=== PATIENT | female | born 1955 | race Hispanic/Latino ===

== ENCOUNTER 2018-09-09 10:29 | Day surgery (SDC) | payer OTHER ==
[2018-09-09] MEDS ORDERED: NA CHLORIDE 0.9% 250 ML ONE (10:58)
[2018-09-09] MEDS ORDERED: Zoledronic Acid/Mannitol/Water 5 MG/100 ML INFUS.BOT IV NR (11:00)
== END 2018-09-09 12:15 | disposition home health service (06) ==
LOC: DS 10:29
PROVIDERS: ATTEND Clinical Nurse Specialist Women's Health
DX: M81.0 Age-related osteoporosis without current pathological fracture (principal)
CPT/HCPCS: 96365; 96366; J3489

== ENCOUNTER 2018-09-25 12:27 | Emergency (ER) | payer OTHER ==
[2018-09-25 13:34] LABS: Absolute Lymphocytes (CBC) 2.3 K/uL (0.7-4.9); Basophils % 0.3 % (0-1.3); Eosinophils % 0.4 % (0-4.4); Lymphocytes % 25.1 % (15.3-44.8); MPV 10.1 fL (7.6-11.3); Monocytes % 7.7 % (3.3-12.3); RBC Red Blood Cell Count 4.65 M/uL (3.86-4.86)
[2018-09-25 13:48] LABS: Albumin 3.8 g/dL (3.4-5.0); Bilirubin Total 0.3 mg/dL (0.2-1.0); Potassium 3.6 mmol/L (3.5-5.1); Protein, Total 8.4 g/dL (6.4-8.2)
[2018-09-25 14:24] LABS: Urine Blood TRACE (NEG); Urine Glucose NEGATIVE (NEG); Urine Protein TRACE (NEG); Urine Specific Gravity 1.025 (1.005-1.030)
[2018-09-25] MEDS ORDERED: NA CHLORIDE 0.9% 500 ML ONE (15:07)
--- NOTE | 2018-09-25 15:29 | EDPHYS ---
Physician Documentation [facility] Name: Bria Ernandez Age: 63 yrs Sex: Female : 1955 Arrival Date: 09/25/2018 Time: 12:28 Bed 24 Private MD: ED Physician Doe Rajan HPI: 09/25 13:04 This 63 yrs old Female presents to ER via Ambulatory with complaints of jmm Fatigue. 13:04 fatigue. Onset: The symptoms/episode began/occurred gradually, 2 month(s) ago. This is jmm a 63 year old female with a history of htn that presents to the ED with complaints of fatigue, weakness beginning approx 2 months ago. Patient states symptoms began after taking a medication for osteoporosis. Daughter states the patient's symptoms worsened today. Patient denies joint pain. Denies chest pain, denies shortness of breath. . Historical: - Allergies: 12:40 No Known Allergies; la1 - Home Meds: 12:40 amlodipine 10 mg tab 1 tab once daily [Active]; aspirin 325 mg Oral tab 1 tab once la1 daily [Active]; - PMHx: 12:40 Hypertension; la1 - PSHx: 12:40 Cholecystectomy; breast augmentation; oophorectomy rina; la1 - Immunization history:: Adult Immunizations up to date. - Social history:: Smoking status: Patient/guardian denies using tobacco. - Ebola Screening: : No symptoms or risks identified at this time. ROS: 13:04 Cardiovascular: Negative for chest pain, palpitations, and edema, Respiratory: Negative jm for shortness of breath, cough, wheezing, and pleuritic chest pain, Abdomen/GI: Negative for abdominal pain, nausea, vomiting, diarrhea, and constipation, MS/Extremity: Negative for injury and deformity, Neuro: Negative for headache, weakness, numbness, tingling, and seizure. 13:04 Constitutional: Positive for malaise. 13:04 All other systems are negative. Exam: 13:04 Constitutional: This is a well developed, well nourished patient who is awake, alert, jmm and in no acute distress. Head/Face: atraumatic. Eyes: EOMI, no conjunctival erythema appreciated ENT: Moist Mucus Membranes Neck: Trachea midline, Supple Chest/axilla: Normal chest wall appearance and motion. Cardiovascular: Regular rate and rhythm. No edema appreciated Respiratory: Normal respirations, no respiratory distress appreciated Abdomen/GI: Non distended, soft Back: Normal ROM Skin: General appearance color normal MS/ Extremity: Moves all extremities, no obvious deformities appreciated, no edema noted to the lower extremities Neuro: Awake and alert, normal gait Psych: Behavior is normal, Mood is normal, Patient is cooperative and pleasant Vital Signs: 12:41 BP 144 / 67; Pulse 80; Resp 16; Temp 98.7(TE); Pulse Ox 98% on R/A; Weight 56.7 kg; la1 Height 5 ft. 2 in. (157.48 cm); 14:54 BP 130 / 74; Pulse 67; Resp 16; Pulse Ox 98% on R/A; la1 15:33 BP 128 / 72; Pulse 66; Resp 16; Temp 98.4; Pulse Ox 99% on R/A; rv 12:41 Body Mass Index 22.86 (56.70 kg, 157.48 cm) la1 MDM: 13:04 Patient medically screened. stephanie 15:23 Data reviewed: vital signs, nurses notes. Counseling: I had a detailed discussion with stephanie the patient and/or guardian regarding: the historical points, exam findings, and any diagnostic results supporting the discharge/admit diagnosis, lab results, the need for outpatient follow up, to return to the emergency department if symptoms worsen or persist or if there are any questions or concerns that arise at home. ED course: Patient is alert and non toxic in appearance. Patient states feeling much better after IVF. Patient prescribed oral antibiotics. patient advised to follow up with pcp for further evaluation and otherwise given strict return precautions. . 09/25 13:06 Order name: CBC with Diff; Complete Time: 13:40 [facility] 09/25 13:06 Order name: CMP; Complete Time: 13:58 [facility] 09/25 13:06 Order name: Saline Lock; Complete Time: 13:30 [facility] 09/25 13:21 Order name: Urine Dipstick--Ancillary (enter results); Complete Time: 14:25 [facility] 09/25 13:40 Order name: Troponin (emerg Dept Use Only); Complete Time: 14:28 [facility] 09/25 13:06 Order name: EKG - Nurse/Tech; Complete Time: 13:30 [facility] 09/25 13:06 Order name: Urine Dipstick-Ancillary (obtain specimen); Complete Time: 13:20 [facility] Administered Medications: 14:53 Drug: NS 0.9% 500 ml Route: IV; Rate: bolus; Site: right antecubital; la1 15:15 Follow up: IV Status: Completed infusion; IV Intake: 500ml rv Disposition: 15:43 Co-signature as Attending Physician, Doe Rajan MD. rn Disposition: 09/25/18 15:28 Discharged to Home. Impression: Dehydration, Malaise and fatigue, Urinary tract infection, site not specified. - Condition is Stable. - Discharge Instructions: Dehydration, Elderly, Urinary Tract Infection, Adult, Fatigue. - Prescriptions for Cephalexin 500 mg Oral Capsule - take 1 capsule by ORAL route every 12 hours for 10 days; 20 capsule. - Medication Reconciliation Form, Thank You Letter, Antibiotic Education, Prescription Opioid Use form. - Follow up: Private Physician; When: 2 - 3 days; Reason: Recheck today's complaints, Continuance of care, Re-evaluation by your physician. Signatures: Dispatcher [employer] EDMS Malachi Manzano PA PA [facility] Doe Rajan MD MD rn Attema, Lee, RN RN la1 Jaime Anaya RN RN rv Corrections: (The following items were deleted from the chart) 15:34 15:28 09/25/2018 15:28 Discharged to Home. Impression: Dehydration; Malaise and rv fatigue; Urinary tract infection, site not specified. Condition is Stable. Forms are Medication Reconciliation Form, Thank You Letter, Antibiotic Education, Prescription Opioid Use. Follow up: Private Physician; When: 2 - 3 days; Reason: Recheck today's complaints, Continuance of care, Re-evaluation by your physician. [facility]
--- NOTE | 2018-09-25 15:29 | ER ---
Nurse's Notes [facility] Name: Bria Ernandez Age: 63 yrs Sex: Female : 1955 Arrival Date: 09/25/2018 Time: 12:28 Bed 24 Private MD: Diagnosis: Dehydration;Malaise and fatigue;Urinary tract infection, site not specified Presentation: 09/25 12:40 Presenting complaint: Patient states: I have been feeling really tired for 2 months, la1 just really exhausted this morning. Transition of care: patient was not received from another setting of care. Onset of symptoms was September 25, 2018. Risk Assessment: Do you want to hurt yourself or someone else? Patient reports no desire to harm self or others. Initial Sepsis Screen: Does the patient meet any 2 criteria? No. Patient's initial sepsis screen is negative. Does the patient have a suspected source of infection? No. Patient's initial sepsis screen is negative. Care prior to arrival: None. 12:40 Method Of Arrival: Ambulatory la1 12:40 Acuity: NED 3 la1 Historical: - Allergies: 12:40 No Known Allergies; la1 - Home Meds: 12:40 amlodipine 10 mg tab 1 tab once daily [Active]; aspirin 325 mg Oral tab 1 tab once la1 daily [Active]; - PMHx: 12:40 Hypertension; la1 - PSHx: 12:40 Cholecystectomy; breast augmentation; oophorectomy rina; la1 - Immunization history:: Adult Immunizations up to date. - Social history:: Smoking status: Patient/guardian denies using tobacco. - Ebola Screening: : No symptoms or risks identified at this time. Screenin:51 Abuse screen: Denies threats or abuse. Nutritional screening: No deficits noted. la1 Tuberculosis screening: No symptoms or risk factors identified. Fall Risk None identified. Assessment: 12:51 General: Appears in no apparent distress. Behavior is calm, cooperative. Pain: Denies la1 pain. Neuro: Level of Consciousness is awake, alert, obeys commands, Oriented to person, place, time, situation. Cardiovascular: Capillary refill < 3 seconds Patient's skin is warm and dry. Respiratory: Airway is patent Respiratory effort is even, unlabored, Respiratory pattern is regular, symmetrical, Breath sounds are clear bilaterally. GI: Abd is soft and non tender X 4 quads. : No signs and/or symptoms were reported regarding the genitourinary system. 14:47 Reassessment: Patient appears in no apparent distress at this time. No changes from la1 previously documented assessment. Patient and/or family updated on plan of care and expected duration. Pain level reassessed. Patient is alert, oriented x 3, equal unlabored respirations, skin warm/dry/pink. 15:15 Reassessment: Patient appears in no apparent distress at this time. Patient and/or rv family updated on plan of care and expected duration. Pain level reassessed. Patient is alert, oriented x 3, equal unlabored respirations, skin warm/dry/pink. patient is awake. does not complain of any pain,. Patient denies pain at this time. Vital Signs: 12:41 BP 144 / 67; Pulse 80; Resp 16; Temp 98.7(TE); Pulse Ox 98% on R/A; Weight 56.7 kg; la1 Height 5 ft. 2 in. (157.48 cm); 14:54 BP 130 / 74; Pulse 67; Resp 16; Pulse Ox 98% on R/A; la1 15:33 BP 128 / 72; Pulse 66; Resp 16; Temp 98.4; Pulse Ox 99% on R/A; rv 12:41 Body Mass Index 22.86 (56.70 kg, 157.48 cm) la1 ED Course: 12:28 Patient arrived in ED. as 12:40 Arm band placed on left wrist. la1 12:41 Triage completed. la1 12:45 Malachi Manzano PA is PHCP. [facility] 12:45 Doe Rajan MD is Attending Physician. [facility] 12:51 Adeline Moulton, DUC is Primary Nurse. la1 12:51 Placed in gown. Bed in low position. Call light in reach. la1 13:30 No provider procedures requiring assistance completed. Inserted saline lock: 20 gauge la1 in right antecubital area, using aseptic technique. Blood collected. 15:16 Report received from adeline harman. rv 15:34 IV discontinued, intact, bleeding controlled, No redness/swelling at site. Pressure rv dressing applied. Administered Medications: 14:53 Drug: NS 0.9% 500 ml Route: IV; Rate: bolus; Site: right antecubital; la1 15:15 Follow up: IV Status: Completed infusion; IV Intake: 500ml rv Intake: 15:15 IV: 500ml; Total: 500ml. rv Outcome: 15:28 Discharge ordered by . stephanie 15:34 Discharged to home ambulatory. rv 15:34 Condition: good 15:34 Discharge instructions given to patient, family, Instructed on discharge instructions, follow up and referral plans. medication usage, Demonstrated understanding of instructions, follow-up care, medications, Prescriptions given X 1. 15:34 Patient left the ED. rv Signatures: Malachi Manzano PA PA jmm Martinez, Amelia as Attema, Lee, RN RN la1 Jaime Anaya RN RN rv
--- NOTE | 2018-09-25 20:10 | EKG ---
Test Date: 2018-09-25 Test Time: 13:26:32 Nutrition Program Instructor: LA MEASUREMENT RESULTS: Intervals: Rate: 74 MS: 146 QRSD: 80 QT: 414 QTc: 459 [place]: P: 83 MS: 146 QRS: -7 T: 29 INTERPRETIVE STATEMENTS: Normal sinus rhythm Normal ECG Compared to ECG 04/10/2010 11:44:13 No significant changes Electronically Signed On 09-25-18 20:08:26 CDT by Seferino Malik
== END 2018-09-25 15:34 | disposition home or self-care (01) ==
LOC: ER 12:27
DX: N39.0 Urinary tract infection, site not specified (principal); E86.0 Dehydration; I10 Essential (primary) hypertension
CPT/HCPCS: 36415; 80053; 81003; 84484; 85025; 93005; 99284

== ENCOUNTER 2019-01-24 19:54 | Emergency (ER) | payer OTHER ==
[2019-01-24] MEDS ORDERED: NA CHLORIDE 0.9% 1,000 ML ONE (21:20)
[2019-01-24] MEDS ORDERED: FOLIC ACID 5 MG/ML VIAL ONE (21:21)
[2019-01-24] MEDS ORDERED: NA CHLORIDE 0.9% 50 ML IV ONE (21:24)
[2019-01-24 21:33] LABS: Absolute Lymphocytes (CBC) 2.6 K/uL (0.7-4.9); Basophils % 0.3 % (0-1.3); Lymphocytes % 24.4 % (15.3-44.8); MPV 11.2 fL (7.6-11.3); RBC Red Blood Cell Count 4.42 M/uL (3.86-4.86)
[2019-01-24 21:36] LABS: Protime INR 1.09
[2019-01-24] MEDS ORDERED: dexAMETHasone 10 MG/ML VIAL ONE (21:51)
[2019-01-24] MEDS ORDERED: LEVETIRACETAM 500 MG/5 ML VIAL IV ONE (21:51)
[2019-01-24] MEDS ORDERED: NA CHLORIDE 0.9% 100 ML IV ONE (21:52)
--- NOTE | 2019-01-24 21:59 | ER ---
Nurse's Notes [facility] Name: Bria Ernandez Age: 63 yrs Sex: Female : 1955 Arrival Date: 01/24/2019 Time: 19:[address] Private MD: Diagnosis: Ataxic gait;Cerebral edema-right frontal brain mass Presentation: 01/24 20:20 Presenting complaint: Patient states: PATIENT LOST HER BALANCE THIS MORNING AROUND 9AM rv AND FELL WHILE AT WORK. SHE HAS HISTORY OF STROKE, 8 YEARS AGO, AND IS ALREADY WEAK ON THE RIGHT LEG. JULY OF THIS YEAR, SHE STARTED HAVING TROUBLE WITH HER LEFT LEG. SHE WAS SEEN BY HER DOCTORS AND IS BEING TREATED FOR OSTEOPOROSIS. TODAY, WEAKNESS IS GETTING WORSE. Transition of care: patient was not received from another setting of care. Onset of symptoms was January 24, 2019 at 09:00. Risk Assessment: Do you want to hurt yourself or someone else? Patient reports no desire to harm self or others. Initial Sepsis Screen: Does the patient meet any 2 criteria? No. Patient's initial sepsis screen is negative. Does the patient have a suspected source of infection? No. Patient's initial sepsis screen is negative. Care prior to arrival: None. 20:20 Method Of Arrival: Wheelchair rv 20:20 Acuity: NED 3 rv Historical: - Allergies: 20:23 No Known Allergies; rv - Home Meds: 20:23 amlodipine 10 mg oral tab [Active]; aspirin 325 mg Oral tab 1 tab once daily [Active]; rv - PMHx: 20:23 Hypertension; CVA; rv - PSHx: 20:23 Cholecystectomy; rv - Immunization history:: Adult Immunizations up to date, Flu vaccine is up to date. - Social history:: Smoking status: Patient/guardian denies using tobacco. - Ebola Screening: : No symptoms or risks identified at this time. Screenin:20 Abuse screen: Denies threats or abuse. Denies injuries from another. Nutritional cc3 screening: No deficits noted. Tuberculosis screening: No symptoms or risk factors identified. Fall Risk Ambulatory Aid- None/Bed Rest/Nurse Assist (0 pts). Gait- Weak (10 pts.). Mental Status- Oriented to own ability (0 pts). 20:20 VAN Screening: Arm Drift: Patient shows no arm weakness. Patient is VAN negative. cc3 Visual Disturbance: No visual disturbance noted. Aphasia: No aphasia noted. Neglect: No neglect noted. 20:45 Patient has been NPO before screening. The patient is alert, able to follow commands. cc3 The patient does not exhibit slurred or garbled speech The patient is not exhibiting difficulty speaking. The patient does not exhibit difficulty understanding words. The patient is able to swallow own secretions with no drooling or need for suction. Patient tolerated one teaspoon of water. No drooling, immediate coughing, gurgling, or clearing of the throat was noted. The patient tolerated 90mL of water. No drooling, immediate coughing, gurgling, or clearing of the throat was noted. The patient passed the bedside swallow screening. Oral medications may be given as ordered. Contact Physician for further diet orders. Provider notified of bedside swallow screening results: Ruiz Pleitez MD. Assessment: 20:20 General: Appears in no apparent distress. uncomfortable, Behavior is calm, cooperative, cc3 appropriate for age. Pain: Denies pain. Neuro: Level of Consciousness is awake, alert, obeys commands, Oriented to person, place, time, situation, Appropriate for age Sales Person are weak on left Weakness in left leg(s) Gait is unsteady, Speech is normal, Facial symmetry appears normal, Pupils are PERRLA, Intact. Cardiovascular: Denies chest pain, Heart tones S1 S2 present Capillary refill < 3 seconds in bilateral fingers Patient's skin is warm and dry. Respiratory: Airway is patent Respiratory effort is even, unlabored, Respiratory pattern is regular, symmetrical, Breath sounds are clear bilaterally. GI: Abdomen is flat, Bowel sounds present X 4 quads. Abd is soft and non tender X 4 quads. : No signs and/or symptoms were reported regarding the genitourinary system. EENT: No signs and/or symptoms were reported regarding the EENT system. Derm: Skin is intact, is healthy with good turgor, Skin is pink, warm \T\ dry. normal. Musculoskeletal: Circulation, motion, and sensation intact. Range of motion: weakness in left leg. 21:10 Reassessment: Patient appears in no apparent distress at this time. Patient and/or cc3 family updated on plan of care and expected duration. Pain level reassessed. Patient is alert, oriented x 3, equal unlabored respirations, skin warm/dry/pink. 22:50 Reassessment: Patient appears in no apparent distress at this time. Patient and/or cc3 family updated on plan of care and expected duration. Pain level reassessed. Patient is alert, oriented x 3, equal unlabored respirations, skin warm/dry/pink. Patient for transfer to [facility], report called and handed over to RN Deo O. Transfer form completed and signed by the patient's daughter. 23:40 Reassessment: Patient appears in no apparent distress at this time. Patient and/or cc3 family updated on plan of care and expected duration. Pain level reassessed. Patient is alert, oriented x 3, equal unlabored respirations, skin warm/dry/pink. [facility] came for patient transport. Patient left ER vitally stable by EMS stretcher with her daughter. No valuables left in the patient's room. Patient denies pain at this time. Patient states feeling better. Vital Signs: 20:22 BP 144 / 68; Pulse 66; Resp 16; Temp 98.4; Pulse Ox 99% ; Weight 54.43 kg; Height 5 ft. rv 2 in. (157.48 cm); 21:00 BP 146 / 91; Pulse 63; Resp 16 S; Pulse Ox 98% on R/A; cc3 22:45 BP 107 / 69; Pulse 60; Resp 18 S; Pulse Ox 99% on R/A; cc3 23:25 BP 118 / 62; Pulse 72; Resp 16 S; Pulse Ox 99% on R/A; Pain 0/10; cc3 20:22 Body Mass Index 21.95 (54.43 kg, 157.48 cm) rv NIH Stroke Scale Scores: 20:20 NIHSS Score: 0 cc3 ED Course: 19:57 Patient arrived in ED. cf2 20:20 Ruiz Pleitez MD is Attending Physician. suresh 20:20 Patient has correct armband on for positive identification. Placed in gown. Bed in low cc3 position. Call light in reach. Side rails up X2. air sampling and monitoring on. Pulse ox on. NIBP on. 20:20 Arm band placed on right wrist. EKG completed in triage. Results shown to . cc3 20:22 Beatriz Dave is Primary Nurse. cc3 20:22 Triage completed. rv 20:45 Inserted saline lock: 20 gauge in right antecubital area, using aseptic technique. cc3 Blood collected. 21:35 CT Head Brain wo Cont In Process Unspecified. EDMS 22:00 US Carotid Artery Bilateral In Process Unspecified. EDMS 22:01 XRAY Chest (1 view) In Process Unspecified. EDMS 22:17 Urine collected: clean catch specimen, clear, fritz colored. fc 22:18 Urine Culture Sent. fc 22:50 No provider procedures requiring assistance completed. Patient transferred, IV remains cc3 in place. Administered Medications: 22:00 Drug: foLIC Acid 1 mg Route: IVPB; Site: right antecubital; cc3 22:15 Follow up: Response: No adverse reaction; IV Status: Completed infusion; IV Intake: [id number] 22:00 Drug: NS 0.9% 1000 ml Route: IV; Rate: 1 bolus; Site: right antecubital; cc3 23:00 Follow up: Response: No adverse reaction; IV Status: Completed infusion; IV Intake: cc3 1000ml 22:00 Drug: Decadron - Dexamethasone 10 mg Route: IVP; Site: right antecubital; cc3 22:30 Follow up: Response: No adverse reaction cc3 22:23 Drug: Keppra 1000 mg Route: IV; Rate: per protocol; Site: right antecubital; cc3 22:45 Follow up: Response: No adverse reaction; IV Status: Completed infusion; IV Intake: cc3 100ml Intake: 22:15 IV: 50ml; Total: 50ml. cc3 22:45 IV: 100ml; Total: 150ml. cc3 23:00 IV: 1000ml; Total: 1150ml. cc3 Outcome: 21:58 ER care complete, transfer ordered by . suresh 22:50 Transferred by ground EMS to [facility], Transfer form completed. cc3 X-rays sent w/ patient. 22:50 Condition: stable 22:50 Instructed on the need for transfer, Demonstrated understanding of instructions. 23:41 Patient left the ED. cc3 NIH Stroke Scale - NIH Stroke Score Date: 01/24/2019 Time: 20:20 Total Score = 0 1a. Level of Consciousness (LOC) - 0(Alert) 1b. Level of Consciousness (LOC) (Year \T\ Age) - 0(Both) 1c. LOC Commands (Open \T\ Closes Eyes/Brick Maker) - 0(Both) 2. Best Gaze (Lateral Gaze Paresis) - 0(Normal) 3. Visual Field Loss - 0(No visual loss) 4. Facial Palsy - 0(Normal) 5a. Left Arm: Motor (10-second hold) - 0(No drift) 5b. Right Arm: Motor (10-second hold) - 0(No drift) 6a. Left Leg: Motor (5-second hold - always test supine) - 0(No drift) 6b. Right Leg: Motor (5-second hold - always test supine) - 0(No drift) 7. Limb Ataxia (finger/nose \T\ heel/whitehead - test with eyes open) - 0(Absent) 8. Sensory Loss (pinprick arms/legs/face) - 0(Normal) 9. Best Language: Aphasia (description/naming/reading) - 0(No aphasia) 10. Dysarthria (speech clarity - read or repeat words) - 0(Normal) 11. Extinction and Inattention (visual/tactile/auditory/spatial/personal) - 0(No abnormality) Initials: cc3 Signatures: Dispatcher [employer] EDMS Ruiz Pleitez MD MD cha Chretien, Felicia, RN RN Jaime Diaz RN Beatriz Douglas cc3 Nirav Lyons 2
--- NOTE | 2019-01-24 21:59 | EDPHYS ---
Physician Documentation [facility] Name: Bria Ernandez Age: 63 yrs Sex: Female : 1955 Arrival Date: 01/24/2019 Time: 19:[address] Private MD: ED Physician Ruiz Pleitez HPI: 01/24 21:20 This 63 yrs old Female presents to ER via Wheelchair with complaints of suresh General Weakness, Off Balance. 21:20 The patient presents with feeling off balance. Onset: The symptoms/episode suresh began/occurred. Historical: - Allergies: 20:23 No Known Allergies; rv - Home Meds: 20:23 amlodipine 10 mg oral tab [Active]; aspirin 325 mg Oral tab 1 tab once daily [Active]; rv - PMHx: 20:23 Hypertension; CVA; rv - PSHx: 20:23 Cholecystectomy; rv - Immunization history:: Adult Immunizations up to date, Flu vaccine is up to date. - Social history:: Smoking status: Patient/guardian denies using tobacco. - Ebola Screening: : No symptoms or risks identified at this time. ROS: 21:27 Constitutional: Negative for fever, chills, and weight loss, Eyes: Negative for injury, suresh pain, redness, and discharge, ENT: Negative for injury, pain, and discharge, Neck: Negative for injury, pain, and swelling, Cardiovascular: Negative for chest pain, palpitations, and edema, Respiratory: Negative for shortness of breath, cough, wheezing, and pleuritic chest pain, Abdomen/GI: Negative for abdominal pain, nausea, vomiting, diarrhea, and constipation, Back: Negative for injury and pain, : Negative for injury, bleeding, discharge, and swelling, MS/Extremity: Negative for injury and deformity, Skin: Negative for injury, rash, and discoloration, Psych: Negative for depression, anxiety, suicide ideation, homicidal ideation, and hallucinations, Allergy/Immunology: Negative for hives, rash, and allergies, Endocrine: Negative for neck swelling, polydipsia, polyuria, polyphagia, and marked weight changes, Hematologic/Lymphatic: Negative for swollen nodes, abnormal bleeding, and unusual bruising. 21:27 Neuro: Positive for dizziness, gait disturbance, weakness. Exam: 21:27 Constitutional: This is a well developed, well nourished patient who is awake, alert, suresh and in no acute distress. Head/Face: Normocephalic, atraumatic. Eyes: Pupils equal round and reactive to light, extra-ocular motions intact. Lids and lashes normal. Conjunctiva and sclera are non-icteric and not injected. Cornea within normal limits. Periorbital areas with no swelling, redness, or edema. ENT: Nares patent. No nasal discharge, no septal abnormalities noted. Tympanic membranes are normal and external auditory canals are clear. Oropharynx with no redness, swelling, or masses, exudates, or evidence of obstruction, uvula midline. Mucous membranes moist. Neck: Trachea midline, no thyromegaly or masses palpated, and no cervical lymphadenopathy. Supple, full range of motion without nuchal rigidity, or vertebral point tenderness. No Meningismus. Chest/axilla: Normal chest wall appearance and motion. Nontender with no deformity. No lesions are appreciated. Cardiovascular: Regular rate and rhythm with a normal S1 and S2. No gallops, murmurs, or rubs. Normal PMI, no JVD. No pulse deficits. Respiratory: Lungs have equal breath sounds bilaterally, clear to auscultation and percussion. No rales, rhonchi or wheezes noted. No increased work of breathing, no retractions or nasal flaring. Abdomen/GI: Soft, non-tender, with normal bowel sounds. No distension or tympany. No guarding or rebound. No evidence of tenderness throughout. Back: No spinal tenderness. No costovertebral tenderness. Full range of motion. Female : Normal external genitalia. Skin: Warm, dry with normal turgor. Normal color with no rashes, no lesions, and no evidence of cellulitis. MS/ Extremity: Pulses equal, no cyanosis. Neurovascular intact. Full, normal range of motion. Neuro: Awake and alert, GCS 15, oriented to person, place, time, and situation. Cranial nerves II-XII grossly intact. Motor strength 5/5 in all extremities. Sensory grossly intact. Cerebellar exam normal. Normal gait. Psych: Awake, alert, with orientation to person, place and time. Behavior, mood, and affect are within normal limits. Vital Signs: 20:22 BP 144 / 68; Pulse 66; Resp 16; Temp 98.4; Pulse Ox 99% ; Weight 54.43 kg; Height 5 ft. rv 2 in. (157.48 cm); 21:00 BP 146 / 91; Pulse 63; Resp 16 S; Pulse Ox 98% on R/A; cc3 22:45 BP 107 / 69; Pulse 60; Resp 18 S; Pulse Ox 99% on R/A; cc3 23:25 BP 118 / 62; Pulse 72; Resp 16 S; Pulse Ox 99% on R/A; Pain 0/10; cc3 20:22 Body Mass Index 21.95 (54.43 kg, 157.48 cm) rv NIH Stroke Scale Scores: 20:20 NIHSS Score: 0 cc3 MDM: 20:20 Patient medically screened. [facility] 21:28 Data reviewed: vital signs, nurses notes, lab test result(s), EKG, radiologic studies, [facility] CT scan, plain films. 01/24 21:11 Order name: Basic Metabolic Panel; Complete Time: 23:06 [facility] 01/24 21:11 Order name: CBC with Diff; Complete Time: 23:06 [facility] 01/24 21:11 Order name: LFT's; Complete Time: 23:06 [facility] 01/24 21:11 Order name: Magnesium; Complete Time: 23:06 [facility] 01/24 21:11 Order name: NT PRO-BNP; Complete Time: 23:06 [facility] 01/24 21:11 Order name: PT-INR; Complete Time: 21:54 [facility] 01/24 21:11 Order name: Troponin (emerg Dept Use Only); Complete Time: 23:06 [facility] 01/24 21:11 Order name: XRAY Chest (1 view) [facility] 01/24 21:11 Order name: CT Head Brain wo Cont [facility] 01/24 21:11 Order name: Urine Culture [facility] 01/24 21:11 Order name: CRP; Complete Time: 23:06 [facility] 01/24 21:11 Order name: Sed Rate; Complete Time: 23:06 [facility] 01/24 21:28 Order name: US Carotid Artery Bilateral [facility] 01/24 22:18 Order name: Urine Dipstick--Ancillary (enter results); Complete Time: 23:06 cm6 01/24 21:11 Order name: EKG; Complete Time: 21:12 [facility] 01/24 21:11 Order name: Cardiac monitoring; Complete Time: 21:16 [facility] 01/24 21:11 Order name: EKG - Nurse/Tech; Complete Time: 21:16 [facility] 01/24 21:11 Order name: IV Saline Lock; Complete Time: 21:16 [facility] 01/24 21:11 Order name: Labs collected and sent; Complete Time: 22:18 [facility] 01/24 21:11 Order name: O2 Per Protocol; Complete Time: 21:16 [facility] 01/24 21:11 Order name: O2 Sat Monitoring; Complete Time: 21:16 [facility] 01/24 21:11 Order name: Urine Dipstick-Ancillary (obtain specimen); Complete Time: 22:18 [facility] 01/24 21:58 Order name: Seizure Precautions; Complete Time: 22:23 [facility] Administered Medications: 22:00 Drug: foLIC Acid 1 mg Route: IVPB; Site: right antecubital; cc3 22:15 Follow up: Response: No adverse reaction; IV Status: Completed infusion; IV Intake: [id number] 22:00 Drug: NS 0.9% 1000 ml Route: IV; Rate: 1 bolus; Site: right antecubital; cc3 23:00 Follow up: Response: No adverse reaction; IV Status: Completed infusion; IV Intake: cc3 1000ml 22:00 Drug: Decadron - Dexamethasone 10 mg Route: IVP; Site: right antecubital; cc3 22:30 Follow up: Response: No adverse reaction cc3 22:23 Drug: Keppra 1000 mg Route: IV; Rate: per protocol; Site: right antecubital; cc3 22:45 Follow up: Response: No adverse reaction; IV Status: Completed infusion; IV Intake: cc3 100ml Disposition: 01/24/19 21:58 Transfer ordered to [facility]. Diagnosis are Ataxic gait, Cerebral edema - right frontal brain mass. - Reason for transfer: Higher level of care. - Accepting physician is to [facility]. - Condition is Fair. - Problem is new. - Symptoms are unchanged. NIH Stroke Scale - NIH Stroke Score Date: 01/24/2019 Time: 20:20 Total Score = 0 1a. Level of Consciousness (LOC) - 0(Alert) 1b. Level of Consciousness (LOC) (Year \T\ Age) - 0(Both) 1c. LOC Commands (Open \T\ Closes Eyes/Human Anatomy Teacher) - 0(Both) 2. Best Gaze (Lateral Gaze Paresis) - 0(Normal) 3. Visual Field Loss - 0(No visual loss) 4. Facial Palsy - 0(Normal) 5a. Left Arm: Motor (10-second hold) - 0(No drift) 5b. Right Arm: Motor (10-second hold) - 0(No drift) 6a. Left Leg: Motor (5-second hold - always test supine) - 0(No drift) 6b. Right Leg: Motor (5-second hold - always test supine) - 0(No drift) 7. Limb Ataxia (finger/nose \T\ heel/whitehead - test with eyes open) - 0(Absent) 8. Sensory Loss (pinprick arms/legs/face) - 0(Normal) 9. Best Language: Aphasia (description/naming/reading) - 0(No aphasia) 10. Dysarthria (speech clarity - read or repeat words) - 0(Normal) 11. Extinction and Inattention (visual/tactile/auditory/spatial/personal) - 0(No abnormality) Initials: cc3 Signatures: Dispatcher [employer] EDRuiz Cruz MD MD cha Vicente, Ronaldo, RN RN Beatriz Mendoza cc3 Corrections: (The following items were deleted from the chart) 23:41 21:58 01/24/2019 21:58 Transfer ordered to [facility]. cc3 Diagnosis is Ataxic gait; Cerebral edema - right frontal brain mass. Reason for transfer: Higher level of care. Accepting physician is to [facility]u. Condition is Fair. Problem is new. Symptoms are unchanged. suresh
[2019-01-24 22:02] LABS: ALT/SGPT 19 U/L (12-78); AST/SGOT 13 U/L (15-37); Albumin 3.8 g/dL (3.4-5.0); Alkaline Phosphatase 52 U/L (45-117); BUN Blood Urea Nitrogen 22 mg/dL (7-18); Bicarbonate 27 mmol/L (21-32); Bilirubin Direct 0.1 mg/dL (0-0.2); Bilirubin Total 0.3 mg/dL (0.2-1.0); Glucose Level 102 mg/dL (74-106); Magnesium 2.3 mg/dL (1.8-2.4); NT PRO-BNP 147 pg/mL (<125); Potassium 3.6 mmol/L (3.5-5.1); Sodium Level 142 mmol/L (136-145); Troponin (Emerg Dept Use Only) < 0.02 ng/mL (0.0-0.045)
[2019-01-24 22:10] LABS: C-Reactive Protein < 2.90 mg/L (<3.00)
[2019-01-24 22:27] LABS: Urine Blood TRACE (NEG); Urine Glucose NEGATIVE (NEG); Urine Protein NEGATIVE (NEG)
[2019-01-24 23:56] VITALS: BP 144/68; TEMP 98.4; O2SAT 99
--- NOTE | 2019-01-25 07:44 | EKG ---
Test Date: 2019-01-24 Test Time: 20:29:47 Frame Feeder: LONG MEASUREMENT RESULTS: Intervals: Rate: 59 MO: 144 QRSD: 84 QT: 446 QTc: 441 [place]: P: 59 MO: 144 QRS: 7 T: 48 INTERPRETIVE STATEMENTS: Sinus bradycardia Possible Anterior infarct, age undetermined Abnormal ECG Compared to ECG 09/25/2018 13:26:32 Myocardial infarct finding now present Sinus rhythm no longer present Electronically Signed On 01-25-19 07:43:21 [employer]AL [employer] by Seferino Malik
--- NOTE | 2019-01-25 07:59 | RAD REPORT ---
EXAM DESCRIPTION: RAD - Chest Single View - 01/24/2019 10:02 pm CLINICAL HISTORY: Cough, shortness of breath COMPARISON: March 2010 TECHNIQUE: AP portable chest image was obtained 2201 hours . FINDINGS: No focal mass or consolidation. Heart size and vasculature are normal range. Prominent int erstitial opacification present. This is increased from 2010. In the acute setting this could be inte rstitial edema or infiltrate. Progressive fibrosis is possible as well. No measurable pleural effusio n and no pneumothorax. No acute bony abnormality seen. No acute aortic findings suspected. IMPRESSION: No focal mass or consolidation. Prominent interstitial pattern could be interstitial edema, interstitial infiltrate, progressive fibr osis or a combination.
--- NOTE | 2019-01-25 08:20 | RAD REPORT ---
EXAM DESCRIPTION: - CP - 01/24/2019 10:00 pm CLINICAL HISTORY: Dizziness, syncope COMPARISON: None. TECHNIQUE: Real-time sonographic evaluation of both carotid systems was performed. Barnes scale and Do ppler interrogation were performed with waveform tracing bilaterally. FINDINGS: Normal high resistance waveforms are noted in both external carotid arteries. The common c arotid arteries and internal carotid arteries show normal low resistance waveforms. No significant plaque formation is seen. No dissection. Peak systolic and end diastolic velocity valu es and the ICA/CCA ratios are in the non-hemodynamically significant range. Antegrade flow seen in both vertebral arteries. Velocity values and ratios were recorded and are retained in the patient's imaging records. IMPRESSION: No significant atherosclerotic changes noted. No evidence of a hemodynamically significant stenosis.
--- NOTE | 2019-01-25 11:51 | RAD REPORT ---
EXAM DESCRIPTION: CT - Head Brain Wo Cont - 01/25/2019 1:21 am CLINICAL HISTORY: 63 years Female DIZZINESS COMPARISON: None TECHNIQUE: Contiguous axial images of the brain were obtained without the administration of intraven ous contrast.This exam was performed according to our departmental dose-optimization program which in cludes use of Automated Exposure Control, adjustment of the mA and/or kV according to patient size an d/or use of iterative reconstruction technique. FINDINGS: Brain: Hyperdense parafalcine right frontal mass measuring 2.6 x 2.2 cm. There is vasogeni c edema and small right frontal lobe with mass effect/leftward displacement of the anterior falx. 3.6 x 3.5 cm rounded and subcortical hypodensity in the parafalcine right frontal lobe. Right frontal sanchez lcal effacement as well as 3 mm leftward midline shift. No acute intracranial hemorrhage. No extra-ax ial collection. Ventricles: No hydrocephalus. Globes and orbits: No acute abnormality. Bones: No acute osseous finding Paranasal sinuses: Paranasal sinuses are clear. Mastoid air cells: Well pneumatized. Soft tissues: Within normal limits IMPRESSION: Questionable right frontal hypodense mass or right JULIO ischemic changes with regional ed man resulting in mass effect and 3 leftward midline shift. No intracranial hemorrhage. MRI brain with and without contrast is recommended for further characterization. Hyperdense right frontal mass measuring up to 2.6 cm with vasogenic edema. Finding may represent para falcine meningioma with surrounding vasogenic edema. THIS REPORT CONTAINS FINDINGS THAT MAY BE CRITICAL TO PATIENT'S CARE: The findings were verbally discussed via telephone conference with Ruiz Pleitez by Dr. Mcdonald on 01/24/2019 9:48 PM [employer]ESSIONAL [employer]. The results were acknowledged and understood. Electronically signed by: Aryan Mcdonald DO 01/24/2019 9:49 PM [employer]ESSION[employer] Due to temporary technical issues with the PACS/Fluency reporting system, reports are being signed by the in house radiologist as a courtesy to ensure prompt reporting. The interpreting radiologist is f ully responsible for the content of the report.
== END 2019-01-24 23:41 | disposition short-term general hospital (02) ==
LOC: ER 19:54
DX: G93.6 Cerebral edema (principal); G93.9 Disorder of brain, unspecified; I10 Essential (primary) hypertension; Z79.82 Long term (current) use of aspirin; Z86.73 Personal history of transient ischemic attack (TIA), and cerebral infarction without residual deficits
CPT/HCPCS: 96365; 96361; 93005; 87088; 85025; 87086; 80048; 36415; 83735; 85610; 80076; 85652; 81003; 84484; 83880; 86140; 70450; 71045; 93880; 96375; 99285; J1100; J1953; J7030

== ENCOUNTER 2019-02-08 10:03 | Inpatient (IN) | payer OTHER ==
--- NOTE | 2019-02-15 15:46 | R.PREADM ---
SCREENING DATE AND TIME 02/15/2019 14:06 ([facility] WMS CONSULTANT) ANTICIPATED REHAB ADMISSION DATE 02/17/2019 REFERRING FACILITY [facility] REFERRAL DATE AND TIME 02/15/2019 14:06 ([facility]ACLE WMS CONSULTANT) ACUTE ADMIT DATE 01/25/2019 Previous Rehabilitation(s): No. ACUTE BRIDGES SUPERVISOR/DC DIRECTOR MERIT SYSTEM Audra Simpson REFERRING PHYSICIAN Krissy Mendenhall REHAB FACILITY [facility] CLINICAL LIAISON Barb Romero PHYSICIAN REVIEWER Dr. Sawyer Rios M.D. MR# [id number] NAME GLENN WALKER ADDRESS [address] [facility] [id number] DATE OF 1955 AGE 63 SSN# [id number] GENDER female MARITAL STATUS RACE ADMIT FROM 02 - [facility] PRE-HOSPITAL LIVING SETTING 01 - Home (private home/apt. board/care, assisted living, [facility], transitional living) HOME TYPE AND DETAILS Type of home: single family house # of steps to enter the residence: 0 # of steps within the residence: 0 # of levels in the residence: 1 PRE-HOSPITAL LIVING WITH Alone FAMILY SUPPORT Yes PRIMARY FAMILY CONTACT NAME Jossy Vu PRIMARY FAMILY CONTACT PHONE PHONE PRIMARY FAMILY CONTACT ON ADM.? no IS PRIMARY FAMILY CONTACT AUTH. REP.? no 1ST EMERGENCY CONTACT Jossy Vu 1ST CONTACT PHONE PHONE 1ST CONTACT ON ADM. no IS 1ST CONTACT AUTH. REP.? no PHONE 2ND CONTACT ON ADM.? no PATIENT EMPLOYMENT STATUS Employed [employer] PA[employer] INFORMATION: 1ST PAYOR NAME Marilyn 1ST PAYOR PHONE 1ST PAYOR INJURY/ILLNESS DUE TO ACCIDENT? No ANOTHER CONSTITUTION PARTY RESPONSIBLE? No PRIMARY REHAB/ACUTE DIAGNOSIS: right centrum semivola 5x3 mm DWI hypertintense lesion suggestive of acute ischemic infarct ONSET DATE 01/25/2019 REHAB IMPAIRMENT CATEGORY (CHRISTY): 01 Stroke (STR) MEETS 60% rule AFFECTED EXTREMITIES: LLE, and LUE PRIMARY DIAGNOSIS-RELATED SURGERIES: No surgeries related to the primary diagnosis were performed. 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 is a 63 yo Right-handed female. On 01/25/2019 Pt. presented to [facility] with sudden onset of left-side w eakness. On 01/25/2019 she was admitted to [facility] with diagnosis right centrum semivola 5x3 mm DWI hypertintense lesion suggestive of acute ischemic infarct. Her impairment category is Stroke 01 - Left Body (Right Brain) (01.1). Pre-morbidly, Pt. was independent/mod-I in Locomotion, Endurance, Self-Care, Balance, Transfers Contr ol, Safety Awareness, Communication, and Safety Awareness and Self-Care; and she had good Sphincter C ontrol. Currently, she has deficits of Locomotion, Self-Care, Endurance, Balance, Transfers Control, Safety A wareness, Social Cognition, Ambulation, Communication, and Sphincter Control. Pt. is now referred to [facility] for acute in-patient rehabilitation in order to maximize patient's functional independence in activities of daily living, strength, ROM, and mobi lity. Patient has realistic goal of being discharged at assistance level 6-Danielle to reside at Home with Fam adriana/Relatives. 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) CONSTIPATION Cerebral edema (G93.6) Leukocytosis Neoplasm of unspecified behavior of brain (D49.6) Nontraumatic intracranial hemorrhage, unspecified (I62.9) Other abnormal findings on diagnostic imaging of central nervous system (R90.89) Other specified disorders of brain (G93.89) Other symptoms and signs involving the musculoskeletal system (R29.898) biliary ductal dilation possible cerebral amyloid MEDICATION ALLERGIES: No Known Drug Allergies (NKDA) ENVIRONMENTAL ALLERGIES: - Substance Allergies None Known - Other Allergies None Known CODE STATUS: Full code WEIGHT/HEIGHT/BMI: WEIGHT 120 lbs HEIGHT 5' 2" BMI 21.9 DIET: - Diet Type Regular - Diet - Solid Texture Regular - Diet - Liquid Texture Regular - Tube Feed N/A SKIN DIAGRAM: Incision on Head; extent - small; stage - NS(Not Stageable). Treatment - Per Physician's Orders. REVIEW OF SYSTEMS: - Gen Alert and awake Lying in bed No apparent distress Oriented to: person, time, and place - Vital Signs Vital signs stable, afebrile - CVS RRR VITAL SIGNS Temperature: 97.4 F SBP/DBP: 113/54 Pulse: 76 Resp: 18 Vital signs stable, afebrile MEDICATIONS/TREATMENT: Other- See attached MAR (Medication Administration Record). CURRENT SPHINCTER CONTROL: Pre-hospital bladder status: continent # of bladder accidents in the last 7 days prior to screenin Pre-hospital bowel status: continent # of bowel accidents in the last 7 days prior to screenin Last Bowel Movement Date: 02/15/2019 CURRENT LOCOMOTION STATUS: distance traveled in wheelchair 0 feet distance walked 0 feet DETAILED CURRENT FUNCTIONAL STATUS: - Bladder accident frequency: Ind - No accidents in the past 7 days - Bowel accident frequency: Ind - No accidents in the past 7 days - Walking score based on distance walked: 1(<=50ft) - Wheelchair score based on distance traveled: 1(<=50ft) QI SCORES: - Self-Care A. Eating 04-Supervision or touching assistance B. Oral hygiene 04-Supervision or touching assistance C. Toileting hygiene 01-Dependent E. Shower/bathe self 88-Not attempted due to medical condition or safety concerns F. Upper body dressing 02-Substantial/maximal assistance G. Lower body dressing 01-Dependent H. Putting on/taking off footwear 01-Dependent - Mobility A. Roll left and right 01-Dependent B. Sit to lying 02-Substantial/maximal assistance C. Lying to sitting on side of bed 01-Dependent D. Sit to stand 88-Not attempted due to medical condition or safety concerns E. Chair/ksw-oj-oycmw transfer 01-Dependent F. Toilet transfer 01-Dependent G. Car transfer 88-Not attempted due to medical condition or safety concerns I. Walk 10 feet 88-Not attempted due to medical condition or safety concerns J. Walk 50 feet with two turns 88-Not attempted due to medical condition or safety concerns K. Walk 150 feet 88-Not attempted due to medical condition or safety concerns L. Walking 10 feet on uneven surfaces 88-Not attempted due to medical condition or safety concerns M. 1 step (curb) 88-Not attempted due to medical condition or safety concerns N. 4 steps 88-Not attempted due to medical condition or safety concerns O. 12 steps 88-Not attempted due to medical condition or safety concerns P. Picking up object 88-Not attempted due to medical condition or safety concerns R. Wheel 50 feet with two turns 88-Not attempted due to medical condition or safety concerns S. Wheel 150 feet 88-Not attempted due to medical condition or safety concerns - Bladder and Bowel Bladder continence 4-Always incontinent Bowel continence 3-Always incontinent - Endurance Poor - Balance Poor - Safety Awareness Poor CURRENT FUNC. DEFICITS: Self-Care, Mobility, Endurance, Balance, and Safety Awareness CURRENT / PREVIOUS ASSISTIVE DEVICES: 3-in-1 [facility] Bed Raised Toilet Rolling Walker Shower Chair Tub Bench Wheelchair HISTORY OF FALLS. HAS THE PATIENT HAD TWO OR MORE FALLS IN THE PAST YEAR OR ANY FALL WITH INJURY IN T HE PAST YEAR?: No PRIOR SURGERY. DID THE PATIENT HAVE MAJOR SURGERY DURING THE 100 DAYS PRIOR TO ADMISSION?: No THERAPY NOTES FROM ACUTE CARE: Attached. SPECIAL NEEDS: - Safety Concerns Fall precautions needed due to Poor balance Skin breakdown precautions needed due to skin breakdown risk PRECAUTIONS: - Weight Bearing Precaution WBAT left LE - Fall Precaution Bed alarm TABS alarm Wheel chair alarm PATIENT NEEDS ACTIVE AND ONGOING THERAPEUTIC INTERVENTION OF MULTIPLE THERAPY DISCIPLINES, INCLUDING: - Occupational Therapy Cognitive Retraining. Visual Perceptual Training. - Dietary and Nutrition Adequate Nutrition. Nutritional Education. Nutritional Supplements. - Speech Therapy Cognitive Training. Expressive Language Skills. Memory Strategies. Receptive Language Skills. Speech Intelligibility Training. PATIENT NEEDS CLOSE MEDICAL SUPERVISION BY A REHABILITATION PHYSICIAN FOR: Coordination of Treatment Team Medical and Co-Morbidity Management Wound Care PATIENT REQUIRES 24X7 REHAB NURSING FOR MEDICAL AND FUNCTIONAL MGT. OF THE FOLLOWING DEFICITS: Disease Management Medication Management Patient/Family Education Providing Safe Environment Skin Integrity PATIENT REQUIRES INTENSIVE, COORDINATED INTERDISCIPLINARY APPROACH TO REHAB: Arranging Home Equipment/Services Discharge Planning Family Intervention/Training Reference Assistant/Case Management PATIENT REHAB POTENTIAL: Ephraim WALKER is able and expected to receive 3 hours of individualized therapy daily on at least 5 of e very 7 days Ephraim WALKER's prognosis for significant practical improvement within a reasonable period of time appea rs Good Expected level of measurable improvement will be of a practical value to Ephraim WALKER's functional capa city or adaptations to impairments Has a viable Discharge Plan Medically appropriate; condition is sufficiently stable to participate in intensive rehab program DISCHARGE PLAN: - Estimated Length of Stay (days) 17. - Consensus on plan Discharge plan has been discussed with primary caregiver. Patient/Family is in agreement with the gavino n. Primary caregiver is in agreement with the plan. - Patient/Family Goals Return home with assistance. - Planned Living Setting Upon Discharge Home, to live alone. RECOMMENDED CARE LEVEL: IRF RECOMMENDATION DETAILS: Recommended Admission to Comprehensive Rehabilitation Program to Increase Functional [place] SCREENER'S COMPLETENESS CONFIRMATION: - Screening Confirmation The patient data collection on this preadmission screening form is finished PHYSICIANS REVIEW AND ADMISSION DETERMINATION Admit - Based on my review of the Pre-Admission Screening results, in my medical judgment and experie nce, I concur with the findings and recommend admission to [facility], as this patient requires an IRF level of care. SIGNATURE PANEL: Clinical Liaison - [electronically] signed by Karlie Hameed on 02/15/2019 at 15:04 ([facility] WMS CONSULTANT) Clinical Liaison - [electronically] signed by Barb Romero on 02/15/2019 at 15:27 ([facility] WMS CONSULTANT) Physician Reviewer - [electronically] signed by Dr. Sawyer Rios M.D. on 02/15/2019 at 15:45 (ORACLE WMS CONSULTANT )
--- OUTSIDE RECORDS SUMMARY | 2019-02-15 23:36 | XMS REPORT ---
:1955 [facility] Junior Torres [address] [place] [address] Care Team Providers Name Role Phone TALAT SERNA Unavailable Unavailable Problems This patient has no known problems. Allergies, Adverse Reactions, Alerts This patient has no known allergies or adverse reactions. Medications This patient has no known medications. Results Test Description Test Time Test Comments Text Results Atomic Results Result Comments POCT-GLUCOSE METER 2019-02-15 17:01:00 Test Item Value Reference Range Comments POC-GLUCOSE METER (BEAKER) 125 mg/dL 70-110 : TESTED AT [address] (test kvsh=4422) [place], [id number]: Market Risk Specialist/Manager Medicare IO=[id number] for AKINSONU, JETHRO POCT-GLUCOSE [id number] 08:41:00 Test Item Value Reference Range Comments POC-GLUCOSE METER (BEAKER) 98 mg/dL 70-110 : TESTED AT [address] (test bvmr=7254) [facility], [id number]: Market Risk Specialist/Manager Medicare VA=[id number] for AKINSONU, JETHRO [id number] 06:23:00 Test Item Value Reference Range Comments MAGNESIUM (BEAKER) (test yiat=070) 2.1 mg/dL 1.6-2.6 BASIC METABOLIC [id number] 06:23:00 Test Item Value Reference Range Comments SODIUM (BEAKER) (test 138 meq/L 136-145 xbwk=360) POTASSIUM (BEAKER) (test 4.0 meq/L 3.5-5.1 lkva=718) CHLORIDE (BEAKER) (test 106 meq/L 98-107 rxko=401) CO2 (BEAKER) (test 26 meq/L 22-29 xqmv=119) BLOOD UREA NITROGEN 14 mg/dL 7-21 (BEAKER) (test uxet=095) CREATININE (BEAKER) (test 0.47 mg/dL 0.57-1.25 zajv=241) GLUCOSE RANDOM (BEAKER) 116 mg/dL 70-105 (test ahiq=055) CALCIUM (BEAKER) (test 8.3 mg/dL 8.4-10.2 gjob=238) EGFR (BEAKER) (test 133 mL/min/1.73 sq m ESTIMATED GFR IS NOT unue=1048) ACCURATE CREATININE CLEARANCE IN PREDICTING GLOMERULAR FILTRATION RATE. ESTIMATED GFR IS NOT APPLICABLE FOR DIALYSIS PATIENTS. CALCIUM, [id number] 05:55:00 Test Item Value Reference Range Comments CALCIUM IONIZED (BEAKER) (test vzzi=567) 1.07 mmol/L 1.12-1.27 PH, BLOOD (BEAKER) (test yiec=4434) 7.42 CBC (HEMOGRAM ONLY)2019-02-15 05:53:00 Test Item Value Reference Range Comments WHITE BLOOD CELL COUNT (BEAKER) (test ftbr=240) 11.0 K/ L 3.5-10.5 RED BLOOD CELL COUNT (BEAKER) (test dwda=925) 3.14 M/ L 3.93-5.22 HEMOGLOBIN (BEAKER) (test vsjq=777) 9.9 GM/DL 11.2-15.7 HEMATOCRIT (BEAKER) (test bmpv=337) 30.6 % 34.1-44.9 MEAN CORPUSCULAR VOLUME (BEAKER) (test hfas=575) 97.5 fL 79.4-94.8 MEAN CORPUSCULAR HEMOGLOBIN (BEAKER) (test 31.5 pg 25.6-32.2 lhwi=314) MEAN CORPUSCULAR HEMOGLOBIN CONC (BEAKER) (test 32.4 GM/DL 32.2-35.5 xchi=220) RED CELL DISTRIBUTION WIDTH (BEAKER) (test 14.8 % 11.7-14.4 vedb=410) PLATELET COUNT (BEAKER) (test hyic=357) 219 K/CU MM 150-450 MEAN PLATELET VOLUME (BEAKER) (test zugs=524) 10.9 fL 9.4-12.3 NUCLEATED RED BLOOD CELLS (BEAKER) (test 0 /100 WBC 0-0 hgtj=228) POCT-GLUCOSE [id number] 21:12:00 Test Item Value Reference Range Comments POC-GLUCOSE METER (BEAKER) 131 mg/dL 70-110 : TESTED AT [address] (test laxs=2604) [facility], [id number]: Market Risk Specialist/Manager Medicare WR=[id number] for Sue Wade POCT-GLUCOSE [id number] 17:21:00 Test Item Value Reference Range Comments POC-GLUCOSE METER (BEAKER) 130 mg/dL 70-110 : TESTED AT [address] (test wcun=9411) [facility], [id number]: Market Risk Specialist/Manager Medicare MD=[id number] for Hannah Navarrete POCT-GLUCOSE [id number] 11:56:00 Test Item Value Reference Range Comments POC-GLUCOSE METER (BEAKER) 105 mg/dL 70-110 : TESTED AT [address] (test hrme=7297) [facility], [address]: Market Risk Specialist/Manager Medicare OY=[id number] for Hannah Navarrete POCT-GLUCOSE [id number] 08:11:00 Test Item Value Reference Range Comments POC-GLUCOSE METER (BEAKER) 221 mg/dL 70-110 : TESTED AT [address] (test gapb=1826) [facility], [id number]: Market Risk Specialist/Manager Medicare IN=[id number] for Hannah Navarrete [id number] 04:39:00 Test Item Value Reference Range Comments MAGNESIUM (BEAKER) (test dipt=007) 1.9 mg/dL 1.6-2.6 BASIC METABOLIC [id number] 04:39:00 Test Item Value Reference Range Comments SODIUM (BEAKER) (test 138 meq/L 136-145 vxts=416) POTASSIUM (BEAKER) (test 3.8 meq/L 3.5-5.1 fjff=827) CHLORIDE (BEAKER) (test 106 meq/L 98-107 izjq=356) CO2 (BEAKER) (test 26 meq/L 22-29 ttbl=241) BLOOD UREA NITROGEN 20 mg/dL 7-21 (BEAKER) (test cdsu=049) CREATININE (BEAKER) (test 0.46 mg/dL 0.57-1.25 xgtu=331) GLUCOSE RANDOM (BEAKER) 120 mg/dL 70-105 (test lyqm=231) CALCIUM (BEAKER) (test 8.0 mg/dL 8.4-10.2 tgvh=967) EGFR (BEAKER) (test 137 mL/min/1.73 sq m ESTIMATED GFR IS NOT vscv=9258) ACCURATE CREATININE CLEARANCE IN PREDICTING GLOMERULAR FILTRATION RATE. ESTIMATED GFR IS NOT APPLICABLE FOR DIALYSIS PATIENTS. CBC (HEMOGRAM ONLY)2019-02-14 04:13:00 Test Item Value Reference Range Comments WHITE BLOOD CELL COUNT (BEAKER) (test ktpt=441) 12.9 K/ L 3.5-10.5 RED BLOOD CELL COUNT (BEAKER) (test appj=978) 2.91 M/ L 3.93-5.22 HEMOGLOBIN (BEAKER) (test qrps=852) 9.1 GM/DL 11.2-15.7 HEMATOCRIT (BEAKER) (test mscu=982) 28.4 % 34.1-44.9 MEAN CORPUSCULAR VOLUME (BEAKER) (test tklz=866) 97.6 fL 79.4-94.8 MEAN CORPUSCULAR HEMOGLOBIN (BEAKER) (test 31.3 pg 25.6-32.2 cjve=387) MEAN CORPUSCULAR HEMOGLOBIN CONC (BEAKER) (test 32.0 GM/DL 32.2-35.5 habz=691) RED CELL DISTRIBUTION WIDTH (BEAKER) (test 15.0 % 11.7-14.4 vmuu=373) PLATELET COUNT (BEAKER) (test rgdm=903) 214 K/CU MM 150-450 MEAN PLATELET VOLUME (BEAKER) (test tuxc=743) 11.3 fL 9.4-12.3 NUCLEATED RED BLOOD CELLS (BEAKER) (test 0 /100 WBC 0-0 lrzp=012) CALCIUM, [id number] 04:00:00 Test Item Value Reference Range Comments CALCIUM IONIZED (BEAKER) (test bxjz=904) 1.06 mmol/L 1.12-1.27 PH, BLOOD (BEAKER) (test nane=9121) 7.44 POCT-GLUCOSE [id number] 21:25:00 Test Item Value Reference Range Comments POC-GLUCOSE METER (BEAKER) 131 mg/dL 70-110 : TESTED AT [facility] [address] [facility] (test wzti=0716) [facility], [id number]: Market Risk Specialist/Manager Medicare AK=[id number] for Sue Wade POCT-GLUCOSE [id number] 12:20:00 Test Item Value Reference Range Comments POC-GLUCOSE METER (BEAKER) 102 mg/dL 70-110 : TESTED AT [facility] [address] (test wdye=7509) [facility], [id number]: Market Risk Specialist/Manager Medicare AF=[id number] for Hannah Navarrete BASIC METABOLIC [id number] 08:41:00 Test Item Value Reference Range Comments SODIUM (BEAKER) (test 137 meq/L 136-145 oyfo=518) POTASSIUM (BEAKER) (test 3.7 meq/L 3.5-5.1 uwop=777) CHLORIDE (BEAKER) (test 107 meq/L 98-107 cmlk=946) CO2 (BEAKER) (test 25 meq/L 22-29 sfft=444) BLOOD UREA NITROGEN 21 mg/dL 7-21 (BEAKER) (test bqhd=626) CREATININE (BEAKER) (test 0.49 mg/dL 0.57-1.25 okfv=403) GLUCOSE RANDOM (BEAKER) 129 mg/dL 70-105 (test unph=220) CALCIUM (BEAKER) (test 7.9 mg/dL 8.4-10.2 wwcr=473) EGFR (BEAKER) (test 127 mL/min/1.73 sq m ESTIMATED GFR IS NOT koww=3884) ACCURATE CREATININE CLEARANCE IN PREDICTING GLOMERULAR FILTRATION RATE. ESTIMATED GFR IS NOT APPLICABLE FOR DIALYSIS PATIENTS. [id number] 08:18:00 Test Item Value Reference Range Comments MAGNESIUM (BEAKER) (test iqii=739) 1.9 mg/dL 1.6-2.6 CALCIUM, [id number] 06:46:00 Test Item Value Reference Range Comments CALCIUM IONIZED (BEAKER) (test imbx=438) 1.09 mmol/L 1.12-1.27 PH, BLOOD (BEAKER) (test mehq=0716) 7.41 CBC (HEMOGRAM ONLY)2019-02-13 06:27:00 Test Item Value Reference Range Comments WHITE BLOOD CELL COUNT (BEAKER) (test fwhx=698) 17.3 K/ L 3.5-10.5 RED BLOOD CELL COUNT (BEAKER) (test qnlx=797) 3.30 M/ L 3.93-5.22 HEMOGLOBIN (BEAKER) (test uhzz=493) 10.2 GM/DL 11.2-15.7 HEMATOCRIT (BEAKER) (test vzxk=455) 32.0 % 34.1-44.9 MEAN CORPUSCULAR VOLUME (BEAKER) (test clvl=130) 97.0 fL 79.4-94.8 MEAN CORPUSCULAR HEMOGLOBIN (BEAKER) (test 30.9 pg 25.6-32.2 lqvt=756) MEAN CORPUSCULAR HEMOGLOBIN CONC (BEAKER) (test 31.9 GM/DL 32.2-35.5 vyqg=638) RED CELL DISTRIBUTION WIDTH (BEAKER) (test 15.0 % 11.7-14.4 zwmw=382) PLATELET COUNT (BEAKER) (test vkog=765) 266 K/CU MM 150-450 MEAN PLATELET VOLUME (BEAKER) (test jcrr=297) 11.0 fL 9.4-12.3 NUCLEATED RED BLOOD CELLS (BEAKER) (test 0 /100 WBC 0-0 qfne=560) POCT-GLUCOSE [id number] 21:15:00 Test Item Value Reference Range Comments POC-GLUCOSE METER (BEAKER) 189 mg/dL 70-110 : TESTED AT [address] (test yelm=5565) [facility], [id number]: Market Risk Specialist/Manager Medicare PA=[id number] for Yesy Wadekell POCT-GLUCOSE [id number] 17:30:00 Test Item Value Reference Range Comments POC-GLUCOSE METER (BEAKER) 131 mg/dL 70-110 : TESTED AT [address] (test gxck=8295) [facility], [address]: Market Risk Specialist/Manager Medicare PZ=[id number] for RICHTER, YVES POCT-GLUCOSE [id number] 11:33:00 Test Item Value Reference Range Comments POC-GLUCOSE METER (BEAKER) 149 mg/dL 70-110 : TESTED AT [address] (test uvnb=2097) [facility], [id number]: Market Risk Specialist/Manager Medicare YL=[id number] for RICHTER, YVES POCT-GLUCOSE [id number] 09:11:00 Test Item Value Reference Range Comments POC-GLUCOSE METER (BEAKER) 91 mg/dL 70-110 : TESTED AT [address] (test aqtk=8739) [facility], [address]: Market Risk Specialist/Manager Medicare FQ=[id number] for YVES RICHTER BASIC METABOLIC [id number] 06:32:00 Test Item Value Reference Range Comments SODIUM (BEAKER) (test 136 meq/L 136-145 orrp=131) POTASSIUM (BEAKER) (test 3.7 meq/L 3.5-5.1 olng=109) CHLORIDE (BEAKER) (test 106 meq/L 98-107 svfb=424) CO2 (BEAKER) (test 24 meq/L 22-29 snbu=333) BLOOD UREA NITROGEN 19 mg/dL 7-21 (BEAKER) (test ikoo=685) CREATININE (BEAKER) (test 0.44 mg/dL 0.57-1.25 ircx=739) GLUCOSE RANDOM (BEAKER) 125 mg/dL 70-105 (test bcbs=467) CALCIUM (BEAKER) (test 7.5 mg/dL 8.4-10.2 ympg=607) EGFR (BEAKER) (test 144 mL/min/1.73 sq m ESTIMATED GFR IS NOT tbxq=1513) ACCURATE CREATININE CLEARANCE IN PREDICTING GLOMERULAR FILTRATION RATE. ESTIMATED GFR IS NOT APPLICABLE FOR DIALYSIS PATIENTS. [id number] 06:21:00 Test Item Value Reference Range Comments MAGNESIUM (BEAKER) (test wtzf=554) 1.9 mg/dL 1.6-2.6 CBC (HEMOGRAM ONLY)2019-02-12 05:39:00 Test Item Value Reference Range Comments WHITE BLOOD CELL COUNT (BEAKER) (test trsm=499) 19.2 K/ L 3.5-10.5 RED BLOOD CELL COUNT (BEAKER) (test rekn=298) 2.92 M/ L 3.93-5.22 HEMOGLOBIN (BEAKER) (test adnf=384) 9.3 GM/DL 11.2-15.7 HEMATOCRIT (BEAKER) (test bsva=710) 28.1 % 34.1-44.9 MEAN CORPUSCULAR VOLUME (BEAKER) (test ufce=017) 96.2 fL 79.4-94.8 MEAN CORPUSCULAR HEMOGLOBIN (BEAKER) (test 31.8 pg 25.6-32.2 dysf=090) MEAN CORPUSCULAR HEMOGLOBIN CONC (BEAKER) (test 33.1 GM/DL 32.2-35.5 qyml=248) RED CELL DISTRIBUTION WIDTH (BEAKER) (test 14.5 % 11.7-14.4 olvt=996) PLATELET COUNT (BEAKER) (test pkxq=754) 238 K/CU MM 150-450 MEAN PLATELET VOLUME (BEAKER) (test pxro=421) 11.4 fL 9.4-12.3 NUCLEATED RED BLOOD CELLS (BEAKER) (test 0 /100 WBC 0-0 exir=132) CALCIUM, [id number] 04:52:00 Test Item Value Reference Range Comments CALCIUM IONIZED (BEAKER) (test ogvm=795) 1.06 mmol/L 1.12-1.27 PH, BLOOD (BEAKER) (test cyvc=0545) 7.43 POCT-GLUCOSE [id number] 21:21:00 Test Item Value Reference Range Comments POC-GLUCOSE METER (BEAKER) 159 mg/dL 70-110 : TESTED AT [address] (test wkjk=0136) [facility], [id number]: Market Risk Specialist/Manager Medicare MB=[id number] for MELANY MONTANO POCT-GLUCOSE [id number] 17:28:00 Test Item Value Reference Range Comments POC-GLUCOSE METER (BEAKER) 130 mg/dL 70-110 : Notified RN/MD: TESTED AT (test zrnj=5329) [address], [address]: Market Risk Specialist/Manager Medicare ML=[id number] for IZZY RICHTERIA POCT-GLUCOSE [id number] 12:21:00 Test Item Value Reference Range Comments POC-GLUCOSE METER (BEAKER) 111 mg/dL 70-110 : TESTED AT [address] (test mjoa=3387) [facility], [address]: Market Risk Specialist/Manager Medicare SS=[id number] for IZZY RICHTERIA BLOOD [id number] 11:00:00 Test Item Value Reference Range Comments CULTURE (BEAKER) (test ruxf=5650) No growth in 5 days BLOOD [id number] 11:00:00 Test Item Value Reference Range Comments CULTURE (BEAKER) (test aulc=7337) No growth in 5 days POCT-GLUCOSE [id number] 07:53:00 Test Item Value Reference Range Comments POC-GLUCOSE METER (BEAKER) 99 mg/dL 70-110 : TESTED AT [address] (test noyq=7448) [facility], [address]: Market Risk Specialist/Manager Medicare RZ=[id number] for YVES RICHTER [id number] 06:55:00 Test Item Value Reference Range Comments MAGNESIUM (BEAKER) (test qubg=946) 1.8 mg/dL 1.6-2.6 BASIC METABOLIC [id number] 06:55:00 Test Item Value Reference Range Comments SODIUM (BEAKER) (test 135 meq/L 136-145 jibg=911) POTASSIUM (BEAKER) (test 3.7 meq/L 3.5-5.1 jslx=863) CHLORIDE (BEAKER) (test 104 meq/L 98-107 kavw=224) CO2 (BEAKER) (test 25 meq/L 22-29 bfsk=617) BLOOD UREA NITROGEN 22 mg/dL 7-21 (BEAKER) (test gzzz=298) CREATININE (BEAKER) (test 0.47 mg/dL 0.57-1.25 lnnz=703) GLUCOSE RANDOM (BEAKER) 111 mg/dL 70-105 (test drkx=178) CALCIUM (BEAKER) (test 7.5 mg/dL 8.4-10.2 sgzp=242) EGFR (BEAKER) (test 133 mL/min/1.73 sq m ESTIMATED GFR IS NOT ffly=6711) ACCURATE CREATININE CLEARANCE IN PREDICTING GLOMERULAR FILTRATION RATE. ESTIMATED GFR IS NOT APPLICABLE FOR DIALYSIS PATIENTS. CALCIUM, [id number] 06:34:00 Test Item Value Reference Range Comments CALCIUM IONIZED (BEAKER) (test ncou=214) 1.03 mmol/L 1.12-1.27 PH, BLOOD (BEAKER) (test lged=4621) 7.46 CBC (HEMOGRAM ONLY)2019-02-11 06:24:00 Test Item Value Reference Range Comments WHITE BLOOD CELL COUNT (BEAKER) (test znud=708) 23.5 K/ L 3.5-10.5 RED BLOOD CELL COUNT (BEAKER) (test jgcn=704) 3.16 M/ L 3.93-5.22 HEMOGLOBIN (BEAKER) (test rdvb=922) 9.8 GM/DL 11.2-15.7 HEMATOCRIT (BEAKER) (test vead=721) 29.9 % 34.1-44.9 MEAN CORPUSCULAR VOLUME (BEAKER) (test emze=278) 94.6 fL 79.4-94.8 MEAN CORPUSCULAR HEMOGLOBIN (BEAKER) (test 31.0 pg 25.6-32.2 infm=259) MEAN CORPUSCULAR HEMOGLOBIN CONC (BEAKER) (test 32.8 GM/DL 32.2-35.5 fmfl=055) RED CELL DISTRIBUTION WIDTH (BEAKER) (test 14.5 % 11.7-14.4 lllu=268) PLATELET COUNT (BEAKER) (test cwys=133) 243 K/CU MM 150-450 MEAN PLATELET VOLUME (BEAKER) (test spzn=112) 11.1 fL 9.4-12.3 NUCLEATED RED BLOOD CELLS (BEAKER) (test 0 /100 WBC 0-0 okjj=319) POCT-GLUCOSE [id number] 23:13:00 Test Item Value Reference Range Comments POC-GLUCOSE METER (BEAKER) 200 mg/dL 70-110 : TESTED AT [address] (test irxt=8932) [facility], [address]: Market Risk Specialist/Manager Medicare GB=[id number] for JEFERSON ÁLVAREZ MR, SPINE, CERVICAL, [id number] 20:53:00Anesthesia:->NoneDeos the patient have an implanted electronic device?->NoFINAL REPORT MR, SPINE, CERVICAL, WITH \\T\\ WITHOUT CONTRAST INDICATION: Extradural or subdural abscess TECHNIQUE: Multiplanar, multisequence MRI of the cervical spine without intravenous contrast. COMPARISON: None FINDINGS: Alignment: Gentle reversal of cervical lordosis. Vertebral bodies: Vertebral body heights are maintained. No edema. No aggressive marrow signal. Spinal canal: Disc osteophyte complexes indent the ventral thecal sac and mildly flattening the cord at C4-5 and C5-6. No high-grade canal or foraminal stenosis. No evidence of extra-axial collection. Spinal cord: Craniocervical junction is normal. No syrinx. No cord signal abnormality. Soft tissues: Paraspinal soft tissues are unremarkable. IMPRESSION:Minor degenerative changes. Otherwise unremarkable MRI of the cervical spine. Signed: Nusrat Castillo MDReport Verified Date/Time: 02/10/2019 20:53:35 MR, MRA, BRAIN, WITHOUT [id number] 20:50:00Reason for exam:->Ischemic Stroke EvaluationFINAL REPORT MR, BRAIN, WITHOUT CONTRAST, MR, MRA, BRAIN, WITHOUT CONTRAST, MR , MRA, NECK, WITHOUT IV CONTRAST INDICATION: Brain mass or lesion, follow- upIschemic Stroke Evaluation TECHNIQUE: Multiplanar, multisequence MR imaging of the brain without intravenous contrast.MRA of the head utilizing 3-D time-of- flight technique, with 3-D reconstructions.MRA of the neck utilizing 2-D and 3- D qyvq-om-wqhmub technique, with 3-D reconstructions. COMPARISON: MRI brain , MRV head 02/02/2019 FINDINGS: MRI Brain:Intracranial: Again noted are postoperative findings of right frontal craniotomy for resection of multifocal and lateral parafalcine meningiomas. Pneumocephalus has decreased. There are resolving blood products within the resection bed and underlying the craniotomy site. Trace bifrontal convexity extra-axial collections. Evolving right JULIO territory infarct. Overallthe degree of parenchymal edema related to infarct and previously resected tumor is decreasing compared to prior exam. Residual mild leftward midline shift, approximately 7 mm now compared to 10 mm on the prior exam. No new site of hemorrhage or new infarct. No hydrocephalus. Chronic microvascular changes and remote punctate microhemorrhages again noted. Sinuses : No evidence of sinusitis. Small rightmastoid effusion. Orbits: Globes are intact. Calvarium \\T\\ scalp: Postoperative changes. Resolving scalp edema overlying the craniotomy site. MRA Head:There is no evidence of intracranial aneurysm, focal stenosis, or major branch vessel occlusion. The bilateral ACAs are displaced leftward by midline shift resulting from right frontal parenchymal edema. MRA Neck:The carotid arteries in the neck are patent including their bifurcations. There is antegrade flow in the vertebral arteries in the neck.IMPRESSION:1.Evolving postoperative changes of bilateral parafalcine meningioma resection, and evolving right JULIO territory infarct. Decreasing right frontal lobe edema and resulting midline shift.2.Unremarkable MRA of the head and neck. Signed: Nusrat Castilloort Verified Date/Time: 02/10/2019 20:50:20 MR, MRA, NECK, WITHOUT IV [id number] 20:50:00Reason for exam:->Ischemic Stroke EvaluationFINAL REPORT MR, BRAIN, WITHOUT CONTRAST, MR, MRA, BRAIN, WITHOUT CONTRAST, MR, MRA, NECK, WITHOUT IV CONTRAST INDICATION: Brain mass or lesion, follow-upIschemic Stroke Evaluation TECHNIQUE: Multiplanar, multisequence MR imaging of the brain without intravenous contrast.MRA of the head utilizing 3-D apwn-qx-ydxilr technique, with 3-D reconstructions.MRA of the neck utilizing 2-D and 3-D time- of-flight technique, with 3-D reconstructions. COMPARISON: MRI brain 02/01/2019 , MRV head 02/02/2019 FINDINGS: MRI Brain:Intracranial: Again noted are postoperative findings of right frontal craniotomy for resection of multifocal and lateral parafalcine meningiomas. Pneumocephalus has decreased. There are resolving blood products within the resection bed and underlying the craniotomy site. Trace bifrontal convexity extra-axial collections. Evolving right JULIO territory infarct. Overallthe degree of parenchymal edema related to infarct and previously resected tumor is decreasing compared to prior exam. Residual mild leftward midline shift, approximately 7 mm now compared to 10 mm on the prior exam. No new site of hemorrhage or new infarct. No hydrocephalus. Chronic microvascular changes and remote punctate microhemorrhages again noted. Sinuses : No evidence of sinusitis. Small rightmastoid effusion. Orbits: Globes are intact. Calvarium \\T\\ scalp: Postoperative changes. Resolving scalp edema overlying the craniotomy site. MRA Head:There is no evidence of intracranial aneurysm, focal stenosis, or major branch vessel occlusion. The bilateral ACAs are displaced leftward by midline shift resulting from right frontal parenchymal edema. MRA Neck:The carotid arteries in the neck are patent including their bifurcations. There is antegrade flow in the vertebral arteries in the neck.IMPRESSION:1.Evolving postoperative changes of bilateral parafalcine meningioma resection, and evolving right JULIO territory infarct. Decreasing right frontal lobe edema and resulting midline shift.2.Unremarkable MRA of the head and neck. Signed: Nusrat Castillo MDReport Verified Date/Time: 02/10/2019 20:50:20 MR, BRAIN, WITHOUT [id number] 20:50:00Reason for exam :->Ischemic Stroke EvaluationFINAL REPORT MR, BRAIN, WITHOUT CONTRAST, MR, MRA, BRAIN, WITHOUT CONTRAST, MR, MRA, NECK, WITHOUT IV CONTRAST INDICATION: Brain mass or lesion, follow-upIschemic Stroke Evaluation TECHNIQUE: Multiplanar, multisequence MR imaging of the brain without intravenous contrast.MRA of the head utilizing 3-D eqmc-bf-rcjhke technique, with 3-D reconstructions.MRA of the neck utilizing 2-D and 3-D exus-pg-wlijha technique, with 3-D reconstructions. COMPARISON: MRI brain 02/01/2019, MRV head 02/02/2019 FINDINGS: MRI Brain:Intracranial: Again noted are postoperative findings of right frontal craniotomy for resection of multifocal and lateral parafalcine meningiomas. Pneumocephalus has decreased. There are resolving blood products within the resection bed and underlying the craniotomy site. Trace bifrontal convexity extra-axial collections. Evolving right JULIO territory infarct. Overallthe degree of parenchymal edema related to infarct and previously resected tumor is decreasing compared to prior exam. Residual mild leftward midline shift, approximately 7 mm now compared to 10 mm on the prior exam. No new site of hemorrhage or new infarct. No hydrocephalus. Chronic microvascular changes and remote punctate microhemorrhages again noted. Sinuses : No evidence of sinusitis. Small rightmastoid effusion. Orbits: Globes are intact. Calvarium \\T\\ scalp: Postoperative changes. Resolving scalp edema overlying the craniotomy site. MRA Head:There is no evidence of intracranial aneurysm, focal stenosis, or major branch vessel occlusion. The bilateral ACAs are displaced leftward by midline shift resulting from right frontal parenchymal edema. MRA Neck:The carotid arteries in the neck are patent including their bifurcations. There is antegrade flow in the vertebral arteries in the neck.IMPRESSION:1.Evolving postoperative changes of bilateral parafalcine meningioma resection, and evolving right JULIO territory infarct. Decreasing right frontal lobe edema and resulting midline shift.2.Unremarkable MRA of the head and neck. Signed: Nusrat Castillo Verified Date/Time: 02/10/2019 20:50:20 POCT-GLUCOSE [id number] 08:09:00 Test Item Value Reference Range Comments POC-GLUCOSE METER (BEAKER) 123 mg/dL 70-110 : TESTED AT [facility] [address] (test hcun=4910) [facility], [id number]: Market Risk Specialist/Manager Medicare GY=[id number] for MARQUEZ HAYDEN CALCIUM, [id number] 06:38:00 Test Item Value Reference Range Comments CALCIUM IONIZED (BEAKER) (test mcdx=451) 1.01 mmol/L 1.12-1.27 PH, BLOOD (BEAKER) (test qtnu=7237) 7.53 [id number] 06:37:00 Test Item Value Reference Range Comments MAGNESIUM (BEAKER) (test xdqn=680) 1.9 mg/dL 1.6-2.6 BASIC METABOLIC [id number] 06:37:00 Test Item Value Reference Range Comments SODIUM (BEAKER) (test 133 meq/L 136-145 kdlj=980) POTASSIUM (BEAKER) (test 4.1 meq/L 3.5-5.1 hqta=378) CHLORIDE (BEAKER) (test 105 meq/L 98-107 lnnf=679) CO2 (BEAKER) (test 22 meq/L 22-29 lkpz=860) BLOOD UREA NITROGEN 22 mg/dL 7-21 (BEAKER) (test adss=883) CREATININE (BEAKER) (test 0.47 mg/dL 0.57-1.25 nrxj=103) GLUCOSE RANDOM (BEAKER) 144 mg/dL 70-105 (test uchp=192) CALCIUM (BEAKER) (test 7.6 mg/dL 8.4-10.2 ukbr=609) EGFR (BEAKER) (test 133 mL/min/1.73 sq m ESTIMATED GFR IS NOT uaud=1132) ACCURATE CREATININE CLEARANCE IN PREDICTING GLOMERULAR FILTRATION RATE. ESTIMATED GFR IS NOT APPLICABLE FOR DIALYSIS PATIENTS. CBC (HEMOGRAM ONLY)2019-02-10 05:45:00 Test Item Value Reference Range Comments WHITE BLOOD CELL COUNT (BEAKER) (test howi=016) 25.2 K/ L 3.5-10.5 RED BLOOD CELL COUNT (BEAKER) (test mlmd=844) 3.27 M/ L 3.93-5.22 HEMOGLOBIN (BEAKER) (test lsyq=317) 10.2 GM/DL 11.2-15.7 HEMATOCRIT (BEAKER) (test uejj=568) 30.9 % 34.1-44.9 MEAN CORPUSCULAR VOLUME (BEAKER) (test jzwk=519) 94.5 fL 79.4-94.8 MEAN CORPUSCULAR HEMOGLOBIN (BEAKER) (test 31.2 pg 25.6-32.2 cxcf=971) MEAN CORPUSCULAR HEMOGLOBIN CONC (BEAKER) (test 33.0 GM/DL 32.2-35.5 levy=160) RED CELL DISTRIBUTION WIDTH (BEAKER) (test 14.2 % 11.7-14.4 ygfs=296) PLATELET COUNT (BEAKER) (test nsnl=612) 233 K/CU MM 150-450 MEAN PLATELET VOLUME (BEAKER) (test krxv=232) 11.5 fL 9.4-12.3 NUCLEATED RED BLOOD CELLS (BEAKER) (test 0 /100 WBC 0-0 gawt=192) POCT-GLUCOSE [id number] 21:31:00 Test Item Value Reference Range Comments POC-GLUCOSE METER (BEAKER) 183 mg/dL 70-110 : TESTED AT [address] (test yzwk=1928) [facility], [id number]: Market Risk Specialist/Manager Medicare IO=[id number] for Sue Wade POCT-GLUCOSE [id number] 17:36:00 Test Item Value Reference Range Comments POC-GLUCOSE METER (BEAKER) 153 mg/dL 70-110 : TESTED AT [address] (test cmke=0451) [facility], [id number]: Market Risk Specialist/Manager Medicare HW=[id number] for CISCO, WILLAM POCT-GLUCOSE [id number] 13:27:00 Test Item Value Reference Range Comments POC-GLUCOSE METER (BEAKER) 155 mg/dL 70-110 : TESTED AT [address] (test ctcb=0429) [facility], [id number]: Market Risk Specialist/Manager Medicare DL=[id number] for GASKEY, WILLAM POCT-GLUCOSE [id number] 11:27:00 Test Item Value Reference Range Comments POC-GLUCOSE METER (BEAKER) 152 mg/dL 70-110 : TESTED AT [facility] [address] [facility] (test xnlm=3229) [facility], [id number]: Market Risk Specialist/Manager Medicare SC=[id number] for ALEXANDRA ANAND POCT-GLUCOSE [id number] 07:39:00 Test Item Value Reference Range Comments POC-GLUCOSE METER (BEAKER) 140 mg/dL 70-110 : TESTED AT [facility] [address] [facility] (test tdga=3619) [facility], [id number]: Market Risk Specialist/Manager Medicare QY=[id number] for ALEXANDRA ANAND CALCIUM, [id number] 05:27:00 Test Item Value Reference Range Comments CALCIUM IONIZED (BEAKER) (test tjot=897) 1.03 mmol/L 1.12-1.27 PH, BLOOD (BEAKER) (test yfiz=1271) 7.50 BASIC METABOLIC [id number] 04:58:00 Test Item Value Reference Range Comments SODIUM (BEAKER) (test 133 meq/L 136-145 hvps=227) POTASSIUM (BEAKER) (test 4.1 meq/L 3.5-5.1 mbul=310) CHLORIDE (BEAKER) (test 106 meq/L 98-107 tkiv=054) CO2 (BEAKER) (test 23 meq/L 22-29 hlps=058) BLOOD UREA NITROGEN 25 mg/dL 7-21 (BEAKER) (test yiyf=242) CREATININE (BEAKER) (test 0.49 mg/dL 0.57-1.25 skep=361) GLUCOSE RANDOM (BEAKER) 164 mg/dL 70-105 (test hxwl=867) CALCIUM (BEAKER) (test 7.3 mg/dL 8.4-10.2 xjsu=044) EGFR (BEAKER) (test 127 mL/min/1.73 sq m ESTIMATED GFR IS NOT lnld=8459) ACCURATE CREATININE CLEARANCE IN PREDICTING GLOMERULAR FILTRATION RATE. ESTIMATED GFR IS NOT APPLICABLE FOR DIALYSIS PATIENTS. [id number] 04:53:00 Test Item Value Reference Range Comments MAGNESIUM (BEAKER) (test csze=560) 1.9 mg/dL 1.6-2.6 CBC (HEMOGRAM ONLY)2019-02-09 04:14:00 Test Item Value Reference Range Comments WHITE BLOOD CELL COUNT (BEAKER) (test zyrx=030) 25.9 K/ L 3.5-10.5 RED BLOOD CELL COUNT (BEAKER) (test yueq=391) 2.85 M/ L 3.93-5.22 HEMOGLOBIN (BEAKER) (test khrf=292) 8.9 GM/DL 11.2-15.7 HEMATOCRIT (BEAKER) (test jvvf=537) 26.7 % 34.1-44.9 MEAN CORPUSCULAR VOLUME (BEAKER) (test hide=858) 93.7 fL 79.4-94.8 MEAN CORPUSCULAR HEMOGLOBIN (BEAKER) (test 31.2 pg 25.6-32.2 pynk=891) MEAN CORPUSCULAR HEMOGLOBIN CONC (BEAKER) (test 33.3 GM/DL 32.2-35.5 tkms=992) RED CELL DISTRIBUTION WIDTH (BEAKER) (test 13.9 % 11.7-14.4 cguf=656) PLATELET COUNT (BEAKER) (test ogez=083) 214 K/CU MM 150-450 MEAN PLATELET VOLUME (BEAKER) (test fbvt=135) 11.6 fL 9.4-12.3 NUCLEATED RED BLOOD CELLS (BEAKER) (test 0 /100 WBC 0-0 cmsw=320) HEPATIC FUNCTION [id number] 19:08:00 Test Item Value Reference Range Comments TOTAL PROTEIN (BEAKER) (test odfk=155) 5.8 gm/dL 6.0-8.3 ALBUMIN (BEAKER) (test ugnm=6248) 3.2 g/dL 3.5-5.0 BILIRUBIN TOTAL (BEAKER) (test zxmx=384) 0.3 mg/dL 0.2-1.2 BILIRUBIN DIRECT (BEAKER) (test njqy=358) 0.2 mg/dL 0.1-0.5 ALKALINE PHOSPHATASE (BEAKER) (test ytem=144) 50 U/L 40-150 AST (SGOT) (BEAKER) (test gyrw=327) 39 U/L 5-34 ALT (SGPT) (BEAKER) (test cytf=492) 97 U/L 6-55 [id number] 17:55:00 Test Item Value Reference Range Comments SODIUM (BEAKER) (test wcbc=192) 135 meq/L 136-145 POCT-GLUCOSE [id number] 17:35:00 Test Item Value Reference Range Comments POC-GLUCOSE METER (BEAKER) 143 mg/dL 70-110 : TESTED AT [address] (test qmmn=2742) [facility], [id number]: Market Risk Specialist/Manager Medicare QK=[id number] for TRIPP BALLESTEROS POCT-GLUCOSE [id number] 15:02:00 Test Item Value Reference Range Comments POC-GLUCOSE METER (BEAKER) 162 mg/dL 70-110 : TESTED AT [address] (test bkwt=3464) [facility], [address]: Market Risk Specialist/Manager Medicare FL=[id number] for Hannah Navarrete POCT-GLUCOSE [id number] 14:40:00 Test Item Value Reference Range Comments POC-GLUCOSE METER (BEAKER) 188 mg/dL 70-110 : TESTED AT [address] (test yxfx=4953) [facility], [id number]: Market Risk Specialist/Manager Medicare XK=[id number] for TRIPP BALLESTEROS POCT-GLUCOSE [id number] 14:30:00 Test Item Value Reference Range Comments POC-GLUCOSE METER (BEAKER) 138 mg/dL 70-110 : TESTED AT [address] (test xhzl=7068) [facility], [id number]: Market Risk Specialist/Manager Medicare DJ=[id number] for Yesy Wadea POCT-GLUCOSE [id number] 14:26:00 Test Item Value Reference Range Comments POC-GLUCOSE METER (BEAKER) 204 mg/dL 70-110 : TESTED AT [address] (test aqvd=8964) [facility], [id number]: Market Risk Specialist/Manager Medicare TB=[id number] for Yesy Wadea VANCOMYCIN LEVEL, [id number] 11:03:00 Test Item Value Reference Range Comments VANCOMYCIN TROUGH (BEAKER) (test hikb=244) 4.6 ug/mL 10.0-20.0 30 minutes prior to next [id number] 10:58:00 Test Item Value Reference Range Comments SODIUM (BEAKER) (test xjgz=575) 131 meq/L 136-145 BASIC METABOLIC [id number] 06:01:00 Test Item Value Reference Range Comments SODIUM (BEAKER) (test 131 meq/L 136-145 rpht=022) POTASSIUM (BEAKER) (test 4.2 meq/L 3.5-5.1 rzya=004) CHLORIDE (BEAKER) (test 101 meq/L 98-107 phlg=598) CO2 (BEAKER) (test 26 meq/L 22-29 fbeh=041) BLOOD UREA NITROGEN 20 mg/dL 7-21 (BEAKER) (test auai=107) CREATININE (BEAKER) (test 0.45 mg/dL 0.57-1.25 rgob=212) GLUCOSE RANDOM (BEAKER) 154 mg/dL 70-105 (test enfb=184) CALCIUM (BEAKER) (test 7.8 mg/dL 8.4-10.2 daxd=307) EGFR (BEAKER) (test 140 mL/min/1.73 sq m ESTIMATED GFR IS NOT hmrv=1993) ACCURATE CREATININE CLEARANCE IN PREDICTING GLOMERULAR FILTRATION RATE. ESTIMATED GFR IS NOT APPLICABLE FOR DIALYSIS PATIENTS. [id number] 05:37:00 Test Item Value Reference Range Comments MAGNESIUM (BEAKER) (test jepq=208) 1.9 mg/dL 1.6-2.6 CALCIUM, [id number] 05:27:00 Test Item Value Reference Range Comments CALCIUM IONIZED (BEAKER) (test iyed=493) 1.04 mmol/L 1.12-1.27 PH, BLOOD (BEAKER) (test csfh=8321) 7.54 CBC (HEMOGRAM ONLY)2019-02-08 05:12:00 Test Item Value Reference Range Comments WHITE BLOOD CELL COUNT (BEAKER) (test dqxy=982) 30.5 K/ L 3.5-10.5 RED BLOOD CELL COUNT (BEAKER) (test fizi=729) 2.95 M/ L 3.93-5.22 HEMOGLOBIN (BEAKER) (test azcr=747) 9.3 GM/DL 11.2-15.7 HEMATOCRIT (BEAKER) (test dvvq=538) 27.1 % 34.1-44.9 MEAN CORPUSCULAR VOLUME (BEAKER) (test eqzt=006) 91.9 fL 79.4-94.8 MEAN CORPUSCULAR HEMOGLOBIN (BEAKER) (test 31.5 pg 25.6-32.2 notk=588) MEAN CORPUSCULAR HEMOGLOBIN CONC (BEAKER) (test 34.3 GM/DL 32.2-35.5 tssu=339) RED CELL DISTRIBUTION WIDTH (BEAKER) (test 13.5 % 11.7-14.4 xlbn=118) PLATELET COUNT (BEAKER) (test psvs=006) 231 K/CU MM 150-450 MEAN PLATELET VOLUME (BEAKER) (test pedn=433) 11.5 fL 9.4-12.3 NUCLEATED RED BLOOD CELLS (BEAKER) (test 0 /100 WBC 0-0 ofny=162) (MANUAL DIFFERENTIAL)2019-02-07 11:38:00 Test Item Value Reference Range Comments NEUTROPHILS - REL (DIFF) (BEAKER) (test 83 % mhwp=3021) LYMPHOCYTES - REL (DIFF) (BEAKER) (test 8 % sejf=2884) MONOCYTES - REL (DIFF) (BEAKER) (test trzy=6929) 6 % MYELOCYTES-REL (DIFF) (BEAKER) (test glur=6547) 2 % 0-0 BANDS - REL (DIFF) (BEAKER) (test dtpv=3214) 1 % 0-10 NEUTROPHILS - ABS (DIFF) (BEAKER) (test 29.96 K/ L 1.80-8.00 eehv=2975) LYMPHOCYTES - ABS (DIFF) (BEAKER) (test 2.89 K/ L 1.48-4.50 zbha=0719) MONOCYTES - ABS (DIFF) (BEAKER) (test klsr=6592) 2.17 K/ L 0.00-1.30 BANDS-ABS (DIFF) (BEAKER) (test hrwc=6693) 0.4 K/ L 0.0-0.8 MYELOCYTES-ABS (DIFF) (BEAKER) (test bgco=9513) 0.72 K/ L 0.00-0.00 TOTAL COUNTED (BEAKER) (test ygim=8875) 100 BANDS + SEGMENTED NEUTROPHILS (BEAKER) (test 30.32 veag=0757) WBC MORPHOLOGY (BEAKER) (test nlzv=693) Normal PLT MORPHOLOGY (BEAKER) (test kdzw=927) Normal RBC MORPHOLOGY (BEAKER) (test ucxz=933) Normal PERIPHERAL BLOOD SMEAR - HOLD [id number] 11:35:00 Test Item Value Reference Range Comments PERIPHERAL SMEAR SAVE (BEAKER) (test rozx=8583) SAVED POCT-GLUCOSE [id number] 11:31:00 Test Item Value Reference Range Comments POC-GLUCOSE METER (BEAKER) 170 mg/dL 70-110 : TESTED AT [facility] [address] [facility] (test gial=6176) [facility], [address]: Market Risk Specialist/Manager Medicare KH=[id number] for Hannah Navarrete CBC (HEMOGRAM ONLY)2019-02-07 07:10:00 Test Item Value Reference Range Comments WHITE BLOOD CELL COUNT (BEAKER) (test trxv=441) 36.1 K/ L 3.5-10.5 RED BLOOD CELL COUNT (BEAKER) (test efeg=016) 3.07 M/ L 3.93-5.22 HEMOGLOBIN (BEAKER) (test wjrx=429) 9.7 GM/DL 11.2-15.7 HEMATOCRIT (BEAKER) (test gpln=213) 28.2 % 34.1-44.9 MEAN CORPUSCULAR VOLUME (BEAKER) (test gnfq=326) 91.9 fL 79.4-94.8 MEAN CORPUSCULAR HEMOGLOBIN (BEAKER) (test 31.6 pg 25.6-32.2 zgwq=700) MEAN CORPUSCULAR HEMOGLOBIN CONC (BEAKER) (test 34.4 GM/DL 32.2-35.5 eosh=016) RED CELL DISTRIBUTION WIDTH (BEAKER) (test 13.1 % 11.7-14.4 pkxq=656) PLATELET COUNT (BEAKER) (test ziae=898) 230 K/CU MM 150-450 MEAN PLATELET VOLUME (BEAKER) (test dmva=543) 11.6 fL 9.4-12.3 NUCLEATED RED BLOOD CELLS (BEAKER) (test 0 /100 WBC 0-0 ouxu=900) POCT-GLUCOSE [id number] 05:57:00 Test Item Value Reference Range Comments POC-GLUCOSE METER (BEAKER) 149 mg/dL 70-110 : TESTED AT [facility] [address] [facility] (test svgn=3744) [facility], [address]: Market Risk Specialist/Manager Medicare HJ=[id number] for Sue Wade [id number] 05:50:00 Test Item Value Reference Range Comments MAGNESIUM (BEAKER) (test 1.9 mg/dL 1.6-2.6 Specimen slightly hemolyzed prvd=571) BASIC METABOLIC [id number] 05:50:00 Test Item Value Reference Range Comments SODIUM (BEAKER) (test 132 meq/L 136-145 slct=047) POTASSIUM (BEAKER) (test 4.7 meq/L 3.5-5.1 Specimen slightly jcmc=804) hemolyzed CHLORIDE (BEAKER) (test 103 meq/L 98-107 totc=175) CO2 (BEAKER) (test 21 meq/L 22-29 ibkp=540) BLOOD UREA NITROGEN 18 mg/dL 7-21 (BEAKER) (test peoj=255) CREATININE (BEAKER) (test 0.47 mg/dL 0.57-1.25 Specimen slightly jlni=874) hemolyzed GLUCOSE RANDOM (BEAKER) 151 mg/dL 70-105 (test obyx=948) CALCIUM (BEAKER) (test 8.0 mg/dL 8.4-10.2 blax=269) EGFR (BEAKER) (test 133 mL/min/1.73 sq m ESTIMATED GFR IS NOT jild=6862) ACCURATE CREATININE CLEARANCE IN PREDICTING GLOMERULAR FILTRATION RATE. ESTIMATED GFR IS NOT APPLICABLE FOR DIALYSIS PATIENTS. CALCIUM, [id number] 05:19:00 Test Item Value Reference Range Comments CALCIUM IONIZED (BEAKER) (test xcwi=942) 0.91 mmol/L 1.12-1.27 PH, BLOOD (BEAKER) (test obxl=4711) 7.60 POCT-GLUCOSE [id number] 00:58:00 Test Item Value Reference Range Comments POC-GLUCOSE METER (BEAKER) 218 mg/dL 70-110 : TESTED AT [facility] [address] [facility] (test ttef=9107) [facility], [address]: Market Risk Specialist/Manager Medicare SC=[id number] for Sue Wade URINALYSIS W/ REFLEX URINE [id number] 00:15:00 Test Item Value Reference Range Comments COLOR (BEAKER) (test daig=203) Yellow CLARITY (BEAKER) (test vajb=044) Clear SPECIFIC GRAVITY UA (BEAKER) (test mdho=248) 1.018 1.001-1.035 PH UA (BEAKER) (test gpyn=927) 7.0 5.0-8.0 PROTEIN UA (BEAKER) (test qupm=810) Negative Negative GLUCOSE UA (BEAKER) (test haik=956) 200 mg/dL Negative KETONES UA (BEAKER) (test hawt=312) Negative Negative BILIRUBIN UA (BEAKER) (test dxaw=783) Negative Negative BLOOD UA (BEAKER) (test mvpo=178) Negative Negative NITRITE UA (BEAKER) (test rwcm=617) Positive Negative LEUKOCYTE ESTERASE UA (BEAKER) (test azlg=251) Moderate Negative UROBILINOGEN UA (BEAKER) (test wsic=997) 0.2 mg/dL 0.2-1.0 RBC UA (BEAKER) (test tbux=922) < /HPF WBC UA (BEAKER) (test bdfo=226) 21 /HPF BACTERIA (BEAKER) (test sdez=121) Occasional SQUAMOUS EPITHELIAL (BEAKER) (test dkhy=353) 1 /HPF SOURCE(BEAKER) (test jfvi=9476) RAD, MANDIBLE, MIN 4 [id number] 20:02:00Reason for exam:->right sided jaw painFINAL REPORT TECHNIQUE: Frontal, axiolateral, and lateral views of the mandible. INDICATION: 63-year-old woman with right- sided jaw pain. COMPARISON: None. FINDINGS:Prior craniotomy.No acute fractures or dislocations.Missing and fractured teeth. IMPRESSION:No acute osseous abnormalities of the mandible. Signed: Tali Barton MDReport Verified Date/ Time: 02/06/2019 20:02:01 Reading Location: [address] Consult Reading Room POCT- GLUCOSE [id number] 18:17:00 Test Item Value Reference Range Comments POC-GLUCOSE METER (BEAKER) 228 mg/dL 70-110 : TESTED AT [address] (test jujh=3665) [facility], [id number]: Market Risk Specialist/Manager Medicare CU=[id number] for Hannah Navarrete RAD, CHEST, 1 VIEW, NON [id number] 08:11:00Reason for exam:->eval for pneumoniaShould this be performed at the bedside?->YesFINAL REPORT INDICATION: eval for pneumonia COMPARISON: None TECHNIQUE: Single frontal view of the chest. FINDINGS: Lungs and pleura: Clear lungs. No effusion.Heart and mediastinum: Normal heart size. Unremarkable mediastinal contours.Osseous structures: No acute abnormality.Other: None. IMPRESSION: No acute intrathoracic abnormality. Signed: Willam Max MDReport Verified Date/ Time: 02/06/2019 08:11:12 Reading Location: [facility] Reading Room 08: 11 AMPOCT-GLUCOSE [id number] 07:39:00 Test Item Value Reference Range Comments POC-GLUCOSE METER (BEAKER) 148 mg/dL 70-110 : TESTED AT [facility] [address] [facility] (test dzhk=4021) [facility], [id number]: Market Risk Specialist/Manager Medicare XB=[id number] for Hannah Navarrete BASIC METABOLIC [id number] 07:01:00 Test Item Value Reference Range Comments SODIUM (BEAKER) (test 132 meq/L 136-145 xbtr=902) POTASSIUM (BEAKER) (test 4.3 meq/L 3.5-5.1 otan=331) CHLORIDE (BEAKER) (test 101 meq/L 98-107 bvbu=997) CO2 (BEAKER) (test 24 meq/L 22-29 debp=047) BLOOD UREA NITROGEN 20 mg/dL 7-21 (BEAKER) (test qotv=455) CREATININE (BEAKER) (test 0.52 mg/dL 0.57-1.25 bqvr=176) GLUCOSE RANDOM (BEAKER) 189 mg/dL 70-105 (test hdsq=058) CALCIUM (BEAKER) (test 7.9 mg/dL 8.4-10.2 lxiu=032) EGFR (BEAKER) (test 119 mL/min/1.73 sq m ESTIMATED GFR IS NOT ytka=7210) ACCURATE CREATININE CLEARANCE IN PREDICTING GLOMERULAR FILTRATION RATE. ESTIMATED GFR IS NOT APPLICABLE FOR DIALYSIS PATIENTS. [id number] 06:28:00 Test Item Value Reference Range Comments PHOSPHORUS (BEAKER) (test zsuo=716) 2.6 mg/dL 2.3-4.7 [id number] 06:28:00 Test Item Value Reference Range Comments MAGNESIUM (BEAKER) (test dmmf=831) 1.9 mg/dL 1.6-2.6 POCT-GLUCOSE [id number] 06:09:00 Test Item Value Reference Range Comments POC-GLUCOSE METER (BEAKER) 159 mg/dL 70-110 : TESTED AT [address] (test rynu=7925) [facility], [id number]: Market Risk Specialist/Manager Medicare SD=[id number] for Laverne Villalobos CBC (HEMOGRAM ONLY)2019-02-06 05:49:00 Test Item Value Reference Range Comments WHITE BLOOD CELL COUNT 32.6 K/ L 3.5-10.5 (BEAKER) (test mphp=937) RED BLOOD CELL COUNT (BEAKER) 3.10 M/ L 3.93-5.22 (test iszw=055) HEMOGLOBIN (BEAKER) (test 10.0 GM/DL 11.2-15.7 vcnh=731) HEMATOCRIT (BEAKER) (test 30.5 % 34.1-44.9 zznb=324) MEAN CORPUSCULAR VOLUME 98.4 fL 79.4-94.8 Discordant MCV results (BEAKER) (test ocfr=915) compared to previous results; clinical correlation required. MEAN CORPUSCULAR HEMOGLOBIN 32.3 pg 25.6-32.2 (BEAKER) (test tans=044) MEAN CORPUSCULAR HEMOGLOBIN 32.8 GM/DL 32.2-35.5 CONC (BEAKER) (test mbdc=837) RED CELL DISTRIBUTION WIDTH 13.1 % 11.7-14.4 (BEAKER) (test enee=320) PLATELET COUNT (BEAKER) (test 176 K/CU MM 150-450 mvud=773) MEAN PLATELET VOLUME (BEAKER) 12.0 fL 9.4-12.3 (test tzwr=583) NUCLEATED RED BLOOD CELLS 0 /100 WBC 0-0 (BEAKER) (test rtem=906) CALCIUM, [id number] 05:00:00 Test Item Value Reference Range Comments CALCIUM IONIZED (BEAKER) (test uaco=297) 1.04 mmol/L 1.12-1.27 PH, BLOOD (BEAKER) (test esaa=5798) 7.49 POCT-GLUCOSE [id number] 00:29:00 Test Item Value Reference Range Comments POC-GLUCOSE METER (BEAKER) 261 mg/dL 70-110 : TESTED AT [place] [id number] [facility] (test vaug=2678) [facility], [address]: Market Risk Specialist/Manager Medicare VD=[id number] for Laverne Villalobos POCT-GLUCOSE [id number] 17:57:00 Test Item Value Reference Range Comments POC-GLUCOSE METER (BEAKER) 202 mg/dL 70-110 : TESTED AT [facility] [address] [facility] (test twdk=3287) [facility], [address]: Market Risk Specialist/Manager Medicare GM=[id number] for DAQUAN CHEUNG POCT-GLUCOSE [id number] 06:38:00 Test Item Value Reference Range Comments POC-GLUCOSE METER (BEAKER) 163 mg/dL 70-110 : TESTED AT [facility] [address] [facility] (test rtjq=4170) [facility], [address]: Market Risk Specialist/Manager Medicare FH=[id number] for Laverne Villalobos [id number] 06:06:00 Test Item Value Reference Range Comments MAGNESIUM (BEAKER) (test 2.0 mg/dL 1.6-2.6 Specimen slightly hemolyzed ltdv=491) [id number] 06:06:00 Test Item Value Reference Range Comments PHOSPHORUS (BEAKER) (test 3.0 mg/dL 2.3-4.7 Specimen slightly hemolyzed iqlz=548) BASIC METABOLIC [id number] 06:06:00 Test Item Value Reference Range Comments SODIUM (BEAKER) (test 135 meq/L 136-145 yllr=917) POTASSIUM (BEAKER) (test 4.2 meq/L 3.5-5.1 Specimen slightly eafc=877) hemolyzed CHLORIDE (BEAKER) (test 104 meq/L 98-107 qqny=379) CO2 (BEAKER) (test 25 meq/L 22-29 wsbg=262) BLOOD UREA NITROGEN 18 mg/dL 7-21 (BEAKER) (test niji=031) CREATININE (BEAKER) (test 0.47 mg/dL 0.57-1.25 Specimen slightly zzpn=519) hemolyzed GLUCOSE RANDOM (BEAKER) 168 mg/dL 70-105 (test xgka=379) CALCIUM (BEAKER) (test 8.1 mg/dL 8.4-10.2 jsyd=899) EGFR (BEAKER) (test 133 mL/min/1.73 sq m ESTIMATED GFR IS NOT dmod=1660) ACCURATE CREATININE CLEARANCE IN PREDICTING GLOMERULAR FILTRATION RATE. ESTIMATED GFR IS NOT APPLICABLE FOR DIALYSIS PATIENTS. CBC (HEMOGRAM ONLY)2019-02-05 05:31:00 Test Item Value Reference Range Comments WHITE BLOOD CELL COUNT (BEAKER) (test bxwn=202) 20.4 K/ L 3.5-10.5 RED BLOOD CELL COUNT (BEAKER) (test crxw=704) 2.85 M/ L 3.93-5.22 HEMOGLOBIN (BEAKER) (test zzor=496) 8.9 GM/DL 11.2-15.7 HEMATOCRIT (BEAKER) (test gxcb=060) 26.8 % 34.1-44.9 MEAN CORPUSCULAR VOLUME (BEAKER) (test bxef=501) 94.0 fL 79.4-94.8 MEAN CORPUSCULAR HEMOGLOBIN (BEAKER) (test 31.2 pg 25.6-32.2 yptx=820) MEAN CORPUSCULAR HEMOGLOBIN CONC (BEAKER) (test 33.2 GM/DL 32.2-35.5 ldtn=866) RED CELL DISTRIBUTION WIDTH (BEAKER) (test 12.9 % 11.7-14.4 karb=273) PLATELET COUNT (BEAKER) (test zwul=007) 180 K/CU MM 150-450 MEAN PLATELET VOLUME (BEAKER) (test hptr=468) 11.9 fL 9.4-12.3 NUCLEATED RED BLOOD CELLS (BEAKER) (test 0 /100 WBC 0-0 dnbj=890) CALCIUM, [id number] 05:20:00 Test Item Value Reference Range Comments CALCIUM IONIZED (BEAKER) (test qqwj=392) 1.03 mmol/L 1.12-1.27 PH, BLOOD (BEAKER) (test athv=9187) 7.56 POCT-GLUCOSE [id number] 00:10:00 Test Item Value Reference Range Comments POC-GLUCOSE METER (BEAKER) 174 mg/dL 70-110 : TESTED AT [facility] [address] [facility] (test ibmg=1929) [facility], [address]: Market Risk Specialist/Manager Medicare QS=[id number] for Wilfredo Laverne HEMOGLOBIN AND [id number] 21:37:00 Test Item Value Reference Range Comments HEMOGLOBIN (BEAKER) (test dpzw=398) 8.5 GM/DL 11.2-15.7 HEMATOCRIT (BEAKER) (test ubbh=194) 25.4 % 34.1-44.9 POCT-GLUCOSE [id number] 12:08:00 Test Item Value Reference Range Comments POC-GLUCOSE METER (BEAKER) 154 mg/dL 70-110 : TESTED AT [facility] [address] (test bikp=9215) [place], [address]: Market Risk Specialist/Manager Medicare DQ=[id number] for JETHRO MURPHY BASIC METABOLIC [id number] 06:24:00 Test Item Value Reference Range Comments SODIUM (BEAKER) (test 141 meq/L 136-145 bazv=729) POTASSIUM (BEAKER) (test 4.2 meq/L 3.5-5.1 alje=079) CHLORIDE (BEAKER) (test 112 meq/L 98-107 sxoa=680) CO2 (BEAKER) (test 18 meq/L 22-29 kqod=038) BLOOD UREA NITROGEN 28 mg/dL 7-21 (BEAKER) (test atdg=645) CREATININE (BEAKER) (test 0.50 mg/dL 0.57-1.25 tbgv=962) GLUCOSE RANDOM (BEAKER) 163 mg/dL 70-105 (test jwra=822) CALCIUM (BEAKER) (test 7.9 mg/dL 8.4-10.2 tpab=243) EGFR (BEAKER) (test 124 mL/min/1.73 sq m ESTIMATED GFR IS NOT oylo=0356) ACCURATE CREATININE CLEARANCE IN PREDICTING GLOMERULAR FILTRATION RATE. ESTIMATED GFR IS NOT APPLICABLE FOR DIALYSIS PATIENTS. [id number] 06:22:00 Test Item Value Reference Range Comments PHOSPHORUS (BEAKER) (test yrth=316) 2.8 mg/dL 2.3-4.7 [id number] 06:22:00 Test Item Value Reference Range Comments MAGNESIUM (BEAKER) (test tcqj=859) 2.2 mg/dL 1.6-2.6 CBC (HEMOGRAM ONLY)2019-02-04 06:18:00 Test Item Value Reference Range Comments WHITE BLOOD CELL COUNT (BEAKER) (test vrzu=435) 18.2 K/ L 3.5-10.5 RED BLOOD CELL COUNT (BEAKER) (test ktzu=747) 2.48 M/ L 3.93-5.22 HEMOGLOBIN (BEAKER) (test abnx=949) 7.9 GM/DL 11.2-15.7 HEMATOCRIT (BEAKER) (test pchc=900) 23.9 % 34.1-44.9 MEAN CORPUSCULAR VOLUME (BEAKER) (test vxqu=505) 96.4 fL 79.4-94.8 MEAN CORPUSCULAR HEMOGLOBIN (BEAKER) (test 31.9 pg 25.6-32.2 tbxb=572) MEAN CORPUSCULAR HEMOGLOBIN CONC (BEAKER) (test 33.1 GM/DL 32.2-35.5 bauo=433) RED CELL DISTRIBUTION WIDTH (BEAKER) (test 13.6 % 11.7-14.4 asba=682) PLATELET COUNT (BEAKER) (test iyzk=737) 170 K/CU MM 150-450 MEAN PLATELET VOLUME (BEAKER) (test togr=261) 12.1 fL 9.4-12.3 NUCLEATED RED BLOOD CELLS (BEAKER) (test 0 /100 WBC 0-0 jwci=119) CALCIUM, [id number] 05:30:00 Test Item Value Reference Range Comments CALCIUM IONIZED (BEAKER) (test eewk=298) 1.13 mmol/L 1.12-1.27 PH, BLOOD (BEAKER) (test stww=6099) 7.48 HEMOGLOBIN AND [id number] 20:38:00 Test Item Value Reference Range Comments HEMOGLOBIN (BEAKER) (test duaf=714) 8.6 GM/DL 11.2-15.7 HEMATOCRIT (BEAKER) (test jmpd=413) 26.3 % 34.1-44.9 TISSUE [id number] 14:41:00Surgical Pathology Report Case: [id number] Authorizing Provider: Elijah Cheung MD Collected: 01/31/2019 0854 Ordering Location: [place] [address] ICU Received: 01/31/2019 0900 Pathologist: Henri Dumont MD Specimens: A) - Tumor, Large Frontal Tumor B) - Tumor, Large Frontal Tumor C) -Tumor, Parietal Tumor A. 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 BRAIN, FRONTAL, EXCISION: - MICROCYSTIC MENINGIOMA (WHO GRADE I) Signing Pathologist Direct Phone Line: [phone] signed by Henri Dumont MD on 02/03/2019 at 2:41 PMThe meningioma lacks atypical changes with frequent microcyst formation. KRYSTIAN and Ki-67 immunostains were performed with the appropriate controls. KRYSTIAN shows rare, weak, membranous staining including microcystic areas.. Ki-67 shows an average proliferation indexof 8.8% . Although no atypical histologic changes and no increased mitotic activity are noted, the proliferation index may portend more aggressive behavior and risk of recurrence. Close clinical follow-up may be warranted if clinically indicated. 65809 x 2; 63313; 44711; 78351Frwubzzoim A. Large frontal tumor. B. Large frontal tumor. C. Parietal tumorA. Received fresh for intraoperative frozen consultation labeled "frontal" are 4 melendrez-pink to yellow tissues ranging from 0.2 to 0.5 cm in greatest dimension. A portion is submitted for touch preparation and frozen section in cassette FSA1, and the entire remaining tissue is submitted in cassette A2. NWB. Received in formalin labeled "frontal" is a 2.3 x 2.3 x 1 cm aggregate of melendrez to pink tissue. The specimen is sectioned and submitted entirely in cassettes B1-B2.C. Received in formalin labeled "parietal" is a 1.0 x 0.8 x 0.4 cm aggregate of melendrez-pinkto red-brown tissue, which is submitted entirely in cassette C1. MW/ewFSA1. BRAIN, FRONTAL, BIOPSY: - MENINGIOMAReported by Dr. Dumont to Dr. Cheung on Jan 31 2019 at 9:45 AM.A-B. Performed.The interpretation of this case included the use of immunohistochemistry or special stains.Control Slides Examined: In-house known positive controls were evaluated along with the test tissue. These control slides run alongside of the patients sample show appropriate staining. Internal positive and negative controls when available are evaluated Immunohistochemistry technical testing was performed at [facility]ology Laboratory where it was developed and its performance characteristics were determined. It has not been cleared or approved by the U.S. Food and Drug Administration. The FDA has determined that such clearance or approval is not necessary. The test is used for clinical purposes. It should not be regarded as investigational or for research. This laboratory is certified under the Clinical Laboratory Improvement Amendments of 1988 (CLIA-88 ) as qualified to perform high complexity clinical laboratory testing.HEMOGLOBIN AND [id number] 14:25:00 Test Item Value Reference Range Comments HEMOGLOBIN (BEAKER) (test ssol=525) 7.9 GM/DL 11.2-15.7 HEMATOCRIT (BEAKER) (test mrvt=168) 23.7 % 34.1-44.9 [id number] 11:30:00 Test Item Value Reference Range Comments SODIUM (BEAKER) (test ndky=329) 144 meq/L 136-145 CALCIUM, [id number] 06:44:00 Test Item Value Reference Range Comments CALCIUM IONIZED (BEAKER) (test xraf=920) 1.09 mmol/L 1.12-1.27 PH, BLOOD (BEAKER) (test kkxv=0332) 7.45 BASIC METABOLIC [id number] 05:42:00 Test Item Value Reference Range Comments SODIUM (BEAKER) (test 146 meq/L 136-145 pyzl=284) POTASSIUM (BEAKER) (test 3.9 meq/L 3.5-5.1 vosh=984) CHLORIDE (BEAKER) (test 120 meq/L 98-107 owrl=929) CO2 (BEAKER) (test 22 meq/L 22-29 ltrc=038) BLOOD UREA NITROGEN 18 mg/dL 7-21 (BEAKER) (test cuur=223) CREATININE (BEAKER) (test 0.45 mg/dL 0.57-1.25 qijs=785) GLUCOSE RANDOM (BEAKER) 159 mg/dL 70-105 (test ogvg=822) CALCIUM (BEAKER) (test 7.3 mg/dL 8.4-10.2 raxj=139) EGFR (BEAKER) (test 140 mL/min/1.73 sq m ESTIMATED GFR IS NOT tcqb=4813) ACCURATE CREATININE CLEARANCE IN PREDICTING GLOMERULAR FILTRATION RATE. ESTIMATED GFR IS NOT APPLICABLE FOR DIALYSIS PATIENTS. [id number] 05:22:00 Test Item Value Reference Range Comments PHOSPHORUS (BEAKER) (test gekp=931) 1.9 mg/dL 2.3-4.7 [id number] 05:22:00 Test Item Value Reference Range Comments MAGNESIUM (BEAKER) (test dgcb=491) 2.3 mg/dL 1.6-2.6 HEMOGLOBIN AND [id number] 05:05:00 Test Item Value Reference Range Comments HEMOGLOBIN (BEAKER) (test vyoi=728) 7.5 GM/DL 11.2-15.7 HEMATOCRIT (BEAKER) (test xxph=713) 23.2 % 34.1-44.9 [id number] 02:17:00 Test Item Value Reference Range Comments SODIUM (BEAKER) (test noiu=302) 143 meq/L 136-145 CBC (HEMOGRAM ONLY)2019-02-03 01:27:00 Test Item Value Reference Range Comments WHITE BLOOD CELL COUNT (BEAKER) (test wdml=282) 17.7 K/ L 3.5-10.5 RED BLOOD CELL COUNT (BEAKER) (test roza=850) 2.43 M/ L 3.93-5.22 HEMOGLOBIN (BEAKER) (test gvuo=100) 7.8 GM/DL 11.2-15.7 HEMATOCRIT (BEAKER) (test pznb=567) 23.5 % 34.1-44.9 MEAN CORPUSCULAR VOLUME (BEAKER) (test ezyv=092) 96.7 fL 79.4-94.8 MEAN CORPUSCULAR HEMOGLOBIN (BEAKER) (test 32.1 pg 25.6-32.2 obvt=270) MEAN CORPUSCULAR HEMOGLOBIN CONC (BEAKER) (test 33.2 GM/DL 32.2-35.5 qqqm=343) RED CELL DISTRIBUTION WIDTH (BEAKER) (test 13.7 % 11.7-14.4 ekex=568) PLATELET COUNT (BEAKER) (test ymon=695) 145 K/CU MM 150-450 MEAN PLATELET VOLUME (BEAKER) (test tjgw=992) 12.3 fL 9.4-12.3 NUCLEATED RED BLOOD CELLS (BEAKER) (test 0 /100 WBC 0-0 eeqq=218) [id number] 18:21:00 Test Item Value Reference Range Comments SODIUM (BEAKER) (test nrdm=628) 146 meq/L 136-145 HEMOGLOBIN AND [id number] 17:59:00 Test Item Value Reference Range Comments HEMOGLOBIN (BEAKER) (test tokt=867) 8.5 GM/DL 11.2-15.7 HEMATOCRIT (BEAKER) (test vnda=325) 26.0 % 34.1-44.9 BASIC METABOLIC [id number] 12:30:00 Test Item Value Reference Range Comments SODIUM (BEAKER) (test 144 meq/L 136-145 epdb=522) POTASSIUM (BEAKER) (test 3.8 meq/L 3.5-5.1 Specimen slightly hjmq=476) hemolyzed CHLORIDE (BEAKER) (test 115 meq/L 98-107 qrqs=059) CO2 (BEAKER) (test 24 meq/L 22-29 aibb=535) BLOOD UREA NITROGEN 14 mg/dL 7-21 (BEAKER) (test fdva=802) CREATININE (BEAKER) (test 0.52 mg/dL 0.57-1.25 Specimen slightly qvwp=371) hemolyzed GLUCOSE RANDOM (BEAKER) 206 mg/dL 70-105 (test ufkp=893) CALCIUM (BEAKER) (test 7.7 mg/dL 8.4-10.2 olxb=089) EGFR (BEAKER) (test 119 mL/min/1.73 sq m ESTIMATED GFR IS NOT hhrz=0782) ACCURATE CREATININE CLEARANCE IN PREDICTING GLOMERULAR FILTRATION RATE. ESTIMATED GFR IS NOT APPLICABLE FOR DIALYSIS PATIENTS. MR, MRA, BRAIN, WITH [id number] 11:58:00Please perform MRVFINAL REPORT MR, MRA, BRAIN, WITH CONTRAST CLINICAL HISTORY: Cerebral edema COMPARISON: Relation to CT angiography February 02, 2019 and contrast enhanced brain MRI February 01, 2019 TECHNIQUE:Two-dimensional jlcx-vr-kiirqs MR venogram of the brain in the coronal and axial planewas obtained, with three- dimensional reconstructed images, after administration of intravenous contrast. IMPRESSION:The inferior sagittal sinus is atretic and displaced laterally subjacent to the operative cavity. Superior sagittal sinus, torcular, transverse and sigmoid sinuses are patent. There is preserved patency bilaterally in the internal cerebral veins and bilaterally in the veins of Kurt. The straight sinus is preserved. Signed: JR Hill Robert MDReport Verified Date/Time: 02/02/2019 11:58:58 Reading Location: [address] Neuro Reading Room [id number] 11:02:00 Test Item Value Reference Range Comments HAPTOGLOBIN (BEAKER) (test rhrb=990) 255 mg/dL 14-258 IRON, TIBC, % SAT. (WITHOUT FERRITIN)2019-02-02 10:58:00 Test Item Value Reference Range Comments IRON (BEAKER) (test kyms=274) 26.0 ug/dL 40.0-160.0 TOTAL IRON BINDING CAPACITY (BEAKER) (test 220 ug/dL 250-450 osgc=328) IRON % SATURATION (2) (BEAKER) (test auia=2117) 12 % 20-55 [id number] 10:32:00 Test Item Value Reference Range Comments SODIUM (BEAKER) (test flmd=548) 144 meq/L 136-145 CBC W/PLT COUNT & AUTO [id number] 10:22:00 Test Item Value Reference Range Comments WHITE BLOOD CELL COUNT (BEAKER) (test bdtr=741) 18.9 K/ L 3.5-10.5 RED BLOOD CELL COUNT (BEAKER) (test znri=164) 2.41 M/ L 3.93-5.22 HEMOGLOBIN (BEAKER) (test fxgs=123) 7.7 GM/DL 11.2-15.7 HEMATOCRIT (BEAKER) (test dplq=307) 23.6 % 34.1-44.9 MEAN CORPUSCULAR VOLUME (BEAKER) (test mszr=077) 97.9 fL 79.4-94.8 MEAN CORPUSCULAR HEMOGLOBIN (BEAKER) (test 32.0 pg 25.6-32.2 jgza=365) MEAN CORPUSCULAR HEMOGLOBIN CONC (BEAKER) (test 32.6 GM/DL 32.2-35.5 hfkd=943) RED CELL DISTRIBUTION WIDTH (BEAKER) (test 13.7 % 11.7-14.4 algp=634) PLATELET COUNT (BEAKER) (test wwtb=713) 142 K/CU MM 150-450 MEAN PLATELET VOLUME (BEAKER) (test kmsf=369) 13.0 fL 9.4-12.3 NUCLEATED RED BLOOD CELLS (BEAKER) (test 0 /100 WBC 0-0 fmho=991) NEUTROPHILS RELATIVE PERCENT (BEAKER) (test 85 % gpjw=821) LYMPHOCYTES RELATIVE PERCENT (BEAKER) (test 6 % rpsa=283) MONOCYTES RELATIVE PERCENT (BEAKER) (test 5 % dcde=123) EOSINOPHILS RELATIVE PERCENT (BEAKER) (test 0 % kftl=366) BASOPHILS RELATIVE PERCENT (BEAKER) (test 0 % wgnn=054) NEUTROPHILS ABSOLUTE COUNT (BEAKER) (test 16.09 K/ L 1.56-6.13 ohdc=037) LYMPHOCYTES ABSOLUTE COUNT (BEAKER) (test 1.15 K/ L 1.18-3.74 zrhf=853) MONOCYTES ABSOLUTE COUNT (BEAKER) (test 1.02 K/ L 0.24-0.36 zhzl=652) EOSINOPHILS ABSOLUTE COUNT (BEAKER) (test 0.00 K/ L 0.04-0.36 ycra=864) BASOPHILS ABSOLUTE COUNT (BEAKER) (test 0.02 K/ L 0.01-0.08 pozg=590) IMMATURE GRANULOCYTES-RELATIVE PERCENT (BEAKER) 3 % 0-1 (test kquq=4705) LACTATE DEHYDROGENASE (LDH)2019-02-02 10:06:00 Test Item Value Reference Range Comments LACTATE DEHYDROGENASE (BEAKER) (test hqef=095) 176 U/L 125-220 HEMOGLOBIN AND [id number] 10:04:00 Test Item Value Reference Range Comments HEMOGLOBIN (BEAKER) (test tbnz=877) 8.4 GM/DL 11.2-15.7 HEMATOCRIT (BEAKER) (test lhfx=354) 25.0 % 34.1-44.9 HEMOGLOBIN AND [id number] 07:48:00 Test Item Value Reference Range Comments HEMOGLOBIN (BEAKER) (test ohsc=145) 7.6 GM/DL 11.2-15.7 HEMATOCRIT (BEAKER) (test eynz=953) 23.6 % 34.1-44.9 CALCIUM, [id number] 07:01:00 Test Item Value Reference Range Comments CALCIUM IONIZED (BEAKER) (test lhue=095) 1.07 mmol/L 1.12-1.27 PH, BLOOD (BEAKER) (test ypas=4520) 7.41 CT, CTANGIO [id number] 06:58:00CT brain venogram neededAnesthesia:-> NoneFINAL REPORT CT, CTANGIO BRAINBRAIN CT WITHOUT CONTRAST INDICATION: Intracranial hemorrhage, follow upBrain mass or lesion, follow-up COMPARISON: Noncontrast head CT January 31, 2019, postcontrast brain MRI February 01, 2019 TECHNIQUE:Rapid acquisition spiral images were obtained between the skull base and the cranial vertex during intravenous contrast infusion to reconstructaxial images and angiographic 3D maximum intensity projections (MIP). 3-D volumetric reformatted images were created at a dedicated workstation. Precontrast images of the brain were also obtained. DOSE REDUCTION: Dose modulation, iterative reconstruction, and/or weight-based adjustment of the mA/kV was utilized to reduce the radiation dose to as low as reasonably achievable. FINDINGS:CT BRAIN:Evolving right frontal ischemic changes with decreasing foci of hemorrhage following surgical resection. Pneumocephalus and punctate foci of gas are noted in both nondependently over the frontal convexities and over the operative site. Gas foci are noted as deep as the parafalcine region over the corpus callosum body and across the midline near the perirolandic sulcus on the left. Edematous territory in thedeep white matter is unchanged from the preoperative examination. There is focal hypoattenuation in the left superior frontal gyrus, also unchanged from the preoperative examination. The edema creates mass effect resulting in midline shift, decreased from the prior examination and currently approximately 7 mm leftward at the level of the foramen of Monro (compared to approximately 13 mm by retrospective measurement in the January [address] CT exam). Craniotomy flap demonstrates anatomic positioning without offset. No new ischemic or hemorrhagic injury is demonstrated over the interval. IMPRESSION: Evolving postoperative changes following parafalcine meningioma resection. No worsening of white matter changes when compared to the prior CT examination. Marked improvement in midline shift (7 mm leftward compared to 13 mm in the preoperative examination). Decreasing intracranial hemorrhage. Expected operative changes within the cranial vault including scattered pneumocephalus which is not restricted to the prefrontal regions. Signed: JR Hill Robert MDReport Verified Date/Time: 02/02/2019 06:58:52 Reading Location: [address] Neuro Reading Room BASIC METABOLIC [id number] 05:11:00 Test Item Value Reference Range Comments SODIUM (BEAKER) (test 146 meq/L 136-145 hiua=218) POTASSIUM (BEAKER) (test 3.7 meq/L 3.5-5.1 uajm=419) CHLORIDE (BEAKER) (test 118 meq/L 98-107 ehxf=951) CO2 (BEAKER) (test 25 meq/L 22-29 clbd=321) BLOOD UREA NITROGEN 14 mg/dL 7-21 (BEAKER) (test cgui=206) CREATININE (BEAKER) (test 0.48 mg/dL 0.57-1.25 wkzc=854) GLUCOSE RANDOM (BEAKER) 170 mg/dL 70-105 (test uguj=523) CALCIUM (BEAKER) (test 7.5 mg/dL 8.4-10.2 sqon=083) EGFR (BEAKER) (test 130 mL/min/1.73 sq m ESTIMATED GFR IS NOT uiiv=2846) ACCURATE CREATININE CLEARANCE IN PREDICTING GLOMERULAR FILTRATION RATE. ESTIMATED GFR IS NOT APPLICABLE FOR DIALYSIS PATIENTS. CBC (HEMOGRAM ONLY)2019-02-02 04:57:00 Test Item Value Reference Range Comments WHITE BLOOD CELL COUNT (BEAKER) (test ytql=950) 20.2 K/ L 3.5-10.5 RED BLOOD CELL COUNT (BEAKER) (test ugon=176) 2.36 M/ L 3.93-5.22 HEMOGLOBIN (BEAKER) (test kjpa=550) 7.5 GM/DL 11.2-15.7 HEMATOCRIT (BEAKER) (test uime=898) 23.1 % 34.1-44.9 MEAN CORPUSCULAR VOLUME (BEAKER) (test lcpq=429) 97.9 fL 79.4-94.8 MEAN CORPUSCULAR HEMOGLOBIN (BEAKER) (test 31.8 pg 25.6-32.2 tfkh=016) MEAN CORPUSCULAR HEMOGLOBIN CONC (BEAKER) (test 32.5 GM/DL 32.2-35.5 utvh=837) RED CELL DISTRIBUTION WIDTH (BEAKER) (test 13.7 % 11.7-14.4 uhki=824) PLATELET COUNT (BEAKER) (test jpxk=030) 124 K/CU MM 150-450 MEAN PLATELET VOLUME (BEAKER) (test usys=669) 12.1 fL 9.4-12.3 NUCLEATED RED BLOOD CELLS (BEAKER) (test 0 /100 WBC 0-0 foxv=750) [id number] 04:33:00 Test Item Value Reference Range Comments PHOSPHORUS (BEAKER) (test xazw=299) 1.6 mg/dL 2.3-4.7 [id number] 04:33:00 Test Item Value Reference Range Comments MAGNESIUM (BEAKER) (test iiaj=376) 2.1 mg/dL 1.6-2.6 [id number] 22:31:00 Test Item Value Reference Range Comments SODIUM (BEAKER) (test ohja=658) 143 meq/L 136-145 HEMOGLOBIN AND [id number] 22:14:00 Test Item Value Reference Range Comments HEMOGLOBIN (BEAKER) (test ufap=927) 8.5 GM/DL 11.2-15.7 HEMATOCRIT (BEAKER) (test itcl=730) 26.4 % 34.1-44.9 BUN AND [id number] 21:08:00 Test Item Value Reference Range Comments BLOOD UREA NITROGEN 15 mg/dL 7-21 (BEAKER) (test yalg=994) CREATININE (BEAKER) (test 0.57 mg/dL 0.57-1.25 Specimen slightly cndj=321) hemolyzed EGFR (BEAKER) (test 107 mL/min/1.73 sq m ESTIMATED GFR IS NOT nloq=0476) ACCURATE CREATININE CLEARANCE IN PREDICTING GLOMERULAR FILTRATION RATE. ESTIMATED GFR IS NOT APPLICABLE FOR DIALYSIS PATIENTS. [id number] 18:06:00 Test Item Value Reference Range Comments SODIUM (BEAKER) (test xjud=522) 142 meq/L 136-145 HEMOGLOBIN AND [id number] 17:55:00 Test Item Value Reference Range Comments HEMOGLOBIN (BEAKER) (test wfvf=511) 9.1 GM/DL 11.2-15.7 HEMATOCRIT (BEAKER) (test ksfs=017) 27.5 % 34.1-44.9 POCT-GLUCOSE [id number] 17:33:00 Test Item Value Reference Range Comments POC-GLUCOSE METER (BEAKER) 164 mg/dL 70-110 : TESTED AT [facility] [address] [facility] (test deos=7935) [facility], [id number]: Market Risk Specialist/Manager Medicare QQ=[id number] for Smita Olsen MR, BRAIN, [id number] 17:22:00Deos the patient have an implanted electronic device?->NoFINAL REPORT MR, BRAIN, WITH \\T\\ WITHOUT CONTRAST INDICATION: Brain mass or lesion, follow-up TECHNIQUE: Multiplanar, multisequence MR imaging of the brain prior to and followingintravenous administration of contrast. 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 Expected postoperative pneumocephalus and small amount of blood products in the bilateral parafalcine regions and directly underlying thecraniotomy. There is trace residual right anterior parafalcine enhancement adjacent to the ACAs. There is restricted diffusion within the mesial right frontal lobe in a right JULIO distribution, as well as a small rim of cytotoxic edema surrounding the removed posterior/parietal component of the tumor involving bilateral paramedian parietal lobes. Parenchymal FLAIR hyperintensity within the right frontal and parietal lobes is very similar to preoperative exam. Additional foci of T2 prolongation within the periventricular and subcortical white matter are a nonspecific finding commonly attributed to chronic small vessel ischemic disease. Again noted are multiple remote punctate microhemorrhages within the bilateral basal ganglia and thalami as well as the bilateral temporal and occipital lobes and cerebellar hemispheres, predominantly in a central distribution suggestive of hypertension. Unchanged small area of encephalomalacia within the posterolateral left parietal lobe series 501 image 23). No hydrocephalus. Visualized intracranial flow voids are of normal course and caliber. The major dural venous sinuses appear patent and demonstrate normal enhancement. Sinuses: No evidence of sinusitis. Mastoids are clear. Orbits: Globes are intact. Calvarium \\T\\ scalp: Unremarkable. IMPRESSION: Interval resection of the multifocal extra-axial parafalcine lesions in the right frontal and parietal regions.Trace residual right anterior parafalcine enhancement in the region where the tumor was encasing or adherent to the right JULIO, as expected. Infarct in the right JULIO territory may be due to vasospasm. Otherwise expected postoperative findings. No evidence of dural venous thrombosis on the postcontrast images of this exam. MRV is scheduled for tomorrow morning. These findings were discussed with Dr. Jain and Dr. Cheung on 02/01/2019. Signed: Nusrat Castillo Verified Date/Time: 02/01/2019 17:22:43 [id number] 12:57:00 Test Item Value Reference Range Comments SODIUM (BEAKER) (test rmrb=895) 142 meq/L 136-145 POCT-GLUCOSE [id number] 11:31:00 Test Item Value Reference Range Comments POC-GLUCOSE METER (BEAKER) 137 mg/dL 70-110 : TESTED AT [facility] [address] (test sjsl=7331) [facility], [id number]: Market Risk Specialist/Manager Medicare RW=[id number] for REGINALD DAILY BASIC METABOLIC [id number] 06:51:00 Test Item Value Reference Range Comments SODIUM (BEAKER) (test 141 meq/L 136-145 zpqn=107) POTASSIUM (BEAKER) (test 3.8 meq/L 3.5-5.1 msqg=274) CHLORIDE (BEAKER) (test 115 meq/L 98-107 asys=084) CO2 (BEAKER) (test 22 meq/L 22-29 gukd=426) BLOOD UREA NITROGEN 15 mg/dL 7-21 (BEAKER) (test kmwj=499) CREATININE (BEAKER) (test 0.61 mg/dL 0.57-1.25 qpwu=254) GLUCOSE RANDOM (BEAKER) 164 mg/dL 70-105 (test sgsd=360) CALCIUM (BEAKER) (test 7.1 mg/dL 8.4-10.2 opyu=676) EGFR (BEAKER) (test 99 mL/min/1.73 sq m ESTIMATED GFR IS NOT bgov=8192) ACCURATE CREATININE CLEARANCE IN PREDICTING GLOMERULAR FILTRATION RATE. ESTIMATED GFR IS NOT APPLICABLE FOR DIALYSIS PATIENTS. CBC (HEMOGRAM ONLY)2019-02-01 06:34:00 Test Item Value Reference Range Comments WHITE BLOOD CELL COUNT (BEAKER) 21.1 K/ L 3.5-10.5 (test olxx=459) RED BLOOD CELL COUNT (BEAKER) 2.55 M/ L 3.93-5.22 (test mcmv=633) HEMOGLOBIN (BEAKER) (test 7.9 GM/DL 11.2-15.7 Surgery done as per ybpd=896) [id number] HEMATOCRIT (BEAKER) (test 24.2 % 34.1-44.9 fdbr=740) MEAN CORPUSCULAR VOLUME 94.9 fL 79.4-94.8 (BEAKER) (test idir=307) MEAN CORPUSCULAR HEMOGLOBIN 31.0 pg 25.6-32.2 (BEAKER) (test qhvl=498) MEAN CORPUSCULAR HEMOGLOBIN 32.6 GM/DL 32.2-35.5 CONC (BEAKER) (test bdcm=882) RED CELL DISTRIBUTION WIDTH 13.3 % 11.7-14.4 (BEAKER) (test qehc=398) PLATELET COUNT (BEAKER) (test 125 K/CU MM 150-450 hniy=575) MEAN PLATELET VOLUME (BEAKER) 12.2 fL 9.4-12.3 (test vjhg=466) NUCLEATED RED BLOOD CELLS 0 /100 WBC 0-0 (BEAKER) (test otdd=506) [id number] 06:31:00 Test Item Value Reference Range Comments PHOSPHORUS (BEAKER) (test czwf=374) 2.5 mg/dL 2.3-4.7 [id number] 06:31:00 Test Item Value Reference Range Comments MAGNESIUM (BEAKER) (test qpuf=625) 2.1 mg/dL 1.6-2.6 CALCIUM, [id number] 06:21:00 Test Item Value Reference Range Comments CALCIUM IONIZED (BEAKER) (test lxgy=394) 1.05 mmol/L 1.12-1.27 PH, BLOOD (BEAKER) (test armb=9417) 7.48 POCT-GLUCOSE [id number] 06:08:00 Test Item Value Reference Range Comments POC-GLUCOSE METER (BEAKER) 144 mg/dL 70-110 : TESTED AT [address] (test yhnx=8618) [facility], [id number]: Market Risk Specialist/Manager Medicare XQ=[id number] for BRENDEN LEON [id number] 00:23:00 Test Item Value Reference Range Comments SODIUM (BEAKER) (test vcwv=051) 141 meq/L 136-145 POCT-GLUCOSE [id number] 00:01:00 Test Item Value Reference Range Comments POC-GLUCOSE METER (BEAKER) 145 mg/dL 70-110 : TESTED AT [address] (test qhqo=5629) [facility], [id number]: Market Risk Specialist/Manager Medicare KA=[id number] for BRENDEN LEON POCT-GLUCOSE [id number] 18:02:00 Test Item Value Reference Range Comments POC-GLUCOSE METER (BEAKER) 137 mg/dL 70-110 : TESTED AT [address] (test rwze=5934) [facility], [id number]: Market Risk Specialist/Manager Medicare FD=[id number] for Sylvia Beasley CALCIUM, [id number] 11:09:00 Test Item Value Reference Range Comments CALCIUM IONIZED (BEAKER) (test emwm=239) 1.23 mmol/L 1.12-1.27 PH, BLOOD (BEAKER) (test zwhd=3406) 7.39 BLOOD GAS, [id number] 11:02:00 Test Item Value Reference Range Comments PH ARTERIAL (BEAKER) (test fysy=269) 7.40 7.35-7.45 PCO2 ARTERIAL (BEAKER) (test pkem=647) 35 mmHg 35-45 PO2 ARTERIAL (BEAKER) (test vdmn=465) 198 mmHg 80-90 O2 SATURATION ARTERIAL (BEAKER) (test yesd=414) 99.4 % 96.0-97.0 HCO3 ARTERIAL (BEAKER) (test tgkc=061) 22 mmol/L 21-29 BASE EXCESS ARTERIAL (BEAKER) (test vxjh=852) -3.0 mmol/L -2.0-3.0 PATIENT TEMPERATURE (BEAKER) (test heud=0540) 35.9 C FIO2 (BEAKER) (test gedm=2351) 50.0 % GLUCOSE-STAT [id number] 11:02:00 Test Item Value Reference Range Comments GLUCOSE RANDOM (BEAKER) (test ibem=897) 136 mg/dL 70-110 SODIUM NA-STAT [id number] 11:01:00 Test Item Value Reference Range Comments SODIUM (BEAKER) (test ycrf=337) 138 meq/L 135-148 POTASSIUM-STAT [id number] 11:01:00 Test Item Value Reference Range Comments POTASSIUM (BEAKER) (test wyki=229) 3.9 meq/L 3.6-5.5 HGB/HCT (H&H) - STAT [id number] 11:01:00 Test Item Value Reference Range Comments HEMOGLOBIN (BEAKER) (test vhdt=953) 12.3 g/dL 12.0-15.0 HEMATOCRIT (BEAKER) (test mgjf=982) 36.0 % 36.0-45.0 SODIUM NA-STAT [id number] 10:15:00 Test Item Value Reference Range Comments SODIUM (BEAKER) (test sbgb=504) 137 meq/L 135-148 POTASSIUM-STAT [id number] 10:15:00 Test Item Value Reference Range Comments POTASSIUM (BEAKER) (test tsom=838) 4.3 meq/L 3.6-5.5 HGB/HCT (H&H) - STAT [id number] 10:15:00 Test Item Value Reference Range Comments HEMOGLOBIN (BEAKER) (test vyxx=580) 12.7 GM/DL 12.0-15.0 HEMATOCRIT (BEAKER) (test gnkj=325) 37.0 % 36.0-45.0 CALCIUM, [id number] 10:02:00 Test Item Value Reference Range Comments CALCIUM IONIZED (BEAKER) (test vozb=157) 0.93 mmol/L 1.12-1.27 PH, BLOOD (BEAKER) (test cncs=6074) 7.46 BLOOD GAS, [id number] 10:02:00 Test Item Value Reference Range Comments PH ARTERIAL (BEAKER) (test dzaa=142) 7.48 7.35-7.45 PCO2 ARTERIAL (BEAKER) (test rinm=291) 29 mmHg 35-45 PO2 ARTERIAL (BEAKER) (test lmcg=830) 138 mmHg 80-90 O2 SATURATION ARTERIAL (BEAKER) (test yjti=629) 99.0 % 96.0-97.0 HCO3 ARTERIAL (BEAKER) (test tkfd=004) 22 mmol/L 21-29 BASE EXCESS ARTERIAL (BEAKER) (test ucxl=976) -1.1 mmol/L -2.0-3.0 PATIENT TEMPERATURE (BEAKER) (test xhgf=2615) 35.4 C FIO2 (BEAKER) (test ecfu=9489) 50.0 % GLUCOSE-STAT [id number] 10:02:00 Test Item Value Reference Range Comments GLUCOSE RANDOM (BEAKER) (test porg=148) 136 mg/dL 70-110 GLUCOSE-STAT [id number] 09:05:00 Test Item Value Reference Range Comments GLUCOSE RANDOM (BEAKER) (test lkdp=011) 134 mg/dL 70-110 SODIUM NA-STAT [id number] 09:05:00 Test Item Value Reference Range Comments SODIUM (BEAKER) (test seag=909) 134 meq/L 135-148 POTASSIUM-STAT [id number] 09:04:00 Test Item Value Reference Range Comments POTASSIUM (BEAKER) (test aerh=704) 4.1 meq/L 3.6-5.5 HGB/HCT (H&H) - STAT [id number] 09:04:00 Test Item Value Reference Range Comments HEMOGLOBIN (BEAKER) (test xwhy=126) 13.3 g/dL 12.0-15.0 HEMATOCRIT (BEAKER) (test nbln=083) 39.0 % 36.0-45.0 BLOOD GAS, [id number] 09:04:00 Test Item Value Reference Range Comments PH ARTERIAL (BEAKER) (test qikh=840) 7.41 7.35-7.45 PCO2 ARTERIAL (BEAKER) (test rrrs=515) 36 mmHg 35-45 PO2 ARTERIAL (BEAKER) (test vjuv=769) 219 mmHg 80-90 O2 SATURATION ARTERIAL (BEAKER) (test srfp=040) 99.5 % 96.0-97.0 HCO3 ARTERIAL (BEAKER) (test pwdb=227) 22 mmol/L 21-29 BASE EXCESS ARTERIAL (BEAKER) (test scgz=099) -1.4 mmol/L -2.0-3.0 PATIENT TEMPERATURE (BEAKER) (test wggx=8724) 39.5 C FIO2 (BEAKER) (test cqgj=8969) 50.0 % CT, BRAIN, WITHOUT [id number] 06:26:00FINAL REPORT CT, BRAIN, WITHOUT CONTRAST CLINICAL INDICATION: left side weakness COMPARISON: MRI brain January 25, 2019 TECHNIQUE: Noncontrast axial CT imaging of the brain and skull. Coronal and sagittal reformats obtained. DOSE REDUCTION: Dose modulation, iterative reconstruction, and/or weight-based adjustment of the mA/kV was utilized to reduce the radiation dose to as low as reasonably achievable. FINDINGS:Right frontal lobe hypodense 3.8 cm lesion with right to left midline shift of 1.3 cm has developed acute perilesional hemorrhage with extensive surrounding vasogenic edema. There is compression of the right lateral ventricle. Additional hyperdense extra-axial right parafalcine 2.3 cm lesion with punctate calcifications typical of a meningioma is identified. Left temporal horn mild dilatation compatible with entrapment. Calvarium, orbits and paranasal sinuses areunremarkable. Mastoid air cells are clear. IMPRESSION:Anterior parafalcine 3.8 cm hypodense lesion with new perilesional acute hemorrhage, right to left midline shift of 1.3 cm and extensive vasogenic edema. Lesion imaging characteristics are atypical of a meningioma raising the possibility of hypervascular lesion, lymphoma or dural metastasis. CT angiogram head may be of benefit for preprocedure planning. Additional right parafalcine 2.3 cm lesion is typical of a meningioma. Findings discussed withthe patient's care provider, Dr. Mueller neurosurgery, on 2018 6:21 AM. Signed: Bear Campuzano MDReport Verified Date/Time: 01/31/2019 06:26:03 06 :26 [id number] 21:57:00 Test Item Value Reference Range Comments PARTIAL THROMBOPLASTIN TIME (BEAKER) (test 27.3 seconds 22.5-36.0 djiq=354) BASIC METABOLIC [id number] 13:35:00 Test Item Value Reference Range Comments SODIUM (BEAKER) (test 135 meq/L 136-145 naga=960) POTASSIUM (BEAKER) (test 4.5 meq/L 3.5-5.1 Specimen slightly xuoy=020) hemolyzed CHLORIDE (BEAKER) (test 106 meq/L 98-107 bzsu=582) CO2 (BEAKER) (test 23 meq/L 22-29 sxuy=464) BLOOD UREA NITROGEN 23 mg/dL 7-21 (BEAKER) (test nlvk=123) CREATININE (BEAKER) (test 0.54 mg/dL 0.57-1.25 Specimen slightly zdvc=441) hemolyzed GLUCOSE RANDOM (BEAKER) 113 mg/dL 70-105 (test wihs=713) CALCIUM (BEAKER) (test 8.2 mg/dL 8.4-10.2 xvye=312) EGFR (BEAKER) (test 114 mL/min/1.73 sq m ESTIMATED GFR IS NOT zjne=1080) ACCURATE CREATININE CLEARANCE IN PREDICTING GLOMERULAR FILTRATION RATE. ESTIMATED GFR IS NOT APPLICABLE FOR DIALYSIS PATIENTS. PROTHROMBIN [id number] 13:22:00 Test Item Value Reference Range Comments PROTIME (BEAKER) (test klhl=798) 14.0 seconds 11.9-14.2 INR (BEAKER) (test ieim=816) 1.1 <=5.9 Effective 08/10/2018: PT Reference Range ChangeNew: 11.9-14.2 Previous: 11.7- 14.7RECOMMENDED COUMADIN/WARFARIN INR THERAPY RANGESSTANDARD DOSE: 2.0-3.0 Includes: PROPHYLAXIS for venous thrombosis, systemic embolization; TREATMENT for venous thrombosis and/or pulmonary embolus.HIGH RISK: Target INR is2.5-3.5 for patients wiht mechanical heart valves.CBC W/PLT COUNT & AUTO [id number] 13:10:00 Test Item Value Reference Range Comments WHITE BLOOD CELL COUNT (BEAKER) (test sdic=615) 19.7 K/ L 3.5-10.5 RED BLOOD CELL COUNT (BEAKER) (test mlze=205) 4.56 M/ L 3.93-5.22 HEMOGLOBIN (BEAKER) (test mbfy=444) 14.3 GM/DL 11.2-15.7 HEMATOCRIT (BEAKER) (test hsqr=226) 41.6 % 34.1-44.9 MEAN CORPUSCULAR VOLUME (BEAKER) (test hsjq=636) 91.2 fL 79.4-94.8 MEAN CORPUSCULAR HEMOGLOBIN (BEAKER) (test 31.4 pg 25.6-32.2 sjti=250) MEAN CORPUSCULAR HEMOGLOBIN CONC (BEAKER) (test 34.4 GM/DL 32.2-35.5 fvty=827) RED CELL DISTRIBUTION WIDTH (BEAKER) (test 12.8 % 11.7-14.4 drgy=851) PLATELET COUNT (BEAKER) (test pmfp=287) 230 K/CU MM 150-450 MEAN PLATELET VOLUME (BEAKER) (test vvmf=861) 11.8 fL 9.4-12.3 NUCLEATED RED BLOOD CELLS (BEAKER) (test 0 /100 WBC 0-0 nlsk=522) NEUTROPHILS RELATIVE PERCENT (BEAKER) (test 78 % hwzn=421) LYMPHOCYTES RELATIVE PERCENT (BEAKER) (test 11 % sxkn=337) MONOCYTES RELATIVE PERCENT (BEAKER) (test 8 % ibqf=309) EOSINOPHILS RELATIVE PERCENT (BEAKER) (test 0 % rybq=556) BASOPHILS RELATIVE PERCENT (BEAKER) (test 0 % erwo=297) NEUTROPHILS ABSOLUTE COUNT (BEAKER) (test 15.28 K/ L 1.56-6.13 hrni=909) LYMPHOCYTES ABSOLUTE COUNT (BEAKER) (test 2.20 K/ L 1.18-3.74 lxlg=084) MONOCYTES ABSOLUTE COUNT (BEAKER) (test 1.50 K/ L 0.24-0.36 rpqr=069) EOSINOPHILS ABSOLUTE COUNT (BEAKER) (test 0.00 K/ L 0.04-0.36 tgtu=071) BASOPHILS ABSOLUTE COUNT (BEAKER) (test 0.07 K/ L 0.01-0.08 esme=997) IMMATURE GRANULOCYTES-RELATIVE PERCENT (BEAKER) 3 % 0-1 (test cwjq=0344) MR, ABDOMEN, [id number] 17:43:00FINAL REPORT INDICATION:Biliary ductal dilatation on recent CT performed for head and neck cancer. COMPARISON: Abdomen pelvis CT January 25, 2019 TECHNIQUE: MR of the Abdomen with MRCP including 3-D reconstructions. FINDINGS:The patient is status post cholecystectomy. There is extrahepatic biliary ductal dilatation with the proximal common bile duct and mid common bile duct measuring 15 mm in diameter. The distal common bile duct tapers measuring 7 mm in diameter. There is noevidence of choledocholithiasis. The intrahepatic bile ducts are not appreciably dilated. The liver is normal in signal, contour, and size and no liver mass is demonstrated. The pancreas, spleen, adrenal glands, kidneys, and visualized bowel loops are unremarkable. No suspicious marrow replacing lesion demonstrated. IMPRESSION:Prior cholecystectomy with marked extra hepatic biliary ductal dilatation with slight tapering of the distal common bile duct. Findings may be related to increased capacitanceof the biliary system after cholecystectomy. No choledocholithiasis. Signed: Nilton Ulloa MDReport Verified Date/Time: 01/26/2019 17:43:02 Reading Location: [facility] C0Y CT Body Reading Room Electronically signed by: NILTON ULLOA M.D. on 2018 05:43 PMMR, BRAIN, [id number] 22:21:00[facility] protocol for operative planningFINAL REPORT MRI Brain with and without contrast CLINICAL HISTORY: Dizziness,non-specificMass on CT with shift Technique: MRI of the brain utilizing axial T1, T2, FLAIR, GRE, DWI, sagittal T1; and postgadolinium axial, sagittal, and coronal T1-weighted images. Comparisons: Noneavailable Findings:There are two extra-axial enhancing lesions as follows: Right parafalcine extra-axial, avidly enhancing ovoid lesion with restricted water diffusion measures 4.7 x 4.5 x 3.4 cm, with thin dural tail and small peritumoral cysts. There is extensive subjacent vasogenic edema, right to left midline shift of 1 cm with subfalcine herniation and partial compression of the right lateral ventricle. No hydrocephalus. Second right parafalcine well circumscribed lesion demonstrates less avid enhancement and DWI isointensity measuring 2.4 x 2.4 x 2.2 cm, with dural tail. The lesion demonstrates small focus of central T1/T2 hypointensity raising the possibility of calcification but comparison CT is not available. Right centrum semiovale linear DWI hyperintensity measuring 5 x 3 mm without associated enhancement. Additional moderate to severe left periventricular and deep white matter T2 FLAIR hyperintensities, several of which demonstrate T1 hypointensity demonstrating confluent and somewhat ovoid morphology perpendicular to the ventricular margin but nonspecific in appearance. No acute intracranial hemorrhage. Intracranial arterial flow voids at the skull base present. Orbits and globes are within normal limits. Mild paranasal sinus mucosal thickening. Calvarium and mastoid air cells are unremarkable. No destructive osseous lesion identified. IMPRESSION : There are two right parafalcineextra-axial masses measuring 4.7 x 4.5 x 3.4 cm and 2.4 x 2.4 x 2.2 cm consistent with neoplasia. The lesions demonstrate different signal characteristics raising the possibility of different histopathology. Primary considerations include meningioma and dural based metastasis. Avid DWI hyperintensity within the dominant lesion raises the possibility of lymphoma. Tissue sampling is advised. Right cerebral hemisphere extensive vasogenic edema with xqoed-ky-mevw midline shift of 1 cm. Right centrum semiovale 5 x 3 mm DWI hyperintense lesion suggestive of acute ischemic infarct. Additional nonspecific white matter T2 FLAIR hyperintensities are typically attributed to chronic microangiopathy ischemic changes but morphology raises the possibility of demyelinating plaques, only in the appropriate clinical setting. Signed: Bear Campuzano MDReport Verified Date/Time: 2018 22:21:30 Electronically signed by: BEAR CAMPUZANO MD on 2018 10:21 PMCT, CHEST, [id number] 17:33:00FINAL REPORT CT scan of the chest, abdomen and pelvis. MEDICAL HISTORY: Neoplasm of head and neck. COMPARISON STUDY: None available. TECHNIQUE: Contiguous helical slices were acquired through the chest, abdomen and pelvis posted ministration of intravenous and oral contrast. This exam was performed according to our department dose optimization program which includes automated exposure control, adjustment of the mA and/or kV according to the patient's size and/or use of iterative reconstruction technique. FINDINGS: The mediastinum demonstrates trace pericardial fluid measuring5 mm. No suspicious masses or adenopathy are seen. There are no pleural effusions. The tracheobronchial tree is clear with no endobronchial lesions. The pulmonary parenchyma demonstrates bibasilar atelectasis or consolidation. A 1 mm nodule is seen in the right lower lobe on image 35. The liver demonstrates no focal masses. There is severe intra and extra hepatic biliary dilatation with the CBD measuring 1.8 cm. Cholecystectomy clips are seen. The spleen, pancreas, adrenal glands and kidneys are unremarkable. There are no dilated loops of bowel seen to suggest obstruction. A normal appendix is seen. No free fluid or free air is seen. Small retroperitoneal lymph nodes are present. The aorta is normal in caliber. Atherosclerosis is seen. Bone windows demonstrate degenerative changes. Diffuse sclerosis of T12 is seen for which metastatic disease cannot be excluded. IMPRESSION:1. Diffuse cholecystitis of T12 for which metastatic disease cannot be excluded. Other potential etiologies include Paget'sdisease. Correlation with bone scan could be made.2. Severe intra and extra hepatic biliary dilatation. A distal biliary stricture cannot be excluded. Choledocholithiasis would also be possible. In addition with MRCP is recommended. The gallbladder has been resected. 3. 1 mm lung nodule which could bereassessed on future follow -up imaging.4. No other definite sites suspicious for metastatic disease.Signed : Pipe Uribe MDReport Verified Date/Time: 01/25/2019 17:33:44 Reading Location: [facility] C013Y CT Body Reading Room CT, [id number] 17:33:00FINAL REPORT CT scan of the chest, abdomen and pelvis. MEDICAL HISTORY: Neoplasm of head and neck. COMPARISON STUDY: None available. TECHNIQUE : Contiguous helical slices were acquired through the chest, abdomen and pelvis posted ministration of intravenous and oral contrast. This exam was performed according to our department dose optimization program which includes automated exposure control, adjustment of the mA and/or kV according to the patient's size and/or use of iterative reconstruction technique. FINDINGS: The mediastinum demonstrates trace pericardial fluid measuring5 mm. No suspicious masses or adenopathy are seen. There are no pleural effusions. The tracheobronchial tree is clear with no endobronchial lesions. The pulmonary parenchyma demonstrates bibasilar atelectasis or consolidation. A 1 mm nodule is seen in the right lower lobe on image 35. The liver demonstrates no focal masses. There is severe intra and extra hepatic biliary dilatation with the CBD measuring 1.8 cm. Cholecystectomy clips are seen. The spleen, pancreas, adrenal glands and kidneys are unremarkable. There are no dilated loops of bowel seen to suggest obstruction. A normal appendix is seen. No free fluid or free air is seen. Small retroperitoneal lymph nodes are present. The aorta is normal in caliber. Atherosclerosis is seen. Bone windows demonstrate degenerative changes. Diffuse sclerosis of T12 is seen for which metastatic disease cannot be excluded. IMPRESSION:1. Diffuse cholecystitis of T12 for which metastatic disease cannot be excluded. Other potential etiologies include Paget'sdisease. Correlation with bone scan could be made.2. Severe intra and extra hepatic biliary dilatation. A distal biliary stricture cannot be excluded. Choledocholithiasis would also be possible. In addition with MRCP is recommended. The gallbladder has been resected. 3. 1 mm lung nodule which could bereassessed on future follow-up imaging.4. No other definite sites suspicious for metastatic disease.Signed: Pipe Uribe MDReport Verified Date/Time: 17:33:44 Reading Location: [facility] C0Y CT Body Reading Room VITAMIN B12 AND [id number] 08:41:00 Test Item Value Reference Range Comments VITAMIN B12 (BEAKER) (test utdc=553) 1496 pg/mL 213-816 FOLATE (SAFE ID SolutionsAKER) (test ywex=928) 18.6 ng/mL >=7.0 CBC W/PLT COUNT & AUTO [id number] 08:21:00 Test Item Value Reference Range Comments WHITE BLOOD CELL COUNT (BEAKER) (test dixd=393) 8.6 K/ L 3.5-10.5 RED BLOOD CELL COUNT (BEAKER) (test gnek=577) 4.15 M/ L 3.93-5.22 HEMOGLOBIN (BEAKER) (test wtma=687) 12.9 GM/DL 11.2-15.7 HEMATOCRIT (BEAKER) (test nhjv=820) 38.2 % 34.1-44.9 MEAN CORPUSCULAR VOLUME (BEAKER) (test gsyk=439) 92.0 fL 79.4-94.8 MEAN CORPUSCULAR HEMOGLOBIN (BEAKER) (test 31.1 pg 25.6-32.2 adwq=654) MEAN CORPUSCULAR HEMOGLOBIN CONC (BEAKER) (test 33.8 GM/DL 32.2-35.5 mvvr=943) RED CELL DISTRIBUTION WIDTH (BEAKER) (test 12.5 % 11.7-14.4 biur=492) PLATELET COUNT (BEAKER) (test nxjr=050) 208 K/CU MM 150-450 MEAN PLATELET VOLUME (BEAKER) (test mhgn=027) 12.0 fL 9.4-12.3 NUCLEATED RED BLOOD CELLS (BEAKER) (test 0 /100 WBC 0-0 vbaw=046) NEUTROPHILS RELATIVE PERCENT (BEAKER) (test 81 % mdtf=770) LYMPHOCYTES RELATIVE PERCENT (BEAKER) (test 18 % brfi=440) MONOCYTES RELATIVE PERCENT (BEAKER) (test 1 % gget=838) EOSINOPHILS RELATIVE PERCENT (BEAKER) (test 0 % xlnp=054) BASOPHILS RELATIVE PERCENT (BEAKER) (test 0 % utnh=731) NEUTROPHILS ABSOLUTE COUNT (BEAKER) (test 6.92 K/ L 1.56-6.13 gnes=539) LYMPHOCYTES ABSOLUTE COUNT (BEAKER) (test 1.50 K/ L 1.18-3.74 vkez=042) MONOCYTES ABSOLUTE COUNT (BEAKER) (test 0.09 K/ L 0.24-0.36 yuop=037) EOSINOPHILS ABSOLUTE COUNT (BEAKER) (test 0.00 K/ L 0.04-0.36 unvh=990) BASOPHILS ABSOLUTE COUNT (BEAKER) (test 0.01 K/ L 0.01-0.08 qesp=384) IMMATURE GRANULOCYTES-RELATIVE PERCENT (BEAKER) 0 % 0-1 (test vhkn=9068) COMPREHENSIVE METABOLIC [id number] 07:18:00 Test Item Value Reference Range Comments TOTAL PROTEIN (BEAKER) 7.3 gm/dL 6.0-8.3 Specimen slightly (test jvou=592) hemolyzed ALBUMIN (BEAKER) (test 3.8 g/dL 3.5-5.0 Specimen slightly nzqm=0719) hemolyzed ALKALINE PHOSPHATASE 49 U/L 40-150 (BEAKER) (test dhfp=464) BILIRUBIN TOTAL (BEAKER) 0.3 mg/dL 0.2-1.2 Specimen slightly (test utuw=575) hemolyzed SODIUM (BEAKER) (test 138 meq/L 136-145 qswv=159) POTASSIUM (BEAKER) (test 3.7 meq/L 3.5-5.1 Specimen slightly pmur=105) hemolyzed CHLORIDE (BEAKER) (test 111 meq/L 98-107 ywfe=849) CO2 (BEAKER) (test 20 meq/L 22-29 sqkb=374) BLOOD UREA NITROGEN 18 mg/dL 7-21 (BEAKER) (test wxlr=950) CREATININE (BEAKER) (test 0.62 mg/dL 0.57-1.25 Specimen slightly tdod=961) hemolyzed GLUCOSE RANDOM (BEAKER) 162 mg/dL 70-105 (test aytk=509) CALCIUM (BEAKER) (test 8.1 mg/dL 8.4-10.2 jrgw=727) AST (SGOT) (BEAKER) (test 16 U/L 5-34 Specimen slightly ramg=321) hemolyzed ALT (SGPT) (BEAKER) (test 15 U/L 6-55 Specimen slightly wuii=955) hemolyzed EGFR (BEAKER) (test 97 mL/min/1.73 sq m ESTIMATED GFR IS NOT wxiw=8437) ACCURATE CREATININE CLEARANCE IN PREDICTING GLOMERULAR FILTRATION RATE. ESTIMATED GFR IS NOT APPLICABLE FOR DIALYSIS PATIENTS. TSH/FREE T4 IF [id number] 07:11:00 Test Item Value Reference Range Comments THYROID STIMULATING HORMONE (BEAKER) (test 0.39 uIU/mL 0.35-4.94 rvfk=544) PROTHROMBIN TIME/[id number] 06:48:00 Test Item Value Reference Range Comments PROTIME (BEAKER) (test aoon=214) 14.6 seconds 11.9-14.2 INR (BEAKER) (test tlce=546) 1.2 <=5.9 Effective 08/10/2018: PT Reference Range ChangeNew: 11.9-14.2 Previous: 11.7- 14.7RECOMMENDED COUMADIN/WARFARIN INR THERAPY RANGESSTANDARD DOSE: 2.0-3.0 Includes: PROPHYLAXIS for venous thrombosis, systemic embolization; TREATMENT for venous thrombosis and/or pulmonary embolus.HIGH RISK: Target INR is2.5-3.5 for patients wiht mechanical heart valves.
[2019-02-16] MEDS ORDERED: POLYETHYL GLY 3350 17 GM/DOSE PO PRN (00:46)
[2019-02-16] MEDS ORDERED: CEPACOL LOZENGES PO PRN (00:46)
[2019-02-16 06:57] LABS: BUN Blood Urea Nitrogen 31 mg/dL (7-18); Bicarbonate 28 mmol/L (21-32); Glucose Level 109 mg/dL (74-106); Sodium Level 141 mmol/L (136-145)
[2019-02-16] MEDS ORDERED: INFLUENZA VACCINE (for 3y+) 0.5 ML DOSE IMVAC ONE (08:00)
[2019-02-16] MEDS ORDERED: AMLODIPINE 10 MG TAB PO SCH (08:00)
[2019-02-16] MEDS: SODIUM CHLORIDE 1 GM TAB PO SCH ×3 (08:42→16:57)
[2019-02-16] MEDS: AMLODIPINE 10 MG TAB PO SCH (15:00)
--- NOTE | 2019-02-16 15:43 | FAST ---
ENCOUNTER DATE AND TIME: 02/16/2019 08:00 (COMMUNICATIONS DESIGNER) NAME GLENN WALKER DATE OF : 1955 DATE OF ADMISSION: 02/15/2019 23:31 (COMMUNICATIONS DESIGNER) PHONE: AGE: 63 N# [id number] GENDER: Female ENCOUNTER PHYSICIAN: Dr. Sawyer Rios M.D. ADMISSION DIAGNOSIS: - Stroke 01 - Left Body (Right Brain) (01.1) right centrum semivola 5x3 mm DWI hypertintense lesion suggestive of acute ischemic infarct. ROLL LEFT AND RIGHT: ROLL LEFT AND RIGHT - STEP 1: Does the patient complete the activity by him/herself with no assistance (physical, verbal/nonverbal cueing, setup/clean-up)? No. ROLL LEFT AND RIGHT - STEP 2: Does the patient need only setup/clean-up assistance from one helper? No. ROLL LEFT AND RIGHT - STEP 3: Does the patient need only verbal/nonverbal cueing or touching/steadying/contact guard assistance fro m one helper? No. ROLL LEFT AND RIGHT - STEP 4: Does the patient need physical assistance - for example lifting or trunk support from one helper - wi th the helper providing less than half of the effort? No. ROLL LEFT AND RIGHT - STEP 5: Does the patient need physical assistance - for example lifting or trunk support from one helper - wi th the helper providing more than half of the effort? Yes. 1. [id number] ADMISSION PERFORMANCE: Substantial/maximal assistance CODE: 02 SIT TO LYING: SIT TO LYING - STEP 1: Does the patient complete the activity by him/herself with no assistance (physical, verbal/nonverbal cueing, setup/clean-up)? No. SIT TO LYING - STEP 2: Does the patient need only setup/clean-up assistance from one helper? No. SIT TO LYING - STEP 3: Does the patient need only verbal/nonverbal cueing or touching/steadying/contact guard assistance fro m one helper? No. SIT TO LYING - STEP 4: Does the patient need physical assistance - for example lifting or trunk support from one helper - wi th the helper providing less than half of the effort? No. SIT TO LYING - STEP 5: Does the patient need physical assistance - for example lifting or trunk support from one helper - wi th the helper providing more than half of the effort? Yes. 1. [id number] ADMISSION PERFORMANCE: Substantial/maximal assistance CODE: 02 LYING TO SITTING: LYING TO SITTING ON SIDE OF BED - STEP 1: Does the patient complete the activity by him/herself with no assistance (physical, verbal/nonverbal cueing, setup/clean-up)? No. LYING TO SITTING ON SIDE OF BED - STEP 2: Does the patient need only setup/clean-up assistance from one helper? No. LYING TO SITTING ON SIDE OF BED - STEP 3: Does the patient need only verbal/nonverbal cueing or touching/steadying/contact guard assistance fro m one helper? No. LYING TO SITTING ON SIDE OF BED - STEP 4: Does the patient need physical assistance - for example lifting or trunk support from one helper - wi th the helper providing less than half of the effort? No. LYING TO SITTING ON SIDE OF BED - STEP 5: Does the patient need physical assistance - for example lifting or trunk support from one helper - wi th the helper providing more than half of the effort? Yes. 1. [id number] ADMISSION PERFORMANCE: Substantial/maximal assistance CODE: 02 SIT TO STAND: SIT TO STAND - STEP 1: Does the patient complete the activity by him/herself with no assistance (physical, verbal/nonverbal cueing, setup/clean-up)? No. SIT TO STAND - STEP 2: Does the patient need only setup/clean-up assistance from one helper? No. SIT TO STAND - STEP 3: Does the patient need only verbal/nonverbal cueing or touching/steadying/contact guard assistance fro m one helper? No. SIT TO STAND - STEP 4: Does the patient need physical assistance - for example lifting or trunk support from one helper - wi th the helper providing less than half of the effort? No. SIT TO STAND - STEP 5: Does the patient need physical assistance - for example lifting or trunk support from one helper - wi th the helper providing more than half of the effort? Yes. 1. [id number] ADMISSION PERFORMANCE: Substantial/maximal assistance CODE: 02 TRANSFERS: BED, CHAIR: CHAIR/[id number] TRANSFER - STEP 1: Does the patient complete the activity by him/herself with no assistance (physical, verbal/nonverbal cueing, setup/clean-up)? No. CHAIR/[id number] TRANSFER - STEP 2: Does the patient need only setup/clean-up assistance from one helper? No. CHAIR/[id number] TRANSFER - STEP 3: Does the patient need only verbal/nonverbal cueing or touching/steadying/contact guard assistance fro m one helper? No. CHAIR/[id number] TRANSFER - STEP 4: Does the patient need physical assistance - for example lifting or trunk support from one helper - wi th the helper providing less than half of the effort? No. CHAIR/WIG-DG-SONYO TRANSFER - STEP 5: Does the patient need physical assistance - for example lifting or trunk support from one helper - wi th the helper providing more than half of the effort? Yes. 1. [id number] ADMISSION PERFORMANCE: Substantial/maximal assistance CODE: 02 TRANSFER TOILET: TOILET TRANSFER - STEP 1: Does the patient complete the activity by him/herself with no assistance (physical, verbal/nonverbal cueing, setup/clean-up)? No. TOILET TRANSFER - STEP 2: Does the patient need only setup/clean-up assistance from one helper? No. TOILET TRANSFER - STEP 3: Does the patient need only verbal/nonverbal cueing or touching/steadying/contact guard assistance fro m one helper? No. TOILET TRANSFER - STEP 4: Does the patient need physical assistance - for example lifting or trunk support from one helper - wi th the helper providing less than half of the effort? No. TOILET TRANSFER - STEP 5: Does the patient need physical assistance - for example lifting or trunk support from one helper - wi th the helper providing more than half of the effort? Yes. 1. [id number] ADMISSION PERFORMANCE: Substantial/maximal assistance CODE: 02 TRANSFERS: CAR: Not attempted due to environmental limitations (e.g., lack of equipment, weather constraints) CODE: 10 WALK 10 FEET: Not attempted due to medical condition or safety concerns CODE: 88 1 STEP (CURB): Not attempted due to medical condition or safety concerns CODE: 88 PICKING UP OBJECT: Not attempted due to medical condition or safety concerns CODE: 88 DOES THE PATIENT USE A WHEELCHAIR/SCOOTER? Q1. DOES THE PATIENT USE A WHEELCHAIR/SCOOTER?: Yes CODE: 1 WHEEL 50 FEET WITH TWO TURNS: Not attempted due to medical condition or safety concerns CODE: 88 INDICATE THE TYPE OF WHEELCHAIR/SCOOTER USED: CODE: EXPR WHEEL 150 FEET: Not attempted due to medical condition or safety concerns CODE: 88 INDICATE THE TYPE OF WHEELCHAIR/SCOOTER USED: CODE: EXPR BLADDER AND BOWEL: CODE: EXPR CODE: EXPR SIGNATURE PANEL: The following modified sections: 1. [id number] Admission Performance, 1. [id number] Admission Performance, 1. [id number] Admission Performance, 1. [id number] Admission Performance, 1. [id number] Admission Performance, 1. [id number] Admission Performance, Q1. Does the patient use a wheelchair/scooter?, Code were [electro nically] signed by Marck Simon, JEANNIE on WedFeb 16 2019 15:43:25 GMT-0600 (Central Standard Time)
--- NOTE | 2019-02-16 18:34 | R.HP ---
FACILITY: [facility] ENCOUNTER DATE AND TIME: 02/16/2019 18:29 (MD ALLERGY IMMUNOLOGY) MR#: [id number] NAME GLENN WALKER ADDRESS: [address] [place] [address] CITY: [place] [address]IP [id number] PHONE: DATE OF : 1955 AGE: 63 SSN# [id number] GENDER: Female DEXTERITY Right-handed MARITAL STATUS RACE PRE-HOSPITAL LIVING SETTING 01 - Home (private home/apt. board/care, assisted living, half-way, transitional living) PRE-HOSPITAL LIVING WITH Alone ENCOUNTER PHYSICIAN: Dr. Sawyer Rios M.D. REFERRING DOCTOR: Krissy Mendenhall DATE OF ADMISSION: 02/15/2019 23:31 (MD ALLERGY IMMUNOLOGY) REFERRING FACILITY [facility] HOME TYPE AND DETAILS: Type of home: single family house # of steps to enter the residence: 0 # of steps within the residence: 0 # of levels in the residence: 1 ADMISSION DIAGNOSIS: right centrum semivola 5x3 mm DWI hypertintense lesion suggestive of acute ischemic infarct ONSET DATE: 01/25/2019 PRIMARY DIAGNOSIS-RELATED SURGERIES: No surgeries related to the primary diagnosis were performed. 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 is a 63 yo Right-handed female. On 01/25/2019 Pt. presented to [facility] with sudden onset of left-side w eakness. On 01/25/2019 she was admitted to [facility] with diagnosis right centrum semivola 5x3 mm DWI hypertintense lesion suggestive of acute ischemic infarct. Her impairment category is Stroke 01 - Left Body (Right Brain) (01.1). Pre-morbidly, Pt. was independent/mod-I in Locomotion, Endurance, Self-Care, Balance, Transfers Contr ol, Safety Awareness, Communication, and Safety Awareness and Self-Care; and she had good Sphincter C ontrol. Currently, she has deficits of Locomotion, Self-Care, Endurance, Balance, Transfers Control, Safety A wareness, Social Cognition, Ambulation, Communication, and Sphincter Control. Pt. is now referred to [facility] for acute in-patient rehabilitation in order to maximize patient's functional independence in activities of daily living, strength, ROM, and mobi lity. Patient has realistic goal of being discharged at assistance level 6-Danielle to reside at Home with Fam adriana/Relatives. 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 SOCIAL HISTORY: - Home Living Alone REVIEW OF SYSTEMS: - Gen No Chills Fatigue No Fever - Eyes No Double Vision No itchiness - ENMT Difficulty Swallowing - CVS No Chest Discomfort No Chest Pain Fatigue No Weight Gain - Resp No Cough No Shortness of Breath - GI Continent No Abdominal Pain No Constipation No Diarrhea - Continent No Kidney Pain No Painful Urination No Urinary Urgency - MSK No Joint Pain Muscle Cramps Stiffness - Skin No Itching No Rash No Suspicious Lesions - Neuro Coordination Difficulty No Difficulty with Concentration No Memory Loss No Seizures Weakness - Psych No Anxiety No Depression No HIV Exposure No Persistent Infections No Seasonal Allergies - Endo No Cold/Heat Intolerance No Excessive Hunger No Excessive Thirst No Excessive Urination PHYSICAL EXAM - Gen Alert and awake Lying in bed No apparent distress Oriented to: person, time, and place - Skin No breakdown Normacephalic - Eyes No abnormalities - ENMT No abnormalities - Neck No abnormalities - CVS RRR - Chest Clear - Abd Soft - GI Non distended Deferred - No abnormalities - Ext No significant edema - MSK 4/5 weakness in both lower extremities. - Neuro 2/5 strength left upper extremity. 4/5 weakness in both lower extremities. - Psych No abnormalities VITAL SIGNS Temperature: 97.4 F SBP/DBP: 113/54 Pulse: 76 Resp: 18 NURSING: - Shower allowing shower - Bladder care per protocol - Skin care per protocol PRECAUTIONS: - Weight Bearing Precaution WBAT left LE - Fall Precaution Bed alarm TABS alarm Wheel chair alarm ACTIVITIES OOB only with supervision QI SCORES: - Self-Care A. Eating 04-Supervision or touching assistance B. Oral hygiene 04-Supervision or touching assistance C. Toileting hygiene 01-Dependent E. Shower/bathe self 88-Not attempted due to medical condition or safety concerns F. Upper body dressing 02-Substantial/maximal assistance G. Lower body dressing 01-Dependent H. Putting on/taking off footwear 01-Dependent - Mobility A. Roll left and right 01-Dependent B. Sit to lying 02-Substantial/maximal assistance C. Lying to sitting on side of bed 01-Dependent D. Sit to stand 88-Not attempted due to medical condition or safety concerns E. Chair/[id number]-ttsqo transfer 01-Dependent F. Toilet transfer 01-Dependent G. Car transfer 88-Not attempted due to medical condition or safety concerns I. Walk 10 feet 88-Not attempted due to medical condition or safety concerns J. Walk 50 feet with two turns 88-Not attempted due to medical condition or safety concerns K. Walk 150 feet 88-Not attempted due to medical condition or safety concerns L. Walking 10 feet on uneven surfaces 88-Not attempted due to medical condition or safety concerns M. 1 step (curb) 88-Not attempted due to medical condition or safety concerns N. 4 steps 88-Not attempted due to medical condition or safety concerns O. 12 steps 88-Not attempted due to medical condition or safety concerns P. Picking up object 88-Not attempted due to medical condition or safety concerns R. Wheel 50 feet with two turns 88-Not attempted due to medical condition or safety concerns S. Wheel 150 feet 88-Not attempted due to medical condition or safety concerns - Bladder and Bowel Bladder continence 4-Always incontinent Bowel continence 3-Always incontinent - Endurance Poor - Balance Poor - Safety Awareness Poor CURRENT FUNC. DEFICITS: Self-Care, Mobility, Endurance, Balance, and Safety Awareness MEDICATIONS: - Other See attached MAR (Medication Administration Record) ASSESSMENT: Pt. is a 63 yo Right-handed female.On 01/25/2019 Pt. presented to [facility] with sudden onset of left-side weakness.On 01/25/2019 she was admitted to [facility] with diagnosis right centrum semivola 5x3 mm DWI hypertintense lesion suggesti ve of acute ischemic infarct.Her impairment category is Stroke 01 - Left Body (Right Brain) (01.1).P re-morbidly, Pt. was independent/mod-I in Locomotion, Endurance, Self-Care, Balance, Transfers Contro l, Safety Awareness, Communication, and Safety Awareness and Self-Care; and she had good Sphincter Co ntrol.Currently, she has deficits of Locomotion, Self-Care, Endurance, Balance, Transfers Control, Sa fety Awareness, Social Cognition, Ambulation, Communication, and Sphincter Control.Pt. is now referre d to [facility] for acute in-patient rehabilitation in order to maximize patie nt's functional independence in activities of daily living, strength, ROM, and mobility.- Rehab Goal Patient has realistic goal of being discharged at assistance level 6-Danielle to reside at Home with Fam adriana/Relatives. for Dementia, TBI, Stroke, or others - Physical Therapy Gait dysfunction - to improve, our physical therapists will perform initial evaluation of pt's status upon admission and devise an individualized program for Gait Training, and Wheel Chair mobility Inability to transfer - to improve, our physical therapists will perform initial evaluation of pt's s tatus upon admission and devise an individualized program for Bed mobility Need for home safety evaluation - to improve, our physical therapists will perform initial evaluation of pt's status upon admission and devise an individualized program for Home Evaluation Need in caregiver upon discharge - to improve, our physical therapists will perform initial evaluatio n of pt's status upon admission and devise an individualized program for Caregiver Training New precaution - to improve, our physical therapists will perform initial evaluation of pt's status u jakob admission and devise an individualized program for Patient precaution education Edema - to improve, our physical therapists will perform initial evaluation of pt's status upon admi ssion and devise an individualized program for Elevation Training, and Lymphedema Therapy Poor balance - to improve, our physical therapists will perform initial evaluation of pt's status upo n admission and devise an individualized program for Balance Training Poor endurance - to improve, our physical therapists will perform initial evaluation of pt's status u jakob admission and devise an individualized program for Endurance Training Weakness - to improve, our physical therapists will perform initial evaluation of pt's status upon ad mission and devise an individualized program for Aquatic Therapy, Neuromuscular Reeducation, and Stre ngthening Achieving independence - to improve, our physical therapists will perform initial evaluation of pt's status upon admission and devise an individualized program for Community Reintegration Activities - Occupational Therapy ADL deficits - to improve, our occupation therapists will perform initial evaluation of pt's status u jakob admission and devise an individualized program for Bathing, Bed mobility, Community Reintegration , Cooking, Dressing, Eating, Fine Motor Skills, Grooming, Homemaking, Kitchen Mobility, Laundry, Kayli ent Education, Safety Awareness, Splinting - Positioning, Transfers(Toilet, Tub, Shower), and Wheel C hair Management Cognitive deficits - to improve, our occupation therapists will perform initial evaluation of pt's st atus upon admission and devise an individualized program for Cognition - orientation Need for acute care nurse practitioner - to improve, our occupation therapists will perform initial evaluation of pt's s tatus upon admission and devise an individualized program for Caregiver Training Weakness - to improve, our occupation therapists will perform initial evaluation of pt's status upon admission and devise an individualized program for Aquatic Therapy, Balance, Endurance, UE ROM, and U E strengthening MEDICAL PLAN: - Diet Type Start Regular - Diet - Liquid Texture Start Regular - Tube Feed Start N/A - Bladder care per protocol - Weight Bearing Precaution WBAT left LE - Fall Precaution Bed alarm TABS alarm Wheel chair alarm - Skin care per protocol - Other See attached MAR (Medication Administration Record) - Diet - Solid Texture Regular - Shower shower DISCHARGE PLAN: - Estimated Length of Stay (days) 17. - Consensus on plan Discharge plan has been discussed with primary caregiver. Patient/Family is in agreement with the gavino n. Primary caregiver is in agreement with the plan. - Patient/Family Goals Return home with assistance. - Planned Living Setting Upon Discharge Home, to live alone. SIGNATURE PANEL: (MD ALLERGY IMMUNOLOGY)
--- NOTE | 2019-02-16 18:35 | PAPE ---
PATIENT: [facility] MR# [id number] REFERRING DOCTOR Krissy Mendenhall EVALUATION DATE AND TIME 02/16/2019 18:34 (BEACH PATROL LIEUTENANT) NAME GLENN WALKER DATE OF 1955 AGE 63 PHONE N# [id number] GENDER female EVALUATING PHYSICIAN Dr. Sawyer Rios M.D. 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) Nontraumatic intracranial hemorrhage, unspecified (I62.9) Cerebral edema (G93.6) Neoplasm of unspecified behavior of brain (D49.6) Other abnormal findings on diagnostic imaging of central nervous system (R90.89) Other symptoms and signs involving the musculoskeletal system (R29.898) Other specified disorders of brain (G93.89) - N/A Leukocytosis ANEMIA biliary ductal dilation possible cerebral amyloid CONSTIPATION POST-ADMISSION FUNCTIONAL/MEDICAL STATUS: - Bladder Same accident frequency: Ind - No accidents in the past 7 days - Bowel Same accident frequency: Ind - No accidents in the past 7 days - Walking Same score based on distance walked: 1(<=50ft) - Wheelchair Same score based on distance traveled: 1(<=50ft) STATUS CHANGE EVALUATION: No change in Functional or Medical Status is identified compared with Pre-Admission screening. PATIENT NEEDS CLOSE MEDICAL SUPERVISION BY A REHABILITATION PHYSICIAN FOR: Coordination of Treatment Team Medical and Co-Morbidity Management Wound Care PATIENT REQUIRES 24X7 REHAB NURSING FOR MEDICAL AND FUNCTIONAL MGT. OF THE FOLLOWING DEFICITS: Disease Management Medication Management Patient/Family Education Providing Safe Environment Skin Integrity PATIENT REQUIRES INTENSIVE, COORDINATED INTERDISCIPLINARY APPROACH TO REHAB: Arranging Home Equipment/Services Discharge Planning Family Intervention/Training Rescue Boat Operator/Case Management LIST OF IDENTIFIED AND POTENTIAL PROBLEMS: Alteration in leisure activities Bladder, Incontinence Bowel, Constipation Bowel, Incontinence Falls, Actual or Potential Infection, Actual or Potential Mobility Impaired Pain, Alteration in Comfort Self Care Deficit Skin Integrity, Actual or Potential Urinary Tract Infection (UTI), Actual or Potential PATIENT COULD BE AT RISK FOR COMPLICATIONS FROM ADVERSE MEDICAL CONDITIONS DUE TO HIS/HER COMORBIDITI ES AND THE RIGORS OF THE INTENSIVE REHABILLITATION PROGRAM. METHODS OR INTERVENTIONS TO AVOID COMPLIC ATIONS INCLUDE: - Bleeding Assess lab values and manage abnormalities. Nursing to teach precautions for anti-coagulation therapy . Stroke patients assessed for lethargy or change in status. Wound to be assessed every shift. - Infection Clinical staff to assess and manage the signs and symptoms of infection including fever, redness, war mth, etc. - Urinary Tract Infection - Aspiration Clinical staff will assess and manage coughing, drooling, congestion. - Falls Patient will be evaluated for Fall Precautions and will be placed on Fall Precautions as indicated pe r protocol. - Skin Breakdown Nursing will assess skin daily using assessment tool and will place on Skin Breakdown Precautions as indicated per protocol. - Pain Clinical staff may employ non-medication methods such as massage, distraction, decrease stimulus, etc . as needed. Clinical staff will assess patient's pain level every shift per protocol to assess and e nsure pain management effectiveness. Medications will be given and the pain level re-assessed. PRELIMINARY PLAN OF CARE: - Physical Therapy Patient needs Physical Therapy for a daily minimum of 1.5 hours at least 5 out of 7 days, to improve: Mobility, Strengthening, Transfers, Stretching, ROM, Endurance, Ability to manage stairs, Gait, and Balance. - Speech Therapy Patient needs Speech Therapy for a daily minimum of 0.5 hours at least 5 out of 7 days, to improve: S wallowing, Cognition, Language Skills, and Compensatory Strategies. - Rehabilitation Nursing Patient requires 24x7 Rehabilitation Nursing for: Pain Issues, Identifying and preventing risk factor s, Monitoring and reporting current medical conditions, Assisting with ambulation and transfer, Kassie ting with all ADL-s, Teaching patients about disease process and medications, Family teaching, Provid ing safe environment, Bowel and Bladder Issues, Skin Integrity, and Medication Management. Patient needs Rescue Boat Operator and/or Case Management for: Discharge Planning, Arranging Home Equipmen t or Services, and Family Interventions. - Dietary and Nutrition Services Patient needs Dietary and Nutrition Services for: Adequate Nutrition, Nutritional Supplements, and Nu tritional Education. - Occupational Therapy Patient needs Occupational Therapy for a daily minimum of 1.5 hours at least 5 out of 7 days, to impr ove Activities of Daily Living, including: Eating, Grooming, Bathing, Dressing, Toileting, Toilet Tra nsfers, Community Reintegration, Higher functional activities, Adaptive Equipment, Splinting, Househo ld Tasks, and Other activities as determined. QI SCORES: - Self-Care A. Eating 04-Supervision or touching assistance B. Oral hygiene 04-Supervision or touching assistance C. Toileting hygiene 01-Dependent E. Shower/bathe self 88-Not attempted due to medical condition or safety concerns F. Upper body dressing 02-Substantial/maximal assistance G. Lower body dressing 01-Dependent H. Putting on/taking off footwear 01-Dependent - Mobility A. Roll left and right 01-Dependent B. Sit to lying 02-Substantial/maximal assistance C. Lying to sitting on side of bed 01-Dependent D. Sit to stand 88-Not attempted due to medical condition or safety concerns E. Chair/vlf-st-[id number] transfer 01-Dependent F. Toilet transfer 01-Dependent G. Car transfer 88-Not attempted due to medical condition or safety concerns I. Walk 10 feet 88-Not attempted due to medical condition or safety concerns J. Walk 50 feet with two turns 88-Not attempted due to medical condition or safety concerns K. Walk 150 feet 88-Not attempted due to medical condition or safety concerns L. Walking 10 feet on uneven surfaces 88-Not attempted due to medical condition or safety concerns M. 1 step (curb) 88-Not attempted due to medical condition or safety concerns N. 4 steps 88-Not attempted due to medical condition or safety concerns O. 12 steps 88-Not attempted due to medical condition or safety concerns P. Picking up object 88-Not attempted due to medical condition or safety concerns R. Wheel 50 feet with two turns 88-Not attempted due to medical condition or safety concerns S. Wheel 150 feet 88-Not attempted due to medical condition or safety concerns - Bladder and Bowel Bladder continence 4-Always incontinent Bowel continence 3-Always incontinent - Endurance Poor - Balance Poor - Safety Awareness Poor POTENTIAL FUNCTIONAL GOALS FOR PATIENT TO ACHIEVE BY DISCHARGE: - Safety Precaution Patient will remain free from falls or injury at time of discharge. - Bed Mobility Patient will perform bed mobility at 4-Paresh level of assistance. - Transfers Patient will complete transfers from bed to chair at 4-Paresh level of assistance. - Mobility Patient will ambulate 150 ft with 4-Paresh level of assistance with RW. PATIENT REHAB POTENTIAL Ephraim WALKER is able and expected to receive 3 hours of individualized therapy daily on at least 5 of e very 7 days Ephraim MOOREENO's prognosis for significant practical improvement within a reasonable period of time appea rs Good Expected level of measurable improvement will be of a practical value to Ephraim WALKER's functional capa city or adaptations to impairments Has a viable Discharge Plan Medically appropriate; condition is sufficiently stable to participate in intensive rehab program DISCHARGE PLAN: - Estimated Length of Stay (days) 17. - Consensus on plan Discharge plan has been discussed with primary caregiver. Patient/Family is in agreement with the gavino n. Primary caregiver is in agreement with the plan. - Patient/Family Goals Return home with assistance. - Planned Living Setting Upon Discharge Home, to live alone. CONCLUSION ON REHABILITATION NECESSITY: I have evaluated patient's pre-admission functional status and, comparing it to the patient's post-ad mission functional status now, I conclude that the pre-admission assessment was accurate. Patient's c ondition on admission supports the medical necessity of admission to IR[facility]. It is safe to proceed with patient's therapy program. SIGNATURE PANEL: (BEACH PATROL LIEUTENANT)
[2019-02-16] MEDS: NYSTATIN PWDR 100000 UNIT/GM TOP SCH (18:59)
[2019-02-16] MEDS: APIXABAN 2.5 MG TABLET PO SCH (19:00)
[2019-02-17 06:23] LABS: Absolute Lymphocytes (CBC) 1.6 K/uL (0.7-4.9); Basophils % 0.4 % (0-1.3); Hematocrit 27.1 % (36.0-45.0); Lymphocytes % 17.3 % (15.3-44.8); MPV 9.3 fL (7.6-11.3); RBC Red Blood Cell Count 2.87 M/uL (3.86-4.86)
[2019-02-17 06:37] LABS: BUN Blood Urea Nitrogen 29 mg/dL (7-18); Bicarbonate 27 mmol/L (21-32); Glucose Level 118 mg/dL (74-106); Sodium Level 144 mmol/L (136-145)
[2019-02-17 06:42] LABS: Albumin 2.6 g/dL (3.4-5.0); Magnesium 2.3 mg/dL (1.8-2.4); Prealbumin 22.2 mg/dL (20-40)
[2019-02-17] MEDS: AMLODIPINE 10 MG TAB PO SCH (08:00)
[2019-02-17] MEDS: NYSTATIN PWDR 100000 UNIT/GM TOP SCH ×2 (08:00→20:00)
[2019-02-17] MEDS: SODIUM CHLORIDE 1 GM TAB PO SCH ×3 (08:45→16:54)
[2019-02-17] MEDS: APIXABAN 2.5 MG TABLET PO SCH ×2 (08:45→20:32)
[2019-02-17] MEDS: FERROUS SULFATE 325 MG TAB PO SCH (08:51)
[2019-02-17] MEDS: FE SULF/FA/VIT B COMP & C TAB PO SCH (08:51)
--- NOTE | 2019-02-17 10:17 | P.RH.PN ---
Estimated Length of Stay: 14 Expected Discharge Date: 02/21/19 Discharge Disposition Plan: Home Family Support: Yes Vital Signs: Last Vital Signs Temp 97.2 F 02/17/19 07:25 Pulse 73 02/17/19 08:00 Resp 16 02/17/19 07:25 BP 97/57 L 02/17/19 08:00 Pulse Ox 98 02/17/19 07:25 Laboratory: Laboratory Last Values WBC 9.0 K/uL (4.3-10.9) 02/17/19 06:05 RBC 2.87 M/uL (3.86-4.86) L 02/17/19 06:05 Hgb 9.3 g/dL (12.0-15.0) L 02/17/19 06:05 Hct 27.1 % (36.0-45.0) L 02/17/19 06:05 MCV 94.1 fL (80-100) 02/17/19 06:05 MCH 32.4 pg (27.0-35.0) 02/17/19 06:05 MCHC 34.4 g/dL (32.0-36.0) 02/17/19 06:05 RDW 14.7 % (12.1-15.2) 02/17/19 06:05 Plt Count 174 K/uL (152-406) 02/17/19 06:05 MPV 9.3 fL (7.6-11.3) 02/17/19 06:05 Neutrophils % 71.2 % (41.7-73.7) 02/17/19 06:05 Lymphocytes % 17.3 % (15.3-44.8) 02/17/19 06:05 Monocytes % 9.8 % (3.3-12.3) 02/17/19 06:05 Eosinophils % 1.3 % (0-4.4) 02/17/19 06:05 Basophils % 0.4 % (0-1.3) 02/17/19 06:05 Absolute Neutrophils 6.4 K/uL (1.8-8.0) 02/17/19 06:05 Absolute Lymphocytes 1.6 K/uL (0.7-4.9) 02/17/19 06:05 Absolute Monocytes 0.9 K/uL (0.1-1.3) 02/17/19 06:05 Absolute Eosinophils 0.1 K/uL (0-0.5) 02/17/19 06:05 Absolute Basophils 0.0 K/uL (0-0.5) 02/17/19 06:05 Sodium 144 mmol/L (136-145) 02/17/19 06:05 Potassium 4.0 mmol/L (3.5-5.1) 02/17/19 06:05 Chloride 113 mmol/L (98-107) H 02/17/19 06:05 Carbon Dioxide 27 mmol/L (21-32) 02/17/19 06:05 BUN 29 mg/dL (7-18) H 02/17/19 06:05 Creatinine 0.30 mg/dL (0.55-1.3) L 02/17/19 06:05 Estimated GFR > 90 mL/min (=/>90) 02/17/19 06:05 Glucose 118 mg/dL (74-106) H 02/17/19 06:05 Calcium 7.9 mg/dL (8.5-10.1) L 02/17/19 06:05 Magnesium 2.3 mg/dL (1.8-2.4) 02/17/19 06:05 Albumin 2.6 g/dL (3.4-5.0) L 02/17/19 06:05 Prealbumin 22.2 mg/dL (20-40) 02/17/19 06:05 Weight: 121 lb 14.4 oz Wound Present: No Closed Surgical Incision Present: Yes Negative Pressure Wound Therapy Present: No Physician Update: Labs reviewed and are stable. Will cut sodium to 1 gram bid. She was able stand with max assistance in the parallel bars. She has poor trunkal strenth. Medical Issues: Patient is incontinent daily with bladder and always continent with bowel. Functional Improvement: pt presents with severe generalized weakness with L side experiencing greater weakness than the R. pt demonstrates poor trunk strength. pt exhibits poor balance and stability in both sitting and standing. pt requires frequent verbal cues to maintain neutral sitting posture. pt experiences poor tolerance to functional activity due to fatigue and weakness. pt does demonstrate movement in all her joints, which is promising for the potential of strength return and rehabability. pt seems eager to improve at this time and appears to be a good participant in the future. Skilled PT services are necessary to address the above mentioned impairments and functional limitations. Speech Therapy Update: Patient obtained a 14/15 on the BIMS and a 29/30 on the MMSE indicating intact cognitive-linguistic skills. Patient's ability to return home and function at MOD-I to I is not limited by her speech, language, or cognitive-linguistic functions at this time. Summary: Patient's care plan and retirement goals have been reviewed and revised as necessary. Please see the Rehabilitation Signature page for all necessary signatures.
--- NOTE | 2019-02-17 13:28 | FAST ---
ENCOUNTER DATE AND TIME: 02/17/2019 08:00 (PRENATAL TEACHER) NAME GLENN WALKER DATE OF : 1955 DATE OF ADMISSION: 02/15/2019 23:31 (PRENATAL TEACHER) PHONE: AGE: 63 N# [id number] GENDER: Female ENCOUNTER PHYSICIAN: Dr. Sawyer Rios M.D. ADMISSION DIAGNOSIS: - Stroke 01 - Left Body (Right Brain) (01.1) right centrum semivola 5x3 mm DWI hypertintense lesion suggestive of acute ischemic infarct. EATING: Not assessed/no information CODE: - ORAL HYGIENE: Not assessed/no information CODE: - TOILETING HYGIENE: TOILETING HYGIENE - STEP 1: Does the patient complete the activity by him/herself with no assistance (physical, verbal/nonverbal cueing, setup/clean-up)? No. TOILETING HYGIENE - STEP 2: Does the patient need only setup/clean-up assistance from one helper? No. TOILETING HYGIENE - STEP 3: Does the patient need only verbal/nonverbal cueing or touching/steadying/contact guard assistance fro m one helper? No. TOILETING HYGIENE - STEP 4: Does the patient need physical assistance - for example lifting or trunk support from one helper - wi th the helper providing less than half of the effort? No. TOILETING HYGIENE - STEP 5: Does the patient need physical assistance - for example lifting or trunk support from one helper - wi th the helper providing more than half of the effort? No. TOILETING HYGIENE - STEP 6: Does the helper provide all of the effort? OR Is the assistance of two or more helpers required to co mplete the activity? Yes. 1. [id number] ADMISSION PERFORMANCE: Dependent CODE: 01 BATHING: Not assessed/no information CODE: - DRESSING - UPPER BODY: Not assessed/no information CODE: - DRESSING - LOWER BODY: Not assessed/no information CODE: - PUTTING ON/TAKING OFF FOOTWEAR: Not assessed/no information CODE: - DOES THE PATIENT USE A WHEELCHAIR/SCOOTER? CODE: EXPR INDICATE THE TYPE OF WHEELCHAIR/SCOOTER USED: CODE: EXPR INDICATE THE TYPE OF WHEELCHAIR/SCOOTER USED: CODE: EXPR BLADDER AND BOWEL: CODE: EXPR CODE: EXPR SIGNATURE PANEL: The following modified sections: 1. [id number] Admission Performance were [electronically] signed by Thi Ott OT on WedFeb 17 2019 13:27:24 GMT-0600 (Central Standard Time)
[2019-02-17] MEDS: ENOXAPARIN 40 MG/0.4 ML SQ SCH (16:53)
[2019-02-17 21:42] LABS: Urine Appearance CLOUDY; Urine Bilirubin NEGATIVE (NEG); Urine Blood NEGATIVE (NEG); Urine Color YELLOW; Urine Glucose NEGATIVE (NEG); Urine Protein NEGATIVE (NEG); Urine pH 6.5 (5.0-7.0)
[2019-02-17 21:56] LABS: Urine Culture Reflex Order REFLEXED
[2019-02-17 21:58] LABS: Urine Bacteria 20-50 /HPF (<20); Urine RBC <5 /HPF (NONE SEEN)
--- NOTE | 2019-02-18 02:15 | FAST ---
SHIFT START DATE/TIME: 02/17/2019 19:00 (CARD DOFFER) SHIFT END DATE/TIME: 02/18/2019 07:00 (CARD DOFFER) NAME GLENN WALKER DATE OF : 1955 DATE OF ADMISSION: 02/15/2019 23:31 (CARD DOFFER) PHONE: AGE: 63 N# [id number] GENDER: Female ENCOUNTER PHYSICIAN: Dr. Sawyer Rios M.D. ADMISSION DIAGNOSIS: - Stroke 01 - Left Body (Right Brain) (01.1) right centrum semivola 5x3 mm DWI hypertintense lesion suggestive of acute ischemic infarct. EATING: Not assessed/no information CODE: - ORAL HYGIENE: Not assessed/no information CODE: - TOILETING HYGIENE: TOILETING HYGIENE - STEP 1: Does the patient complete the activity by him/herself with no assistance (physical, verbal/nonverbal cueing, setup/clean-up)? No. TOILETING HYGIENE - STEP 2: Does the patient need only setup/clean-up assistance from one helper? No. TOILETING HYGIENE - STEP 3: Does the patient need only verbal/nonverbal cueing or touching/steadying/contact guard assistance fro m one helper? No. TOILETING HYGIENE - STEP 4: Does the patient need physical assistance - for example lifting or trunk support from one helper - wi th the helper providing less than half of the effort? No. TOILETING HYGIENE - STEP 5: Does the patient need physical assistance - for example lifting or trunk support from one helper - wi th the helper providing more than half of the effort? Yes. 1. [id number] ADMISSION PERFORMANCE: Substantial/maximal assistance CODE: 02 BATHING: Not assessed/no information CODE: - DRESSING - UPPER BODY: Not assessed/no information CODE: - DRESSING - LOWER BODY: Not assessed/no information CODE: - PUTTING ON/TAKING OFF FOOTWEAR: Not assessed/no information CODE: - TRANSFERS: CAR: Not assessed/no information CODE: - WALK 10 FEET: Not assessed/no information CODE: - 1 STEP (CURB): Not assessed/no information CODE: - PICKING UP OBJECT: Not assessed/no information CODE: - DOES THE PATIENT USE A WHEELCHAIR/SCOOTER? CODE: EXPR WHEEL 50 FEET WITH TWO TURNS: Not assessed/no information CODE: - INDICATE THE TYPE OF WHEELCHAIR/SCOOTER USED: CODE: EXPR WHEEL 150 FEET: Not assessed/no information CODE: - INDICATE THE TYPE OF WHEELCHAIR/SCOOTER USED: CODE: EXPR BLADDER AND BOWEL: H350. BLADDER CONTINENCE (3-DAY ASSESSMENT PERIOD): Stress incontinence only CODE: 1 H400. BOWEL CONTINENCE (3-DAY ASSESSMENT PERIOD): Occasionally incontinent (one episode of bowel incontinence) CODE: 1
[2019-02-18] MEDS: FE SULF/FA/VIT B COMP & C TAB PO SCH ×2 (07:56→07:57)
[2019-02-18] MEDS: FERROUS SULFATE 325 MG TAB PO SCH (07:57)
[2019-02-18] MEDS: NYSTATIN PWDR 100000 UNIT/GM TOP SCH ×2 (07:57→21:02)
[2019-02-18] MEDS: APIXABAN 2.5 MG TABLET PO SCH ×2 (07:57→21:02)
[2019-02-18] MEDS: AMLODIPINE 10 MG TAB PO SCH (07:57)
[2019-02-18] MEDS: SODIUM CHLORIDE 1 GM TAB PO SCH ×2 (07:57→16:59)
--- NOTE | 2019-02-18 15:35 | FAST ---
ENCOUNTER DATE AND TIME: 02/16/2019 08:00 (SPA COORDINATOR) NAME GLENN WALKER DATE OF : 1955 DATE OF ADMISSION: 02/15/2019 23:31 (SPA COORDINATOR) PHONE: AGE: 63 N# [id number] GENDER: Female ENCOUNTER PHYSICIAN: Dr. Sawyer Rios M.D. ADMISSION DIAGNOSIS: - Stroke 01 - Left Body (Right Brain) (01.1) right centrum semivola 5x3 mm DWI hypertintense lesion suggestive of acute ischemic infarct. EATING: Not assessed/no information CODE: - ORAL HYGIENE: Not assessed/no information CODE: - TOILETING HYGIENE: Not assessed/no information CODE: - BATHING: SHOWER/BATHE SELF - STEP 1: Does the patient complete the activity by him/herself with no assistance (physical, verbal/nonverbal cueing, setup/clean-up)? No. SHOWER/BATHE SELF - STEP 2: Does the patient need only setup/clean-up assistance from one helper? No. SHOWER/BATHE SELF - STEP 3: Does the patient need only verbal/nonverbal cueing or touching/steadying/contact guard assistance fro m one helper? No. SHOWER/BATHE SELF - STEP 4: Does the patient need physical assistance - for example lifting or trunk support from one helper - wi th the helper providing less than half of the effort? No. SHOWER/BATHE SELF - STEP 5: Does the patient need physical assistance - for example lifting or trunk support from one helper - wi th the helper providing more than half of the effort? No. SHOWER/BATHE SELF - STEP 6: Does the helper provide all of the effort? OR Is the assistance of two or more helpers required to co mplete the activity? Yes. 1. [id number] ADMISSION PERFORMANCE: Dependent CODE: 01 DRESSING - UPPER BODY: DRESSING - UPPER BODY - STEP 1: Does the patient complete the activity by him/herself with no assistance (physical, verbal/nonverbal cueing, setup/clean-up)? No. DRESSING - UPPER BODY - STEP 2: Does the patient need only setup/clean-up assistance from one helper? No. DRESSING - UPPER BODY - STEP 3: Does the patient need only verbal/nonverbal cueing or touching/steadying/contact guard assistance fro m one helper? No. DRESSING - UPPER BODY - STEP 4: Does the patient need physical assistance - for example lifting or trunk support from one helper - wi th the helper providing less than half of the effort? No. DRESSING - UPPER BODY - STEP 5: Does the patient need physical assistance - for example lifting or trunk support from one helper - wi th the helper providing more than half of the effort? No. DRESSING - UPPER BODY - STEP 6: Does the helper provide all of the effort? OR Is the assistance of two or more helpers required to co mplete the activity? Yes. 1. [id number] ADMISSION PERFORMANCE: Dependent CODE: DRESSING - LOWER BODY: DRESSING - LOWER BODY - STEP 1: Does the patient complete the activity by him/herself with no assistance (physical, verbal/nonverbal cueing, setup/clean-up)? No. DRESSING - LOWER BODY - STEP 2: Does the patient need only setup/clean-up assistance from one helper? No. DRESSING - LOWER BODY - STEP 3: Does the patient need only verbal/nonverbal cueing or touching/steadying/contact guard assistance fro m one helper? No. DRESSING - LOWER BODY - STEP 4: Does the patient need physical assistance - for example lifting or trunk support from one helper - wi th the helper providing less than half of the effort? No. DRESSING - LOWER BODY - STEP 5: Does the patient need physical assistance - for example lifting or trunk support from one helper - wi th the helper providing more than half of the effort? No. DRESSING - LOWER BODY - STEP 6: Does the helper provide all of the effort? OR Is the assistance of two or more helpers required to co mplete the activity? Yes. 1. [id number] ADMISSION PERFORMANCE: Dependent CODE: PUTTING ON/TAKING OFF FOOTWEAR: FOOTWEAR - STEP 1: Does the patient complete the activity by him/herself with no assistance (physical, verbal/nonverbal cueing, setup/clean-up)? No. FOOTWEAR - STEP 2: Does the patient need only setup/clean-up assistance from one helper? No. FOOTWEAR - STEP 3: Does the patient need only verbal/nonverbal cueing or touching/steadying/contact guard assistance fro m one helper? No. FOOTWEAR - STEP 4: Does the patient need physical assistance - for example lifting or trunk support from one helper - wi th the helper providing less than half of the effort? No. FOOTWEAR - STEP 5: Does the patient need physical assistance - for example lifting or trunk support from one helper - wi th the helper providing more than half of the effort? No. FOOTWEAR - STEP 6: Does the helper provide all of the effort? OR Is the assistance of two or more helpers required to co mplete the activity? Yes. 1. [id number] ADMISSION PERFORMANCE: Dependent CODE: 01 DOES THE PATIENT USE A WHEELCHAIR/SCOOTER? CODE: EXPR INDICATE THE TYPE OF WHEELCHAIR/SCOOTER USED: CODE: EXPR INDICATE THE TYPE OF WHEELCHAIR/SCOOTER USED: CODE: EXPR BLADDER AND BOWEL: CODE: EXPR CODE: EXPR SIGNATURE PANEL: The following modified sections: 1. [id number] Admission Performance, 1. [id number] Admission Performance, 1. [id number] Admission Performance, 1. [id number] Admission Performance were [electronically] signed by Enrico Dallas OT on Sat Feb 18 2019 15:34:08 GMT-0600 (Central Standard Time)
[2019-02-18] MEDS: ENOXAPARIN 40 MG/0.4 ML SQ SCH (16:59)
[2019-02-18] MEDS: CRANBERRY FRUIT EXTRACT 200 MG CAP PO SCH (21:01)
[2019-02-19] MEDS: NYSTATIN PWDR 100000 UNIT/GM TOP SCH ×2 (08:00→20:16)
[2019-02-19] MEDS: SODIUM CHLORIDE 1 GM TAB PO SCH ×2 (08:16→16:41)
[2019-02-19] MEDS: FE SULF/FA/VIT B COMP & C TAB PO SCH (08:16)
[2019-02-19] MEDS: CRANBERRY FRUIT EXTRACT 200 MG CAP PO SCH ×2 (08:16→20:16)
[2019-02-19] MEDS: APIXABAN 2.5 MG TABLET PO SCH ×2 (08:17→20:16)
[2019-02-19] MEDS: FERROUS SULFATE 325 MG TAB PO SCH (08:17)
[2019-02-19] MEDS: AMLODIPINE 10 MG TAB PO SCH (08:17)
--- NOTE | 2019-02-19 10:31 | FAST ---
SHIFT START DATE/TIME: 02/18/2019 07:00 (MINING AND QUARRYING MACHINERY REPAIRER) SHIFT END DATE/TIME: 02/18/2019 19:00 (MINING AND QUARRYING MACHINERY REPAIRER) NAME GLENN WALKER DATE OF : 1955 DATE OF ADMISSION: 02/15/2019 23:31 (MINING AND QUARRYING MACHINERY REPAIRER) PHONE: AGE: 63 N# [id number] GENDER: Female ENCOUNTER PHYSICIAN: Dr. Sawyer Rios M.D. ADMISSION DIAGNOSIS: - Stroke 01 - Left Body (Right Brain) (01.1) right centrum semivola 5x3 mm DWI hypertintense lesion suggestive of acute ischemic infarct. EATING: EATING - STEP 1: Does the patient complete the activity by him/herself with no assistance (physical, verbal/nonverbal cueing, setup/clean-up)? No. EATING - STEP 2: Does the patient need only setup/clean-up assistance from one helper? Yes. 1. [id number] ADMISSION PERFORMANCE: Setup or clean-up assistance CODE: 05 ORAL HYGIENE: ORAL HYGIENE - STEP 1: Does the patient complete the activity by him/herself with no assistance (physical, verbal/nonverbal cueing, setup/clean-up)? No. ORAL HYGIENE - STEP 2: Does the patient need only setup/clean-up assistance from one helper? Yes. 1. [id number] ADMISSION PERFORMANCE: Setup or clean-up assistance CODE: 05 TOILETING HYGIENE: TOILETING HYGIENE - STEP 1: Does the patient complete the activity by him/herself with no assistance (physical, verbal/nonverbal cueing, setup/clean-up)? No. TOILETING HYGIENE - STEP 2: Does the patient need only setup/clean-up assistance from one helper? No. TOILETING HYGIENE - STEP 3: Does the patient need only verbal/nonverbal cueing or touching/steadying/contact guard assistance fro m one helper? No. TOILETING HYGIENE - STEP 4: Does the patient need physical assistance - for example lifting or trunk support from one helper - wi th the helper providing less than half of the effort? No. TOILETING HYGIENE - STEP 5: Does the patient need physical assistance - for example lifting or trunk support from one helper - wi th the helper providing more than half of the effort? Yes. 1. [id number] ADMISSION PERFORMANCE: Substantial/maximal assistance CODE: 02 BATHING: Not assessed/no information CODE: - DRESSING - UPPER BODY: DRESSING - UPPER BODY - STEP 1: Does the patient complete the activity by him/herself with no assistance (physical, verbal/nonverbal cueing, setup/clean-up)? No. DRESSING - UPPER BODY - STEP 2: Does the patient need only setup/clean-up assistance from one helper? No. DRESSING - UPPER BODY - STEP 3: Does the patient need only verbal/nonverbal cueing or touching/steadying/contact guard assistance fro m one helper? No. DRESSING - UPPER BODY - STEP 4: Does the patient need physical assistance - for example lifting or trunk support from one helper - wi th the helper providing less than half of the effort? No. DRESSING - UPPER BODY - STEP 5: Does the patient need physical assistance - for example lifting or trunk support from one helper - wi th the helper providing more than half of the effort? Yes. 1. [id number] ADMISSION PERFORMANCE: Substantial/maximal assistance CODE: 02 DRESSING - LOWER BODY: DRESSING - LOWER BODY - STEP 1: Does the patient complete the activity by him/herself with no assistance (physical, verbal/nonverbal cueing, setup/clean-up)? No. DRESSING - LOWER BODY - STEP 2: Does the patient need only setup/clean-up assistance from one helper? No. DRESSING - LOWER BODY - STEP 3: Does the patient need only verbal/nonverbal cueing or touching/steadying/contact guard assistance fro m one helper? No. DRESSING - LOWER BODY - STEP 4: Does the patient need physical assistance - for example lifting or trunk support from one helper - wi th the helper providing less than half of the effort? No. DRESSING - LOWER BODY - STEP 5: Does the patient need physical assistance - for example lifting or trunk support from one helper - wi th the helper providing more than half of the effort? Yes. 1. [id number] ADMISSION PERFORMANCE: Substantial/maximal assistance CODE: 02 PUTTING ON/TAKING OFF FOOTWEAR: FOOTWEAR - STEP 1: Does the patient complete the activity by him/herself with no assistance (physical, verbal/nonverbal cueing, setup/clean-up)? No. FOOTWEAR - STEP 2: Does the patient need only setup/clean-up assistance from one helper? No. FOOTWEAR - STEP 3: Does the patient need only verbal/nonverbal cueing or touching/steadying/contact guard assistance fro m one helper? No. FOOTWEAR - STEP 4: Does the patient need physical assistance - for example lifting or trunk support from one helper - wi th the helper providing less than half of the effort? No. FOOTWEAR - STEP 5: Does the patient need physical assistance - for example lifting or trunk support from one helper - wi th the helper providing more than half of the effort? No. FOOTWEAR - STEP 6: Does the helper provide all of the effort? OR Is the assistance of two or more helpers required to co mplete the activity? Yes. 1. [id number] ADMISSION PERFORMANCE: Dependent CODE: 01 ROLL LEFT AND RIGHT: ROLL LEFT AND RIGHT - STEP 1: Does the patient complete the activity by him/herself with no assistance (physical, verbal/nonverbal cueing, setup/clean-up)? No. ROLL LEFT AND RIGHT - STEP 2: Does the patient need only setup/clean-up assistance from one helper? No. ROLL LEFT AND RIGHT - STEP 3: Does the patient need only verbal/nonverbal cueing or touching/steadying/contact guard assistance fro m one helper? No. ROLL LEFT AND RIGHT - STEP 4: Does the patient need physical assistance - for example lifting or trunk support from one helper - wi th the helper providing less than half of the effort? No. ROLL LEFT AND RIGHT - STEP 5: Does the patient need physical assistance - for example lifting or trunk support from one helper - wi th the helper providing more than half of the effort? No. ROLL LEFT AND RIGHT - STEP 6: Does the helper provide all of the effort? OR Is the assistance of two or more helpers required to co mplete the activity? Yes. 1. [id number] ADMISSION PERFORMANCE: Dependent CODE: SIT TO LYING: SIT TO LYING - STEP 1: Does the patient complete the activity by him/herself with no assistance (physical, verbal/nonverbal cueing, setup/clean-up)? No. SIT TO LYING - STEP 2: Does the patient need only setup/clean-up assistance from one helper? No. SIT TO LYING - STEP 3: Does the patient need only verbal/nonverbal cueing or touching/steadying/contact guard assistance fro m one helper? No. SIT TO LYING - STEP 4: Does the patient need physical assistance - for example lifting or trunk support from one helper - wi th the helper providing less than half of the effort? No. SIT TO LYING - STEP 5: Does the patient need physical assistance - for example lifting or trunk support from one helper - wi th the helper providing more than half of the effort? No. SIT TO LYING - STEP 6: Does the helper provide all of the effort? OR Is the assistance of two or more helpers required to co mplete the activity? Yes. 1. [id number] ADMISSION PERFORMANCE: Dependent CODE: 01 LYING TO SITTING: LYING TO SITTING ON SIDE OF BED - STEP 1: Does the patient complete the activity by him/herself with no assistance (physical, verbal/nonverbal cueing, setup/clean-up)? No. LYING TO SITTING ON SIDE OF BED - STEP 2: Does the patient need only setup/clean-up assistance from one helper? No. LYING TO SITTING ON SIDE OF BED - STEP 3: Does the patient need only verbal/nonverbal cueing or touching/steadying/contact guard assistance fro m one helper? No. LYING TO SITTING ON SIDE OF BED - STEP 4: Does the patient need physical assistance - for example lifting or trunk support from one helper - wi th the helper providing less than half of the effort? No. LYING TO SITTING ON SIDE OF BED - STEP 5: Does the patient need physical assistance - for example lifting or trunk support from one helper - wi th the helper providing more than half of the effort? No. LYING TO SITTING ON SIDE OF BED - STEP 6: Does the helper provide all of the effort? OR Is the assistance of two or more helpers required to co mplete the activity? Yes. 1. [id number] ADMISSION PERFORMANCE: Dependent CODE: 01 SIT TO STAND: SIT TO STAND - STEP 1: Does the patient complete the activity by him/herself with no assistance (physical, verbal/nonverbal cueing, setup/clean-up)? No. SIT TO STAND - STEP 2: Does the patient need only setup/clean-up assistance from one helper? No. SIT TO STAND - STEP 3: Does the patient need only verbal/nonverbal cueing or touching/steadying/contact guard assistance fro m one helper? No. SIT TO STAND - STEP 4: Does the patient need physical assistance - for example lifting or trunk support from one helper - wi th the helper providing less than half of the effort? No. SIT TO STAND - STEP 5: Does the patient need physical assistance - for example lifting or trunk support from one helper - wi th the helper providing more than half of the effort? No. SIT TO STAND - STEP 6: Does the helper provide all of the effort? OR Is the assistance of two or more helpers required to co mplete the activity? Yes. 1. [id number] ADMISSION PERFORMANCE: Dependent CODE: 01 TRANSFERS: BED, CHAIR: CHAIR/[id number] TRANSFER - STEP 1: Does the patient complete the activity by him/herself with no assistance (physical, verbal/nonverbal cueing, setup/clean-up)? No. CHAIR/[id number] TRANSFER - STEP 2: Does the patient need only setup/clean-up assistance from one helper? No. CHAIR/[id number] TRANSFER - STEP 3: Does the patient need only verbal/nonverbal cueing or touching/steadying/contact guard assistance fro m one helper? No. CHAIR/[id number] TRANSFER - STEP 4: Does the patient need physical assistance - for example lifting or trunk support from one helper - wi th the helper providing less than half of the effort? No. CHAIR/[id number] TRANSFER - STEP 5: Does the patient need physical assistance - for example lifting or trunk support from one helper - wi th the helper providing more than half of the effort? No. CHAIR/[id number] TRANSFER - STEP 6: Does the helper provide all of the effort? OR Is the assistance of two or more helpers required to co mplete the activity? Yes. 1. [id number] ADMISSION PERFORMANCE: Dependent CODE: 01 TRANSFER TOILET: TOILET TRANSFER - STEP 1: Does the patient complete the activity by him/herself with no assistance (physical, verbal/nonverbal cueing, setup/clean-up)? No. TOILET TRANSFER - STEP 2: Does the patient need only setup/clean-up assistance from one helper? No. TOILET TRANSFER - STEP 3: Does the patient need only verbal/nonverbal cueing or touching/steadying/contact guard assistance fro m one helper? No. TOILET TRANSFER - STEP 4: Does the patient need physical assistance - for example lifting or trunk support from one helper - wi th the helper providing less than half of the effort? No. TOILET TRANSFER - STEP 5: Does the patient need physical assistance - for example lifting or trunk support from one helper - wi th the helper providing more than half of the effort? No. TOILET TRANSFER - STEP 6: Does the helper provide all of the effort? OR Is the assistance of two or more helpers required to co mplete the activity? Yes. 1. [id number] ADMISSION PERFORMANCE: Dependent CODE: 01 TRANSFERS: CAR: Not assessed/no information CODE: - WALK 10 FEET: Not assessed/no information CODE: - 1 STEP (CURB): Not assessed/no information CODE: - PICKING UP OBJECT: Not assessed/no information CODE: - DOES THE PATIENT USE A WHEELCHAIR/SCOOTER? Q1. DOES THE PATIENT USE A WHEELCHAIR/SCOOTER?: Yes CODE: 1 WHEEL 50 FEET WITH TWO TURNS: WHEEL 50 FEET WITH TWO TURNS - STEP 1: Does the patient complete the activity by him/herself with no assistance (physical, verbal/nonverbal cueing, setup/clean-up)? No. WHEEL 50 FEET WITH TWO TURNS - STEP 2: Does the patient need only setup/clean-up assistance from one helper? No. WHEEL 50 FEET WITH TWO TURNS - STEP 3: Does the patient need only verbal/nonverbal cueing or touching/steadying/contact guard assistance fro m one helper? No. WHEEL 50 FEET WITH TWO TURNS - STEP 4: Does the patient need physical assistance - for example lifting or trunk support from one helper - wi th the helper providing less than half of the effort? No. WHEEL 50 FEET WITH TWO TURNS - STEP 5: Does the patient need physical assistance - for example lifting or trunk support from one helper - wi th the helper providing more than half of the effort? No. WHEEL 50 FEET WITH TWO TURNS - STEP 6: Does the helper provide all of the effort? OR Is the assistance of two or more helpers required to co mplete the activity? Yes. 1. [id number] ADMISSION PERFORMANCE: Dependent CODE: 01 INDICATE THE TYPE OF WHEELCHAIR/SCOOTER USED: RR1. INDICATE THE TYPE OF WHEELCHAIR/SCOOTER USED.: Manual CODE: 1 WHEEL 150 FEET: Not assessed/no information CODE: - INDICATE THE TYPE OF WHEELCHAIR/SCOOTER USED: SS1. INDICATE THE TYPE OF WHEELCHAIR/SCOOTER USED.: Manual CODE: 1 BLADDER AND BOWEL: H350. BLADDER CONTINENCE (3-DAY ASSESSMENT PERIOD): Incontinent daily (at least once a day) CODE: 3 H400. BOWEL CONTINENCE (3-DAY ASSESSMENT PERIOD): Frequently incontinent (2 or more episodes of bowel incontinence, but at least one continent bowel mo vement) CODE: 2 SIGNATURE PANEL: The following modified sections: 1. [id number] Admission Performance, 1. [id number] Admission Performance, 1. [id number] Admission Performance, 1. [id number] Admission Performance, 1. [id number] Admission Performance, 1. JR6337i Admission Performance, 1. [id number] Admission Performance, 1. [id number] Admission Performance , 1. [id number] Admission Performance, 1. [id number] Admission Performance, 1. IN6605H Admission Performanc e, 1. [id number] Admission Performance, 1. [id number] Admission Performance, 1. [id number] Admission Performan ce, 1. [id number] Admission Performance, Q1. Does the patient use a wheelchair/scooter?, 1. [id number] Admi ssion Performance, RR1. Indicate the type of wheelchair/scooter used., Code, SS1. Indicate the type o f wheelchair/scooter used., H350. Bladder Continence (3-day assessment period), H400. Bowel Continenc e (3-day assessment period) were [electronically] signed by Cathy De La [email or web address] on WedFeb 19 2019 1 0:30:13 T-0600 (Central Standard Time)
[2019-02-20] MEDS: NYSTATIN PWDR 100000 UNIT/GM TOP SCH ×2 (08:00→19:14)
[2019-02-20] MEDS: CRANBERRY FRUIT EXTRACT 200 MG CAP PO SCH ×2 (08:10→19:15)
[2019-02-20] MEDS: AMLODIPINE 10 MG TAB PO SCH (08:10)
[2019-02-20] MEDS: SODIUM CHLORIDE 1 GM TAB PO SCH ×2 (08:10→16:46)
[2019-02-20] MEDS: APIXABAN 2.5 MG TABLET PO SCH ×2 (08:11→19:16)
[2019-02-20] MEDS: FERROUS SULFATE 325 MG TAB PO SCH (08:11)
[2019-02-20] MEDS: FE SULF/FA/VIT B COMP & C TAB PO SCH (08:12)
--- NOTE | 2019-02-20 11:16 | FAST ---
SHIFT START DATE/TIME: 02/20/2019 07:00 (IT ACCOUNT MANAGER) SHIFT END DATE/TIME: 02/20/2019 19:00 (IT ACCOUNT MANAGER) NAME GLENN WALKER DATE OF : 1955 DATE OF ADMISSION: 02/15/2019 23:31 (IT ACCOUNT MANAGER) PHONE: AGE: 63 N# [id number] GENDER: Female ENCOUNTER PHYSICIAN: Dr. Sawyer Rios M.D. ADMISSION DIAGNOSIS: - Stroke 01 - Left Body (Right Brain) (01.1) right centrum semivola 5x3 mm DWI hypertintense lesion suggestive of acute ischemic infarct. EATING: EATING - STEP 1: Does the patient complete the activity by him/herself with no assistance (physical, verbal/nonverbal cueing, setup/clean-up)? No. EATING - STEP 2: Does the patient need only setup/clean-up assistance from one helper? No. EATING - STEP 3: Does the patient need only verbal/nonverbal cueing or touching/steadying/contact guard assistance fro m one helper? No. EATING - STEP 4: Does the patient need physical assistance - for example lifting or trunk support from one helper - wi th the helper providing less than half of the effort? Yes. 1. [id number] ADMISSION PERFORMANCE: Partial/moderate assistance CODE: 03 ORAL HYGIENE: ORAL HYGIENE - STEP 1: Does the patient complete the activity by him/herself with no assistance (physical, verbal/nonverbal cueing, setup/clean-up)? No. ORAL HYGIENE - STEP 2: Does the patient need only setup/clean-up assistance from one helper? No. ORAL HYGIENE - STEP 3: Does the patient need only verbal/nonverbal cueing or touching/steadying/contact guard assistance fro m one helper? No. ORAL HYGIENE - STEP 4: Does the patient need physical assistance - for example lifting or trunk support from one helper - wi th the helper providing less than half of the effort? Yes. 1. [id number] ADMISSION PERFORMANCE: Partial/moderate assistance CODE: 03 TOILETING HYGIENE: TOILETING HYGIENE - STEP 1: Does the patient complete the activity by him/herself with no assistance (physical, verbal/nonverbal cueing, setup/clean-up)? No. TOILETING HYGIENE - STEP 2: Does the patient need only setup/clean-up assistance from one helper? No. TOILETING HYGIENE - STEP 3: Does the patient need only verbal/nonverbal cueing or touching/steadying/contact guard assistance fro m one helper? No. TOILETING HYGIENE - STEP 4: Does the patient need physical assistance - for example lifting or trunk support from one helper - wi th the helper providing less than half of the effort? No. TOILETING HYGIENE - STEP 5: Does the patient need physical assistance - for example lifting or trunk support from one helper - wi th the helper providing more than half of the effort? No. TOILETING HYGIENE - STEP 6: Does the helper provide all of the effort? OR Is the assistance of two or more helpers required to co mplete the activity? Yes. 1. [id number] ADMISSION PERFORMANCE: Dependent CODE: 01 BATHING: Not assessed/no information CODE: - DRESSING - UPPER BODY: Not assessed/no information CODE: - DRESSING - LOWER BODY: Not assessed/no information CODE: - PUTTING ON/TAKING OFF FOOTWEAR: Not assessed/no information CODE: - ROLL LEFT AND RIGHT: ROLL LEFT AND RIGHT - STEP 1: Does the patient complete the activity by him/herself with no assistance (physical, verbal/nonverbal cueing, setup/clean-up)? No. ROLL LEFT AND RIGHT - STEP 2: Does the patient need only setup/clean-up assistance from one helper? No. ROLL LEFT AND RIGHT - STEP 3: Does the patient need only verbal/nonverbal cueing or touching/steadying/contact guard assistance fro m one helper? No. ROLL LEFT AND RIGHT - STEP 4: Does the patient need physical assistance - for example lifting or trunk support from one helper - wi th the helper providing less than half of the effort? Yes. 1. [id number] ADMISSION PERFORMANCE: Partial/moderate assistance CODE: 03 SIT TO LYING: SIT TO LYING - STEP 1: Does the patient complete the activity by him/herself with no assistance (physical, verbal/nonverbal cueing, setup/clean-up)? No. SIT TO LYING - STEP 2: Does the patient need only setup/clean-up assistance from one helper? No. SIT TO LYING - STEP 3: Does the patient need only verbal/nonverbal cueing or touching/steadying/contact guard assistance fro m one helper? No. SIT TO LYING - STEP 4: Does the patient need physical assistance - for example lifting or trunk support from one helper - wi th the helper providing less than half of the effort? No. SIT TO LYING - STEP 5: Does the patient need physical assistance - for example lifting or trunk support from one helper - wi th the helper providing more than half of the effort? No. SIT TO LYING - STEP 6: Does the helper provide all of the effort? OR Is the assistance of two or more helpers required to co mplete the activity? Yes. 1. [id number] ADMISSION PERFORMANCE: Dependent CODE: 01 LYING TO SITTING: LYING TO SITTING ON SIDE OF BED - STEP 1: Does the patient complete the activity by him/herself with no assistance (physical, verbal/nonverbal cueing, setup/clean-up)? No. LYING TO SITTING ON SIDE OF BED - STEP 2: Does the patient need only setup/clean-up assistance from one helper? No. LYING TO SITTING ON SIDE OF BED - STEP 3: Does the patient need only verbal/nonverbal cueing or touching/steadying/contact guard assistance fro m one helper? No. LYING TO SITTING ON SIDE OF BED - STEP 4: Does the patient need physical assistance - for example lifting or trunk support from one helper - wi th the helper providing less than half of the effort? No. LYING TO SITTING ON SIDE OF BED - STEP 5: Does the patient need physical assistance - for example lifting or trunk support from one helper - wi th the helper providing more than half of the effort? Yes. 1. [id number] ADMISSION PERFORMANCE: Substantial/maximal assistance CODE: 02 SIT TO STAND: SIT TO STAND - STEP 1: Does the patient complete the activity by him/herself with no assistance (physical, verbal/nonverbal cueing, setup/clean-up)? No. SIT TO STAND - STEP 2: Does the patient need only setup/clean-up assistance from one helper? No. SIT TO STAND - STEP 3: Does the patient need only verbal/nonverbal cueing or touching/steadying/contact guard assistance fro m one helper? No. SIT TO STAND - STEP 4: Does the patient need physical assistance - for example lifting or trunk support from one helper - wi th the helper providing less than half of the effort? No. SIT TO STAND - STEP 5: Does the patient need physical assistance - for example lifting or trunk support from one helper - wi th the helper providing more than half of the effort? Yes. 1. [id number] ADMISSION PERFORMANCE: Substantial/maximal assistance CODE: 02 TRANSFERS: BED, CHAIR: CHAIR/[id number] TRANSFER - STEP 1: Does the patient complete the activity by him/herself with no assistance (physical, verbal/nonverbal cueing, setup/clean-up)? No. CHAIR/[id number] TRANSFER - STEP 2: Does the patient need only setup/clean-up assistance from one helper? No. CHAIR/[id number] TRANSFER - STEP 3: Does the patient need only verbal/nonverbal cueing or touching/steadying/contact guard assistance fro m one helper? No. CHAIR/[id number] TRANSFER - STEP 4: Does the patient need physical assistance - for example lifting or trunk support from one helper - wi th the helper providing less than half of the effort? No. CHAIR/[id number]-[id number] TRANSFER - STEP 5: Does the patient need physical assistance - for example lifting or trunk support from one helper - wi th the helper providing more than half of the effort? Yes. 1. [id number] ADMISSION PERFORMANCE: Substantial/maximal assistance CODE: 02 TRANSFER TOILET: TOILET TRANSFER - STEP 1: Does the patient complete the activity by him/herself with no assistance (physical, verbal/nonverbal cueing, setup/clean-up)? No. TOILET TRANSFER - STEP 2: Does the patient need only setup/clean-up assistance from one helper? No. TOILET TRANSFER - STEP 3: Does the patient need only verbal/nonverbal cueing or touching/steadying/contact guard assistance fro m one helper? No. TOILET TRANSFER - STEP 4: Does the patient need physical assistance - for example lifting or trunk support from one helper - wi th the helper providing less than half of the effort? No. TOILET TRANSFER - STEP 5: Does the patient need physical assistance - for example lifting or trunk support from one helper - wi th the helper providing more than half of the effort? Yes. 1. [id number] ADMISSION PERFORMANCE: Substantial/maximal assistance CODE: 02 TRANSFERS: CAR: Not assessed/no information CODE: - WALK 10 FEET: Not assessed/no information CODE: - 1 STEP (CURB): Not assessed/no information CODE: - PICKING UP OBJECT: Not assessed/no information CODE: - DOES THE PATIENT USE A WHEELCHAIR/SCOOTER? CODE: EXPR WHEEL 50 FEET WITH TWO TURNS: Not assessed/no information CODE: - INDICATE THE TYPE OF WHEELCHAIR/SCOOTER USED: CODE: EXPR WHEEL 150 FEET: Not assessed/no information CODE: - INDICATE THE TYPE OF WHEELCHAIR/SCOOTER USED: CODE: EXPR BLADDER AND BOWEL: H350. BLADDER CONTINENCE (3-DAY ASSESSMENT PERIOD): Incontinent less than daily (e.g., once or twice during the 3-day assessment period) CODE: 2 H400. BOWEL CONTINENCE (3-DAY ASSESSMENT PERIOD): Occasionally incontinent (one episode of bowel incontinence) CODE: 1 SIGNATURE PANEL: The following modified sections: 1. [id number] Admission Performance, 1. [id number] Admission Performance, 1. [id number] Admission Performance, 1. [id number] Admission Performance, 1. [id number] Admission Performance, 1. [id number] Admission Performance, 1. [id number] Admission Performance, 1. [id number] Admission Performance , 1. [id number] Admission Performance, 1. [id number] Admission Performance, 1. [id number] Admission Performanc e, Code, H350. Bladder Continence (3-day assessment period), H400. Bowel Continence (3-day assessment period) were [electronically] signed by Joel Lim on WedFeb 20 2019 11:15:10 GMT-0600 ([place])
[2019-02-20] MEDS: CIPROFLOXACIN HCL 500 MG TAB PO SCH (19:15)
--- NOTE | 2019-02-21 01:26 | PN ---
Date of Progress Note: 02/19/2019 Subjective: Patient was seen for followup in the morning. Denied any new complaints. Lying in bed, not in distress. No headache, nausea, vomiting. Objective: Vital Signs: Reviewed. HEENT: Unremarkable. Lungs: Clear to auscultation. Cardiac: Heart sounds normal. Abdomen: Soft. Bowel sounds normal. No guarding, rigidity, tenderness, distention. Extremities: No leg edema. 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 Impression: 1.Stroke with left-sided hemiparesis. 2.Meningioma, status post surgery. 3.Hyperlipidemia. Plan: We will continue current DVT prophylaxis. Continue physical therapy under guidance of Dr. Cardenas and I will see her tomorrow for followup. She was encouraged to do some exercise involving lef t upper and left lower extremity as taught today by me when I saw her, and I will see her tomorrow fo r followup. JULIO/MODL Voice ID: [id number] Report ID: [id number]
--- NOTE | 2019-02-21 01:32 | PN ---
Date of Progress Note: 02/20/2019 Subjective: Patient was seen this morning for followup. She was sitting in wheelchair. Her daughte r was with her at bedside. No new complaints or problems reported. Objective: Vital Signs: Reviewed. HEENT: Unremarkable. Lungs: Clear to auscultation. Heart: Heart sounds normal. Abdomen: Soft, bowel sounds normal. No guarding, rigidity, tenderness, or distention. Extremities: No leg edema. 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 Impression: 1.Stroke with left-sided hemiparesis. 2.Meningioma, status post surgery. 3.Hyperlipidemia. 4.Urinary tract infection. Plan: The patient's urine culture results came back after I saw her today and Cipro antibiotic will be started per culture. Continue physical therapy under guidance of Dr. Rios. We will continue current DVT prophylaxis and I will see her for followup. I did talk to patient's daughter about surv eillance. CAT scan to be done at least in the beginning on a yearly basis and after few years once w e make sure that she is not having any new meningioma, then we can reduce the frequency. JULIO/MODL Voice ID: [id number] Report ID: [id number]
[2019-02-21] MEDS: NYSTATIN PWDR 100000 UNIT/GM TOP SCH ×2 (08:00→19:28)
[2019-02-21] MEDS: AMLODIPINE 10 MG TAB PO SCH (08:00)
[2019-02-21] MEDS: APIXABAN 2.5 MG TABLET PO SCH ×2 (08:08→19:23)
[2019-02-21] MEDS: CIPROFLOXACIN HCL 500 MG TAB PO SCH ×2 (08:08→19:23)
[2019-02-21] MEDS: CRANBERRY FRUIT EXTRACT 200 MG CAP PO SCH ×2 (08:08→19:23)
[2019-02-21] MEDS: FE SULF/FA/VIT B COMP & C TAB PO SCH (08:08)
[2019-02-21] MEDS: SODIUM CHLORIDE 1 GM TAB PO SCH ×2 (08:08→17:27)
[2019-02-21] MEDS: FERROUS SULFATE 325 MG TAB PO SCH (08:08)
--- NOTE | 2019-02-21 10:35 | FAST ---
SHIFT START DATE/TIME: 02/21/2019 07:00 (PATIENT REGISTRATION CLERK) SHIFT END DATE/TIME: 02/21/2019 19:00 (PATIENT REGISTRATION CLERK) NAME GLENN WALKER DATE OF : 1955 DATE OF ADMISSION: 02/15/2019 23:31 (PATIENT REGISTRATION CLERK) PHONE: AGE: 63 N# [id number] GENDER: Female ENCOUNTER PHYSICIAN: Dr. Sawyer Rios M.D. ADMISSION DIAGNOSIS: - Stroke 01 - Left Body (Right Brain) (01.1) right centrum semivola 5x3 mm DWI hypertintense lesion suggestive of acute ischemic infarct. EATING: EATING - STEP 1: Does the patient complete the activity by him/herself with no assistance (physical, verbal/nonverbal cueing, setup/clean-up)? No. EATING - STEP 2: Does the patient need only setup/clean-up assistance from one helper? No. EATING - STEP 3: Does the patient need only verbal/nonverbal cueing or touching/steadying/contact guard assistance fro m one helper? No. EATING - STEP 4: Does the patient need physical assistance - for example lifting or trunk support from one helper - wi th the helper providing less than half of the effort? Yes. 1. [id number] ADMISSION PERFORMANCE: Partial/moderate assistance CODE: 03 ORAL HYGIENE: ORAL HYGIENE - STEP 1: Does the patient complete the activity by him/herself with no assistance (physical, verbal/nonverbal cueing, setup/clean-up)? No. ORAL HYGIENE - STEP 2: Does the patient need only setup/clean-up assistance from one helper? No. ORAL HYGIENE - STEP 3: Does the patient need only verbal/nonverbal cueing or touching/steadying/contact guard assistance fro m one helper? Yes. 1. [id number] ADMISSION PERFORMANCE: Supervision or touching assistance CODE: 04 TOILETING HYGIENE: TOILETING HYGIENE - STEP 1: Does the patient complete the activity by him/herself with no assistance (physical, verbal/nonverbal cueing, setup/clean-up)? No. TOILETING HYGIENE - STEP 2: Does the patient need only setup/clean-up assistance from one helper? No. TOILETING HYGIENE - STEP 3: Does the patient need only verbal/nonverbal cueing or touching/steadying/contact guard assistance fro m one helper? No. TOILETING HYGIENE - STEP 4: Does the patient need physical assistance - for example lifting or trunk support from one helper - wi th the helper providing less than half of the effort? No. TOILETING HYGIENE - STEP 5: Does the patient need physical assistance - for example lifting or trunk support from one helper - wi th the helper providing more than half of the effort? Yes. 1. [id number] ADMISSION PERFORMANCE: Substantial/maximal assistance CODE: 02 BATHING: Not assessed/no information CODE: - DRESSING - UPPER BODY: Not assessed/no information CODE: - DRESSING - LOWER BODY: Not assessed/no information CODE: - PUTTING ON/TAKING OFF FOOTWEAR: Not assessed/no information CODE: - ROLL LEFT AND RIGHT: Not assessed/no information CODE: - SIT TO LYING: SIT TO LYING - STEP 1: Does the patient complete the activity by him/herself with no assistance (physical, verbal/nonverbal cueing, setup/clean-up)? No. SIT TO LYING - STEP 2: Does the patient need only setup/clean-up assistance from one helper? No. SIT TO LYING - STEP 3: Does the patient need only verbal/nonverbal cueing or touching/steadying/contact guard assistance fro m one helper? No. SIT TO LYING - STEP 4: Does the patient need physical assistance - for example lifting or trunk support from one helper - wi th the helper providing less than half of the effort? Yes. 1. [id number] ADMISSION PERFORMANCE: Partial/moderate assistance CODE: 03 LYING TO SITTING: LYING TO SITTING ON SIDE OF BED - STEP 1: Does the patient complete the activity by him/herself with no assistance (physical, verbal/nonverbal cueing, setup/clean-up)? No. LYING TO SITTING ON SIDE OF BED - STEP 2: Does the patient need only setup/clean-up assistance from one helper? No. LYING TO SITTING ON SIDE OF BED - STEP 3: Does the patient need only verbal/nonverbal cueing or touching/steadying/contact guard assistance fro m one helper? No. LYING TO SITTING ON SIDE OF BED - STEP 4: Does the patient need physical assistance - for example lifting or trunk support from one helper - wi th the helper providing less than half of the effort? No. LYING TO SITTING ON SIDE OF BED - STEP 5: Does the patient need physical assistance - for example lifting or trunk support from one helper - wi th the helper providing more than half of the effort? Yes. 1. [id number] ADMISSION PERFORMANCE: Substantial/maximal assistance CODE: 02 SIT TO STAND: SIT TO STAND - STEP 1: Does the patient complete the activity by him/herself with no assistance (physical, verbal/nonverbal cueing, setup/clean-up)? No. SIT TO STAND - STEP 2: Does the patient need only setup/clean-up assistance from one helper? No. SIT TO STAND - STEP 3: Does the patient need only verbal/nonverbal cueing or touching/steadying/contact guard assistance fro m one helper? No. SIT TO STAND - STEP 4: Does the patient need physical assistance - for example lifting or trunk support from one helper - wi th the helper providing less than half of the effort? No. SIT TO STAND - STEP 5: Does the patient need physical assistance - for example lifting or trunk support from one helper - wi th the helper providing more than half of the effort? Yes. 1. [id number] ADMISSION PERFORMANCE: Substantial/maximal assistance CODE: 02 TRANSFERS: BED, CHAIR: CHAIR/[id number] TRANSFER - STEP 1: Does the patient complete the activity by him/herself with no assistance (physical, verbal/nonverbal cueing, setup/clean-up)? No. CHAIR/[id number] TRANSFER - STEP 2: Does the patient need only setup/clean-up assistance from one helper? No. CHAIR/NQA-[id number] TRANSFER - STEP 3: Does the patient need only verbal/nonverbal cueing or touching/steadying/contact guard assistance fro m one helper? No. CHAIR/[id number] TRANSFER - STEP 4: Does the patient need physical assistance - for example lifting or trunk support from one helper - wi th the helper providing less than half of the effort? No. CHAIR/[id number] TRANSFER - STEP 5: Does the patient need physical assistance - for example lifting or trunk support from one helper - wi th the helper providing more than half of the effort? Yes. 1. [id number] ADMISSION PERFORMANCE: Substantial/maximal assistance CODE: 02 TRANSFER TOILET: TOILET TRANSFER - STEP 1: Does the patient complete the activity by him/herself with no assistance (physical, verbal/nonverbal cueing, setup/clean-up)? No. TOILET TRANSFER - STEP 2: Does the patient need only setup/clean-up assistance from one helper? No. TOILET TRANSFER - STEP 3: Does the patient need only verbal/nonverbal cueing or touching/steadying/contact guard assistance fro m one helper? No. TOILET TRANSFER - STEP 4: Does the patient need physical assistance - for example lifting or trunk support from one helper - wi th the helper providing less than half of the effort? No. TOILET TRANSFER - STEP 5: Does the patient need physical assistance - for example lifting or trunk support from one helper - wi th the helper providing more than half of the effort? Yes. 1. [id number] ADMISSION PERFORMANCE: Substantial/maximal assistance CODE: 02 TRANSFERS: CAR: Not assessed/no information CODE: - WALK 10 FEET: Not assessed/no information CODE: - 1 STEP (CURB): Not assessed/no information CODE: - PICKING UP OBJECT: Not assessed/no information CODE: - DOES THE PATIENT USE A WHEELCHAIR/SCOOTER? CODE: EXPR WHEEL 50 FEET WITH TWO TURNS: Not assessed/no information CODE: - INDICATE THE TYPE OF WHEELCHAIR/SCOOTER USED: CODE: EXPR WHEEL 150 FEET: Not assessed/no information CODE: - INDICATE THE TYPE OF WHEELCHAIR/SCOOTER USED: CODE: EXPR BLADDER AND BOWEL: H350. BLADDER CONTINENCE (3-DAY ASSESSMENT PERIOD): Always continent (no documented incontinence) CODE: 0 H400. BOWEL CONTINENCE (3-DAY ASSESSMENT PERIOD): Always continent CODE: 0 SIGNATURE PANEL: The following modified sections: 1. [id number] Admission Performance, 1. [id number] Admission Performance, 1. [id number] Admission Performance, 1. [id number] Admission Performance, 1. [id number] Admission Performance, 1. OQ3290P Admission Performance, 1. [id number] Admission Performance, 1. YZ4306S Admission Performance , 1. TM1519O Admission Performance, 1. BE7064Q Admission Performance, 1. [id number] Admission Performanc e, Code, H350. Bladder Continence (3-day assessment period), H400. Bowel Continence (3-day assessment period) were [electronically] signed by Joel Lim on WedFeb 21 2019 10:34:27 GMT-0600 ([place])
--- NOTE | 2019-02-22 00:03 | PN ---
Date of Progress Note: 02/21/2019 Subjective: Patient was seen this morning for followup. No complaints or problems reported by her. Sitting in wheelchair. Denied any complaints. Objective: HEENT: Unremarkable. Lungs: Clear to auscultation. Heart: Heart sounds normal. Abdomen: Soft, bowel sounds normal. No guarding, rigidity, tenderness, or distention. Extremities: No leg edema. 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 Impression: 1.Urinary tract infection. 2.Stroke. 3.Meningioma. Plan: Continue current medication including antibiotic and current DVT prophylaxis. Continue physic al therapy per guidance of Dr. Rios. I will see her tomorrow for followup. We will continue Cip ro for 5 days for urinary tract infection and urine culture is growing Enterococcus faecalis and Pseu domonas. JULIO/MODL Voice ID: [id number] Report ID: [id number]
[2019-02-22] MEDS: NYSTATIN PWDR 100000 UNIT/GM TOP SCH ×2 (08:00→20:00)
[2019-02-22] MEDS: AMLODIPINE 5 MG TAB PO SCH (08:00)
[2019-02-22] MEDS: FE SULF/FA/VIT B COMP & C TAB PO SCH (08:13)
[2019-02-22] MEDS: FERROUS SULFATE 325 MG TAB PO SCH (08:13)
[2019-02-22] MEDS: CRANBERRY FRUIT EXTRACT 200 MG CAP PO SCH ×2 (08:13→20:11)
[2019-02-22] MEDS: SODIUM CHLORIDE 1 GM TAB PO SCH ×2 (08:14→17:56)
[2019-02-22] MEDS: CIPROFLOXACIN HCL 500 MG TAB PO SCH ×2 (08:14→20:11)
[2019-02-22] MEDS: APIXABAN 2.5 MG TABLET PO SCH ×2 (08:14→20:11)
--- NOTE | 2019-02-22 12:53 | FAST ---
ENCOUNTER DATE AND TIME: 02/22/2019 08:00 (TRAVEL DIRECTOR) NAME GLENN WALKER DATE OF : 1955 DATE OF ADMISSION: 02/15/2019 23:31 (TRAVEL DIRECTOR) PHONE: AGE: 63 N# [id number] GENDER: Female ENCOUNTER PHYSICIAN: Dr. Sawyer Rios M.D. ADMISSION DIAGNOSIS: - Stroke 01 - Left Body (Right Brain) (01.1) right centrum semivola 5x3 mm DWI hypertintense lesion suggestive of acute ischemic infarct. EATING: Not assessed/no information CODE: - ORAL HYGIENE: Not assessed/no information CODE: - TOILETING HYGIENE: Not assessed/no information CODE: - BATHING: SHOWER/BATHE SELF - STEP 1: Does the patient complete the activity by him/herself with no assistance (physical, verbal/nonverbal cueing, setup/clean-up)? No. SHOWER/BATHE SELF - STEP 2: Does the patient need only setup/clean-up assistance from one helper? No. SHOWER/BATHE SELF - STEP 3: Does the patient need only verbal/nonverbal cueing or touching/steadying/contact guard assistance fro m one helper? No. SHOWER/BATHE SELF - STEP 4: Does the patient need physical assistance - for example lifting or trunk support from one helper - wi th the helper providing less than half of the effort? Yes. 1. [id number] ADMISSION PERFORMANCE: Partial/moderate assistance CODE: 03 DRESSING - UPPER BODY: DRESSING - UPPER BODY - STEP 1: Does the patient complete the activity by him/herself with no assistance (physical, verbal/nonverbal cueing, setup/clean-up)? No. DRESSING - UPPER BODY - STEP 2: Does the patient need only setup/clean-up assistance from one helper? No. DRESSING - UPPER BODY - STEP 3: Does the patient need only verbal/nonverbal cueing or touching/steadying/contact guard assistance fro m one helper? No. DRESSING - UPPER BODY - STEP 4: Does the patient need physical assistance - for example lifting or trunk support from one helper - wi th the helper providing less than half of the effort? Yes. 1. [id number] ADMISSION PERFORMANCE: Partial/moderate assistance CODE: 03 DRESSING - LOWER BODY: DRESSING - LOWER BODY - STEP 1: Does the patient complete the activity by him/herself with no assistance (physical, verbal/nonverbal cueing, setup/clean-up)? No. DRESSING - LOWER BODY - STEP 2: Does the patient need only setup/clean-up assistance from one helper? No. DRESSING - LOWER BODY - STEP 3: Does the patient need only verbal/nonverbal cueing or touching/steadying/contact guard assistance fro m one helper? No. DRESSING - LOWER BODY - STEP 4: Does the patient need physical assistance - for example lifting or trunk support from one helper - wi th the helper providing less than half of the effort? Yes. 1. [id number] ADMISSION PERFORMANCE: Partial/moderate assistance CODE: 03 PUTTING ON/TAKING OFF FOOTWEAR: Not assessed/no information CODE: - DOES THE PATIENT USE A WHEELCHAIR/SCOOTER? CODE: EXPR INDICATE THE TYPE OF WHEELCHAIR/SCOOTER USED: CODE: EXPR INDICATE THE TYPE OF WHEELCHAIR/SCOOTER USED: CODE: EXPR BLADDER AND BOWEL: CODE: EXPR CODE: EXPR SIGNATURE PANEL: The following modified sections: 1. [id number] Admission Performance, 1. [id number] Admission Performance, 1. [id number] Admission Performance were [electronically] signed by Violet Ott OT on Wed 12:52:09 GMT-0600 (Central Standard Time)
--- NOTE | 2019-02-22 18:00 | R.PN ---
ENCOUNTER DATE AND TIME: 02/22/2019 17:52 (LAST SCOURER) NAME GLENN WALKER DATE OF : 1955 DATE OF ADMISSION: 02/15/2019 23:31 (LAST SCOURER) right centrum semivola 5x3 mm DWI hypertintense lesion suggestive of acute ischemic infarctSUBJECTIVE : Pt denied any Shortness of Breath. Pt denied any depression. Ambulated 50' with moderate assistance using a rolling walker. VITAL SIGNS Temperature: 97.6 F SBP/DBP: 99/62 Pulse: 79 Resp: 18 MEDICATION ALLERGIES: No Known Drug Allergies (NKDA) ENVIRONMENTAL ALLERGIES: - Substance Allergies None Known - Other Allergies None Known NURSING: - Shower allowing shower - Bladder care per protocol - Skin care per protocol PRECAUTIONS: - Weight Bearing Precaution WBAT left LE - Fall Precaution Bed alarm TABS alarm Wheel chair alarm ACTIVITIES OOB only with supervision THERAPIES: - Occupational Therapy Cognitive Retraining. Visual Perceptual Training. - Dietary and Nutrition Adequate Nutrition. Nutritional Education. Nutritional Supplements. - Speech Therapy Cognitive Training. Expressive Language Skills. Memory Strategies. Receptive Language Skills. Speech Intelligibility Training. PHYSICAL EXAM - Gen Alert and awake Lying in bed No apparent distress Oriented to: person, time, and place - Skin No breakdown Normacephalic - Eyes No abnormalities - ENMT No abnormalities - Neck No abnormalities - CVS RRR - Chest Clear - Abd Soft - GI Non distended Deferred - No abnormalities - Ext No significant edema - MSK 4/5 weakness in both lower extremities. - Neuro 2/5 strength left upper extremity. 4/5 weakness in both lower extremities. - Psych No abnormalities ASSESSMENT: Pt. is a 63 yo Right-handed female.On 01/25/2019 Pt. presented to [facility] with sudden onset of left-side weakness.On 01/25/2019 she was admitted to [facility] with diagnosis right centrum semivola 5x3 mm DWI hypertintense lesion suggesti ve of acute ischemic infarct.Her impairment category is Stroke 01 - Left Body (Right Brain) (01.1).P re-morbidly, Pt. was independent/mod-I in Locomotion, Endurance, Self-Care, Balance, Transfers Contro l, Safety Awareness, Communication, and Safety Awareness and Self-Care; and she had good Sphincter Co ntrol.Currently, she has deficits of Locomotion, Self-Care, Endurance, Balance, Transfers Control, Sa fety Awareness, Social Cognition, Ambulation, Communication, and Sphincter Control.Pt. is now referre d to [facility] for acute in-patient rehabilitation in order to maximize patie nt's functional independence in activities of daily living, strength, ROM, and mobility.- Rehab Goal Patient has realistic goal of being discharged at assistance level 6-Danielle to reside at Home with Fam adriana/Relatives. MDM/PLAN: - Physical Therapy Gait dysfunction - to improve, our physical therapists will perform initial evaluation of pt's statu s upon admission and devise an individualized program for Gait Training, and Wheel Chair mobility Inability to transfer - to improve, our physical therapists will perform initial evaluation of pt's status upon admission and devise an individualized program for Bed mobility Need for home safety evaluation - to improve, our physical therapists will perform initial evaluatio n of pt's status upon admission and devise an individualized program for Home Evaluation Need in caregiver upon discharge - to improve, our physical therapists will perform initial evaluati on of pt's status upon admission and devise an individualized program for Caregiver Training New precaution - to improve, our physical therapists will perform initial evaluation of pt's status upon admission and devise an individualized program for Patient precaution education Edema - to improve, our physical therapists will perform initial evaluation of pt's status upon admis willie and devise an individualized program for Elevation Training, and Lymphedema Therapy Poor balance - to improve, our physical therapists will perform initial evaluation of pt's status up on admission and devise an individualized program for Balance Training Poor endurance - to improve, our physical therapists will perform initial evaluation of pt's status upon admission and devise an individualized program for Endurance Training Weakness - to improve, our physical therapists will perform initial evaluation of pt's status upon a dmission and devise an individualized program for Aquatic Therapy, Neuromuscular Reeducation, and Str engthening Achieving independence - to improve, our physical therapists will perform initial evaluation of pt's status upon admission and devise an individualized program for Community Reintegration Activities - Occupational Therapy ADL deficits - to improve, our occupation therapists will perform initial evaluation of pt's status upon admission and devise an individualized program for Bathing, Bed mobility, Community Reintegratio n, Cooking, Dressing, Eating, Fine Motor Skills, Grooming, Homemaking, Kitchen Mobility, Laundry, Pat ient Education, Safety Awareness, Splinting - Positioning, Transfers(Toilet, Tub, Shower), and Wheel Chair Management Cognitive deficits - to improve, our occupation therapists will perform initial evaluation of pt's s tatus upon admission and devise an individualized program for Cognition - orientation Need for regular senior care provider - to improve, our occupation therapists will perform initial evaluation of pt's status upon admission and devise an individualized program for Caregiver Training Weakness - to improve, our occupation therapists will perform initial evaluation of pt's status upon admission and devise an individualized program for Aquatic Therapy, Balance, Endurance, UE ROM, and UE strengthening - Other See attached MAR (Medication Administration Record) - Diet Type Continue Regular - Diet - Liquid Texture Continue Regular - Tube Feed Continue N/A - Bladder care per protocol - Weight Bearing Precaution WBAT left LE - Fall Precaution Bed alarm TABS alarm Wheel chair alarm - Skin care per protocol - Diet - Solid Texture Continue Regular - Shower allowing shower for Dementia, TBI, Stroke, or others FUNCTIONAL STATUS: UPDATED AT WEEKLY TEAM CONFERENCE - Bladder Same accident frequency: 7-Ind - No accidents in the past 7 days - Bowel Same accident frequency: 7-Ind - No accidents in the past 7 days - Walking Same score based on distance walked: 1(<=50ft) - Wheelchair Same score based on distance traveled: 1(<=50ft) FUNCTIONAL STATUS: - Self-Care A. Eating Ind B. Grooming sup C. Bathing sup D. Dressing - Upper Paresh E. Dressing - Lower maxA F. Toileting modA - Sphincter Control G. Bladder control sup H. Bowel control Paresh - Transfers Control I. Bed/Chair/Wheelchair Danielle J. Toilet modA K. Tub/Shower modA - Locomotion L. Walk/Wheelchair (B) sup M. Stairs modA - Communication N. Comprehension (B) sup O. Expression (B) Paresh - Social Cognition P. Social Interaction sup Q. Problem Solving Danielle R. Memory Danielle - Endurance Good - Balance Good - Safety Awareness Good QI SCORES: - Self-Care A. Eating 04-Supervision or touching assistance B. Oral hygiene 04-Supervision or touching assistance C. Toileting hygiene 01-Dependent E. Shower/bathe self 88-Not attempted due to medical condition or safety concerns F. Upper body dressing 02-Substantial/maximal assistance G. Lower body dressing 01-Dependent H. Putting on/taking off footwear 01-Dependent - Mobility A. Roll left and right 01-Dependent B. Sit to lying 02-Substantial/maximal assistance C. Lying to sitting on side of bed 01-Dependent D. Sit to stand 88-Not attempted due to medical condition or safety concerns E. Chair/[id number]-[id number] transfer 01-Dependent F. Toilet transfer 01-Dependent G. Car transfer 88-Not attempted due to medical condition or safety concerns I. Walk 10 feet 88-Not attempted due to medical condition or safety concerns J. Walk 50 feet with two turns 88-Not attempted due to medical condition or safety concerns K. Walk 150 feet 88-Not attempted due to medical condition or safety concerns L. Walking 10 feet on uneven surfaces 88-Not attempted due to medical condition or safety concerns M. 1 step (curb) 88-Not attempted due to medical condition or safety concerns N. 4 steps 88-Not attempted due to medical condition or safety concerns O. 12 steps 88-Not attempted due to medical condition or safety concerns P. Picking up object 88-Not attempted due to medical condition or safety concerns R. Wheel 50 feet with two turns 88-Not attempted due to medical condition or safety concerns S. Wheel 150 feet 88-Not attempted due to medical condition or safety concerns - Bladder and Bowel Bladder continence 4-Always incontinent Bowel continence 3-Always incontinent - Endurance Poor - Balance Poor - Safety Awareness Poor CURRENT FUNC. DEFICITS: Self-Care, Mobility, Endurance, Balance, and Safety Awareness SIGNATURE PANEL: (LAST SCOURER)
[2019-02-22] MEDS: DOCUSATE NA/SENNA CONC 1 TAB PO SCH (20:11)
--- NOTE | 2019-02-23 00:49 | PN ---
Date of Progress Note: 02/22/2019 Subjective: Patient was seen this morning for followup. No new complaints or problems reported by gianna alberto. Lying in bed, not in distress. Objective: Vital Signs: Reviewed. HEENT: Unremarkable. Lungs: Clear to auscultation. Heart: Sounds normal. Abdomen: Soft. Bowel sounds normal. No guarding, rigidity, tenderness, distention. Extremities: No leg edema. PREPRESS TECHNICIAN: No change from yesterday. Impression: 1.Urinary tract infection. 2.Stroke. 3.Meningioma. 4.Hypertension. Plan: Patient's blood pressure remains on lower side anywhere between 95 to 110 systolic, and with t hat in mind, I will reduce the dose of amlodipine. She is currently on 10 mg daily. We will reduce the dose to 5 mg daily with instruction to hold if systolic blood pressure less than 130. Continue c urrent antibiotics, Cipro. Physical therapy to be continued under guidance of Dr. Rios. I will see her tomorrow for followup. JULIO/MODL Voice ID: [id number] Report ID: [id number]
[2019-02-23] MEDS: AMLODIPINE 5 MG TAB PO SCH (08:00)
[2019-02-23] MEDS: NYSTATIN PWDR 100000 UNIT/GM TOP SCH ×3 (08:00→20:28)
[2019-02-23] MEDS: SODIUM CHLORIDE 1 GM TAB PO SCH ×2 (09:03→17:08)
[2019-02-23] MEDS: CRANBERRY FRUIT EXTRACT 200 MG CAP PO SCH ×2 (09:04→20:28)
[2019-02-23] MEDS: FERROUS SULFATE 325 MG TAB PO SCH (09:04)
[2019-02-23] MEDS: FE SULF/FA/VIT B COMP & C TAB PO SCH (09:04)
[2019-02-23] MEDS: CIPROFLOXACIN HCL 500 MG TAB PO SCH ×2 (09:04→20:28)
[2019-02-23] MEDS: APIXABAN 2.5 MG TABLET PO SCH ×2 (09:05→20:28)
--- NOTE | 2019-02-23 15:18 | FAST ---
ENCOUNTER DATE AND TIME: 02/23/2019 08:00 (NURSE TECH) NAME GLENN WALKER DATE OF : 1955 DATE OF ADMISSION: 02/15/2019 23:31 (NURSE TECH) PHONE: AGE: 63 N# [id number] GENDER: Female ENCOUNTER PHYSICIAN: Dr. Sawyer Rios M.D. ADMISSION DIAGNOSIS: - Stroke 01 - Left Body (Right Brain) (01.1) right centrum semivola 5x3 mm DWI hypertintense lesion suggestive of acute ischemic infarct. ROLL LEFT AND RIGHT: ROLL LEFT AND RIGHT - STEP 1: Does the patient complete the activity by him/herself with no assistance (physical, verbal/nonverbal cueing, setup/clean-up)? No. ROLL LEFT AND RIGHT - STEP 2: Does the patient need only setup/clean-up assistance from one helper? No. ROLL LEFT AND RIGHT - STEP 3: Does the patient need only verbal/nonverbal cueing or touching/steadying/contact guard assistance fro m one helper? No. ROLL LEFT AND RIGHT - STEP 4: Does the patient need physical assistance - for example lifting or trunk support from one helper - wi th the helper providing less than half of the effort? Yes. 1. [id number] ADMISSION PERFORMANCE: Partial/moderate assistance CODE: 03 SIT TO LYING: SIT TO LYING - STEP 1: Does the patient complete the activity by him/herself with no assistance (physical, verbal/nonverbal cueing, setup/clean-up)? No. SIT TO LYING - STEP 2: Does the patient need only setup/clean-up assistance from one helper? No. SIT TO LYING - STEP 3: Does the patient need only verbal/nonverbal cueing or touching/steadying/contact guard assistance fro m one helper? No. SIT TO LYING - STEP 4: Does the patient need physical assistance - for example lifting or trunk support from one helper - wi th the helper providing less than half of the effort? Yes. 1. [id number] ADMISSION PERFORMANCE: Partial/moderate assistance CODE: 03 LYING TO SITTING: LYING TO SITTING ON SIDE OF BED - STEP 1: Does the patient complete the activity by him/herself with no assistance (physical, verbal/nonverbal cueing, setup/clean-up)? No. LYING TO SITTING ON SIDE OF BED - STEP 2: Does the patient need only setup/clean-up assistance from one helper? No. LYING TO SITTING ON SIDE OF BED - STEP 3: Does the patient need only verbal/nonverbal cueing or touching/steadying/contact guard assistance fro m one helper? No. LYING TO SITTING ON SIDE OF BED - STEP 4: Does the patient need physical assistance - for example lifting or trunk support from one helper - wi th the helper providing less than half of the effort? Yes. 1. [id number] ADMISSION PERFORMANCE: Partial/moderate assistance CODE: 03 SIT TO STAND: SIT TO STAND - STEP 1: Does the patient complete the activity by him/herself with no assistance (physical, verbal/nonverbal cueing, setup/clean-up)? No. SIT TO STAND - STEP 2: Does the patient need only setup/clean-up assistance from one helper? No. SIT TO STAND - STEP 3: Does the patient need only verbal/nonverbal cueing or touching/steadying/contact guard assistance fro m one helper? No. SIT TO STAND - STEP 4: Does the patient need physical assistance - for example lifting or trunk support from one helper - wi th the helper providing less than half of the effort? No. SIT TO STAND - STEP 5: Does the patient need physical assistance - for example lifting or trunk support from one helper - wi th the helper providing more than half of the effort? Yes. 1. [id number] ADMISSION PERFORMANCE: Substantial/maximal assistance CODE: 02 TRANSFERS: BED, CHAIR: CHAIR/[id number] TRANSFER - STEP 1: Does the patient complete the activity by him/herself with no assistance (physical, verbal/nonverbal cueing, setup/clean-up)? No. CHAIR/[id number] TRANSFER - STEP 2: Does the patient need only setup/clean-up assistance from one helper? No. CHAIR/[id number] TRANSFER - STEP 3: Does the patient need only verbal/nonverbal cueing or touching/steadying/contact guard assistance fro m one helper? No. CHAIR/[id number] TRANSFER - STEP 4: Does the patient need physical assistance - for example lifting or trunk support from one helper - wi th the helper providing less than half of the effort? No. CHAIR/[id number] TRANSFER - STEP 5: Does the patient need physical assistance - for example lifting or trunk support from one helper - wi th the helper providing more than half of the effort? Yes. 1. [id number] ADMISSION PERFORMANCE: Substantial/maximal assistance CODE: 02 TRANSFER TOILET: TOILET TRANSFER - STEP 1: Does the patient complete the activity by him/herself with no assistance (physical, verbal/nonverbal cueing, setup/clean-up)? No. TOILET TRANSFER - STEP 2: Does the patient need only setup/clean-up assistance from one helper? No. TOILET TRANSFER - STEP 3: Does the patient need only verbal/nonverbal cueing or touching/steadying/contact guard assistance fro m one helper? No. TOILET TRANSFER - STEP 4: Does the patient need physical assistance - for example lifting or trunk support from one helper - wi th the helper providing less than half of the effort? No. TOILET TRANSFER - STEP 5: Does the patient need physical assistance - for example lifting or trunk support from one helper - wi th the helper providing more than half of the effort? Yes. 1. [id number] ADMISSION PERFORMANCE: Substantial/maximal assistance CODE: 02 TRANSFERS: CAR: Not attempted due to environmental limitations (e.g., lack of equipment, weather constraints) CODE: 10 WALK 10 FEET: WALK 10 FEET - STEP 1: Does the patient complete the activity by him/herself with no assistance (physical, verbal/nonverbal cueing, setup/clean-up)? No. WALK 10 FEET - STEP 2: Does the patient need only setup/clean-up assistance from one helper? No. WALK 10 FEET - STEP 3: Does the patient need only verbal/nonverbal cueing or touching/steadying/contact guard assistance fro m one helper? No. WALK 10 FEET - STEP 4: Does the patient need physical assistance - for example lifting or trunk support from one helper - wi th the helper providing less than half of the effort? No. WALK 10 FEET - STEP 5: Does the patient need physical assistance - for example lifting or trunk support from one helper - wi th the helper providing more than half of the effort? Yes. 1. [id number] ADMISSION PERFORMANCE: Substantial/maximal assistance CODE: 02 WALK 50 FEET: Not attempted due to medical condition or safety concerns CODE: 88 WALK 150 FEET: Not attempted due to medical condition or safety concerns CODE: 88 WALK 10 FEET UNEVEN: Not attempted due to medical condition or safety concerns CODE: 88 1 STEP (CURB): Not attempted due to medical condition or safety concerns CODE: 88 PICKING UP OBJECT: Not attempted due to medical condition or safety concerns CODE: 88 DOES THE PATIENT USE A WHEELCHAIR/SCOOTER? Q1. DOES THE PATIENT USE A WHEELCHAIR/SCOOTER?: No CODE: 0 INDICATE THE TYPE OF WHEELCHAIR/SCOOTER USED: CODE: EXPR INDICATE THE TYPE OF WHEELCHAIR/SCOOTER USED: CODE: EXPR BLADDER AND BOWEL: CODE: EXPR CODE: EXPR SIGNATURE PANEL: The following modified sections: 1. [id number] Admission Performance, 1. [id number] Admission Performance, 1. [id number] Admission Performance, 1. [id number] Admission Performance, 1. [id number] Admission Performance, 1. [id number] Admission Performance, 1. [id number] Admission Performance, Q1. Does the patient use a wheel chair/scooter? were [electronically] signed by Marck Simon PT on WedFeb 23 2019 15:17:22 GMT-0 600 (Central Standard Time)
--- NOTE | 2019-02-23 16:56 | R.PN ---
ENCOUNTER DATE AND TIME: 02/23/2019 16:51 (FIREWORKS ASSEMBLER) NAME GLENN WALKER DATE OF : 1955 DATE OF ADMISSION: 02/15/2019 23:31 (FIREWORKS ASSEMBLER) right centrum semivola 5x3 mm DWI hypertintense lesion suggestive of acute ischemic infarctCHIEF COMP LAINT: Left sided weakness SUBJECTIVE: Pt denied any Shortness of Breath. Pt denied any depression. Ambulated 70' with moderate assistance using a rolling walker. VITAL SIGNS Temperature: 97.6 F SBP/DBP: 110/56 Pulse: 76 Resp: 16 MEDICATION ALLERGIES: No Known Drug Allergies (NKDA) ENVIRONMENTAL ALLERGIES: - Substance Allergies None Known - Other Allergies None Known NURSING: - Shower allowing shower - Bladder care per protocol - Skin care per protocol PRECAUTIONS: - Weight Bearing Precaution WBAT left LE - Fall Precaution Bed alarm TABS alarm Wheel chair alarm ACTIVITIES OOB only with supervision THERAPIES: - Occupational Therapy Cognitive Retraining. Visual Perceptual Training. - Dietary and Nutrition Adequate Nutrition. Nutritional Education. Nutritional Supplements. - Speech Therapy Cognitive Training. Expressive Language Skills. Memory Strategies. Receptive Language Skills. Speech Intelligibility Training. PHYSICAL EXAM - Gen Alert and awake Lying in bed No apparent distress Oriented to: person, time, and place - Skin No breakdown Normacephalic - Eyes No abnormalities - ENMT No abnormalities - Neck No abnormalities - CVS RRR - Chest Clear - Abd Soft - GI Non distended Deferred - No abnormalities - Ext No significant edema - MSK 4/5 weakness in both lower extremities. - Neuro 2/5 strength left upper extremity. 4/5 weakness in both lower extremities. - Psych No abnormalities ASSESSMENT: Pt. is a 63 yo Right-handed female.On 01/25/2019 Pt. presented to [facility] [place], [place] with sudden onset of left-side weakness.On 01/25/2019 she was admitted to [facility] with diagnosis right centrum semivola 5x3 mm DWI hypertintense lesion suggesti ve of acute ischemic infarct.Her impairment category is Stroke 01 - Left Body (Right Brain) (01.1).P re-morbidly, Pt. was independent/mod-I in Locomotion, Endurance, Self-Care, Balance, Transfers Contro l, Safety Awareness, Communication, and Safety Awareness and Self-Care; and she had good Sphincter Co ntrol.Currently, she has deficits of Locomotion, Self-Care, Endurance, Balance, Transfers Control, Sa fety Awareness, Social Cognition, Ambulation, Communication, and Sphincter Control.Pt. is now referre d to [facility] for acute in-patient rehabilitation in order to maximize patie nt's functional independence in activities of daily living, strength, ROM, and mobility.- Rehab Goal Patient has realistic goal of being discharged at assistance level 6-Danielle to reside at Home with Fam adriana/Relatives. MDM/PLAN: - Physical Therapy Gait dysfunction - to improve, our physical therapists will perform initial evaluation of pt's statu s upon admission and devise an individualized program for Gait Training, and Wheel Chair mobility Inability to transfer - to improve, our physical therapists will perform initial evaluation of pt's status upon admission and devise an individualized program for Bed mobility Need for home safety evaluation - to improve, our physical therapists will perform initial evaluatio n of pt's status upon admission and devise an individualized program for Home Evaluation Need in caregiver upon discharge - to improve, our physical therapists will perform initial evaluati on of pt's status upon admission and devise an individualized program for Caregiver Training New precaution - to improve, our physical therapists will perform initial evaluation of pt's status upon admission and devise an individualized program for Patient precaution education Edema - to improve, our physical therapists will perform initial evaluation of pt's status upon admi ssion and devise an individualized program for Elevation Training, and Lymphedema Therapy Poor balance - to improve, our physical therapists will perform initial evaluation of pt's status up on admission and devise an individualized program for Balance Training Poor endurance - to improve, our physical therapists will perform initial evaluation of pt's status upon admission and devise an individualized program for Endurance Training Weakness - to improve, our physical therapists will perform initial evaluation of pt's status upon a dmission and devise an individualized program for Aquatic Therapy, Neuromuscular Reeducation, and Str engthening Achieving independence - to improve, our physical therapists will perform initial evaluation of pt's status upon admission and devise an individualized program for Community Reintegration Activities - Occupational Therapy ADL deficits - to improve, our occupation therapists will perform initial evaluation of pt's status upon admission and devise an individualized program for Bathing, Bed mobility, Community Reintegratio n, Cooking, Dressing, Eating, Fine Motor Skills, Grooming, Homemaking, Kitchen Mobility, Laundry, Pat ient Education, Safety Awareness, Splinting - Positioning, Transfers(Toilet, Tub, Shower), and Wheel Chair Management Cognitive deficits - to improve, our occupation therapists will perform initial evaluation of pt's s tatus upon admission and devise an individualized program for Cognition - orientation Need for urgent care physician - to improve, our occupation therapists will perform initial evaluation of pt's status upon admission and devise an individualized program for Caregiver Training Weakness - to improve, our occupation therapists will perform initial evaluation of pt's status upon admission and devise an individualized program for Aquatic Therapy, Balance, Endurance, UE ROM, and UE strengthening - Other See attached MAR (Medication Administration Record) - Diet Type Continue Regular - Diet - Liquid Texture Continue Regular - Tube Feed Continue N/A - Bladder care per protocol - Weight Bearing Precaution WBAT left LE - Fall Precaution Bed alarm TABS alarm Wheel chair alarm - Skin care per protocol - Diet - Solid Texture Continue Regular - Shower allowing shower for Dementia, TBI, Stroke, or others FUNCTIONAL STATUS: UPDATED AT WEEKLY TEAM CONFERENCE - Bladder Same accident frequency: 7-Ind - No accidents in the past 7 days - Bowel Same accident frequency: 7-Ind - No accidents in the past 7 days - Walking Same score based on distance walked: 1(<=50ft) - Wheelchair Same score based on distance traveled: 1(<=50ft) FUNCTIONAL STATUS: - Self-Care A. Eating Ind B. Grooming sup C. Bathing sup D. Dressing - Upper Paresh E. Dressing - Lower maxA F. Toileting modA - Sphincter Control G. Bladder control sup H. Bowel control Paresh - Transfers Control I. Bed/Chair/Wheelchair Danielle J. Toilet modA K. Tub/Shower modA - Locomotion L. Walk/Wheelchair (B) sup M. Stairs modA - Communication N. Comprehension (B) sup O. Expression (B) Paresh - Social Cognition P. Social Interaction sup Q. Problem Solving Danielle R. Memory Danielle - Endurance Good - Balance Good - Safety Awareness Good QI SCORES: - Self-Care A. Eating 04-Supervision or touching assistance B. Oral hygiene 04-Supervision or touching assistance C. Toileting hygiene 01-Dependent E. Shower/bathe self 88-Not attempted due to medical condition or safety concerns F. Upper body dressing 02-Substantial/maximal assistance G. Lower body dressing 01-Dependent H. Putting on/taking off footwear 01-Dependent - Mobility A. Roll left and right 01-Dependent B. Sit to lying 02-Substantial/maximal assistance C. Lying to sitting on side of bed 01-Dependent D. Sit to stand 88-Not attempted due to medical condition or safety concerns E. Chair/[id number] transfer 01-Dependent F. Toilet transfer 01-Dependent G. Car transfer 88-Not attempted due to medical condition or safety concerns I. Walk 10 feet 88-Not attempted due to medical condition or safety concerns J. Walk 50 feet with two turns 88-Not attempted due to medical condition or safety concerns K. Walk 150 feet 88-Not attempted due to medical condition or safety concerns L. Walking 10 feet on uneven surfaces 88-Not attempted due to medical condition or safety concerns M. 1 step (curb) 88-Not attempted due to medical condition or safety concerns N. 4 steps 88-Not attempted due to medical condition or safety concerns O. 12 steps 88-Not attempted due to medical condition or safety concerns P. Picking up object 88-Not attempted due to medical condition or safety concerns R. Wheel 50 feet with two turns 88-Not attempted due to medical condition or safety concerns S. Wheel 150 feet 88-Not attempted due to medical condition or safety concerns - Bladder and Bowel Bladder continence 4-Always incontinent Bowel continence 3-Always incontinent - Endurance Poor - Balance Poor - Safety Awareness Poor CURRENT FUNC. DEFICITS: Self-Care, Mobility, Endurance, Balance, and Safety Awareness SIGNATURE PANEL: (FIREWORKS ASSEMBLER)
[2019-02-23] MEDS: DOCUSATE NA/SENNA CONC 1 TAB PO SCH (20:28)
[2019-02-24 06:21] LABS: Absolute Lymphocytes (CBC) 1.7 K/uL (0.7-4.9); Basophils % 0.4 % (0-1.3); Hematocrit 29.4 % (36.0-45.0); Lymphocytes % 28.6 % (15.3-44.8); MPV 8.9 fL (7.6-11.3); RBC Red Blood Cell Count 3.05 M/uL (3.86-4.86)
[2019-02-24 06:27] LABS: Albumin 2.9 g/dL (3.4-5.0); BUN Blood Urea Nitrogen 23 mg/dL (7-18); Bicarbonate 28 mmol/L (21-32); Glucose Level 108 mg/dL (74-106); Magnesium 2.4 mg/dL (1.8-2.4); Potassium 3.7 mmol/L (3.5-5.1); Sodium Level 143 mmol/L (136-145)
[2019-02-24] MEDS: NYSTATIN PWDR 100000 UNIT/GM TOP SCH (08:00)
[2019-02-24] MEDS: AMLODIPINE 5 MG TAB PO SCH (08:00)
[2019-02-24] MEDS: SODIUM CHLORIDE 1 GM TAB PO SCH ×2 (09:00→15:59)
[2019-02-24] MEDS: APIXABAN 2.5 MG TABLET PO SCH ×2 (09:00→21:20)
[2019-02-24] MEDS: FE SULF/FA/VIT B COMP & C TAB PO SCH (09:00)
[2019-02-24] MEDS: CRANBERRY FRUIT EXTRACT 200 MG CAP PO SCH ×2 (09:00→21:19)
[2019-02-24] MEDS: FERROUS SULFATE 325 MG TAB PO SCH (09:00)
[2019-02-24] MEDS: CIPROFLOXACIN HCL 500 MG TAB PO SCH ×2 (09:00→21:19)
--- NOTE | 2019-02-24 10:00 | P.RH.PN ---
Estimated Length of Stay: 25 Expected Discharge Date: 03/11/19 Discharge Disposition Plan: Home Family Support: Yes Custodial Goal: Mobility, Transfers, Self Care Vital Signs: Last Vital Signs Temp 97.6 F 02/23/19 18:44 Pulse 76 02/23/19 18:44 Resp 16 02/23/19 18:44 BP 100/56 L 02/23/19 18:44 Pulse Ox 99 02/23/19 18:44 Laboratory: Laboratory Last Values WBC 6.0 K/uL (4.3-10.9) D 02/24/19 05:36 RBC 3.05 M/uL (3.86-4.86) L 02/24/19 05:36 Hgb 9.9 g/dL (12.0-15.0) L 02/24/19 05:36 Hct 29.4 % (36.0-45.0) L 02/24/19 05:36 MCV 96.5 fL (80-100) 02/24/19 05:36 MCH 32.5 pg (27.0-35.0) 02/24/19 05:36 MCHC 33.7 g/dL (32.0-36.0) 02/24/19 05:36 RDW 15.2 % (12.1-15.2) 02/24/19 05:36 Plt Count 223 K/uL (152-406) D 02/24/19 05:36 MPV 8.9 fL (7.6-11.3) 02/24/19 05:36 Neutrophils % 55.9 % (41.7-73.7) 02/24/19 05:36 Lymphocytes % 28.6 % (15.3-44.8) 02/24/19 05:36 Monocytes % 12.6 % (3.3-12.3) H 02/24/19 05:36 Eosinophils % 2.5 % (0-4.4) 02/24/19 05:36 Basophils % 0.4 % (0-1.3) 02/24/19 05:36 Absolute Neutrophils 3.4 K/uL (1.8-8.0) 02/24/19 05:36 Absolute Lymphocytes 1.7 K/uL (0.7-4.9) 02/24/19 05:36 Absolute Monocytes 0.8 K/uL (0.1-1.3) 02/24/19 05:36 Absolute Eosinophils 0.2 K/uL (0-0.5) 02/24/19 05:36 Absolute Basophils 0.0 K/uL (0-0.5) 02/24/19 05:36 Sodium 143 mmol/L (136-145) 02/24/19 05:47 Potassium 3.7 mmol/L (3.5-5.1) 02/24/19 05:47 Chloride 111 mmol/L (98-107) H 02/24/19 05:47 Carbon Dioxide 28 mmol/L (21-32) 02/24/19 05:47 BUN 23 mg/dL (7-18) H 02/24/19 05:47 Creatinine 0.33 mg/dL (0.55-1.3) L 02/24/19 05:47 Estimated GFR > 90 mL/min (=/>90) 02/24/19 05:47 Glucose 108 mg/dL (74-106) H 02/24/19 05:47 Calcium 8.1 mg/dL (8.5-10.1) L 02/24/19 05:47 Magnesium 2.4 mg/dL (1.8-2.4) 02/24/19 05:47 Albumin 2.9 g/dL (3.4-5.0) L 02/24/19 05:47 Prealbumin 22.0 mg/dL (20-40) 02/24/19 05:47 Urine Color Yellow 02/17/19 21:23 Urine Appearance Cloudy 02/17/19 21:23 Urine pH 6.5 (5.0-7.0) 02/17/19 21:23 Ur Specific [place] 1.020 (1.005-1.030) 02/17/19 21:23 Urine Ketones Negative (NEG) 02/17/19 21:23 Urine Blood Negative (NEG) 02/17/19 21:23 Urine Nitrite Negative (NEG) 02/17/19 21:23 Urine Bilirubin Negative (NEG) 02/17/19 21:23 Urine Urobilinogen 1.0 mg/dL (0.2-1.0) 02/17/19 21:23 Ur Leukocyte Esterase 2+ (NEG) H 02/17/19 21:23 Urine RBC <5 /HPF (NONE SEEN) 02/17/19 21:23 Urine WBC 10-20 /HPF (<5) H 02/17/19 21:23 Ur Squamous Epith Cells 5-10 /HPF (NONE SEEN) H 02/17/19 21:23 Urine Bacteria 20-50 /HPF (<20) H 02/17/19 21:23 Urine Culture Reflexed Reflexed 02/17/19 21:23 Urine Glucose Negative (NEG) 02/17/19 21:23 Urine Total Protein Negative (NEG) 02/17/19 21:23 Weight: 124 lb 9.6 oz Wound Present: No Closed Surgical Incision Present: Yes Negative Pressure Wound Therapy Present: No Physician Update: Labs reviewed and are stable. She is making fair progress due to marked bilateral lower and moderate upper extremity weakness. Ambulated 20', and transfers with maximum assistance. She has difficulty focusing but has 29/ 30 on the MMSE. Medical Issues: Patient has UTI and on Ciprofloxacin 500mg BID PO. Patient is incontinent daily with bladder and always continent with bowel. Functional Improvement: pt has demonstrated progress with her functional abilities and postural strength. pt has demonstrated ability to being ambulation using RW. pt does rapidly fatigue and exhibits trunk weakness; however, these are improving. pt remains motivated and participates to the best of her ability. Skilled PT services remain necessary to enhance functional performance and safety. Speech Therapy Update: Patient obtained a 14/15 on the BIMS and a 29/30 on the MMSE indicating intact cognitive-linguistic skills. Patient's ability to return home and function at MOD-I to I is not limited by her speech, language, or cognitive-linguistic functions at this time. Summary: Patient's care plan and senior living goals have been reviewed and revised as necessary. Please see the Rehabilitation Signature page for all necessary signatures.
--- NOTE | 2019-02-24 16:10 | FAST ---
ENCOUNTER DATE AND TIME: 02/24/2019 08:00 (BOX ANNEALER) NAME GLENN WALKER DATE OF : 1955 DATE OF ADMISSION: 02/15/2019 23:31 (BOX ANNEALER) PHONE: AGE: 63 N# [id number] GENDER: Female ENCOUNTER PHYSICIAN: Dr. Sawyer Rios M.D. ADMISSION DIAGNOSIS: - Stroke 01 - Left Body (Right Brain) (01.1) right centrum semivola 5x3 mm DWI hypertintense lesion suggestive of acute ischemic infarct. EATING: Not assessed/no information CODE: - ORAL HYGIENE: Not assessed/no information CODE: - TOILETING HYGIENE: Not assessed/no information CODE: - BATHING: SHOWER/BATHE SELF - STEP 1: Does the patient complete the activity by him/herself with no assistance (physical, verbal/nonverbal cueing, setup/clean-up)? No. SHOWER/BATHE SELF - STEP 2: Does the patient need only setup/clean-up assistance from one helper? No. SHOWER/BATHE SELF - STEP 3: Does the patient need only verbal/nonverbal cueing or touching/steadying/contact guard assistance fro m one helper? No. SHOWER/BATHE SELF - STEP 4: Does the patient need physical assistance - for example lifting or trunk support from one helper - wi th the helper providing less than half of the effort? Yes. 1. [id number] ADMISSION PERFORMANCE: Partial/moderate assistance CODE: 03 DRESSING - UPPER BODY: DRESSING - UPPER BODY - STEP 1: Does the patient complete the activity by him/herself with no assistance (physical, verbal/nonverbal cueing, setup/clean-up)? No. DRESSING - UPPER BODY - STEP 2: Does the patient need only setup/clean-up assistance from one helper? No. DRESSING - UPPER BODY - STEP 3: Does the patient need only verbal/nonverbal cueing or touching/steadying/contact guard assistance fro m one helper? No. DRESSING - UPPER BODY - STEP 4: Does the patient need physical assistance - for example lifting or trunk support from one helper - wi th the helper providing less than half of the effort? Yes. 1. [id number] ADMISSION PERFORMANCE: Partial/moderate assistance CODE: 03 DRESSING - LOWER BODY: DRESSING - LOWER BODY - STEP 1: Does the patient complete the activity by him/herself with no assistance (physical, verbal/nonverbal cueing, setup/clean-up)? No. DRESSING - LOWER BODY - STEP 2: Does the patient need only setup/clean-up assistance from one helper? No. DRESSING - LOWER BODY - STEP 3: Does the patient need only verbal/nonverbal cueing or touching/steadying/contact guard assistance fro m one helper? No. DRESSING - LOWER BODY - STEP 4: Does the patient need physical assistance - for example lifting or trunk support from one helper - wi th the helper providing less than half of the effort? Yes. 1. [id number] ADMISSION PERFORMANCE: Partial/moderate assistance CODE: 03 PUTTING ON/TAKING OFF FOOTWEAR: FOOTWEAR - STEP 1: Does the patient complete the activity by him/herself with no assistance (physical, verbal/nonverbal cueing, setup/clean-up)? No. FOOTWEAR - STEP 2: Does the patient need only setup/clean-up assistance from one helper? No. FOOTWEAR - STEP 3: Does the patient need only verbal/nonverbal cueing or touching/steadying/contact guard assistance fro m one helper? No. FOOTWEAR - STEP 4: Does the patient need physical assistance - for example lifting or trunk support from one helper - wi th the helper providing less than half of the effort? Yes. 1. [id number] ADMISSION PERFORMANCE: Partial/moderate assistance CODE: 03 DOES THE PATIENT USE A WHEELCHAIR/SCOOTER? CODE: EXPR INDICATE THE TYPE OF WHEELCHAIR/SCOOTER USED: CODE: EXPR INDICATE THE TYPE OF WHEELCHAIR/SCOOTER USED: CODE: EXPR BLADDER AND BOWEL: CODE: EXPR CODE: EXPR SIGNATURE PANEL: The following modified sections: 1. [id number] Admission Performance, 1. [id number] Admission Performance, 1. [id number] Admission Performance, 1. [id number] Admission Performance were [electronically] signed by Dolores Ott OT on WedFeb 24 2019 16:08:56 GMT-0600 (Central Standard Time)
--- NOTE | 2019-02-24 18:35 | PN ---
Date of Progress Note: 02/24/2019 Subjective: Patient was seen this morning for followup. No new complaints or problems reported by gianna alberto. She was sitting in wheelchair. Denied any complaints. Objective: Vital Signs: Reviewed. HEENT: Unremarkable. Lungs: Clear to auscultation. Heart: Sounds normal. Abdomen: Soft. Bowel sounds normal. No guarding, rigidity, tenderness, or distention. Extremities: No leg edema. Laboratory Data: White count 6, hemoglobin 9.9, platelets 223. Sodium 143, potassium 3.7, chloride 111, bicarb 28, BUN 23, creatinine 0.33, glucose 108. Impression: 1.Stroke. 2.Meningioma. 3.Hypertension. Plan: We will go ahead and continue current medications. Blood pressure is running on low side arou nd 99 to 100 systolic. There is parameter to hold her antihypertensive medication if systolic less t gonzalez 130. We will continue current antibiotics. Continue physical therapy under guidance of Dr. Dante wilson. JULIO/MODL Voice ID: [id number] Report ID: [id number]
[2019-02-24] MEDS: DOCUSATE NA/SENNA CONC 1 TAB PO SCH (21:19)
[2019-02-24] MEDS: NYSTATIN PWDR 100000 UNIT/GM TOP PRN (21:23)
--- NOTE | 2019-02-25 02:33 | FAST ---
SHIFT START DATE/TIME: 02/24/2019 19:00 (CABLE WAY OPERATOR) SHIFT END DATE/TIME: 02/25/2019 07:00 (CABLE WAY OPERATOR) NAME GLENN WALKER DATE OF : 1955 DATE OF ADMISSION: 02/15/2019 23:31 (CABLE WAY OPERATOR) PHONE: AGE: 63 N# [id number] GENDER: Female ENCOUNTER PHYSICIAN: Dr. Sawyer Rios M.D. ADMISSION DIAGNOSIS: - Stroke 01 - Left Body (Right Brain) (01.1) right centrum semivola 5x3 mm DWI hypertintense lesion suggestive of acute ischemic infarct. EATING: Not assessed/no information CODE: - ORAL HYGIENE: ORAL HYGIENE - STEP 1: Does the patient complete the activity by him/herself with no assistance (physical, verbal/nonverbal cueing, setup/clean-up)? No. ORAL HYGIENE - STEP 2: Does the patient need only setup/clean-up assistance from one helper? No. ORAL HYGIENE - STEP 3: Does the patient need only verbal/nonverbal cueing or touching/steadying/contact guard assistance fro m one helper? Yes. 1. [id number] ADMISSION PERFORMANCE: Supervision or touching assistance CODE: 04 TOILETING HYGIENE: TOILETING HYGIENE - STEP 1: Does the patient complete the activity by him/herself with no assistance (physical, verbal/nonverbal cueing, setup/clean-up)? No. TOILETING HYGIENE - STEP 2: Does the patient need only setup/clean-up assistance from one helper? No. TOILETING HYGIENE - STEP 3: Does the patient need only verbal/nonverbal cueing or touching/steadying/contact guard assistance fro m one helper? No. TOILETING HYGIENE - STEP 4: Does the patient need physical assistance - for example lifting or trunk support from one helper - wi th the helper providing less than half of the effort? No. TOILETING HYGIENE - STEP 5: Does the patient need physical assistance - for example lifting or trunk support from one helper - wi th the helper providing more than half of the effort? Yes. 1. [id number] ADMISSION PERFORMANCE: Substantial/maximal assistance CODE: 02 BATHING: Not assessed/no information CODE: - DRESSING - UPPER BODY: Not assessed/no information CODE: - DRESSING - LOWER BODY: Not assessed/no information CODE: - PUTTING ON/TAKING OFF FOOTWEAR: Not assessed/no information CODE: - ROLL LEFT AND RIGHT: ROLL LEFT AND RIGHT - STEP 1: Does the patient complete the activity by him/herself with no assistance (physical, verbal/nonverbal cueing, setup/clean-up)? No. ROLL LEFT AND RIGHT - STEP 2: Does the patient need only setup/clean-up assistance from one helper? No. ROLL LEFT AND RIGHT - STEP 3: Does the patient need only verbal/nonverbal cueing or touching/steadying/contact guard assistance fro m one helper? No. ROLL LEFT AND RIGHT - STEP 4: Does the patient need physical assistance - for example lifting or trunk support from one helper - wi th the helper providing less than half of the effort? No. ROLL LEFT AND RIGHT - STEP 5: Does the patient need physical assistance - for example lifting or trunk support from one helper - wi th the helper providing more than half of the effort? Yes. 1. [id number] ADMISSION PERFORMANCE: Substantial/maximal assistance CODE: 02 SIT TO LYING: SIT TO LYING - STEP 1: Does the patient complete the activity by him/herself with no assistance (physical, verbal/nonverbal cueing, setup/clean-up)? No. SIT TO LYING - STEP 2: Does the patient need only setup/clean-up assistance from one helper? No. SIT TO LYING - STEP 3: Does the patient need only verbal/nonverbal cueing or touching/steadying/contact guard assistance fro m one helper? No. SIT TO LYING - STEP 4: Does the patient need physical assistance - for example lifting or trunk support from one helper - wi th the helper providing less than half of the effort? No. SIT TO LYING - STEP 5: Does the patient need physical assistance - for example lifting or trunk support from one helper - wi th the helper providing more than half of the effort? No. SIT TO LYING - STEP 6: Does the helper provide all of the effort? OR Is the assistance of two or more helpers required to co mplete the activity? Yes. 1. [id number] ADMISSION PERFORMANCE: Dependent CODE: 01 LYING TO SITTING: LYING TO SITTING ON SIDE OF BED - STEP 1: Does the patient complete the activity by him/herself with no assistance (physical, verbal/nonverbal cueing, setup/clean-up)? No. LYING TO SITTING ON SIDE OF BED - STEP 2: Does the patient need only setup/clean-up assistance from one helper? No. LYING TO SITTING ON SIDE OF BED - STEP 3: Does the patient need only verbal/nonverbal cueing or touching/steadying/contact guard assistance fro m one helper? No. LYING TO SITTING ON SIDE OF BED - STEP 4: Does the patient need physical assistance - for example lifting or trunk support from one helper - wi th the helper providing less than half of the effort? No. LYING TO SITTING ON SIDE OF BED - STEP 5: Does the patient need physical assistance - for example lifting or trunk support from one helper - wi th the helper providing more than half of the effort? No. LYING TO SITTING ON SIDE OF BED - STEP 6: Does the helper provide all of the effort? OR Is the assistance of two or more helpers required to co mplete the activity? Yes. 1. [id number] ADMISSION PERFORMANCE: Dependent CODE: 01 SIT TO STAND: SIT TO STAND - STEP 1: Does the patient complete the activity by him/herself with no assistance (physical, verbal/nonverbal cueing, setup/clean-up)? No. SIT TO STAND - STEP 2: Does the patient need only setup/clean-up assistance from one helper? No. SIT TO STAND - STEP 3: Does the patient need only verbal/nonverbal cueing or touching/steadying/contact guard assistance fro m one helper? No. SIT TO STAND - STEP 4: Does the patient need physical assistance - for example lifting or trunk support from one helper - wi th the helper providing less than half of the effort? No. SIT TO STAND - STEP 5: Does the patient need physical assistance - for example lifting or trunk support from one helper - wi th the helper providing more than half of the effort? No. SIT TO STAND - STEP 6: Does the helper provide all of the effort? OR Is the assistance of two or more helpers required to co mplete the activity? Yes. 1. [id number] ADMISSION PERFORMANCE: Dependent CODE: 01 TRANSFERS: BED, CHAIR: CHAIR/[id number] TRANSFER - STEP 1: Does the patient complete the activity by him/herself with no assistance (physical, verbal/nonverbal cueing, setup/clean-up)? No. CHAIR/[id number] TRANSFER - STEP 2: Does the patient need only setup/clean-up assistance from one helper? No. CHAIR/[id number] TRANSFER - STEP 3: Does the patient need only verbal/nonverbal cueing or touching/steadying/contact guard assistance fro m one helper? No. CHAIR/[id number] TRANSFER - STEP 4: Does the patient need physical assistance - for example lifting or trunk support from one helper - wi th the helper providing less than half of the effort? No. CHAIR/[id number] TRANSFER - STEP 5: Does the patient need physical assistance - for example lifting or trunk support from one helper - wi th the helper providing more than half of the effort? No. CHAIR/[id number] TRANSFER - STEP 6: Does the helper provide all of the effort? OR Is the assistance of two or more helpers required to co mplete the activity? Yes. 1. [id number] ADMISSION PERFORMANCE: Dependent CODE: TRANSFER TOILET: TOILET TRANSFER - STEP 1: Does the patient complete the activity by him/herself with no assistance (physical, verbal/nonverbal cueing, setup/clean-up)? No. TOILET TRANSFER - STEP 2: Does the patient need only setup/clean-up assistance from one helper? No. TOILET TRANSFER - STEP 3: Does the patient need only verbal/nonverbal cueing or touching/steadying/contact guard assistance fro m one helper? No. TOILET TRANSFER - STEP 4: Does the patient need physical assistance - for example lifting or trunk support from one helper - wi th the helper providing less than half of the effort? No. TOILET TRANSFER - STEP 5: Does the patient need physical assistance - for example lifting or trunk support from one helper - wi th the helper providing more than half of the effort? No. TOILET TRANSFER - STEP 6: Does the helper provide all of the effort? OR Is the assistance of two or more helpers required to co mplete the activity? Yes. 1. [id number] ADMISSION PERFORMANCE: Dependent CODE: 01 TRANSFERS: CAR: Not assessed/no information CODE: - WALK 10 FEET: Not assessed/no information CODE: - 1 STEP (CURB): Not assessed/no information CODE: - PICKING UP OBJECT: Not assessed/no information CODE: - DOES THE PATIENT USE A WHEELCHAIR/SCOOTER? CODE: EXPR WHEEL 50 FEET WITH TWO TURNS: Not assessed/no information CODE: - INDICATE THE TYPE OF WHEELCHAIR/SCOOTER USED: CODE: EXPR WHEEL 150 FEET: Not assessed/no information CODE: - INDICATE THE TYPE OF WHEELCHAIR/SCOOTER USED: CODE: EXPR BLADDER AND BOWEL: H350. BLADDER CONTINENCE (3-DAY ASSESSMENT PERIOD): Incontinent less than daily (e.g., once or twice during the 3-day assessment period) CODE: 2 H400. BOWEL CONTINENCE (3-DAY ASSESSMENT PERIOD): Occasionally incontinent (one episode of bowel incontinence) CODE: 1
[2019-02-25] MEDS: CIPROFLOXACIN HCL 500 MG TAB PO SCH ×2 (07:45→19:29)
[2019-02-25] MEDS: AMLODIPINE 5 MG TAB PO SCH (07:45)
[2019-02-25] MEDS: CRANBERRY FRUIT EXTRACT 200 MG CAP PO SCH ×2 (07:48→19:28)
[2019-02-25] MEDS: SODIUM CHLORIDE 1 GM TAB PO SCH ×2 (07:48→16:53)
[2019-02-25] MEDS: FE SULF/FA/VIT B COMP & C TAB PO SCH (07:48)
[2019-02-25] MEDS: FERROUS SULFATE 325 MG TAB PO SCH (07:49)
[2019-02-25] MEDS: APIXABAN 2.5 MG TABLET PO SCH ×2 (07:49→19:28)
[2019-02-25] MEDS: NYSTATIN PWDR 100000 UNIT/GM TOP PRN ×2 (09:30→12:46)
--- NOTE | 2019-02-25 17:10 | PN ---
Date of Progress Note: 02/25/2019 Subjective: Patient was seen this morning for followup, sitting in wheelchair, feeling much better t blaire than last few days. Objective: Vital Signs: Reviewed. HEENT: Unremarkable. Lungs: Clear to auscultation. Heart: Sounds normal. Abdomen: Soft, bowel sounds normal. No guarding, rigidity, tenderness, distention. Extremities: No leg edema. Neurological: Unchanged, except improvement in her range of motion of the left foot. Plantar flexio n and extension are much better than before. Impression: 1.Stroke. 2.Meningioma. 3.Hypertension. Plan: Patient's systolic blood pressure is around 120. We will continue current antihypertensive me dication with parameters to hold depending on the systolic blood pressure readings. Continue current DVT prophylaxis and physical therapy under guidance of Dr. Rios. JULIO/MODL Voice ID: [id number] Report ID: [id number]
[2019-02-25] MEDS: DOCUSATE NA/SENNA CONC 1 TAB PO SCH ×2 (19:28→21:00)
[2019-02-26] MEDS: AMLODIPINE 5 MG TAB PO SCH (07:39)
[2019-02-26] MEDS: CRANBERRY FRUIT EXTRACT 200 MG CAP PO SCH ×2 (07:39→19:43)
[2019-02-26] MEDS: FERROUS SULFATE 325 MG TAB PO SCH (07:40)
[2019-02-26] MEDS: SODIUM CHLORIDE 1 GM TAB PO SCH ×2 (07:40→16:38)
[2019-02-26] MEDS: APIXABAN 2.5 MG TABLET PO SCH ×2 (07:40→19:43)
[2019-02-26] MEDS: FE SULF/FA/VIT B COMP & C TAB PO SCH (07:40)
[2019-02-26] MEDS: NYSTATIN PWDR 100000 UNIT/GM TOP PRN ×2 (09:17→13:43)
--- NOTE | 2019-02-26 10:56 | PN ---
Date of Progress Note: 02/23/2019 Subjective: Patient was seen for followup in the morning. No new complaints problems reported by he r. Lying in bed, not in distress. Denies any headache, nausea, vomiting. No constipation problem. No abdominal pain. Objective: VITAL SIGNS: Reviewed. HEENT: Unremarkable. LUNGS: Clear to auscultation. HEART: Sounds normal. ABDOMEN: Soft. Bowel sounds normal. No guarding, rigidity, tenderness, or distention. EXTREMITIES: No leg edema. Impression: 1.Stroke. 2.Urinary tract infection. 3.Meningioma. 4.Hypertension. Plan: We will continue current medications. Monitor vital signs and continue blood pressure medicat ion as per order. Continue DVT prophylaxis using Eliquis and physical therapy to be continued under guidance of Dr. Rios. I will see her tomorrow for followup. JULIO/MODFabrice Voice ID: [id number] Report ID: [id number]
--- NOTE | 2019-02-26 11:35 | PN ---
Date of Progress Note: 02/26/2019 Subjective: Patient was seen this morning for followup. No new complaints or problems reported by gianna alberto. She was sitting in wheelchair, eating breakfast this morning, complaining of some numbness i n her foot, as she reported that during nighttime she had her foot in an odd position on the bedside instead of being elevated like she normally does, but after she woke up, it is getting better. She i s able to move her foot and legs just like the way she did before. There is no restraint. No such t ingling, numbness problem in hands. Objective: Vital Signs: Reviewed. HEENT: Unremarkable. Lungs: Clear to auscultation. Heart: Sounds normal. Abdomen: Soft. Bowel sounds normal. No guarding, rigidity, tenderness, or distention. Extremities: No leg edema. Neuro: Unchanged. Impression: 1.Stroke. 2.Meningioma. 3.Hypertension. Plan: We will continue current medications. Continue DVT prophylaxis. Blood pressure is much lorna r than the few days ago. Continue physical therapy under guidance of Dr. Rios. JULIO/MODL Voice ID: [id number] Report ID: [id number]
[2019-02-26] MEDS: DOCUSATE NA/SENNA CONC 1 TAB PO SCH ×2 (19:43→21:00)
[2019-02-27] MEDS: APIXABAN 2.5 MG TABLET PO SCH ×2 (09:24→20:11)
[2019-02-27] MEDS: CRANBERRY FRUIT EXTRACT 200 MG CAP PO SCH ×2 (09:24→20:11)
[2019-02-27] MEDS: AMLODIPINE 5 MG TAB PO SCH (09:24)
[2019-02-27] MEDS: FERROUS SULFATE 325 MG TAB PO SCH (09:24)
[2019-02-27] MEDS: SODIUM CHLORIDE 1 GM TAB PO SCH ×2 (09:24→16:35)
[2019-02-27] MEDS: FE SULF/FA/VIT B COMP & C TAB PO SCH (09:24)
--- NOTE | 2019-02-27 17:53 | R.PN ---
ENCOUNTER DATE AND TIME: 02/27/2019 17:47 (CHAPLAIN) NAME GLENN WALKER DATE OF : 1955 DATE OF ADMISSION: 02/15/2019 23:31 (CHAPLAIN) right centrum semivola 5x3 mm DWI hypertintense lesion suggestive of acute ischemic infarctCHIEF COMP LAINT: Left sided weakness SUBJECTIVE: Pt denied any Shortness of Breath. Pt denied any depression. Mobilized wheelchair 50' with moderate assistance. Ambulated 70' with moderate assistance using a r olling walker. VITAL SIGNS Temperature: 97.2 F SBP/DBP: 135/65 Pulse: 79 Resp: 16 MEDICATION ALLERGIES: No Known Drug Allergies (NKDA) ENVIRONMENTAL ALLERGIES: - Substance Allergies None Known - Other Allergies None Known NURSING: - Shower allowing shower - Bladder care per protocol - Skin care per protocol PRECAUTIONS: - Weight Bearing Precaution WBAT left LE - Fall Precaution Bed alarm TABS alarm Wheel chair alarm ACTIVITIES OOB only with supervision THERAPIES: - Occupational Therapy Cognitive Retraining. Visual Perceptual Training. - Dietary and Nutrition Adequate Nutrition. Nutritional Education. Nutritional Supplements. - Speech Therapy Cognitive Training. Expressive Language Skills. Memory Strategies. Receptive Language Skills. Speech Intelligibility Training. PHYSICAL EXAM - Gen Alert and awake Lying in bed No apparent distress Oriented to: person, time, and place - Skin No breakdown Normacephalic - Eyes No abnormalities - ENMT No abnormalities - Neck No abnormalities - CVS RRR - Chest Clear - Abd Soft - GI Non distended Deferred - No abnormalities - Ext No significant edema - MSK 4/5 weakness in both lower extremities. - Neuro 2/5 strength left upper extremity. 4/5 weakness in both lower extremities. - Psych No abnormalities ASSESSMENT: Pt. is a 63 yo Right-handed female.On 01/25/2019 Pt. presented to [facility] with sudden onset of left-side weakness.On 01/25/2019 she was admitted to [facility] with diagnosis right centrum semivola 5x3 mm DWI hypertintense lesion suggesti ve of acute ischemic infarct.Her impairment category is Stroke 01 - Left Body (Right Brain) (01.1).P re-morbidly, Pt. was independent/mod-I in Locomotion, Endurance, Self-Care, Balance, Transfers Contro l, Safety Awareness, Communication, and Safety Awareness and Self-Care; and she had good Sphincter Co ntrol.Currently, she has deficits of Locomotion, Self-Care, Endurance, Balance, Transfers Control, Sa fety Awareness, Social Cognition, Ambulation, Communication, and Sphincter Control.Pt. is now referre d to [facility] for acute in-patient rehabilitation in order to maximize patie nt's functional independence in activities of daily living, strength, ROM, and mobility.- Rehab Goal Patient has realistic goal of being discharged at assistance level 6-Danielle to reside at Home with Fam adriana/Relatives. MDM/PLAN: - Physical Therapy Gait dysfunction - to improve, our physical therapists will perform initial evaluation of pt's statu s upon admission and devise an individualized program for Gait Training, and Wheel Chair mobility Inability to transfer - to improve, our physical therapists will perform initial evaluation of pt's status upon admission and devise an individualized program for Bed mobility Need for home safety evaluation - to improve, our physical therapists will perform initial evaluatio n of pt's status upon admission and devise an individualized program for Home Evaluation Need in caregiver upon discharge - to improve, our physical therapists will perform initial evaluati on of pt's status upon admission and devise an individualized program for Caregiver Training New precaution - to improve, our physical therapists will perform initial evaluation of pt's status upon admission and devise an individualized program for Patient precaution education Edema - to improve, our physical therapists will perform initial evaluation of pt's status upon admi ssion and devise an individualized program for Elevation Training, and Lymphedema Therapy Poor balance - to improve, our physical therapists will perform initial evaluation of pt's status up on admission and devise an individualized program for Balance Training Poor endurance - to improve, our physical therapists will perform initial evaluation of pt's status upon admission and devise an individualized program for Endurance Training Weakness - to improve, our physical therapists will perform initial evaluation of pt's status upon a dmission and devise an individualized program for Aquatic Therapy, Neuromuscular Reeducation, and Str engthening Achieving independence - to improve, our physical therapists will perform initial evaluation of pt's status upon admission and devise an individualized program for Community Reintegration Activities - Occupational Therapy ADL deficits - to improve, our occupation therapists will perform initial evaluation of pt's status upon admission and devise an individualized program for Bathing, Bed mobility, Community Reintegratio n, Cooking, Dressing, Eating, Fine Motor Skills, Grooming, Homemaking, Kitchen Mobility, Laundry, Pat ient Education, Safety Awareness, Splinting - Positioning, Transfers(Toilet, Tub, Shower), and Wheel Chair Management Cognitive deficits - to improve, our occupation therapists will perform initial evaluation of pt's s tatus upon admission and devise an individualized program for Cognition - orientation Need for critical care clinical nurse specialist - to improve, our occupation therapists will perform initial evaluation of pt's status upon admission and devise an individualized program for Caregiver Training Weakness - to improve, our occupation therapists will perform initial evaluation of pt's status upon admission and devise an individualized program for Aquatic Therapy, Balance, Endurance, UE ROM, and UE strengthening - Other See attached MAR (Medication Administration Record) - Diet Type Continue Regular - Diet - Liquid Texture Continue Regular - Tube Feed Continue N/A - Bladder care per protocol - Weight Bearing Precaution WBAT left LE - Fall Precaution Bed alarm TABS alarm Wheel chair alarm - Skin care per protocol - Diet - Solid Texture Continue Regular - Shower allowing shower for Dementia, TBI, Stroke, or others FUNCTIONAL STATUS: UPDATED AT WEEKLY TEAM CONFERENCE - Bladder Same accident frequency: 7-Ind - No accidents in the past 7 days - Bowel Same accident frequency: 7-Ind - No accidents in the past 7 days - Walking Same score based on distance walked: 1(<=50ft) - Wheelchair Same score based on distance traveled: 1(<=50ft) FUNCTIONAL STATUS: - Self-Care A. Eating Ind B. Grooming sup C. Bathing sup D. Dressing - Upper Paresh E. Dressing - Lower maxA F. Toileting modA - Sphincter Control G. Bladder control sup H. Bowel control Paresh - Transfers Control I. Bed/Chair/Wheelchair Danielle J. Toilet modA K. Tub/Shower modA - Locomotion L. Walk/Wheelchair (B) sup M. Stairs modA - Communication N. Comprehension (B) sup O. Expression (B) Paresh - Social Cognition P. Social Interaction sup Q. Problem Solving Danielle R. Memory Danielle - Endurance Good - Balance Good - Safety Awareness Good QI SCORES: - Self-Care A. Eating 04-Supervision or touching assistance B. Oral hygiene 04-Supervision or touching assistance C. Toileting hygiene 01-Dependent E. Shower/bathe self 88-Not attempted due to medical condition or safety concerns F. Upper body dressing 02-Substantial/maximal assistance G. Lower body dressing 01-Dependent H. Putting on/taking off footwear 01-Dependent - Mobility A. Roll left and right 01-Dependent B. Sit to lying 02-Substantial/maximal assistance C. Lying to sitting on side of bed 01-Dependent D. Sit to stand 88-Not attempted due to medical condition or safety concerns E. Chair/ufq-[id number] transfer 01-Dependent F. Toilet transfer 01-Dependent G. Car transfer 88-Not attempted due to medical condition or safety concerns I. Walk 10 feet 88-Not attempted due to medical condition or safety concerns J. Walk 50 feet with two turns 88-Not attempted due to medical condition or safety concerns K. Walk 150 feet 88-Not attempted due to medical condition or safety concerns L. Walking 10 feet on uneven surfaces 88-Not attempted due to medical condition or safety concerns M. 1 step (curb) 88-Not attempted due to medical condition or safety concerns N. 4 steps 88-Not attempted due to medical condition or safety concerns O. 12 steps 88-Not attempted due to medical condition or safety concerns P. Picking up object 88-Not attempted due to medical condition or safety concerns R. Wheel 50 feet with two turns 88-Not attempted due to medical condition or safety concerns S. Wheel 150 feet 88-Not attempted due to medical condition or safety concerns - Bladder and Bowel Bladder continence 4-Always incontinent Bowel continence 3-Always incontinent - Endurance Poor - Balance Poor - Safety Awareness Poor CURRENT FUNC. DEFICITS: Self-Care, Mobility, Endurance, Balance, and Safety Awareness SIGNATURE PANEL: (CHAPLAIN)
[2019-02-27] MEDS: DOCUSATE NA/SENNA CONC 1 TAB PO SCH (20:11)
--- NOTE | 2019-02-28 00:24 | PN ---
Date of Progress Note: 02/27/2019 Subjective: Patient was seen for followup in the morning. She was lying in bed, not in distress. Objective: Vital Signs: Reviewed. HEENT: Unremarkable. Lungs: Clear to auscultation. Heart: Sounds normal. Abdomen: Soft. Bowel sounds normal. No guarding, rigidity, tenderness, or distention. Extremities: No leg edema. Impression: 1.Stroke. 2.Hypertension. Plan: We will continue current medications. We will continue physical therapy under guidance of Dr. Rios. I will see her tomorrow for followup. JULIO/MODL Voice ID: [id number] Report ID: [id number]
[2019-02-28] MEDS: AMLODIPINE 5 MG TAB PO SCH (08:00)
[2019-02-28] MEDS: APIXABAN 2.5 MG TABLET PO SCH ×2 (08:33→19:56)
[2019-02-28] MEDS: SODIUM CHLORIDE 1 GM TAB PO SCH ×2 (08:33→16:58)
[2019-02-28] MEDS: FERROUS SULFATE 325 MG TAB PO SCH (08:33)
[2019-02-28] MEDS: CRANBERRY FRUIT EXTRACT 200 MG CAP PO SCH ×2 (08:33→19:56)
[2019-02-28] MEDS: FE SULF/FA/VIT B COMP & C TAB PO SCH (08:33)
[2019-02-28] MEDS: DOCUSATE NA/SENNA CONC 1 TAB PO SCH (19:56)
[2019-02-28] MEDS: NYSTATIN PWDR 100000 UNIT/GM TOP PRN (19:57)
--- NOTE | 2019-03-01 00:04 | PN ---
Date of Progress Note: 02/28/2019 Subjective: Patient was seen this morning for followup. No new complaints or problems reported by gianna alberto. Objective: General: Lying in bed, not in any distress. Vital Signs: Reviewed. HEENT: Unremarkable. Lungs: Clear to auscultation. Heart: Heart sounds normal. Abdomen: Soft, bowel sounds normal. No guarding, rigidity, tenderness, or distention. Extremities: No leg edema. Laboratory Data: Last lab results reviewed. Impression: 1.Stroke. 2.Meningioma. 3.Hypertension. Plan: Continue current medication. Patient reported that her tingling, numbness feeling both that s he had in her feet has resolved now. Denies any other new complaints. Will continue physical therap y under guidance of Dr. Rios. I will see her tomorrow for followup. JULIO/MODL Voice ID: [id number] Report ID: [id number]
[2019-03-01] MEDS: AMLODIPINE 5 MG TAB PO SCH ×2 (08:00→08:12)
[2019-03-01] MEDS: FERROUS SULFATE 325 MG TAB PO SCH (08:10)
[2019-03-01] MEDS: FE SULF/FA/VIT B COMP & C TAB PO SCH (08:10)
[2019-03-01] MEDS: CRANBERRY FRUIT EXTRACT 200 MG CAP PO SCH ×2 (08:12→20:09)
[2019-03-01] MEDS: APIXABAN 2.5 MG TABLET PO SCH ×2 (08:12→20:10)
[2019-03-01] MEDS: SODIUM CHLORIDE 1 GM TAB PO SCH ×2 (08:12→16:17)
[2019-03-01] MEDS ORDERED: POLYETHYL GLY 3350 17 GM/DOSE PO PRN (08:26)
[2019-03-01] MEDS ORDERED: MAGNES/ALUMIN/SIMET 30ML UCUP PO PRN (09:24)
[2019-03-01] MEDS: ONDANSETRON 4 MG (ODT) TAB PO PRN ×3 (12:45→20:11)
--- NOTE | 2019-03-01 14:08 | RAD REPORT ---
EXAM DESCRIPTION: CT - Head Brain Wo Cont - 03/01/2019 1:56 pm CLINICAL HISTORY: c/o nausea Headache, drowsiness COMPARISON: Head Brain Wo Cont dated 01/24/2019; HEAD BRAIN W O CONTRAST dated 04/10/2010 TECHNIQUE: All CT scans are performed using dose optimization technique as appropriate and may inclu de automated exposure control or mA/KV adjustment according to patient size. FINDINGS: Evidence of moderate edema and gliosis is present in the superior aspect of the right fron ivis lobe. Previously noted falcine mass in this region appears to have been surgically removed.Right craniotomy changes are present.No evidence of acute hemorrhage. No midline shift or hydrocephalus. The paranasal sinuses and mastoids are clear. IMPRESSION: Right frontal craniotomy changes are present with right frontal lobe gliosis and edema s uspected. No acute hemorrhage or midline shift is evident.
[2019-03-01] MEDS: dexAMETHasone 4 MG TAB PO SCH ×2 (14:29→20:10)
--- NOTE | 2019-03-01 16:58 | R.PN ---
ENCOUNTER DATE AND TIME: 02/28/2019 16:50 (HI RANGER OPERATOR) NAME GLENN ERNANDEZ DATE OF : 1955 DATE OF ADMISSION: 02/15/2019 23:31 (HI RANGER OPERATOR) right centrum semivola 5x3 mm DWI hypertintense lesion suggestive of acute ischemic infarctCHIEF COMP LAINT: Left sided weakness SUBJECTIVE: Pt denied any Shortness of Breath. Pt denied any depression. Mobilized wheelchair 50' with moderate assistance. Ambulated 70' with moderate assistance using a r olling walker. Ms. Ernandez had nausea and vomiting today. Head CT scan showed edema in the right frontal lobe in the area of gliosis following partial resection of her [employer] tumor. She was placed on decadron 4 mg twice daily. Ambulated 100, 45 and 25 feet with rolling walker and contact guard assistance. Self-propelled 260 fe et x 2 with modified independence. VITAL SIGNS Temperature: 97.2 F SBP/DBP: 119/59 Pulse: 70 Resp: 14 MEDICATION ALLERGIES: No Known Drug Allergies (NKDA) ENVIRONMENTAL ALLERGIES: - Substance Allergies None Known - Other Allergies None Known NURSING: - Shower allowing shower - Bladder care per protocol - Skin care per protocol PRECAUTIONS: - Weight Bearing Precaution WBAT left LE - Fall Precaution Bed alarm TABS alarm Wheel chair alarm ACTIVITIES OOB only with supervision THERAPIES: - Occupational Therapy Cognitive Retraining. Visual Perceptual Training. - Dietary and Nutrition Adequate Nutrition. Nutritional Education. Nutritional Supplements. - Speech Therapy Cognitive Training. Expressive Language Skills. Memory Strategies. Receptive Language Skills. Speech Intelligibility Training. PHYSICAL EXAM - Gen Alert and awake Lying in bed No apparent distress Oriented to: person, time, and place - Skin No breakdown Normacephalic - Eyes No abnormalities - ENMT No abnormalities - Neck No abnormalities - CVS RRR - Chest Clear - Abd Soft - GI Non distended Deferred - No abnormalities - Ext No significant edema - MSK 4/5 weakness in both lower extremities. - Neuro 2/5 strength left upper extremity. 4/5 weakness in both lower extremities. - Psych No abnormalities ASSESSMENT: Pt. is a 63 yo Right-handed female.On 01/25/2019 Pt. presented to [facility] with sudden onset of left-side weakness.On 01/25/2019 she was admitted to [facility] with diagnosis right centrum semivola 5x3 mm DWI hypertintense lesion suggesti ve of acute ischemic infarct.Her impairment category is Stroke 01 - Left Body (Right Brain) (01.1).P re-morbidly, Pt. was independent/mod-I in Locomotion, Endurance, Self-Care, Balance, Transfers Contro l, Safety Awareness, Communication, and Safety Awareness and Self-Care; and she had good Sphincter Co ntrol.Currently, she has deficits of Locomotion, Self-Care, Endurance, Balance, Transfers Control, Sa fety Awareness, Social Cognition, Ambulation, Communication, and Sphincter Control.Pt. is now referre d to [facility] for acute in-patient rehabilitation in order to maximize patie nt's functional independence in activities of daily living, strength, ROM, and mobility.- Rehab Goal Patient has realistic goal of being discharged at assistance level 6-Danielle to reside at Home with Fam adriana/Relatives. MDM/PLAN: - Physical Therapy Gait dysfunction - to improve, our physical therapists will perform initial evaluation of pt's statu s upon admission and devise an individualized program for Gait Training, and Wheel Chair mobility Inability to transfer - to improve, our physical therapists will perform initial evaluation of pt's status upon admission and devise an individualized program for Bed mobility Need for home safety evaluation - to improve, our physical therapists will perform initial evaluatio n of pt's status upon admission and devise an individualized program for Home Evaluation Need in caregiver upon discharge - to improve, our physical therapists will perform initial evaluati on of pt's status upon admission and devise an individualized program for Caregiver Training New precaution - to improve, our physical therapists will perform initial evaluation of pt's status upon admission and devise an individualized program for Patient precaution education Edema - to improve, our physical therapists will perform initial evaluation of pt's status upon admi ssion and devise an individualized program for Elevation Training, and Lymphedema Therapy Poor balance - to improve, our physical therapists will perform initial evaluation of pt's status up on admission and devise an individualized program for Balance Training Poor endurance - to improve, our physical therapists will perform initial evaluation of pt's status upon admission and devise an individualized program for Endurance Training Weakness - to improve, our physical therapists will perform initial evaluation of pt's status upon a dmission and devise an individualized program for Aquatic Therapy, Neuromuscular Reeducation, and Str engthening Achieving independence - to improve, our physical therapists will perform initial evaluation of pt's status upon admission and devise an individualized program for Community Reintegration Activities - Occupational Therapy ADL deficits - to improve, our occupation therapists will perform initial evaluation of pt's status upon admission and devise an individualized program for Bathing, Bed mobility, Community Reintegratio n, Cooking, Dressing, Eating, Fine Motor Skills, Grooming, Homemaking, Kitchen Mobility, Laundry, Pat ient Education, Safety Awareness, Splinting - Positioning, Transfers(Toilet, Tub, Shower), and Wheel Chair Management Cognitive deficits - to improve, our occupation therapists will perform initial evaluation of pt's s tatus upon admission and devise an individualized program for Cognition - orientation Need for campground caretaker - to improve, our occupation therapists will perform initial evaluation of pt's status upon admission and devise an individualized program for Caregiver Training Weakness - to improve, our occupation therapists will perform initial evaluation of pt's status upon admission and devise an individualized program for Aquatic Therapy, Balance, Endurance, UE ROM, and UE strengthening - Other See attached MAR (Medication Administration Record) - Diet Type Continue Regular - Diet - Liquid Texture Continue Regular - Tube Feed Continue N/A - Bladder care per protocol - Weight Bearing Precaution WBAT left LE - Fall Precaution Bed alarm TABS alarm Wheel chair alarm - Skin care per protocol - Diet - Solid Texture Continue Regular - Shower allowing shower for Dementia, TBI, Stroke, or others FUNCTIONAL STATUS: UPDATED AT WEEKLY TEAM CONFERENCE - Bladder Same accident frequency: 7-Ind - No accidents in the past 7 days - Bowel Same accident frequency: 7-Ind - No accidents in the past 7 days - Walking Same score based on distance walked: 1(<=50ft) - Wheelchair Same score based on distance traveled: 1(<=50ft) FUNCTIONAL STATUS: - Self-Care A. Eating Ind B. Grooming sup C. Bathing sup D. Dressing - Upper Paresh E. Dressing - Lower maxA F. Toileting modA - Sphincter Control G. Bladder control sup H. Bowel control Paresh - Transfers Control I. Bed/Chair/Wheelchair Danielle J. Toilet modA K. Tub/Shower modA - Locomotion L. Walk/Wheelchair (B) sup M. Stairs modA - Communication N. Comprehension (B) sup O. Expression (B) Paresh - Social Cognition P. Social Interaction sup Q. Problem Solving Danielle R. Memory Danielle - Endurance Good - Balance Good - Safety Awareness Good QI SCORES: - Self-Care A. Eating 04-Supervision or touching assistance B. Oral hygiene 04-Supervision or touching assistance C. Toileting hygiene 01-Dependent E. Shower/bathe self 88-Not attempted due to medical condition or safety concerns F. Upper body dressing 02-Substantial/maximal assistance G. Lower body dressing 01-Dependent H. Putting on/taking off footwear 01-Dependent - Mobility A. Roll left and right 01-Dependent B. Sit to lying 02-Substantial/maximal assistance C. Lying to sitting on side of bed 01-Dependent D. Sit to stand 88-Not attempted due to medical condition or safety concerns E. Chair/[id number] transfer 01-Dependent F. Toilet transfer 01-Dependent G. Car transfer 88-Not attempted due to medical condition or safety concerns I. Walk 10 feet 88-Not attempted due to medical condition or safety concerns J. Walk 50 feet with two turns 88-Not attempted due to medical condition or safety concerns K. Walk 150 feet 88-Not attempted due to medical condition or safety concerns L. Walking 10 feet on uneven surfaces 88-Not attempted due to medical condition or safety concerns M. 1 step (curb) 88-Not attempted due to medical condition or safety concerns N. 4 steps 88-Not attempted due to medical condition or safety concerns O. 12 steps 88-Not attempted due to medical condition or safety concerns P. Picking up object 88-Not attempted due to medical condition or safety concerns R. Wheel 50 feet with two turns 88-Not attempted due to medical condition or safety concerns S. Wheel 150 feet 88-Not attempted due to medical condition or safety concerns - Bladder and Bowel Bladder continence 4-Always incontinent Bowel continence 3-Always incontinent - Endurance Poor - Balance Poor - Safety Awareness Poor CURRENT FUNC. DEFICITS: Self-Care, Mobility, Endurance, Balance, and Safety Awareness SIGNATURE PANEL: (HI RANGER OPERATOR)
[2019-03-01] MEDS: DOCUSATE NA/SENNA CONC 1 TAB PO SCH (20:10)
[2019-03-01] MEDS: MELATONIN 3 MG TABLET PO PRN (20:12)
--- NOTE | 2019-03-01 22:04 | R.PN ---
ENCOUNTER DATE AND TIME: 03/01/2019 22:00 (KISS MACHINE OPERATOR) NAME GLENN ERNANDEZ DATE OF : 1955 DATE OF ADMISSION: 02/15/2019 23:31 (KISS MACHINE OPERATOR) right centrum semivola 5x3 mm DWI hypertintense lesion suggestive of acute ischemic infarctCHIEF COMP LAINT: Left sided weakness SUBJECTIVE: Pt denied any Shortness of Breath. Pt denied any depression. Mobilized wheelchair 50' with moderate assistance. Ambulated 70' with moderate assistance using a r olling walker. Ms. Ernandez had nausea and vomiting today. Head CT scan showed edema in the right frontal lobe in the area of gliosis following partial resection of her [employer] tumor. She was placed on decadron 4 mg twice daily. She is making fair overall progress with physical therapy. VITAL SIGNS Temperature: 97.2 F SBP/DBP: 119/59 Pulse: 70 Resp: 14 MEDICATION ALLERGIES: No Known Drug Allergies (NKDA) ENVIRONMENTAL ALLERGIES: - Substance Allergies None Known - Other Allergies None Known NURSING: - Shower allowing shower - Bladder care per protocol - Skin care per protocol PRECAUTIONS: - Weight Bearing Precaution WBAT left LE - Fall Precaution Bed alarm TABS alarm Wheel chair alarm ACTIVITIES OOB only with supervision THERAPIES: - Occupational Therapy Cognitive Retraining. Visual Perceptual Training. - Dietary and Nutrition Adequate Nutrition. Nutritional Education. Nutritional Supplements. - Speech Therapy Cognitive Training. Expressive Language Skills. Memory Strategies. Receptive Language Skills. Speech Intelligibility Training. PHYSICAL EXAM - Gen Alert and awake Lying in bed No apparent distress Oriented to: person, time, and place - Skin No breakdown Normacephalic - Eyes No abnormalities - ENMT No abnormalities - Neck No abnormalities - CVS RRR - Chest Clear - Abd Soft - GI Non distended Deferred - No abnormalities - Ext No significant edema - MSK 4/5 weakness in both lower extremities. - Neuro 2/5 strength left upper extremity. 4/5 weakness in both lower extremities. - Psych No abnormalities ASSESSMENT: Pt. is a 63 yo Right-handed female.On 01/25/2019 Pt. presented to [facility] with sudden onset of left-side weakness.On 01/25/2019 she was admitted to [facility] with diagnosis right centrum semivola 5x3 mm DWI hypertintense lesion suggesti ve of acute ischemic infarct.Her impairment category is Stroke 01 - Left Body (Right Brain) (01.1).P re-morbidly, Pt. was independent/mod-I in Locomotion, Endurance, Self-Care, Balance, Transfers Contro l, Safety Awareness, Communication, and Safety Awareness and Self-Care; and she had good Sphincter Co ntrol.Currently, she has deficits of Locomotion, Self-Care, Endurance, Balance, Transfers Control, Sa fety Awareness, Social Cognition, Ambulation, Communication, and Sphincter Control.Pt. is now referre d to [facility] for acute in-patient rehabilitation in order to maximize patie nt's functional independence in activities of daily living, strength, ROM, and mobility.- Rehab Goal Patient has realistic goal of being discharged at assistance level 6-Danielle to reside at Home with Fam adriana/Relatives. MDM/PLAN: - Physical Therapy Gait dysfunction - to improve, our physical therapists will perform initial evaluation of pt's statu s upon admission and devise an individualized program for Gait Training, and Wheel Chair mobility Inability to transfer - to improve, our physical therapists will perform initial evaluation of pt's status upon admission and devise an individualized program for Bed mobility Need for home safety evaluation - to improve, our physical therapists will perform initial evaluatio n of pt's status upon admission and devise an individualized program for Home Evaluation Need in caregiver upon discharge - to improve, our physical therapists will perform initial evaluati on of pt's status upon admission and devise an individualized program for Caregiver Training New precaution - to improve, our physical therapists will perform initial evaluation of pt's status upon admission and devise an individualized program for Patient precaution education Edema - to improve, our physical therapists will perform initial evaluation of pt's status upon admi ssion and devise an individualized program for Elevation Training, and Lymphedema Therapy Poor balance - to improve, our physical therapists will perform initial evaluation of pt's status up on admission and devise an individualized program for Balance Training Poor endurance - to improve, our physical therapists will perform initial evaluation of pt's status upon admission and devise an individualized program for Endurance Training Weakness - to improve, our physical therapists will perform initial evaluation of pt's status upon a dmission and devise an individualized program for Aquatic Therapy, Neuromuscular Reeducation, and Str engthening Achieving independence - to improve, our physical therapists will perform initial evaluation of pt's status upon admission and devise an individualized program for Community Reintegration Activities - Occupational Therapy ADL deficits - to improve, our occupation therapists will perform initial evaluation of pt's status upon admission and devise an individualized program for Bathing, Bed mobility, Community Reintegratio n, Cooking, Dressing, Eating, Fine Motor Skills, Grooming, Homemaking, Kitchen Mobility, Laundry, Pat ient Education, Safety Awareness, Splinting - Positioning, Transfers(Toilet, Tub, Shower), and Wheel Chair Management Cognitive deficits - to improve, our occupation therapists will perform initial evaluation of pt's s tatus upon admission and devise an individualized program for Cognition - orientation Need for emergency care attendant - to improve, our occupation therapists will perform initial evaluation of pt's status upon admission and devise an individualized program for Caregiver Training Weakness - to improve, our occupation therapists will perform initial evaluation of pt's status upon admission and devise an individualized program for Aquatic Therapy, Balance, Endurance, UE ROM, and UE strengthening - Other See attached MAR (Medication Administration Record) - Diet Type Continue Regular - Diet - Liquid Texture Continue Regular - Tube Feed Continue N/A - Bladder care per protocol - Weight Bearing Precaution WBAT left LE - Fall Precaution Bed alarm TABS alarm Wheel chair alarm - Skin care per protocol - Diet - Solid Texture Continue Regular - Shower allowing shower for Dementia, TBI, Stroke, or others FUNCTIONAL STATUS: UPDATED AT WEEKLY TEAM CONFERENCE - Bladder Same accident frequency: 7-Ind - No accidents in the past 7 days - Bowel Same accident frequency: 7-Ind - No accidents in the past 7 days - Walking Same score based on distance walked: 1(<=50ft) - Wheelchair Same score based on distance traveled: 1(<=50ft) FUNCTIONAL STATUS: - Self-Care A. Eating Ind B. Grooming sup C. Bathing sup D. Dressing - Upper Paresh E. Dressing - Lower maxA F. Toileting modA - Sphincter Control G. Bladder control sup H. Bowel control Paresh - Transfers Control I. Bed/Chair/Wheelchair Danielle J. Toilet modA K. Tub/Shower modA - Locomotion L. Walk/Wheelchair (B) sup M. Stairs modA - Communication N. Comprehension (B) sup O. Expression (B) Paresh - Social Cognition P. Social Interaction sup Q. Problem Solving Danielle R. Memory Danielle - Endurance Good - Balance Good - Safety Awareness Good QI SCORES: - Self-Care A. Eating 04-Supervision or touching assistance B. Oral hygiene 04-Supervision or touching assistance C. Toileting hygiene 01-Dependent E. Shower/bathe self 88-Not attempted due to medical condition or safety concerns F. Upper body dressing 02-Substantial/maximal assistance G. Lower body dressing 01-Dependent H. Putting on/taking off footwear 01-Dependent - Mobility A. Roll left and right 01-Dependent B. Sit to lying 02-Substantial/maximal assistance C. Lying to sitting on side of bed 01-Dependent D. Sit to stand 88-Not attempted due to medical condition or safety concerns E. Chair/[id number] transfer 01-Dependent F. Toilet transfer 01-Dependent G. Car transfer 88-Not attempted due to medical condition or safety concerns I. Walk 10 feet 88-Not attempted due to medical condition or safety concerns J. Walk 50 feet with two turns 88-Not attempted due to medical condition or safety concerns K. Walk 150 feet 88-Not attempted due to medical condition or safety concerns L. Walking 10 feet on uneven surfaces 88-Not attempted due to medical condition or safety concerns M. 1 step (curb) 88-Not attempted due to medical condition or safety concerns N. 4 steps 88-Not attempted due to medical condition or safety concerns O. 12 steps 88-Not attempted due to medical condition or safety concerns P. Picking up object 88-Not attempted due to medical condition or safety concerns R. Wheel 50 feet with two turns 88-Not attempted due to medical condition or safety concerns S. Wheel 150 feet 88-Not attempted due to medical condition or safety concerns - Bladder and Bowel Bladder continence 4-Always incontinent Bowel continence 3-Always incontinent - Endurance Poor - Balance Poor - Safety Awareness Poor CURRENT FUNC. DEFICITS: Self-Care, Mobility, Endurance, Balance, and Safety Awareness SIGNATURE PANEL: (KISS MACHINE OPERATOR)
--- NOTE | 2019-03-01 23:50 | PN ---
Date of Progress Note: 03/01/2019 Subjective: The patient was seen this morning for followup. When I saw her this morning she was luis enriquei ng in bed, not in any distress. Denied any complaints at all. Objective: Vital Signs: Reviewed. HEENT: Unremarkable. Lungs: Clear to auscultation. Heart: Heart sounds normal. Abdomen: Soft, bowel sounds normal. No guarding, rigidity, tenderness, or distention. Extremities: No leg edema. Impression: 1.Stroke. 2.Meningioma. 3.Hypertension. Plan: After I saw the patient during the course of day today, nurse from rehab floor contacted me, i nformed me that patient was having some nausea and upset stomach type of feeling, wanted something fo r heartburn, indigestion type of problem, emotional and crying. So I ordered some Maalox for her and when nurse called me second time with nausea complaints, I ordered Zofran and at that time also orde red a stat CT head without contrast. The patient did not have any headache. No other change in her condition was reported, except complaints of nausea, stomach upset and crying. Stat CAT scan of the head was done, which revealed no acute changes except postoperative changes with some evidence of cer ebral edema, but no evidence of midline shift. Dr. Rios was contacted with this report and he di d talk to me and he is going to start the patient on Decadron and this is expected. I will start my discussion with him after her recent surgery. I will see her tomorrow for followup. JULIO/MODL Voice ID: [id number] Report ID: [id number]
[2019-03-02] MEDS: ONDANSETRON 4 MG (ODT) TAB PO PRN ×4 (04:49→20:19)
[2019-03-02 06:29] LABS: Absolute Lymphocytes (CBC) 1.3 K/uL (0.7-4.9); Basophils % 0.1 % (0-1.3); Hematocrit 32.9 % (36.0-45.0); Lymphocytes % 14.5 % (15.3-44.8); RBC Red Blood Cell Count 3.52 M/uL (3.86-4.86)
[2019-03-02] MEDS: CRANBERRY FRUIT EXTRACT 200 MG CAP PO SCH ×2 (07:53→20:19)
[2019-03-02] MEDS: APIXABAN 2.5 MG TABLET PO SCH ×2 (07:53→20:19)
[2019-03-02] MEDS: dexAMETHasone 4 MG TAB PO SCH ×2 (07:53→20:19)
[2019-03-02] MEDS: AMLODIPINE 5 MG TAB PO SCH (07:54)
[2019-03-02] MEDS: POLYETHYL GLY 3350 17 GM/DOSE PO SCH (07:54)
[2019-03-02] MEDS: FERROUS SULFATE 325 MG TAB PO SCH (07:54)
[2019-03-02] MEDS: SODIUM CHLORIDE 1 GM TAB PO SCH ×2 (07:54→16:08)
[2019-03-02] MEDS: FE SULF/FA/VIT B COMP & C TAB PO SCH (07:54)
[2019-03-02 07:55] LABS: ALT/SGPT 23 U/L (12-78); Alkaline Phosphatase 92 U/L (45-117); BUN Blood Urea Nitrogen 18 mg/dL (7-18); Bicarbonate 25 mmol/L (21-32); Bilirubin Direct 0.1 mg/dL (0-0.2); Bilirubin Total 0.3 mg/dL (0.2-1.0); Glucose Level 195 mg/dL (74-106); Magnesium 2.4 mg/dL (1.8-2.4); Potassium 3.9 mmol/L (3.5-5.1); Protein, Total 8.1 g/dL (6.4-8.2); Sodium Level 141 mmol/L (136-145)
[2019-03-02 08:58] LABS: AST/SGOT 13 U/L (15-37)
[2019-03-02 09:01] LABS: Blood Morphology Comment NOT SEEN (NOT SEEN); Platelet Estimate ADEQ
[2019-03-02] MEDS: DOCUSATE NA/SENNA CONC 1 TAB PO SCH (20:19)
[2019-03-02] MEDS: MELATONIN 3 MG TABLET PO PRN (20:20)
--- NOTE | 2019-03-02 21:01 | R.PN ---
ENCOUNTER DATE AND TIME: 03/02/2019 20:58 (IMMIGRATION CONSULTANT) NAME GLENN ERNANDEZ DATE OF : 1955 DATE OF ADMISSION: 02/15/2019 23:31 (IMMIGRATION CONSULTANT) right centrum semivola 5x3 mm DWI hypertintense lesion suggestive of acute ischemic infarctCHIEF COMP LAINT: Left sided weakness SUBJECTIVE: Pt denied any Shortness of Breath. Pt denied any depression. Mobilized wheelchair 50' with moderate assistance. Ambulated 70' with moderate assistance using a r olling walker. Ms. Ernandez had nausea and vomiting today. Head CT scan showed edema in the right frontal lobe in the area of gliosis following partial resection of her [employer] tumor. She was placed on decadron 4 mg twice daily. She is making fair overall progress with physical therapy. VITAL SIGNS Temperature: 97.2 F SBP/DBP: 121/63 Pulse: 70 Resp: 14 MEDICATION ALLERGIES: No Known Drug Allergies (NKDA) ENVIRONMENTAL ALLERGIES: - Substance Allergies None Known - Other Allergies None Known NURSING: - Shower allowing shower - Bladder care per protocol - Skin care per protocol PRECAUTIONS: - Weight Bearing Precaution WBAT left LE - Fall Precaution Bed alarm TABS alarm Wheel chair alarm ACTIVITIES OOB only with supervision THERAPIES: - Occupational Therapy Cognitive Retraining. Visual Perceptual Training. - Dietary and Nutrition Adequate Nutrition. Nutritional Education. Nutritional Supplements. - Speech Therapy Cognitive Training. Expressive Language Skills. Memory Strategies. Receptive Language Skills. Speech Intelligibility Training. PHYSICAL EXAM - Gen Alert and awake Lying in bed No apparent distress Oriented to: person, time, and place - Skin No breakdown Normacephalic - Eyes No abnormalities - ENMT No abnormalities - Neck No abnormalities - CVS RRR - Chest Clear - Abd Soft - GI Non distended Deferred - No abnormalities - Ext No significant edema - MSK 4/5 weakness in both lower extremities. - Neuro 2/5 strength left upper extremity. 4/5 weakness in both lower extremities. - Psych No abnormalities ASSESSMENT: Pt. is a 63 yo Right-handed female.On 01/25/2019 Pt. presented to [facility] with sudden onset of left-side weakness.On 01/25/2019 she was admitted to [facility] with diagnosis right centrum semivola 5x3 mm DWI hypertintense lesion suggesti ve of acute ischemic infarct.Her impairment category is Stroke 01 - Left Body (Right Brain) (01.1).P re-morbidly, Pt. was independent/mod-I in Locomotion, Endurance, Self-Care, Balance, Transfers Contro l, Safety Awareness, Communication, and Safety Awareness and Self-Care; and she had good Sphincter Co ntrol.Currently, she has deficits of Locomotion, Self-Care, Endurance, Balance, Transfers Control, Sa fety Awareness, Social Cognition, Ambulation, Communication, and Sphincter Control.Pt. is now referre d to [facility] for acute in-patient rehabilitation in order to maximize patie nt's functional independence in activities of daily living, strength, ROM, and mobility.- Rehab Goal Patient has realistic goal of being discharged at assistance level 6-Danielle to reside at Home with Fam adriana/Relatives. MDM/PLAN: - Physical Therapy Gait dysfunction - to improve, our physical therapists will perform initial evaluation of pt's statu s upon admission and devise an individualized program for Gait Training, and Wheel Chair mobility Inability to transfer - to improve, our physical therapists will perform initial evaluation of pt's status upon admission and devise an individualized program for Bed mobility Need for home safety evaluation - to improve, our physical therapists will perform initial evaluatio n of pt's status upon admission and devise an individualized program for Home Evaluation Need in caregiver upon discharge - to improve, our physical therapists will perform initial evaluati on of pt's status upon admission and devise an individualized program for Caregiver Training New precaution - to improve, our physical therapists will perform initial evaluation of pt's status upon admission and devise an individualized program for Patient precaution education Edema - to improve, our physical therapists will perform initial evaluation of pt's status upon admi ssion and devise an individualized program for Elevation Training, and Lymphedema Therapy Poor balance - to improve, our physical therapists will perform initial evaluation of pt's status up on admission and devise an individualized program for Balance Training Poor endurance - to improve, our physical therapists will perform initial evaluation of pt's status upon admission and devise an individualized program for Endurance Training Weakness - to improve, our physical therapists will perform initial evaluation of pt's status upon a dmission and devise an individualized program for Aquatic Therapy, Neuromuscular Reeducation, and Str engthening Achieving independence - to improve, our physical therapists will perform initial evaluation of pt's status upon admission and devise an individualized program for Community Reintegration Activities - Occupational Therapy ADL deficits - to improve, our occupation therapists will perform initial evaluation of pt's status upon admission and devise an individualized program for Bathing, Bed mobility, Community Reintegratio n, Cooking, Dressing, Eating, Fine Motor Skills, Grooming, Homemaking, Kitchen Mobility, Laundry, Pat ient Education, Safety Awareness, Splinting - Positioning, Transfers(Toilet, Tub, Shower), and Wheel Chair Management Cognitive deficits - to improve, our occupation therapists will perform initial evaluation of pt's s tatus upon admission and devise an individualized program for Cognition - orientation Need for managed care analyst - to improve, our occupation therapists will perform initial evaluation of pt's status upon admission and devise an individualized program for Caregiver Training Weakness - to improve, our occupation therapists will perform initial evaluation of pt's status upon admission and devise an individualized program for Aquatic Therapy, Balance, Endurance, UE ROM, and UE strengthening - Other See attached MAR (Medication Administration Record) - Diet Type Continue Regular - Diet - Liquid Texture Continue Regular - Tube Feed Continue N/A - Bladder care per protocol - Weight Bearing Precaution WBAT left LE - Fall Precaution Bed alarm TABS alarm Wheel chair alarm - Skin care per protocol - Diet - Solid Texture Continue Regular - Shower allowing shower for Dementia, TBI, Stroke, or others FUNCTIONAL STATUS: UPDATED AT WEEKLY TEAM CONFERENCE - Bladder Same accident frequency: 7-Ind - No accidents in the past 7 days - Bowel Same accident frequency: 7-Ind - No accidents in the past 7 days - Walking Same score based on distance walked: 1(<=50ft) - Wheelchair Same score based on distance traveled: 1(<=50ft) FUNCTIONAL STATUS: - Self-Care A. Eating Ind B. Grooming sup C. Bathing sup D. Dressing - Upper Paresh E. Dressing - Lower maxA F. Toileting modA - Sphincter Control G. Bladder control sup H. Bowel control Paresh - Transfers Control I. Bed/Chair/Wheelchair Danielle J. Toilet modA K. Tub/Shower modA - Locomotion L. Walk/Wheelchair (B) sup M. Stairs modA - Communication N. Comprehension (B) sup O. Expression (B) Paresh - Social Cognition P. Social Interaction sup Q. Problem Solving Danielle R. Memory Danielle - Endurance Good - Balance Good - Safety Awareness Good QI SCORES: - Self-Care A. Eating 04-Supervision or touching assistance B. Oral hygiene 04-Supervision or touching assistance C. Toileting hygiene 01-Dependent E. Shower/bathe self 88-Not attempted due to medical condition or safety concerns F. Upper body dressing 02-Substantial/maximal assistance G. Lower body dressing 01-Dependent H. Putting on/taking off footwear 01-Dependent - Mobility A. Roll left and right 01-Dependent B. Sit to lying 02-Substantial/maximal assistance C. Lying to sitting on side of bed 01-Dependent D. Sit to stand 88-Not attempted due to medical condition or safety concerns E. Chair/emn-pu-luiww transfer 01-Dependent F. Toilet transfer 01-Dependent G. Car transfer 88-Not attempted due to medical condition or safety concerns I. Walk 10 feet 88-Not attempted due to medical condition or safety concerns J. Walk 50 feet with two turns 88-Not attempted due to medical condition or safety concerns K. Walk 150 feet 88-Not attempted due to medical condition or safety concerns L. Walking 10 feet on uneven surfaces 88-Not attempted due to medical condition or safety concerns M. 1 step (curb) 88-Not attempted due to medical condition or safety concerns N. 4 steps 88-Not attempted due to medical condition or safety concerns O. 12 steps 88-Not attempted due to medical condition or safety concerns P. Picking up object 88-Not attempted due to medical condition or safety concerns R. Wheel 50 feet with two turns 88-Not attempted due to medical condition or safety concerns S. Wheel 150 feet 88-Not attempted due to medical condition or safety concerns - Bladder and Bowel Bladder continence 4-Always incontinent Bowel continence 3-Always incontinent - Endurance Poor - Balance Poor - Safety Awareness Poor CURRENT FUNC. DEFICITS: Self-Care, Mobility, Endurance, Balance, and Safety Awareness SIGNATURE PANEL: (IMMIGRATION CONSULTANT)
--- NOTE | 2019-03-03 01:24 | PN ---
Date of Progress Note: 03/02/2019 Subjective: Patient was seen this morning for followup. She was sitting in wheelchair in dining leonel m with her family member, feeling much better today than yesterday. No nausea. No stomach upset. N o crying spells. No headaches. Objective: Vital Signs: Reviewed. HEENT: Unremarkable. Lungs: Clear to auscultation. Heart: Heart sounds normal. Abdomen: Soft, bowel sounds normal. No guarding, rigidity, tenderness, or distention. Extremities: No leg edema. Neuro: Unchanged. Laboratory Data: White count 9.1, hemoglobin 11.3, platelets of 323. Sodium 143, potassium 3.7, chl oride 111, bicarb 28, BUN 23, creatinine 0.33, glucose 108. Impression: 1.Stroke. 2.Meningioma. 3.Hypertension. Plan: We will continue current medication. Continue Decadron as started yesterday. Continue curren t antihypertensive medication and the patient will receive physical therapy per guidance of Dr. Nasreen schmidt. I will see her tomorrow for followup. JULIO/MODL Voice ID: [id number] Report ID: [id number]
[2019-03-03] MEDS: POLYETHYL GLY 3350 17 GM/DOSE PO SCH ×2 (08:00→08:08)
[2019-03-03] MEDS: APIXABAN 2.5 MG TABLET PO SCH ×2 (08:08→20:30)
[2019-03-03] MEDS: CRANBERRY FRUIT EXTRACT 200 MG CAP PO SCH ×2 (08:08→20:29)
[2019-03-03] MEDS: dexAMETHasone 4 MG TAB PO SCH ×2 (08:08→20:30)
[2019-03-03] MEDS: SODIUM CHLORIDE 1 GM TAB PO SCH ×2 (08:08→17:31)
[2019-03-03] MEDS: FERROUS SULFATE 325 MG TAB PO SCH (08:08)
[2019-03-03] MEDS: FE SULF/FA/VIT B COMP & C TAB PO SCH (08:08)
[2019-03-03] MEDS: AMLODIPINE 5 MG TAB PO SCH (08:09)
--- NOTE | 2019-03-03 09:52 | P.RH.PN ---
Estimated Length of Stay: 25 Expected Discharge Date: 03/11/19 Discharge Disposition Plan: Home Family Support: Yes Longterm Goal: Mobility, Transfers, Self Care Vital Signs: Last Vital Signs Temp 97.4 F 03/02/19 20:00 Pulse 71 03/03/19 08:09 Resp 17 03/02/19 20:00 BP 134/52 L 03/03/19 08:09 Pulse Ox 99 03/02/19 20:00 Laboratory: Laboratory Last Values WBC 9.1 K/uL (4.3-10.9) D 03/02/19 05:46 RBC 3.52 M/uL (3.86-4.86) L 03/02/19 05:46 Hgb 11.3 g/dL (12.0-15.0) L 03/02/19 05:46 Hct 32.9 % (36.0-45.0) L 03/02/19 05:46 MCV 93.4 fL (80-100) D 03/02/19 05:46 MCH 32.1 pg (27.0-35.0) 03/02/19 05:46 MCHC 34.4 g/dL (32.0-36.0) 03/02/19 05:46 RDW 14.6 % (12.1-15.2) 03/02/19 05:46 Plt Count 323 K/uL (152-406) D 03/02/19 05:46 MPV 9.0 fL (7.6-11.3) 03/02/19 05:46 Plt Distribution Width Cancelled 03/02/19 06:00 Absolute Nucleated RBC Cancelled 03/02/19 06:00 Total Counted Cancelled 03/02/19 05:46 Neutrophils % 82.2 % (41.7-73.7) H 03/02/19 05:46 Lymphocytes % 14.5 % (15.3-44.8) L 03/02/19 05:46 Monocytes % 3.2 % (3.3-12.3) L 03/02/19 05:46 Eosinophils % 0.0 % (0-4.4) 03/02/19 05:46 Basophils % 0.1 % (0-1.3) 03/02/19 05:46 Megakaryocytes % Cancelled 03/02/19 05:46 Nucleated RBC % Cancelled 03/02/19 06:00 Absolute Neutrophils 7.5 K/uL (1.8-8.0) 03/02/19 05:46 Segmented Neutrophils 84 % (40-80) H 03/02/19 05:46 Band Neutrophils Cancelled 03/02/19 05:46 Absolute Lymphocytes 1.3 K/uL (0.7-4.9) 03/02/19 05:46 Lymphocytes 11 % (15-42) L 03/02/19 05:46 Monocytes 5 % (0-10) 03/02/19 05:46 Absolute Monocytes 0.3 K/uL (0.1-1.3) 03/02/19 05:46 Eosinophils Cancelled 03/02/19 05:46 Absolute Eosinophils 0.0 K/uL (0-0.5) 03/02/19 05:46 Basophils Cancelled 03/02/19 05:46 Absolute Basophils 0.0 K/uL (0-0.5) 03/02/19 05:46 Metamyelocytes Cancelled 03/02/19 05:46 Myelocytes Cancelled 03/02/19 05:46 Promyelocytes Cancelled 03/02/19 05:46 Nucleated RBCs Cancelled 03/02/19 05:46 Diff Path Review Cancelled 03/02/19 06:00 Hypersegmented Neuts Cancelled 03/02/19 05:46 Hypogranular Neuts Cancelled 03/02/19 05:46 Atypical Lymphocytes Cancelled 03/02/19 05:46 Reactive Lymphocytes Cancelled 03/02/19 05:46 Lymphoblasts Cancelled 03/02/19 05:46 Blast Cells Cancelled 03/02/19 05:46 Immature Blood Cells Cancelled 03/02/19 05:46 Plasma Cells Cancelled 03/02/19 05:46 Smudge Cells Cancelled 03/02/19 05:46 Toxic Granulation Cancelled 03/02/19 05:46 Dohle Bodies Cancelled 03/02/19 05:46 Pelger-Huet Cells Cancelled 03/02/19 05:46 Steven Rods Cancelled 03/02/19 05:46 Platelet Estimate Cancelled 03/02/19 05:46 Clumped Platelets Cancelled 03/02/19 05:46 Giant Platelets Cancelled 03/02/19 05:46 Polychromasia Cancelled 03/02/19 05:46 Hypochromasia Cancelled 03/02/19 05:46 Poikilocytosis Cancelled 03/02/19 05:46 Basophilic Stippling Cancelled 03/02/19 05:46 Anisocytosis Cancelled 03/02/19 05:46 Microcytosis Cancelled 03/02/19 05:46 Macrocytosis Cancelled 03/02/19 05:46 Spherocytes Cancelled 03/02/19 05:46 Sickle Cells Cancelled 03/02/19 05:46 Target Cells Cancelled 03/02/19 05:46 Tear Drop Cells Cancelled 03/02/19 05:46 Ovalocytes Cancelled 03/02/19 05:46 Stomatocytes Cancelled 03/02/19 05:46 [place] Bodies Cancelled 03/02/19 05:46 Yolande Cells Cancelled 03/02/19 05:46 Elliptocytes Cancelled 03/02/19 05:46 Rouleaux Cancelled 03/02/19 05:46 Cold Agglutinates Cancelled 03/02/19 05:46 Unidentified Cells Cancelled 03/02/19 05:46 Schistocytes Cancelled 03/02/19 05:46 Morphology Comment Not seen (NOT SEEN) 03/02/19 05:46 Sodium 141 mmol/L (136-145) 03/02/19 05:46 Potassium 3.9 mmol/L (3.5-5.1) 03/02/19 05:46 Chloride 110 mmol/L (98-107) H 03/02/19 05:46 Carbon Dioxide 25 mmol/L (21-32) 03/02/19 05:46 BUN 18 mg/dL (7-18) 03/02/19 05:46 Creatinine 0.49 mg/dL (0.55-1.3) L 03/02/19 05:46 Estimated GFR > 90 mL/min (=/>90) 03/02/19 05:46 Glucose 195 mg/dL (74-106) H 03/02/19 05:46 Calcium 8.7 mg/dL (8.5-10.1) 03/02/19 05:46 Magnesium 2.4 mg/dL (1.8-2.4) 03/02/19 05:46 Total Bilirubin Cancelled 03/02/19 06:00 Direct Bilirubin Cancelled 03/02/19 06:00 AST Cancelled 03/02/19 06:00 ALT Cancelled 03/02/19 06:00 Alkaline Phosphatase Cancelled 03/02/19 06:00 Serum Total Protein Cancelled 03/02/19 06:00 Albumin 3.0 g/dL (3.4-5.0) L 03/02/19 05:46 Globulin Cancelled 03/02/19 06:00 Albumin/Globulin Ratio Cancelled 03/02/19 06:00 Prealbumin 28.0 mg/dL (20-40) 03/02/19 05:46 Urine Color Yellow 02/17/19 21:23 Urine Appearance Cloudy 02/17/19 21:23 Urine pH 6.5 (5.0-7.0) 02/17/19 21:23 Ur Specific [place] 1.020 (1.005-1.030) 02/17/19 21:23 Urine Ketones Negative (NEG) 02/17/19 21:23 Urine Blood Negative (NEG) 02/17/19 21:23 Urine Nitrite Negative (NEG) 02/17/19 21:23 Urine Bilirubin Negative (NEG) 02/17/19 21:23 Urine Urobilinogen 1.0 mg/dL (0.2-1.0) 02/17/19 21:23 Ur Leukocyte Esterase 2+ (NEG) H 02/17/19 21:23 Urine RBC <5 /HPF (NONE SEEN) 02/17/19 21:23 Urine WBC 10-20 /HPF (<5) H 02/17/19 21:23 Ur Squamous Epith Cells 5-10 /HPF (NONE SEEN) H 02/17/19 21:23 Urine Bacteria 20-50 /HPF (<20) H 02/17/19 21:23 Urine Culture Reflexed Reflexed 02/17/19 21:23 Urine Glucose Negative (NEG) 02/17/19 21:23 Urine Total Protein Negative (NEG) 02/17/19 21:23 Weight: 127 lb Wound Present: No Closed Surgical Incision Present: Yes Negative Pressure Wound Therapy Present: No Physician Update: She is doing better with balance, but she still needs max assistance for transfers. She walks with the rolling walker with maximum assistance due to loss of balance. Medical Issues: Patient has UTI and completed Ciprofloxacin 500mg BID PO. Patient is incontinent daily with bladder and always continent with bowel. Functional Improvement: pt has demonstrated progress with her functional abilities and postural strength. pt has demonstrated ability to being ambulation using RW. pt does rapidly fatigue and exhibits trunk weakness; however, these are improving. pt remains motivated and participates to the best of her ability. Skilled PT services remain necessary to enhance functional performance and safety. Speech Therapy Update: Patient presents with mild cognitive-linguistic impairments characterized by mild forgetfulness, confusion/disorientation, problem solving evident more in complex tasks, impulsivity and left side neglect. Patient is motivated and cooperative and has strong family support. Patient would benefit from continued speech therapy to address the above- referenced deficits. Summary: Patient's care plan and manager terminal goals have been reviewed and revised as necessary. Please see the Rehabilitation Signature page for all necessary signatures.
[2019-03-03] MEDS ORDERED: BISACODYL E.C. 5 MG TAB PO ONE (15:00)
[2019-03-03] MEDS: CLOTRIMAZ/BETAMETH CREAM 15GM TOP SCH (20:30)
[2019-03-03] MEDS: DOCUSATE NA/SENNA CONC 1 TAB PO SCH (20:31)
[2019-03-03] MEDS: MELATONIN 3 MG TABLET PO PRN (21:27)
--- NOTE | 2019-03-03 21:37 | PN ---
Date of Progress Note: 03/03/2019 Subjective: Patient was seen this morning for followup. She was sitting in the dining room with her family, feeling much better, smiling, talking and denied any complaints at all this morning when I s aw her. Objective: Vital Signs: Reviewed. HEENT: Unremarkable. Lungs: Clear to auscultation. Heart: Heart sounds normal. Abdomen: Soft, bowel sounds normal. No guarding, rigidity, tenderness, or distention. Extremities: No leg edema. Impression: 1.Stroke. 2.Meningioma, status post surgery. 3.Cerebral edema. 4.Hypertension. Plan: Patient is on Decadron and she takes it 2 times a day, but since she started Decadron she is h aving trouble sleeping at nighttime and I explained to her that this is unfortunately expected side e ffects with steroid medication. She is also having some constipation problem and instead of liquid m edicines, She would like to try some tablets. She is already on Senokot-S 2 tablets at bedtime. We will continue that. I have ordered 1 dose of Dulcolax tablet today. She also has some rash in her g roin and perineal region and Lotrisone was ordered for that. JULIO/MODL Voice ID: [id number] Report ID: [id number]
--- NOTE | 2019-03-04 03:34 | FAST ---
SHIFT START DATE/TIME: 03/03/2019 19:00 (BOARD WRITER) SHIFT END DATE/TIME: 03/04/2019 07:00 (BOARD WRITER) NAME GLENN WALKER DATE OF : 1955 DATE OF ADMISSION: 02/15/2019 23:31 (BOARD WRITER) PHONE: AGE: 63 N# [id number] GENDER: Female ENCOUNTER PHYSICIAN: Dr. Sawyer Rios M.D. ADMISSION DIAGNOSIS: - Stroke 01 - Left Body (Right Brain) (01.1) right centrum semivola 5x3 mm DWI hypertintense lesion suggestive of acute ischemic infarct. EATING: Not assessed/no information CODE: - ORAL HYGIENE: ORAL HYGIENE - STEP 1: Does the patient complete the activity by him/herself with no assistance (physical, verbal/nonverbal cueing, setup/clean-up)? No. ORAL HYGIENE - STEP 2: Does the patient need only setup/clean-up assistance from one helper? No. ORAL HYGIENE - STEP 3: Does the patient need only verbal/nonverbal cueing or touching/steadying/contact guard assistance fro m one helper? No. ORAL HYGIENE - STEP 4: Does the patient need physical assistance - for example lifting or trunk support from one helper - wi th the helper providing less than half of the effort? Yes. 1. [id number] ADMISSION PERFORMANCE: Partial/moderate assistance CODE: 03 TOILETING HYGIENE: TOILETING HYGIENE - STEP 1: Does the patient complete the activity by him/herself with no assistance (physical, verbal/nonverbal cueing, setup/clean-up)? No. TOILETING HYGIENE - STEP 2: Does the patient need only setup/clean-up assistance from one helper? No. TOILETING HYGIENE - STEP 3: Does the patient need only verbal/nonverbal cueing or touching/steadying/contact guard assistance fro m one helper? No. TOILETING HYGIENE - STEP 4: Does the patient need physical assistance - for example lifting or trunk support from one helper - wi th the helper providing less than half of the effort? No. TOILETING HYGIENE - STEP 5: Does the patient need physical assistance - for example lifting or trunk support from one helper - wi th the helper providing more than half of the effort? No. TOILETING HYGIENE - STEP 6: Does the helper provide all of the effort? OR Is the assistance of two or more helpers required to co mplete the activity? Yes. 1. [id number] ADMISSION PERFORMANCE: Dependent CODE: 01 BATHING: Not assessed/no information CODE: - DRESSING - UPPER BODY: Not assessed/no information CODE: - DRESSING - LOWER BODY: Not assessed/no information CODE: - PUTTING ON/TAKING OFF FOOTWEAR: Not assessed/no information CODE: - ROLL LEFT AND RIGHT: ROLL LEFT AND RIGHT - STEP 1: Does the patient complete the activity by him/herself with no assistance (physical, verbal/nonverbal cueing, setup/clean-up)? No. ROLL LEFT AND RIGHT - STEP 2: Does the patient need only setup/clean-up assistance from one helper? No. ROLL LEFT AND RIGHT - STEP 3: Does the patient need only verbal/nonverbal cueing or touching/steadying/contact guard assistance fro m one helper? No. ROLL LEFT AND RIGHT - STEP 4: Does the patient need physical assistance - for example lifting or trunk support from one helper - wi th the helper providing less than half of the effort? No. ROLL LEFT AND RIGHT - STEP 5: Does the patient need physical assistance - for example lifting or trunk support from one helper - wi th the helper providing more than half of the effort? Yes. 1. [id number] ADMISSION PERFORMANCE: Substantial/maximal assistance CODE: 02 SIT TO LYING: SIT TO LYING - STEP 1: Does the patient complete the activity by him/herself with no assistance (physical, verbal/nonverbal cueing, setup/clean-up)? No. SIT TO LYING - STEP 2: Does the patient need only setup/clean-up assistance from one helper? No. SIT TO LYING - STEP 3: Does the patient need only verbal/nonverbal cueing or touching/steadying/contact guard assistance fro m one helper? No. SIT TO LYING - STEP 4: Does the patient need physical assistance - for example lifting or trunk support from one helper - wi th the helper providing less than half of the effort? No. SIT TO LYING - STEP 5: Does the patient need physical assistance - for example lifting or trunk support from one helper - wi th the helper providing more than half of the effort? No. SIT TO LYING - STEP 6: Does the helper provide all of the effort? OR Is the assistance of two or more helpers required to co mplete the activity? Yes. 1. [id number] ADMISSION PERFORMANCE: Dependent CODE: 01 LYING TO SITTING: LYING TO SITTING ON SIDE OF BED - STEP 1: Does the patient complete the activity by him/herself with no assistance (physical, verbal/nonverbal cueing, setup/clean-up)? No. LYING TO SITTING ON SIDE OF BED - STEP 2: Does the patient need only setup/clean-up assistance from one helper? No. LYING TO SITTING ON SIDE OF BED - STEP 3: Does the patient need only verbal/nonverbal cueing or touching/steadying/contact guard assistance fro m one helper? No. LYING TO SITTING ON SIDE OF BED - STEP 4: Does the patient need physical assistance - for example lifting or trunk support from one helper - wi th the helper providing less than half of the effort? No. LYING TO SITTING ON SIDE OF BED - STEP 5: Does the patient need physical assistance - for example lifting or trunk support from one helper - wi th the helper providing more than half of the effort? No. LYING TO SITTING ON SIDE OF BED - STEP 6: Does the helper provide all of the effort? OR Is the assistance of two or more helpers required to co mplete the activity? Yes. 1. [id number] ADMISSION PERFORMANCE: Dependent CODE: 01 SIT TO STAND: SIT TO STAND - STEP 1: Does the patient complete the activity by him/herself with no assistance (physical, verbal/nonverbal cueing, setup/clean-up)? No. SIT TO STAND - STEP 2: Does the patient need only setup/clean-up assistance from one helper? No. SIT TO STAND - STEP 3: Does the patient need only verbal/nonverbal cueing or touching/steadying/contact guard assistance fro m one helper? No. SIT TO STAND - STEP 4: Does the patient need physical assistance - for example lifting or trunk support from one helper - wi th the helper providing less than half of the effort? No. SIT TO STAND - STEP 5: Does the patient need physical assistance - for example lifting or trunk support from one helper - wi th the helper providing more than half of the effort? No. SIT TO STAND - STEP 6: Does the helper provide all of the effort? OR Is the assistance of two or more helpers required to co mplete the activity? Yes. 1. [id number] ADMISSION PERFORMANCE: Dependent CODE: 01 TRANSFERS: BED, CHAIR: CHAIR/MIA-HH-CEEXO TRANSFER - STEP 1: Does the patient complete the activity by him/herself with no assistance (physical, verbal/nonverbal cueing, setup/clean-up)? No. CHAIR/[id number] TRANSFER - STEP 2: Does the patient need only setup/clean-up assistance from one helper? No. CHAIR/SQT-FK-[id number] TRANSFER - STEP 3: Does the patient need only verbal/nonverbal cueing or touching/steadying/contact guard assistance fro m one helper? No. CHAIR/[id number]-[id number] TRANSFER - STEP 4: Does the patient need physical assistance - for example lifting or trunk support from one helper - wi th the helper providing less than half of the effort? No. CHAIR/FNO-QH-[id number] TRANSFER - STEP 5: Does the patient need physical assistance - for example lifting or trunk support from one helper - wi th the helper providing more than half of the effort? No. CHAIR/KIU-SY-TMMUL TRANSFER - STEP 6: Does the helper provide all of the effort? OR Is the assistance of two or more helpers required to co mplete the activity? Yes. 1. [id number] ADMISSION PERFORMANCE: Dependent CODE: 01 TRANSFER TOILET: TOILET TRANSFER - STEP 1: Does the patient complete the activity by him/herself with no assistance (physical, verbal/nonverbal cueing, setup/clean-up)? No. TOILET TRANSFER - STEP 2: Does the patient need only setup/clean-up assistance from one helper? No. TOILET TRANSFER - STEP 3: Does the patient need only verbal/nonverbal cueing or touching/steadying/contact guard assistance fro m one helper? No. TOILET TRANSFER - STEP 4: Does the patient need physical assistance - for example lifting or trunk support from one helper - wi th the helper providing less than half of the effort? No. TOILET TRANSFER - STEP 5: Does the patient need physical assistance - for example lifting or trunk support from one helper - wi th the helper providing more than half of the effort? No. TOILET TRANSFER - STEP 6: Does the helper provide all of the effort? OR Is the assistance of two or more helpers required to co mplete the activity? Yes. 1. [id number] ADMISSION PERFORMANCE: Dependent CODE: 01 TRANSFERS: CAR: Not assessed/no information CODE: - WALK 10 FEET: Not assessed/no information CODE: - 1 STEP (CURB): Not assessed/no information CODE: - PICKING UP OBJECT: Not assessed/no information CODE: - DOES THE PATIENT USE A WHEELCHAIR/SCOOTER? CODE: EXPR WHEEL 50 FEET WITH TWO TURNS: Not assessed/no information CODE: - INDICATE THE TYPE OF WHEELCHAIR/SCOOTER USED: CODE: EXPR WHEEL 150 FEET: Not assessed/no information CODE: - INDICATE THE TYPE OF WHEELCHAIR/SCOOTER USED: CODE: EXPR BLADDER AND BOWEL: H350. BLADDER CONTINENCE (3-DAY ASSESSMENT PERIOD): Always continent (no documented incontinence) CODE: 0 H400. BOWEL CONTINENCE (3-DAY ASSESSMENT PERIOD): Always continent CODE: 0
[2019-03-04 05:36] VITALS: BMI 22.8
[2019-03-04] MEDS: dexAMETHasone 4 MG TAB PO SCH ×2 (07:51→20:11)
[2019-03-04] MEDS: AMLODIPINE 5 MG TAB PO SCH (07:51)
[2019-03-04] MEDS: CRANBERRY FRUIT EXTRACT 200 MG CAP PO SCH ×2 (07:51→20:11)
[2019-03-04] MEDS: FE SULF/FA/VIT B COMP & C TAB PO SCH (07:51)
[2019-03-04] MEDS: SODIUM CHLORIDE 1 GM TAB PO SCH ×2 (07:51→17:01)
[2019-03-04] MEDS: FERROUS SULFATE 325 MG TAB PO SCH (07:52)
[2019-03-04] MEDS: APIXABAN 2.5 MG TABLET PO SCH ×2 (07:52→20:11)
[2019-03-04] MEDS: POLYETHYL GLY 3350 17 GM/DOSE PO SCH (07:52)
[2019-03-04] MEDS: CLOTRIMAZ/BETAMETH CREAM 15GM TOP SCH ×2 (09:28→20:12)
[2019-03-04] MEDS ORDERED: LACTULOSE 20 GM/30 ML UCUP PO PRN (13:32)
--- NOTE | 2019-03-04 16:20 | FAST ---
SHIFT START DATE/TIME: 03/04/2019 07:00 (COLD PRESS OPERATOR) SHIFT END DATE/TIME: 03/04/2019 19:00 (COLD PRESS OPERATOR) NAME GLENN WALKER DATE OF : 1955 DATE OF ADMISSION: 02/15/2019 23:31 (COLD PRESS OPERATOR) PHONE: AGE: 63 N# [id number] GENDER: Female ENCOUNTER PHYSICIAN: Dr. Sawyer Rios M.D. ADMISSION DIAGNOSIS: - Stroke 01 - Left Body (Right Brain) (01.1) right centrum semivola 5x3 mm DWI hypertintense lesion suggestive of acute ischemic infarct. EATING: EATING - STEP 1: Does the patient complete the activity by him/herself with no assistance (physical, verbal/nonverbal cueing, setup/clean-up)? No. EATING - STEP 2: Does the patient need only setup/clean-up assistance from one helper? Yes. 1. [id number] ADMISSION PERFORMANCE: Setup or clean-up assistance CODE: 05 ORAL HYGIENE: ORAL HYGIENE - STEP 1: Does the patient complete the activity by him/herself with no assistance (physical, verbal/nonverbal cueing, setup/clean-up)? No. ORAL HYGIENE - STEP 2: Does the patient need only setup/clean-up assistance from one helper? Yes. 1. [id number] ADMISSION PERFORMANCE: Setup or clean-up assistance CODE: 05 TOILETING HYGIENE: TOILETING HYGIENE - STEP 1: Does the patient complete the activity by him/herself with no assistance (physical, verbal/nonverbal cueing, setup/clean-up)? No. TOILETING HYGIENE - STEP 2: Does the patient need only setup/clean-up assistance from one helper? No. TOILETING HYGIENE - STEP 3: Does the patient need only verbal/nonverbal cueing or touching/steadying/contact guard assistance fro m one helper? No. TOILETING HYGIENE - STEP 4: Does the patient need physical assistance - for example lifting or trunk support from one helper - wi th the helper providing less than half of the effort? Yes. 1. [id number] ADMISSION PERFORMANCE: Partial/moderate assistance CODE: 03 BATHING: Not assessed/no information CODE: - DRESSING - UPPER BODY: DRESSING - UPPER BODY - STEP 1: Does the patient complete the activity by him/herself with no assistance (physical, verbal/nonverbal cueing, setup/clean-up)? No. DRESSING - UPPER BODY - STEP 2: Does the patient need only setup/clean-up assistance from one helper? No. DRESSING - UPPER BODY - STEP 3: Does the patient need only verbal/nonverbal cueing or touching/steadying/contact guard assistance fro m one helper? No. DRESSING - UPPER BODY - STEP 4: Does the patient need physical assistance - for example lifting or trunk support from one helper - wi th the helper providing less than half of the effort? No. DRESSING - UPPER BODY - STEP 5: Does the patient need physical assistance - for example lifting or trunk support from one helper - wi th the helper providing more than half of the effort? Yes. 1. [id number] ADMISSION PERFORMANCE: Substantial/maximal assistance CODE: 02 DRESSING - LOWER BODY: DRESSING - LOWER BODY - STEP 1: Does the patient complete the activity by him/herself with no assistance (physical, verbal/nonverbal cueing, setup/clean-up)? No. DRESSING - LOWER BODY - STEP 2: Does the patient need only setup/clean-up assistance from one helper? No. DRESSING - LOWER BODY - STEP 3: Does the patient need only verbal/nonverbal cueing or touching/steadying/contact guard assistance fro m one helper? No. DRESSING - LOWER BODY - STEP 4: Does the patient need physical assistance - for example lifting or trunk support from one helper - wi th the helper providing less than half of the effort? No. DRESSING - LOWER BODY - STEP 5: Does the patient need physical assistance - for example lifting or trunk support from one helper - wi th the helper providing more than half of the effort? Yes. 1. [id number] ADMISSION PERFORMANCE: Substantial/maximal assistance CODE: 02 PUTTING ON/TAKING OFF FOOTWEAR: FOOTWEAR - STEP 1: Does the patient complete the activity by him/herself with no assistance (physical, verbal/nonverbal cueing, setup/clean-up)? No. FOOTWEAR - STEP 2: Does the patient need only setup/clean-up assistance from one helper? No. FOOTWEAR - STEP 3: Does the patient need only verbal/nonverbal cueing or touching/steadying/contact guard assistance fro m one helper? No. FOOTWEAR - STEP 4: Does the patient need physical assistance - for example lifting or trunk support from one helper - wi th the helper providing less than half of the effort? No. FOOTWEAR - STEP 5: Does the patient need physical assistance - for example lifting or trunk support from one helper - wi th the helper providing more than half of the effort? Yes. 1. [id number] ADMISSION PERFORMANCE: Substantial/maximal assistance CODE: 02 ROLL LEFT AND RIGHT: ROLL LEFT AND RIGHT - STEP 1: Does the patient complete the activity by him/herself with no assistance (physical, verbal/nonverbal cueing, setup/clean-up)? No. ROLL LEFT AND RIGHT - STEP 2: Does the patient need only setup/clean-up assistance from one helper? No. ROLL LEFT AND RIGHT - STEP 3: Does the patient need only verbal/nonverbal cueing or touching/steadying/contact guard assistance fro m one helper? No. ROLL LEFT AND RIGHT - STEP 4: Does the patient need physical assistance - for example lifting or trunk support from one helper - wi th the helper providing less than half of the effort? No. ROLL LEFT AND RIGHT - STEP 5: Does the patient need physical assistance - for example lifting or trunk support from one helper - wi th the helper providing more than half of the effort? No. ROLL LEFT AND RIGHT - STEP 6: Does the helper provide all of the effort? OR Is the assistance of two or more helpers required to co mplete the activity? Yes. 1. [id number] ADMISSION PERFORMANCE: Dependent CODE: 01 SIT TO LYING: SIT TO LYING - STEP 1: Does the patient complete the activity by him/herself with no assistance (physical, verbal/nonverbal cueing, setup/clean-up)? No. SIT TO LYING - STEP 2: Does the patient need only setup/clean-up assistance from one helper? No. SIT TO LYING - STEP 3: Does the patient need only verbal/nonverbal cueing or touching/steadying/contact guard assistance fro m one helper? No. SIT TO LYING - STEP 4: Does the patient need physical assistance - for example lifting or trunk support from one helper - wi th the helper providing less than half of the effort? No. SIT TO LYING - STEP 5: Does the patient need physical assistance - for example lifting or trunk support from one helper - wi th the helper providing more than half of the effort? No. SIT TO LYING - STEP 6: Does the helper provide all of the effort? OR Is the assistance of two or more helpers required to co mplete the activity? Yes. 1. [id number] ADMISSION PERFORMANCE: Dependent CODE: 01 LYING TO SITTING: LYING TO SITTING ON SIDE OF BED - STEP 1: Does the patient complete the activity by him/herself with no assistance (physical, verbal/nonverbal cueing, setup/clean-up)? No. LYING TO SITTING ON SIDE OF BED - STEP 2: Does the patient need only setup/clean-up assistance from one helper? No. LYING TO SITTING ON SIDE OF BED - STEP 3: Does the patient need only verbal/nonverbal cueing or touching/steadying/contact guard assistance fro m one helper? No. LYING TO SITTING ON SIDE OF BED - STEP 4: Does the patient need physical assistance - for example lifting or trunk support from one helper - wi th the helper providing less than half of the effort? No. LYING TO SITTING ON SIDE OF BED - STEP 5: Does the patient need physical assistance - for example lifting or trunk support from one helper - wi th the helper providing more than half of the effort? No. LYING TO SITTING ON SIDE OF BED - STEP 6: Does the helper provide all of the effort? OR Is the assistance of two or more helpers required to co mplete the activity? Yes. 1. [id number] ADMISSION PERFORMANCE: Dependent CODE: 01 SIT TO STAND: SIT TO STAND - STEP 1: Does the patient complete the activity by him/herself with no assistance (physical, verbal/nonverbal cueing, setup/clean-up)? No. SIT TO STAND - STEP 2: Does the patient need only setup/clean-up assistance from one helper? No. SIT TO STAND - STEP 3: Does the patient need only verbal/nonverbal cueing or touching/steadying/contact guard assistance fro m one helper? No. SIT TO STAND - STEP 4: Does the patient need physical assistance - for example lifting or trunk support from one helper - wi th the helper providing less than half of the effort? No. SIT TO STAND - STEP 5: Does the patient need physical assistance - for example lifting or trunk support from one helper - wi th the helper providing more than half of the effort? No. SIT TO STAND - STEP 6: Does the helper provide all of the effort? OR Is the assistance of two or more helpers required to co mplete the activity? Yes. 1. [id number] ADMISSION PERFORMANCE: Dependent CODE: 01 TRANSFERS: BED, CHAIR: CHAIR/[id number]-[id number] TRANSFER - STEP 1: Does the patient complete the activity by him/herself with no assistance (physical, verbal/nonverbal cueing, setup/clean-up)? No. CHAIR/CFR-FQ-[id number] TRANSFER - STEP 2: Does the patient need only setup/clean-up assistance from one helper? No. CHAIR/[id number]-MG-[id number] TRANSFER - STEP 3: Does the patient need only verbal/nonverbal cueing or touching/steadying/contact guard assistance fro m one helper? No. CHAIR/DNR-[id number] TRANSFER - STEP 4: Does the patient need physical assistance - for example lifting or trunk support from one helper - wi th the helper providing less than half of the effort? No. CHAIR/[id number] TRANSFER - STEP 5: Does the patient need physical assistance - for example lifting or trunk support from one helper - wi th the helper providing more than half of the effort? No. CHAIR/[id number] TRANSFER - STEP 6: Does the helper provide all of the effort? OR Is the assistance of two or more helpers required to co mplete the activity? Yes. 1. [id number] ADMISSION PERFORMANCE: Dependent CODE: 01 TRANSFER TOILET: TOILET TRANSFER - STEP 1: Does the patient complete the activity by him/herself with no assistance (physical, verbal/nonverbal cueing, setup/clean-up)? No. TOILET TRANSFER - STEP 2: Does the patient need only setup/clean-up assistance from one helper? No. TOILET TRANSFER - STEP 3: Does the patient need only verbal/nonverbal cueing or touching/steadying/contact guard assistance fro m one helper? No. TOILET TRANSFER - STEP 4: Does the patient need physical assistance - for example lifting or trunk support from one helper - wi th the helper providing less than half of the effort? No. TOILET TRANSFER - STEP 5: Does the patient need physical assistance - for example lifting or trunk support from one helper - wi th the helper providing more than half of the effort? Yes. 1. [id number] ADMISSION PERFORMANCE: Substantial/maximal assistance CODE: 02 TRANSFERS: CAR: Not assessed/no information CODE: - WALK 10 FEET: Not assessed/no information CODE: - 1 STEP (CURB): Not assessed/no information CODE: - PICKING UP OBJECT: Not assessed/no information CODE: - DOES THE PATIENT USE A WHEELCHAIR/SCOOTER? Q1. DOES THE PATIENT USE A WHEELCHAIR/SCOOTER?: Yes CODE: 1 WHEEL 50 FEET WITH TWO TURNS: Not assessed/no information CODE: - INDICATE THE TYPE OF WHEELCHAIR/SCOOTER USED: RR1. INDICATE THE TYPE OF WHEELCHAIR/SCOOTER USED.: Manual CODE: 1 WHEEL 150 FEET: Not assessed/no information CODE: - INDICATE THE TYPE OF WHEELCHAIR/SCOOTER USED: SS1. INDICATE THE TYPE OF WHEELCHAIR/SCOOTER USED.: Manual CODE: 1 BLADDER AND BOWEL: H350. BLADDER CONTINENCE (3-DAY ASSESSMENT PERIOD): Always continent (no documented incontinence) CODE: 0 H400. BOWEL CONTINENCE (3-DAY ASSESSMENT PERIOD): Always continent CODE: 0 SIGNATURE PANEL: The following modified sections: 1. [id number] Admission Performance, 1. [id number] Admission Performance, 1. [id number] Admission Performance, 1. [id number] Admission Performance, 1. [id number] Admission Performance, 1. [id number] Admission Performance, Q1. Does the patient use a wheelchair/scooter?, RR1. Indicate the type of wheelchair/scooter used., Code, Code, Code, SS1. Indicate the type of wheelchair/scooter used ., H350. Bladder Continence (3-day assessment period), H400. Bowel Continence (3-day assessment perio d), 1. [id number] Admission Performance, 1. [id number] Admission Performance, 1. [id number] Admission Performa nce, 1. [id number] Admission Performance, 1. [id number] Admission Performance, 1. [id number] Admission Perform ance, 1. [id number] Admission Performance, 1. [id number] Admission Performance were [electronically] signed by Hilda Ayers C.N.A. on Sat Mar 04 2019 16:19:37 GMT-0600 (Central Standard Time)
[2019-03-04] MEDS: DOCUSATE NA/SENNA CONC 1 TAB PO SCH (20:11)
[2019-03-05] MEDS: CLOTRIMAZ/BETAMETH CREAM 15GM TOP SCH ×2 (08:00→19:53)
[2019-03-05] MEDS: POLYETHYL GLY 3350 17 GM/DOSE PO SCH (08:00)
[2019-03-05] MEDS: APIXABAN 2.5 MG TABLET PO SCH (08:12)
[2019-03-05] MEDS: CRANBERRY FRUIT EXTRACT 200 MG CAP PO SCH ×2 (08:12→19:52)
[2019-03-05] MEDS: dexAMETHasone 4 MG TAB PO SCH (08:12)
[2019-03-05] MEDS: SODIUM CHLORIDE 1 GM TAB PO SCH ×2 (08:13→17:17)
[2019-03-05] MEDS: FERROUS SULFATE 325 MG TAB PO SCH (08:13)
[2019-03-05] MEDS: FE SULF/FA/VIT B COMP & C TAB PO SCH (08:13)
[2019-03-05] MEDS: AMLODIPINE 5 MG TAB PO SCH (08:13)
--- NOTE | 2019-03-05 11:27 | RAD REPORT ---
EXAM DESCRIPTION: CT - Head Brain Wo Cont - 03/05/2019 11:16 am CLINICAL HISTORY: Pressure on the right eye Headache, drowsiness COMPARISON: Head Brain Wo Cont dated 03/01/2019; Head Brain Wo Cont dated 01/24/2019 TECHNIQUE: All CT scans are performed using dose optimization technique as appropriate and may inclu de automated exposure control or mA/KV adjustment according to patient size. FINDINGS: Diminished density in the right frontal lobe is again seen with right frontal craniotomy c hanges present slightly increased since comparative study.No acute bleed is present.Since the compara tive study, slightly increased in the right to left midline shift in the region of the right frontal lobe is noted. 3 mm right to left shift is present. No hydrocephalus seen. The paranasal sinuses and mastoids are clear. IMPRESSION: Slight increase in right frontal lobe edematous changes are seen 3 mm right to left midl ine shift of the right frontal lobe noted on today's study. No acute bleed or hydrocephalus. 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
[2019-03-05] MEDS ORDERED: dexAMETHasone 10 MG/ML VIAL IV ONE (12:00)
--- NOTE | 2019-03-05 12:59 | FAST ---
ENCOUNTER DATE AND TIME: 03/05/2019 08:00 (STAFF DEVELOPMENT EDUCATOR) NAME GLENN WALKER DATE OF : 1955 DATE OF ADMISSION: 02/15/2019 23:31 (STAFF DEVELOPMENT EDUCATOR) PHONE: AGE: 63 N# [id number] GENDER: Female ENCOUNTER PHYSICIAN: Dr. Sawyer Rios M.D. ADMISSION DIAGNOSIS: - Stroke 01 - Left Body (Right Brain) (01.1) right centrum semivola 5x3 mm DWI hypertintense lesion suggestive of acute ischemic infarct. EATING: Not assessed/no information CODE: - ORAL HYGIENE: ORAL HYGIENE - STEP 1: Does the patient complete the activity by him/herself with no assistance (physical, verbal/nonverbal cueing, setup/clean-up)? No. ORAL HYGIENE - STEP 2: Does the patient need only setup/clean-up assistance from one helper? No. ORAL HYGIENE - STEP 3: Does the patient need only verbal/nonverbal cueing or touching/steadying/contact guard assistance fro m one helper? Yes. 1. [id number] ADMISSION PERFORMANCE: Supervision or touching assistance CODE: 04 TOILETING HYGIENE: TOILETING HYGIENE - STEP 1: Does the patient complete the activity by him/herself with no assistance (physical, verbal/nonverbal cueing, setup/clean-up)? No. TOILETING HYGIENE - STEP 2: Does the patient need only setup/clean-up assistance from one helper? No. TOILETING HYGIENE - STEP 3: Does the patient need only verbal/nonverbal cueing or touching/steadying/contact guard assistance fro m one helper? No. TOILETING HYGIENE - STEP 4: Does the patient need physical assistance - for example lifting or trunk support from one helper - wi th the helper providing less than half of the effort? No. TOILETING HYGIENE - STEP 5: Does the patient need physical assistance - for example lifting or trunk support from one helper - wi th the helper providing more than half of the effort? Yes. 1. [id number] ADMISSION PERFORMANCE: Substantial/maximal assistance CODE: 02 BATHING: Not assessed/no information CODE: - DRESSING - UPPER BODY: DRESSING - UPPER BODY - STEP 1: Does the patient complete the activity by him/herself with no assistance (physical, verbal/nonverbal cueing, setup/clean-up)? No. DRESSING - UPPER BODY - STEP 2: Does the patient need only setup/clean-up assistance from one helper? No. DRESSING - UPPER BODY - STEP 3: Does the patient need only verbal/nonverbal cueing or touching/steadying/contact guard assistance fro m one helper? No. DRESSING - UPPER BODY - STEP 4: Does the patient need physical assistance - for example lifting or trunk support from one helper - wi th the helper providing less than half of the effort? Yes. 1. [id number] ADMISSION PERFORMANCE: Partial/moderate assistance CODE: 03 DRESSING - LOWER BODY: DRESSING - LOWER BODY - STEP 1: Does the patient complete the activity by him/herself with no assistance (physical, verbal/nonverbal cueing, setup/clean-up)? No. DRESSING - LOWER BODY - STEP 2: Does the patient need only setup/clean-up assistance from one helper? No. DRESSING - LOWER BODY - STEP 3: Does the patient need only verbal/nonverbal cueing or touching/steadying/contact guard assistance fro m one helper? No. DRESSING - LOWER BODY - STEP 4: Does the patient need physical assistance - for example lifting or trunk support from one helper - wi th the helper providing less than half of the effort? No. DRESSING - LOWER BODY - STEP 5: Does the patient need physical assistance - for example lifting or trunk support from one helper - wi th the helper providing more than half of the effort? Yes. 1. [id number] ADMISSION PERFORMANCE: Substantial/maximal assistance CODE: 02 PUTTING ON/TAKING OFF FOOTWEAR: FOOTWEAR - STEP 1: Does the patient complete the activity by him/herself with no assistance (physical, verbal/nonverbal cueing, setup/clean-up)? No. FOOTWEAR - STEP 2: Does the patient need only setup/clean-up assistance from one helper? No. FOOTWEAR - STEP 3: Does the patient need only verbal/nonverbal cueing or touching/steadying/contact guard assistance fro m one helper? No. FOOTWEAR - STEP 4: Does the patient need physical assistance - for example lifting or trunk support from one helper - wi th the helper providing less than half of the effort? No. FOOTWEAR - STEP 5: Does the patient need physical assistance - for example lifting or trunk support from one helper - wi th the helper providing more than half of the effort? Yes. 1. [id number] ADMISSION PERFORMANCE: Substantial/maximal assistance CODE: 02 DOES THE PATIENT USE A WHEELCHAIR/SCOOTER? CODE: EXPR INDICATE THE TYPE OF WHEELCHAIR/SCOOTER USED: CODE: EXPR INDICATE THE TYPE OF WHEELCHAIR/SCOOTER USED: CODE: EXPR BLADDER AND BOWEL: CODE: EXPR CODE: EXPR SIGNATURE PANEL: The following modified sections: 1. [id number] Admission Performance, 1. [id number] Admission Performance, 1. [id number] Admission Performance, 1. [id number] Admission Performance, 1. [id number] Admission Performance, 1. [id number] Admission Performance were [electronically] signed by Lisa Piña OT on WedMar 05 12:58:20 GMT-0600 (Central Standard Time)
[2019-03-05] MEDS ORDERED: dexAMETHasone 4 MG/ML VIAL IV SCH ×2 (16:00→18:00)
[2019-03-05 20:19] VITALS: TEMP 97.3
[2019-03-05 21:56] VITALS: BP 140/67
--- NOTE | 2019-03-08 11:36 | DS ---
Date of Discharge: 03/05/2019 Disposition: Transferred to [facility] for higher level of care. Laboratory Data: Labs done during this hospitalization: Last blood work on March 02, 2019, white count 9.1, hemoglobin 11.3, platelets 320. Sodium 141, potassium 3.9, chloride 110, bicarb 25, BUN 18, creatinine 0.49, glucose 195. Liver function tests unremarkable. Urine culture grew pseudomonas and enterococcus from February 17, 2019. Final Diagnoses: 1.Stroke. 2.Meningioma. 3.Urinary tract infection. 4.Anemia. 5.Hyperlipidemia. Hospital Course: This is a 63-year-old pleasant female patient who had surgery for removal of mening ioma in [place] at [facility] and also had a stroke. After she was brought to rehab floor, she received physical therapy under guidance of Dr. Rios. She was getting Eliquis 2.5 mg twice a day for DVT prophylaxis. Other medications were continued. She responded well to physical therapy. Urine culture grew 2 different bacteria and was treated with oral antibiotics, Cipro. She was impr oving, was feeling fine until 4 days ago. So on March 01, 2019, she had episode where she was fee ling nauseated, crying and just did not feel good at all. She denied any headache. So, we ordered C AT scan of the head without contrast and that did reveal some cerebral edema around the operative sit e in the right frontal lobe region, but there was no evidence of midline shift. Result was discussed with neurologist, Dr. Rios and he started her on Decadron 4 mg twice a day. Patient responded w ell to this. She felt much better back to her normal self, happy, smiling and had no complaints for 3 days and today on the day of discharge, all of a sudden she started complaining of pressure and dis comfort behind her right eye. No other complaints besides this, so we did another CAT scan of the br ain without contrast and this CAT scan has shown slight progression of the cerebral edema with 3 mm m idline shift. There was no evidence of any hemorrhage. This finding was discussed with Dr. Rios and we both agreed that the patient should be transferred to [place] at [facility] for high er level of care and her last dose of Eliquis was this morning and I have discontinued that in antici pation of if she needs any surgical intervention and she should not be on such anticoagulation medica tion, so I have discontinued that medication. All these details were discussed with physician who wa s accepting the patient at [facility], Dr. Tracy and I have also discussed details with the dolores eduardo's daughter on the phone and once arrangements completed, the patient was transferred via ground ambulance for higher level of care. After this CAT scan report today, we have discontinued oral Dec adron and started her on IV Decadron 6 mg 1 dose was given IV and then 4 mg every 6 hours was ordered . JULIO/MODL Voice ID: [id number] Report ID: [id number]
--- NOTE | 2019-03-09 10:31 | FAST ---
ENCOUNTER DATE AND TIME: 03/02/2019 08:00 (OPERATING SYSTEMS PROGRAMMER) NAME GLENN WALKER DATE OF : 1955 DATE OF ADMISSION: 02/15/2019 23:31 (OPERATING SYSTEMS PROGRAMMER) PHONE: AGE: 63 N# [id number] GENDER: Female ENCOUNTER PHYSICIAN: Dr. Sawyer Rios M.D. ADMISSION DIAGNOSIS: - Stroke 01 - Left Body (Right Brain) (01.1) right centrum semivola 5x3 mm DWI hypertintense lesion suggestive of acute ischemic infarct. ROLL LEFT AND RIGHT: ROLL LEFT AND RIGHT - STEP 1: Does the patient complete the activity by him/herself with no assistance (physical, verbal/nonverbal cueing, setup/clean-up)? No. ROLL LEFT AND RIGHT - STEP 2: Does the patient need only setup/clean-up assistance from one helper? No. ROLL LEFT AND RIGHT - STEP 3: Does the patient need only verbal/nonverbal cueing or touching/steadying/contact guard assistance fro m one helper? No. ROLL LEFT AND RIGHT - STEP 4: Does the patient need physical assistance - for example lifting or trunk support from one helper - wi th the helper providing less than half of the effort? Yes. 1. [id number] ADMISSION PERFORMANCE: Partial/moderate assistance CODE: 03 SIT TO LYING: SIT TO LYING - STEP 1: Does the patient complete the activity by him/herself with no assistance (physical, verbal/nonverbal cueing, setup/clean-up)? No. SIT TO LYING - STEP 2: Does the patient need only setup/clean-up assistance from one helper? No. SIT TO LYING - STEP 3: Does the patient need only verbal/nonverbal cueing or touching/steadying/contact guard assistance fro m one helper? No. SIT TO LYING - STEP 4: Does the patient need physical assistance - for example lifting or trunk support from one helper - wi th the helper providing less than half of the effort? Yes. 1. [id number] ADMISSION PERFORMANCE: Partial/moderate assistance CODE: 03 LYING TO SITTING: LYING TO SITTING ON SIDE OF BED - STEP 1: Does the patient complete the activity by him/herself with no assistance (physical, verbal/nonverbal cueing, setup/clean-up)? No. LYING TO SITTING ON SIDE OF BED - STEP 2: Does the patient need only setup/clean-up assistance from one helper? No. LYING TO SITTING ON SIDE OF BED - STEP 3: Does the patient need only verbal/nonverbal cueing or touching/steadying/contact guard assistance fro m one helper? No. LYING TO SITTING ON SIDE OF BED - STEP 4: Does the patient need physical assistance - for example lifting or trunk support from one helper - wi th the helper providing less than half of the effort? No. LYING TO SITTING ON SIDE OF BED - STEP 5: Does the patient need physical assistance - for example lifting or trunk support from one helper - wi th the helper providing more than half of the effort? Yes. 1. [id number] ADMISSION PERFORMANCE: Substantial/maximal assistance CODE: 02 SIT TO STAND: SIT TO STAND - STEP 1: Does the patient complete the activity by him/herself with no assistance (physical, verbal/nonverbal cueing, setup/clean-up)? No. SIT TO STAND - STEP 2: Does the patient need only setup/clean-up assistance from one helper? No. SIT TO STAND - STEP 3: Does the patient need only verbal/nonverbal cueing or touching/steadying/contact guard assistance fro m one helper? No. SIT TO STAND - STEP 4: Does the patient need physical assistance - for example lifting or trunk support from one helper - wi th the helper providing less than half of the effort? Yes. 1. [id number] ADMISSION PERFORMANCE: Partial/moderate assistance CODE: 03 TRANSFERS: BED, CHAIR: CHAIR/[id number] TRANSFER - STEP 1: Does the patient complete the activity by him/herself with no assistance (physical, verbal/nonverbal cueing, setup/clean-up)? No. CHAIR/[id number] TRANSFER - STEP 2: Does the patient need only setup/clean-up assistance from one helper? No. CHAIR/[id number]-[id number] TRANSFER - STEP 3: Does the patient need only verbal/nonverbal cueing or touching/steadying/contact guard assistance fro m one helper? No. CHAIR/PSB-RV-[id number] TRANSFER - STEP 4: Does the patient need physical assistance - for example lifting or trunk support from one helper - wi th the helper providing less than half of the effort? Yes. 1. [id number] ADMISSION PERFORMANCE: Partial/moderate assistance CODE: 03 TRANSFER TOILET: TOILET TRANSFER - STEP 1: Does the patient complete the activity by him/herself with no assistance (physical, verbal/nonverbal cueing, setup/clean-up)? No. TOILET TRANSFER - STEP 2: Does the patient need only setup/clean-up assistance from one helper? No. TOILET TRANSFER - STEP 3: Does the patient need only verbal/nonverbal cueing or touching/steadying/contact guard assistance fro m one helper? No. TOILET TRANSFER - STEP 4: Does the patient need physical assistance - for example lifting or trunk support from one helper - wi th the helper providing less than half of the effort? Yes. 1. [id number] ADMISSION PERFORMANCE: Partial/moderate assistance CODE: 03 TRANSFERS: CAR: Not assessed/no information CODE: - WALK 10 FEET: WALK 10 FEET - STEP 1: Does the patient complete the activity by him/herself with no assistance (physical, verbal/nonverbal cueing, setup/clean-up)? No. WALK 10 FEET - STEP 2: Does the patient need only setup/clean-up assistance from one helper? No. WALK 10 FEET - STEP 3: Does the patient need only verbal/nonverbal cueing or touching/steadying/contact guard assistance fro m one helper? No. WALK 10 FEET - STEP 4: Does the patient need physical assistance - for example lifting or trunk support from one helper - wi th the helper providing less than half of the effort? No. WALK 10 FEET - STEP 5: Does the patient need physical assistance - for example lifting or trunk support from one helper - wi th the helper providing more than half of the effort? Yes. 1. [id number] ADMISSION PERFORMANCE: Substantial/maximal assistance CODE: 02 WALK 50 FEET: Not assessed/no information CODE: - WALK 150 FEET: Not assessed/no information CODE: - WALK 10 FEET UNEVEN: Not assessed/no information CODE: - 1 STEP (CURB): Not assessed/no information CODE: - PICKING UP OBJECT: Not assessed/no information CODE: - DOES THE PATIENT USE A WHEELCHAIR/SCOOTER? Q1. DOES THE PATIENT USE A WHEELCHAIR/SCOOTER?: Yes CODE: 1 WHEEL 50 FEET WITH TWO TURNS: WHEEL 50 FEET WITH TWO TURNS - STEP 1: Does the patient complete the activity by him/herself with no assistance (physical, verbal/nonverbal cueing, setup/clean-up)? No. WHEEL 50 FEET WITH TWO TURNS - STEP 2: Does the patient need only setup/clean-up assistance from one helper? No. WHEEL 50 FEET WITH TWO TURNS - STEP 3: Does the patient need only verbal/nonverbal cueing or touching/steadying/contact guard assistance fro m one helper? No. WHEEL 50 FEET WITH TWO TURNS - STEP 4: Does the patient need physical assistance - for example lifting or trunk support from one helper - wi th the helper providing less than half of the effort? No. WHEEL 50 FEET WITH TWO TURNS - STEP 5: Does the patient need physical assistance - for example lifting or trunk support from one helper - wi th the helper providing more than half of the effort? Yes. 1. [id number] ADMISSION PERFORMANCE: Substantial/maximal assistance CODE: 02 INDICATE THE TYPE OF WHEELCHAIR/SCOOTER USED: RR1. INDICATE THE TYPE OF WHEELCHAIR/SCOOTER USED.: Manual CODE: 1 WHEEL 150 FEET: Not assessed/no information CODE: - INDICATE THE TYPE OF WHEELCHAIR/SCOOTER USED: CODE: EXPR BLADDER AND BOWEL: CODE: EXPR CODE: EXPR SIGNATURE PANEL: The following modified sections: 1. [id number] Admission Performance, 1. [id number] Admission Performance, 1. [id number] Admission Performance, 1. [id number] Admission Performance, 1. [id number] Admission Performance, 1. [id number] Admission Performance, 1. [id number] Admission Performance, 1. [id number] Admission Performance , Q1. Does the patient use a wheelchair/scooter?, 1. [id number] Admission Performance, RR1. Indicate the type of wheelchair/scooter used., Code were [electronically] signed by Violet Mendes PTA on WedMar 09 2019 10:31:04 GMT-0600 (Central Standard Time)
== END 2019-03-05 21:00 | disposition short-term general hospital (02) | DRG 64 ==
LOC: 5TH 02-15 23:31
PROVIDERS: ADMIT Internal Medicine; ATTEND Internal Medicine
DX: I63.9 Cerebral infarction, unspecified (principal); G93.6 Cerebral edema; G81.94 Hemiplegia, unspecified affecting left nondominant side; N39.0 Urinary tract infection, site not specified; R90.89 Other abnormal findings on diagnostic imaging of central nervous system; R29.898 Other symptoms and signs involving the musculoskeletal system; D32.0 Benign neoplasm of cerebral meninges
CPT/HCPCS: 36415; 70450; 80048; 80076; 81001; 82040; 83735; 84134; 85025; 87077; 87086; 87088; 87186; 92523; 97110; 97112; 97116; 97127; 97161; 97530; J1100; J1650; J8540

== ENCOUNTER 2019-03-10 09:26 | Inpatient (IN) | payer OTHER ==
--- NOTE | 2019-03-10 14:32 | R.PREADM ---
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 Sawyer Rios M.D. [facility] [id number] [id number] NAME GLENN ERNANDEZ AD[address]ESS [address] [facility] [place] [address] DATE OF 1955 AGE 63 SSN# [id number] GENDER female MARITAL STATUS RACE ADMIT FROM 02 - [facility] PRE-HOSPITAL LIVING SETTING 01 - Home (private home/apt. board/care, assisted living, care home, transitional living) HOME TYPE AND DETAILS Type of home: single family house # of levels in the residence: 1 # of steps to enter the residence: 0 # of steps within the residence: 0 PRE-HOSPITAL LIVING WITH Alone FAMILY SUPPORT Yes PRIMARY FAMILY CONTACT NAME Jossy Vu PRIMARY FAMILY CONTACT PHONE PHONE PRIMARY FAMILY CONTACT ON ADM.? no IS PRIMARY FAMILY CONTACT AUTH. REP.? no 1ST EMERGENCY CONTACT Jossy Vu 1ST CONTACT PHONE PHONE 1ST CONTACT ON ADM. no IS 1ST CONTACT AUTH. REP.? no PHONE 2ND CONTACT ON ADM.? 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 No ANOTHER [employer] RESPONSIBLE? No PRIMARY REHAB/ACUTE DIAGNOSIS: Brain Mass Intracranial Hemorrhage Right [place] Territory Infarct ONSET DATE 01/25/2019 REHAB IMPAIRMENT CATEGORY (CHRISTY): 03 Nontraumatic brain injury (NTBI) MEETS 60% rule PRIMARY DIAGNOSIS-RELATED SURGERIES: Craniotomy/Craniectomy, Excision Tumor - performed by Graciela Sal on 01/31/2019 COMORBID REHAB/ACUTE DIAGNOSES: - N/A Anemia HX of Stroke meningioma Cerebral Edema Intracranial Hemorrhage Hemiparesis ESSENTIAL HYPERTENSION Brain Mass SUMMARY OF ACUTE HOSPITALIZATION: Pt. is a 63 yo Right-handed female. On 01/25/2019 she was admitted to [facility] with diagnosis Brain Mass. Her impairment category is Brain Dysfunction 02 - Non-traumatic Brain Dysfunction (02.1). Pre-morbidly, Pt. was independent/mod-I in Locomotion, Safety Awareness, Balance, Social Cognition, T ransfers Control, Sphincter Control, Self-Care, Communication, and Endurance; and she had good Locomo tion, Safety Awareness, Balance, Social Cognition, Transfers Control, Sphincter Control, Self-Care, C ommunication, and Endurance. Currently, she has deficits of Locomotion, Balance, Safety Awareness, Transfers Control, Self-Care, E ndurance, and Communication. Pt. is now referred to [facility] for acute in-patient rehabilitation in order to maximize patient's functional independence in activities of daily living, strength, ROM, and mobi lity. Patient has realistic goal of being discharged at assistance level 6-Danielle to reside at Home with Fam adriana/Relatives. Glenn Ernandez is a 63 year old female that lives alone in a single nuzhat home. She was independent with all ADLs and self care. 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 Postoperative she had infarct on the right JULIO territory and possible amyloid angiopathy and was discharge to Inpatient rehab. On 03/05/2019, she complained of headache and feeling bad and Ct Scan revealed that she had slightly increased in the right to left midline shift in the region of the right frontal lobe and was admitted to [facility] and treated. She is now medically stable but in need of 24-hour nursing, doctor supervision and oversite while receiving participate in 3hours of therapy a day/15 hours per week and receive care with an intensive interdisciplinary approach. PAST MEDICAL HISTORY Anemia Brain Mass Cerebral Edema ESSENTIAL HYPERTENSION HX of Stroke Hemiparesis Intracranial Hemorrhage meningioma PAST SURGICAL HISTORY: CHOLECYSTECTOMY Oophorectomy MEDICATION ALLERGIES: No Known Drug Allergies (NKDA) ENVIRONMENTAL ALLERGIES: None Known - Substance Allergies None Known - Other Allergies None Known CODE STATUS: Full code WEIGHT/HEIGHT/BMI: WEIGHT 114 lbs HEIGHT 5' 2" BMI 20.8 DIET: - Diet Type Regular - Diet - Solid Texture Regular - Diet - Liquid Texture Regular - Tube Feed N/A SKIN DIAGRAM: Incision on Head; extent - small; stage - NS(Not Stageable). Treatment - Per Physician's Orders. REVIEW OF SYSTEMS: - Gen Alert and awake Lying in bed No apparent distress Oriented to: person, time, and place - Vital Signs Temperature: 98.2 F SBP/DBP: 142/75 Pulse: 64 Resp: 15 Vital signs stable, afebrile - CVS RRR VITAL SIGNS Temperature: 98.2 F SBP/DBP: 142/75 Pulse: 64 Resp: 15 Vital signs stable, afebrile MEDICATIONS/TREATMENT: Other- See attached MAR (Medication Administration Record) Glenn Ernandez.pdf. CURRENT SPHINCTER CONTROL: Pre-hospital bladder status: continent # of bladder accidents in the last 7 days prior to screenin Pre-hospital bowel status: continent # of bowel accidents in the last 7 days prior to screenin Last Bowel Movement Date: CURRENT LOCOMOTION STATUS: distance traveled in wheelchair 400 feet distance walked 0 feet DETAILED CURRENT FUNCTIONAL STATUS: - Bladder accident frequency: Ind - No accidents in the past 7 days - Bowel accident frequency: Ind - No accidents in the past 7 days - Walking score based on distance walked: 0(N/A) - Wheelchair score based on distance traveled: 0(N/A) score based on distance traveled: 3(>=150ft) QI SCORES: - Self-Care A. Eating 05-Setup or clean-up assistance B. Oral hygiene 05-Setup or clean-up assistance C. Toileting hygiene 03-Partial/moderate assistance E. Shower/bathe self 02-Substantial/maximal assistance F. Upper body dressing 03-Partial/moderate assistance G. Lower body dressing 02-Substantial/maximal assistance H. Putting on/taking off footwear 01-Dependent - Mobility A. Roll left and right 03-Partial/moderate assistance B. Sit to lying 02-Substantial/maximal assistance C. Lying to sitting on side of bed 02-Substantial/maximal assistance D. Sit to stand 02-Substantial/maximal assistance E. Chair/[id number] transfer 02-Substantial/maximal assistance F. Toilet transfer 02-Substantial/maximal assistance G. Car transfer 88-Not attempted due to medical condition or safety concerns I. Walk 10 feet 88-Not attempted due to medical condition or safety concerns J. Walk 50 feet with two turns 88-Not attempted due to medical condition or safety concerns K. Walk 150 feet 88-Not attempted due to medical condition or safety concerns L. Walking 10 feet on uneven surfaces 88-Not attempted due to medical condition or safety concerns M. 1 step (curb) 88-Not attempted due to medical condition or safety concerns N. 4 steps 88-Not attempted due to medical condition or safety concerns O. 12 steps 88-Not attempted due to medical condition or safety concerns P. Picking up object 88-Not attempted due to medical condition or safety concerns R. Wheel 50 feet with two turns 02-Substantial/maximal assistance S. Wheel 150 feet 02-Substantial/maximal assistance - Bladder and Bowel Bladder continence 0-Always continent Bowel continence 0-Always continent - Endurance Poor - Balance Poor - Safety Awareness Fair CURRENT FUNC. DEFICITS: Self-Care, Mobility, Endurance, Balance, and Safety Awareness CURRENT / PREVIOUS ASSISTIVE DEVICES: 3-in-1 Commode BSC Dentures Glasses Hospital Bed Rolling Walker Shower Chair Tub Bench Wheelchair CURRENT USE ASSISTIVE DEVICES: SCDs HISTORY OF FALLS. HAS THE PATIENT HAD TWO OR MORE FALLS IN THE PAST YEAR OR ANY FALL WITH INJURY IN T HE PAST YEAR?: No PRIOR SURGERY. DID THE PATIENT HAVE MAJOR SURGERY DURING THE 100 DAYS PRIOR TO ADMISSION?: Yes THERAPY NOTES FROM ACUTE CARE: Attached. SPECIAL NEEDS: - Safety Concerns Fall precautions needed due to Poor balance Skin breakdown precautions needed due to skin breakdown risk PRECAUTIONS: - Fall Precaution Bed alarm TABS alarm Wheel chair alarm PATIENT NEEDS ACTIVE AND ONGOING THERAPEUTIC INTERVENTION OF MULTIPLE THERAPY DISCIPLINES, INCLUDING: - Occupational Therapy Cognitive Retraining. Visual Perceptual Training. - Dietary and Nutrition Adequate Nutrition. Nutritional Education. Nutritional Supplements. - Speech Therapy Cognitive Training. Expressive Language Skills. Memory Strategies. Receptive Language Skills. Speech Intelligibility Training. PATIENT NEEDS CLOSE MEDICAL SUPERVISION BY A REHABILITATION PHYSICIAN FOR: Coordination of Treatment Team Medical and Co-Morbidity Management Wound Care PATIENT REQUIRES 24X7 REHAB NURSING FOR MEDICAL AND FUNCTIONAL MGT. OF THE FOLLOWING DEFICITS: Disease Management Medication Management Patient/Family Education Providing Safe Environment Skin Integrity PATIENT REQUIRES INTENSIVE, COORDINATED INTERDISCIPLINARY APPROACH TO REHAB: Arranging Home Equipment/Services Discharge Planning Family Intervention/Training Open [employer] Quarry Supervisor/Case Management PATIENT REHAB POTENTIAL: Ephraim ERNANDEZ is able and expected to receive 3 hours of individualized therapy daily on at least 5 of e very 7 days Ephraim ERNANDEZ's prognosis for significant practical improvement within a reasonable period of time appea rs Good Expected level of measurable improvement will be of a practical value to Ephraim ERNANDEZ's functional capa city or adaptations to impairments Has a viable Discharge Plan Medically appropriate; condition is sufficiently stable to participate in intensive rehab program DISCHARGE PLAN: - Estimated Length of Stay (days) 13. - Consensus on plan Discharge plan has been discussed with primary caregiver. Patient/Family is in agreement with the gavino n. Primary caregiver is in agreement with the plan. - Patient/Family Goals Return home with assistance. - Planned Living Setting Upon Discharge Home, to live with Family/Relatives. Transitional Living. RECOMMENDED CARE LEVEL: IRF RECOMMENDATION DETAILS: Recommended Admission to Comprehensive Rehabilitation Program to Increase Functional [place] SCREENER'S COMPLETENESS CONFIRMATION: - Screening Confirmation The patient data collection on this preadmission screening form is finished PHYSICIANS REVIEW AND ADMISSION DETERMINATION Admit - Based on my review of the Pre-Admission Screening results, in my medical judgment and experie nce, I concur with the findings and recommend admission to [facility], as this patient requires an IRF level of care. SIGNATURE PANEL: Clinical Liaison - [electronically] signed by Barb Romero on 03/09/2019 at 15:55 (BEVELING MACHINE OPERATOR) Physician Reviewer - [electronically] signed by Dr. Sawyer Rios M.D. on 03/10/2019 at 14:32 (BEVELING MACHINE OPERATOR )
--- OUTSIDE RECORDS SUMMARY | 2019-03-10 19:08 | XMS REPORT ---
:1955 [facility] [address] [place] [address] Care Team Providers Name Role Phone NAELMER BARRONBETTINAEULOGIO WILCOX Unavailable Unavailable TALAT SERNAOMA Unavailable Unavailable Problems This patient has no known problems. Allergies, Adverse Reactions, Alerts This patient has no known allergies or adverse reactions. Medications This patient has no known medications. Results Test Description Test Time Test Comments Text Results Atomic Results Result Comments CT, BRAIN, WITHOUT 2019-03-10 13:06:00 Needed for FINAL REPORT PATIENT ID: CONTRAST discharge. [id number] CT, BRAIN, WITHOUT CONTRAST CLINICAL INDICATION: follow up cerebral edema, s/p meningioma resection COMPARISON: March 06, 2019 TECHNIQUE: Noncontrast axial CT imaging of the brain and skull. DOSE REDUCTION: Dose modulation, iterative reconstruction, and/or weight-based adjustment of the mA/kV was utilized to reduce the radiation dose to as low as reasonably achievable. FINDINGS: Redemonstrated right frontal craniotomy with subjacent encephalomalacia and progressive volume loss within the right frontal lobe. Decreased mass effect compared to prior exam with interval resolution of midline shift. No intracranial hemorrhage, midline shift or mass effect. Midline structures are normally developed. Mild chronic microvascular ischemic changes of the periventricular and subcortical white matter are present. No hydrocephalus. Orbits are within normal limits. No obstructive paranasal sinus disease. IMPRESSION: Redemonstrated right frontal craniotomy with subjacent encephalomalacia and progressive volume loss within the right frontal lobe. Decreased mass effect compared to prior exam with interval resolution of midline shift If there is persistent clinical concern for intracranial pathology, MR examination is recommended for further characterization. Signed: Willam Max MDRshaun Verified Date/Time: 03/10/2019 13:06:29 Reading Location: [facility] Radiology Reading Room C METABOLIC PANEL 2019-03-10 04:39:00 Test Item Value Reference Range Comments SODIUM (BEAKER) (test 140 meq/L 136-145 mdvj=511) POTASSIUM (BEAKER) (test 4.1 meq/L 3.5-5.1 udhy=656) CHLORIDE (BEAKER) (test 109 meq/L 98-107 lnuh=612) CO2 (BEAKER) (test 23 meq/L 22-29 uuzc=336) BLOOD UREA NITROGEN 28 mg/dL 7-21 (BEAKER) (test hnsj=040) CREATININE (BEAKER) (test 0.54 mg/dL 0.57-1.25 pwbk=547) GLUCOSE RANDOM (BEAKER) 125 mg/dL 70-105 (test rhqq=867) CALCIUM (BEAKER) (test 8.8 mg/dL 8.4-10.2 lckr=493) EGFR (BEAKER) (test 114 mL/min/1.73 sq m ESTIMATED GFR IS NOT qhew=2610) ACCURATE CREATININE CLEARANCE IN PREDICTING GLOMERULAR FILTRATION RATE. ESTIMATED GFR IS NOT APPLICABLE FOR DIALYSIS PATIENTS. POCT-GLUCOSE [id number] 06:34:00 Test Item Value Reference Range Comments POC-GLUCOSE METER (BEAKER) 123 mg/dL 70-110 : TESTED AT [address] (test niig=7877) [facility], [address]: Shield Installer/Hydraulic Lift Operator [id number] for MIESHA SHAFER POCT-GLUCOSE [id number] 00:15:00 Test Item Value Reference Range Comments POC-GLUCOSE METER (BEAKER) 109 mg/dL 70-110 : Notified RN/MD: TESTED AT (test asok=6263) [address], [address]: Shield Installer/Hydraulic Lift Operator [id number] for GAGELUBNALINDA DAVIS POCT-GLUCOSE [id number] 12:02:00 Test Item Value Reference Range Comments POC-GLUCOSE METER (BEAKER) 119 mg/dL 70-110 : TESTED AT [address] (test zlvt=4728) [facility], [address]: Shield Installer/Hydraulic Lift Operator [id number] for CHRISTIANO MYERS RAD, CHEST, 1 VIEW, NON [id number] 09:07:00Reason for exam:->leukocytosis , episode of feeling faintShould this be performed at the bedside?->YesFINAL REPORT INDICATION: leukocytosis, episode of feeling faint COMPARISON: February 06, 2019 TECHNIQUE: Single frontal view of the chest. FINDINGS: Lungs and pleura: Clear lungs. No effusion.Heart and mediastinum: Normal heart size. Unremarkable mediastinal contours.Osseous structures: No acute abnormality.Other: None. IMPRESSION: No acute intrathoracic abnormality. Signed: Willam Max Verified Date/Time: 03/06/2019 09:07:21 Reading Location: [facility] Radiology Reading Room CT , BRAIN, WITHOUT [id number] 07:01:00Verify current renal function studies, consider renal protection order set as neededFINAL REPORT CT, BRAIN, WITHOUT CONTRAST CLINICAL INDICATION: Cerebral edemaCOMPARISON: February 02, 2019, correlation to brain MRI February 10, 2019 TECHNIQUE: Noncontrast axial CT imaging of the brain and skull. DOSE REDUCTION : Dose modulation, iterative reconstruction, and/or weight-based adjustment of the mA/kV was utilized to reduce the radiation dose to as low as reasonably achievable. FINDINGS:The calvarial flap remains appropriately positioned without offset. Therehas been complete resolution of operative changes following parenchymal hematoma evacuation and meningioma resection. Right frontal encephalomalacia continues to evolve. No discernible recent infarct or hemorrhage is detected. Midline shift is nearly completely resolved. There is no abnormal extra-axial fluid. IMPRESSION: Evolving operative changes without discernible recent infarct or hemorrhage. No secondary evidence of acute edema. Signed: JR Hill Robert MDReport Verified Date/Time: 03/06/2019 07:01: 23 Reading Location: [facility] C013V Neuro Reading Room URINALYSIS W/ REFLEX URINE [id number] 02:51:00 Test Item Value Reference Range Comments COLOR (BEAKER) (test uott=332) Yellow CLARITY (BEAKER) (test ezzu=305) Clear SPECIFIC GRAVITY UA (BEAKER) (test vxwq=048) 1.024 1.001-1.035 PH UA (BEAKER) (test xnni=217) 5.5 5.0-8.0 PROTEIN UA (BEAKER) (test abqr=477) Negative Negative GLUCOSE UA (BEAKER) (test sxhv=448) Negative Negative KETONES UA (BEAKER) (test jpmk=834) Negative Negative BILIRUBIN UA (BEAKER) (test tzyg=748) Negative Negative BLOOD UA (BEAKER) (test viqe=233) Negative Negative NITRITE UA (BEAKER) (test wmjc=479) Negative Negative LEUKOCYTE ESTERASE UA (BEAKER) (test ofxa=014) Negative Negative UROBILINOGEN UA (BEAKER) (test eyeu=187) 0.2 mg/dL 0.2-1.0 RBC UA (BEAKER) (test vtbt=289) 2 /HPF WBC UA (BEAKER) (test dnjq=053) 1 /HPF MUCUS (BEAKER) (test ntzx=4525) Occasional SQUAMOUS EPITHELIAL (BEAKER) (test diii=848) 1 /HPF AMORPHOUS CRYSTALS (BEAKER) (test nwta=9898) Rare SOURCE(BEAKER) (test jvjr=7645) CBC W/PLT COUNT & AUTO [id number] 02:22:00 Test Item Value Reference Range Comments WHITE BLOOD CELL COUNT (BEAKER) (test ikch=898) 16.3 K/ L 3.5-10.5 RED BLOOD CELL COUNT (BEAKER) (test lmzp=676) 4.04 M/ L 3.93-5.22 HEMOGLOBIN (BEAKER) (test plll=758) 12.6 GM/DL 11.2-15.7 HEMATOCRIT (BEAKER) (test xtuq=817) 37.8 % 34.1-44.9 MEAN CORPUSCULAR VOLUME (BEAKER) (test smen=507) 93.6 fL 79.4-94.8 MEAN CORPUSCULAR HEMOGLOBIN (BEAKER) (test 31.2 pg 25.6-32.2 bzab=402) MEAN CORPUSCULAR HEMOGLOBIN CONC (BEAKER) (test 33.3 GM/DL 32.2-35.5 amme=364) RED CELL DISTRIBUTION WIDTH (BEAKER) (test 13.5 % 11.7-14.4 sdlm=359) PLATELET COUNT (BEAKER) (test bado=773) 356 K/CU MM 150-450 MEAN PLATELET VOLUME (BEAKER) (test fbst=916) 10.6 fL 9.4-12.3 NUCLEATED RED BLOOD CELLS (BEAKER) (test 0 /100 WBC 0-0 zebx=386) (CELLAVISION MANUAL DIFF)2019-03-06 02:22:00 Test Item Value Reference Range Comments NEUTROPHILS - REL (CELLAVISION)(BEAKER) (test 79 % gxsq=7423) LYMPHOCYTES - REL (CELLAVISION)(BEAKER) (test 12 % rpdh=9543) MONOCYTES - REL (CELLAVISION)(BEAKER) (test 5 % nfdm=6036) METAMYELOCYTES - REL (CELLAVISION)(BEAKER) (test 1 % 0-0 xlrb=3373) MYELOCYTES - REL (CELLAVISION)(BEAKER) (test 1 % 0-0 tlzl=6501) BANDS - REL (CELLAVISION)(BEAKER) (test 2 % 0-10 fymc=9178) NEUTROPHILS - ABS (CELLAVISION)(BEAKER) (test 12.88 K/ul 1.56-6.13 mxsq=2581) LYMPHOCYTES - ABS (CELLAVISION)(BEAKER) (test 1.96 K/ul 1.18-3.74 csvw=2941) MONOCYTES - ABS (CELLAVISION)(BEAKER) (test 0.82 K/uL 0.24-0.36 ccct=7166) METAMYELOCYTES - ABS (CELLAVISION)(BEAKER) (test 0.16 K/uL 0.00-0.00 quvr=2790) MYELOCYTES-ABS (CELLAVISION)(BEAKER) (test 0.16 K/uL 0.00-0.00 puzz=2740) BANDS - ABS (CELLAVISION)(BEAKER) (test 0.33 K/uL 0.00-0.80 ulag=2017) TOTAL COUNTED (BEAKER) (test njci=2474) 100 PLT MORPHOLOGY (BEAKER) (test oytz=131) Normal SMUDGE CELLS (BEAKER) (test dyco=4185) Present POLYCHROMATOPHILLIC RBCS(BEAKER) (test hqot=664) 1+ few ARTIFACT (CELLAVISION)(BEAKER) (test tmdf=7772) Present PLATELET CONCENTRATION (CELLAVISION)(BEAKER) Adequate (test yzvb=3258) Received comment: User comments: Slide comments:[id number] 00:20:00 Test Item Value Reference Range Comments PHOSPHORUS (BEAKER) (test lfav=562) 3.4 mg/dL 2.3-4.7 [id number] 00:20:00 Test Item Value Reference Range Comments MAGNESIUM (BEAKER) (test lcae=580) 2.1 mg/dL 1.6-2.6 COMPREHENSIVE METABOLIC [id number] 00:20:00 Test Item Value Reference Range Comments TOTAL PROTEIN (BEAKER) 7.2 gm/dL 6.0-8.3 (test iujs=876) ALBUMIN (BEAKER) (test 3.9 g/dL 3.5-5.0 uids=5722) ALKALINE PHOSPHATASE 86 U/L 40-150 (BEAKER) (test faaz=979) BILIRUBIN TOTAL (BEAKER) 0.2 mg/dL 0.2-1.2 (test poit=831) SODIUM (BEAKER) (test 137 meq/L 136-145 adbh=921) POTASSIUM (BEAKER) (test 4.1 meq/L 3.5-5.1 yjru=720) CHLORIDE (BEAKER) (test 105 meq/L 98-107 kcxe=707) CO2 (BEAKER) (test 22 meq/L 22-29 xups=502) BLOOD UREA NITROGEN 18 mg/dL 7-21 (BEAKER) (test bzkz=092) CREATININE (BEAKER) (test 0.59 mg/dL 0.57-1.25 izln=985) GLUCOSE RANDOM (BEAKER) 156 mg/dL 70-105 (test dkcz=110) CALCIUM (BEAKER) (test 9.1 mg/dL 8.4-10.2 hxpf=396) AST (SGOT) (BEAKER) (test 13 U/L 5-34 oqwn=922) ALT (SGPT) (BEAKER) (test 16 U/L 6-55 tmpf=252) EGFR (BEAKER) (test 103 mL/min/1.73 sq ESTIMATED GFR IS NOT xnwq=2976) m ACCURATE CREATININE CLEARANCE IN PREDICTING GLOMERULAR FILTRATION RATE. ESTIMATED GFR IS NOT APPLICABLE FOR DIALYSIS PATIENTS. [id number] 00:08:00 Test Item Value Reference Range Comments PARTIAL THROMBOPLASTIN TIME (BEAKER) (test 35.7 seconds 22.5-36.0 fmdn=185) PROTHROMBIN TIME/[id number] 00:07:00 Test Item Value Reference Range Comments PROTIME (BEAKER) (test bqhb=668) 14.7 seconds 11.9-14.2 INR (BEAKER) (test qcym=169) 1.2 <=5.9 Effective 08/10/2018: PT Reference Range ChangeNew: 11.9-14.2 Previous: 11.7- 14.7RECOMMENDED COUMADIN/WARFARIN INR THERAPY RANGESSTANDARD DOSE: 2.0-3.0 Includes: PROPHYLAXIS for venous thrombosis, systemic embolization; TREATMENT for venous thrombosis and/or pulmonary embolus.HIGH RISK: Target INR is2.5-3.5 for patients wiht mechanical heart valves.POCT-GLUCOSE [id number] 17:01:00 Test Item Value Reference Range Comments POC-GLUCOSE METER (BEAKER) 125 mg/dL 70-110 : TESTED AT [address] (test tdoc=2387) [facility], [address]: Shield Installer/Hydraulic Lift Operator [id number] for AKINSONU, JETHRO POCT-GLUCOSE [id number] 08:41:00 Test Item Value Reference Range Comments POC-GLUCOSE METER (BEAKER) 98 mg/dL 70-110 : TESTED AT [address] (test kqsz=6228) [facility], [address]: Shield Installer/Hydraulic Lift Operator [id number] for AKINSONU, JETHRO [id number] 06:23:00 Test Item Value Reference Range Comments MAGNESIUM (BEAKER) (test ubwx=145) 2.1 mg/dL 1.6-2.6 BASIC METABOLIC [id number] 06:23:00 Test Item Value Reference Range Comments SODIUM (BEAKER) (test 138 meq/L 136-145 enda=635) POTASSIUM (BEAKER) (test 4.0 meq/L 3.5-5.1 gfdn=474) CHLORIDE (BEAKER) (test 106 meq/L 98-107 rxrb=792) CO2 (BEAKER) (test 26 meq/L 22-29 srgg=672) BLOOD UREA NITROGEN 14 mg/dL 7-21 (BEAKER) (test zgjk=409) CREATININE (BEAKER) (test 0.47 mg/dL 0.57-1.25 vnxm=553) GLUCOSE RANDOM (BEAKER) 116 mg/dL 70-105 (test fasz=053) CALCIUM (BEAKER) (test 8.3 mg/dL 8.4-10.2 atuq=075) EGFR (BEAKER) (test 133 mL/min/1.73 sq m ESTIMATED GFR IS NOT hebf=5345) ACCURATE CREATININE CLEARANCE IN PREDICTING GLOMERULAR FILTRATION RATE. ESTIMATED GFR IS NOT APPLICABLE FOR DIALYSIS PATIENTS. CALCIUM, [id number] 05:55:00 Test Item Value Reference Range Comments CALCIUM IONIZED (BEAKER) (test dhdr=530) 1.07 mmol/L 1.12-1.27 PH, BLOOD (BEAKER) (test tyhk=4420) 7.42 CBC (HEMOGRAM ONLY)2019-02-15 05:53:00 Test Item Value Reference Range Comments WHITE BLOOD CELL COUNT (BEAKER) (test iolk=555) 11.0 K/ L 3.5-10.5 RED BLOOD CELL COUNT (BEAKER) (test lmce=158) 3.14 M/ L 3.93-5.22 HEMOGLOBIN (BEAKER) (test qmta=406) 9.9 GM/DL 11.2-15.7 HEMATOCRIT (BEAKER) (test hlvc=249) 30.6 % 34.1-44.9 MEAN CORPUSCULAR VOLUME (BEAKER) (test bsbi=513) 97.5 fL 79.4-94.8 MEAN CORPUSCULAR HEMOGLOBIN (BEAKER) (test 31.5 pg 25.6-32.2 wkns=881) MEAN CORPUSCULAR HEMOGLOBIN CONC (BEAKER) (test 32.4 GM/DL 32.2-35.5 fbow=896) RED CELL DISTRIBUTION WIDTH (BEAKER) (test 14.8 % 11.7-14.4 bips=002) PLATELET COUNT (BEAKER) (test kjmu=172) 219 K/CU MM 150-450 MEAN PLATELET VOLUME (BEAKER) (test pfju=181) 10.9 fL 9.4-12.3 NUCLEATED RED BLOOD CELLS (BEAKER) (test 0 /100 WBC 0-0 svan=764) POCT-GLUCOSE [id number] 21:12:00 Test Item Value Reference Range Comments POC-GLUCOSE METER (BEAKER) 131 mg/dL 70-110 : TESTED AT [address] (test zjfu=7938) [facility], [address]: Shield Installer/Hydraulic Lift Operator [id number] for Sue Wade POCT-GLUCOSE [id number] 17:21:00 Test Item Value Reference Range Comments POC-GLUCOSE METER (BEAKER) 130 mg/dL 70-110 : TESTED AT [address] (test pkrh=2901) [facility], [address]: Shield Installer/Hydraulic Lift Operator [id number] for Hannah Navarrete POCT-GLUCOSE [id number] 11:56:00 Test Item Value Reference Range Comments POC-GLUCOSE METER (BEAKER) 105 mg/dL 70-110 : TESTED AT [address] (test uimb=9586) [facility], [address]: Shield Installer/Hydraulic Lift Operator [id number] for Hannah Navarrete POCT-GLUCOSE [id number] 08:11:00 Test Item Value Reference Range Comments POC-GLUCOSE METER (BEAKER) 221 mg/dL 70-110 : TESTED AT [address] (test zwce=8729) [facility], [address]: Shield Installer/Hydraulic Lift Operator [id number] for Hannah Navarrete [id number] 04:39:00 Test Item Value Reference Range Comments MAGNESIUM (BEAKER) (test bumr=530) 1.9 mg/dL 1.6-2.6 BASIC METABOLIC [id number] 04:39:00 Test Item Value Reference Range Comments SODIUM (BEAKER) (test 138 meq/L 136-145 cvfy=126) POTASSIUM (BEAKER) (test 3.8 meq/L 3.5-5.1 utis=608) CHLORIDE (BEAKER) (test 106 meq/L 98-107 fire=984) CO2 (BEAKER) (test 26 meq/L 22-29 jico=164) BLOOD UREA NITROGEN 20 mg/dL 7-21 (BEAKER) (test aaul=021) CREATININE (BEAKER) (test 0.46 mg/dL 0.57-1.25 sdlx=555) GLUCOSE RANDOM (BEAKER) 120 mg/dL 70-105 (test cxxl=288) CALCIUM (BEAKER) (test 8.0 mg/dL 8.4-10.2 atda=223) EGFR (BEAKER) (test 137 mL/min/1.73 sq m ESTIMATED GFR IS NOT ueji=4771) ACCURATE CREATININE CLEARANCE IN PREDICTING GLOMERULAR FILTRATION RATE. ESTIMATED GFR IS NOT APPLICABLE FOR DIALYSIS PATIENTS. CBC (HEMOGRAM ONLY)2019-02-14 04:13:00 Test Item Value Reference Range Comments WHITE BLOOD CELL COUNT (BEAKER) (test aink=096) 12.9 K/ L 3.5-10.5 RED BLOOD CELL COUNT (BEAKER) (test ugrs=770) 2.91 M/ L 3.93-5.22 HEMOGLOBIN (BEAKER) (test aiqj=711) 9.1 GM/DL 11.2-15.7 HEMATOCRIT (BEAKER) (test qvwd=595) 28.4 % 34.1-44.9 MEAN CORPUSCULAR VOLUME (BEAKER) (test mgbc=246) 97.6 fL 79.4-94.8 MEAN CORPUSCULAR HEMOGLOBIN (BEAKER) (test 31.3 pg 25.6-32.2 fxss=245) MEAN CORPUSCULAR HEMOGLOBIN CONC (BEAKER) (test 32.0 GM/DL 32.2-35.5 wtsl=786) RED CELL DISTRIBUTION WIDTH (BEAKER) (test 15.0 % 11.7-14.4 eami=646) PLATELET COUNT (BEAKER) (test ovog=545) 214 K/CU MM 150-450 MEAN PLATELET VOLUME (BEAKER) (test blzg=435) 11.3 fL 9.4-12.3 NUCLEATED RED BLOOD CELLS (BEAKER) (test 0 /100 WBC 0-0 ffci=232) CALCIUM, [id number] 04:00:00 Test Item Value Reference Range Comments CALCIUM IONIZED (BEAKER) (test ouxt=634) 1.06 mmol/L 1.12-1.27 PH, BLOOD (BEAKER) (test oukb=0189) 7.44 POCT-GLUCOSE [id number] 21:25:00 Test Item Value Reference Range Comments POC-GLUCOSE METER (BEAKER) 131 mg/dL 70-110 : TESTED AT [facility] [address] (test ikqb=5714) [facility], [address]: Shield Installer/Hydraulic Lift Operator [id number] for Sue Wade POCT-GLUCOSE [id number] 12:20:00 Test Item Value Reference Range Comments POC-GLUCOSE METER (BEAKER) 102 mg/dL 70-110 : TESTED AT [facility] [address] (test teiz=4542) [facility], [address]: Shield Installer/Hydraulic Lift Operator [id number] for Hannah Navarrete BASIC METABOLIC [id number] 08:41:00 Test Item Value Reference Range Comments SODIUM (BEAKER) (test 137 meq/L 136-145 ynpc=146) POTASSIUM (BEAKER) (test 3.7 meq/L 3.5-5.1 ojea=479) CHLORIDE (BEAKER) (test 107 meq/L 98-107 otdt=646) CO2 (BEAKER) (test 25 meq/L 22-29 pjnn=297) BLOOD UREA NITROGEN 21 mg/dL 7-21 (BEAKER) (test hvts=336) CREATININE (BEAKER) (test 0.49 mg/dL 0.57-1.25 edrs=940) GLUCOSE RANDOM (BEAKER) 129 mg/dL 70-105 (test xhoh=754) CALCIUM (BEAKER) (test 7.9 mg/dL 8.4-10.2 utqu=246) EGFR (BEAKER) (test 127 mL/min/1.73 sq m ESTIMATED GFR IS NOT swgf=0825) ACCURATE CREATININE CLEARANCE IN PREDICTING GLOMERULAR FILTRATION RATE. ESTIMATED GFR IS NOT APPLICABLE FOR DIALYSIS PATIENTS. [id number] 08:18:00 Test Item Value Reference Range Comments MAGNESIUM (BEAKER) (test lbbg=838) 1.9 mg/dL 1.6-2.6 CALCIUM, [id number] 06:46:00 Test Item Value Reference Range Comments CALCIUM IONIZED (BEAKER) (test jgjc=232) 1.09 mmol/L 1.12-1.27 PH, BLOOD (BEAKER) (test obxy=0930) 7.41 CBC (HEMOGRAM ONLY)2019-02-13 06:27:00 Test Item Value Reference Range Comments WHITE BLOOD CELL COUNT (BEAKER) (test wcxh=979) 17.3 K/ L 3.5-10.5 RED BLOOD CELL COUNT (BEAKER) (test tarh=256) 3.30 M/ L 3.93-5.22 HEMOGLOBIN (BEAKER) (test iwph=687) 10.2 GM/DL 11.2-15.7 HEMATOCRIT (BEAKER) (test ylcc=246) 32.0 % 34.1-44.9 MEAN CORPUSCULAR VOLUME (BEAKER) (test hudb=633) 97.0 fL 79.4-94.8 MEAN CORPUSCULAR HEMOGLOBIN (BEAKER) (test 30.9 pg 25.6-32.2 bwyk=390) MEAN CORPUSCULAR HEMOGLOBIN CONC (BEAKER) (test 31.9 GM/DL 32.2-35.5 gkbv=852) RED CELL DISTRIBUTION WIDTH (BEAKER) (test 15.0 % 11.7-14.4 bxyw=696) PLATELET COUNT (BEAKER) (test wnqi=034) 266 K/CU MM 150-450 MEAN PLATELET VOLUME (BEAKER) (test qxcf=740) 11.0 fL 9.4-12.3 NUCLEATED RED BLOOD CELLS (BEAKER) (test 0 /100 WBC 0-0 yzsw=689) POCT-GLUCOSE [id number] 21:15:00 Test Item Value Reference Range Comments POC-GLUCOSE METER (BEAKER) 189 mg/dL 70-110 : TESTED AT [address] (test hwyf=9461) [facility], [address]: Shield Installer/Hydraulic Lift Operator [id number] for Mauro Sue POCT-GLUCOSE [id number] 17:30:00 Test Item Value Reference Range Comments POC-GLUCOSE METER (BEAKER) 131 mg/dL 70-110 : TESTED AT [address] (test jmzx=8582) [facility], [address]: Shield Installer/Hydraulic Lift Operator [id number] for RICHTER, YVES POCT-GLUCOSE [id number] 11:33:00 Test Item Value Reference Range Comments POC-GLUCOSE METER (BEAKER) 149 mg/dL 70-110 : TESTED AT [address] (test pdzj=1378) [facility], [address]: Shield Installer/Hydraulic Lift Operator [id number] for RICHTER, YVES POCT-GLUCOSE [id number] 09:11:00 Test Item Value Reference Range Comments POC-GLUCOSE METER (BEAKER) 91 mg/dL 70-110 : TESTED AT [address] (test phgt=5463) [facility], [address]: Shield Installer/Hydraulic Lift Operator [id number] for YVES RICHTER BASIC METABOLIC [id number] 06:32:00 Test Item Value Reference Range Comments SODIUM (BEAKER) (test 136 meq/L 136-145 wnlz=797) POTASSIUM (BEAKER) (test 3.7 meq/L 3.5-5.1 nvrf=785) CHLORIDE (BEAKER) (test 106 meq/L 98-107 squl=504) CO2 (BEAKER) (test 24 meq/L 22-29 semb=887) BLOOD UREA NITROGEN 19 mg/dL 7-21 (BEAKER) (test dawi=443) CREATININE (BEAKER) (test 0.44 mg/dL 0.57-1.25 ecia=464) GLUCOSE RANDOM (BEAKER) 125 mg/dL 70-105 (test xpgg=391) CALCIUM (BEAKER) (test 7.5 mg/dL 8.4-10.2 bedj=011) EGFR (BEAKER) (test 144 mL/min/1.73 sq m ESTIMATED GFR IS NOT jppb=0296) ACCURATE CREATININE CLEARANCE IN PREDICTING GLOMERULAR FILTRATION RATE. ESTIMATED GFR IS NOT APPLICABLE FOR DIALYSIS PATIENTS. [id number] 06:21:00 Test Item Value Reference Range Comments MAGNESIUM (BEAKER) (test vmbb=676) 1.9 mg/dL 1.6-2.6 CBC (HEMOGRAM ONLY)2019-02-12 05:39:00 Test Item Value Reference Range Comments WHITE BLOOD CELL COUNT (BEAKER) (test sawv=422) 19.2 K/ L 3.5-10.5 RED BLOOD CELL COUNT (BEAKER) (test mlcd=936) 2.92 M/ L 3.93-5.22 HEMOGLOBIN (BEAKER) (test redj=034) 9.3 GM/DL 11.2-15.7 HEMATOCRIT (BEAKER) (test rlyg=050) 28.1 % 34.1-44.9 MEAN CORPUSCULAR VOLUME (BEAKER) (test njzn=351) 96.2 fL 79.4-94.8 MEAN CORPUSCULAR HEMOGLOBIN (BEAKER) (test 31.8 pg 25.6-32.2 jhlz=353) MEAN CORPUSCULAR HEMOGLOBIN CONC (BEAKER) (test 33.1 GM/DL 32.2-35.5 oamx=319) RED CELL DISTRIBUTION WIDTH (BEAKER) (test 14.5 % 11.7-14.4 ljye=375) PLATELET COUNT (BEAKER) (test cped=102) 238 K/CU MM 150-450 MEAN PLATELET VOLUME (BEAKER) (test eimn=751) 11.4 fL 9.4-12.3 NUCLEATED RED BLOOD CELLS (BEAKER) (test 0 /100 WBC 0-0 cwzp=602) CALCIUM, [id number] 04:52:00 Test Item Value Reference Range Comments CALCIUM IONIZED (BEAKER) (test qkbf=328) 1.06 mmol/L 1.12-1.27 PH, BLOOD (BEAKER) (test scfv=1750) 7.43 POCT-GLUCOSE [id number] 21:21:00 Test Item Value Reference Range Comments POC-GLUCOSE METER (BEAKER) 159 mg/dL 70-110 : TESTED AT [address] (test wsff=3685) [facility], [address]: Shield Installer/Hydraulic Lift Operator [id number] for MELANY MONTANO POCT-GLUCOSE [id number] 17:28:00 Test Item Value Reference Range Comments POC-GLUCOSE METER (BEAKER) 130 mg/dL 70-110 : Notified RN/MD: TESTED AT (test ockc=4891) [address], [address]: Shield Installer/Hydraulic Lift Operator [id number] for ROBER, YVES POCT-GLUCOSE [id number] 12:21:00 Test Item Value Reference Range Comments POC-GLUCOSE METER (BEAKER) 111 mg/dL 70-110 : TESTED AT [address] (test uzdm=7398) [facility], [address]: Shield Installer/Hydraulic Lift Operator [id number] for RICHTER, YVES BLOOD [id number] 11:00:00 Test Item Value Reference Range Comments CULTURE (BEAKER) (test jixu=4686) No growth in 5 days BLOOD [id number] 11:00:00 Test Item Value Reference Range Comments CULTURE (BEAKER) (test ulyt=0743) No growth in 5 days POCT-GLUCOSE [id number] 07:53:00 Test Item Value Reference Range Comments POC-GLUCOSE METER (BEAKER) 99 mg/dL 70-110 : TESTED AT [facility] [address] (test hpmb=8905) [place], [address]: Shield Installer/Hydraulic Lift Operator [id number] for YVES RICHTER [id number] 06:55:00 Test Item Value Reference Range Comments MAGNESIUM (BEAKER) (test wlci=593) 1.8 mg/dL 1.6-2.6 BASIC METABOLIC [id number] 06:55:00 Test Item Value Reference Range Comments SODIUM (BEAKER) (test 135 meq/L 136-145 smzt=530) POTASSIUM (BEAKER) (test 3.7 meq/L 3.5-5.1 dzfk=717) CHLORIDE (BEAKER) (test 104 meq/L 98-107 ufok=418) CO2 (BEAKER) (test 25 meq/L 22-29 eltz=660) BLOOD UREA NITROGEN 22 mg/dL 7-21 (BEAKER) (test fpfz=006) CREATININE (BEAKER) (test 0.47 mg/dL 0.57-1.25 djzv=795) GLUCOSE RANDOM (BEAKER) 111 mg/dL 70-105 (test urny=646) CALCIUM (BEAKER) (test 7.5 mg/dL 8.4-10.2 hgnw=672) EGFR (BEAKER) (test 133 mL/min/1.73 sq m ESTIMATED GFR IS NOT wyhv=2629) ACCURATE CREATININE CLEARANCE IN PREDICTING GLOMERULAR FILTRATION RATE. ESTIMATED GFR IS NOT APPLICABLE FOR DIALYSIS PATIENTS. CALCIUM, [id number] 06:34:00 Test Item Value Reference Range Comments CALCIUM IONIZED (BEAKER) (test gthw=564) 1.03 mmol/L 1.12-1.27 PH, BLOOD (BEAKER) (test yrrt=4009) 7.46 CBC (HEMOGRAM ONLY)2019-02-11 06:24:00 Test Item Value Reference Range Comments WHITE BLOOD CELL COUNT (BEAKER) (test xfkn=890) 23.5 K/ L 3.5-10.5 RED BLOOD CELL COUNT (BEAKER) (test smyi=428) 3.16 M/ L 3.93-5.22 HEMOGLOBIN (BEAKER) (test gshh=605) 9.8 GM/DL 11.2-15.7 HEMATOCRIT (BEAKER) (test iyhh=971) 29.9 % 34.1-44.9 MEAN CORPUSCULAR VOLUME (BEAKER) (test ijbq=381) 94.6 fL 79.4-94.8 MEAN CORPUSCULAR HEMOGLOBIN (BEAKER) (test 31.0 pg 25.6-32.2 rlre=826) MEAN CORPUSCULAR HEMOGLOBIN CONC (BEAKER) (test 32.8 GM/DL 32.2-35.5 rveu=673) RED CELL DISTRIBUTION WIDTH (BEAKER) (test 14.5 % 11.7-14.4 fylw=890) PLATELET COUNT (BEAKER) (test gomp=314) 243 K/CU MM 150-450 MEAN PLATELET VOLUME (BEAKER) (test miit=788) 11.1 fL 9.4-12.3 NUCLEATED RED BLOOD CELLS (BEAKER) (test 0 /100 WBC 0-0 uvng=902) POCT-GLUCOSE [id number] 23:13:00 Test Item Value Reference Range Comments POC-GLUCOSE METER (BEAKER) 200 mg/dL 70-110 : TESTED AT [address] (test yxan=5556) [facility], [address]: Shield Installer/Hydraulic Lift Operator [id number] for JEFERSON ÁLVAREZ MR, SPINE, CERVICAL, [id number] 20:53:00Anesthesia:->NoneDeos the patient have an implanted electronic [...] of the cervical spine. Signed: Nusrat Castillo Verified Date/Time: 02/10/2019 20:53:35 MR, MRA, BRAIN, WITHOUT [id number] 20:50:00Reason for exam:->Ischemic Stroke EvaluationFINAL REPORT MR, BRAIN, WITHOUT CONTRAST, MR, MRA, BRAIN, WITHOUT CONTRAST, MR , MRA, NECK, WITHOUT IV CONTRAST INDICATION: Brain mass or lesion, follow- upIschemic Stroke Evaluation TECHNIQUE: Multiplanar, multisequence MR imaging of the brain without intravenous contrast.MRA of the head utilizing 3-D time-of- flight technique, with 3-D reconstructions.MRA of the neck utilizing 2-D and 3- D vmnb-bs-eqpkva technique, with 3-D reconstructions. COMPARISON: MRI brain [...] of the head and neck. Signed: Nusrat Castilloeport Verified Date/Time: 02/10/2019 20:50:20 MR, MRA, NECK, WITHOUT IV [id number] 20:50:00Reason for exam:->Ischemic Stroke EvaluationFINAL REPORT MR, BRAIN, WITHOUT CONTRAST, MR, MRA, BRAIN, WITHOUT CONTRAST, MR, MRA, NECK, WITHOUT IV CONTRAST INDICATION: Brain mass or lesion, follow-upIschemic Stroke Evaluation TECHNIQUE: Multiplanar, multisequence MR imaging of the brain without intravenous contrast.MRA of the head utilizing 3-D zihm-eu-xeqgpg technique, with 3-D reconstructions.MRA of the neck [...] of the head and neck. Signed: Nusrat Castilloeport Verified Date/Time: 02/10/2019 20:50:20 MR, BRAIN, WITHOUT [id number] 20:50:00Reason for exam :->Ischemic Stroke EvaluationFINAL REPORT MR, BRAIN, WITHOUT CONTRAST, MR, MRA, BRAIN, WITHOUT CONTRAST, MR, MRA, NECK, WITHOUT IV CONTRAST INDICATION: Brain mass or lesion, follow-upIschemic Stroke Evaluation TECHNIQUE: Multiplanar, multisequence MR imaging of the brain without intravenous contrast.MRA of the head utilizing 3-D efqx-rj-qkinhr technique, with 3-D reconstructions.MRA of the neck utilizing 2-D and 3-D wjoh-uk-sjtfzt technique, with 3-D reconstructions. COMPARISON: MRI brain [...] MRA of the head and neck. Signed: Meservy, Nusrat MDReport Verified Date/Time: 02/10/2019 20:50:20 POCT-GLUCOSE [id number] 08:09:00 Test Item Value Reference Range Comments POC-GLUCOSE METER (BEAKER) 123 mg/dL 70-110 : [facility] [address] [facility] (test rhkt=9972) [facility], [address]: Shield Installer/Hydraulic Lift Operator [id number] for MARQUEZ HAYDEN CALCIUM, [id number] 06:38:00 Test Item Value Reference Range Comments CALCIUM IONIZED (BEAKER) (test wsgk=218) 1.01 mmol/L 1.12-1.27 PH, BLOOD (BEAKER) (test rnwd=8674) 7.53 [id number] 06:37:00 Test Item Value Reference Range Comments MAGNESIUM (BEAKER) (test eizq=553) 1.9 mg/dL 1.6-2.6 BASIC METABOLIC [id number] 06:37:00 Test Item Value Reference Range Comments SODIUM (BEAKER) (test 133 meq/L 136-145 hzui=703) POTASSIUM (BEAKER) (test 4.1 meq/L 3.5-5.1 xury=325) CHLORIDE (BEAKER) (test 105 meq/L 98-107 ygtw=238) CO2 (BEAKER) (test 22 meq/L 22-29 glgz=613) BLOOD UREA NITROGEN 22 mg/dL 7-21 (BEAKER) (test jgwr=984) CREATININE (BEAKER) (test 0.47 mg/dL 0.57-1.25 tbal=240) GLUCOSE RANDOM (BEAKER) 144 mg/dL 70-105 (test fdqc=818) CALCIUM (BEAKER) (test 7.6 mg/dL 8.4-10.2 qwza=905) EGFR (BEAKER) (test 133 mL/min/1.73 sq m ESTIMATED GFR IS NOT dnae=1166) ACCURATE CREATININE CLEARANCE IN PREDICTING GLOMERULAR FILTRATION RATE. ESTIMATED GFR IS NOT APPLICABLE FOR DIALYSIS PATIENTS. CBC (HEMOGRAM ONLY)2019-02-10 05:45:00 Test Item Value Reference Range Comments WHITE BLOOD CELL COUNT (BEAKER) (test vxdm=329) 25.2 K/ L 3.5-10.5 RED BLOOD CELL COUNT (BEAKER) (test yhuz=838) 3.27 M/ L 3.93-5.22 HEMOGLOBIN (BEAKER) (test dwsv=020) 10.2 GM/DL 11.2-15.7 HEMATOCRIT (BEAKER) (test psjl=456) 30.9 % 34.1-44.9 MEAN CORPUSCULAR VOLUME (BEAKER) (test hoyj=915) 94.5 fL 79.4-94.8 MEAN CORPUSCULAR HEMOGLOBIN (BEAKER) (test 31.2 pg 25.6-32.2 vdph=720) MEAN CORPUSCULAR HEMOGLOBIN CONC (BEAKER) (test 33.0 GM/DL 32.2-35.5 djct=003) RED CELL DISTRIBUTION WIDTH (BEAKER) (test 14.2 % 11.7-14.4 zdzl=628) PLATELET COUNT (BEAKER) (test ztvd=077) 233 K/CU MM 150-450 MEAN PLATELET VOLUME (BEAKER) (test pntn=907) 11.5 fL 9.4-12.3 NUCLEATED RED BLOOD CELLS (BEAKER) (test 0 /100 WBC 0-0 htex=907) POCT-GLUCOSE [id number] 21:31:00 Test Item Value Reference Range Comments POC-GLUCOSE METER (BEAKER) 183 mg/dL 70-110 : TESTED AT [address] (test cvrf=0248) [facility], [address]: Shield Installer/Hydraulic Lift Operator FV=[id number] for Sue Wade POCT-GLUCOSE [id number] 17:36:00 Test Item Value Reference Range Comments POC-GLUCOSE METER (BEAKER) 153 mg/dL 70-110 : TESTED AT [address] (test zpyd=7019) [facility], [address]: Shield Installer/Hydraulic Lift Operator [id number] for GASKEY, WILLAM POCT-GLUCOSE [id number] 13:27:00 Test Item Value Reference Range Comments POC-GLUCOSE METER (BEAKER) 155 mg/dL 70-110 : TESTED AT [address] (test tyxl=8729) [facility], [address]: Shield Installer/Hydraulic Lift Operator [id number] for GASKEY, WILLAM POCT-GLUCOSE [id number] 11:27:00 Test Item Value Reference Range Comments POC-GLUCOSE METER (BEAKER) 152 mg/dL 70-110 : TESTED AT [facility] [address] (test tpwy=0862) [facility], [address]: Shield Installer/Hydraulic Lift Operator [id number] for ALEXANDRA ANAND POCT-GLUCOSE [id number] 07:39:00 Test Item Value Reference Range Comments POC-GLUCOSE METER (BEAKER) 140 mg/dL 70-110 : TESTED AT [facility] [address] (test uxea=2471) [facility], [address]: Shield Installer/Hydraulic Lift Operator GW=[id number] for ALEXANDRA ANAND CALCIUM, [id number] 05:27:00 Test Item Value Reference Range Comments CALCIUM IONIZED (BEAKER) (test egyn=817) 1.03 mmol/L 1.12-1.27 PH, BLOOD (BEAKER) (test bmqf=9276) 7.50 BASIC METABOLIC [id number] 04:58:00 Test Item Value Reference Range Comments SODIUM (BEAKER) (test 133 meq/L 136-145 vucu=480) POTASSIUM (BEAKER) (test 4.1 meq/L 3.5-5.1 mbba=112) CHLORIDE (BEAKER) (test 106 meq/L 98-107 xlel=365) CO2 (BEAKER) (test 23 meq/L 22-29 gseg=396) BLOOD UREA NITROGEN 25 mg/dL 7-21 (BEAKER) (test pppb=489) CREATININE (BEAKER) (test 0.49 mg/dL 0.57-1.25 zbxm=398) GLUCOSE RANDOM (BEAKER) 164 mg/dL 70-105 (test kcgz=108) CALCIUM (BEAKER) (test 7.3 mg/dL 8.4-10.2 xlgv=899) EGFR (BEAKER) (test 127 mL/min/1.73 sq m ESTIMATED GFR IS NOT vwfy=5759) ACCURATE CREATININE CLEARANCE IN PREDICTING GLOMERULAR FILTRATION RATE. ESTIMATED GFR IS NOT APPLICABLE FOR DIALYSIS PATIENTS. [id number] 04:53:00 Test Item Value Reference Range Comments MAGNESIUM (BEAKER) (test bhmf=182) 1.9 mg/dL 1.6-2.6 CBC (HEMOGRAM ONLY)2019-02-09 04:14:00 Test Item Value Reference Range Comments WHITE BLOOD CELL COUNT (BEAKER) (test fenm=139) 25.9 K/ L 3.5-10.5 RED BLOOD CELL COUNT (BEAKER) (test bejf=558) 2.85 M/ L 3.93-5.22 HEMOGLOBIN (BEAKER) (test paim=526) 8.9 GM/DL 11.2-15.7 HEMATOCRIT (BEAKER) (test lfup=560) 26.7 % 34.1-44.9 MEAN CORPUSCULAR VOLUME (BEAKER) (test fupy=961) 93.7 fL 79.4-94.8 MEAN CORPUSCULAR HEMOGLOBIN (BEAKER) (test 31.2 pg 25.6-32.2 xojf=468) MEAN CORPUSCULAR HEMOGLOBIN CONC (BEAKER) (test 33.3 GM/DL 32.2-35.5 cosy=654) RED CELL DISTRIBUTION WIDTH (BEAKER) (test 13.9 % 11.7-14.4 ufoa=934) PLATELET COUNT (BEAKER) (test mjqx=699) 214 K/CU MM 150-450 MEAN PLATELET VOLUME (BEAKER) (test cyzn=701) 11.6 fL 9.4-12.3 NUCLEATED RED BLOOD CELLS (BEAKER) (test 0 /100 WBC 0-0 xgya=299) HEPATIC FUNCTION [id number] 19:08:00 Test Item Value Reference Range Comments TOTAL PROTEIN (BEAKER) (test netb=672) 5.8 gm/dL 6.0-8.3 ALBUMIN (BEAKER) (test jqsj=2732) 3.2 g/dL 3.5-5.0 BILIRUBIN TOTAL (BEAKER) (test kywt=356) 0.3 mg/dL 0.2-1.2 BILIRUBIN DIRECT (BEAKER) (test oyok=892) 0.2 mg/dL 0.1-0.5 ALKALINE PHOSPHATASE (BEAKER) (test zmte=494) 50 U/L 40-150 AST (SGOT) (BEAKER) (test pnot=936) 39 U/L 5-34 ALT (SGPT) (BEAKER) (test nozm=035) 97 U/L 6-55 [id number] 17:55:00 Test Item Value Reference Range Comments SODIUM (BEAKER) (test xbyi=418) 135 meq/L 136-145 POCT-GLUCOSE [id number] 17:35:00 Test Item Value Reference Range Comments POC-GLUCOSE METER (BEAKER) 143 mg/dL 70-110 : TESTED AT [address] (test tzgh=6779) [facility], [address]: Shield Installer/Hydraulic Lift Operator [id number]=[id number] for TRIPP BALLESTEROS POCT-GLUCOSE [id number] 15:02:00 Test Item Value Reference Range Comments POC-GLUCOSE METER (BEAKER) 162 mg/dL 70-110 : TESTED AT [address] (test lkud=6933) [facility], [address]: Shield Installer/Hydraulic Lift Operator [id number]=[id number] for Hannah Navarrete POCT-GLUCOSE [id number] 14:40:00 Test Item Value Reference Range Comments POC-GLUCOSE METER (BEAKER) 188 mg/dL 70-110 : TESTED AT [address] (test fdrn=1343) [facility], [address]: Shield Installer/Hydraulic Lift Operator [id number] for TRIPP BALLESTEROS POCT-GLUCOSE [id number] 14:30:00 Test Item Value Reference Range Comments POC-GLUCOSE METER (BEAKER) 138 mg/dL 70-110 : TESTED AT [address] (test lxqf=9905) [facility], [address]: Shield Installer/Hydraulic Lift Operator OD=[id number] for Yesy Wadea POCT-GLUCOSE [id number] 14:26:00 Test Item Value Reference Range Comments POC-GLUCOSE METER (BEAKER) 204 mg/dL 70-110 : TESTED AT [address] (test hzuo=4125) [facility], [address]: Shield Installer/Hydraulic Lift Operator FX=[id number] for Yesy Wadea VANCOMYCIN LEVEL, [id number] 11:03:00 Test Item Value Reference Range Comments VANCOMYCIN TROUGH (BEAKER) (test rton=502) 4.6 ug/mL 10.0-20.0 30 minutes prior to next [id number] 10:58:00 Test Item Value Reference Range Comments SODIUM (BEAKER) (test zsdl=812) 131 meq/L 136-145 BASIC METABOLIC [id number] 06:01:00 Test Item Value Reference Range Comments SODIUM (BEAKER) (test 131 meq/L 136-145 ppbe=340) POTASSIUM (BEAKER) (test 4.2 meq/L 3.5-5.1 nibo=462) CHLORIDE (BEAKER) (test 101 meq/L 98-107 rbuc=451) CO2 (BEAKER) (test 26 meq/L 22-29 xlsz=962) BLOOD UREA NITROGEN 20 mg/dL 7-21 (BEAKER) (test lrpz=136) CREATININE (BEAKER) (test 0.45 mg/dL 0.57-1.25 vnod=065) GLUCOSE RANDOM (BEAKER) 154 mg/dL 70-105 (test rmvk=692) CALCIUM (BEAKER) (test 7.8 mg/dL 8.4-10.2 fxos=872) EGFR (BEAKER) (test 140 mL/min/1.73 sq m ESTIMATED GFR IS NOT ocno=3522) ACCURATE CREATININE CLEARANCE IN PREDICTING GLOMERULAR FILTRATION RATE. ESTIMATED GFR IS NOT APPLICABLE FOR DIALYSIS PATIENTS. [id number] 05:37:00 Test Item Value Reference Range Comments MAGNESIUM (BEAKER) (test ccwn=107) 1.9 mg/dL 1.6-2.6 CALCIUM, [id number] 05:27:00 Test Item Value Reference Range Comments CALCIUM IONIZED (BEAKER) (test qytp=391) 1.04 mmol/L 1.12-1.27 PH, BLOOD (BEAKER) (test vibl=7611) 7.54 CBC (HEMOGRAM ONLY)2019-02-08 05:12:00 Test Item Value Reference Range Comments WHITE BLOOD CELL COUNT (BEAKER) (test ibhy=662) 30.5 K/ L 3.5-10.5 RED BLOOD CELL COUNT (BEAKER) (test itiy=538) 2.95 M/ L 3.93-5.22 HEMOGLOBIN (BEAKER) (test tgeu=869) 9.3 GM/DL 11.2-15.7 HEMATOCRIT (BEAKER) (test wmrm=875) 27.1 % 34.1-44.9 MEAN CORPUSCULAR VOLUME (BEAKER) (test eoyj=581) 91.9 fL 79.4-94.8 MEAN CORPUSCULAR HEMOGLOBIN (BEAKER) (test 31.5 pg 25.6-32.2 lzxu=176) MEAN CORPUSCULAR HEMOGLOBIN CONC (BEAKER) (test 34.3 GM/DL 32.2-35.5 muhg=995) RED CELL DISTRIBUTION WIDTH (BEAKER) (test 13.5 % 11.7-14.4 nrpd=750) PLATELET COUNT (BEAKER) (test olok=304) 231 K/CU MM 150-450 MEAN PLATELET VOLUME (BEAKER) (test cjkj=327) 11.5 fL 9.4-12.3 NUCLEATED RED BLOOD CELLS (BEAKER) (test 0 /100 WBC 0-0 sudv=629) (MANUAL DIFFERENTIAL)2019-02-07 11:38:00 Test Item Value Reference Range Comments NEUTROPHILS - REL (DIFF) (BEAKER) (test 83 % zqbf=6708) LYMPHOCYTES - REL (DIFF) (BEAKER) (test 8 % xzqn=4920) MONOCYTES - REL (DIFF) (BEAKER) (test grbg=6797) 6 % MYELOCYTES-REL (DIFF) (BEAKER) (test bvmo=1229) 2 % 0-0 BANDS - REL (DIFF) (BEAKER) (test jnhn=1488) 1 % 0-10 NEUTROPHILS - ABS (DIFF) (BEAKER) (test 29.96 K/ L 1.80-8.00 mnsz=4459) LYMPHOCYTES - ABS (DIFF) (BEAKER) (test 2.89 K/ L 1.48-4.50 bvym=1029) MONOCYTES - ABS (DIFF) (BEAKER) (test qhop=7041) 2.17 K/ L 0.00-1.30 BANDS-ABS (DIFF) (BEAKER) (test eagp=5123) 0.4 K/ L 0.0-0.8 MYELOCYTES-ABS (DIFF) (BEAKER) (test kpqj=5474) 0.72 K/ L 0.00-0.00 TOTAL COUNTED (BEAKER) (test cqol=3526) 100 BANDS + SEGMENTED NEUTROPHILS (BEAKER) (test 30.32 hiaa=2622) WBC MORPHOLOGY (BEAKER) (test iajr=806) Normal PLT MORPHOLOGY (BEAKER) (test tahd=946) Normal RBC MORPHOLOGY (BEAKER) (test ltlo=213) Normal PERIPHERAL BLOOD SMEAR - HOLD [id number] 11:35:00 Test Item Value Reference Range Comments PERIPHERAL SMEAR SAVE (BEAKER) (test xfuh=3297) SAVED POCT-GLUCOSE [id number] 11:31:00 Test Item Value Reference Range Comments POC-GLUCOSE METER (BEAKER) 170 mg/dL 70-110 : TESTED AT [facility] [address] (test mkkx=4939) [facility], [address]: Shield Installer/Hydraulic Lift Operator [id number]=[id number] for Hannah Navarrete CBC (HEMOGRAM ONLY)2019-02-07 07:10:00 Test Item Value Reference Range Comments WHITE BLOOD CELL COUNT (BEAKER) (test jdef=614) 36.1 K/ L 3.5-10.5 RED BLOOD CELL COUNT (BEAKER) (test koej=918) 3.07 M/ L 3.93-5.22 HEMOGLOBIN (BEAKER) (test khcf=782) 9.7 GM/DL 11.2-15.7 HEMATOCRIT (BEAKER) (test dxgs=963) 28.2 % 34.1-44.9 MEAN CORPUSCULAR VOLUME (BEAKER) (test hbiq=036) 91.9 fL 79.4-94.8 MEAN CORPUSCULAR HEMOGLOBIN (BEAKER) (test 31.6 pg 25.6-32.2 pnmg=090) MEAN CORPUSCULAR HEMOGLOBIN CONC (BEAKER) (test 34.4 GM/DL 32.2-35.5 gkja=987) RED CELL DISTRIBUTION WIDTH (BEAKER) (test 13.1 % 11.7-14.4 nkja=310) PLATELET COUNT (BEAKER) (test wiie=909) 230 K/CU MM 150-450 MEAN PLATELET VOLUME (BEAKER) (test xveu=609) 11.6 fL 9.4-12.3 NUCLEATED RED BLOOD CELLS (BEAKER) (test 0 /100 WBC 0-0 iscs=772) POCT-GLUCOSE [id number] 05:57:00 Test Item Value Reference Range Comments POC-GLUCOSE METER (BEAKER) 149 mg/dL 70-110 : TESTED AT [facility] [address] (test yvzi=7531) [facility], [address]: Shield Installer/Hydraulic Lift Operator UZ=[id number] for Sue Wade [id number] 05:50:00 Test Item Value Reference Range Comments MAGNESIUM (BEAKER) (test 1.9 mg/dL 1.6-2.6 Specimen slightly hemolyzed sgzq=885) BASIC METABOLIC [id number] 05:50:00 Test Item Value Reference Range Comments SODIUM (BEAKER) (test 132 meq/L 136-145 nwqp=206) POTASSIUM (BEAKER) (test 4.7 meq/L 3.5-5.1 Specimen slightly taaw=204) hemolyzed CHLORIDE (BEAKER) (test 103 meq/L 98-107 atid=050) CO2 (BEAKER) (test 21 meq/L 22-29 mvkg=377) BLOOD UREA NITROGEN 18 mg/dL 7-21 (BEAKER) (test cgxw=062) CREATININE (BEAKER) (test 0.47 mg/dL 0.57-1.25 Specimen slightly vuso=303) hemolyzed GLUCOSE RANDOM (BEAKER) 151 mg/dL 70-105 (test qkxh=189) CALCIUM (BEAKER) (test 8.0 mg/dL 8.4-10.2 oxrj=278) EGFR (BEAKER) (test 133 mL/min/1.73 sq m ESTIMATED GFR IS NOT ynzd=2346) ACCURATE CREATININE CLEARANCE IN PREDICTING GLOMERULAR FILTRATION RATE. ESTIMATED GFR IS NOT APPLICABLE FOR DIALYSIS PATIENTS. CALCIUM, [id number] 05:19:00 Test Item Value Reference Range Comments CALCIUM IONIZED (BEAKER) (test mbie=690) 0.91 mmol/L 1.12-1.27 PH, BLOOD (BEAKER) (test unaj=6663) 7.60 POCT-GLUCOSE [id number] 00:58:00 Test Item Value Reference Range Comments POC-GLUCOSE METER (BEAKER) 218 mg/dL 70-110 : TESTED AT [facility] [address] (test dasg=1492) [facility], [address]: Shield Installer/Hydraulic Lift Operator NB=[id number] for Sue Wade URINALYSIS W/ REFLEX URINE [id number] 00:15:00 Test Item Value Reference Range Comments COLOR (BEAKER) (test qdca=138) Yellow CLARITY (BEAKER) (test ehwj=025) Clear SPECIFIC GRAVITY UA (BEAKER) (test jkye=414) 1.018 1.001-1.035 PH UA (BEAKER) (test miut=814) 7.0 5.0-8.0 PROTEIN UA (BEAKER) (test pomj=490) Negative Negative GLUCOSE UA (BEAKER) (test lszd=286) 200 mg/dL Negative KETONES UA (BEAKER) (test pkce=526) Negative Negative BILIRUBIN UA (BEAKER) (test hpqu=052) Negative Negative BLOOD UA (BEAKER) (test fyvl=445) Negative Negative NITRITE UA (BEAKER) (test ftas=203) Positive Negative LEUKOCYTE ESTERASE UA (BEAKER) (test arrr=021) Moderate Negative UROBILINOGEN UA (BEAKER) (test tqwr=113) 0.2 mg/dL 0.2-1.0 RBC UA (BEAKER) (test voxa=678) < /HPF WBC UA (BEAKER) (test wven=020) 21 /HPF BACTERIA (BEAKER) (test qbgy=595) Occasional SQUAMOUS EPITHELIAL (BEAKER) (test hukh=554) 1 /HPF SOURCE(BEAKER) (test wumi=2290) RAD, MANDIBLE, MIN 4 [id number] 20:02:00Reason for exam:->right sided jaw painFINAL REPORT TECHNIQUE: Frontal, axiolateral, and lateral views of the mandible. INDICATION: 63-year-old woman with right- sided jaw pain. COMPARISON: None. FINDINGS:Prior craniotomy.No acute fractures or dislocations.Missing and fractured teeth. IMPRESSION:No acute osseous abnormalities of the mandible. Signed: Tali Barton MDReport Verified Date/ Time: 02/06/2019 20:02:01 Reading Location: [address] Consult Reading Room POCT- GLUCOSE [id number] 18:17:00 Test Item Value Reference Range Comments POC-GLUCOSE METER (BEAKER) 228 mg/dL 70-110 : TESTED AT [address] (test sqai=1540) [facility], [address]: Shield Installer/Hydraulic Lift Operator [id number] for Hannah Navarrete RAD, CHEST, 1 VIEW, NON [id number] 08:11:00Reason for exam:->eval for pneumoniaShould this be performed at the bedside?->YesFINAL REPORT INDICATION: eval for pneumonia COMPARISON: None TECHNIQUE: Single frontal view of the chest. FINDINGS: Lungs and pleura: Clear lungs. No effusion.Heart and mediastinum: Normal heart size. Unremarkable mediastinal contours.Osseous structures: No acute abnormality.Other: None. IMPRESSION: No acute intrathoracic abnormality. Signed: Willam Max MDReport Verified Date/ Time: 02/06/2019 08:11:12 Reading Location: [facility] Radiology Reading Room 08: 11 AMPOCT-GLUCOSE [id number] 07:39:00 Test Item Value Reference Range Comments POC-GLUCOSE METER (BEAKER) 148 mg/dL 70-110 : TESTED AT [facility] [address] (test rmub=0633) [facility], [address]: Shield Installer/Hydraulic Lift Operator [id number] for Hannah Navarrete BASIC METABOLIC [id number] 07:01:00 Test Item Value Reference Range Comments SODIUM (BEAKER) (test 132 meq/L 136-145 fdme=097) POTASSIUM (BEAKER) (test 4.3 meq/L 3.5-5.1 ycum=464) CHLORIDE (BEAKER) (test 101 meq/L 98-107 bcbs=786) CO2 (BEAKER) (test 24 meq/L 22-29 gefm=081) BLOOD UREA NITROGEN 20 mg/dL 7-21 (BEAKER) (test clwn=459) CREATININE (BEAKER) (test 0.52 mg/dL 0.57-1.25 lnpf=034) GLUCOSE RANDOM (BEAKER) 189 mg/dL 70-105 (test hofu=996) CALCIUM (BEAKER) (test 7.9 mg/dL 8.4-10.2 comg=692) EGFR (BEAKER) (test 119 mL/min/1.73 sq m ESTIMATED GFR IS NOT ufwc=3719) ACCURATE CREATININE CLEARANCE IN PREDICTING GLOMERULAR FILTRATION RATE. ESTIMATED GFR IS NOT APPLICABLE FOR DIALYSIS PATIENTS. [id number] 06:28:00 Test Item Value Reference Range Comments PHOSPHORUS (BEAKER) (test dfhw=457) 2.6 mg/dL 2.3-4.7 [id number] 06:28:00 Test Item Value Reference Range Comments MAGNESIUM (BEAKER) (test mttx=153) 1.9 mg/dL 1.6-2.6 POCT-GLUCOSE [id number] 06:09:00 Test Item Value Reference Range Comments POC-GLUCOSE METER (BEAKER) 159 mg/dL 70-110 : TESTED AT [facility] [address] (test scba=7978) [facility], [address]: Shield Installer/Hydraulic Lift Operator [id number] for Laverne Villalobos CBC (HEMOGRAM ONLY)2019-02-06 05:49:00 Test Item Value Reference Range Comments WHITE BLOOD CELL COUNT 32.6 K/ L 3.5-10.5 (BEAKER) (test qcvc=408) RED BLOOD CELL COUNT (BEAKER) 3.10 M/ L 3.93-5.22 (test vcrx=695) HEMOGLOBIN (BEAKER) (test 10.0 GM/DL 11.2-15.7 xsno=614) HEMATOCRIT (BEAKER) (test 30.5 % 34.1-44.9 cndu=578) MEAN CORPUSCULAR VOLUME 98.4 fL 79.4-94.8 Discordant MCV results (BEAKER) (test gfqu=207) compared to previous results; clinical correlation required. MEAN CORPUSCULAR HEMOGLOBIN 32.3 pg 25.6-32.2 (BEAKER) (test qpdf=382) MEAN CORPUSCULAR HEMOGLOBIN 32.8 GM/DL 32.2-35.5 CONC (BEAKER) (test bcsg=314) RED CELL DISTRIBUTION WIDTH 13.1 % 11.7-14.4 (BEAKER) (test wdbo=468) PLATELET COUNT (BEAKER) (test 176 K/CU MM 150-450 kwgz=762) MEAN PLATELET VOLUME (BEAKER) 12.0 fL 9.4-12.3 (test sbwh=061) NUCLEATED RED BLOOD CELLS 0 /100 WBC 0-0 (BEAKER) (test ojek=502) CALCIUM, [id number] 05:00:00 Test Item Value Reference Range Comments CALCIUM IONIZED (BEAKER) (test gqav=256) 1.04 mmol/L 1.12-1.27 PH, BLOOD (BEAKER) (test hwem=1037) 7.49 POCT-GLUCOSE [id number] 00:29:00 Test Item Value Reference Range Comments POC-GLUCOSE METER (BEAKER) 261 mg/dL 70-110 : TESTED AT [facility] [address] (test ubra=6318) [facility], [address]: Shield Installer/Hydraulic Lift Operator [id number] for Laverne Villalobos POCT-GLUCOSE [id number] 17:57:00 Test Item Value Reference Range Comments POC-GLUCOSE METER (BEAKER) 202 mg/dL 70-110 : TESTED AT [facility] [address] (test cevu=4856) [facility], [address]: Shield Installer/Hydraulic Lift Operator [id number] for DAQUAN CHEUNG POCT-GLUCOSE [id number] 06:38:00 Test Item Value Reference Range Comments POC-GLUCOSE METER (BEAKER) 163 mg/dL 70-110 : TESTED AT [facility] [address] [place] [address] (test vypa=0675) [facility], [address]: Shield Installer/Hydraulic Lift Operator [id number] for Laverne Villalobos [id number] 06:06:00 Test Item Value Reference Range Comments MAGNESIUM (BEAKER) (test 2.0 mg/dL 1.6-2.6 Specimen slightly hemolyzed cyfk=251) [id number] 06:06:00 Test Item Value Reference Range Comments PHOSPHORUS (BEAKER) (test 3.0 mg/dL 2.3-4.7 Specimen slightly hemolyzed jdoe=319) BASIC METABOLIC [id number] 06:06:00 Test Item Value Reference Range Comments SODIUM (BEAKER) (test 135 meq/L 136-145 jbxf=815) POTASSIUM (BEAKER) (test 4.2 meq/L 3.5-5.1 Specimen slightly gmtr=414) hemolyzed CHLORIDE (BEAKER) (test 104 meq/L 98-107 bvnn=455) CO2 (BEAKER) (test 25 meq/L 22-29 hqyw=044) BLOOD UREA NITROGEN 18 mg/dL 7-21 (BEAKER) (test nbgx=459) CREATININE (BEAKER) (test 0.47 mg/dL 0.57-1.25 Specimen slightly asok=825) hemolyzed GLUCOSE RANDOM (BEAKER) 168 mg/dL 70-105 (test jmmn=723) CALCIUM (BEAKER) (test 8.1 mg/dL 8.4-10.2 rnmy=899) EGFR (BEAKER) (test 133 mL/min/1.73 sq m ESTIMATED GFR IS NOT yndb=2535) ACCURATE CREATININE CLEARANCE IN PREDICTING GLOMERULAR FILTRATION RATE. ESTIMATED GFR IS NOT APPLICABLE FOR DIALYSIS PATIENTS. CBC (HEMOGRAM ONLY)2019-02-05 05:31:00 Test Item Value Reference Range Comments WHITE BLOOD CELL COUNT (BEAKER) (test ommf=483) 20.4 K/ L 3.5-10.5 RED BLOOD CELL COUNT (BEAKER) (test mykg=691) 2.85 M/ L 3.93-5.22 HEMOGLOBIN (BEAKER) (test kmhs=726) 8.9 GM/DL 11.2-15.7 HEMATOCRIT (BEAKER) (test kobn=309) 26.8 % 34.1-44.9 MEAN CORPUSCULAR VOLUME (BEAKER) (test vrtd=470) 94.0 fL 79.4-94.8 MEAN CORPUSCULAR HEMOGLOBIN (BEAKER) (test 31.2 pg 25.6-32.2 khfk=814) MEAN CORPUSCULAR HEMOGLOBIN CONC (BEAKER) (test 33.2 GM/DL 32.2-35.5 xwkc=975) RED CELL DISTRIBUTION WIDTH (BEAKER) (test 12.9 % 11.7-14.4 mddb=847) PLATELET COUNT (BEAKER) (test qoja=911) 180 K/CU MM 150-450 MEAN PLATELET VOLUME (BEAKER) (test sxww=927) 11.9 fL 9.4-12.3 NUCLEATED RED BLOOD CELLS (BEAKER) (test 0 /100 WBC 0-0 eyht=734) CALCIUM, [id number] 05:20:00 Test Item Value Reference Range Comments CALCIUM IONIZED (BEAKER) (test jsjm=539) 1.03 mmol/L 1.12-1.27 PH, BLOOD (BEAKER) (test cszf=4611) 7.56 POCT-GLUCOSE [id number] 00:10:00 Test Item Value Reference Range Comments POC-GLUCOSE METER (BEAKER) 174 mg/dL 70-110 : TESTED AT [facility] [address] (test yhtx=3502) [facility], [address]: Shield Installer/Hydraulic Lift Operator [id number] for Wilfredo Laverne HEMOGLOBIN AND [id number] 21:37:00 Test Item Value Reference Range Comments HEMOGLOBIN (BEAKER) (test ooiw=405) 8.5 GM/DL 11.2-15.7 HEMATOCRIT (BEAKER) (test igve=505) 25.4 % 34.1-44.9 POCT-GLUCOSE [id number] 12:08:00 Test Item Value Reference Range Comments POC-GLUCOSE METER (BEAKER) 154 mg/dL 70-110 : TESTED AT [facility] [address] (test miyt=5255) [facility], [address]: Shield Installer/Hydraulic Lift Operator [id number] for JETHRO MURPHY BASIC METABOLIC [id number] 06:24:00 Test Item Value Reference Range Comments SODIUM (BEAKER) (test 141 meq/L 136-145 lzqp=557) POTASSIUM (BEAKER) (test 4.2 meq/L 3.5-5.1 adru=992) CHLORIDE (BEAKER) (test 112 meq/L 98-107 koel=169) CO2 (BEAKER) (test 18 meq/L 22-29 ixbm=199) BLOOD UREA NITROGEN 28 mg/dL 7-21 (BEAKER) (test xgti=339) CREATININE (BEAKER) (test 0.50 mg/dL 0.57-1.25 gdfu=218) GLUCOSE RANDOM (BEAKER) 163 mg/dL 70-105 (test ccqf=051) CALCIUM (BEAKER) (test 7.9 mg/dL 8.4-10.2 xdyl=896) EGFR (BEAKER) (test 124 mL/min/1.73 sq m ESTIMATED GFR IS NOT ioqj=2499) ACCURATE CREATININE CLEARANCE IN PREDICTING GLOMERULAR FILTRATION RATE. ESTIMATED GFR IS NOT APPLICABLE FOR DIALYSIS PATIENTS. [id number] 06:22:00 Test Item Value Reference Range Comments PHOSPHORUS (BEAKER) (test hfee=135) 2.8 mg/dL 2.3-4.7 [id number] 06:22:00 Test Item Value Reference Range Comments MAGNESIUM (BEAKER) (test vwfz=842) 2.2 mg/dL 1.6-2.6 CBC (HEMOGRAM ONLY)2019-02-04 06:18:00 Test Item Value Reference Range Comments WHITE BLOOD CELL COUNT (BEAKER) (test iekh=938) 18.2 K/ L 3.5-10.5 RED BLOOD CELL COUNT (BEAKER) (test dzxi=755) 2.48 M/ L 3.93-5.22 HEMOGLOBIN (BEAKER) (test ofim=623) 7.9 GM/DL 11.2-15.7 HEMATOCRIT (BEAKER) (test uthx=228) 23.9 % 34.1-44.9 MEAN CORPUSCULAR VOLUME (BEAKER) (test fvnh=847) 96.4 fL 79.4-94.8 MEAN CORPUSCULAR HEMOGLOBIN (BEAKER) (test 31.9 pg 25.6-32.2 rdbi=635) MEAN CORPUSCULAR HEMOGLOBIN CONC (BEAKER) (test 33.1 GM/DL 32.2-35.5 onwx=565) RED CELL DISTRIBUTION WIDTH (BEAKER) (test 13.6 % 11.7-14.4 vdfz=614) PLATELET COUNT (BEAKER) (test orwy=716) 170 K/CU MM 150-450 MEAN PLATELET VOLUME (BEAKER) (test efsy=950) 12.1 fL 9.4-12.3 NUCLEATED RED BLOOD CELLS (BEAKER) (test 0 /100 WBC 0-0 kjom=786) CALCIUM, [id number] 05:30:00 Test Item Value Reference Range Comments CALCIUM IONIZED (BEAKER) (test ywxp=973) 1.13 mmol/L 1.12-1.27 PH, BLOOD (BEAKER) (test wsdy=0932) 7.48 HEMOGLOBIN AND [id number] 20:38:00 Test Item Value Reference Range Comments HEMOGLOBIN (BEAKER) (test axvn=756) 8.6 GM/DL 11.2-15.7 HEMATOCRIT (BEAKER) (test vwsy=323) 26.3 % 34.1-44.9 TISSUE [id number] 14:41:00Surgical Pathology Report Case: [id number] Authorizing Provider: Elijah Cheung MD Collected: 01/31/2019 0854 Ordering Location: [place] [address] ICU Received: 01/31/2019 0900 Pathologist: Henri Dumont MD Specimens: A) - Tumor, Large Frontal Tumor B) - Tumor, Large Frontal Tumor C) -Tumor, Parietal Tumor A. 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 55192 x 2; 60064; 66451; [id number] A. Large frontal tumor. B. Large frontal [...] evaluated Immunohistochemistry technical testing was performed at [facility], Pathology Laboratory where it was developed and [...] perform high complexity clinical laboratory testing.HEMOGLOBIN AND [id number] 14:25:00 Test Item Value Reference Range Comments HEMOGLOBIN (BEAKER) (test ztii=954) 7.9 GM/DL 11.2-15.7 HEMATOCRIT (BEAKER) (test kown=408) 23.7 % 34.1-44.9 [id number] 11:30:00 Test Item Value Reference Range Comments SODIUM (BEAKER) (test monh=271) 144 meq/L 136-145 CALCIUM, [id number] 06:44:00 Test Item Value Reference Range Comments CALCIUM IONIZED (BEAKER) (test xabl=363) 1.09 mmol/L 1.12-1.27 PH, BLOOD (BEAKER) (test iseh=7572) 7.45 BASIC METABOLIC [id number] 05:42:00 Test Item Value Reference Range Comments SODIUM (BEAKER) (test 146 meq/L 136-145 pdqj=865) POTASSIUM (BEAKER) (test 3.9 meq/L 3.5-5.1 cwua=698) CHLORIDE (BEAKER) (test 120 meq/L 98-107 fvlb=277) CO2 (BEAKER) (test 22 meq/L 22-29 aqzw=065) BLOOD UREA NITROGEN 18 mg/dL 7-21 (BEAKER) (test uwqz=675) CREATININE (BEAKER) (test 0.45 mg/dL 0.57-1.25 jvzj=171) GLUCOSE RANDOM (BEAKER) 159 mg/dL 70-105 (test egdl=525) CALCIUM (BEAKER) (test 7.3 mg/dL 8.4-10.2 vsmq=302) EGFR (BEAKER) (test 140 mL/min/1.73 sq m ESTIMATED GFR IS NOT ufts=8597) ACCURATE CREATININE CLEARANCE IN PREDICTING GLOMERULAR FILTRATION RATE. ESTIMATED GFR IS NOT APPLICABLE FOR DIALYSIS PATIENTS. [id number] 05:22:00 Test Item Value Reference Range Comments PHOSPHORUS (BEAKER) (test fvxe=807) 1.9 mg/dL 2.3-4.7 [id number] 05:22:00 Test Item Value Reference Range Comments MAGNESIUM (BEAKER) (test xddt=360) 2.3 mg/dL 1.6-2.6 HEMOGLOBIN AND [id number] 05:05:00 Test Item Value Reference Range Comments HEMOGLOBIN (BEAKER) (test fzjj=691) 7.5 GM/DL 11.2-15.7 HEMATOCRIT (BEAKER) (test uwzj=832) 23.2 % 34.1-44.9 [id number] 02:17:00 Test Item Value Reference Range Comments SODIUM (BEAKER) (test kgza=723) 143 meq/L 136-145 CBC (HEMOGRAM ONLY)2019-02-03 01:27:00 Test Item Value Reference Range Comments WHITE BLOOD CELL COUNT (BEAKER) (test irtk=718) 17.7 K/ L 3.5-10.5 RED BLOOD CELL COUNT (BEAKER) (test wrvc=942) 2.43 M/ L 3.93-5.22 HEMOGLOBIN (BEAKER) (test mgcv=932) 7.8 GM/DL 11.2-15.7 HEMATOCRIT (BEAKER) (test epkq=954) 23.5 % 34.1-44.9 MEAN CORPUSCULAR VOLUME (BEAKER) (test lhoj=924) 96.7 fL 79.4-94.8 MEAN CORPUSCULAR HEMOGLOBIN (BEAKER) (test 32.1 pg 25.6-32.2 amdr=326) MEAN CORPUSCULAR HEMOGLOBIN CONC (BEAKER) (test 33.2 GM/DL 32.2-35.5 fygk=882) RED CELL DISTRIBUTION WIDTH (BEAKER) (test 13.7 % 11.7-14.4 ppse=671) PLATELET COUNT (BEAKER) (test clbf=129) 145 K/CU MM 150-450 MEAN PLATELET VOLUME (BEAKER) (test loux=378) 12.3 fL 9.4-12.3 NUCLEATED RED BLOOD CELLS (BEAKER) (test 0 /100 WBC 0-0 uaol=352) [id number] 18:21:00 Test Item Value Reference Range Comments SODIUM (BEAKER) (test fxsh=429) 146 meq/L 136-145 HEMOGLOBIN AND [id number] 17:59:00 Test Item Value Reference Range Comments HEMOGLOBIN (BEAKER) (test lgoq=772) 8.5 GM/DL 11.2-15.7 HEMATOCRIT (BEAKER) (test ymqx=907) 26.0 % 34.1-44.9 BASIC METABOLIC [id number] 12:30:00 Test Item Value Reference Range Comments SODIUM (BEAKER) (test 144 meq/L 136-145 nisb=520) POTASSIUM (BEAKER) (test 3.8 meq/L 3.5-5.1 Specimen slightly ehnq=494) hemolyzed CHLORIDE (BEAKER) (test 115 meq/L 98-107 vnns=825) CO2 (BEAKER) (test 24 meq/L 22-29 klfe=104) BLOOD UREA NITROGEN 14 mg/dL 7-21 (BEAKER) (test ngne=718) CREATININE (BEAKER) (test 0.52 mg/dL 0.57-1.25 Specimen slightly ptpl=292) hemolyzed GLUCOSE RANDOM (BEAKER) 206 mg/dL 70-105 (test favv=192) CALCIUM (BEAKER) (test 7.7 mg/dL 8.4-10.2 kbni=594) EGFR (BEAKER) (test 119 mL/min/1.73 sq m ESTIMATED GFR IS NOT pupe=1656) ACCURATE CREATININE CLEARANCE IN PREDICTING GLOMERULAR FILTRATION RATE. ESTIMATED GFR IS NOT APPLICABLE FOR DIALYSIS PATIENTS. MR, MRA, BRAIN, WITH [id number] 11:58:00Please perform MRVFINAL REPORT MR, MRA, BRAIN, WITH CONTRAST CLINICAL HISTORY: Cerebral edema COMPARISON: Relation to CT angiography February 02, 2019 and contrast enhanced brain MRI February 01, 2019 TECHNIQUE:Two-dimensional sexc-af-fqdlqa MR venogram of the brain in the [...] The straight sinus is preserved. Signed: JR Liz, Blane Bernal Verified Date/Time: 02/02/2019 11:58:58 Reading Location: [address] Neuro Reading Room [id number] 11:02:00 Test Item Value Reference Range Comments HAPTOGLOBIN (BEAKER) (test dtcm=984) 255 mg/dL 14-258 IRON, TIBC, % SAT. (WITHOUT FERRITIN)2019-02-02 10:58:00 Test Item Value Reference Range Comments IRON (BEAKER) (test mmfm=751) 26.0 ug/dL 40.0-160.0 TOTAL IRON BINDING CAPACITY (BEAKER) (test 220 ug/dL 250-450 ijgl=701) IRON % SATURATION (2) (BEAKER) (test scul=6026) 12 % 20-55 [id number] 10:32:00 Test Item Value Reference Range Comments SODIUM (BEAKER) (test igcy=787) 144 meq/L 136-145 CBC W/PLT COUNT & AUTO [id number] 10:22:00 Test Item Value Reference Range Comments WHITE BLOOD CELL COUNT (BEAKER) (test tavt=886) 18.9 K/ L 3.5-10.5 RED BLOOD CELL COUNT (BEAKER) (test yimp=511) 2.41 M/ L 3.93-5.22 HEMOGLOBIN (BEAKER) (test ehob=043) 7.7 GM/DL 11.2-15.7 HEMATOCRIT (BEAKER) (test jkwq=094) 23.6 % 34.1-44.9 MEAN CORPUSCULAR VOLUME (BEAKER) (test amtx=569) 97.9 fL 79.4-94.8 MEAN CORPUSCULAR HEMOGLOBIN (BEAKER) (test 32.0 pg 25.6-32.2 ypkz=681) MEAN CORPUSCULAR HEMOGLOBIN CONC (BEAKER) (test 32.6 GM/DL 32.2-35.5 ovfe=982) RED CELL DISTRIBUTION WIDTH (BEAKER) (test 13.7 % 11.7-14.4 pecd=946) PLATELET COUNT (BEAKER) (test ucjw=425) 142 K/CU MM 150-450 MEAN PLATELET VOLUME (BEAKER) (test lkmi=131) 13.0 fL 9.4-12.3 NUCLEATED RED BLOOD CELLS (BEAKER) (test 0 /100 WBC 0-0 fzcf=490) NEUTROPHILS RELATIVE PERCENT (BEAKER) (test 85 % bqfr=544) LYMPHOCYTES RELATIVE PERCENT (BEAKER) (test 6 % hvsy=161) MONOCYTES RELATIVE PERCENT (BEAKER) (test 5 % jivv=850) EOSINOPHILS RELATIVE PERCENT (BEAKER) (test 0 % ajgi=844) BASOPHILS RELATIVE PERCENT (BEAKER) (test 0 % dbvw=785) NEUTROPHILS ABSOLUTE COUNT (BEAKER) (test 16.09 K/ L 1.56-6.13 rume=813) LYMPHOCYTES ABSOLUTE COUNT (BEAKER) (test 1.15 K/ L 1.18-3.74 ydmr=094) MONOCYTES ABSOLUTE COUNT (BEAKER) (test 1.02 K/ L 0.24-0.36 wedo=495) EOSINOPHILS ABSOLUTE COUNT (BEAKER) (test 0.00 K/ L 0.04-0.36 rjqi=234) BASOPHILS ABSOLUTE COUNT (BEAKER) (test 0.02 K/ L 0.01-0.08 ezfr=696) IMMATURE GRANULOCYTES-RELATIVE PERCENT (BEAKER) 3 % 0-1 (test volx=3583) LACTATE DEHYDROGENASE (LDH)2019-02-02 10:06:00 Test Item Value Reference Range Comments LACTATE DEHYDROGENASE (BEAKER) (test oyjc=537) 176 U/L 125-220 HEMOGLOBIN AND [id number] 10:04:00 Test Item Value Reference Range Comments HEMOGLOBIN (BEAKER) (test bohn=028) 8.4 GM/DL 11.2-15.7 HEMATOCRIT (BEAKER) (test xspn=658) 25.0 % 34.1-44.9 HEMOGLOBIN AND [id number] 07:48:00 Test Item Value Reference Range Comments HEMOGLOBIN (BEAKER) (test wycb=166) 7.6 GM/DL 11.2-15.7 HEMATOCRIT (BEAKER) (test ozds=207) 23.6 % 34.1-44.9 CALCIUM, [id number] 07:01:00 Test Item Value Reference Range Comments CALCIUM IONIZED (BEAKER) (test gfph=994) 1.07 mmol/L 1.12-1.27 PH, BLOOD (BEAKER) (test ccmv=5301) 7.41 CT, CTANGIO [id number] 06:58:00CT brain venogram neededAnesthesia:-> NoneFINAL REPORT CT, [...] MDReport Verified Date/Time: 02/02/2019 06:58:52 Reading Location: [facility] C013V Neuro Reading Room BASIC METABOLIC [id number] 05:11:00 Test Item Value Reference Range Comments SODIUM (BEAKER) (test 146 meq/L 136-145 zdrd=941) POTASSIUM (BEAKER) (test 3.7 meq/L 3.5-5.1 bsps=375) CHLORIDE (BEAKER) (test 118 meq/L 98-107 cqeh=845) CO2 (BEAKER) (test 25 meq/L 22-29 nwij=180) BLOOD UREA NITROGEN 14 mg/dL 7-21 (BEAKER) (test uhna=448) CREATININE (BEAKER) (test 0.48 mg/dL 0.57-1.25 kpnf=360) GLUCOSE RANDOM (BEAKER) 170 mg/dL 70-105 (test axrn=501) CALCIUM (BEAKER) (test 7.5 mg/dL 8.4-10.2 ydla=888) EGFR (BEAKER) (test 130 mL/min/1.73 sq m ESTIMATED GFR IS NOT slis=6418) ACCURATE CREATININE CLEARANCE IN PREDICTING GLOMERULAR FILTRATION RATE. ESTIMATED GFR IS NOT APPLICABLE FOR DIALYSIS PATIENTS. CBC (HEMOGRAM ONLY)2019-02-02 04:57:00 Test Item Value Reference Range Comments WHITE BLOOD CELL COUNT (BEAKER) (test umtc=198) 20.2 K/ L 3.5-10.5 RED BLOOD CELL COUNT (BEAKER) (test dfql=865) 2.36 M/ L 3.93-5.22 HEMOGLOBIN (BEAKER) (test cvul=449) 7.5 GM/DL 11.2-15.7 HEMATOCRIT (BEAKER) (test ctce=628) 23.1 % 34.1-44.9 MEAN CORPUSCULAR VOLUME (BEAKER) (test nxpo=589) 97.9 fL 79.4-94.8 MEAN CORPUSCULAR HEMOGLOBIN (BEAKER) (test 31.8 pg 25.6-32.2 zorl=257) MEAN CORPUSCULAR HEMOGLOBIN CONC (BEAKER) (test 32.5 GM/DL 32.2-35.5 prhw=414) RED CELL DISTRIBUTION WIDTH (BEAKER) (test 13.7 % 11.7-14.4 swtr=617) PLATELET COUNT (BEAKER) (test tlkw=627) 124 K/CU MM 150-450 MEAN PLATELET VOLUME (BEAKER) (test rixv=098) 12.1 fL 9.4-12.3 NUCLEATED RED BLOOD CELLS (BEAKER) (test 0 /100 WBC 0-0 eowr=020) [id number] 04:33:00 Test Item Value Reference Range Comments PHOSPHORUS (BEAKER) (test ltmu=277) 1.6 mg/dL 2.3-4.7 [id number] 04:33:00 Test Item Value Reference Range Comments MAGNESIUM (BEAKER) (test sedp=804) 2.1 mg/dL 1.6-2.6 [id number] 22:31:00 Test Item Value Reference Range Comments SODIUM (BEAKER) (test ceyd=975) 143 meq/L 136-145 HEMOGLOBIN AND [id number] 22:14:00 Test Item Value Reference Range Comments HEMOGLOBIN (BEAKER) (test skvw=570) 8.5 GM/DL 11.2-15.7 HEMATOCRIT (BEAKER) (test hqeb=342) 26.4 % 34.1-44.9 BUN AND [id number] 21:08:00 Test Item Value Reference Range Comments BLOOD UREA NITROGEN 15 mg/dL 7-21 (BEAKER) (test drxw=325) CREATININE (BEAKER) (test 0.57 mg/dL 0.57-1.25 Specimen slightly gglw=383) hemolyzed EGFR (BEAKER) (test 107 mL/min/1.73 sq m ESTIMATED GFR IS NOT rnvd=1242) ACCURATE CREATININE CLEARANCE IN PREDICTING GLOMERULAR FILTRATION RATE. ESTIMATED GFR IS NOT APPLICABLE FOR DIALYSIS PATIENTS. [id number] 18:06:00 Test Item Value Reference Range Comments SODIUM (BEAKER) (test gmku=482) 142 meq/L 136-145 HEMOGLOBIN AND [id number] 17:55:00 Test Item Value Reference Range Comments HEMOGLOBIN (BEAKER) (test naji=823) 9.1 GM/DL 11.2-15.7 HEMATOCRIT (BEAKER) (test ahcl=755) 27.5 % 34.1-44.9 POCT-GLUCOSE [id number] 17:33:00 Test Item Value Reference Range Comments POC-GLUCOSE METER (BEAKER) 164 mg/dL 70-110 : TESTED AT [facility] [address] (test bsew=4636) [facility], [address]: Shield Installer/Hydraulic Lift Operator YI=[id number] for Smita Olsen MR, BRAIN, [id number] 17:22:00Deos the patient have an implanted electronic [...] Signed: Nusrat Castillo Verified Date/Time: 02/01/2019 17:22:43 [id number] 12:57:00 Test Item Value Reference Range Comments SODIUM (BEAKER) (test uqte=206) 142 meq/L 136-145 POCT-GLUCOSE [id number] 11:31:00 Test Item Value Reference Range Comments POC-GLUCOSE METER (BEAKER) 137 mg/dL 70-110 : TESTED AT [facility] [address] (test spyq=2160) [facility], [address]: Shield Installer/Hydraulic Lift Operator UG=[id number] for REGINALD DAILY BASIC METABOLIC [id number] 06:51:00 Test Item Value Reference Range Comments SODIUM (BEAKER) (test 141 meq/L 136-145 rftr=946) POTASSIUM (BEAKER) (test 3.8 meq/L 3.5-5.1 jlen=650) CHLORIDE (BEAKER) (test 115 meq/L 98-107 djwy=952) CO2 (BEAKER) (test 22 meq/L 22-29 kris=079) BLOOD UREA NITROGEN 15 mg/dL 7-21 (BEAKER) (test bbqh=498) CREATININE (BEAKER) (test 0.61 mg/dL 0.57-1.25 umcc=663) GLUCOSE RANDOM (BEAKER) 164 mg/dL 70-105 (test gfft=940) CALCIUM (BEAKER) (test 7.1 mg/dL 8.4-10.2 vtmt=055) EGFR (BEAKER) (test 99 mL/min/1.73 sq m ESTIMATED GFR IS NOT qfqv=2403) ACCURATE CREATININE CLEARANCE IN PREDICTING GLOMERULAR FILTRATION RATE. ESTIMATED GFR IS NOT APPLICABLE FOR DIALYSIS PATIENTS. CBC (HEMOGRAM ONLY)2019-02-01 06:34:00 Test Item Value Reference Range Comments WHITE BLOOD CELL COUNT (BEAKER) 21.1 K/ L 3.5-10.5 (test fppm=052) RED BLOOD CELL COUNT (BEAKER) 2.55 M/ L 3.93-5.22 (test iqaj=254) HEMOGLOBIN (BEAKER) (test 7.9 GM/DL 11.2-15.7 Surgery done as per aplr=154) [id number] HEMATOCRIT (BEAKER) (test 24.2 % 34.1-44.9 ahni=719) MEAN CORPUSCULAR VOLUME 94.9 fL 79.4-94.8 (BEAKER) (test tkoi=560) MEAN CORPUSCULAR HEMOGLOBIN 31.0 pg 25.6-32.2 (BEAKER) (test rkil=510) MEAN CORPUSCULAR HEMOGLOBIN 32.6 GM/DL 32.2-35.5 CONC (BEAKER) (test fqaq=526) RED CELL DISTRIBUTION WIDTH 13.3 % 11.7-14.4 (BEAKER) (test hkyp=049) PLATELET COUNT (BEAKER) (test 125 K/CU MM 150-450 nxnj=231) MEAN PLATELET VOLUME (BEAKER) 12.2 fL 9.4-12.3 (test mqkx=852) NUCLEATED RED BLOOD CELLS 0 /100 WBC 0-0 (BEAKER) (test mynh=622) [id number] 06:31:00 Test Item Value Reference Range Comments PHOSPHORUS (BEAKER) (test ybck=578) 2.5 mg/dL 2.3-4.7 [id number] 06:31:00 Test Item Value Reference Range Comments MAGNESIUM (BEAKER) (test vmeo=632) 2.1 mg/dL 1.6-2.6 CALCIUM, [id number] 06:21:00 Test Item Value Reference Range Comments CALCIUM IONIZED (BEAKER) (test ykmi=932) 1.05 mmol/L 1.12-1.27 PH, BLOOD (BEAKER) (test ghfx=2599) 7.48 POCT-GLUCOSE [id number] 06:08:00 Test Item Value Reference Range Comments POC-GLUCOSE METER (BEAKER) 144 mg/dL 70-110 : TESTED AT [address] (test tgdx=1812) [facility], [address]: Shield Installer/Hydraulic Lift Operator [id number] for BRENDEN LEON [id number] 00:23:00 Test Item Value Reference Range Comments SODIUM (BEAKER) (test qjxm=346) 141 meq/L 136-145 POCT-GLUCOSE [id number] 00:01:00 Test Item Value Reference Range Comments POC-GLUCOSE METER (BEAKER) 145 mg/dL 70-110 : TESTED AT [address] (test doyk=4779) [facility], [address]: Shield Installer/Hydraulic Lift Operator [id number] for BRENDEN LEON POCT-GLUCOSE [id number] 18:02:00 Test Item Value Reference Range Comments POC-GLUCOSE METER (BEAKER) 137 mg/dL 70-110 : TESTED AT [address] (test vlru=6472) [facility], [address]: Shield Installer/Hydraulic Lift Operator [id number] for Sylvia Beasley CALCIUM, [id number] 11:09:00 Test Item Value Reference Range Comments CALCIUM IONIZED (BEAKER) (test dxxd=715) 1.23 mmol/L 1.12-1.27 PH, BLOOD (BEAKER) (test cxph=6314) 7.39 BLOOD GAS, [id number] 11:02:00 Test Item Value Reference Range Comments PH ARTERIAL (BEAKER) (test ibla=354) 7.40 7.35-7.45 PCO2 ARTERIAL (BEAKER) (test rhya=904) 35 mmHg 35-45 PO2 ARTERIAL (BEAKER) (test rlam=187) 198 mmHg 80-90 O2 SATURATION ARTERIAL (BEAKER) (test zzwi=113) 99.4 % 96.0-97.0 HCO3 ARTERIAL (BEAKER) (test bklt=687) 22 mmol/L 21-29 BASE EXCESS ARTERIAL (BEAKER) (test eswh=745) -3.0 mmol/L -2.0-3.0 PATIENT TEMPERATURE (BEAKER) (test wqar=0167) 35.9 C FIO2 (BEAKER) (test oeaz=3917) 50.0 % GLUCOSE-STAT [id number] 11:02:00 Test Item Value Reference Range Comments GLUCOSE RANDOM (BEAKER) (test wolr=365) 136 mg/dL 70-110 SODIUM NA-STAT [id number] 11:01:00 Test Item Value Reference Range Comments SODIUM (BEAKER) (test omhx=052) 138 meq/L 135-148 POTASSIUM-STAT [id number] 11:01:00 Test Item Value Reference Range Comments POTASSIUM (BEAKER) (test tlfh=147) 3.9 meq/L 3.6-5.5 HGB/HCT (H&H) - STAT [id number] 11:01:00 Test Item Value Reference Range Comments HEMOGLOBIN (BEAKER) (test ujxx=058) 12.3 g/dL 12.0-15.0 HEMATOCRIT (BEAKER) (test qkqu=951) 36.0 % 36.0-45.0 SODIUM NA-STAT [id number] 10:15:00 Test Item Value Reference Range Comments SODIUM (BEAKER) (test wgjb=148) 137 meq/L 135-148 POTASSIUM-STAT [id number] 10:15:00 Test Item Value Reference Range Comments POTASSIUM (BEAKER) (test xcdt=525) 4.3 meq/L 3.6-5.5 HGB/HCT (H&H) - STAT [id number] 10:15:00 Test Item Value Reference Range Comments HEMOGLOBIN (BEAKER) (test qxef=888) 12.7 GM/DL 12.0-15.0 HEMATOCRIT (BEAKER) (test zkfk=312) 37.0 % 36.0-45.0 CALCIUM, [id number] 10:02:00 Test Item Value Reference Range Comments CALCIUM IONIZED (BEAKER) (test lcmu=037) 0.93 mmol/L 1.12-1.27 PH, BLOOD (BEAKER) (test kold=1473) 7.46 BLOOD GAS, [id number] 10:02:00 Test Item Value Reference Range Comments PH ARTERIAL (BEAKER) (test gbab=696) 7.48 7.35-7.45 PCO2 ARTERIAL (BEAKER) (test trju=858) 29 mmHg 35-45 PO2 ARTERIAL (BEAKER) (test ejug=509) 138 mmHg 80-90 O2 SATURATION ARTERIAL (BEAKER) (test ohzy=180) 99.0 % 96.0-97.0 HCO3 ARTERIAL (BEAKER) (test jvbj=664) 22 mmol/L 21-29 BASE EXCESS ARTERIAL (BEAKER) (test kelf=019) -1.1 mmol/L -2.0-3.0 PATIENT TEMPERATURE (BEAKER) (test elgb=2931) 35.4 C FIO2 (BEAKER) (test hdzl=4357) 50.0 % GLUCOSE-STAT [id number] 10:02:00 Test Item Value Reference Range Comments GLUCOSE RANDOM (BEAKER) (test uphz=089) 136 mg/dL 70-110 GLUCOSE-STAT [id number] 09:05:00 Test Item Value Reference Range Comments GLUCOSE RANDOM (BEAKER) (test gwxh=780) 134 mg/dL 70-110 SODIUM NA-STAT [id number] 09:05:00 Test Item Value Reference Range Comments SODIUM (BEAKER) (test xrnd=823) 134 meq/L 135-148 POTASSIUM-STAT [id number] 09:04:00 Test Item Value Reference Range Comments POTASSIUM (BEAKER) (test wabn=276) 4.1 meq/L 3.6-5.5 HGB/HCT (H&H) - STAT [id number] 09:04:00 Test Item Value Reference Range Comments HEMOGLOBIN (BEAKER) (test ahvg=671) 13.3 g/dL 12.0-15.0 HEMATOCRIT (BEAKER) (test voxd=318) 39.0 % 36.0-45.0 BLOOD GAS, [id number] 09:04:00 Test Item Value Reference Range Comments PH ARTERIAL (BEAKER) (test qkxz=875) 7.41 7.35-7.45 PCO2 ARTERIAL (BEAKER) (test uyym=377) 36 mmHg 35-45 PO2 ARTERIAL (BEAKER) (test hunf=606) 219 mmHg 80-90 O2 SATURATION ARTERIAL (BEAKER) (test yyfd=276) 99.5 % 96.0-97.0 HCO3 ARTERIAL (BEAKER) (test ggrw=204) 22 mmol/L 21-29 BASE EXCESS ARTERIAL (BEAKER) (test ctwg=633) -1.4 mmol/L -2.0-3.0 PATIENT TEMPERATURE (BEAKER) (test pfwi=8940) 39.5 C FIO2 (BEAKER) (test buxg=1102) 50.0 % CT, BRAIN, WITHOUT [id number] 06:26:00FINAL REPORT CT, BRAIN, WITHOUT CONTRAST CLINICAL [...] MDReport Verified Date/Time: 01/31/2019 06:26:03 06 :26 [id number] 21:57:00 Test Item Value Reference Range Comments PARTIAL THROMBOPLASTIN TIME (BEAKER) (test 27.3 seconds 22.5-36.0 clef=213) BASIC METABOLIC [id number] 13:35:00 Test Item Value Reference Range Comments SODIUM (BEAKER) (test 135 meq/L 136-145 udhx=539) POTASSIUM (BEAKER) (test 4.5 meq/L 3.5-5.1 Specimen slightly tduw=279) hemolyzed CHLORIDE (BEAKER) (test 106 meq/L 98-107 qdni=213) CO2 (BEAKER) (test 23 meq/L 22-29 coug=906) BLOOD UREA NITROGEN 23 mg/dL 7-21 (BEAKER) (test ipxm=143) CREATININE (BEAKER) (test 0.54 mg/dL 0.57-1.25 Specimen slightly zwuk=078) hemolyzed GLUCOSE RANDOM (BEAKER) 113 mg/dL 70-105 (test gqhy=682) CALCIUM (BEAKER) (test 8.2 mg/dL 8.4-10.2 ohfi=798) EGFR (BEAKER) (test 114 mL/min/1.73 sq m ESTIMATED GFR IS NOT bpgb=5867) ACCURATE CREATININE CLEARANCE IN PREDICTING GLOMERULAR FILTRATION RATE. ESTIMATED GFR IS NOT APPLICABLE FOR DIALYSIS PATIENTS. PROTHROMBIN TIME/[id number] 13:22:00 Test Item Value Reference Range Comments PROTIME (BEAKER) (test pmxy=742) 14.0 seconds 11.9-14.2 INR (BEAKER) (test xcpg=752) 1.1 <=5.9 Effective 08/10/2018: PT Reference Range ChangeNew: 11.9-14.2 Previous: 11.7- 14.7RECOMMENDED COUMADIN/WARFARIN INR THERAPY RANGESSTANDARD DOSE: 2.0-3.0 Includes: PROPHYLAXIS for venous thrombosis, systemic embolization; TREATMENT for venous thrombosis and/or pulmonary embolus.HIGH RISK: Target INR is2.5-3.5 for patients wiht mechanical heart valves.CBC W/PLT COUNT & AUTO [id number] 13:10:00 Test Item Value Reference Range Comments WHITE BLOOD CELL COUNT (BEAKER) (test afpn=499) 19.7 K/ L 3.5-10.5 RED BLOOD CELL COUNT (BEAKER) (test dupe=026) 4.56 M/ L 3.93-5.22 HEMOGLOBIN (BEAKER) (test mnmp=008) 14.3 GM/DL 11.2-15.7 HEMATOCRIT (BEAKER) (test gnbb=753) 41.6 % 34.1-44.9 MEAN CORPUSCULAR VOLUME (BEAKER) (test kqit=291) 91.2 fL 79.4-94.8 MEAN CORPUSCULAR HEMOGLOBIN (BEAKER) (test 31.4 pg 25.6-32.2 femp=754) MEAN CORPUSCULAR HEMOGLOBIN CONC (BEAKER) (test 34.4 GM/DL 32.2-35.5 inpz=480) RED CELL DISTRIBUTION WIDTH (BEAKER) (test 12.8 % 11.7-14.4 nlqd=530) PLATELET COUNT (BEAKER) (test kegg=755) 230 K/CU MM 150-450 MEAN PLATELET VOLUME (BEAKER) (test rcfp=731) 11.8 fL 9.4-12.3 NUCLEATED RED BLOOD CELLS (BEAKER) (test 0 /100 WBC 0-0 guyp=703) NEUTROPHILS RELATIVE PERCENT (BEAKER) (test 78 % eyfh=507) LYMPHOCYTES RELATIVE PERCENT (BEAKER) (test 11 % smzx=481) MONOCYTES RELATIVE PERCENT (BEAKER) (test 8 % jwkm=129) EOSINOPHILS RELATIVE PERCENT (BEAKER) (test 0 % ieiu=115) BASOPHILS RELATIVE PERCENT (BEAKER) (test 0 % sztl=142) NEUTROPHILS ABSOLUTE COUNT (BEAKER) (test 15.28 K/ L 1.56-6.13 ffwi=370) LYMPHOCYTES ABSOLUTE COUNT (BEAKER) (test 2.20 K/ L 1.18-3.74 ytyb=582) MONOCYTES ABSOLUTE COUNT (BEAKER) (test 1.50 K/ L 0.24-0.36 sbxg=173) EOSINOPHILS ABSOLUTE COUNT (BEAKER) (test 0.00 K/ L 0.04-0.36 zrpm=498) BASOPHILS ABSOLUTE COUNT (BEAKER) (test 0.07 K/ L 0.01-0.08 qzkh=430) IMMATURE GRANULOCYTES-RELATIVE PERCENT (BEAKER) 3 % 0-1 (test drbm=4076) MR, ABDOMEN, [id number] 17:43:00FINAL REPORT INDICATION:Biliary ductal dilatation on recent [...] MDReport Verified Date/Time: 01/26/2019 17:43:02 Reading Location: [address] Body Reading Room Electronically signed by: NILTON ULLOA M.D. on 2018 05:43 PMMR, BRAIN, [id number] 22:21:00[facility] protocol for operative planningFINAL REPORT MRI Brain [...] Right cerebral hemisphere extensive vasogenic edema with vbyqe-[id number] midline shift of 1 cm. Right centrum [...] CAMPUZANO MD on 2018 10:21 PMCT, CHEST, [id number] 17:33:00FINAL REPORT CT scan of the chest, [...] MDReport Verified Date/Time: 01/25/2019 17:33:44 Reading Location: [address] Body Reading Room CT, [id number] 17:33:00FINAL REPORT CT scan of the chest, [...] Uribe MDReport Verified Date/Time: 17:33:44 Reading Location: [facility] C013Y CT Body Reading Room VITAMIN B12 AND [id number] 08:41:00 Test Item Value Reference Range Comments VITAMIN B12 (BEAKER) (test ipve=867) 1496 pg/mL 213-816 FOLATE (BEAKER) (test umxk=388) 18.6 ng/mL >=7.0 CBC W/PLT COUNT & AUTO [id number] 08:21:00 Test Item Value Reference Range Comments WHITE BLOOD CELL COUNT (BEAKER) (test zffi=960) 8.6 K/ L 3.5-10.5 RED BLOOD CELL COUNT (BEAKER) (test bmnu=262) 4.15 M/ L 3.93-5.22 HEMOGLOBIN (BEAKER) (test ykkr=853) 12.9 GM/DL 11.2-15.7 HEMATOCRIT (BEAKER) (test ixsm=569) 38.2 % 34.1-44.9 MEAN CORPUSCULAR VOLUME (BEAKER) (test wafw=082) 92.0 fL 79.4-94.8 MEAN CORPUSCULAR HEMOGLOBIN (BEAKER) (test 31.1 pg 25.6-32.2 sleu=544) MEAN CORPUSCULAR HEMOGLOBIN CONC (BEAKER) (test 33.8 GM/DL 32.2-35.5 vrwy=366) RED CELL DISTRIBUTION WIDTH (BEAKER) (test 12.5 % 11.7-14.4 okqm=552) PLATELET COUNT (BEAKER) (test ypih=053) 208 K/CU MM 150-450 MEAN PLATELET VOLUME (BEAKER) (test ffvo=522) 12.0 fL 9.4-12.3 NUCLEATED RED BLOOD CELLS (BEAKER) (test 0 /100 WBC 0-0 oloo=489) NEUTROPHILS RELATIVE PERCENT (BEAKER) (test 81 % vmyl=416) LYMPHOCYTES RELATIVE PERCENT (BEAKER) (test 18 % vzup=813) MONOCYTES RELATIVE PERCENT (BEAKER) (test 1 % ozei=484) EOSINOPHILS RELATIVE PERCENT (BEAKER) (test 0 % pbey=322) BASOPHILS RELATIVE PERCENT (BEAKER) (test 0 % ezud=500) NEUTROPHILS ABSOLUTE COUNT (BEAKER) (test 6.92 K/ L 1.56-6.13 eefu=895) LYMPHOCYTES ABSOLUTE COUNT (BEAKER) (test 1.50 K/ L 1.18-3.74 rtma=138) MONOCYTES ABSOLUTE COUNT (BEAKER) (test 0.09 K/ L 0.24-0.36 wila=951) EOSINOPHILS ABSOLUTE COUNT (BEAKER) (test 0.00 K/ L 0.04-0.36 amvf=156) BASOPHILS ABSOLUTE COUNT (BEAKER) (test 0.01 K/ L 0.01-0.08 konm=447) IMMATURE GRANULOCYTES-RELATIVE PERCENT (BEAKER) 0 % 0-1 (test zgmj=8402) COMPREHENSIVE METABOLIC [id number] 07:18:00 Test Item Value Reference Range Comments TOTAL PROTEIN (BEAKER) 7.3 gm/dL 6.0-8.3 Specimen slightly (test pkbx=383) hemolyzed ALBUMIN (BEAKER) (test 3.8 g/dL 3.5-5.0 Specimen slightly fhrj=4924) hemolyzed ALKALINE PHOSPHATASE 49 U/L 40-150 (BEAKER) (test gpam=872) BILIRUBIN TOTAL (BEAKER) 0.3 mg/dL 0.2-1.2 Specimen slightly (test euia=258) hemolyzed SODIUM (BEAKER) (test 138 meq/L 136-145 chrx=357) POTASSIUM (BEAKER) (test 3.7 meq/L 3.5-5.1 Specimen slightly vcyi=731) hemolyzed CHLORIDE (BEAKER) (test 111 meq/L 98-107 caht=710) CO2 (BEAKER) (test 20 meq/L 22-29 iumj=423) BLOOD UREA NITROGEN 18 mg/dL 7-21 (BEAKER) (test gosz=595) CREATININE (BEAKER) (test 0.62 mg/dL 0.57-1.25 Specimen slightly tmdr=799) hemolyzed GLUCOSE RANDOM (BEAKER) 162 mg/dL 70-105 (test pvsi=061) CALCIUM (BEAKER) (test 8.1 mg/dL 8.4-10.2 wppd=707) AST (SGOT) (BEAKER) (test 16 U/L 5-34 Specimen slightly dhwh=686) hemolyzed ALT (SGPT) (BEAKER) (test 15 U/L 6-55 Specimen slightly gjny=266) hemolyzed EGFR (BEAKER) (test 97 mL/min/1.73 sq m ESTIMATED GFR IS NOT khda=4998) ACCURATE CREATININE CLEARANCE IN PREDICTING GLOMERULAR FILTRATION RATE. ESTIMATED GFR IS NOT APPLICABLE FOR DIALYSIS PATIENTS. TSH/FREE T4 IF [id number] 07:11:00 Test Item Value Reference Range Comments THYROID STIMULATING HORMONE (BEAKER) (test 0.39 uIU/mL 0.35-4.94 kxza=656) PROTHROMBIN [id number] 06:48:00 Test Item Value Reference Range Comments PROTIME (BEAKER) (test xjzi=067) 14.6 seconds 11.9-14.2 INR (BEAKER) (test isqy=164) 1.2 <=5.9 Effective 08/10/2018: PT Reference Range ChangeNew: 11.9-14.2 Previous: 11.7- 14.7RECOMMENDED COUMADIN/WARFARIN INR THERAPY RANGESSTANDARD DOSE: 2.0-3.0 Includes: PROPHYLAXIS for venous thrombosis, systemic embolization; TREATMENT for venous thrombosis and/or pulmonary embolus.HIGH RISK: Target INR is2.5-3.5 for patients wiht mechanical heart valves.
[2019-03-10] MEDS: DOCUSATE NA/SENNA CONC 1 TAB PO PRN (20:38)
[2019-03-10] MEDS: MELATONIN 3 MG TABLET PO SCH (20:38)
[2019-03-11 01:13] LABS: Urine Appearance CLEAR; Urine Bilirubin NEGATIVE (NEG); Urine Blood NEGATIVE (NEG); Urine Color YELLOW; Urine Glucose NEGATIVE (NEG); Urine Protein NEGATIVE (NEG); Urine Urobilinogen 0.2 mg/dL (0.2-1.0)
[2019-03-11 03:31] LABS: Urine Bacteria 20-50 /HPF (<20); Urine RBC <5 /HPF (NONE SEEN)
[2019-03-11 03:32] LABS: Calcium Oxalate Crystals- Ur FEW (NONE SEEN); Urine Culture Reflex Order NOT NEEDED; Urine Mucus 3+ /HPF (NONE SEEN)
[2019-03-11 06:35] LABS: Absolute Lymphocytes (CBC) 2.2 K/uL (0.7-4.9); Basophils % 0.1 % (0-1.3); Hematocrit 34.9 % (36.0-45.0); Lymphocytes % 15.4 % (15.3-44.8); MPV 9.4 fL (7.6-11.3); RBC Red Blood Cell Count 3.74 M/uL (3.86-4.86)
[2019-03-11 06:46] LABS: Albumin 2.6 g/dL (3.4-5.0); BUN Blood Urea Nitrogen 22 mg/dL (7-18); Bicarbonate 28 mmol/L (21-32); Glucose Level 100 mg/dL (74-106); Magnesium 2.2 mg/dL (1.8-2.4); Potassium 3.8 mmol/L (3.5-5.1); Prealbumin 26.7 mg/dL (20-40); Sodium Level 143 mmol/L (136-145)
[2019-03-11] MEDS: AMLODIPINE 10 MG TAB PO SCH (08:23)
[2019-03-11 09:05] LABS: Blood Morphology Comment NOT SEEN (NOT SEEN); Platelet Estimate ADEQ
[2019-03-11] MEDS: CLOTRIMAZOLE 1% CREAM 15 GM TOP SCH ×2 (09:27→18:57)
[2019-03-11] MEDS: CIPROFLOXACIN HCL 500 MG TAB PO SCH ×2 (10:47→18:57)
[2019-03-11] MEDS ORDERED: DIPHENHYDRAMINE 25 MG TAB/CAP PO PRN (14:10)
--- NOTE | 2019-03-11 14:37 | R.HP ---
FACILITY: [facility] ENCOUNTER DATE AND TIME: 03/11/2019 14:31 ([employer]) MR#: [id number] NAME GLENN ERNANDEZ ADDRESS: [address] [place] [address] CITY: [place] [address]IP [id number] PHONE: DATE OF : 1955 AGE: 63 SSN# [id number] GENDER: Female DEXTERITY Right-handed MARITAL STATUS RACE PRE-HOSPITAL LIVING SETTING 01 - Home (private home/apt. board/care, assisted living, jail, transitional living) PRE-HOSPITAL LIVING WITH Alone ENCOUNTER PHYSICIAN: Dr. Sawyer Rios M.D. REFERRING DOCTOR: Graciela Sal DATE OF ADMISSION: 03/11/2019 14:31 (Central Standard Time) REFERRING FACILITY [facility] HOME TYPE AND DETAILS: Type of home: single family house # of levels in the residence: 1 # of steps to enter the residence: 0 # of steps within the residence: 0 ADMISSION DIAGNOSIS: Brain Mass Intracranial Hemorrhage Right [place] Infarct ONSET DATE: 01/25/2019 PRIMARY DIAGNOSIS-RELATED SURGERIES: Craniotomy/Craniectomy, Excision Tumor - performed by Graciela Sal on 01/31/2019 SECONDARY/COMORBID DIAGNOSES (TIERED): - N/A Anemia HX of Stroke meningioma Cerebral Edema Intracranial Hemorrhage Hemiparesis ESSENTIAL HYPERTENSION Brain Mass HISTORY OF PRESENT ILLNESS (HPI): Pt. is a 63 yo Right-handed female. On 01/25/2019 she was admitted to [facility] with diagnosis Brain Mass. Her impairment category is Brain Dysfunction 02 - Non-traumatic Brain Dysfunction (02.1). Pre-morbidly, Pt. was independent/mod-I in Locomotion, Safety Awareness, Balance, Social Cognition, T ransfers Control, Sphincter Control, Self-Care, Communication, and Endurance; and she had good Locomo tion, Safety Awareness, Balance, Social Cognition, Transfers Control, Sphincter Control, Self-Care, C ommunication, and Endurance. Currently, she has deficits of Locomotion, Balance, Safety Awareness, Transfers Control, Self-Care, E ndurance, and Communication. Pt. is now referred to [facility] for acute in-patient rehabilitation in order to maximize patient's functional independence in activities of daily living, strength, ROM, and mobi lity. Patient has realistic goal of being discharged at assistance level 6-Danielle to reside at Home with Fam adriana/Relatives. Glenn Ernandez is a 63 year old female that lives alone in a single nuzhat home. She was independent with all ADLs and self care. 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 Postoperative she had infarct on the right JULIO territory and possible amyloid angiopathy and was discharge to Inpatient rehab. On 03/05/2019, she complained of headache and feeling bad and Ct Scan revealed that she had slightly increased in the right to left midline shift in the region of the right frontal lobe and was admitted to [facility] and treated. She is now medically stable but in need of 24-hour nursing, doctor supervision and oversite while receiving participate in 3hours of therapy a day/15 hours per week and receive care with an intensive interdisciplinary approach. MEDICATION ALLERGIES: No Known Drug Allergies (NKDA) ENVIRONMENTAL ALLERGIES: None Known - Substance Allergies None Known - Other Allergies None Known PAST MEDICAL HISTORY: Anemia Brain Mass Cerebral Edema ESSENTIAL HYPERTENSION HX of Stroke Hemiparesis Intracranial Hemorrhage meningioma PAST SURGICAL HISTORY: CHOLECYSTECTOMY Oophorectomy FAMILY HISTORY: Family history is not contributory. SOCIAL HISTORY: - Home Living Alone REVIEW OF SYSTEMS: - Gen No Chills Fatigue No Fever - Eyes No Double Vision No itchiness - ENMT No Difficulty Swallowing - CVS No Chest Discomfort No Chest Pain Fatigue No Weight Gain - Resp No Cough No Shortness of Breath - GI Continent No Abdominal Pain No Constipation No Diarrhea - Continent No Kidney Pain No Painful Urination No Urinary Urgency - MSK No Joint Pain Muscle Cramps Stiffness - Skin No Itching No Rash No Suspicious Lesions - Neuro Coordination Difficulty Difficulty with Concentration No Memory Loss No Seizures Weakness - Psych Anxiety Depression No HIV Exposure No Persistent Infections No Seasonal Allergies - Endo No Cold/Heat Intolerance No Excessive Hunger No Excessive Thirst No Excessive Urination PHYSICAL EXAM - Gen Alert and awake Lying in bed No apparent distress Oriented to: person, time, and place - Skin No breakdown Normacephalic Scalp surgical site intact - Eyes No abnormalities - ENMT No abnormalities - Neck No abnormalities - CVS RRR - Chest No abnormalities - Resp Clear to auscultation - Abd + bowel sounds - GI Soft Deferred - No abnormalities - Ext no edema - MSK 3-4+/5 weakness in both lower extremities. - Neuro Diffuse weakness, incoordination and unsteady gait - Psych Moderate depression. VITAL SIGNS Temperature: 98.2 F SBP/DBP: 130/65 Pulse: 81 Resp: 16 NURSING: - Shower allowing shower - Bladder care per protocol - Skin care per protocol PRECAUTIONS: - Fall Precaution Bed alarm TABS alarm Wheel chair alarm ACTIVITIES OOB only with supervision QI SCORES: - Self-Care A. Eating 05-Setup or clean-up assistance B. Oral hygiene 05-Setup or clean-up assistance C. Toileting hygiene 03-Partial/moderate assistance E. Shower/bathe self 02-Substantial/maximal assistance F. Upper body dressing 03-Partial/moderate assistance G. Lower body dressing 02-Substantial/maximal assistance H. Putting on/taking off footwear 01-Dependent - Mobility A. Roll left and right 03-Partial/moderate assistance B. Sit to lying 02-Substantial/maximal assistance C. Lying to sitting on side of bed 02-Substantial/maximal assistance D. Sit to stand 02-Substantial/maximal assistance E. Chair/aja-zq-njmlh transfer 02-Substantial/maximal assistance F. Toilet transfer 02-Substantial/maximal assistance G. Car transfer 88-Not attempted due to medical condition or safety concerns I. Walk 10 feet 88-Not attempted due to medical condition or safety concerns J. Walk 50 feet with two turns 88-Not attempted due to medical condition or safety concerns K. Walk 150 feet 88-Not attempted due to medical condition or safety concerns L. Walking 10 feet on uneven surfaces 88-Not attempted due to medical condition or safety concerns M. 1 step (curb) 88-Not attempted due to medical condition or safety concerns N. 4 steps 88-Not attempted due to medical condition or safety concerns O. 12 steps 88-Not attempted due to medical condition or safety concerns P. Picking up object 88-Not attempted due to medical condition or safety concerns R. Wheel 50 feet with two turns 02-Substantial/maximal assistance S. Wheel 150 feet 02-Substantial/maximal assistance - Bladder and Bowel Bladder continence 0-Always continent Bowel continence 0-Always continent - Endurance Poor - Balance Poor - Safety Awareness Fair CURRENT FUNC. DEFICITS: Self-Care, Mobility, Endurance, Balance, and Safety Awareness MEDICATIONS: - Other See attached MAR (Medication Administration Record) Glenn Ernanedz.pdf ASSESSMENT: Pt. is a 63 yo Right-handed female.On 01/25/2019 she was admitted to [facility] with diagnosis Brain Mass.Her impairment category is Brain Dysfunction 02 - Non-trau matic Brain Dysfunction (02.1).Pre-morbidly, Pt. was independent/mod-I in Locomotion, Safety Awarenes s, Balance, Social Cognition, Transfers Control, Sphincter Control, Self-Care, Communication, and End urance; and she had good Locomotion, Safety Awareness, Balance, Social Cognition, Transfers Control, Sphincter Control, Self-Care, Communication, and Endurance.Currently, she has deficits of Locomotion, Balance, Safety Awareness, Transfers Control, Self-Care, Endurance, and Communication.Pt. is now ref erred to [facility] for acute in-patient rehabilitation in order to maximize p atient's functional independence in activities of daily living, strength, ROM, and mobility.- Rehab G oal Patient has realistic goal of being discharged at assistance level 6-Danielle to reside at Home with Fam adriana/Relatives. Glenn Ernandez is a 63 year old female that lives alone in a single nuzhat home. She was independent with all ADLs and self care. 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 Postoperative she had infarct on the right JULIO territory and possible amyloid angiopathy and was discharge to Inpatient rehab. On 03/05/2019, she complained of headache and feeling bad and Ct Scan revealed that she had slightly increased in the right to left midline shift in the region of the right frontal lobe and was admitted to [facility] and treated. She is now medically stable but in need of 24-hour nursing, doctor supervision and oversite while receiving participate in 3hours of therapy a day/15 hours per week and receive care with an intensive interdisciplinary approach.REHAB PLAN: for Dementia, TBI, Stroke, or others - Physical Therapy Gait dysfunction - to improve, our physical therapists will perform initial evaluation of pt's status upon admission and devise an individualized program for Gait Training, and Wheel Chair mobility Inability to transfer - to improve, our physical therapists will perform initial evaluation of pt's s tatus upon admission and devise an individualized program for Bed mobility Need for home safety evaluation - to improve, our physical therapists will perform initial evaluation of pt's status upon admission and devise an individualized program for Home Evaluation Need in caregiver upon discharge - to improve, our physical therapists will perform initial evaluatio n of pt's status upon admission and devise an individualized program for Caregiver Training New precaution - to improve, our physical therapists will perform initial evaluation of pt's status u jakob admission and devise an individualized program for Patient precaution education Poor balance - to improve, our physical therapists will perform initial evaluation of pt's status upo n admission and devise an individualized program for Balance Training Poor endurance - to improve, our physical therapists will perform initial evaluation of pt's status u jakob admission and devise an individualized program for Endurance Training Weakness - to improve, our physical therapists will perform initial evaluation of pt's status upon ad mission and devise an individualized program for Aquatic Therapy, Neuromuscular Reeducation, and Stre ngthening Achieving independence - to improve, our physical therapists will perform initial evaluation of pt's status upon admission and devise an individualized program for Community Reintegration Activities - Occupational Therapy ADL deficits - to improve, our occupation therapists will perform initial evaluation of pt's status u jakob admission and devise an individualized program for Bathing, Bed mobility, Community Reintegration , Cooking, Dressing, Eating, Fine Motor Skills, Grooming, Homemaking, Kitchen Mobility, Laundry, Kayli ent Education, Safety Awareness, Splinting - Positioning, Transfers(Toilet, Tub, Shower), and Wheel C hair Management Need for career portals teacher - to improve, our occupation therapists will perform initial evaluation of pt's s tatus upon admission and devise an individualized program for Caregiver Training Weakness - to improve, our occupation therapists will perform initial evaluation of pt's status upon admission and devise an individualized program for Aquatic Therapy, Balance, Endurance, UE ROM, and U E strengthening MEDICAL PLAN: - Diet Type Start Regular - Diet - Liquid Texture Start Regular - Tube Feed Start N/A - Bladder care per protocol - Fall Precaution Bed alarm TABS alarm Wheel chair alarm - Skin care per protocol - Other See attached MAR (Medication Administration Record) See attached MAR (Medication Administration Record) Glenn Ernandez.pdf - Diet - Solid Texture Regular - Shower shower DISCHARGE PLAN: - Estimated Length of Stay (days) 13. - Consensus on plan Discharge plan has been discussed with primary caregiver. Patient/Family is in agreement with the gavino n. Primary caregiver is in agreement with the plan. - Patient/Family Goals Return home with assistance. - Planned Living Setting Upon Discharge Home, to live with Family/Relatives. Transitional Living. 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
--- NOTE | 2019-03-11 14:39 | PAPE ---
PATIENT: [facility] MR# [id number] REFERRING DOCTOR Graciela Sal EVALUATION DATE AND TIME 03/11/2019 14:36 (SQL SERVER CONSULTANT) NAME GLENN WALKER DATE OF 1955 AGE 63 PHONE N# [id number] GENDER female EVALUATING PHYSICIAN Dr. Sawyer Rios M.D. ADMISSION DIAGNOSIS: Brain Mass Intracranial Hemorrhage Right [place] [facility] O[place]ET DATE 01/25/2019 SECONDARY/COMORBID DIAGNOSES TIERED: - N/A Anemia HX of Stroke meningioma Cerebral Edema Intracranial Hemorrhage Hemiparesis ESSENTIAL HYPERTENSION Brain Mass POST-ADMISSION FUNCTIONAL/MEDICAL STATUS: - Bladder Same accident frequency: Ind - No accidents in the past 7 days - Bowel Same accident frequency: Ind - No accidents in the past 7 days - Walking Same score based on distance walked: 0(N/A) - Wheelchair Same score based on distance traveled: 0(N/A) Same score based on distance traveled: 3(>=150ft) STATUS CHANGE EVALUATION: No change in Functional or Medical Status is identified compared with Pre-Admission screening. PATIENT NEEDS CLOSE MEDICAL SUPERVISION BY A REHABILITATION PHYSICIAN FOR: Coordination of Treatment Team Medical and Co-Morbidity Management Wound Care PATIENT REQUIRES 24X7 REHAB NURSING FOR MEDICAL AND FUNCTIONAL MGT. OF THE FOLLOWING DEFICITS: Disease Management Medication Management Patient/Family Education Providing Safe Environment Skin Integrity PATIENT REQUIRES INTENSIVE, COORDINATED INTERDISCIPLINARY APPROACH TO REHAB: Arranging Home Equipment/Services Discharge Planning Family Intervention/Training Basketballs And Footballs Reverser/Case Management LIST OF IDENTIFIED AND POTENTIAL PROBLEMS: Alteration in leisure activities Bladder, Incontinence Blood Pressure, Hypertension/hypotension Issues Bowel, Incontinence Falls, Actual or Potential Infection, Actual or Potential Mobility Impaired Pain, Alteration in Comfort Self Care Deficit Skin Integrity, Actual or Potential Urinary Tract Infection (UTI), Actual or Potential PATIENT COULD BE AT RISK FOR COMPLICATIONS FROM ADVERSE MEDICAL CONDITIONS DUE TO HIS/HER COMORBIDITI ES AND THE RIGORS OF THE INTENSIVE REHABILLITATION PROGRAM. METHODS OR INTERVENTIONS TO AVOID COMPLIC ATIONS INCLUDE: - Bleeding Assess lab values and manage abnormalities. Nursing to teach precautions for anti-coagulation therapy . Stroke patients assessed for lethargy or change in status. Wound to be assessed every shift. - Infection Clinical staff to assess and manage the signs and symptoms of infection including fever, redness, war mth, etc. - Urinary Tract Infection - Aspiration Clinical staff will assess and manage coughing, drooling, congestion. - Falls Patient will be evaluated for Fall Precautions and will be placed on Fall Precautions as indicated pe r protocol. - Skin Breakdown Nursing will assess skin daily using assessment tool and will place on Skin Breakdown Precautions as indicated per protocol. - Pain Clinical staff may employ non-medication methods such as massage, distraction, decrease stimulus, etc . as needed. Clinical staff will assess patient's pain level every shift per protocol to assess and e nsure pain management effectiveness. Medications will be given and the pain level re-assessed. PRELIMINARY PLAN OF CARE: - Physical Therapy Patient needs Physical Therapy for a daily minimum of 1.5 hours at least 5 out of 7 days, to improve: Mobility, Strengthening, Transfers, Stretching, ROM, Endurance, Ability to manage stairs, Gait, and Balance. - Speech Therapy Patient needs Speech Therapy for a daily minimum of 0.5 hours at least 5 out of 7 days, to improve: S wallowing, Cognition, Language Skills, and Compensatory Strategies. - Rehabilitation Nursing Patient requires 24x7 Rehabilitation Nursing for: Pain Issues, Identifying and preventing risk factor s, Monitoring and reporting current medical conditions, Assisting with ambulation and transfer, Kassie ting with all ADL-s, Teaching patients about disease process and medications, Family teaching, Provid ing safe environment, Bowel and Bladder Issues, Skin Integrity, and Medication Management. Patient needs Basketballs And Footballs Reverser and/or Case Management for: Discharge Planning, Arranging Home Equipmen t or Services, and Family Interventions. - Dietary and Nutrition Services Patient needs Dietary and Nutrition Services for: Adequate Nutrition, Nutritional Supplements, and Nu tritional Education. - Occupational Therapy Patient needs Occupational Therapy for a daily minimum of 1.5 hours at least 5 out of 7 days, to impr ove Activities of Daily Living, including: Eating, Grooming, Bathing, Dressing, Toileting, Toilet Tra nsfers, Community Reintegration, Higher functional activities, Adaptive Equipment, Splinting, Househo ld Tasks, and Other activities as determined. QI SCORES: - Self-Care A. Eating 05-Setup or clean-up assistance B. Oral hygiene 05-Setup or clean-up assistance C. Toileting hygiene 03-Partial/moderate assistance E. Shower/bathe self 02-Substantial/maximal assistance F. Upper body dressing 03-Partial/moderate assistance G. Lower body dressing 02-Substantial/maximal assistance H. Putting on/taking off footwear 01-Dependent - Mobility A. Roll left and right 03-Partial/moderate assistance B. Sit to lying 02-Substantial/maximal assistance C. Lying to sitting on side of bed 02-Substantial/maximal assistance D. Sit to stand 02-Substantial/maximal assistance E. Chair/ypn-vc-yfabe transfer 02-Substantial/maximal assistance F. Toilet transfer 02-Substantial/maximal assistance G. Car transfer 88-Not attempted due to medical condition or safety concerns I. Walk 10 feet 88-Not attempted due to medical condition or safety concerns J. Walk 50 feet with two turns 88-Not attempted due to medical condition or safety concerns K. Walk 150 feet 88-Not attempted due to medical condition or safety concerns L. Walking 10 feet on uneven surfaces 88-Not attempted due to medical condition or safety concerns M. 1 step (curb) 88-Not attempted due to medical condition or safety concerns N. 4 steps 88-Not attempted due to medical condition or safety concerns O. 12 steps 88-Not attempted due to medical condition or safety concerns P. Picking up object 88-Not attempted due to medical condition or safety concerns R. Wheel 50 feet with two turns 02-Substantial/maximal assistance S. Wheel 150 feet 02-Substantial/maximal assistance - Bladder and Bowel Bladder continence 0-Always continent Bowel continence 0-Always continent - Endurance Poor - Balance Poor - Safety Awareness Fair POTENTIAL FUNCTIONAL GOALS FOR PATIENT TO ACHIEVE BY DISCHARGE: - Safety Precaution Patient will remain free from falls or injury at time of discharge. - Bed Mobility Patient will perform bed mobility at 4-Paresh level of assistance. - Transfers Patient will complete transfers from bed to chair at 4-Paresh level of assistance. - Mobility Patient will ambulate 150 ft with 4-Paresh level of assistance with RW. PATIENT REHAB POTENTIAL Ephraim WALKER is able and expected to receive 3 hours of individualized therapy daily on at least 5 of e very 7 days Ephraim WALKER's prognosis for significant practical improvement within a reasonable period of time appea rs Good Expected level of measurable improvement will be of a practical value to Ephraim WALKER's functional capa city or adaptations to impairments Has a viable Discharge Plan Medically appropriate; condition is sufficiently stable to participate in intensive rehab program DISCHARGE PLAN: - Estimated Length of Stay (days) 13. - Consensus on plan Discharge plan has been discussed with primary caregiver. Patient/Family is in agreement with the gavino n. Primary caregiver is in agreement with the plan. - Patient/Family Goals Return home with assistance. - Planned Living Setting Upon Discharge Home, to live with Family/Relatives. Transitional Living. CONCLUSION ON REHABILITATION NECESSITY: I have evaluated patient's pre-admission functional status and, comparing it to the patient's post-ad mission functional status now, I conclude that the pre-admission assessment was accurate. Patient's c ondition on admission supports the medical necessity of admission to IRF. It is safe to proceed with patient's therapy program. 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
[2019-03-11] MEDS: ENOXAPARIN 40 MG/0.4 ML SQ SCH (17:09)
[2019-03-11] MEDS: MELATONIN 3 MG TABLET PO SCH (18:57)
--- NOTE | 2019-03-11 20:57 | HP ---
Date of Admission: 03/11/2019 Chief Complaint: Weakness. History Of Present Illness: Ms. Ernandez is a pleasant 63-year-old female patient who had a stroke type of symptoms on January 25, 2019, was brought in to our hospital and had abnormal CAT scan of the head, was sent to [facility] in [place], where after further evaluation, she was treated and had surgery for removal of meningioma from the right side of her brain. She had 2 such lesions, they were removed. Patient had a stroke also during that hospitalization affected her causing left-sided weakness. She was brought in to our rehab floor and she was recovering well, but then last week she had 2 CAT scans done, one on March 01, which showed some cerebral edema without any midline shift and we started her on oral dexamethasone and then on March 05, we did another CAT scan as she was complaining of pain and pressure behind her right eye and this repeat CAT scan showed slight progression of cerebral edema with 3 mm midline shift. There was no hemorrhage. With this finding, decision was made to transfer her to [place] to [facility] and after I talked to the physician, she was transferred via ground ambulance. She was sent back to our rehab floor and she came in a private car yesterday evening and I saw her this morning. She did not require any surgical intervention during this hospitalization. She will be started on IV dexamethasone prior to we discharge her on March 05 and her dexamethasone was discontinued in [place]. She denies any headache. Her pressure type of feeling behind her right eye is significantly better and it is negligible as she described this morning. No nausea, vomiting. No visual complaints. Medications: List reviewed. 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 All other systems reviewed and negative. Allergies: NO KNOWN ALLERGIES. Medications: Prior to her hospitalization on outpatient basis, she was on amlodipine 10 mg daily, aspirin 325 mg daily, atorvastatin 20 mg daily with evening meal and Lexapro 5 mg daily with breakfast. Past Medical History: Significant for stroke, hypertension, hyperlipidemia, osteoporosis. Past Surgical History: Breast biopsy, cholecystectomy, removal of ovarian cyst , and surgery for removal of meningioma from brain done in January 2019. Family History: Father , had myocardial infarction and diabetes. Mother , had hypertension, osteoporosis, and stroke. Brother , had pancreas cancer, cirrhosis of liver, and heart disease. Sister and had a breast cancer. Social History: Negative for smoking and alcohol use. Physical Examination: Vital Signs: Reviewed. Height 5 feet 2 inches, weight 114 pounds, temperature 96.8, pulse 85, blood pressure 135/72, respiratory rate 16. General: Awake, alert, oriented, not in distress. HEENT: Head atraumatic, normocephalic. Conjunctivae nonerythematous. Sclerae white. Mouth, no thrush or edema noted. Ears/Nose, no mass, lesion, discharge noted. Neck: Supple. No JVD, lymph nodes, bruit, thyromegaly noted. Lungs: Bilateral good equal air entry. Clear to auscultation. No rhonchi. No rales. Heart: Normal heart sounds, no murmur or gallop. Abdomen: Soft, bowel sounds normal. No guarding, rigidity, tenderness, mass, hepatosplenomegaly, distention, or bruit noted. Extremities: No leg edema. No calf tenderness. Skin: No rash, ulcer, cellulitis. Lymphatics: No lymph node enlargement in neck, supraclavicular, infraclavicular region. Neuro: No focal neurological deficit. Chest: Unremarkable. External Genitalia: Deferred. Rectal: Deferred. WATER AND FIRE TECHNICIAN: Patient has left-sided hemiparesis with power in left upper extremity and left lower extremity 3 to 4/5. Laboratory Data: Reviewed. Urinalysis is abnormal consistent with urinary tract infection. WBC 14.6, hemoglobin 11.6, platelets 270, sodium 143, potassium 3.8, chloride 111, bicarb 28, BUN 22, creatinine 0.40, glucose 100. Impression: 1. Stroke with left-sided hemiparesis. 2. Cerebral edema, resolved. 3. Meningioma, status post surgery. 4. Hypertension. 5. Hyperlipidemia. 6. Osteoporosis. Plan: We will go ahead and admit her to rehab floor. We will continue her blood pressure medications. Monitor vital signs, make adjustment on antihypertensive medication if necessary. DVT prophylaxis will be given using Lovenox 40 mg subcutaneous injection daily. This is what she was getting at outside facility. Her steroid medication was discontinued at outside facility, so there is no need to continue that. Dr. Rios will provide physical therapy while on the rehab floor and her urinalysis is abnormal consistent with urinary tract infection while waiting on the urine culture. We will start oral antibiotics, Cipro 500 mg 2 times a day. I have requested nursing staff to obtain discharge summary from this recent hospital admission stay in [place]. JULIO/LENCHO Voice ID: [id number] MTDD
[2019-03-12] MEDS: CIPROFLOXACIN HCL 500 MG TAB PO SCH ×2 (07:52→19:25)
[2019-03-12] MEDS: AMLODIPINE 10 MG TAB PO SCH (07:52)
[2019-03-12] MEDS: DULOXETINE 20 MG CAP PO SCH (07:52)
[2019-03-12] MEDS: CLOTRIMAZOLE 1% CREAM 15 GM TOP SCH ×2 (07:53→19:30)
--- NOTE | 2019-03-12 13:49 | PN ---
Date of Progress Note: 03/12/2019 Subjective: Patient was seen this morning for followup. No new complaints or problems reported by gianna tonifranco except she reported this morning that she has trouble sleeping last night. She was feeling lo faina and could not sleep, so she ended up calling her daughter at 3 o'clock in the morning and asked her daughter to come here. No other complaints reported. Objective: Vital Signs: Reviewed. HEENT: Unremarkable. Lungs: Clear to auscultation. Heart: Sounds normal. Abdomen: Soft. Bowel sounds normal. No guarding, rigidity, tenderness, or distention. Extremities: No leg edema. Impression: 1.Insomnia. 2.Stroke. 3.Meningioma. 4.Hypertension. Plan: Continue DVT prophylaxis and antihypertensive medication and we will start her on alprazolam 0 .25 mg p.o. at bedtime starting tonight and see how she responds to that. She also has little bit an xiety problem as reported by patient's daughter and we will see how the Xanax will help her with inso mnia and anxiety problem. JULIO/MODL Voice ID: [id number] Report ID: [id number]
[2019-03-12] MEDS: ENOXAPARIN 40 MG/0.4 ML SQ SCH (16:50)
[2019-03-12] MEDS: ALPRAZOLAM 0.25 MG TABLET PO SCH (19:25)
[2019-03-12] MEDS: MELATONIN 3 MG TABLET PO SCH (19:25)
[2019-03-12] MEDS: MAGNESIUM OXIDE 400 MG TAB PO SCH (20:35)
[2019-03-13] MEDS: CLOTRIMAZOLE 1% CREAM 15 GM TOP SCH ×2 (08:00→20:24)
[2019-03-13] MEDS: AMLODIPINE 10 MG TAB PO SCH (08:59)
[2019-03-13] MEDS: DULOXETINE 20 MG CAP PO SCH (08:59)
[2019-03-13] MEDS: CIPROFLOXACIN HCL 500 MG TAB PO SCH ×2 (08:59→20:23)
[2019-03-13] MEDS: ENOXAPARIN 40 MG/0.4 ML SQ SCH (16:29)
--- NOTE | 2019-03-13 20:08 | R.PN ---
ENCOUNTER DATE AND TIME: 03/13/2019 19:48 (ENTERPRISE SECURITY ARCHITECT) NAME GLENN ERNANDEZ DATE OF : 1955 DATE OF ADMISSION: 03/11/2019 14:31 (ENTERPRISE SECURITY ARCHITECT) Brain MassIntracranial HemorrhageRight [place] InfarctCHIEF COMPLAINT: Left sided weakness and debility SUBJECTIVE: Pt denied any depression. Pt denied any Shortness of Breath. She denies headache or nausea. She is making fair progress with physical and occupational therapy. He r ADLs were performed with minimum assistance. VITAL SIGNS Temperature: 98.2 F SBP/DBP: 128/66 Pulse: 75 Resp: 16 MEDICATION ALLERGIES: No Known Drug Allergies (NKDA) ENVIRONMENTAL ALLERGIES: None Known - Substance Allergies None Known - Other Allergies None Known NURSING: - Shower allowing shower - Bladder care per protocol - Skin care per protocol PRECAUTIONS: - Fall Precaution Bed alarm TABS alarm Wheel chair alarm ACTIVITIES OOB only with supervision THERAPIES: - Occupational Therapy Cognitive Retraining. Visual Perceptual Training. - Dietary and Nutrition Adequate Nutrition. Nutritional Education. Nutritional Supplements. - Speech Therapy Cognitive Training. Expressive Language Skills. Memory Strategies. Receptive Language Skills. Speech Intelligibility Training. PHYSICAL EXAM - Gen Alert and awake Lying in bed No apparent distress Oriented to: person, time, and place - Skin No breakdown Normacephalic Scalp surgical site intact - Eyes No abnormalities - ENMT No abnormalities - Neck No abnormalities - CVS RRR - Chest No abnormalities - Resp Clear to auscultation - Abd + bowel sounds - GI Soft Deferred - No abnormalities - Ext no edema - MSK 3-4+/5 weakness in both lower extremities. - Neuro Diffuse weakness, incoordination and unsteady gait - Psych Moderate depression. ASSESSMENT: Pt. is a 63 yo Right-handed female.On 01/25/2019 she was admitted to [facility] with diagnosis Brain Mass.Her impairment category is Brain Dysfunction 02 - Non-trau matic Brain Dysfunction (02.1).Pre-morbidly, Pt. was independent/mod-I in Locomotion, Safety Awarenes s, Balance, Social Cognition, Transfers Control, Sphincter Control, Self-Care, Communication, and End urance; and she had good Locomotion, Safety Awareness, Balance, Social Cognition, Transfers Control, Sphincter Control, Self-Care, Communication, and Endurance.Currently, she has deficits of Locomotion, Balance, Safety Awareness, Transfers Control, Self-Care, Endurance, and Communication.Pt. is now ref erred to [facility] for acute in-patient rehabilitation in order to maximize p atient's functional independence in activities of daily living, strength, ROM, and mobility.- Rehab G oal Patient has realistic goal of being discharged at assistance level 6-Danielle to reside at Home with Fam adriana/Relatives. MDM/PLAN: - Physical Therapy Gait dysfunction - to improve, our physical therapists will perform initial evaluation of pt's statu s upon admission and devise an individualized program for Gait Training, and Wheel Chair mobility Inability to transfer - to improve, our physical therapists will perform initial evaluation of pt's status upon admission and devise an individualized program for Bed mobility Need for home safety evaluation - to improve, our physical therapists will perform initial evaluatio n of pt's status upon admission and devise an individualized program for Home Evaluation Need in caregiver upon discharge - to improve, our physical therapists will perform initial evaluati on of pt's status upon admission and devise an individualized program for Caregiver Training New precaution - to improve, our physical therapists will perform initial evaluation of pt's status upon admission and devise an individualized program for Patient precaution education Poor balance - to improve, our physical therapists will perform initial evaluation of pt's status up on admission and devise an individualized program for Balance Training Poor endurance - to improve, our physical therapists will perform initial evaluation of pt's status upon admission and devise an individualized program for Endurance Training Weakness - to improve, our physical therapists will perform initial evaluation of pt's status upon a dmission and devise an individualized program for Aquatic Therapy, Neuromuscular Reeducation, and Str engthening Achieving independence - to improve, our physical therapists will perform initial evaluation of pt's status upon admission and devise an individualized program for Community Reintegration Activities - Occupational Therapy ADL deficits - to improve, our occupation therapists will perform initial evaluation of pt's status upon admission and devise an individualized program for Bathing, Bed mobility, Community Reintegratio n, Cooking, Dressing, Eating, Fine Motor Skills, Grooming, Homemaking, Kitchen Mobility, Laundry, Pat ient Education, Safety Awareness, Splinting - Positioning, Transfers(Toilet, Tub, Shower), and Wheel Chair Management Need for critical care technician - to improve, our occupation therapists will perform initial evaluation of pt's status upon admission and devise an individualized program for Caregiver Training Weakness - to improve, our occupation therapists will perform initial evaluation of pt's status upon admission and devise an individualized program for Aquatic Therapy, Balance, Endurance, UE ROM, and UE strengthening - Other See attached MAR (Medication Administration Record) Glenn Ernandez.pdf See attached MAR (Medication Administration Record) Glenn Ernandez.pdf See attached MAR (Medication Administration Record) - Diet Type Continue Regular - Diet - Liquid Texture Continue Regular - Tube Feed Continue N/A - Bladder care per protocol - Fall Precaution Bed alarm TABS alarm Wheel chair alarm - Skin care per protocol - Diet - Solid Texture Continue Regular - Shower allowing shower for Dementia, TBI, Stroke, or others FUNCTIONAL STATUS: UPDATED AT WEEKLY TEAM CONFERENCE - Bladder Same accident frequency: 7-Ind - No accidents in the past 7 days - Bowel Same accident frequency: 7-Ind - No accidents in the past 7 days - Walking Same score based on distance walked: 0(N/A) - Wheelchair Same score based on distance traveled: 0(N/A) Same score based on distance traveled: 3(>=150ft) FUNCTIONAL STATUS: - Self-Care A. Eating Danielle B. Grooming Paresh C. Bathing modA D. Dressing - Upper modA E. Dressing - Lower Paresh F. Toileting modA - Sphincter Control G. Bladder control modA H. Bowel control Paresh - Transfers Control I. Bed/Chair/Wheelchair maxA J. Toilet maxA K. Tub/Shower maxA - Locomotion L. Walk/Wheelchair (B) maxA M. Stairs ADNO - Communication N. Comprehension (B) Paresh O. Expression (B) Paresh - Social Cognition P. Social Interaction sup Q. Problem Solving sup R. Memory sup - Endurance Good - Balance Good - Safety Awareness Good QI SCORES: - Self-Care A. Eating 05-Setup or clean-up assistance B. Oral hygiene 05-Setup or clean-up assistance C. Toileting hygiene 03-Partial/moderate assistance E. Shower/bathe self 02-Substantial/maximal assistance F. Upper body dressing 03-Partial/moderate assistance G. Lower body dressing 02-Substantial/maximal assistance H. Putting on/taking off footwear 01-Dependent - Mobility A. Roll left and right 03-Partial/moderate assistance B. Sit to lying 02-Substantial/maximal assistance C. Lying to sitting on side of bed 02-Substantial/maximal assistance D. Sit to stand 02-Substantial/maximal assistance E. Chair/iru-oq-bphju transfer 02-Substantial/maximal assistance F. Toilet transfer 02-Substantial/maximal assistance G. Car transfer 88-Not attempted due to medical condition or safety concerns I. Walk 10 feet 88-Not attempted due to medical condition or safety concerns J. Walk 50 feet with two turns 88-Not attempted due to medical condition or safety concerns K. Walk 150 feet 88-Not attempted due to medical condition or safety concerns L. Walking 10 feet on uneven surfaces 88-Not attempted due to medical condition or safety concerns M. 1 step (curb) 88-Not attempted due to medical condition or safety concerns N. 4 steps 88-Not attempted due to medical condition or safety concerns O. 12 steps 88-Not attempted due to medical condition or safety concerns P. Picking up object 88-Not attempted due to medical condition or safety concerns R. Wheel 50 feet with two turns 02-Substantial/maximal assistance S. Wheel 150 feet 02-Substantial/maximal assistance - Bladder and Bowel Bladder continence 0-Always continent Bowel continence 0-Always continent - Endurance Poor - Balance Poor - Safety Awareness Fair CURRENT FUNC. DEFICITS: Self-Care, Mobility, Endurance, Balance, and Safety Awareness SIGNATURE PANEL: (ENTERPRISE SECURITY ARCHITECT)
[2019-03-13] MEDS: MAGNESIUM OXIDE 400 MG TAB PO SCH (20:24)
[2019-03-13] MEDS: ALPRAZOLAM 0.25 MG TABLET PO SCH (20:24)
[2019-03-13] MEDS: DOCUSATE NA/SENNA CONC 1 TAB PO PRN (20:25)
[2019-03-13] MEDS: MELATONIN 3 MG TABLET PO SCH (21:00)
--- NOTE | 2019-03-14 02:23 | PN ---
Date of Progress Note: 03/13/2019 Subjective: Patient was seen this morning for followup. She did use her alprazolam last night as pr escribed and slept better than the previous night. No trouble this morning reported by her. Objective: Vital Signs: Reviewed. HEENT: Unremarkable. Lungs: Clear to auscultation. Heart: Sounds normal. Abdomen: Soft. Bowel sounds normal. No guarding, rigidity, tenderness, or distention. Extremities: No leg edema. Laboratory Data: Urine culture growing E coli, sensitive to all antibiotics including Cipro. Impression: 1.Urinary tract infection. 2.Insomnia. 3.Stroke with left-sided hemiparesis. 4.Meningioma, brain. Plan: Continue current medications. Continue current antihypertensive medication and oral antibioti Byron cortez and I will see her tomorrow for followup. Physical therapy to be provided under guidance o hardy Rios. We will continue alprazolam per order. JULIO/MODL Voice ID: [id number] Report ID: [id number]
[2019-03-14] MEDS: CLOTRIMAZOLE 1% CREAM 15 GM TOP SCH ×2 (08:00→19:55)
[2019-03-14] MEDS: DULOXETINE 20 MG CAP PO SCH (08:16)
[2019-03-14] MEDS: AMLODIPINE 10 MG TAB PO SCH (08:16)
[2019-03-14] MEDS: CIPROFLOXACIN HCL 500 MG TAB PO SCH ×2 (08:17→19:54)
--- NOTE | 2019-03-14 10:28 | FAST ---
SHIFT START DATE/TIME: 03/14/2019 07:00 (PHOTOENGRAVER) SHIFT END DATE/TIME: 03/14/2019 19:00 (PHOTOENGRAVER) NAME GLENN WALKER DATE OF : 1955 DATE OF ADMISSION: 03/11/2019 14:31 (PHOTOENGRAVER) PHONE: AGE: 63 N# [id number] GENDER: Female ENCOUNTER PHYSICIAN: Dr. Sawyer Rios M.D. 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 - Stroke 01 - Other Stroke (01.9) Intracranial Hemorrhage. Right [place] Infarct. EATING: EATING - STEP 1: Does the patient complete the activity by him/herself with no assistance (physical, verbal/nonverbal cueing, setup/clean-up)? No. EATING - STEP 2: Does the patient need only setup/clean-up assistance from one helper? No. EATING - STEP 3: Does the patient need only verbal/nonverbal cueing or touching/steadying/contact guard assistance fro m one helper? Yes. 1. [id number] ADMISSION PERFORMANCE: Supervision or touching assistance CODE: 04 ORAL HYGIENE: ORAL HYGIENE - STEP 1: Does the patient complete the activity by him/herself with no assistance (physical, verbal/nonverbal cueing, setup/clean-up)? No. ORAL HYGIENE - STEP 2: Does the patient need only setup/clean-up assistance from one helper? No. ORAL HYGIENE - STEP 3: Does the patient need only verbal/nonverbal cueing or touching/steadying/contact guard assistance fro m one helper? Yes. 1. [id number] ADMISSION PERFORMANCE: Supervision or touching assistance CODE: 04 TOILETING HYGIENE: TOILETING HYGIENE - STEP 1: Does the patient complete the activity by him/herself with no assistance (physical, verbal/nonverbal cueing, setup/clean-up)? No. TOILETING HYGIENE - STEP 2: Does the patient need only setup/clean-up assistance from one helper? No. TOILETING HYGIENE - STEP 3: Does the patient need only verbal/nonverbal cueing or touching/steadying/contact guard assistance fro m one helper? No. TOILETING HYGIENE - STEP 4: Does the patient need physical assistance - for example lifting or trunk support from one helper - wi th the helper providing less than half of the effort? Yes. 1. [id number] ADMISSION PERFORMANCE: Partial/moderate assistance CODE: 03 BATHING: Not assessed/no information CODE: - DRESSING - UPPER BODY: Not assessed/no information CODE: - DRESSING - LOWER BODY: Not assessed/no information CODE: - PUTTING ON/TAKING OFF FOOTWEAR: Not assessed/no information CODE: - ROLL LEFT AND RIGHT: ROLL LEFT AND RIGHT - STEP 1: Does the patient complete the activity by him/herself with no assistance (physical, verbal/nonverbal cueing, setup/clean-up)? No. ROLL LEFT AND RIGHT - STEP 2: Does the patient need only setup/clean-up assistance from one helper? No. ROLL LEFT AND RIGHT - STEP 3: Does the patient need only verbal/nonverbal cueing or touching/steadying/contact guard assistance fro m one helper? No. ROLL LEFT AND RIGHT - STEP 4: Does the patient need physical assistance - for example lifting or trunk support from one helper - wi th the helper providing less than half of the effort? Yes. 1. [id number] ADMISSION PERFORMANCE: Partial/moderate assistance CODE: 03 SIT TO LYING: SIT TO LYING - STEP 1: Does the patient complete the activity by him/herself with no assistance (physical, verbal/nonverbal cueing, setup/clean-up)? No. SIT TO LYING - STEP 2: Does the patient need only setup/clean-up assistance from one helper? No. SIT TO LYING - STEP 3: Does the patient need only verbal/nonverbal cueing or touching/steadying/contact guard assistance fro m one helper? Yes. 1. [id number] ADMISSION PERFORMANCE: Supervision or touching assistance CODE: 04 LYING TO SITTING: LYING TO SITTING ON SIDE OF BED - STEP 1: Does the patient complete the activity by him/herself with no assistance (physical, verbal/nonverbal cueing, setup/clean-up)? No. LYING TO SITTING ON SIDE OF BED - STEP 2: Does the patient need only setup/clean-up assistance from one helper? No. LYING TO SITTING ON SIDE OF BED - STEP 3: Does the patient need only verbal/nonverbal cueing or touching/steadying/contact guard assistance fro m one helper? No. LYING TO SITTING ON SIDE OF BED - STEP 4: Does the patient need physical assistance - for example lifting or trunk support from one helper - wi th the helper providing less than half of the effort? Yes. 1. [id number] ADMISSION PERFORMANCE: Partial/moderate assistance CODE: 03 SIT TO STAND: SIT TO STAND - STEP 1: Does the patient complete the activity by him/herself with no assistance (physical, verbal/nonverbal cueing, setup/clean-up)? No. SIT TO STAND - STEP 2: Does the patient need only setup/clean-up assistance from one helper? No. SIT TO STAND - STEP 3: Does the patient need only verbal/nonverbal cueing or touching/steadying/contact guard assistance fro m one helper? No. SIT TO STAND - STEP 4: Does the patient need physical assistance - for example lifting or trunk support from one helper - wi th the helper providing less than half of the effort? Yes. 1. [id number] ADMISSION PERFORMANCE: Partial/moderate assistance CODE: 03 TRANSFERS: BED, CHAIR: CHAIR/QXF-PC-[id number] TRANSFER - STEP 1: Does the patient complete the activity by him/herself with no assistance (physical, verbal/nonverbal cueing, setup/clean-up)? No. CHAIR/[id number] TRANSFER - STEP 2: Does the patient need only setup/clean-up assistance from one helper? No. CHAIR/OIT-QA-[id number] TRANSFER - STEP 3: Does the patient need only verbal/nonverbal cueing or touching/steadying/contact guard assistance fro m one helper? No. CHAIR/[id number] TRANSFER - STEP 4: Does the patient need physical assistance - for example lifting or trunk support from one helper - wi th the helper providing less than half of the effort? Yes. 1. [id number] ADMISSION PERFORMANCE: Partial/moderate assistance CODE: 03 TRANSFER TOILET: TOILET TRANSFER - STEP 1: Does the patient complete the activity by him/herself with no assistance (physical, verbal/nonverbal cueing, setup/clean-up)? No. TOILET TRANSFER - STEP 2: Does the patient need only setup/clean-up assistance from one helper? No. TOILET TRANSFER - STEP 3: Does the patient need only verbal/nonverbal cueing or touching/steadying/contact guard assistance fro m one helper? No. TOILET TRANSFER - STEP 4: Does the patient need physical assistance - for example lifting or trunk support from one helper - wi th the helper providing less than half of the effort? Yes. 1. [id number] ADMISSION PERFORMANCE: Partial/moderate assistance CODE: 03 TRANSFERS: CAR: Not assessed/no information CODE: - WALK 10 FEET: Not assessed/no information CODE: - 1 STEP (CURB): Not assessed/no information CODE: - PICKING UP OBJECT: Not assessed/no information CODE: - DOES THE PATIENT USE A WHEELCHAIR/SCOOTER? CODE: EXPR WHEEL 50 FEET WITH TWO TURNS: Not assessed/no information CODE: - INDICATE THE TYPE OF WHEELCHAIR/SCOOTER USED: CODE: EXPR WHEEL 150 FEET: Not assessed/no information CODE: - INDICATE THE TYPE OF WHEELCHAIR/SCOOTER USED: CODE: EXPR BLADDER AND BOWEL: H350. BLADDER CONTINENCE (3-DAY ASSESSMENT PERIOD): Always continent (no documented incontinence) CODE: 0 H400. BOWEL CONTINENCE (3-DAY ASSESSMENT PERIOD): Always continent CODE: 0 SIGNATURE PANEL: The following modified sections: 1. [id number] Admission Performance, 1. [id number] Admission Performance, 1. [id number] Admission Performance, 1. [id number] Admission Performance, 1. [id number] Admission Performance, 1. [id number] Admission Performance, 1. [id number] Admission Performance, 1. [id number] Admission Performance , 1. [id number] Admission Performance, 1. [id number] Admission Performance, Code, H350. Bladder Continence (3-day assessment period), H400. Bowel Continence (3-day assessment period) were [electronically] sig jacquie by Joel Lim on WedMar 14 2019 10:27:27 GMT-0600 (Central Standard Time)
--- NOTE | 2019-03-14 11:02 | FAST ---
SHIFT START DATE/TIME: 03/13/2019 07:00 (ROTARY SURFACE GRINDER) SHIFT END DATE/TIME: 03/13/2019 19:00 (ROTARY SURFACE GRINDER) NAME GLENN WALKER DATE OF : 1955 DATE OF ADMISSION: 03/11/2019 14:31 (ROTARY SURFACE GRINDER) PHONE: AGE: 63 N# [id number] GENDER: Female ENCOUNTER PHYSICIAN: Dr. Sawyer Rios M.D. 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 - Stroke 01 - Other Stroke (01.9) Intracranial Hemorrhage. Right [place] Infarct. EATING: EATING - STEP 1: Does the patient complete the activity by him/herself with no assistance (physical, verbal/nonverbal cueing, setup/clean-up)? No. EATING - STEP 2: Does the patient need only setup/clean-up assistance from one helper? No. EATING - STEP 3: Does the patient need only verbal/nonverbal cueing or touching/steadying/contact guard assistance fro m one helper? Yes. 1. [id number] ADMISSION PERFORMANCE: Supervision or touching assistance CODE: 04 ORAL HYGIENE: ORAL HYGIENE - STEP 1: Does the patient complete the activity by him/herself with no assistance (physical, verbal/nonverbal cueing, setup/clean-up)? No. ORAL HYGIENE - STEP 2: Does the patient need only setup/clean-up assistance from one helper? No. ORAL HYGIENE - STEP 3: Does the patient need only verbal/nonverbal cueing or touching/steadying/contact guard assistance fro m one helper? Yes. 1. [id number] ADMISSION PERFORMANCE: Supervision or touching assistance CODE: 04 TOILETING HYGIENE: TOILETING HYGIENE - STEP 1: Does the patient complete the activity by him/herself with no assistance (physical, verbal/nonverbal cueing, setup/clean-up)? No. TOILETING HYGIENE - STEP 2: Does the patient need only setup/clean-up assistance from one helper? No. TOILETING HYGIENE - STEP 3: Does the patient need only verbal/nonverbal cueing or touching/steadying/contact guard assistance fro m one helper? No. TOILETING HYGIENE - STEP 4: Does the patient need physical assistance - for example lifting or trunk support from one helper - wi th the helper providing less than half of the effort? Yes. 1. [id number] ADMISSION PERFORMANCE: Partial/moderate assistance CODE: 03 BATHING: Not assessed/no information CODE: - DRESSING - UPPER BODY: Not assessed/no information CODE: - DRESSING - LOWER BODY: Not assessed/no information CODE: - PUTTING ON/TAKING OFF FOOTWEAR: Not assessed/no information CODE: - ROLL LEFT AND RIGHT: ROLL LEFT AND RIGHT - STEP 1: Does the patient complete the activity by him/herself with no assistance (physical, verbal/nonverbal cueing, setup/clean-up)? No. ROLL LEFT AND RIGHT - STEP 2: Does the patient need only setup/clean-up assistance from one helper? No. ROLL LEFT AND RIGHT - STEP 3: Does the patient need only verbal/nonverbal cueing or touching/steadying/contact guard assistance fro m one helper? No. ROLL LEFT AND RIGHT - STEP 4: Does the patient need physical assistance - for example lifting or trunk support from one helper - wi th the helper providing less than half of the effort? Yes. 1. [id number] ADMISSION PERFORMANCE: Partial/moderate assistance CODE: 03 SIT TO LYING: SIT TO LYING - STEP 1: Does the patient complete the activity by him/herself with no assistance (physical, verbal/nonverbal cueing, setup/clean-up)? No. SIT TO LYING - STEP 2: Does the patient need only setup/clean-up assistance from one helper? No. SIT TO LYING - STEP 3: Does the patient need only verbal/nonverbal cueing or touching/steadying/contact guard assistance fro m one helper? No. SIT TO LYING - STEP 4: Does the patient need physical assistance - for example lifting or trunk support from one helper - wi th the helper providing less than half of the effort? Yes. 1. [id number] ADMISSION PERFORMANCE: Partial/moderate assistance CODE: 03 LYING TO SITTING: LYING TO SITTING ON SIDE OF BED - STEP 1: Does the patient complete the activity by him/herself with no assistance (physical, verbal/nonverbal cueing, setup/clean-up)? No. LYING TO SITTING ON SIDE OF BED - STEP 2: Does the patient need only setup/clean-up assistance from one helper? No. LYING TO SITTING ON SIDE OF BED - STEP 3: Does the patient need only verbal/nonverbal cueing or touching/steadying/contact guard assistance fro m one helper? No. LYING TO SITTING ON SIDE OF BED - STEP 4: Does the patient need physical assistance - for example lifting or trunk support from one helper - wi th the helper providing less than half of the effort? Yes. 1. [id number] ADMISSION PERFORMANCE: Partial/moderate assistance CODE: 03 SIT TO STAND: SIT TO STAND - STEP 1: Does the patient complete the activity by him/herself with no assistance (physical, verbal/nonverbal cueing, setup/clean-up)? No. SIT TO STAND - STEP 2: Does the patient need only setup/clean-up assistance from one helper? No. SIT TO STAND - STEP 3: Does the patient need only verbal/nonverbal cueing or touching/steadying/contact guard assistance fro m one helper? No. SIT TO STAND - STEP 4: Does the patient need physical assistance - for example lifting or trunk support from one helper - wi the helper providing less than half of the effort? Yes. 1. [id number] ADMISSION PERFORMANCE: Partial/moderate assistance CODE: 03 TRANSFERS: BED, CHAIR: CHAIR/[id number] TRANSFER - STEP 1: Does the patient complete the activity by him/herself with no assistance (physical, verbal/nonverbal cueing, setup/clean-up)? No. CHAIR/[id number] TRANSFER - STEP 2: Does the patient need only setup/clean-up assistance from one helper? No. CHAIR/[id number] TRANSFER - STEP 3: Does the patient need only verbal/nonverbal cueing or touching/steadying/contact guard assistance fro m one helper? Yes. 1. [id number] ADMISSION PERFORMANCE: Supervision or touching assistance CODE: 04 TRANSFER TOILET: TOILET TRANSFER - STEP 1: Does the patient complete the activity by him/herself with no assistance (physical, verbal/nonverbal cueing, setup/clean-up)? No. TOILET TRANSFER - STEP 2: Does the patient need only setup/clean-up assistance from one helper? No. TOILET TRANSFER - STEP 3: Does the patient need only verbal/nonverbal cueing or touching/steadying/contact guard assistance fro m one helper? No. TOILET TRANSFER - STEP 4: Does the patient need physical assistance - for example lifting or trunk support from one helper - wi th the helper providing less than half of the effort? Yes. 1. [id number] ADMISSION PERFORMANCE: Partial/moderate assistance CODE: 03 TRANSFERS: CAR: Not assessed/no information CODE: - WALK 10 FEET: Not assessed/no information CODE: - 1 STEP (CURB): Not assessed/no information CODE: - PICKING UP OBJECT: Not assessed/no information CODE: - DOES THE PATIENT USE A WHEELCHAIR/SCOOTER? CODE: EXPR WHEEL 50 FEET WITH TWO TURNS: Not assessed/no information CODE: - INDICATE THE TYPE OF WHEELCHAIR/SCOOTER USED: CODE: EXPR WHEEL 150 FEET: Not assessed/no information CODE: - INDICATE THE TYPE OF WHEELCHAIR/SCOOTER USED: CODE: EXPR BLADDER AND BOWEL: H350. BLADDER CONTINENCE (3-DAY ASSESSMENT PERIOD): Always continent (no documented incontinence) CODE: 0 H400. BOWEL CONTINENCE (3-DAY ASSESSMENT PERIOD): Always continent CODE: 0 SIGNATURE PANEL: The following modified sections: 1. [id number] Admission Performance, 1. [id number] Admission Performance, 1. [id number] Admission Performance, 1. [id number] Admission Performance, 1. [id number] Admission Performance, 1. [id number] Admission Performance, 1. CE8635F Admission Performance, 1. [id number] Admission Performance , 1. [id number] Admission Performance, 1. NB6966M Admission Performance, Code, H350. Bladder Continence (3-day assessment period), H400. Bowel Continence (3-day assessment period) were [electronically] sig jacquie by Joel Lim on WedMar 14 2019 11:01:38 GMT-0600 (Central Standard Time)
[2019-03-14] MEDS: ENOXAPARIN 40 MG/0.4 ML SQ SCH (17:28)
--- NOTE | 2019-03-14 19:06 | PN ---
Date of Progress Note: 03/14/2019 Subjective: Patient was seen this morning for followup. No new complaints or problems reported by gianna alberto except she reported that last night she did not sleep and alprazolam, she did take it, but it did not help her last night, and she ended up calling her daughter again during middle of the night a s she was not sleeping. Objective: Vital Signs: Reviewed. HEENT: Unremarkable. Lungs: Clear to auscultation. Heart: Sounds normal. Abdomen: Soft. Bowel sounds normal. No guarding, rigidity, tenderness, or distention. Extremities: No leg edema. Impression: 1.Urinary tract infection. 2.Stroke. 3.Meningioma. 4.Hypertension. 5.Insomnia. Plan: We will continue current DVT prophylaxis using Lovenox. Continue current antibiotics, antihyp ertensive medication, and we will increase the dose of alprazolam from 0.25 mg to 0.5 mg at bedtime. JULIO/MODL Voice ID: [id number] Report ID: [id number]
[2019-03-14] MEDS: DOCUSATE NA/SENNA CONC 1 TAB PO PRN (19:53)
[2019-03-14] MEDS: MELATONIN 3 MG TABLET PO SCH (19:54)
[2019-03-14] MEDS: MAGNESIUM OXIDE 400 MG TAB PO SCH (19:54)
--- NOTE | 2019-03-14 21:37 | R.PN ---
ENCOUNTER DATE AND TIME: 03/14/2019 21:30 (COM WRITER) NAME GLENN ERNANDEZ DATE OF : 1955 DATE OF ADMISSION: 03/11/2019 14:31 (COM WRITER) Brain MassIntracranial HemorrhageRight [place] InfarctCHIEF COMPLAINT: Left sided weakness and debility SUBJECTIVE: Pt denied any depression. Pt denied any Shortness of Breath. She denies headache or nausea. She is making fair progress with physical and occupational therapy. He r ADLs were performed with minimum assistance. Ambulated 215' with moderate assistance using a rolling walker. On Cipro for UTI. VITAL SIGNS Temperature: 97.4 F SBP/DBP: 117/61 Pulse: 77 Resp: 16 MEDICATION ALLERGIES: No Known Drug Allergies (NKDA) ENVIRONMENTAL ALLERGIES: None Known - Substance Allergies None Known - Other Allergies None Known NURSING: - Shower allowing shower - Bladder care per protocol - Skin care per protocol PRECAUTIONS: - Fall Precaution Bed alarm TABS alarm Wheel chair alarm ACTIVITIES OOB only with supervision THERAPIES: - Occupational Therapy Cognitive Retraining. Visual Perceptual Training. - Dietary and Nutrition Adequate Nutrition. Nutritional Education. Nutritional Supplements. - Speech Therapy Cognitive Training. Expressive Language Skills. Memory Strategies. Receptive Language Skills. Speech Intelligibility Training. PHYSICAL EXAM - Gen Alert and awake Lying in bed No apparent distress Oriented to: person, time, and place - Skin No breakdown Normacephalic Scalp surgical site intact - Eyes No abnormalities - ENMT No abnormalities - Neck No abnormalities - CVS RRR - Chest No abnormalities - Resp Clear to auscultation - Abd + bowel sounds - GI Soft Deferred - No abnormalities - Ext no edema - MSK 3-4+/5 weakness in both lower extremities. - Neuro Diffuse weakness, incoordination and unsteady gait - Psych Moderate depression. ASSESSMENT: Pt. is a 63 yo Right-handed female.On 01/25/2019 she was admitted to [facility] with diagnosis Brain Mass.Her impairment category is Brain Dysfunction 02 - Non-trau matic Brain Dysfunction (02.1).Pre-morbidly, Pt. was independent/mod-I in Locomotion, Safety Awarenes s, Balance, Social Cognition, Transfers Control, Sphincter Control, Self-Care, Communication, and End urance; and she had good Locomotion, Safety Awareness, Balance, Social Cognition, Transfers Control, Sphincter Control, Self-Care, Communication, and Endurance.Currently, she has deficits of Locomotion, Balance, Safety Awareness, Transfers Control, Self-Care, Endurance, and Communication.Pt. is now ref erred to [facility] for acute in-patient rehabilitation in order to maximize p atient's functional independence in activities of daily living, strength, ROM, and mobility.- Rehab G oal Patient has realistic goal of being discharged at assistance level 6-Danielle to reside at Home with Fam adriana/Relatives. MDM/PLAN: - Physical Therapy Gait dysfunction - to improve, our physical therapists will perform initial evaluation of pt's statu s upon admission and devise an individualized program for Gait Training, and Wheel Chair mobility Inability to transfer - to improve, our physical therapists will perform initial evaluation of pt's status upon admission and devise an individualized program for Bed mobility Need for home safety evaluation - to improve, our physical therapists will perform initial evaluatio n of pt's status upon admission and devise an individualized program for Home Evaluation Need in caregiver upon discharge - to improve, our physical therapists will perform initial evaluati on of pt's status upon admission and devise an individualized program for Caregiver Training New precaution - to improve, our physical therapists will perform initial evaluation of pt's status upon admission and devise an individualized program for Patient precaution education Poor balance - to improve, our physical therapists will perform initial evaluation of pt's status up on admission and devise an individualized program for Balance Training Poor endurance - to improve, our physical therapists will perform initial evaluation of pt's status upon admission and devise an individualized program for Endurance Training Weakness - to improve, our physical therapists will perform initial evaluation of pt's status upon a dmission and devise an individualized program for Aquatic Therapy, Neuromuscular Reeducation, and Str engthening Achieving independence - to improve, our physical therapists will perform initial evaluation of pt's status upon admission and devise an individualized program for Community Reintegration Activities - Occupational Therapy ADL deficits - to improve, our occupation therapists will perform initial evaluation of pt's status upon admission and devise an individualized program for Bathing, Bed mobility, Community Reintegratio n, Cooking, Dressing, Eating, Fine Motor Skills, Grooming, Homemaking, Kitchen Mobility, Laundry, Pat ient Education, Safety Awareness, Splinting - Positioning, Transfers(Toilet, Tub, Shower), and Wheel Chair Management Need for manager of care - to improve, our occupation therapists will perform initial evaluation of pt's status upon admission and devise an individualized program for Caregiver Training Weakness - to improve, our occupation therapists will perform initial evaluation of pt's status upon admission and devise an individualized program for Aquatic Therapy, Balance, Endurance, UE ROM, and UE strengthening - Other See attached MAR (Medication Administration Record) Glenn Ernandez.pdf See attached MAR (Medication Administration Record) - Diet Type Continue Regular - Diet - Liquid Texture Continue Regular - Tube Feed Continue N/A - Bladder care per protocol - Fall Precaution Bed alarm TABS alarm Wheel chair alarm - Skin care per protocol - Diet - Solid Texture Continue Regular - Shower allowing shower for Dementia, TBI, Stroke, or others FUNCTIONAL STATUS: UPDATED AT WEEKLY TEAM CONFERENCE - Bladder Same accident frequency: 7-Ind - No accidents in the past 7 days - Bowel Same accident frequency: 7-Ind - No accidents in the past 7 days - Walking Same score based on distance walked: 0(N/A) - Wheelchair Same score based on distance traveled: 0(N/A) Same score based on distance traveled: 3(>=150ft) FUNCTIONAL STATUS: - Self-Care A. Eating Danielle B. Grooming Paresh C. Bathing modA D. Dressing - Upper modA E. Dressing - Lower Paresh F. Toileting modA - Sphincter Control G. Bladder control modA H. Bowel control Paresh - Transfers Control I. Bed/Chair/Wheelchair maxA J. Toilet maxA K. Tub/Shower maxA - Locomotion L. Walk/Wheelchair (B) maxA M. Stairs ADNO - Communication N. Comprehension (B) Paresh O. Expression (B) Paresh - Social Cognition P. Social Interaction sup Q. Problem Solving sup R. Memory sup - Endurance Good - Balance Good - Safety Awareness Good QI SCORES: - Self-Care A. Eating 05-Setup or clean-up assistance B. Oral hygiene 05-Setup or clean-up assistance C. Toileting hygiene 03-Partial/moderate assistance E. Shower/bathe self 02-Substantial/maximal assistance F. Upper body dressing 03-Partial/moderate assistance G. Lower body dressing 02-Substantial/maximal assistance H. Putting on/taking off footwear 01-Dependent - Mobility A. Roll left and right 03-Partial/moderate assistance B. Sit to lying 02-Substantial/maximal assistance C. Lying to sitting on side of bed 02-Substantial/maximal assistance D. Sit to stand 02-Substantial/maximal assistance E. Chair/xps-va-roind transfer 02-Substantial/maximal assistance F. Toilet transfer 02-Substantial/maximal assistance G. Car transfer 88-Not attempted due to medical condition or safety concerns I. Walk 10 feet 88-Not attempted due to medical condition or safety concerns J. Walk 50 feet with two turns 88-Not attempted due to medical condition or safety concerns K. Walk 150 feet 88-Not attempted due to medical condition or safety concerns L. Walking 10 feet on uneven surfaces 88-Not attempted due to medical condition or safety concerns M. 1 step (curb) 88-Not attempted due to medical condition or safety concerns N. 4 steps 88-Not attempted due to medical condition or safety concerns O. 12 steps 88-Not attempted due to medical condition or safety concerns P. Picking up object 88-Not attempted due to medical condition or safety concerns R. Wheel 50 feet with two turns 02-Substantial/maximal assistance S. Wheel 150 feet 02-Substantial/maximal assistance - Bladder and Bowel Bladder continence 0-Always continent Bowel continence 0-Always continent - Endurance Poor - Balance Poor - Safety Awareness Fair CURRENT FUNC. DEFICITS: Self-Care, Mobility, Endurance, Balance, and Safety Awareness SIGNATURE PANEL: (COM WRITER)
[2019-03-14] MEDS: ALPRAZOLAM 0.5 MG TABLET PO SCH (22:53)
[2019-03-15] MEDS: CLOTRIMAZOLE 1% CREAM 15 GM TOP SCH ×2 (08:00→20:54)
[2019-03-15] MEDS: DULOXETINE 20 MG CAP PO SCH (08:31)
[2019-03-15] MEDS: AMLODIPINE 10 MG TAB PO SCH (08:31)
[2019-03-15] MEDS: CIPROFLOXACIN HCL 500 MG TAB PO SCH ×2 (08:32→20:52)
--- NOTE | 2019-03-15 12:30 | FAST ---
ENCOUNTER DATE AND TIME: 03/15/2019 08:00 (TIMBER ROBBER) NAME GLENN WALKER DATE OF : 1955 DATE OF ADMISSION: 03/11/2019 14:31 (TIMBER ROBBER) PHONE: AGE: 63 N# [id number] GENDER: Female ENCOUNTER PHYSICIAN: Dr. Sawyer Rios M.D. 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 - Stroke 01 - Other Stroke (01.9) Intracranial Hemorrhage. Right [place] Infarct. EATING: Not assessed/no information CODE: - ORAL HYGIENE: ORAL HYGIENE - STEP 1: Does the patient complete the activity by him/herself with no assistance (physical, verbal/nonverbal cueing, setup/clean-up)? No. ORAL HYGIENE - STEP 2: Does the patient need only setup/clean-up assistance from one helper? No. ORAL HYGIENE - STEP 3: Does the patient need only verbal/nonverbal cueing or touching/steadying/contact guard assistance fro m one helper? Yes. 1. [id number] ADMISSION PERFORMANCE: Supervision or touching assistance CODE: 04 TOILETING HYGIENE: Not assessed/no information CODE: - BATHING: SHOWER/BATHE SELF - STEP 1: Does the patient complete the activity by him/herself with no assistance (physical, verbal/nonverbal cueing, setup/clean-up)? No. SHOWER/BATHE SELF - STEP 2: Does the patient need only setup/clean-up assistance from one helper? No. SHOWER/BATHE SELF - STEP 3: Does the patient need only verbal/nonverbal cueing or touching/steadying/contact guard assistance fro m one helper? Yes. 1. [id number] ADMISSION PERFORMANCE: Supervision or touching assistance CODE: 04 DRESSING - UPPER BODY: DRESSING - UPPER BODY - STEP 1: Does the patient complete the activity by him/herself with no assistance (physical, verbal/nonverbal cueing, setup/clean-up)? No. DRESSING - UPPER BODY - STEP 2: Does the patient need only setup/clean-up assistance from one helper? No. DRESSING - UPPER BODY - STEP 3: Does the patient need only verbal/nonverbal cueing or touching/steadying/contact guard assistance fro m one helper? Yes. 1. [id number] ADMISSION PERFORMANCE: Supervision or touching assistance CODE: 04 DRESSING - LOWER BODY: DRESSING - LOWER BODY - STEP 1: Does the patient complete the activity by him/herself with no assistance (physical, verbal/nonverbal cueing, setup/clean-up)? No. DRESSING - LOWER BODY - STEP 2: Does the patient need only setup/clean-up assistance from one helper? No. DRESSING - LOWER BODY - STEP 3: Does the patient need only verbal/nonverbal cueing or touching/steadying/contact guard assistance fro m one helper? Yes. 1. [id number] ADMISSION PERFORMANCE: Supervision or touching assistance CODE: 04 PUTTING ON/TAKING OFF FOOTWEAR: FOOTWEAR - STEP 1: Does the patient complete the activity by him/herself with no assistance (physical, verbal/nonverbal cueing, setup/clean-up)? No. FOOTWEAR - STEP 2: Does the patient need only setup/clean-up assistance from one helper? No. FOOTWEAR - STEP 3: Does the patient need only verbal/nonverbal cueing or touching/steadying/contact guard assistance fro m one helper? No. FOOTWEAR - STEP 4: Does the patient need physical assistance - for example lifting or trunk support from one helper - wi th the helper providing less than half of the effort? No. FOOTWEAR - STEP 5: Does the patient need physical assistance - for example lifting or trunk support from one helper - wi th the helper providing more than half of the effort? Yes. 1. [id number] ADMISSION PERFORMANCE: Substantial/maximal assistance CODE: 02 DOES THE PATIENT USE A WHEELCHAIR/SCOOTER? CODE: EXPR INDICATE THE TYPE OF WHEELCHAIR/SCOOTER USED: CODE: EXPR INDICATE THE TYPE OF WHEELCHAIR/SCOOTER USED: CODE: EXPR BLADDER AND BOWEL: CODE: EXPR CODE: EXPR SIGNATURE PANEL: The following modified sections: 1. [id number] Admission Performance, 1. [id number] Admission Performance, 1. [id number] Admission Performance, 1. [id number] Admission Performance, 1. [id number] Admission Performance, 1. [id number] Admission Performance were [electronically] signed by TIMI Mohan on WedMar 15 2019 12:30:37 GMT-0600 (Central Standard Time)
[2019-03-15] MEDS: ENOXAPARIN 40 MG/0.4 ML SQ SCH (15:23)
--- NOTE | 2019-03-15 18:04 | PN ---
Date of Progress Note: 03/15/2019 Subjective: Patient was seen this afternoon for followup. She was sitting in wheelchair with her family and as per report from nursing staff and the patient , she slept very well last night with alprazolam 0.5 mg dose. She slept from 11 p.m. to 6 a.m. today and feels much better, refreshed this morning. Objective: Vital Signs: Reviewed. HEENT: Unremarkable. Lungs: Clear to auscultation. Heart: Sounds normal. Abdomen: Soft. Bowel sounds normal. No guarding, rigidity, tenderness, or distention. Extremities: No leg edema. Impression: 1. Stroke. 2. Meningioma. 3. Urinary tract infection. 4. Insomnia. Plan: Continue current medications. Continue alprazolam. Continue current antibiotics. We will get blood work done tomorrow for her, and I will see her tomorrow for followup. JULIO/MODL Voice ID: [id number] Report ID: [id number] RAINA
[2019-03-15] MEDS: DOCUSATE NA/SENNA CONC 1 TAB PO PRN (20:52)
[2019-03-15] MEDS: MAGNESIUM OXIDE 400 MG TAB PO SCH (20:52)
[2019-03-15] MEDS: MELATONIN 3 MG TABLET PO SCH (20:53)
[2019-03-15] MEDS: ALPRAZOLAM 0.5 MG TABLET PO SCH (22:20)
[2019-03-16 06:14] LABS: Basophils % 0.6 % (0-1.3); Hematocrit 36.2 % (36.0-45.0); Lymphocytes % 21.7 % (15.3-44.8); MPV 9.2 fL (7.6-11.3); RBC Red Blood Cell Count 3.85 M/uL (3.86-4.86)
[2019-03-16 06:34] LABS: Albumin 2.8 g/dL (3.4-5.0); BUN Blood Urea Nitrogen 29 mg/dL (7-18); Bicarbonate 27 mmol/L (21-32); Glucose Level 105 mg/dL (74-106); Magnesium 2.5 mg/dL (1.8-2.4); Potassium 3.9 mmol/L (3.5-5.1); Prealbumin 20.4 mg/dL (20-40); Sodium Level 146 mmol/L (136-145)
[2019-03-16] MEDS: CLOTRIMAZOLE 1% CREAM 15 GM TOP SCH ×2 (08:00→20:25)
[2019-03-16] MEDS: CIPROFLOXACIN HCL 500 MG TAB PO SCH ×2 (08:14→20:25)
[2019-03-16] MEDS: DULOXETINE 20 MG CAP PO SCH (08:14)
[2019-03-16] MEDS: AMLODIPINE 10 MG TAB PO SCH (08:15)
[2019-03-16] MEDS: ENOXAPARIN 40 MG/0.4 ML SQ SCH (16:33)
--- NOTE | 2019-03-16 17:29 | FAST ---
ENCOUNTER DATE AND TIME: 03/16/2019 08:00 (CRAFT ARTIST) NAME GLENN WALKER DATE OF : 1955 DATE OF ADMISSION: 03/11/2019 14:31 (CRAFT ARTIST) PHONE: AGE: 63 N# [id number] GENDER: Female ENCOUNTER PHYSICIAN: Dr. Sawyer Rios M.D. 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 - Stroke 01 - Other Stroke (01.9) Intracranial Hemorrhage. Right [place] Infarct. ROLL LEFT AND RIGHT: ROLL LEFT AND RIGHT - STEP 1: Does the patient complete the activity by him/herself with no assistance (physical, verbal/nonverbal cueing, setup/clean-up)? Yes. 1. [id number] ADMISSION PERFORMANCE: Independent CODE: 06 SIT TO LYING: SIT TO LYING - STEP 1: Does the patient complete the activity by him/herself with no assistance (physical, verbal/nonverbal cueing, setup/clean-up)? No. SIT TO LYING - STEP 2: Does the patient need only setup/clean-up assistance from one helper? No. SIT TO LYING - STEP 3: Does the patient need only verbal/nonverbal cueing or touching/steadying/contact guard assistance fro m one helper? Yes. 1. [id number] ADMISSION PERFORMANCE: Supervision or touching assistance CODE: 04 LYING TO SITTING: LYING TO SITTING ON SIDE OF BED - STEP 1: Does the patient complete the activity by him/herself with no assistance (physical, verbal/nonverbal cueing, setup/clean-up)? No. LYING TO SITTING ON SIDE OF BED - STEP 2: Does the patient need only setup/clean-up assistance from one helper? No. LYING TO SITTING ON SIDE OF BED - STEP 3: Does the patient need only verbal/nonverbal cueing or touching/steadying/contact guard assistance fro m one helper? Yes. 1. [id number] ADMISSION PERFORMANCE: Supervision or touching assistance CODE: 04 SIT TO STAND: SIT TO STAND - STEP 1: Does the patient complete the activity by him/herself with no assistance (physical, verbal/nonverbal cueing, setup/clean-up)? No. SIT TO STAND - STEP 2: Does the patient need only setup/clean-up assistance from one helper? No. SIT TO STAND - STEP 3: Does the patient need only verbal/nonverbal cueing or touching/steadying/contact guard assistance fro m one helper? No. SIT TO STAND - STEP 4: Does the patient need physical assistance - for example lifting or trunk support from one helper - wi th the helper providing less than half of the effort? Yes. 1. [id number] ADMISSION PERFORMANCE: Partial/moderate assistance CODE: 03 TRANSFERS: BED, CHAIR: CHAIR/[id number] TRANSFER - STEP 1: Does the patient complete the activity by him/herself with no assistance (physical, verbal/nonverbal cueing, setup/clean-up)? No. CHAIR/ITH-[id number] TRANSFER - STEP 2: Does the patient need only setup/clean-up assistance from one helper? No. CHAIR/[id number] TRANSFER - STEP 3: Does the patient need only verbal/nonverbal cueing or touching/steadying/contact guard assistance fro m one helper? No. CHAIR/[id number] TRANSFER - STEP 4: Does the patient need physical assistance - for example lifting or trunk support from one helper - wi th the helper providing less than half of the effort? Yes. 1. [id number] ADMISSION PERFORMANCE: Partial/moderate assistance CODE: 03 TRANSFER TOILET: TOILET TRANSFER - STEP 1: Does the patient complete the activity by him/herself with no assistance (physical, verbal/nonverbal cueing, setup/clean-up)? No. TOILET TRANSFER - STEP 2: Does the patient need only setup/clean-up assistance from one helper? No. TOILET TRANSFER - STEP 3: Does the patient need only verbal/nonverbal cueing or touching/steadying/contact guard assistance fro m one helper? No. TOILET TRANSFER - STEP 4: Does the patient need physical assistance - for example lifting or trunk support from one helper - wi th the helper providing less than half of the effort? Yes. 1. [id number] ADMISSION PERFORMANCE: Partial/moderate assistance CODE: 03 TRANSFERS: CAR: CAR TRANSFER - STEP 1: Does the patient complete the activity by him/herself with no assistance (physical, verbal/nonverbal cueing, setup/clean-up)? No. CAR TRANSFER - STEP 2: Does the patient need only setup/clean-up assistance from one helper? No. CAR TRANSFER - STEP 3: Does the patient need only verbal/nonverbal cueing or touching/steadying/contact guard assistance fro m one helper? No. CAR TRANSFER - STEP 4: Does the patient need physical assistance - for example lifting or trunk support from one helper - wi th the helper providing less than half of the effort? Yes. 1. [id number] ADMISSION PERFORMANCE: Partial/moderate assistance CODE: WALK 10 FEET: WALK 10 FEET - STEP 1: Does the patient complete the activity by him/herself with no assistance (physical, verbal/nonverbal cueing, setup/clean-up)? No. WALK 10 FEET - STEP 2: Does the patient need only setup/clean-up assistance from one helper? No. WALK 10 FEET - STEP 3: Does the patient need only verbal/nonverbal cueing or touching/steadying/contact guard assistance fro m one helper? Yes. 1. [id number] ADMISSION PERFORMANCE: Supervision or touching assistance CODE: WALK 50 FEET: WALK 50 FEET - STEP 1: Does the patient complete the activity by him/herself with no assistance (physical, verbal/nonverbal cueing, setup/clean-up)? No. WALK 50 FEET - STEP 2: Does the patient need only setup/clean-up assistance from one helper? No. WALK 50 FEET - STEP 3: Does the patient need only verbal/nonverbal cueing or touching/steadying/contact guard assistance fro m one helper? Yes. 1. [id number] ADMISSION PERFORMANCE: Supervision or touching assistance CODE: WALK 150 FEET: WALK 150 FEET - STEP 1: Does the patient complete the activity by him/herself with no assistance (physical, verbal/nonverbal cueing, setup/clean-up)? No. WALK 150 FEET - STEP 2: Does the patient need only setup/clean-up assistance from one helper? No. WALK 150 FEET - STEP 3: Does the patient need only verbal/nonverbal cueing or touching/steadying/contact guard assistance fro m one helper? No. WALK 150 FEET - STEP 4: Does the patient need physical assistance - for example lifting or trunk support from one helper - wi th the helper providing less than half of the effort? Yes. 1. [id number] ADMISSION PERFORMANCE: Partial/moderate assistance CODE: WALK 10 FEET UNEVEN: Not attempted due to medical condition or safety concerns CODE: 88 1 STEP (CURB): Not attempted due to medical condition or safety concerns CODE: 88 PICKING UP OBJECT: Not attempted due to medical condition or safety concerns CODE: 88 DOES THE PATIENT USE A WHEELCHAIR/SCOOTER? Q1. DOES THE PATIENT USE A WHEELCHAIR/SCOOTER?: Yes CODE: 1 WHEEL 50 FEET WITH TWO TURNS: WHEEL 50 FEET WITH TWO TURNS - STEP 1: Does the patient complete the activity by him/herself with no assistance (physical, verbal/nonverbal cueing, setup/clean-up)? No. WHEEL 50 FEET WITH TWO TURNS - STEP 2: Does the patient need only setup/clean-up assistance from one helper? No. WHEEL 50 FEET WITH TWO TURNS - STEP 3: Does the patient need only verbal/nonverbal cueing or touching/steadying/contact guard assistance fro m one helper? Yes. 1. [id number] ADMISSION PERFORMANCE: Supervision or touching assistance CODE: 04 INDICATE THE TYPE OF WHEELCHAIR/SCOOTER USED: RR1. INDICATE THE TYPE OF WHEELCHAIR/SCOOTER USED.: Manual CODE: 1 WHEEL 150 FEET: WHEEL 150 FEET - STEP 1: Does the patient complete the activity by him/herself with no assistance (physical, verbal/nonverbal cueing, setup/clean-up)? No. WHEEL 150 FEET - STEP 2: Does the patient need only setup/clean-up assistance from one helper? No. WHEEL 150 FEET - STEP 3: Does the patient need only verbal/nonverbal cueing or touching/steadying/contact guard assistance fro m one helper? Yes. 1. [id number] ADMISSION PERFORMANCE: Supervision or touching assistance CODE: 04 INDICATE THE TYPE OF WHEELCHAIR/SCOOTER USED: SS1. INDICATE THE TYPE OF WHEELCHAIR/SCOOTER USED.: Manual CODE: 1 BLADDER AND BOWEL: CODE: EXPR CODE: EXPR SIGNATURE PANEL: The following modified sections: 1. [id number] Admission Performance, 1. [id number] Admission Performance, 1. [id number] Admission Performance, 1. [id number] Admission Performance, 1. [id number] Admission Performance, 1. [id number] Admission Performance, 1. [id number] Admission Performance, 1. [id number] Admission Performance , 1. [id number] Admission Performance, 1. [id number] Admission Performance, 1. [id number] Admission Performanc e, Q1. Does the patient use a wheelchair/scooter?, 1. [id number] Admission Performance, RR1. Indicate th e type of wheelchair/scooter used., 1. [id number] Admission Performance, Code, SS1. Indicate the type of wheelchair/scooter used. were [electronically] signed by Marck Simon PT on WedMar 16 2019 17: 28:03 GMT-0600 (Central Standard Time)
--- NOTE | 2019-03-16 19:04 | R.PN ---
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 Pt denied any Shortness of Breath. She denies headache or nausea. She is making better progress with physical and occupational therapy. Her ADLs were performed with minimum assistance. Ambulated 180' with contact guard assistance using a rolling walker. On Cipro for UTI. Hgb 11.8, WBC 9.3, prealbumin 20.4. VITAL SIGNS Temperature: 97.9 F SBP/DBP: 127/69 Pulse: 81 Resp: 16 MEDICATION ALLERGIES: No Known Drug Allergies (NKDA) ENVIRONMENTAL ALLERGIES: None Known - Substance Allergies None Known - Other Allergies None Known NURSING: - Shower allowing shower - Bladder care per protocol - Skin care per protocol PRECAUTIONS: - Fall Precaution Bed alarm TABS alarm Wheel chair alarm ACTIVITIES OOB only with supervision THERAPIES: - Occupational Therapy Cognitive Retraining. Visual Perceptual Training. - Dietary and Nutrition Adequate Nutrition. Nutritional Education. Nutritional Supplements. - Speech Therapy Cognitive Training. Expressive Language Skills. Memory Strategies. Receptive Language Skills. Speech Intelligibility Training. PHYSICAL EXAM - Gen Alert and awake Lying in bed No apparent distress Oriented to: person, time, and place - Skin No breakdown Normacephalic Scalp surgical site intact - Eyes No abnormalities - ENMT No abnormalities - Neck No abnormalities - CVS RRR - Chest No abnormalities - Resp Clear to auscultation - Abd + bowel sounds - GI Soft Deferred - No abnormalities - Ext no edema - MSK 3-4+/5 weakness in both lower extremities. - Neuro Diffuse weakness, incoordination and unsteady gait - Psych Moderate depression. ASSESSMENT: Pt. is a 63 yo Right-handed female.On 01/25/2019 she was admitted to [facility] with diagnosis Brain Mass.Her impairment category is Brain Dysfunction 02 - Non-trau matic Brain Dysfunction (02.1).Pre-morbidly, Pt. was independent/mod-I in Locomotion, Safety Awarenes s, Balance, Social Cognition, Transfers Control, Sphincter Control, Self-Care, Communication, and End urance; and she had good Locomotion, Safety Awareness, Balance, Social Cognition, Transfers Control, Sphincter Control, Self-Care, Communication, and Endurance.Currently, she has deficits of Locomotion, Balance, Safety Awareness, Transfers Control, Self-Care, Endurance, and Communication.Pt. is now ref erred to [facility] for acute in-patient rehabilitation in order to maximize p atient's functional independence in activities of daily living, strength, ROM, and mobility.- Rehab G oal Patient has realistic goal of being discharged at assistance level 6-Danielle to reside at Home with Fam adriana/Relatives. MDM/PLAN: - Physical Therapy Gait dysfunction - to improve, our physical therapists will perform initial evaluation of pt's statu s upon admission and devise an individualized program for Gait Training, and Wheel Chair mobility Inability to transfer - to improve, our physical therapists will perform initial evaluation of pt's status upon admission and devise an individualized program for Bed mobility Need for home safety evaluation - to improve, our physical therapists will perform initial evaluatio n of pt's status upon admission and devise an individualized program for Home Evaluation Need in caregiver upon discharge - to improve, our physical therapists will perform initial evaluati on of pt's status upon admission and devise an individualized program for Caregiver Training New precaution - to improve, our physical therapists will perform initial evaluation of pt's status upon admission and devise an individualized program for Patient precaution education Poor balance - to improve, our physical therapists will perform initial evaluation of pt's status up on admission and devise an individualized program for Balance Training Poor endurance - to improve, our physical therapists will perform initial evaluation of pt's status upon admission and devise an individualized program for Endurance Training Weakness - to improve, our physical therapists will perform initial evaluation of pt's status upon a dmission and devise an individualized program for Aquatic Therapy, Neuromuscular Reeducation, and Str engthening Achieving independence - to improve, our physical therapists will perform initial evaluation of pt's status upon admission and devise an individualized program for Community Reintegration Activities - Occupational Therapy ADL deficits - to improve, our occupation therapists will perform initial evaluation of pt's status upon admission and devise an individualized program for Bathing, Bed mobility, Community Reintegratio n, Cooking, Dressing, Eating, Fine Motor Skills, Grooming, Homemaking, Kitchen Mobility, Laundry, Pat ient Education, Safety Awareness, Splinting - Positioning, Transfers(Toilet, Tub, Shower), and Wheel Chair Management Need for prompt care rn - to improve, our occupation therapists will perform initial evaluation of pt's status upon admission and devise an individualized program for Caregiver Training Weakness - to improve, our occupation therapists will perform initial evaluation of pt's status upon admission and devise an individualized program for Aquatic Therapy, Balance, Endurance, UE ROM, and UE strengthening - Other See attached MAR (Medication Administration Record) Glenn Ernandez.pdf See attached MAR (Medication Administration Record) - Diet Type Continue Regular - Diet - Liquid Texture Continue Regular - Tube Feed Continue N/A - Bladder care per protocol - Fall Precaution Bed alarm TABS alarm Wheel chair alarm - Skin care per protocol - Diet - Solid Texture Continue Regular - Shower allowing shower for Dementia, TBI, Stroke, or others FUNCTIONAL STATUS: UPDATED AT WEEKLY TEAM CONFERENCE - Bladder Same accident frequency: 7-Ind - No accidents in the past 7 days - Bowel Same accident frequency: 7-Ind - No accidents in the past 7 days - Walking Same score based on distance walked: 0(N/A) - Wheelchair Same score based on distance traveled: 0(N/A) Same score based on distance traveled: 3(>=150ft) FUNCTIONAL STATUS: - Self-Care A. Eating Danielle B. Grooming Paresh C. Bathing modA D. Dressing - Upper modA E. Dressing - Lower Paresh F. Toileting modA - Sphincter Control G. Bladder control modA H. Bowel control Paresh - Transfers Control I. Bed/Chair/Wheelchair maxA J. Toilet maxA K. Tub/Shower maxA - Locomotion L. Walk/Wheelchair (B) maxA M. Stairs ADNO - Communication N. Comprehension (B) Paresh O. Expression (B) Paresh - Social Cognition P. Social Interaction sup Q. Problem Solving sup R. Memory sup - Endurance Good - Balance Good - Safety Awareness Good QI SCORES: - Self-Care A. Eating 05-Setup or clean-up assistance B. Oral hygiene 05-Setup or clean-up assistance C. Toileting hygiene 03-Partial/moderate assistance E. Shower/bathe self 02-Substantial/maximal assistance F. Upper body dressing 03-Partial/moderate assistance G. Lower body dressing 02-Substantial/maximal assistance H. Putting on/taking off footwear 01-Dependent - Mobility A. Roll left and right 03-Partial/moderate assistance B. Sit to lying 02-Substantial/maximal assistance C. Lying to sitting on side of bed 02-Substantial/maximal assistance D. Sit to stand 02-Substantial/maximal assistance E. Chair/[id number]-[id number] transfer 02-Substantial/maximal assistance F. Toilet transfer 02-Substantial/maximal assistance G. Car transfer 88-Not attempted due to medical condition or safety concerns I. Walk 10 feet 88-Not attempted due to medical condition or safety concerns J. Walk 50 feet with two turns 88-Not attempted due to medical condition or safety concerns K. Walk 150 feet 88-Not attempted due to medical condition or safety concerns L. Walking 10 feet on uneven surfaces 88-Not attempted due to medical condition or safety concerns M. 1 step (curb) 88-Not attempted due to medical condition or safety concerns N. 4 steps 88-Not attempted due to medical condition or safety concerns O. 12 steps 88-Not attempted due to medical condition or safety concerns P. Picking up object 88-Not attempted due to medical condition or safety concerns R. Wheel 50 feet with two turns 02-Substantial/maximal assistance S. Wheel 150 feet 02-Substantial/maximal assistance - Bladder and Bowel Bladder continence 0-Always continent Bowel continence 0-Always continent - Endurance Poor - Balance Poor - Safety Awareness Fair CURRENT FUNC. 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
[2019-03-16] MEDS: ALPRAZOLAM 0.5 MG TABLET PO SCH (20:25)
[2019-03-16] MEDS: MELATONIN 3 MG TABLET PO SCH (20:25)
[2019-03-16] MEDS: MAGNESIUM OXIDE 400 MG TAB PO SCH (20:25)
--- NOTE | 2019-03-16 22:11 | PN ---
Date of Progress Note: 03/16/2019 Subjective: Patient was seen this morning for followup. She was lying in bed. She slept very well last night as well and current dose of alprazolam and melatonin together is working very well for her to sleep for 6-7 hours at night time. Objective: HEENT: Unremarkable. Lungs: Clear to auscultation. Heart: Heart sounds normal. Abdomen: Soft, bowel sounds normal. No guarding, rigidity, tenderness, or distention. Extremities: No leg edema. Laboratory Data: White count 9.3, hemoglobin 11.8, platelets 213. Sodium 146, potassium 3.9, chlori de 115, bicarb 27, BUN 29, creatinine 0.37, glucose 105. Impression: 1.Urinary tract infection. 2.Stroke. 3.Meningioma. 4.Hypertension. 5.Anemia. Plan: Continue current medications including antibiotic, antihypertensive medications, continue DVT prophylaxis. Physical therapy will be provided under guidance of Dr. Rios. We will continue cur rent alprazolam and melatonin for insomnia and the patient does not report any side effects with this medication. JULIO/MODL Voice ID: [id number] Report ID: [id number]
[2019-03-17] MEDS: CLOTRIMAZOLE 1% CREAM 15 GM TOP SCH ×2 (08:00→21:11)
[2019-03-17] MEDS: DULOXETINE 20 MG CAP PO SCH (09:02)
[2019-03-17] MEDS: CIPROFLOXACIN HCL 500 MG TAB PO SCH ×2 (09:02→21:09)
[2019-03-17] MEDS: AMLODIPINE 10 MG TAB PO SCH (09:02)
--- NOTE | 2019-03-17 10:02 | P.RH.PN ---
Estimated Length of Stay: 15 Expected Discharge Date: 03/24/19 Family Support: Yes Javascript Programmer Goal: Mobility, Transfers, Self Care Vital Signs: Last Vital Signs Temp 97.5 F 03/16/19 20:00 Pulse 88 03/17/19 09:02 Resp 16 03/16/19 20:00 BP 124/69 03/17/19 09:02 Pulse Ox 96 03/16/19 20:00 Laboratory: Laboratory Last Values WBC 9.3 K/uL (4.3-10.9) D 03/16/19 05:45 RBC 3.85 M/uL (3.86-4.86) L 03/16/19 05:45 Hgb 11.8 g/dL (12.0-15.0) L 03/16/19 05:45 Hct 36.2 % (36.0-45.0) 03/16/19 05:45 MCV 93.9 fL (80-100) 03/16/19 05:45 MCH 30.7 pg (27.0-35.0) 03/16/19 05:45 MCHC 32.7 g/dL (32.0-36.0) 03/16/19 05:45 RDW 14.8 % (12.1-15.2) 03/16/19 05:45 Plt Count 213 K/uL (152-406) D 03/16/19 05:45 MPV 9.2 fL (7.6-11.3) 03/16/19 05:45 Neutrophils % 64.8 % (41.7-73.7) 03/16/19 05:45 Lymphocytes % 21.7 % (15.3-44.8) 03/16/19 05:45 Monocytes % 11.5 % (3.3-12.3) 03/16/19 05:45 Eosinophils % 1.4 % (0-4.4) 03/16/19 05:45 Basophils % 0.6 % (0-1.3) 03/16/19 05:45 Absolute Neutrophils 6.0 K/uL (1.8-8.0) 03/16/19 05:45 Segmented Neutrophils 73 % (40-80) 03/11/19 05:52 Absolute Lymphocytes 2.0 K/uL (0.7-4.9) 03/16/19 05:45 Lymphocytes 15 % (15-42) 03/11/19 05:52 Monocytes 11 % (0-10) H 03/11/19 05:52 Absolute Monocytes 1.1 K/uL (0.1-1.3) 03/16/19 05:45 Eosinophils 1 % (0-3) 03/11/19 05:52 Absolute Eosinophils 0.1 K/uL (0-0.5) 03/16/19 05:45 Absolute Basophils 0.1 K/uL (0-0.5) 03/16/19 05:45 Morphology Comment Not seen (NOT SEEN) 03/11/19 05:52 Sodium 146 mmol/L (136-145) H 03/16/19 05:45 Potassium 3.9 mmol/L (3.5-5.1) 03/16/19 05:45 Chloride 115 mmol/L (98-107) H 03/16/19 05:45 Carbon Dioxide 27 mmol/L (21-32) 03/16/19 05:45 BUN 29 mg/dL (7-18) H 03/16/19 05:45 Creatinine 0.37 mg/dL (0.55-1.3) L 03/16/19 05:45 Estimated GFR > 90 mL/min (=/>90) 03/16/19 05:45 Glucose 105 mg/dL (74-106) 03/16/19 05:45 Calcium 8.2 mg/dL (8.5-10.1) L 03/16/19 05:45 Magnesium 2.5 mg/dL (1.8-2.4) H 03/16/19 05:45 Albumin 2.8 g/dL (3.4-5.0) L 03/16/19 05:45 Prealbumin 20.4 mg/dL (20-40) 03/16/19 05:45 Urine Color Yellow 03/11/19 00:40 Urine Appearance Clear 03/11/19 00:40 Urine pH 5.0 (5.0-7.0) 03/11/19 00:40 Ur Specific [place] 1.020 (1.005-1.030) 03/11/19 00:40 Urine Ketones Negative (NEG) 03/11/19 00:40 Urine Blood Negative (NEG) 03/11/19 00:40 Urine Nitrite Negative (NEG) 03/11/19 00:40 Urine Bilirubin Negative (NEG) 03/11/19 00:40 Urine Urobilinogen 0.2 mg/dL (0.2-1.0) 03/11/19 00:40 Ur Leukocyte Esterase 1+ (NEG) H 03/11/19 00:40 Urine RBC <5 /HPF (NONE SEEN) 03/11/19 00:40 Urine WBC 10-20 /HPF (<5) H 03/11/19 00:40 Ur Squamous Epith Cells 5-10 /HPF (NONE SEEN) H 03/11/19 00:40 Calcium Oxalate Crystal Few (NONE SEEN) 03/11/19 00:40 Urine Bacteria 20-50 /HPF (<20) H 03/11/19 00:40 Urine Mucus 3+ /HPF (NONE SEEN) H 03/11/19 00:40 Urine Culture Reflexed Not needed 03/11/19 00:40 Urine Glucose Negative (NEG) 03/11/19 00:40 Urine Total Protein Negative (NEG) 03/11/19 00:40 Weight: 114 lb Wound Present: No Closed Surgical Incision Present: No Negative Pressure Wound Therapy Present: No Physician Update: Labs reviewed with improved WBC to 9.3. She is mildly dehydrated with elevated electrolytes. She is doing better with physical and occupational therapy. She walked 70' with moderate assistance. She requires simplified instruction but scored 27/30 on the MOCA. Medical Issues: Patient is incontinent daily with bladder and always continent with bowel. Functional Improvement: pt has continued to demonstrate progress. pt is able to ambulate with CG and perform transfers with MIN assist. Further family training is necessary for functional mobility and guarding during transfers and ambulation. pt Will continue to benefit and progress with further therapy services to enhance transfers, ambulation, and other functional mobility. Speech Therapy Update: Patient obtained a 26/30 on the MOCA indicating functional cognitive-linguistic skills. However, functionally, patient cont to present with attention and problem solving deficits. Patient required environmental modifications, simplified and repeated instruction, and verbal cues to problem solve through complex situations. Patient will cont. to require ST in order to reach PLOF. Summary: Patient's care plan and jail guard goals have been reviewed and revised as necessary. Please see the Rehabilitation Signature page for all necessary signatures.
[2019-03-17] MEDS: ENOXAPARIN 40 MG/0.4 ML SQ SCH (15:53)
--- NOTE | 2019-03-17 16:18 | PN ---
Date of Progress Note: 03/17/2019 Subjective: Patient was seen this morning for followup, denied any complaints. She slept very well last night. No constipation. Objective: Vital Signs: Reviewed. HEENT: Unremarkable. Lungs: Clear to auscultation. Heart: Sounds normal. Extremities: No leg edema. Impression: 1.Insomnia. 2.Hypertension. 3.Urinary tract infection. 4.Stroke. Plan: After today's dose of antibiotic, we will discontinue as of tomorrow. As patient has received adequate number of days of antibiotic for urinary tract infection, continue current alprazolam as it is helping her insomnia very well. I have asked her to continue alprazolam and melatonin, that is t he way she should continue to take it when she goes home. JULIO/MODL Voice ID: [id number] Report ID: [id number]
[2019-03-17] MEDS: MELATONIN 3 MG TABLET PO SCH (21:00)
[2019-03-17] MEDS: MAGNESIUM OXIDE 400 MG TAB PO SCH (21:09)
[2019-03-17] MEDS: ALPRAZOLAM 0.5 MG TABLET PO SCH (22:10)
--- NOTE | 2019-03-18 02:44 | FAST ---
SHIFT START DATE/TIME: 03/17/2019 19:00 (MULTIMEDIA TEACHER) SHIFT END DATE/TIME: 03/18/2019 07:00 (MULTIMEDIA TEACHER) NAME GLENN WALKER DATE OF : 1955 DATE OF ADMISSION: 03/11/2019 14:31 (MULTIMEDIA TEACHER) PHONE: AGE: 63 N# [id number] GENDER: Female ENCOUNTER PHYSICIAN: Dr. Sawyer Rios M.D. 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 - Stroke 01 - Other Stroke (01.9) Intracranial Hemorrhage. Right [place] Infarct. EATING: Not assessed/no information CODE: - ORAL HYGIENE: ORAL HYGIENE - STEP 1: Does the patient complete the activity by him/herself with no assistance (physical, verbal/nonverbal cueing, setup/clean-up)? No. ORAL HYGIENE - STEP 2: Does the patient need only setup/clean-up assistance from one helper? No. ORAL HYGIENE - STEP 3: Does the patient need only verbal/nonverbal cueing or touching/steadying/contact guard assistance fro m one helper? Yes. 1. [id number] ADMISSION PERFORMANCE: Supervision or touching assistance CODE: 04 TOILETING HYGIENE: TOILETING HYGIENE - STEP 1: Does the patient complete the activity by him/herself with no assistance (physical, verbal/nonverbal cueing, setup/clean-up)? No. TOILETING HYGIENE - STEP 2: Does the patient need only setup/clean-up assistance from one helper? No. TOILETING HYGIENE - STEP 3: Does the patient need only verbal/nonverbal cueing or touching/steadying/contact guard assistance fro m one helper? Yes. 1. [id number] ADMISSION PERFORMANCE: Supervision or touching assistance CODE: 04 BATHING: Not assessed/no information CODE: - DRESSING - UPPER BODY: Not assessed/no information CODE: - DRESSING - LOWER BODY: Not assessed/no information CODE: - PUTTING ON/TAKING OFF FOOTWEAR: Not assessed/no information CODE: - ROLL LEFT AND RIGHT: ROLL LEFT AND RIGHT - STEP 1: Does the patient complete the activity by him/herself with no assistance (physical, verbal/nonverbal cueing, setup/clean-up)? No. ROLL LEFT AND RIGHT - STEP 2: Does the patient need only setup/clean-up assistance from one helper? No. ROLL LEFT AND RIGHT - STEP 3: Does the patient need only verbal/nonverbal cueing or touching/steadying/contact guard assistance fro m one helper? Yes. 1. [id number] ADMISSION PERFORMANCE: Supervision or touching assistance CODE: 04 SIT TO LYING: SIT TO LYING - STEP 1: Does the patient complete the activity by him/herself with no assistance (physical, verbal/nonverbal cueing, setup/clean-up)? No. SIT TO LYING - STEP 2: Does the patient need only setup/clean-up assistance from one helper? No. SIT TO LYING - STEP 3: Does the patient need only verbal/nonverbal cueing or touching/steadying/contact guard assistance fro m one helper? Yes. 1. [id number] ADMISSION PERFORMANCE: Supervision or touching assistance CODE: 04 LYING TO SITTING: LYING TO SITTING ON SIDE OF BED - STEP 1: Does the patient complete the activity by him/herself with no assistance (physical, verbal/nonverbal cueing, setup/clean-up)? No. LYING TO SITTING ON SIDE OF BED - STEP 2: Does the patient need only setup/clean-up assistance from one helper? No. LYING TO SITTING ON SIDE OF BED - STEP 3: Does the patient need only verbal/nonverbal cueing or touching/steadying/contact guard assistance fro m one helper? Yes. 1. [id number] ADMISSION PERFORMANCE: Supervision or touching assistance CODE: 04 SIT TO STAND: SIT TO STAND - STEP 1: Does the patient complete the activity by him/herself with no assistance (physical, verbal/nonverbal cueing, setup/clean-up)? No. SIT TO STAND - STEP 2: Does the patient need only setup/clean-up assistance from one helper? No. SIT TO STAND - STEP 3: Does the patient need only verbal/nonverbal cueing or touching/steadying/contact guard assistance fro m one helper? No. SIT TO STAND - STEP 4: Does the patient need physical assistance - for example lifting or trunk support from one helper - wi th the helper providing less than half of the effort? Yes. 1. [id number] ADMISSION PERFORMANCE: Partial/moderate assistance CODE: 03 TRANSFERS: BED, CHAIR: CHAIR/[id number] TRANSFER - STEP 1: Does the patient complete the activity by him/herself with no assistance (physical, verbal/nonverbal cueing, setup/clean-up)? No. CHAIR/[id number] TRANSFER - STEP 2: Does the patient need only setup/clean-up assistance from one helper? No. [id number] TRANSFER - STEP 3: Does the patient need only verbal/nonverbal cueing or touching/steadying/contact guard assistance fro m one helper? No. CHAIR/[id number] TRANSFER - STEP 4: Does the patient need physical assistance - for example lifting or trunk support from one helper - wi th the helper providing less than half of the effort? Yes. 1. [id number] ADMISSION PERFORMANCE: Partial/moderate assistance CODE: 03 TRANSFER TOILET: TOILET TRANSFER - STEP 1: Does the patient complete the activity by him/herself with no assistance (physical, verbal/nonverbal cueing, setup/clean-up)? No. TOILET TRANSFER - STEP 2: Does the patient need only setup/clean-up assistance from one helper? No. TOILET TRANSFER - STEP 3: Does the patient need only verbal/nonverbal cueing or touching/steadying/contact guard assistance fro m one helper? No. TOILET TRANSFER - STEP 4: Does the patient need physical assistance - for example lifting or trunk support from one helper - wi th the helper providing less than half of the effort? Yes. 1. [id number] ADMISSION PERFORMANCE: Partial/moderate assistance CODE: 03 TRANSFERS: CAR: Not assessed/no information CODE: - WALK 10 FEET: Not assessed/no information CODE: - 1 STEP (CURB): Not assessed/no information CODE: - PICKING UP OBJECT: Not assessed/no information CODE: - DOES THE PATIENT USE A WHEELCHAIR/SCOOTER? CODE: EXPR WHEEL 50 FEET WITH TWO TURNS: Not assessed/no information CODE: - INDICATE THE TYPE OF WHEELCHAIR/SCOOTER USED: CODE: EXPR WHEEL 150 FEET: Not assessed/no information CODE: - INDICATE THE TYPE OF WHEELCHAIR/SCOOTER USED: CODE: EXPR BLADDER AND BOWEL: H350. BLADDER CONTINENCE (3-DAY ASSESSMENT PERIOD): Always continent (no documented incontinence) CODE: 0 H400. BOWEL CONTINENCE (3-DAY ASSESSMENT PERIOD): Always continent CODE: 0
[2019-03-18] MEDS: CLOTRIMAZOLE 1% CREAM 15 GM TOP SCH ×2 (09:42→20:00)
[2019-03-18] MEDS: DULOXETINE 20 MG CAP PO SCH (09:43)
[2019-03-18] MEDS: CIPROFLOXACIN HCL 500 MG TAB PO SCH (09:43)
[2019-03-18] MEDS: AMLODIPINE 10 MG TAB PO SCH (09:43)
--- NOTE | 2019-03-18 15:13 | PN ---
Date of Progress Note: 03/18/2019 Subjective: Patient was seen this morning for followup. No new complaints or problems reported by gianna alberto. She was sitting in wheelchair during her therapy. Denied any complaints. Sleeps very well at night time with current medications and does not have any specific complaint, and feeling much bet ter. No headache. No visual complaints. Objective: Vital signs: Reviewed. HEENT: Unremarkable. Lungs: Clear to auscultation. Heart: Sounds normal. Abdomen: Soft. Bowel sounds normal. No guarding, rigidity, tenderness, or distention. Extremities: No leg edema. Impression: 1.Stroke. 2.Meningioma. 3.Urinary tract infection. 4.Hypertension. Plan: Patient has received adequate number of days of antibiotic therapy. We will discontinue her C ipro starting today. Continue current antihypertensive medication, DVT prophylaxis and I will see he r tomorrow for followup. We will continue current treatment for insomnia. JULIO/MODL Voice ID: [id number] Report ID: [id number]
[2019-03-18] MEDS: ENOXAPARIN 40 MG/0.4 ML SQ SCH (16:13)
[2019-03-18] MEDS: MELATONIN 3 MG TABLET PO SCH (20:33)
[2019-03-18] MEDS: MAGNESIUM OXIDE 400 MG TAB PO SCH (20:33)
[2019-03-18] MEDS: DOCUSATE NA/SENNA CONC 1 TAB PO PRN (20:33)
[2019-03-18] MEDS: ALPRAZOLAM 0.5 MG TABLET PO SCH (21:56)
[2019-03-19] MEDS: AMLODIPINE 10 MG TAB PO SCH (08:15)
[2019-03-19] MEDS: DULOXETINE 20 MG CAP PO SCH (08:16)
[2019-03-19] MEDS: CLOTRIMAZOLE 1% CREAM 15 GM TOP SCH ×2 (08:16→20:00)
--- NOTE | 2019-03-19 16:40 | PN ---
Date of Progress Note: 03/19/2019 Subjective: Patient was seen this morning for followup. She was sitting in the wheelchair. Her yunior ghter was with her. Denied any complaints. She sleeps well at night time with current medication. No nausea, vomiting. No headache. No visual complaints. Objective: Vital Signs: Reviewed. HEENT: Unremarkable. Lungs: Clear to auscultation. Heart: Sounds normal. Abdomen: Soft. Bowel sounds normal. No guarding, rigidity, tenderness, or distention. Extremities: No leg edema. Neuro: Left-sided hemiparesis with power in left upper and left lower extremity 4 to 4+/5. Impression: 1.Stroke with left-sided hemiparesis. 2.Meningioma, status post surgery. 3.Hypertension. 4.Insomnia. Plan: Continue current medications. Continue physical therapy under guidance of Dr. Rios. I wi ll see her tomorrow for followup. Continue current antihypertensive medication and alprazolam at bed time. JULIO/MODL Voice ID: [id number] Report ID: [id number]
[2019-03-19] MEDS: ENOXAPARIN 40 MG/0.4 ML SQ SCH (16:43)
[2019-03-19] MEDS: MELATONIN 3 MG TABLET PO SCH (20:18)
[2019-03-19] MEDS: DOCUSATE NA/SENNA CONC 1 TAB PO PRN (20:18)
[2019-03-19] MEDS: MAGNESIUM OXIDE 400 MG TAB PO SCH (20:18)
[2019-03-19] MEDS: ALPRAZOLAM 0.5 MG TABLET PO SCH (21:59)
[2019-03-20] MEDS: AMLODIPINE 10 MG TAB PO SCH (08:00)
[2019-03-20] MEDS: DULOXETINE 20 MG CAP PO SCH (08:00)
[2019-03-20] MEDS: CLOTRIMAZOLE 1% CREAM 15 GM TOP SCH ×2 (08:41→20:14)
--- NOTE | 2019-03-20 11:03 | FAST ---
ENCOUNTER DATE AND TIME: 03/20/2019 08:00 (INSECT CONTROL AIDE) NAME GLENN WALKER DATE OF : 1955 DATE OF ADMISSION: 03/11/2019 14:31 (INSECT CONTROL AIDE) PHONE: AGE: 63 N# [id number] GENDER: Female ENCOUNTER PHYSICIAN: Dr. Sawyer Rios M.D. 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 - Stroke 01 - Other Stroke (01.9) Intracranial Hemorrhage. Right [place] Infarct. EATING: EATING - STEP 1: Does the patient complete the activity by him/herself with no assistance (physical, verbal/nonverbal cueing, setup/clean-up)? Yes. 1. [id number] ADMISSION PERFORMANCE: Independent CODE: 06 ORAL HYGIENE: ORAL HYGIENE - STEP 1: Does the patient complete the activity by him/herself with no assistance (physical, verbal/nonverbal cueing, setup/clean-up)? Yes. 1. [id number] ADMISSION PERFORMANCE: Independent CODE: 06 TOILETING HYGIENE: TOILETING HYGIENE - STEP 1: Does the patient complete the activity by him/herself with no assistance (physical, verbal/nonverbal cueing, setup/clean-up)? No. TOILETING HYGIENE - STEP 2: Does the patient need only setup/clean-up assistance from one helper? No. TOILETING HYGIENE - STEP 3: Does the patient need only verbal/nonverbal cueing or touching/steadying/contact guard assistance fro m one helper? Yes. 1. [id number] ADMISSION PERFORMANCE: Supervision or touching assistance CODE: 04 BATHING: SHOWER/BATHE SELF - STEP 1: Does the patient complete the activity by him/herself with no assistance (physical, verbal/nonverbal cueing, setup/clean-up)? No. SHOWER/BATHE SELF - STEP 2: Does the patient need only setup/clean-up assistance from one helper? No. SHOWER/BATHE SELF - STEP 3: Does the patient need only verbal/nonverbal cueing or touching/steadying/contact guard assistance fro m one helper? Yes. 1. [id number] ADMISSION PERFORMANCE: Supervision or touching assistance CODE: 04 DRESSING - UPPER BODY: DRESSING - UPPER BODY - STEP 1: Does the patient complete the activity by him/herself with no assistance (physical, verbal/nonverbal cueing, setup/clean-up)? No. DRESSING - UPPER BODY - STEP 2: Does the patient need only setup/clean-up assistance from one helper? No. DRESSING - UPPER BODY - STEP 3: Does the patient need only verbal/nonverbal cueing or touching/steadying/contact guard assistance fro m one helper? Yes. 1. [id number] ADMISSION PERFORMANCE: Supervision or touching assistance CODE: 04 DRESSING - LOWER BODY: DRESSING - LOWER BODY - STEP 1: Does the patient complete the activity by him/herself with no assistance (physical, verbal/nonverbal cueing, setup/clean-up)? No. DRESSING - LOWER BODY - STEP 2: Does the patient need only setup/clean-up assistance from one helper? No. DRESSING - LOWER BODY - STEP 3: Does the patient need only verbal/nonverbal cueing or touching/steadying/contact guard assistance fro m one helper? Yes. 1. [id number] ADMISSION PERFORMANCE: Supervision or touching assistance CODE: 04 PUTTING ON/TAKING OFF FOOTWEAR: FOOTWEAR - STEP 1: Does the patient complete the activity by him/herself with no assistance (physical, verbal/nonverbal cueing, setup/clean-up)? No. FOOTWEAR - STEP 2: Does the patient need only setup/clean-up assistance from one helper? No. FOOTWEAR - STEP 3: Does the patient need only verbal/nonverbal cueing or touching/steadying/contact guard assistance fro m one helper? Yes. 1. [id number] ADMISSION PERFORMANCE: Supervision or touching assistance CODE: 04 DOES THE PATIENT USE A WHEELCHAIR/SCOOTER? CODE: EXPR INDICATE THE TYPE OF WHEELCHAIR/SCOOTER USED: CODE: EXPR INDICATE THE TYPE OF WHEELCHAIR/SCOOTER USED: CODE: EXPR BLADDER AND BOWEL: CODE: EXPR CODE: EXPR SIGNATURE PANEL: The following modified sections: 1. [id number] Admission Performance, 1. [id number] Admission Performance, 1. [id number] Admission Performance, 1. [id number] Admission Performance, 1. [id number] Admission Performance, 1. [id number] Admission Performance, 1. [id number] Admission Performance were [electronically] signed by Nori Dallas OT on WedMar 20 2019 11:02:22 GMT-0600 (Central Standard Time)
[2019-03-20] MEDS: ENOXAPARIN 40 MG/0.4 ML SQ SCH (16:53)
--- NOTE | 2019-03-20 18:53 | R.PN ---
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 Pt denied any Shortness of Breath. She denies headache or nausea. She is making better progress with physical and occupational therapy. Her ADLs were performed with minimum assistance. Ambulated 180' with contact guard assistance using a rolling walker. On Cipro for UTI. Hgb 11.8, WBC 9.3, prealbumin 20.4. She has a mildly pruritic flat non-daisha petechial rash on the right medial leg measuring about 5" b y 3". The rash has the appearance of contact dermatitis. VITAL SIGNS Temperature: 97.9 F SBP/DBP: 125/62 Pulse: 80 Resp: 16 MEDICATION ALLERGIES: No Known Drug Allergies (NKDA) ENVIRONMENTAL ALLERGIES: None Known - Substance Allergies None Known - Other Allergies None Known NURSING: - Shower allowing shower - Bladder care per protocol - Skin care per protocol PRECAUTIONS: - Fall Precaution Bed alarm TABS alarm Wheel chair alarm ACTIVITIES OOB only with supervision THERAPIES: - Occupational Therapy Cognitive Retraining. Visual Perceptual Training. - Dietary and Nutrition Adequate Nutrition. Nutritional Education. Nutritional Supplements. - Speech Therapy Cognitive Training. Expressive Language Skills. Memory Strategies. Receptive Language Skills. Speech Intelligibility Training. PHYSICAL EXAM - Gen Alert and awake Lying in bed No apparent distress Oriented to: person, time, and place - Skin No breakdown Normacephalic Scalp surgical site intact - Eyes No abnormalities - ENMT No abnormalities - Neck No abnormalities - CVS RRR - Chest No abnormalities - Resp Clear to auscultation - Abd + bowel sounds - GI Soft Deferred - No abnormalities - Ext no edema - MSK 3-4+/5 weakness in both lower extremities. - Neuro Diffuse weakness, incoordination and unsteady gait - Psych Moderate depression. ASSESSMENT: Pt. is a 63 yo Right-handed female.On 01/25/2019 she was admitted to [facility] with diagnosis Brain Mass.Her impairment category is Brain Dysfunction 02 - Non-trau matic Brain Dysfunction (02.1).Pre-morbidly, Pt. was independent/mod-I in Locomotion, Safety Awarenes s, Balance, Social Cognition, Transfers Control, Sphincter Control, Self-Care, Communication, and End urance; and she had good Locomotion, Safety Awareness, Balance, Social Cognition, Transfers Control, Sphincter Control, Self-Care, Communication, and Endurance.Currently, she has deficits of Locomotion, Balance, Safety Awareness, Transfers Control, Self-Care, Endurance, and Communication.Pt. is now ref erred to [facility] for acute in-patient rehabilitation in order to maximize p atient's functional independence in activities of daily living, strength, ROM, and mobility.- Rehab G oal Patient has realistic goal of being discharged at assistance level 6-Danielle to reside at Home with Fam adriana/Relatives. MDM/PLAN: - Physical Therapy Gait dysfunction - to improve, our physical therapists will perform initial evaluation of pt's statu s upon admission and devise an individualized program for Gait Training, and Wheel Chair mobility Inability to transfer - to improve, our physical therapists will perform initial evaluation of pt's status upon admission and devise an individualized program for Bed mobility Need for home safety evaluation - to improve, our physical therapists will perform initial evaluatio n of pt's status upon admission and devise an individualized program for Home Evaluation Need in caregiver upon discharge - to improve, our physical therapists will perform initial evaluati on of pt's status upon admission and devise an individualized program for Caregiver Training New precaution - to improve, our physical therapists will perform initial evaluation of pt's status upon admission and devise an individualized program for Patient precaution education Poor balance - to improve, our physical therapists will perform initial evaluation of pt's status up on admission and devise an individualized program for Balance Training Poor endurance - to improve, our physical therapists will perform initial evaluation of pt's status upon admission and devise an individualized program for Endurance Training Weakness - to improve, our physical therapists will perform initial evaluation of pt's status upon a dmission and devise an individualized program for Aquatic Therapy, Neuromuscular Reeducation, and Str engthening Achieving independence - to improve, our physical therapists will perform initial evaluation of pt's status upon admission and devise an individualized program for Community Reintegration Activities - Occupational Therapy ADL deficits - to improve, our occupation therapists will perform initial evaluation of pt's status upon admission and devise an individualized program for Bathing, Bed mobility, Community Reintegratio n, Cooking, Dressing, Eating, Fine Motor Skills, Grooming, Homemaking, Kitchen Mobility, Laundry, Pat ient Education, Safety Awareness, Splinting - Positioning, Transfers(Toilet, Tub, Shower), and Wheel Chair Management Need for client care consultant - to improve, our occupation therapists will perform initial evaluation of pt's status upon admission and devise an individualized program for Caregiver Training Weakness - to improve, our occupation therapists will perform initial evaluation of pt's status upon admission and devise an individualized program for Aquatic Therapy, Balance, Endurance, UE ROM, and UE strengthening - Other See attached MAR (Medication Administration Record) Glenn Ernandez.pdf See attached MAR (Medication Administration Record) - Diet Type Continue Regular - Diet - Liquid Texture Continue Regular - Tube Feed Continue N/A - Bladder care per protocol - Fall Precaution Bed alarm TABS alarm Wheel chair alarm - Skin care per protocol - Diet - Solid Texture Continue Regular - Shower allowing shower for Dementia, TBI, Stroke, or others FUNCTIONAL STATUS: UPDATED AT WEEKLY TEAM CONFERENCE - Bladder Same accident frequency: 7-Ind - No accidents in the past 7 days - Bowel Same accident frequency: 7-Ind - No accidents in the past 7 days - Walking Same score based on distance walked: 0(N/A) - Wheelchair Same score based on distance traveled: 0(N/A) Same score based on distance traveled: 3(>=150ft) FUNCTIONAL STATUS: - Self-Care A. Eating Danielle B. Grooming Paresh C. Bathing modA D. Dressing - Upper modA E. Dressing - Lower Paresh F. Toileting modA - Sphincter Control G. Bladder control modA H. Bowel control Paresh - Transfers Control I. Bed/Chair/Wheelchair maxA J. Toilet maxA K. Tub/Shower maxA - Locomotion L. Walk/Wheelchair (B) maxA M. Stairs ADNO - Communication N. Comprehension (B) Paresh O. Expression (B) Paresh - Social Cognition P. Social Interaction sup Q. Problem Solving sup R. Memory sup - Endurance Good - Balance Good - Safety Awareness Good QI SCORES: - Self-Care A. Eating 05-Setup or clean-up assistance B. Oral hygiene 05-Setup or clean-up assistance C. Toileting hygiene 03-Partial/moderate assistance E. Shower/bathe self 02-Substantial/maximal assistance F. Upper body dressing 03-Partial/moderate assistance G. Lower body dressing 02-Substantial/maximal assistance H. Putting on/taking off footwear 01-Dependent - Mobility A. Roll left and right 03-Partial/moderate assistance B. Sit to lying 02-Substantial/maximal assistance C. Lying to sitting on side of bed 02-Substantial/maximal assistance D. Sit to stand 02-Substantial/maximal assistance E. Chair/[id number]-[id number] transfer 02-Substantial/maximal assistance F. Toilet transfer 02-Substantial/maximal assistance G. Car transfer 88-Not attempted due to medical condition or safety concerns I. Walk 10 feet 88-Not attempted due to medical condition or safety concerns J. Walk 50 feet with two turns 88-Not attempted due to medical condition or safety concerns K. Walk 150 feet 88-Not attempted due to medical condition or safety concerns L. Walking 10 feet on uneven surfaces 88-Not attempted due to medical condition or safety concerns M. 1 step (curb) 88-Not attempted due to medical condition or safety concerns N. 4 steps 88-Not attempted due to medical condition or safety concerns O. 12 steps 88-Not attempted due to medical condition or safety concerns P. Picking up object 88-Not attempted due to medical condition or safety concerns R. Wheel 50 feet with two turns 02-Substantial/maximal assistance S. Wheel 150 feet 02-Substantial/maximal assistance - Bladder and Bowel Bladder continence 0-Always continent Bowel continence 0-Always continent - Endurance Poor - Balance Poor - Safety Awareness Fair CURRENT FUNC. DEFICITS: Self-Care, Mobility, Endurance, Balance, and Safety Awareness SIGNATURE PANEL: (DIMPLING MACHINE OPERATOR)
[2019-03-20] MEDS ORDERED: TRIAMCINOLONE 0.1% OINT 15 GM TOP SCH (20:00)
[2019-03-20] MEDS: MAGNESIUM OXIDE 400 MG TAB PO SCH (20:13)
[2019-03-20] MEDS: ALPRAZOLAM 0.5 MG TABLET PO SCH (20:13)
[2019-03-20] MEDS: MELATONIN 3 MG TABLET PO SCH (20:13)
[2019-03-20] MEDS: TRIAMCINOLONE 0.1% CREAM 15GM TOP SCH (20:13)
--- NOTE | 2019-03-20 23:45 | PN ---
Date of Progress Note: 03/20/2019 Subjective: Patient was seen this morning for followup. No new complaints or problems reported by gianna alberto. Objective: General: Lying in bed, not in distress. Vital Signs: Reviewed. HEENT: Unremarkable. Lungs: Clear to auscultation. Heart: Sounds normal. Abdomen: Soft. Bowel sounds normal. No guarding, rigidity, tenderness, or distention. Extremities: No leg edema. Impression: 1.Stroke with left-sided hemiparesis. 2.Insomnia. 3.Hypertension. Plan: Continue current medications. Patient is sleeping very well at nighttime with current alprazo mccall and melatonin. Continue amlodipine. Continue current DVT prophylaxis and I will see her tomorro w for followup. JULIO/MODL Voice ID: [id number] Report ID: [id number]
[2019-03-21] MEDS: TRIAMCINOLONE 0.1% CREAM 15GM TOP SCH ×2 (08:00→18:50)
[2019-03-21] MEDS: CLOTRIMAZOLE 1% CREAM 15 GM TOP SCH ×2 (08:00→18:50)
[2019-03-21] MEDS: DULOXETINE 20 MG CAP PO SCH (08:13)
--- NOTE | 2019-03-21 09:39 | FAST ---
SHIFT START DATE/TIME: 03/20/2019 07:00 (SUPERVISOR CABINETMAKER) SHIFT END DATE/TIME: 03/20/2019 19:00 (SUPERVISOR CABINETMAKER) NAME GLENN WALKER DATE OF : 1955 DATE OF ADMISSION: 03/11/2019 14:31 (SUPERVISOR CABINETMAKER) PHONE: AGE: 63 N# [id number] GENDER: Female ENCOUNTER PHYSICIAN: Dr. Sawyer Rios M.D. 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 - Stroke 01 - Other Stroke (01.9) Intracranial Hemorrhage. Right [place] Infarct. EATING: EATING - STEP 1: Does the patient complete the activity by him/herself with no assistance (physical, verbal/nonverbal cueing, setup/clean-up)? No. EATING - STEP 2: Does the patient need only setup/clean-up assistance from one helper? No. EATING - STEP 3: Does the patient need only verbal/nonverbal cueing or touching/steadying/contact guard assistance fro m one helper? No. EATING - STEP 4: Does the patient need physical assistance - for example lifting or trunk support from one helper - wi th the helper providing less than half of the effort? Yes. 1. [id number] ADMISSION PERFORMANCE: Partial/moderate assistance CODE: 03 ORAL HYGIENE: ORAL HYGIENE - STEP 1: Does the patient complete the activity by him/herself with no assistance (physical, verbal/nonverbal cueing, setup/clean-up)? No. ORAL HYGIENE - STEP 2: Does the patient need only setup/clean-up assistance from one helper? No. ORAL HYGIENE - STEP 3: Does the patient need only verbal/nonverbal cueing or touching/steadying/contact guard assistance fro m one helper? Yes. 1. [id number] ADMISSION PERFORMANCE: Supervision or touching assistance CODE: 04 TOILETING HYGIENE: TOILETING HYGIENE - STEP 1: Does the patient complete the activity by him/herself with no assistance (physical, verbal/nonverbal cueing, setup/clean-up)? No. TOILETING HYGIENE - STEP 2: Does the patient need only setup/clean-up assistance from one helper? No. TOILETING HYGIENE - STEP 3: Does the patient need only verbal/nonverbal cueing or touching/steadying/contact guard assistance fro m one helper? No. TOILETING HYGIENE - STEP 4: Does the patient need physical assistance - for example lifting or trunk support from one helper - wi th the helper providing less than half of the effort? Yes. 1. [id number] ADMISSION PERFORMANCE: Partial/moderate assistance CODE: 03 BATHING: Not assessed/no information CODE: - DRESSING - UPPER BODY: Not assessed/no information CODE: - DRESSING - LOWER BODY: Not assessed/no information CODE: - PUTTING ON/TAKING OFF FOOTWEAR: Not assessed/no information CODE: - ROLL LEFT AND RIGHT: Not assessed/no information CODE: - SIT TO LYING: Not assessed/no information CODE: - LYING TO SITTING: LYING TO SITTING ON SIDE OF BED - STEP 1: Does the patient complete the activity by him/herself with no assistance (physical, verbal/nonverbal cueing, setup/clean-up)? No. LYING TO SITTING ON SIDE OF BED - STEP 2: Does the patient need only setup/clean-up assistance from one helper? No. LYING TO SITTING ON SIDE OF BED - STEP 3: Does the patient need only verbal/nonverbal cueing or touching/steadying/contact guard assistance fro m one helper? Yes. 1. [id number] ADMISSION PERFORMANCE: Supervision or touching assistance CODE: 04 SIT TO STAND: SIT TO STAND - STEP 1: Does the patient complete the activity by him/herself with no assistance (physical, verbal/nonverbal cueing, setup/clean-up)? No. SIT TO STAND - STEP 2: Does the patient need only setup/clean-up assistance from one helper? No. SIT TO STAND - STEP 3: Does the patient need only verbal/nonverbal cueing or touching/steadying/contact guard assistance fro m one helper? No. SIT TO STAND - STEP 4: Does the patient need physical assistance - for example lifting or trunk support from one helper - wi th the helper providing less than half of the effort? Yes. 1. [id number] ADMISSION PERFORMANCE: Partial/moderate assistance CODE: 03 TRANSFERS: BED, CHAIR: CHAIR/[id number] TRANSFER - STEP 1: Does the patient complete the activity by him/herself with no assistance (physical, verbal/nonverbal cueing, setup/clean-up)? No. CHAIR/[id number] TRANSFER - STEP 2: Does the patient need only setup/clean-up assistance from one helper? No. CHAIR/[id number] TRANSFER - STEP 3: Does the patient need only verbal/nonverbal cueing or touching/steadying/contact guard assistance fro m one helper? No. CHAIR/[id number] TRANSFER - STEP 4: Does the patient need physical assistance - for example lifting or trunk support from one helper - wi th the helper providing less than half of the effort? Yes. 1. [id number] ADMISSION PERFORMANCE: Partial/moderate assistance CODE: 03 TRANSFER TOILET: TOILET TRANSFER - STEP 1: Does the patient complete the activity by him/herself with no assistance (physical, verbal/nonverbal cueing, setup/clean-up)? No. TOILET TRANSFER - STEP 2: Does the patient need only setup/clean-up assistance from one helper? No. TOILET TRANSFER - STEP 3: Does the patient need only verbal/nonverbal cueing or touching/steadying/contact guard assistance fro m one helper? No. TOILET TRANSFER - STEP 4: Does the patient need physical assistance - for example lifting or trunk support from one helper - wi th the helper providing less than half of the effort? Yes. 1. [id number] ADMISSION PERFORMANCE: Partial/moderate assistance CODE: 03 TRANSFERS: CAR: Not assessed/no information CODE: - WALK 10 FEET: Not assessed/no information CODE: - 1 STEP (CURB): Not assessed/no information CODE: - PICKING UP OBJECT: Not assessed/no information CODE: - DOES THE PATIENT USE A WHEELCHAIR/SCOOTER? CODE: EXPR WHEEL 50 FEET WITH TWO TURNS: Not assessed/no information CODE: - INDICATE THE TYPE OF WHEELCHAIR/SCOOTER USED: CODE: EXPR WHEEL 150 FEET: Not assessed/no information CODE: - INDICATE THE TYPE OF WHEELCHAIR/SCOOTER USED: CODE: EXPR BLADDER AND BOWEL: H350. BLADDER CONTINENCE (3-DAY ASSESSMENT PERIOD): Always continent (no documented incontinence) CODE: 0 H400. BOWEL CONTINENCE (3-DAY ASSESSMENT PERIOD): Always continent CODE: 0 SIGNATURE PANEL: The following modified sections: 1. [id number] Admission Performance, 1. [id number] Admission Performance, 1. [id number] Admission Performance, 1. [id number] Admission Performance, 1. [id number] Admission Performance, 1. [id number] Admission Performance, 1. IC5060E Admission Performance, Code, H350. Bladder Continence ( 3-day assessment period), H400. Bowel Continence (3-day assessment period) were [electronically] sign ed by Joel Lim on WedMar 21 2019 09:38:16 GMT-0600 (Central Standard Time)
--- NOTE | 2019-03-21 10:40 | FAST ---
SHIFT START DATE/TIME: 03/21/2019 07:00 (MANAGER STYLIST) SHIFT END DATE/TIME: 03/21/2019 19:00 (MANAGER STYLIST) NAME GLENN WALKER DATE OF : 1955 DATE OF ADMISSION: 03/11/2019 14:31 (MANAGER STYLIST) PHONE: AGE: 63 N# [id number] GENDER: Female ENCOUNTER PHYSICIAN: Dr. Sawyer Rios M.D. 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 - Stroke 01 - Other Stroke (01.9) Intracranial Hemorrhage. Right [place] Infarct. EATING: EATING - STEP 1: Does the patient complete the activity by him/herself with no assistance (physical, verbal/nonverbal cueing, setup/clean-up)? No. EATING - STEP 2: Does the patient need only setup/clean-up assistance from one helper? Yes. 1. [id number] ADMISSION PERFORMANCE: Setup or clean-up assistance CODE: 05 ORAL HYGIENE: ORAL HYGIENE - STEP 1: Does the patient complete the activity by him/herself with no assistance (physical, verbal/nonverbal cueing, setup/clean-up)? No. ORAL HYGIENE - STEP 2: Does the patient need only setup/clean-up assistance from one helper? Yes. 1. [id number] ADMISSION PERFORMANCE: Setup or clean-up assistance CODE: 05 TOILETING HYGIENE: TOILETING HYGIENE - STEP 1: Does the patient complete the activity by him/herself with no assistance (physical, verbal/nonverbal cueing, setup/clean-up)? No. TOILETING HYGIENE - STEP 2: Does the patient need only setup/clean-up assistance from one helper? No. TOILETING HYGIENE - STEP 3: Does the patient need only verbal/nonverbal cueing or touching/steadying/contact guard assistance fro m one helper? Yes. 1. [id number] ADMISSION PERFORMANCE: Supervision or touching assistance CODE: 04 BATHING: Not assessed/no information CODE: - DRESSING - UPPER BODY: Not assessed/no information CODE: - DRESSING - LOWER BODY: Not assessed/no information CODE: - PUTTING ON/TAKING OFF FOOTWEAR: Not assessed/no information CODE: - ROLL LEFT AND RIGHT: Not assessed/no information CODE: - SIT TO LYING: Not assessed/no information CODE: - LYING TO SITTING: LYING TO SITTING ON SIDE OF BED - STEP 1: Does the patient complete the activity by him/herself with no assistance (physical, verbal/nonverbal cueing, setup/clean-up)? No. LYING TO SITTING ON SIDE OF BED - STEP 2: Does the patient need only setup/clean-up assistance from one helper? No. LYING TO SITTING ON SIDE OF BED - STEP 3: Does the patient need only verbal/nonverbal cueing or touching/steadying/contact guard assistance fro m one helper? Yes. 1. [id number] ADMISSION PERFORMANCE: Supervision or touching assistance CODE: 04 SIT TO STAND: SIT TO STAND - STEP 1: Does the patient complete the activity by him/herself with no assistance (physical, verbal/nonverbal cueing, setup/clean-up)? No. SIT TO STAND - STEP 2: Does the patient need only setup/clean-up assistance from one helper? No. SIT TO STAND - STEP 3: Does the patient need only verbal/nonverbal cueing or touching/steadying/contact guard assistance fro m one helper? No. SIT TO STAND - STEP 4: Does the patient need physical assistance - for example lifting or trunk support from one helper - wi th the helper providing less than half of the effort? Yes. 1. [id number] ADMISSION PERFORMANCE: Partial/moderate assistance CODE: 03 TRANSFERS: BED, CHAIR: CHAIR/[id number] TRANSFER - STEP 1: Does the patient complete the activity by him/herself with no assistance (physical, verbal/nonverbal cueing, setup/clean-up)? No. CHAIR/[id number]-[id number] TRANSFER - STEP 2: Does the patient need only setup/clean-up assistance from one helper? No. CHAIR/[id number] TRANSFER - STEP 3: Does the patient need only verbal/nonverbal cueing or touching/steadying/contact guard assistance fro m one helper? No. CHAIR/[id number] TRANSFER - STEP 4: Does the patient need physical assistance - for example lifting or trunk support from one helper - wi th the helper providing less than half of the effort? Yes. 1. [id number] ADMISSION PERFORMANCE: Partial/moderate assistance CODE: 03 TRANSFER TOILET: TOILET TRANSFER - STEP 1: Does the patient complete the activity by him/herself with no assistance (physical, verbal/nonverbal cueing, setup/clean-up)? No. TOILET TRANSFER - STEP 2: Does the patient need only setup/clean-up assistance from one helper? No. TOILET TRANSFER - STEP 3: Does the patient need only verbal/nonverbal cueing or touching/steadying/contact guard assistance fro m one helper? Yes. 1. [id number] ADMISSION PERFORMANCE: Supervision or touching assistance CODE: 04 TRANSFERS: CAR: Not assessed/no information CODE: - WALK 10 FEET: Not assessed/no information CODE: - 1 STEP (CURB): Not assessed/no information CODE: - PICKING UP OBJECT: Not assessed/no information CODE: - DOES THE PATIENT USE A WHEELCHAIR/SCOOTER? CODE: EXPR WHEEL 50 FEET WITH TWO TURNS: Not assessed/no information CODE: - INDICATE THE TYPE OF WHEELCHAIR/SCOOTER USED: CODE: EXPR WHEEL 150 FEET: Not assessed/no information CODE: - INDICATE THE TYPE OF WHEELCHAIR/SCOOTER USED: CODE: EXPR BLADDER AND BOWEL: H350. BLADDER CONTINENCE (3-DAY ASSESSMENT PERIOD): Always continent (no documented incontinence) CODE: 0 H400. BOWEL CONTINENCE (3-DAY ASSESSMENT PERIOD): Always continent CODE: 0 SIGNATURE PANEL: The following modified sections: 1. [id number] Admission Performance, 1. [id number] Admission Performance, 1. [id number] Admission Performance, 1. [id number] Admission Performance, 1. [id number] Admission Performance, 1. [id number] Admission Performance, 1. [id number] Admission Performance, 1. [id number] Admission Performance , 1. [id number] Admission Performance, Code, H350. Bladder Continence (3-day assessment period), H400. B owel Continence (3-day assessment period) were [electronically] signed by Joel Lim on WedMar 21 10:39:08 GMT-0600 (Central Standard Time)
[2019-03-21] MEDS: AMLODIPINE 10 MG TAB PO SCH (10:54)
[2019-03-21] MEDS: ENOXAPARIN 40 MG/0.4 ML SQ SCH (16:12)
--- NOTE | 2019-03-21 17:27 | R.PN ---
ENCOUNTER DATE AND TIME: 03/21/2019 17:24 (MANAGER HRIS) NAME GLENN WALKER DATE OF : 1955 DATE OF ADMISSION: 03/11/2019 14:31 (MANAGER HRIS) Brain MassIntracranial HemorrhageRight [place] InfarctCHIEF COMPLAINT: Left sided weakness and debility SUBJECTIVE: Pt denied any depression. Pt denied any Shortness of Breath. She denies headache or nausea. She is making better progress with physical and occupational therapy. Her ADLs were performed with minimum assistance. Ambulated 250' with contact guard to minimum assistance using a rolling walker. On Cipro for UTI. Hgb 11.8, WBC 9.3, prealbumin 20.4. She has a mildly pruritic flat non-daisha petechial rash on the right medial leg measuring about 5" b y 3". The rash has the appearance of contact dermatitis. Treated with topical steroids. VITAL SIGNS Temperature: 97.9 F SBP/DBP: 132/78 Pulse: 69 Resp: 16 MEDICATION ALLERGIES: No Known Drug Allergies (NKDA) ENVIRONMENTAL ALLERGIES: None Known - Substance Allergies None Known - Other Allergies None Known NURSING: - Shower allowing shower - Bladder care per protocol - Skin care per protocol PRECAUTIONS: - Fall Precaution Bed alarm TABS alarm Wheel chair alarm ACTIVITIES OOB only with supervision THERAPIES: - Occupational Therapy Cognitive Retraining. Visual Perceptual Training. - Dietary and Nutrition Adequate Nutrition. Nutritional Education. Nutritional Supplements. - Speech Therapy Cognitive Training. Expressive Language Skills. Memory Strategies. Receptive Language Skills. Speech Intelligibility Training. PHYSICAL EXAM - Gen Alert and awake Lying in bed No apparent distress Oriented to: person, time, and place - Skin No breakdown Normacephalic Scalp surgical site intact - Eyes No abnormalities - ENMT No abnormalities - Neck No abnormalities - CVS RRR - Chest No abnormalities - Resp Clear to auscultation - Abd + bowel sounds - GI Soft Deferred - No abnormalities - Ext no edema - MSK 3-4+/5 weakness in both lower extremities. - Neuro Diffuse weakness, incoordination and unsteady gait - Psych Moderate depression. ASSESSMENT: Pt. is a 63 yo Right-handed female.On 01/25/2019 she was admitted to [facility] with diagnosis Brain Mass.Her impairment category is Brain Dysfunction 02 - Non-trau matic Brain Dysfunction (02.1).Pre-morbidly, Pt. was independent/mod-I in Locomotion, Safety Awarenes s, Balance, Social Cognition, Transfers Control, Sphincter Control, Self-Care, Communication, and End urance; and she had good Locomotion, Safety Awareness, Balance, Social Cognition, Transfers Control, Sphincter Control, Self-Care, Communication, and Endurance.Currently, she has deficits of Locomotion, Balance, Safety Awareness, Transfers Control, Self-Care, Endurance, and Communication.Pt. is now ref erred to [facility] for acute in-patient rehabilitation in order to maximize p atient's functional independence in activities of daily living, strength, ROM, and mobility.- Rehab G oal Patient has realistic goal of being discharged at assistance level 6-Danielle to reside at Home with Fam adriana/Relatives. MDM/PLAN: - Physical Therapy Gait dysfunction - to improve, our physical therapists will perform initial evaluation of pt's statu s upon admission and devise an individualized program for Gait Training, and Wheel Chair mobility Inability to transfer - to improve, our physical therapists will perform initial evaluation of pt's status upon admission and devise an individualized program for Bed mobility Need for home safety evaluation - to improve, our physical therapists will perform initial evaluatio n of pt's status upon admission and devise an individualized program for Home Evaluation Need in caregiver upon discharge - to improve, our physical therapists will perform initial evaluati on of pt's status upon admission and devise an individualized program for Caregiver Training New precaution - to improve, our physical therapists will perform initial evaluation of pt's status upon admission and devise an individualized program for Patient precaution education Poor balance - to improve, our physical therapists will perform initial evaluation of pt's status up on admission and devise an individualized program for Balance Training Poor endurance - to improve, our physical therapists will perform initial evaluation of pt's status upon admission and devise an individualized program for Endurance Training Weakness - to improve, our physical therapists will perform initial evaluation of pt's status upon a dmission and devise an individualized program for Aquatic Therapy, Neuromuscular Reeducation, and Str engthening Achieving independence - to improve, our physical therapists will perform initial evaluation of pt's status upon admission and devise an individualized program for Community Reintegration Activities - Occupational Therapy ADL deficits - to improve, our occupation therapists will perform initial evaluation of pt's status upon admission and devise an individualized program for Bathing, Bed mobility, Community Reintegratio n, Cooking, Dressing, Eating, Fine Motor Skills, Grooming, Homemaking, Kitchen Mobility, Laundry, Pat ient Education, Safety Awareness, Splinting - Positioning, Transfers(Toilet, Tub, Shower), and Wheel Chair Management Need for senior caregiver - to improve, our occupation therapists will perform initial evaluation of pt's status upon admission and devise an individualized program for Caregiver Training Weakness - to improve, our occupation therapists will perform initial evaluation of pt's status upon admission and devise an individualized program for Aquatic Therapy, Balance, Endurance, UE ROM, and UE strengthening - Other See attached MAR (Medication Administration Record) Oma Glenn.pdf See attached MAR (Medication Administration Record) - Diet Type Continue Regular - Diet - Liquid Texture Continue Regular - Tube Feed Continue N/A - Bladder care per protocol - Fall Precaution Bed alarm TABS alarm Wheel chair alarm - Skin care per protocol - Diet - Solid Texture Continue Regular - Shower allowing shower for Dementia, TBI, Stroke, or others FUNCTIONAL STATUS: UPDATED AT WEEKLY TEAM CONFERENCE - Bladder Same accident frequency: 7-Ind - No accidents in the past 7 days - Bowel Same accident frequency: 7-Ind - No accidents in the past 7 days - Walking Same score based on distance walked: 0(N/A) - Wheelchair Same score based on distance traveled: 0(N/A) Same score based on distance traveled: 3(>=150ft) FUNCTIONAL STATUS: - Self-Care A. Eating Danielle B. Grooming Paresh C. Bathing modA D. Dressing - Upper modA E. Dressing - Lower Paresh F. Toileting modA - Sphincter Control G. Bladder control modA H. Bowel control Paresh - Transfers Control I. Bed/Chair/Wheelchair maxA J. Toilet maxA K. Tub/Shower maxA - Locomotion L. Walk/Wheelchair (B) maxA M. Stairs ADNO - Communication N. Comprehension (B) Paresh O. Expression (B) Paresh - Social Cognition P. Social Interaction sup Q. Problem Solving sup R. Memory sup - Endurance Good - Balance Good - Safety Awareness Good QI SCORES: - Self-Care A. Eating 05-Setup or clean-up assistance B. Oral hygiene 05-Setup or clean-up assistance C. Toileting hygiene 03-Partial/moderate assistance E. Shower/bathe self 02-Substantial/maximal assistance F. Upper body dressing 03-Partial/moderate assistance G. Lower body dressing 02-Substantial/maximal assistance H. Putting on/taking off footwear 01-Dependent - Mobility A. Roll left and right 03-Partial/moderate assistance B. Sit to lying 02-Substantial/maximal assistance C. Lying to sitting on side of bed 02-Substantial/maximal assistance D. Sit to stand 02-Substantial/maximal assistance E. Chair/ncz-fh-[id number] transfer 02-Substantial/maximal assistance F. Toilet transfer 02-Substantial/maximal assistance G. Car transfer 88-Not attempted due to medical condition or safety concerns I. Walk 10 feet 88-Not attempted due to medical condition or safety concerns J. Walk 50 feet with two turns 88-Not attempted due to medical condition or safety concerns K. Walk 150 feet 88-Not attempted due to medical condition or safety concerns L. Walking 10 feet on uneven surfaces 88-Not attempted due to medical condition or safety concerns M. 1 step (curb) 88-Not attempted due to medical condition or safety concerns N. 4 steps 88-Not attempted due to medical condition or safety concerns O. 12 steps 88-Not attempted due to medical condition or safety concerns P. Picking up object 88-Not attempted due to medical condition or safety concerns R. Wheel 50 feet with two turns 02-Substantial/maximal assistance S. Wheel 150 feet 02-Substantial/maximal assistance - Bladder and Bowel Bladder continence 0-Always continent Bowel continence 0-Always continent - Endurance Poor - Balance Poor - Safety Awareness Fair CURRENT FUNC. DEFICITS: Self-Care, Mobility, Endurance, Balance, and Safety Awareness SIGNATURE PANEL: (MANAGER HRIS)
[2019-03-21] MEDS: MELATONIN 3 MG TABLET PO SCH (18:51)
[2019-03-21] MEDS: DOCUSATE NA/SENNA CONC 1 TAB PO PRN (18:51)
[2019-03-21] MEDS: MAGNESIUM OXIDE 400 MG TAB PO SCH (18:51)
[2019-03-21] MEDS: ALPRAZOLAM 0.5 MG TABLET PO SCH (21:30)
--- NOTE | 2019-03-22 00:07 | PN ---
Date of Progress Note: 03/21/2019 Subjective: Patient was seen this morning for followup. She did not sleep as well last night as she reported no new complaints or problems reported. Objective: Vital Signs: Reviewed. HEENT: Unremarkable. Lungs: Clear to auscultation. Heart: Sounds normal. Abdomen: Soft. Bowel sounds normal. No guarding, rigidity, tenderness, or distention. Extremities: No leg edema. Neurological: Left-sided hemiparesis unchanged. Impression: 1.Stroke with left-sided hemiparesis. 2.Hypertension. 3.Insomnia. Plan: Continue current medication. Continue current physical therapy. Continue current alprazolam and melatonin. I will see her tomorrow for followup. JULIO/MODL Voice ID: [id number] Report ID: [id number]
[2019-03-22] MEDS: TRIAMCINOLONE 0.1% CREAM 15GM TOP SCH ×2 (08:00→20:16)
[2019-03-22] MEDS: CLOTRIMAZOLE 1% CREAM 15 GM TOP SCH ×2 (08:00→20:00)
[2019-03-22] MEDS: DULOXETINE 20 MG CAP PO SCH (09:43)
[2019-03-22] MEDS: AMLODIPINE 10 MG TAB PO SCH (09:43)
--- NOTE | 2019-03-22 14:49 | PN ---
Date of Progress Note: 03/22/2019 Subjective: Patient was seen this morning for followup. No new complaints or problems reported by patient, lying in bed, she slept very well last night without any new complaints. She has some rash and itching on her lower leg and with application of topical cream she feels better. Itching has gone away. Rash is still present. Objective: Vital Signs: Reviewed. HEENT: Examination unremarkable. Lungs: Clear to auscultation. Heart: Sounds normal. Abdomen: Soft. Bowel sounds normal. No guarding, rigidity, tenderness, or distention. Extremities Exam: No leg edema. Skin Examination: Shows pink macular rash in the lower part of the right medial leg and very small area on the left lower leg. Impression: 1. Dermatitis. 2. Hypertension. 3. Insomnia. Plan: We will continue current medications. Continue current antihypertension medication. DVT prophylaxis and alprazolam to help with insomnia and I will see her tomorrow for followup. Continue current physical therapy under guidance of Dr. Rios. JULIO/LENCHO Voice ID: [id number] Report ID: [id number] MTDD
--- NOTE | 2019-03-22 15:37 | PN ---
Date of Progress Note: 03/22/2019 Subjective: Patient was seen this morning for followup. No new complaints or problems reported by gianna alberto, lying in bed, she slept very well last night without any new complaints. She has some rash a nd itching on her lower leg and with application of topical cream she feels better. Itching has gone away. Rash is still present. Objective: Vital Signs: Reviewed. HEENT: Examination unremarkable. Lungs: Clear to auscultation. Heart: Sounds normal. Abdomen: Soft. Bowel sounds normal. No guarding, rigidity, tenderness, or distention. Extremities Exam: No leg edema. Skin Examination: Shows pink macular rash in the lower part of the right medial leg and very small a trudi on the left lower leg. Impression: 1.Dermatitis. 2.Hypertension. 3.Insomnia. Plan: We will continue current medications. Continue current antihypertension medication. DVT prop hylaxis and alprazolam to help with insomnia and I will see her tomorrow for followup. Continue curr ent physical therapy under guidance of Dr. Rios. JULIO/MODL Voice ID: [id number] Report ID: [id number]
[2019-03-22] MEDS: ENOXAPARIN 40 MG/0.4 ML SQ SCH (16:08)
--- NOTE | 2019-03-22 17:20 | R.PN ---
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 Pt denied any Shortness of Breath. She denies headache or nausea. She is making better progress with physical and occupational therapy. Her ADLs were performed with minimum assistance. Ambulated 300' with contact guard to minimum assistance using a rolling walker. On Cipro for UTI. Hgb 11.8, WBC 9.3, prealbumin 20.4. She has a mildly pruritic flat non-daisha petechial rash on the right medial leg measuring about 5" b y 3". The rash has the appearance of contact dermatitis. Treated with topical steroids. VITAL SIGNS Temperature: 97.9 F SBP/DBP: 134/63 Pulse: 82 Resp: 16 MEDICATION ALLERGIES: No Known Drug Allergies (NKDA) ENVIRONMENTAL ALLERGIES: None Known - Substance Allergies None Known - Other Allergies None Known NURSING: - Shower allowing shower - Bladder care per protocol - Skin care per protocol PRECAUTIONS: - Fall Precaution Bed alarm TABS alarm Wheel chair alarm ACTIVITIES OOB only with supervision THERAPIES: - Occupational Therapy Cognitive Retraining. Visual Perceptual Training. - Dietary and Nutrition Adequate Nutrition. Nutritional Education. Nutritional Supplements. - Speech Therapy Cognitive Training. Expressive Language Skills. Memory Strategies. Receptive Language Skills. Speech Intelligibility Training. PHYSICAL EXAM - Gen Alert and awake Lying in bed No apparent distress Oriented to: person, time, and place - Skin No breakdown Normacephalic Scalp surgical site intact - Eyes No abnormalities - ENMT No abnormalities - Neck No abnormalities - CVS RRR - Chest No abnormalities - Resp Clear to auscultation - Abd + bowel sounds - GI Soft Deferred - No abnormalities - Ext no edema - MSK 3-4+/5 weakness in both lower extremities. - Neuro Diffuse weakness, incoordination and unsteady gait - Psych Moderate depression. ASSESSMENT: Pt. 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 was independent/mod-I in Locomotion, Safety Awarenes s, Balance, Social Cognition, Transfers Control, Sphincter Control, Self-Care, Communication, and End urance; and she had good Locomotion, Safety Awareness, Balance, Social Cognition, Transfers Control, Sphincter Control, Self-Care, Communication, and Endurance.Currently, she has deficits of Locomotion, Balance, Safety Awareness, Transfers Control, Self-Care, Endurance, and Communication.Pt. is now ref erred to [facility] for acute in-patient rehabilitation in order to maximize p atient's functional independence in activities of daily living, strength, ROM, and mobility.- Rehab G oal Patient has realistic goal of being discharged at assistance level 6-Danielle to reside at Home with Fam adriana/Relatives. MDM/PLAN: - Physical Therapy Gait dysfunction - to improve, our physical therapists will perform initial evaluation of pt's statu s upon admission and devise an individualized program for Gait Training, and Wheel Chair mobility Inability to transfer - to improve, our physical therapists will perform initial evaluation of pt's status upon admission and devise an individualized program for Bed mobility Need for home safety evaluation - to improve, our physical therapists will perform initial evaluatio n of pt's status upon admission and devise an individualized program for Home Evaluation Need in caregiver upon discharge - to improve, our physical therapists will perform initial evaluati on of pt's status upon admission and devise an individualized program for Caregiver Training New precaution - to improve, our physical therapists will perform initial evaluation of pt's status upon admission and devise an individualized program for Patient precaution education Poor balance - to improve, our physical therapists will perform initial evaluation of pt's status up on admission and devise an individualized program for Balance Training Poor endurance - to improve, our physical therapists will perform initial evaluation of pt's status upon admission and devise an individualized program for Endurance Training Weakness - to improve, our physical therapists will perform initial evaluation of pt's status upon a dmission and devise an individualized program for Aquatic Therapy, Neuromuscular Reeducation, and Str engthening Achieving independence - to improve, our physical therapists will perform initial evaluation of pt's status upon admission and devise an individualized program for Community Reintegration Activities - Occupational Therapy ADL deficits - to improve, our occupation therapists will perform initial evaluation of pt's status upon admission and devise an individualized program for Bathing, Bed mobility, Community Reintegratio n, Cooking, Dressing, Eating, Fine Motor Skills, Grooming, Homemaking, Kitchen Mobility, Laundry, Pat ient Education, Safety Awareness, Splinting - Positioning, Transfers(Toilet, Tub, Shower), and Wheel Chair Management Need for dog daycare provider - to improve, our occupation therapists will perform initial evaluation of pt's status upon admission and devise an individualized program for Caregiver Training Weakness - to improve, our occupation therapists will perform initial evaluation of pt's status upon admission and devise an individualized program for Aquatic Therapy, Balance, Endurance, UE ROM, and UE strengthening - Other See attached MAR (Medication Administration Record) Oma Glenn.pdf See attached MAR (Medication Administration Record) - Diet Type Continue Regular - Diet - Liquid Texture Continue Regular - Tube Feed Continue N/A - Bladder care per protocol - Fall Precaution Bed alarm TABS alarm Wheel chair alarm - Skin care per protocol - Diet - Solid Texture Continue Regular - Shower allowing shower for Dementia, TBI, Stroke, or others FUNCTIONAL STATUS: UPDATED AT WEEKLY TEAM CONFERENCE - Bladder Same accident frequency: 7-Ind - No accidents in the past 7 days - Bowel Same accident frequency: 7-Ind - No accidents in the past 7 days - Walking Same score based on distance walked: 0(N/A) - Wheelchair Same score based on distance traveled: 0(N/A) Same score based on distance traveled: 3(>=150ft) FUNCTIONAL STATUS: - Self-Care A. Eating Danielle B. Grooming Paresh C. Bathing modA D. Dressing - Upper modA E. Dressing - Lower Paresh F. Toileting modA - Sphincter Control G. Bladder control modA H. Bowel control Paresh - Transfers Control I. Bed/Chair/Wheelchair maxA J. Toilet maxA K. Tub/Shower maxA - Locomotion L. Walk/Wheelchair (B) maxA M. Stairs ADNO - Communication N. Comprehension (B) Paresh O. Expression (B) Paresh - Social Cognition P. Social Interaction sup Q. Problem Solving sup R. Memory sup - Endurance Good - Balance Good - Safety Awareness Good QI SCORES: - Self-Care A. Eating 05-Setup or clean-up assistance B. Oral hygiene 05-Setup or clean-up assistance C. Toileting hygiene 03-Partial/moderate assistance E. Shower/bathe self 02-Substantial/maximal assistance F. Upper body dressing 03-Partial/moderate assistance G. Lower body dressing 02-Substantial/maximal assistance H. Putting on/taking off footwear 01-Dependent - Mobility A. Roll left and right 03-Partial/moderate assistance B. Sit to lying 02-Substantial/maximal assistance C. Lying to sitting on side of bed 02-Substantial/maximal assistance D. Sit to stand 02-Substantial/maximal assistance E. Chair/ull-ky-sudhs transfer 02-Substantial/maximal assistance F. Toilet transfer 02-Substantial/maximal assistance G. Car transfer 88-Not attempted due to medical condition or safety concerns I. Walk 10 feet 88-Not attempted due to medical condition or safety concerns J. Walk 50 feet with two turns 88-Not attempted due to medical condition or safety concerns K. Walk 150 feet 88-Not attempted due to medical condition or safety concerns L. Walking 10 feet on uneven surfaces 88-Not attempted due to medical condition or safety concerns M. 1 step (curb) 88-Not attempted due to medical condition or safety concerns N. 4 steps 88-Not attempted due to medical condition or safety concerns O. 12 steps 88-Not attempted due to medical condition or safety concerns P. Picking up object 88-Not attempted due to medical condition or safety concerns R. Wheel 50 feet with two turns 02-Substantial/maximal assistance S. Wheel 150 feet 02-Substantial/maximal assistance - Bladder and Bowel Bladder continence 0-Always continent Bowel continence 0-Always continent - Endurance Poor - Balance Poor - Safety Awareness Fair CURRENT FUNC. 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
--- NOTE | 2019-03-22 17:29 | FAST ---
ENCOUNTER DATE AND TIME: 03/22/2019 08:00 (FOUNDER) NAME GLENN WALKER DATE OF : 1955 DATE OF ADMISSION: 03/11/2019 14:31 (FOUNDER) PHONE: AGE: 63 N# [id number] GENDER: Female ENCOUNTER PHYSICIAN: Dr. Sawyer Rios M.D. 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 - Stroke 01 - Other Stroke (01.9) Intracranial Hemorrhage. Right [place] Infarct. EATING: Not assessed/no information CODE: - ORAL HYGIENE: Not assessed/no information CODE: - TOILETING HYGIENE: Not assessed/no information CODE: - BATHING: SHOWER/BATHE SELF - STEP 1: Does the patient complete the activity by him/herself with no assistance (physical, verbal/nonverbal cueing, setup/clean-up)? No. SHOWER/BATHE SELF - STEP 2: Does the patient need only setup/clean-up assistance from one helper? No. SHOWER/BATHE SELF - STEP 3: Does the patient need only verbal/nonverbal cueing or touching/steadying/contact guard assistance fro m one helper? No. SHOWER/BATHE SELF - STEP 4: Does the patient need physical assistance - for example lifting or trunk support from one helper - wi th the helper providing less than half of the effort? Yes. 1. [id number] ADMISSION PERFORMANCE: Partial/moderate assistance CODE: 03 DRESSING - UPPER BODY: DRESSING - UPPER BODY - STEP 1: Does the patient complete the activity by him/herself with no assistance (physical, verbal/nonverbal cueing, setup/clean-up)? No. DRESSING - UPPER BODY - STEP 2: Does the patient need only setup/clean-up assistance from one helper? No. DRESSING - UPPER BODY - STEP 3: Does the patient need only verbal/nonverbal cueing or touching/steadying/contact guard assistance fro m one helper? Yes. 1. [id number] ADMISSION PERFORMANCE: Supervision or touching assistance CODE: 04 DRESSING - LOWER BODY: DRESSING - LOWER BODY - STEP 1: Does the patient complete the activity by him/herself with no assistance (physical, verbal/nonverbal cueing, setup/clean-up)? No. DRESSING - LOWER BODY - STEP 2: Does the patient need only setup/clean-up assistance from one helper? No. DRESSING - LOWER BODY - STEP 3: Does the patient need only verbal/nonverbal cueing or touching/steadying/contact guard assistance fro m one helper? No. DRESSING - LOWER BODY - STEP 4: Does the patient need physical assistance - for example lifting or trunk support from one helper - wi th the helper providing less than half of the effort? Yes. 1. [id number] ADMISSION PERFORMANCE: Partial/moderate assistance CODE: 03 PUTTING ON/TAKING OFF FOOTWEAR: FOOTWEAR - STEP 1: Does the patient complete the activity by him/herself with no assistance (physical, verbal/nonverbal cueing, setup/clean-up)? No. FOOTWEAR - STEP 2: Does the patient need only setup/clean-up assistance from one helper? No. FOOTWEAR - STEP 3: Does the patient need only verbal/nonverbal cueing or touching/steadying/contact guard assistance fro m one helper? Yes. 1. [id number] ADMISSION PERFORMANCE: Supervision or touching assistance CODE: 04 DOES THE PATIENT USE A WHEELCHAIR/SCOOTER? CODE: EXPR INDICATE THE TYPE OF WHEELCHAIR/SCOOTER USED: CODE: EXPR INDICATE THE TYPE OF WHEELCHAIR/SCOOTER USED: CODE: EXPR BLADDER AND BOWEL: CODE: EXPR CODE: EXPR SIGNATURE PANEL: The following modified sections: 1. [id number] Admission Performance, 1. [id number] Admission Performance, 1. [id number] Admission Performance, 1. [id number] Admission Performance were [electronically] signed by Dolores Ott OT on WedMar 22 2019 17:28:11 GMT-0600 (Central Standard Time)
[2019-03-22] MEDS: MELATONIN 3 MG TABLET PO SCH (20:17)
[2019-03-22] MEDS: DOCUSATE NA/SENNA CONC 1 TAB PO PRN (20:17)
[2019-03-22] MEDS: MAGNESIUM OXIDE 400 MG TAB PO SCH (20:17)
[2019-03-22] MEDS: ALPRAZOLAM 0.5 MG TABLET PO SCH (21:56)
[2019-03-23 06:05] LABS: Absolute Lymphocytes (CBC) 2.2 K/uL (0.7-4.9); Basophils % 0.3 % (0-1.3); Hematocrit 36.5 % (36.0-45.0); Lymphocytes % 32.3 % (15.3-44.8); MPV 9.3 fL (7.6-11.3); RBC Red Blood Cell Count 3.91 M/uL (3.86-4.86)
[2019-03-23 06:30] LABS: Albumin 2.9 g/dL (3.4-5.0); BUN Blood Urea Nitrogen 20 mg/dL (7-18); Bicarbonate 27 mmol/L (21-32); Glucose Level 99 mg/dL (74-106); Magnesium 2.5 mg/dL (1.8-2.4); Potassium 4.1 mmol/L (3.5-5.1); Prealbumin 19.5 mg/dL (20-40); Sodium Level 146 mmol/L (136-145)
[2019-03-23] MEDS: TRIAMCINOLONE 0.1% CREAM 15GM TOP SCH ×2 (08:00→20:34)
[2019-03-23] MEDS: CLOTRIMAZOLE 1% CREAM 15 GM TOP SCH ×2 (08:00→20:00)
[2019-03-23] MEDS: DULOXETINE 20 MG CAP PO SCH (08:28)
[2019-03-23] MEDS: AMLODIPINE 10 MG TAB PO SCH (08:28)
[2019-03-23] MEDS: ENOXAPARIN 40 MG/0.4 ML SQ SCH (16:10)
--- NOTE | 2019-03-23 18:08 | R.PN ---
ENCOUNTER DATE AND TIME: 03/23/2019 18:03 (MANAGER SUPPORT SERVICES) NAME GLENN WALKER DATE OF : 1955 DATE OF ADMISSION: 03/11/2019 14:31 (MANAGER SUPPORT SERVICES) Brain MassIntracranial HemorrhageRight [place] InfarctCHIEF COMPLAINT: Left sided weakness and debility SUBJECTIVE: Pt denied any depression. Pt denied any Shortness of Breath. She denies headache or nausea. She is making better progress with physical and occupational therapy. Her ADLs were performed with minimum assistance. Ambulated 300' with contact guard to minimum assistance using a rolling walker. On Cipro for UTI. Hgb 12.3, WBC 6.9, prealbumin 19.5. She has a mildly pruritic flat non-daisha petechial rash on the right medial leg measuring about 5" b y 3". The rash has the appearance of contact dermatitis. Treated with topical steroids. VITAL SIGNS Temperature: 97.2 F SBP/DBP: 126/72 Pulse: 80 Resp: 16 MEDICATION ALLERGIES: No Known Drug Allergies (NKDA) ENVIRONMENTAL ALLERGIES: None Known - Substance Allergies None Known - Other Allergies None Known NURSING: - Shower allowing shower - Bladder care per protocol - Skin care per protocol PRECAUTIONS: - Fall Precaution Bed alarm TABS alarm Wheel chair alarm ACTIVITIES OOB only with supervision THERAPIES: - Occupational Therapy Cognitive Retraining. Visual Perceptual Training. - Dietary and Nutrition Adequate Nutrition. Nutritional Education. Nutritional Supplements. - Speech Therapy Cognitive Training. Expressive Language Skills. Memory Strategies. Receptive Language Skills. Speech Intelligibility Training. PHYSICAL EXAM - Gen Alert and awake Lying in bed No apparent distress Oriented to: person, time, and place - Skin No breakdown Normacephalic Scalp surgical site intact - Eyes No abnormalities - ENMT No abnormalities - Neck No abnormalities - CVS RRR - Chest No abnormalities - Resp Clear to auscultation - Abd + bowel sounds - GI Soft Deferred - No abnormalities - Ext no edema - MSK 3-4+/5 weakness in both lower extremities. - Neuro Diffuse weakness, incoordination and unsteady gait - Psych Moderate depression. ASSESSMENT: Pt. 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 was independent/mod-I in Locomotion, Safety Awarenes s, Balance, Social Cognition, Transfers Control, Sphincter Control, Self-Care, Communication, and End urance; and she had good Locomotion, Safety Awareness, Balance, Social Cognition, Transfers Control, Sphincter Control, Self-Care, Communication, and Endurance.Currently, she has deficits of Locomotion, Balance, Safety Awareness, Transfers Control, Self-Care, Endurance, and Communication.Pt. is now ref erred to [facility] for acute in-patient rehabilitation in order to maximize p atient's functional independence in activities of daily living, strength, ROM, and mobility.- Rehab G oal Patient has realistic goal of being discharged at assistance level 6-Danielle to reside at Home with Fam adriana/Relatives. MDM/PLAN: - Physical Therapy Gait dysfunction - to improve, our physical therapists will perform initial evaluation of pt's statu s upon admission and devise an individualized program for Gait Training, and Wheel Chair mobility Inability to transfer - to improve, our physical therapists will perform initial evaluation of pt's status upon admission and devise an individualized program for Bed mobility Need for home safety evaluation - to improve, our physical therapists will perform initial evaluatio n of pt's status upon admission and devise an individualized program for Home Evaluation Need in caregiver upon discharge - to improve, our physical therapists will perform initial evaluati on of pt's status upon admission and devise an individualized program for Caregiver Training New precaution - to improve, our physical therapists will perform initial evaluation of pt's status upon admission and devise an individualized program for Patient precaution education Poor balance - to improve, our physical therapists will perform initial evaluation of pt's status up on admission and devise an individualized program for Balance Training Poor endurance - to improve, our physical therapists will perform initial evaluation of pt's status upon admission and devise an individualized program for Endurance Training Weakness - to improve, our physical therapists will perform initial evaluation of pt's status upon a dmission and devise an individualized program for Aquatic Therapy, Neuromuscular Reeducation, and Str engthening Achieving independence - to improve, our physical therapists will perform initial evaluation of pt's status upon admission and devise an individualized program for Community Reintegration Activities - Occupational Therapy ADL deficits - to improve, our occupation therapists will perform initial evaluation of pt's status upon admission and devise an individualized program for Bathing, Bed mobility, Community Reintegratio n, Cooking, Dressing, Eating, Fine Motor Skills, Grooming, Homemaking, Kitchen Mobility, Laundry, Pat ient Education, Safety Awareness, Splinting - Positioning, Transfers(Toilet, Tub, Shower), and Wheel Chair Management Need for care program resident - to improve, our occupation therapists will perform initial evaluation of pt's status upon admission and devise an individualized program for Caregiver Training Weakness - to improve, our occupation therapists will perform initial evaluation of pt's status upon admission and devise an individualized program for Aquatic Therapy, Balance, Endurance, UE ROM, and UE strengthening - Other See attached MAR (Medication Administration Record) Oma Glenn.pdf See attached MAR (Medication Administration Record) - Diet Type Continue Regular - Diet - Liquid Texture Continue Regular - Tube Feed Continue N/A - Bladder care per protocol - Fall Precaution Bed alarm TABS alarm Wheel chair alarm - Skin care per protocol - Diet - Solid Texture Continue Regular - Shower allowing shower for Dementia, TBI, Stroke, or others FUNCTIONAL STATUS: UPDATED AT WEEKLY TEAM CONFERENCE - Bladder Same accident frequency: 7-Ind - No accidents in the past 7 days - Bowel Same accident frequency: 7-Ind - No accidents in the past 7 days - Walking Same score based on distance walked: 0(N/A) - Wheelchair Same score based on distance traveled: 0(N/A) Same score based on distance traveled: 3(>=150ft) FUNCTIONAL STATUS: - Self-Care A. Eating Danielle B. Grooming Paresh C. Bathing modA D. Dressing - Upper modA E. Dressing - Lower Paresh F. Toileting modA - Sphincter Control G. Bladder control modA H. Bowel control Paresh - Transfers Control I. Bed/Chair/Wheelchair maxA J. Toilet maxA K. Tub/Shower maxA - Locomotion L. Walk/Wheelchair (B) maxA M. Stairs ADNO - Communication N. Comprehension (B) Paresh O. Expression (B) Paresh - Social Cognition P. Social Interaction sup Q. Problem Solving sup R. Memory sup - Endurance Good - Balance Good - Safety Awareness Good QI SCORES: - Self-Care A. Eating 05-Setup or clean-up assistance B. Oral hygiene 05-Setup or clean-up assistance C. Toileting hygiene 03-Partial/moderate assistance E. Shower/bathe self 02-Substantial/maximal assistance F. Upper body dressing 03-Partial/moderate assistance G. Lower body dressing 02-Substantial/maximal assistance H. Putting on/taking off footwear 01-Dependent - Mobility A. Roll left and right 03-Partial/moderate assistance B. Sit to lying 02-Substantial/maximal assistance C. Lying to sitting on side of bed 02-Substantial/maximal assistance D. Sit to stand 02-Substantial/maximal assistance E. Chair/[id number] transfer 02-Substantial/maximal assistance F. Toilet transfer 02-Substantial/maximal assistance G. Car transfer 88-Not attempted due to medical condition or safety concerns I. Walk 10 feet 88-Not attempted due to medical condition or safety concerns J. Walk 50 feet with two turns 88-Not attempted due to medical condition or safety concerns K. Walk 150 feet 88-Not attempted due to medical condition or safety concerns L. Walking 10 feet on uneven surfaces 88-Not attempted due to medical condition or safety concerns M. 1 step (curb) 88-Not attempted due to medical condition or safety concerns N. 4 steps 88-Not attempted due to medical condition or safety concerns O. 12 steps 88-Not attempted due to medical condition or safety concerns P. Picking up object 88-Not attempted due to medical condition or safety concerns R. Wheel 50 feet with two turns 02-Substantial/maximal assistance S. Wheel 150 feet 02-Substantial/maximal assistance - Bladder and Bowel Bladder continence 0-Always continent Bowel continence 0-Always continent - Endurance Poor - Balance Poor - Safety Awareness Fair CURRENT FUNC. DEFICITS: Self-Care, Mobility, Endurance, Balance, and Safety Awareness SIGNATURE PANEL: (MANAGER SUPPORT SERVICES)
[2019-03-23] MEDS: MELATONIN 3 MG TABLET PO SCH (20:34)
[2019-03-23] MEDS: MAGNESIUM OXIDE 400 MG TAB PO SCH (20:34)
[2019-03-23] MEDS: DOCUSATE NA/SENNA CONC 1 TAB PO PRN (20:34)
[2019-03-23] MEDS: ALPRAZOLAM 0.5 MG TABLET PO SCH (21:58)
--- NOTE | 2019-03-24 00:48 | PN ---
Date of Progress Note: 03/23/2019 Subjective: Patient was seen this morning for followup. She slept very well last night. Denied any complaints this morning. Objective: Vital Signs: Reviewed. HEENT: Unremarkable. Lungs: Clear to auscultation. Heart: Heart sounds normal. Abdomen: Soft. Bowel sounds normal. No guarding, rigidity, tenderness, or distention. Extremities: No leg edema. Impression: 1.Insomnia. 2.Hypertension. 3.Stroke with left-sided hemiparesis. Plan: Continue current medication. Today's blood work results reviewed. Patient will continue to r eceive her insomnia medication, antihypertensive medication, and DVT prophylaxis. Continue physical therapy under guidance of Dr. Rios. I will see her tomorrow for followup. JULIO/MODL Voice ID: [id number] Report ID: [id number]
[2019-03-24] MEDS: AMLODIPINE 10 MG TAB PO SCH (08:19)
[2019-03-24] MEDS: DULOXETINE 20 MG CAP PO SCH (08:19)
[2019-03-24] MEDS: TRIAMCINOLONE 0.1% CREAM 15GM TOP SCH ×2 (09:14→20:14)
[2019-03-24] MEDS: CLOTRIMAZOLE 1% CREAM 15 GM TOP SCH ×2 (09:14→20:00)
--- NOTE | 2019-03-24 10:10 | P.RH.PN ---
Estimated Length of Stay: 21 Expected Discharge Date: 03/30/19 Discharge Disposition Plan: Home Family Support: Yes Penitentiary Goal: Mobility, Transfers, Self Care Vital Signs: Last Vital Signs Temp 97.8 F 03/24/19 08:00 Pulse 111 H 03/24/19 09:00 Resp 16 03/24/19 08:00 BP 166/76 H 03/24/19 09:00 Pulse Ox 99 03/24/19 08:00 Laboratory: Laboratory Last Values WBC 6.9 K/uL (4.3-10.9) D 03/23/19 05:49 RBC 3.91 M/uL (3.86-4.86) 03/23/19 05:49 Hgb 12.3 g/dL (12.0-15.0) 03/23/19 05:49 Hct 36.5 % (36.0-45.0) 03/23/19 05:49 MCV 93.3 fL (80-100) 03/23/19 05:49 MCH 31.4 pg (27.0-35.0) 03/23/19 05:49 MCHC 33.6 g/dL (32.0-36.0) 03/23/19 05:49 RDW 14.2 % (12.1-15.2) 03/23/19 05:49 Plt Count 193 K/uL (152-406) 03/23/19 05:49 MPV 9.3 fL (7.6-11.3) 03/23/19 05:49 Neutrophils % 56.5 % (41.7-73.7) 03/23/19 05:49 Lymphocytes % 32.3 % (15.3-44.8) 03/23/19 05:49 Monocytes % 9.0 % (3.3-12.3) 03/23/19 05:49 Eosinophils % 1.9 % (0-4.4) 03/23/19 05:49 Basophils % 0.3 % (0-1.3) 03/23/19 05:49 Absolute Neutrophils 3.9 K/uL (1.8-8.0) 03/23/19 05:49 Segmented Neutrophils 73 % (40-80) 03/11/19 05:52 Absolute Lymphocytes 2.2 K/uL (0.7-4.9) 03/23/19 05:49 Lymphocytes 15 % (15-42) 03/11/19 05:52 Monocytes 11 % (0-10) H 03/11/19 05:52 Absolute Monocytes 0.6 K/uL (0.1-1.3) 03/23/19 05:49 Eosinophils 1 % (0-3) 03/11/19 05:52 Absolute Eosinophils 0.1 K/uL (0-0.5) 03/23/19 05:49 Absolute Basophils 0.0 K/uL (0-0.5) 03/23/19 05:49 Morphology Comment Not seen (NOT SEEN) 03/11/19 05:52 Sodium 146 mmol/L (136-145) H 03/23/19 05:49 Potassium 4.1 mmol/L (3.5-5.1) 03/23/19 05:49 Chloride 114 mmol/L (98-107) H 03/23/19 05:49 Carbon Dioxide 27 mmol/L (21-32) 03/23/19 05:49 BUN 20 mg/dL (7-18) H 03/23/19 05:49 Creatinine 0.42 mg/dL (0.55-1.3) L 03/23/19 05:49 Estimated GFR > 90 mL/min (=/>90) 03/23/19 05:49 Glucose 99 mg/dL (74-106) 03/23/19 05:49 Calcium 8.4 mg/dL (8.5-10.1) L 03/23/19 05:49 Magnesium 2.5 mg/dL (1.8-2.4) H 03/23/19 05:49 Albumin 2.9 g/dL (3.4-5.0) L 03/23/19 05:49 Prealbumin 19.5 mg/dL (20-40) L 03/23/19 05:49 Urine Color Yellow 03/11/19 00:40 Urine Appearance Clear 03/11/19 00:40 Urine pH 5.0 (5.0-7.0) 03/11/19 00:40 Ur Specific [place] 1.020 (1.005-1.030) 03/11/19 00:40 Urine Ketones Negative (NEG) 03/11/19 00:40 Urine Blood Negative (NEG) 03/11/19 00:40 Urine Nitrite Negative (NEG) 03/11/19 00:40 Urine Bilirubin Negative (NEG) 03/11/19 00:40 Urine Urobilinogen 0.2 mg/dL (0.2-1.0) 03/11/19 00:40 Ur Leukocyte Esterase 1+ (NEG) H 03/11/19 00:40 Urine RBC <5 /HPF (NONE SEEN) 03/11/19 00:40 Urine WBC 10-20 /HPF (<5) H 03/11/19 00:40 Ur Squamous Epith Cells 5-10 /HPF (NONE SEEN) H 03/11/19 00:40 Calcium Oxalate Crystal Few (NONE SEEN) 03/11/19 00:40 Urine Bacteria 20-50 /HPF (<20) H 03/11/19 00:40 Urine Mucus 3+ /HPF (NONE SEEN) H 03/11/19 00:40 Urine Culture Reflexed Not needed 03/11/19 00:40 Urine Glucose Negative (NEG) 03/11/19 00:40 Urine Total Protein Negative (NEG) 03/11/19 00:40 Weight: 119 lb 9.6 oz Wound Present: No Closed Surgical Incision Present: No Negative Pressure Wound Therapy Present: No Physician Update: Labs reviewed and are stable. She reports more dizziness today , similar to eariler when her head CT showed increased cerebral edema. Will give decadron 4 mg q 8 hours for 3 days. She is walking 150' contact guard, transfering with contact guard to minimum assistance. Medical Issues: Patient is incontinent daily with bladder and always continent with bowel. Functional Improvement: pt has continued to demonstrate progress. pt is able to ambulate with CG and perform transfers with MIN assist. Further family training is necessary for functional mobility and guarding during transfers and ambulation. pt Will continue to benefit and progress with further therapy services to enhance transfers, ambulation, and other functional mobility. Speech Therapy Update: Patient presents with min (trace) cognitive-linguistic impairments characterized by decreased auditory comprehension fo complex information, decreased mental flexibility, and decreased ability to solve complex problems. Patient has demonstrated significant progress on her speech and language goals. She would benefit from continued speech therapy to help her reach her PLOF. Summary: Patient's care plan and roasterman goals have been reviewed and revised as necessary. Please see the Rehabilitation Signature page for all necessary signatures.
--- NOTE | 2019-03-24 10:58 | RAD REPORT ---
EXAM DESCRIPTION: CT - Head Brain Wo Cont - 03/24/2019 10:45 am CLINICAL HISTORY: Weakness, dizziness, hypertension, CVA history COMPARISON: March 05, 2019 TECHNIQUE: Axial 5 mm thick images of the head were obtained without IV contrast. All CT scans are performed using dose optimization technique as appropriate and may include automated exposure control or mA/KV adjustment according to patient size. FINDINGS: No intracranial hemorrhage is present. Right frontal lobe gliosis changes are present. Cosme ma has reduced since the March 05 imaging. Midline shift is no longer present. No new cortical cosme ma or sulcal effacement. Underlying atrophy changes are mild and stable over the short interval. Vent ricles remain in proportion to volume loss. Chronic ischemic pattern in the cerebral white matter and basal ganglia stable. Bilateral external capsule and bilateral thalamus old infarction changes noted . No new extra-axial fluid collection. Mastoid air cells and visualized portions of the paranasal sinuses are clear. No acute bony findings. Postsurgical changes are noted to the right frontal bone stable from comparis on. Carotid arterial calcifications are present. IMPRESSION: Right frontal lobe gliosis is again noted with edema reduced since March 05. The mini mal midline shift on the prior examination has resolved. Mild atrophy changes are stable. The patient has chronic ischemic pattern and old lacunar type infarc tion changes are not clearly different.
--- NOTE | 2019-03-24 15:35 | FAST ---
ENCOUNTER DATE AND TIME: 03/24/2019 08:00 (LIFE CONSULTANT) NAME GLENN WALKER DATE OF : 1955 DATE OF ADMISSION: 03/11/2019 14:31 (LIFE CONSULTANT) PHONE: AGE: 63 N# [id number] GENDER: Female ENCOUNTER PHYSICIAN: Dr. Sawyer Rios M.D. 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 - Stroke 01 - Other Stroke (01.9) Intracranial Hemorrhage. Right [place] Infarct. EATING: Not assessed/no information CODE: - ORAL HYGIENE: Not assessed/no information CODE: - TOILETING HYGIENE: Not assessed/no information CODE: - BATHING: SHOWER/BATHE SELF - STEP 1: Does the patient complete the activity by him/herself with no assistance (physical, verbal/nonverbal cueing, setup/clean-up)? No. SHOWER/BATHE SELF - STEP 2: Does the patient need only setup/clean-up assistance from one helper? No. SHOWER/BATHE SELF - STEP 3: Does the patient need only verbal/nonverbal cueing or touching/steadying/contact guard assistance fro m one helper? No. SHOWER/BATHE SELF - STEP 4: Does the patient need physical assistance - for example lifting or trunk support from one helper - wi th the helper providing less than half of the effort? Yes. 1. [id number] ADMISSION PERFORMANCE: Partial/moderate assistance CODE: 03 DRESSING - UPPER BODY: DRESSING - UPPER BODY - STEP 1: Does the patient complete the activity by him/herself with no assistance (physical, verbal/nonverbal cueing, setup/clean-up)? No. DRESSING - UPPER BODY - STEP 2: Does the patient need only setup/clean-up assistance from one helper? No. DRESSING - UPPER BODY - STEP 3: Does the patient need only verbal/nonverbal cueing or touching/steadying/contact guard assistance fro m one helper? Yes. 1. [id number] ADMISSION PERFORMANCE: Supervision or touching assistance CODE: 04 DRESSING - LOWER BODY: DRESSING - LOWER BODY - STEP 1: Does the patient complete the activity by him/herself with no assistance (physical, verbal/nonverbal cueing, setup/clean-up)? No. DRESSING - LOWER BODY - STEP 2: Does the patient need only setup/clean-up assistance from one helper? No. DRESSING - LOWER BODY - STEP 3: Does the patient need only verbal/nonverbal cueing or touching/steadying/contact guard assistance fro m one helper? No. DRESSING - LOWER BODY - STEP 4: Does the patient need physical assistance - for example lifting or trunk support from one helper - wi th the helper providing less than half of the effort? Yes. 1. [id number] ADMISSION PERFORMANCE: Partial/moderate assistance CODE: 03 PUTTING ON/TAKING OFF FOOTWEAR: FOOTWEAR - STEP 1: Does the patient complete the activity by him/herself with no assistance (physical, verbal/nonverbal cueing, setup/clean-up)? No. FOOTWEAR - STEP 2: Does the patient need only setup/clean-up assistance from one helper? No. FOOTWEAR - STEP 3: Does the patient need only verbal/nonverbal cueing or touching/steadying/contact guard assistance fro m one helper? Yes. 1. [id number] ADMISSION PERFORMANCE: Supervision or touching assistance CODE: 04 DOES THE PATIENT USE A WHEELCHAIR/SCOOTER? CODE: EXPR INDICATE THE TYPE OF WHEELCHAIR/SCOOTER USED: CODE: EXPR INDICATE THE TYPE OF WHEELCHAIR/SCOOTER USED: CODE: EXPR BLADDER AND BOWEL: CODE: EXPR CODE: EXPR SIGNATURE PANEL: The following modified sections: 1. [id number] Admission Performance, 1. [id number] Admission Performance, 1. [id number] Admission Performance, 1. [id number] Admission Performance were [electronically] signed by Dolores Ott OT on WedMar 24 2019 15:34:36 GMT-0600 (Central Standard Time)
[2019-03-24] MEDS: ENOXAPARIN 40 MG/0.4 ML SQ SCH (17:05)
[2019-03-24] MEDS: MAGNESIUM OXIDE 400 MG TAB PO SCH (20:13)
[2019-03-24] MEDS: MELATONIN 3 MG TABLET PO SCH (20:13)
--- NOTE | 2019-03-24 21:52 | PN ---
Date of Progress Note: 03/24/2019 Subjective: Patient was seen this morning for followup. No new complaints or problems. She sleeps well at night time with medication. Denies any complaints this morning. No constipation, nausea, vomiting. Objective: Vital Signs: Reviewed. HEENT: Unremarkable. Lungs: Clear to auscultation. Heart: Heart sounds normal. Abdomen: Soft. Bowel sounds normal. No guarding, rigidity, tenderness, distention. Extremities: No leg edema. Impression: 1. Primary insomnia. 2. Hypertension. 3. Stroke with left-sided hemiparesis. Plan: We will continue current medications. Continue current amlodipine, Lovenox for DVT prophylaxis and alprazolam for insomnia. Continue physical therapy under guidance of Dr. Rios. JULIO/LENCHO Voice ID: [id number] Report ID: [id number] MTDD
[2019-03-24] MEDS: DOCUSATE NA/SENNA CONC 1 TAB PO PRN (22:15)
[2019-03-24] MEDS: ALPRAZOLAM 0.5 MG TABLET PO SCH (22:15)
--- NOTE | 2019-03-25 02:37 | FAST ---
SHIFT START DATE/TIME: 03/24/2019 19:00 (TENANT RELATIONS COORDINATOR) SHIFT END DATE/TIME: 03/25/2019 07:00 (TENANT RELATIONS COORDINATOR) NAME GLENN WALKER DATE OF : 1955 DATE OF ADMISSION: 03/11/2019 14:31 (TENANT RELATIONS COORDINATOR) PHONE: AGE: 63 N# [id number] GENDER: Female ENCOUNTER PHYSICIAN: Dr. Sawyer Rios M.D. 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 - Stroke 01 - Other Stroke (01.9) Intracranial Hemorrhage. Right [place] Infarct. EATING: Not assessed/no information CODE: - ORAL HYGIENE: Not assessed/no information CODE: - TOILETING HYGIENE: TOILETING HYGIENE - STEP 1: Does the patient complete the activity by him/herself with no assistance (physical, verbal/nonverbal cueing, setup/clean-up)? No. TOILETING HYGIENE - STEP 2: Does the patient need only setup/clean-up assistance from one helper? No. TOILETING HYGIENE - STEP 3: Does the patient need only verbal/nonverbal cueing or touching/steadying/contact guard assistance fro m one helper? No. TOILETING HYGIENE - STEP 4: Does the patient need physical assistance - for example lifting or trunk support from one helper - wi th the helper providing less than half of the effort? Yes. 1. [id number] ADMISSION PERFORMANCE: Partial/moderate assistance CODE: 03 BATHING: Not assessed/no information CODE: - DRESSING - UPPER BODY: Not assessed/no information CODE: - DRESSING - LOWER BODY: Not assessed/no information CODE: - PUTTING ON/TAKING OFF FOOTWEAR: Not assessed/no information CODE: - ROLL LEFT AND RIGHT: ROLL LEFT AND RIGHT - STEP 1: Does the patient complete the activity by him/herself with no assistance (physical, verbal/nonverbal cueing, setup/clean-up)? No. ROLL LEFT AND RIGHT - STEP 2: Does the patient need only setup/clean-up assistance from one helper? No. ROLL LEFT AND RIGHT - STEP 3: Does the patient need only verbal/nonverbal cueing or touching/steadying/contact guard assistance fro m one helper? No. ROLL LEFT AND RIGHT - STEP 4: Does the patient need physical assistance - for example lifting or trunk support from one helper - wi th the helper providing less than half of the effort? Yes. 1. [id number] ADMISSION PERFORMANCE: Partial/moderate assistance CODE: 03 SIT TO LYING: SIT TO LYING - STEP 1: Does the patient complete the activity by him/herself with no assistance (physical, verbal/nonverbal cueing, setup/clean-up)? No. SIT TO LYING - STEP 2: Does the patient need only setup/clean-up assistance from one helper? No. SIT TO LYING - STEP 3: Does the patient need only verbal/nonverbal cueing or touching/steadying/contact guard assistance fro m one helper? No. SIT TO LYING - STEP 4: Does the patient need physical assistance - for example lifting or trunk support from one helper - wi th the helper providing less than half of the effort? No. SIT TO LYING - STEP 5: Does the patient need physical assistance - for example lifting or trunk support from one helper - wi th the helper providing more than half of the effort? Yes. 1. [id number] ADMISSION PERFORMANCE: Substantial/maximal assistance CODE: 02 LYING TO SITTING: LYING TO SITTING ON SIDE OF BED - STEP 1: Does the patient complete the activity by him/herself with no assistance (physical, verbal/nonverbal cueing, setup/clean-up)? No. LYING TO SITTING ON SIDE OF BED - STEP 2: Does the patient need only setup/clean-up assistance from one helper? No. LYING TO SITTING ON SIDE OF BED - STEP 3: Does the patient need only verbal/nonverbal cueing or touching/steadying/contact guard assistance fro m one helper? No. LYING TO SITTING ON SIDE OF BED - STEP 4: Does the patient need physical assistance - for example lifting or trunk support from one helper - wi th the helper providing less than half of the effort? No. LYING TO SITTING ON SIDE OF BED - STEP 5: Does the patient need physical assistance - for example lifting or trunk support from one helper - wi th the helper providing more than half of the effort? Yes. 1. [id number] ADMISSION PERFORMANCE: Substantial/maximal assistance CODE: 02 SIT TO STAND: SIT TO STAND - STEP 1: Does the patient complete the activity by him/herself with no assistance (physical, verbal/nonverbal cueing, setup/clean-up)? No. SIT TO STAND - STEP 2: Does the patient need only setup/clean-up assistance from one helper? No. SIT TO STAND - STEP 3: Does the patient need only verbal/nonverbal cueing or touching/steadying/contact guard assistance fro m one helper? No. SIT TO STAND - STEP 4: Does the patient need physical assistance - for example lifting or trunk support from one helper - wi th the helper providing less than half of the effort? Yes. 1. [id number] ADMISSION PERFORMANCE: Partial/moderate assistance CODE: 03 TRANSFERS: BED, CHAIR: CHAIR/[id number] TRANSFER - STEP 1: Does the patient complete the activity by him/herself with no assistance (physical, verbal/nonverbal cueing, setup/clean-up)? No. CHAIR/[id number] TRANSFER - STEP 2: Does the patient need only setup/clean-up assistance from one helper? No. CHAIR/[id number] TRANSFER - STEP 3: Does the patient need only verbal/nonverbal cueing or touching/steadying/contact guard assistance fro m one helper? No. CHAIR/[id number] TRANSFER - STEP 4: Does the patient need physical assistance - for example lifting or trunk support from one helper - wi th the helper providing less than half of the effort? Yes. 1. [id number] ADMISSION PERFORMANCE: Partial/moderate assistance CODE: 03 TRANSFER TOILET: TOILET TRANSFER - STEP 1: Does the patient complete the activity by him/herself with no assistance (physical, verbal/nonverbal cueing, setup/clean-up)? No. TOILET TRANSFER - STEP 2: Does the patient need only setup/clean-up assistance from one helper? No. TOILET TRANSFER - STEP 3: Does the patient need only verbal/nonverbal cueing or touching/steadying/contact guard assistance fro m one helper? No. TOILET TRANSFER - STEP 4: Does the patient need physical assistance - for example lifting or trunk support from one helper - wi th the helper providing less than half of the effort? Yes. 1. [id number] ADMISSION PERFORMANCE: Partial/moderate assistance CODE: 03 TRANSFERS: CAR: Not assessed/no information CODE: - WALK 10 FEET: Not assessed/no information CODE: - 1 STEP (CURB): Not assessed/no information CODE: - PICKING UP OBJECT: Not assessed/no information CODE: - DOES THE PATIENT USE A WHEELCHAIR/SCOOTER? CODE: EXPR WHEEL 50 FEET WITH TWO TURNS: Not assessed/no information CODE: - INDICATE THE TYPE OF WHEELCHAIR/SCOOTER USED: CODE: EXPR WHEEL 150 FEET: Not assessed/no information CODE: - INDICATE THE TYPE OF WHEELCHAIR/SCOOTER USED: CODE: EXPR BLADDER AND BOWEL: H350. BLADDER CONTINENCE (3-DAY ASSESSMENT PERIOD): Always continent (no documented incontinence) CODE: 0 H400. BOWEL CONTINENCE (3-DAY ASSESSMENT PERIOD): Always continent CODE: 0
[2019-03-25] MEDS: CLOTRIMAZOLE 1% CREAM 15 GM TOP SCH ×2 (08:00→19:08)
[2019-03-25] MEDS: TRIAMCINOLONE 0.1% CREAM 15GM TOP SCH ×2 (08:00→19:08)
[2019-03-25] MEDS: DULOXETINE 20 MG CAP PO SCH (08:40)
[2019-03-25] MEDS: AMLODIPINE 10 MG TAB PO SCH (08:40)
--- NOTE | 2019-03-25 14:08 | RAD REPORT ---
EXAM DESCRIPTION: US - Extrem Venous W Compress [place] - 03/25/2019 1:48 pm CLINICAL HISTORY: Bilateral leg pain and swelling COMPARISON: None. TECHNIQUE: Real-time sonographic evaluation of the bilateral lower extremity common femoral, superfi cial femoral, popliteal and posterior tibial veins was performed. FINDINGS: Normal compressibility, flow augmentation, phasic flow and spontaneous flow are identified in the left and right lower extremity common femoral, superficial femoral, popliteal and posterior t ibial veins. No intraluminal filling defects seen. IMPRESSION: No DVT in either lower extremity.
[2019-03-25] MEDS: ENOXAPARIN 40 MG/0.4 ML SQ SCH (16:52)
--- NOTE | 2019-03-25 17:44 | PN ---
Date of Progress Note: 03/25/2019 Subjective: Patient was seen this morning for followup. She was lying in bed not in any distress. Slept very well last night. Denied any new complaints except some leg swelling. Objective: Vital Signs: Reviewed. HEENT: Unremarkable. Lungs: Clear to auscultation. No rhonchi. No rales. Heart: Heart sounds normal. Abdomen: Soft. Bowel sounds normal. No guarding, rigidity, tenderness, or distention. Extremities: Trace to grade 1 edema in both lower extremity noted. Patient also has a brownish colo red rash more on right leg than left leg, unchanged from yesterday. Impression: 1.Bilateral leg edema. 2.Hypertension. 3.Stroke with left-sided hemiparesis. 4.Insomnia. Plan: Patient is on amlodipine, which could be underlying reason of her leg swelling, but we need to rule out DVT. Venous Doppler was ordered to be done today. Patient is on Lovenox for DVT prophylax is, which we will continue. Continue current treatment for insomnia and I will see her tomorrow for followup. JULIO/MODL Voice ID: [id number] Report ID: [id number]
[2019-03-25] MEDS: ALPRAZOLAM 0.5 MG TABLET PO SCH (19:07)
[2019-03-25] MEDS: MELATONIN 3 MG TABLET PO SCH (19:07)
[2019-03-25] MEDS: MAGNESIUM OXIDE 400 MG TAB PO SCH (19:07)
[2019-03-26] MEDS: TRIAMCINOLONE 0.1% CREAM 15GM TOP SCH ×2 (08:00→19:24)
[2019-03-26] MEDS: CLOTRIMAZOLE 1% CREAM 15 GM TOP SCH ×2 (08:00→19:22)
[2019-03-26] MEDS: AMLODIPINE 10 MG TAB PO SCH (08:11)
[2019-03-26] MEDS: DULOXETINE 20 MG CAP PO SCH (08:11)
--- NOTE | 2019-03-26 15:26 | PN ---
Date of Progress Note: 03/26/2019 Subjective: Patient was seen this morning for followup. No new complaints or problems reported by gianna alberto. She was sitting in wheelchair. Her leg swelling is better today than yesterday. Objective: Vital Signs: Reviewed. HEENT: Unremarkable. Lungs: Clear to auscultation. Heart: Sounds normal. Abdomen: Soft. Bowel sounds normal. No guarding, rigidity, tenderness, distention. Extremities: Rash from lower legs unchanged. Leg swelling is better today than yesterday. Imaging Studies: Venous doppler of both lower extremity was negative for DVT. Impression: 1.Leg edema. 2.Hypertension. 3.Stroke with left-sided hemiparesis. 4.Meningioma. 5.Primary insomnia. Plan: We will go ahead and discontinue amlodipine that she currently takes [address] of that start lisinopril 5 mg daily. Leg swelling and the rash could be due to side effect from amlo dipine, so we will see how she responds to this change in medication. Continue alprazolam and DVT pr ophylaxis with Lovenox. I will see her tomorrow for followup. JULIO/MODL Voice ID: [id number] Report ID: [id number]
[2019-03-26] MEDS: ENOXAPARIN 40 MG/0.4 ML SQ SCH (16:24)
[2019-03-26] MEDS: MELATONIN 3 MG TABLET PO SCH (19:22)
[2019-03-26] MEDS: MAGNESIUM OXIDE 400 MG TAB PO SCH (19:22)
[2019-03-26] MEDS: ALPRAZOLAM 0.5 MG TABLET PO SCH (19:23)
[2019-03-26] MEDS: DOCUSATE NA/SENNA CONC 1 TAB PO PRN (19:31)
[2019-03-27] MEDS: TRIAMCINOLONE 0.1% CREAM 15GM TOP SCH ×2 (08:00→19:26)
[2019-03-27] MEDS ORDERED: lisinopriL 5 MG TAB PO SCH (08:00)
[2019-03-27] MEDS: CLOTRIMAZOLE 1% CREAM 15 GM TOP SCH ×2 (08:15→19:26)
[2019-03-27] MEDS: DULOXETINE 20 MG CAP PO SCH (08:15)
[2019-03-27] MEDS: LOSARTAN POTASSIUM 50 MG TABLET PO SCH (08:18)
--- NOTE | 2019-03-27 14:52 | FAST ---
ENCOUNTER DATE AND TIME: 03/23/2019 08:00 (BUSINESS SUPPORT ADMINISTRATOR) NAME GLENN WALKER DATE OF : 1955 DATE OF ADMISSION: 03/11/2019 14:31 (BUSINESS SUPPORT ADMINISTRATOR) PHONE: AGE: 63 N# [id number] GENDER: Female ENCOUNTER PHYSICIAN: Dr. Sawyer Rios M.D. 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 - Stroke 01 - Other Stroke (01.9) Intracranial Hemorrhage. Right [place] Infarct. ROLL LEFT AND RIGHT: ROLL LEFT AND RIGHT - STEP 1: Does the patient complete the activity by him/herself with no assistance (physical, verbal/nonverbal cueing, setup/clean-up)? No. ROLL LEFT AND RIGHT - STEP 2: Does the patient need only setup/clean-up assistance from one helper? No. ROLL LEFT AND RIGHT - STEP 3: Does the patient need only verbal/nonverbal cueing or touching/steadying/contact guard assistance fro m one helper? Yes. 1. [id number] ADMISSION PERFORMANCE: Supervision or touching assistance CODE: 04 SIT TO LYING: SIT TO LYING - STEP 1: Does the patient complete the activity by him/herself with no assistance (physical, verbal/nonverbal cueing, setup/clean-up)? No. SIT TO LYING - STEP 2: Does the patient need only setup/clean-up assistance from one helper? No. SIT TO LYING - STEP 3: Does the patient need only verbal/nonverbal cueing or touching/steadying/contact guard assistance fro m one helper? Yes. 1. [id number] ADMISSION PERFORMANCE: Supervision or touching assistance CODE: 04 LYING TO SITTING: LYING TO SITTING ON SIDE OF BED - STEP 1: Does the patient complete the activity by him/herself with no assistance (physical, verbal/nonverbal cueing, setup/clean-up)? No. LYING TO SITTING ON SIDE OF BED - STEP 2: Does the patient need only setup/clean-up assistance from one helper? No. LYING TO SITTING ON SIDE OF BED - STEP 3: Does the patient need only verbal/nonverbal cueing or touching/steadying/contact guard assistance fro m one helper? Yes. 1. [id number] ADMISSION PERFORMANCE: Supervision or touching assistance CODE: 04 SIT TO STAND: SIT TO STAND - STEP 1: Does the patient complete the activity by him/herself with no assistance (physical, verbal/nonverbal cueing, setup/clean-up)? No. SIT TO STAND - STEP 2: Does the patient need only setup/clean-up assistance from one helper? No. SIT TO STAND - STEP 3: Does the patient need only verbal/nonverbal cueing or touching/steadying/contact guard assistance fro m one helper? Yes. 1. [id number] ADMISSION PERFORMANCE: Supervision or touching assistance CODE: 04 TRANSFERS: BED, CHAIR: CHAIR/[id number] TRANSFER - STEP 1: Does the patient complete the activity by him/herself with no assistance (physical, verbal/nonverbal cueing, setup/clean-up)? No. CHAIR/[id number] TRANSFER - STEP 2: Does the patient need only setup/clean-up assistance from one helper? No. CHAIR/[id number] TRANSFER - STEP 3: Does the patient need only verbal/nonverbal cueing or touching/steadying/contact guard assistance fro m one helper? Yes. 1. [id number] ADMISSION PERFORMANCE: Supervision or touching assistance CODE: 04 TRANSFER TOILET: TOILET TRANSFER - STEP 1: Does the patient complete the activity by him/herself with no assistance (physical, verbal/nonverbal cueing, setup/clean-up)? No. TOILET TRANSFER - STEP 2: Does the patient need only setup/clean-up assistance from one helper? No. TOILET TRANSFER - STEP 3: Does the patient need only verbal/nonverbal cueing or touching/steadying/contact guard assistance fro m one helper? Yes. 1. [id number] ADMISSION PERFORMANCE: Supervision or touching assistance CODE: 04 TRANSFERS: CAR: CAR TRANSFER - STEP 1: Does the patient complete the activity by him/herself with no assistance (physical, verbal/nonverbal cueing, setup/clean-up)? No. CAR TRANSFER - STEP 2: Does the patient need only setup/clean-up assistance from one helper? No. CAR TRANSFER - STEP 3: Does the patient need only verbal/nonverbal cueing or touching/steadying/contact guard assistance fro m one helper? Yes. 1. [id number] ADMISSION PERFORMANCE: Supervision or touching assistance CODE: 04 WALK 10 FEET: WALK 10 FEET - STEP 1: Does the patient complete the activity by him/herself with no assistance (physical, verbal/nonverbal cueing, setup/clean-up)? No. WALK 10 FEET - STEP 2: Does the patient need only setup/clean-up assistance from one helper? No. WALK 10 FEET - STEP 3: Does the patient need only verbal/nonverbal cueing or touching/steadying/contact guard assistance fro m one helper? Yes. 1. [id number] ADMISSION PERFORMANCE: Supervision or touching assistance CODE: WALK 50 FEET: WALK 50 FEET - STEP 1: Does the patient complete the activity by him/herself with no assistance (physical, verbal/nonverbal cueing, setup/clean-up)? No. WALK 50 FEET - STEP 2: Does the patient need only setup/clean-up assistance from one helper? No. WALK 50 FEET - STEP 3: Does the patient need only verbal/nonverbal cueing or touching/steadying/contact guard assistance fro m one helper? Yes. 1. [id number] ADMISSION PERFORMANCE: Supervision or touching assistance CODE: WALK 150 FEET: WALK 150 FEET - STEP 1: Does the patient complete the activity by him/herself with no assistance (physical, verbal/nonverbal cueing, setup/clean-up)? No. WALK 150 FEET - STEP 2: Does the patient need only setup/clean-up assistance from one helper? No. WALK 150 FEET - STEP 3: Does the patient need only verbal/nonverbal cueing or touching/steadying/contact guard assistance fro m one helper? Yes. 1. [id number] ADMISSION PERFORMANCE: Supervision or touching assistance CODE: WALK 10 FEET UNEVEN: Not attempted due to medical condition or safety concerns CODE: 88 1 STEP (CURB): Not attempted due to medical condition or safety concerns CODE: 88 PICKING UP OBJECT: Not attempted due to medical condition or safety concerns CODE: 88 DOES THE PATIENT USE A WHEELCHAIR/SCOOTER? Q1. DOES THE PATIENT USE A WHEELCHAIR/SCOOTER?: Yes CODE: 1 WHEEL 50 FEET WITH TWO TURNS: WHEEL 50 FEET WITH TWO TURNS - STEP 1: Does the patient complete the activity by him/herself with no assistance (physical, verbal/nonverbal cueing, setup/clean-up)? No. WHEEL 50 FEET WITH TWO TURNS - STEP 2: Does the patient need only setup/clean-up assistance from one helper? No. WHEEL 50 FEET WITH TWO TURNS - STEP 3: Does the patient need only verbal/nonverbal cueing or touching/steadying/contact guard assistance fro m one helper? Yes. 1. [id number] ADMISSION PERFORMANCE: Supervision or touching assistance CODE: 04 INDICATE THE TYPE OF WHEELCHAIR/SCOOTER USED: RR1. INDICATE THE TYPE OF WHEELCHAIR/SCOOTER USED.: Manual CODE: 1 WHEEL 150 FEET: WHEEL 150 FEET - STEP 1: Does the patient complete the activity by him/herself with no assistance (physical, verbal/nonverbal cueing, setup/clean-up)? No. WHEEL 150 FEET - STEP 2: Does the patient need only setup/clean-up assistance from one helper? No. WHEEL 150 FEET - STEP 3: Does the patient need only verbal/nonverbal cueing or touching/steadying/contact guard assistance fro m one helper? Yes. 1. [id number] ADMISSION PERFORMANCE: Supervision or touching assistance CODE: 04 INDICATE THE TYPE OF WHEELCHAIR/SCOOTER USED: SS1. INDICATE THE TYPE OF WHEELCHAIR/SCOOTER USED.: Manual CODE: 1 BLADDER AND BOWEL: CODE: EXPR CODE: EXPR SIGNATURE PANEL: The following modified sections: 1. [id number] Admission Performance, 1. [id number] Admission Performance, 1. [id number] Admission Performance, 1. [id number] Admission Performance, 1. [id number] Admission Performance, 1. [id number] Admission Performance, 1. [id number] Admission Performance, 1. [id number] Admission Performance , 1. [id number] Admission Performance, 1. [id number] Admission Performance, Q1. Does the patient use a whee lchair/scooter?, 1. [id number] Admission Performance, RR1. Indicate the type of wheelchair/scooter used. , 1. [id number] Admission Performance, Code, SS1. Indicate the type of wheelchair/scooter used. were [el ectronically] signed by Flo Johnston PTA on WedMar 27 2019 14:51:29 GMT-0600 (Central Standard Time)
--- NOTE | 2019-03-27 15:44 | FAST ---
SHIFT START DATE/TIME: 03/27/2019 07:00 (GATE MANAGER) SHIFT END DATE/TIME: 03/27/2019 19:00 (GATE MANAGER) NAME GLENN WALKER DATE OF : 1955 DATE OF ADMISSION: 03/11/2019 14:31 (GATE MANAGER) PHONE: AGE: 63 N# [id number] GENDER: Female ENCOUNTER PHYSICIAN: Dr. Sawyer Rios M.D. 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 - Stroke 01 - Other Stroke (01.9) Intracranial Hemorrhage. Right [place] Infarct. EATING: EATING - STEP 1: Does the patient complete the activity by him/herself with no assistance (physical, verbal/nonverbal cueing, setup/clean-up)? No. EATING - STEP 2: Does the patient need only setup/clean-up assistance from one helper? Yes. 1. [id number] ADMISSION PERFORMANCE: Setup or clean-up assistance CODE: 05 ORAL HYGIENE: ORAL HYGIENE - STEP 1: Does the patient complete the activity by him/herself with no assistance (physical, verbal/nonverbal cueing, setup/clean-up)? No. ORAL HYGIENE - STEP 2: Does the patient need only setup/clean-up assistance from one helper? Yes. 1. [id number] ADMISSION PERFORMANCE: Setup or clean-up assistance CODE: 05 TOILETING HYGIENE: TOILETING HYGIENE - STEP 1: Does the patient complete the activity by him/herself with no assistance (physical, verbal/nonverbal cueing, setup/clean-up)? No. TOILETING HYGIENE - STEP 2: Does the patient need only setup/clean-up assistance from one helper? No. TOILETING HYGIENE - STEP 3: Does the patient need only verbal/nonverbal cueing or touching/steadying/contact guard assistance fro m one helper? No. TOILETING HYGIENE - STEP 4: Does the patient need physical assistance - for example lifting or trunk support from one helper - wi th the helper providing less than half of the effort? No. TOILETING HYGIENE - STEP 5: Does the patient need physical assistance - for example lifting or trunk support from one helper - wi th the helper providing more than half of the effort? Yes. 1. [id number] ADMISSION PERFORMANCE: Substantial/maximal assistance CODE: 02 BATHING: Not assessed/no information CODE: - DRESSING - UPPER BODY: DRESSING - UPPER BODY - STEP 1: Does the patient complete the activity by him/herself with no assistance (physical, verbal/nonverbal cueing, setup/clean-up)? No. DRESSING - UPPER BODY - STEP 2: Does the patient need only setup/clean-up assistance from one helper? No. DRESSING - UPPER BODY - STEP 3: Does the patient need only verbal/nonverbal cueing or touching/steadying/contact guard assistance fro m one helper? No. DRESSING - UPPER BODY - STEP 4: Does the patient need physical assistance - for example lifting or trunk support from one helper - wi th the helper providing less than half of the effort? No. DRESSING - UPPER BODY - STEP 5: Does the patient need physical assistance - for example lifting or trunk support from one helper - wi th the helper providing more than half of the effort? Yes. 1. [id number] ADMISSION PERFORMANCE: Substantial/maximal assistance CODE: 02 DRESSING - LOWER BODY: DRESSING - LOWER BODY - STEP 1: Does the patient complete the activity by him/herself with no assistance (physical, verbal/nonverbal cueing, setup/clean-up)? No. DRESSING - LOWER BODY - STEP 2: Does the patient need only setup/clean-up assistance from one helper? No. DRESSING - LOWER BODY - STEP 3: Does the patient need only verbal/nonverbal cueing or touching/steadying/contact guard assistance fro m one helper? No. DRESSING - LOWER BODY - STEP 4: Does the patient need physical assistance - for example lifting or trunk support from one helper - wi th the helper providing less than half of the effort? No. DRESSING - LOWER BODY - STEP 5: Does the patient need physical assistance - for example lifting or trunk support from one helper - wi th the helper providing more than half of the effort? Yes. 1. [id number] ADMISSION PERFORMANCE: Substantial/maximal assistance CODE: 02 PUTTING ON/TAKING OFF FOOTWEAR: FOOTWEAR - STEP 1: Does the patient complete the activity by him/herself with no assistance (physical, verbal/nonverbal cueing, setup/clean-up)? No. FOOTWEAR - STEP 2: Does the patient need only setup/clean-up assistance from one helper? No. FOOTWEAR - STEP 3: Does the patient need only verbal/nonverbal cueing or touching/steadying/contact guard assistance fro m one helper? No. FOOTWEAR - STEP 4: Does the patient need physical assistance - for example lifting or trunk support from one helper - wi th the helper providing less than half of the effort? No. FOOTWEAR - STEP 5: Does the patient need physical assistance - for example lifting or trunk support from one helper - wi th the helper providing more than half of the effort? Yes. 1. [id number] ADMISSION PERFORMANCE: Substantial/maximal assistance CODE: 02 ROLL LEFT AND RIGHT: ROLL LEFT AND RIGHT - STEP 5: Does the patient need physical assistance - for example lifting or trunk support from one helper - wi th the helper providing more than half of the effort? Yes. 1. [id number] ADMISSION PERFORMANCE: Substantial/maximal assistance CODE: 02 SIT TO LYING: SIT TO LYING - STEP 5: Does the patient need physical assistance - for example lifting or trunk support from one helper - wi th the helper providing more than half of the effort? Yes. 1. [id number] ADMISSION PERFORMANCE: Substantial/maximal assistance CODE: 02 LYING TO SITTING: LYING TO SITTING ON SIDE OF BED - STEP 5: Does the patient need physical assistance - for example lifting or trunk support from one helper - wi th the helper providing more than half of the effort? Yes. 1. [id number] ADMISSION PERFORMANCE: Substantial/maximal assistance CODE: 02 SIT TO STAND: SIT TO STAND - STEP 5: Does the patient need physical assistance - for example lifting or trunk support from one helper - wi th the helper providing more than half of the effort? Yes. 1. [id number] ADMISSION PERFORMANCE: Substantial/maximal assistance CODE: 02 TRANSFERS: BED, CHAIR: CHAIR/[id number] TRANSFER - STEP 5: Does the patient need physical assistance - for example lifting or trunk support from one helper - wi th the helper providing more than half of the effort? Yes. 1. [id number] ADMISSION PERFORMANCE: Substantial/maximal assistance CODE: 02 TRANSFER TOILET: TOILET TRANSFER - STEP 5: Does the patient need physical assistance - for example lifting or trunk support from one helper - wi th the helper providing more than half of the effort? Yes. 1. [id number] ADMISSION PERFORMANCE: Substantial/maximal assistance CODE: 02 TRANSFERS: CAR: Not assessed/no information CODE: - WALK 10 FEET: Not assessed/no information CODE: - 1 STEP (CURB): Not assessed/no information CODE: - PICKING UP OBJECT: Not assessed/no information CODE: - DOES THE PATIENT USE A WHEELCHAIR/SCOOTER? Q1. DOES THE PATIENT USE A WHEELCHAIR/SCOOTER?: Yes CODE: 1 WHEEL 50 FEET WITH TWO TURNS: WHEEL 50 FEET WITH TWO TURNS - STEP 1: Does the patient complete the activity by him/herself with no assistance (physical, verbal/nonverbal cueing, setup/clean-up)? No. WHEEL 50 FEET WITH TWO TURNS - STEP 2: Does the patient need only setup/clean-up assistance from one helper? No. WHEEL 50 FEET WITH TWO TURNS - STEP 3: Does the patient need only verbal/nonverbal cueing or touching/steadying/contact guard assistance fro m one helper? Yes. 1. [id number] ADMISSION PERFORMANCE: Supervision or touching assistance CODE: 04 INDICATE THE TYPE OF WHEELCHAIR/SCOOTER USED: RR1. INDICATE THE TYPE OF WHEELCHAIR/SCOOTER USED.: Manual CODE: 1 WHEEL 150 FEET: Not assessed/no information CODE: - INDICATE THE TYPE OF WHEELCHAIR/SCOOTER USED: SS1. INDICATE THE TYPE OF WHEELCHAIR/SCOOTER USED.: Manual CODE: 1 BLADDER AND BOWEL: H350. BLADDER CONTINENCE (3-DAY ASSESSMENT PERIOD): Always continent (no documented incontinence) CODE: 0 H400. BOWEL CONTINENCE (3-DAY ASSESSMENT PERIOD): Always continent CODE: 0 SIGNATURE PANEL: The following modified sections: 1. [id number] Admission Performance, 1. [id number] Admission Performance, 1. [id number] Admission Performance, 1. VB6811u Admission Performance, 1. [id number] Admission Performance, 1. [id number] Admission Performance, 1. [id number] Admission Performance, 1. [id number] Admission Performance , 1. [id number] Admission Performance, 1. [id number] Admission Performance, 1. [id number] Admission Performanc e, 1. [id number] Admission Performance, Q1. Does the patient use a wheelchair/scooter?, 1. AZ2030W Admis willie Performance, RR1. Indicate the type of wheelchair/scooter used., Code, SS1. Indicate the type of wheelchair/scooter used., H350. Bladder Continence (3-day assessment period), H400. Bowel Continence (3-day assessment period) were [electronically] signed by Hilda Ayers C.N.A. on WedMar 27 2019 15 :43:17 GMT-0600 (Central Standard Time)
[2019-03-27] MEDS: ENOXAPARIN 40 MG/0.4 ML SQ SCH (16:41)
[2019-03-27] MEDS: DOCUSATE NA/SENNA CONC 1 TAB PO PRN (19:25)
[2019-03-27] MEDS: MAGNESIUM OXIDE 400 MG TAB PO SCH (19:26)
[2019-03-27] MEDS: ALPRAZOLAM 0.5 MG TABLET PO SCH (19:26)
[2019-03-27] MEDS: MELATONIN 3 MG TABLET PO SCH (19:26)
--- NOTE | 2019-03-27 20:28 | R.PN ---
ENCOUNTER DATE AND TIME: 03/27/2019 20:24 (UNIT AIDE TECH) NAME GLENN WALKER DATE OF : 1955 DATE OF ADMISSION: 03/11/2019 14:31 (UNIT AIDE TECH) Brain MassIntracranial HemorrhageRight [place] Infarct[place]IEF COMPLAINT: Left sided weakness and debility SUBJECTIVE: Pt denied any depression. Pt denied any Shortness of Breath. She denies headache or nausea. She is making better progress with physical and occupational therapy. Her ADLs were performed with minimum assistance. Ambulated 300' with contact guard assistance using a rolling walker. On Cipro for UTI. Hgb 12.3, WBC 6.9, prealbumin 19.5. She has a mildly pruritic flat non-daisha petechial rash on the right medial leg measuring about 5" b y 3". The rash has the appearance of contact dermatitis. Treated with topical steroids and it is impr oving. VITAL SIGNS Temperature: 97.3 F SBP/DBP: 138/74 Pulse: 75 Resp: 16 MEDICATION ALLERGIES: No Known Drug Allergies (NKDA) ENVIRONMENTAL ALLERGIES: None Known - Substance Allergies None Known - Other Allergies None Known NURSING: - Shower allowing shower - Bladder care per protocol - Skin care per protocol PRECAUTIONS: - Fall Precaution Bed alarm TABS alarm Wheel chair alarm ACTIVITIES OOB only with supervision THERAPIES: - Occupational Therapy Cognitive Retraining. Visual Perceptual Training. - Dietary and Nutrition Adequate Nutrition. Nutritional Education. Nutritional Supplements. - Speech Therapy Cognitive Training. Expressive Language Skills. Memory Strategies. Receptive Language Skills. Speech Intelligibility Training. PHYSICAL EXAM - Gen Alert and awake Lying in bed No apparent distress Oriented to: person, time, and place - Skin No breakdown Normacephalic Scalp surgical site intact - Eyes No abnormalities - ENMT No abnormalities - Neck No abnormalities - CVS RRR - Chest No abnormalities - Resp Clear to auscultation - Abd + bowel sounds - GI Soft Deferred - No abnormalities - Ext no edema - MSK 3-4+/5 weakness in both lower extremities. - Neuro Diffuse weakness, incoordination and unsteady gait - Psych Moderate depression. ASSESSMENT: Pt. 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 was independent/mod-I in Locomotion, Safety Awarenes s, Balance, Social Cognition, Transfers Control, Sphincter Control, Self-Care, Communication, and End urance; and she had good Locomotion, Safety Awareness, Balance, Social Cognition, Transfers Control, Sphincter Control, Self-Care, Communication, and Endurance.Currently, she has deficits of Locomotion, Balance, Safety Awareness, Transfers Control, Self-Care, Endurance, and Communication.Pt. is now ref erred to [facility] for acute in-patient rehabilitation in order to maximize p atient's functional independence in activities of daily living, strength, ROM, and mobility.- Rehab G oal Patient has realistic goal of being discharged at assistance level 6-Danielle to reside at Home with Fam adriana/Relatives. MDM/PLAN: - Physical Therapy Gait dysfunction - to improve, our physical therapists will perform initial evaluation of pt's statu s upon admission and devise an individualized program for Gait Training, and Wheel Chair mobility Inability to transfer - to improve, our physical therapists will perform initial evaluation of pt's status upon admission and devise an individualized program for Bed mobility Need for home safety evaluation - to improve, our physical therapists will perform initial evaluatio n of pt's status upon admission and devise an individualized program for Home Evaluation Need in caregiver upon discharge - to improve, our physical therapists will perform initial evaluati on of pt's status upon admission and devise an individualized program for Caregiver Training New precaution - to improve, our physical therapists will perform initial evaluation of pt's status upon admission and devise an individualized program for Patient precaution education Poor balance - to improve, our physical therapists will perform initial evaluation of pt's status up on admission and devise an individualized program for Balance Training Poor endurance - to improve, our physical therapists will perform initial evaluation of pt's status upon admission and devise an individualized program for Endurance Training Weakness - to improve, our physical therapists will perform initial evaluation of pt's status upon a dmission and devise an individualized program for Aquatic Therapy, Neuromuscular Reeducation, and Str engthening Achieving independence - to improve, our physical therapists will perform initial evaluation of pt's status upon admission and devise an individualized program for Community Reintegration Activities - Occupational Therapy ADL deficits - to improve, our occupation therapists will perform initial evaluation of pt's status upon admission and devise an individualized program for Bathing, Bed mobility, Community Reintegratio n, Cooking, Dressing, Eating, Fine Motor Skills, Grooming, Homemaking, Kitchen Mobility, Laundry, Pat ient Education, Safety Awareness, Splinting - Positioning, Transfers(Toilet, Tub, Shower), and Wheel Chair Management Need for critical care unit nurse - to improve, our occupation therapists will perform initial evaluation of pt's status upon admission and devise an individualized program for Caregiver Training Weakness - to improve, our occupation therapists will perform initial evaluation of pt's status upon admission and devise an individualized program for Aquatic Therapy, Balance, Endurance, UE ROM, and UE strengthening - Other See attached MAR (Medication Administration Record) Oma Glenn.pdf See attached MAR (Medication Administration Record) - Diet Type Continue Regular - Diet - Liquid Texture Continue Regular - Tube Feed Continue N/A - Bladder care per protocol - Fall Precaution Bed alarm TABS alarm Wheel chair alarm - Skin care per protocol - Diet - Solid Texture Continue Regular - Shower allowing shower for Dementia, TBI, Stroke, or others FUNCTIONAL STATUS: UPDATED AT WEEKLY TEAM CONFERENCE - Bladder Same accident frequency: 7-Ind - No accidents in the past 7 days - Bowel Same accident frequency: 7-Ind - No accidents in the past 7 days - Walking Same score based on distance walked: 0(N/A) - Wheelchair Same score based on distance traveled: 0(N/A) Same score based on distance traveled: 3(>=150ft) FUNCTIONAL STATUS: - Self-Care A. Eating Danielle B. Grooming Paresh C. Bathing modA D. Dressing - Upper modA E. Dressing - Lower Paresh F. Toileting modA - Sphincter Control G. Bladder control modA H. Bowel control Paresh - Transfers Control I. Bed/Chair/Wheelchair maxA J. Toilet maxA K. Tub/Shower maxA - Locomotion L. Walk/Wheelchair (B) maxA M. Stairs ADNO - Communication N. Comprehension (B) Paresh O. Expression (B) Paresh - Social Cognition P. Social Interaction sup Q. Problem Solving sup R. Memory sup - Endurance Good - Balance Good - Safety Awareness Good QI SCORES: - Self-Care A. Eating 05-Setup or clean-up assistance B. Oral hygiene 05-Setup or clean-up assistance C. Toileting hygiene 03-Partial/moderate assistance E. Shower/bathe self 02-Substantial/maximal assistance F. Upper body dressing 03-Partial/moderate assistance G. Lower body dressing 02-Substantial/maximal assistance H. Putting on/taking off footwear 01-Dependent - Mobility A. Roll left and right 03-Partial/moderate assistance B. Sit to lying 02-Substantial/maximal assistance C. Lying to sitting on side of bed 02-Substantial/maximal assistance D. Sit to stand 02-Substantial/maximal assistance E. Chair/[id number] transfer 02-Substantial/maximal assistance F. Toilet transfer 02-Substantial/maximal assistance G. Car transfer 88-Not attempted due to medical condition or safety concerns I. Walk 10 feet 88-Not attempted due to medical condition or safety concerns J. Walk 50 feet with two turns 88-Not attempted due to medical condition or safety concerns K. Walk 150 feet 88-Not attempted due to medical condition or safety concerns L. Walking 10 feet on uneven surfaces 88-Not attempted due to medical condition or safety concerns M. 1 step (curb) 88-Not attempted due to medical condition or safety concerns N. 4 steps 88-Not attempted due to medical condition or safety concerns O. 12 steps 88-Not attempted due to medical condition or safety concerns P. Picking up object 88-Not attempted due to medical condition or safety concerns R. Wheel 50 feet with two turns 02-Substantial/maximal assistance S. Wheel 150 feet 02-Substantial/maximal assistance - Bladder and Bowel Bladder continence 0-Always continent Bowel continence 0-Always continent - Endurance Poor - Balance Poor - Safety Awareness Fair CURRENT FUNC. DEFICITS: Self-Care, Mobility, Endurance, Balance, and Safety Awareness SIGNATURE PANEL: (UNIT AIDE TECH)
--- NOTE | 2019-03-27 23:10 | PN ---
Date of Progress Note: 03/27/2019 Subjective: Patient was seen this morning for followup. No new complaints or problems reported by gianna alberto. She was sitting in chair. Denied any complaints. Slept very well last night. Leg swelling is better. Objective: Vital Signs: Reviewed. HEENT: Unremarkable. Lungs: Clear to auscultation. Heart: Heart sounds normal. Abdomen: Soft, bowel sounds normal. No guarding, rigidity, tenderness, or distention. Extremities: Leg edema is better today than yesterday. Impression: 1.Leg edema. 2.Hypertension. 3.Stroke with left-sided hemiparesis. Plan: Patient reported this morning that in the past she had problem with one of the blood pressure medications that caused a lot of trouble with dry cough, so with that information in mind, she was or dered to start lisinopril starting this morning, but I have discontinued that and we will start her o n losartan 25 mg daily. Other medications will be continued. I will see her tomorrow for followup. JULIO/MODL Voice ID: [id number] Report ID: [id number]
[2019-03-28] MEDS: TRIAMCINOLONE 0.1% CREAM 15GM TOP SCH ×2 (08:00→20:00)
[2019-03-28] MEDS: CLOTRIMAZOLE 1% CREAM 15 GM TOP SCH ×2 (08:00→20:00)
[2019-03-28] MEDS: LOSARTAN POTASSIUM 50 MG TABLET PO SCH (08:15)
[2019-03-28] MEDS: DULOXETINE 20 MG CAP PO SCH (08:16)
[2019-03-28] MEDS: ENOXAPARIN 40 MG/0.4 ML SQ SCH (16:04)
--- NOTE | 2019-03-28 16:52 | R.PN ---
ENCOUNTER DATE AND TIME: 03/28/2019 16:48 (DIRECTOR DATA PROCESSING) NAME GLENN WALKER DATE OF : 1955 DATE OF ADMISSION: 03/11/2019 14:31 (DIRECTOR DATA PROCESSING) Brain MassIntracranial HemorrhageRight [place] InfarctCHIEF COMPLAINT: Left sided weakness and debility SUBJECTIVE: Pt denied any depression. Pt denied any Shortness of Breath. She denies headache or nausea. She is making better progress with physical and occupational therapy. Her ADLs were performed with minimum assistance. Ambulated 300' with contact guard assistance using a rolling walker. On Cipro for UTI. Hgb 12.3, WBC 6.9, prealbumin 19.5. She has a mildly pruritic flat non-daisha petechial rash on the right medial leg measuring about 5" b y 3". The rash has the appearance of contact dermatitis. Treated with topical steroids and it is impr oving. VITAL SIGNS Temperature: 97.6 F SBP/DBP: 146/70 Pulse: 79 Resp: 16 MEDICATION ALLERGIES: No Known Drug Allergies (NKDA) ENVIRONMENTAL ALLERGIES: None Known - Substance Allergies None Known - Other Allergies None Known NURSING: - Shower allowing shower - Bladder care per protocol - Skin care per protocol PRECAUTIONS: - Fall Precaution Bed alarm TABS alarm Wheel chair alarm ACTIVITIES OOB only with supervision THERAPIES: - Occupational Therapy Cognitive Retraining. Visual Perceptual Training. - Dietary and Nutrition Adequate Nutrition. Nutritional Education. Nutritional Supplements. - Speech Therapy Cognitive Training. Expressive Language Skills. Memory Strategies. Receptive Language Skills. Speech Intelligibility Training. PHYSICAL EXAM - Gen Alert and awake Lying in bed No apparent distress Oriented to: person, time, and place - Skin No breakdown Normacephalic Scalp surgical site intact - Eyes No abnormalities - ENMT No abnormalities - Neck No abnormalities - CVS RRR - Chest No abnormalities - Resp Clear to auscultation - Abd + bowel sounds - GI Soft Deferred - No abnormalities - Ext no edema - MSK 3-4+/5 weakness in both lower extremities. - Neuro Diffuse weakness, incoordination and unsteady gait - Psych Moderate depression. ASSESSMENT: Pt. 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 was independent/mod-I in Locomotion, Safety Awarenes s, Balance, Social Cognition, Transfers Control, Sphincter Control, Self-Care, Communication, and End urance; and she had good Locomotion, Safety Awareness, Balance, Social Cognition, Transfers Control, Sphincter Control, Self-Care, Communication, and Endurance.Currently, she has deficits of Locomotion, Balance, Safety Awareness, Transfers Control, Self-Care, Endurance, and Communication.Pt. is now ref erred to [facility] for acute in-patient rehabilitation in order to maximize p atient's functional independence in activities of daily living, strength, ROM, and mobility.- Rehab G oal Patient has realistic goal of being discharged at assistance level 6-Danielle to reside at Home with Fam adriana/Relatives. MDM/PLAN: - Physical Therapy Gait dysfunction - to improve, our physical therapists will perform initial evaluation of pt's statu s upon admission and devise an individualized program for Gait Training, and Wheel Chair mobility Inability to transfer - to improve, our physical therapists will perform initial evaluation of pt's status upon admission and devise an individualized program for Bed mobility Need for home safety evaluation - to improve, our physical therapists will perform initial evaluatio n of pt's status upon admission and devise an individualized program for Home Evaluation Need in caregiver upon discharge - to improve, our physical therapists will perform initial evaluati on of pt's status upon admission and devise an individualized program for Caregiver Training New precaution - to improve, our physical therapists will perform initial evaluation of pt's status upon admission and devise an individualized program for Patient precaution education Poor balance - to improve, our physical therapists will perform initial evaluation of pt's status up on admission and devise an individualized program for Balance Training Poor endurance - to improve, our physical therapists will perform initial evaluation of pt's status upon admission and devise an individualized program for Endurance Training Weakness - to improve, our physical therapists will perform initial evaluation of pt's status upon a dmission and devise an individualized program for Aquatic Therapy, Neuromuscular Reeducation, and Str engthening Achieving independence - to improve, our physical therapists will perform initial evaluation of pt's status upon admission and devise an individualized program for Community Reintegration Activities - Occupational Therapy ADL deficits - to improve, our occupation therapists will perform initial evaluation of pt's status upon admission and devise an individualized program for Bathing, Bed mobility, Community Reintegratio n, Cooking, Dressing, Eating, Fine Motor Skills, Grooming, Homemaking, Kitchen Mobility, Laundry, Pat ient Education, Safety Awareness, Splinting - Positioning, Transfers(Toilet, Tub, Shower), and Wheel Chair Management Need for healthcare science specialist - to improve, our occupation therapists will perform initial evaluation of pt's status upon admission and devise an individualized program for Caregiver Training Weakness - to improve, our occupation therapists will perform initial evaluation of pt's status upon admission and devise an individualized program for Aquatic Therapy, Balance, Endurance, UE ROM, and UE strengthening - Other See attached MAR (Medication Administration Record) Oma Glenn.pdf See attached MAR (Medication Administration Record) - Diet Type Continue Regular - Diet - Liquid Texture Continue Regular - Tube Feed Continue N/A - Bladder care per protocol - Fall Precaution Bed alarm TABS alarm Wheel chair alarm - Skin care per protocol - Diet - Solid Texture Continue Regular - Shower allowing shower for Dementia, TBI, Stroke, or others FUNCTIONAL STATUS: UPDATED AT WEEKLY TEAM CONFERENCE - Bladder Same accident frequency: 7-Ind - No accidents in the past 7 days - Bowel Same accident frequency: 7-Ind - No accidents in the past 7 days - Walking Same score based on distance walked: 0(N/A) - Wheelchair Same score based on distance traveled: 0(N/A) Same score based on distance traveled: 3(>=150ft) FUNCTIONAL STATUS: - Self-Care A. Eating Danielle B. Grooming Paresh C. Bathing modA D. Dressing - Upper modA E. Dressing - Lower Paresh F. Toileting modA - Sphincter Control G. Bladder control modA H. Bowel control Paresh - Transfers Control I. Bed/Chair/Wheelchair maxA J. Toilet maxA K. Tub/Shower maxA - Locomotion L. Walk/Wheelchair (B) maxA M. Stairs ADNO - Communication N. Comprehension (B) Paresh O. Expression (B) Paresh - Social Cognition P. Social Interaction sup Q. Problem Solving sup R. Memory sup - Endurance Good - Balance Good - Safety Awareness Good QI SCORES: - Self-Care A. Eating 05-Setup or clean-up assistance B. Oral hygiene 05-Setup or clean-up assistance C. Toileting hygiene 03-Partial/moderate assistance E. Shower/bathe self 02-Substantial/maximal assistance F. Upper body dressing 03-Partial/moderate assistance G. Lower body dressing 02-Substantial/maximal assistance H. Putting on/taking off footwear 01-Dependent - Mobility A. Roll left and right 03-Partial/moderate assistance B. Sit to lying 02-Substantial/maximal assistance C. Lying to sitting on side of bed 02-Substantial/maximal assistance D. Sit to stand 02-Substantial/maximal assistance E. Chair/[id number] transfer 02-Substantial/maximal assistance F. Toilet transfer 02-Substantial/maximal assistance G. Car transfer 88-Not attempted due to medical condition or safety concerns I. Walk 10 feet 88-Not attempted due to medical condition or safety concerns J. Walk 50 feet with two turns 88-Not attempted due to medical condition or safety concerns K. Walk 150 feet 88-Not attempted due to medical condition or safety concerns L. Walking 10 feet on uneven surfaces 88-Not attempted due to medical condition or safety concerns M. 1 step (curb) 88-Not attempted due to medical condition or safety concerns N. 4 steps 88-Not attempted due to medical condition or safety concerns O. 12 steps 88-Not attempted due to medical condition or safety concerns P. Picking up object 88-Not attempted due to medical condition or safety concerns R. Wheel 50 feet with two turns 02-Substantial/maximal assistance S. Wheel 150 feet 02-Substantial/maximal assistance - Bladder and Bowel Bladder continence 0-Always continent Bowel continence 0-Always continent - Endurance Poor - Balance Poor - Safety Awareness Fair CURRENT FUNC. DEFICITS: Self-Care, Mobility, Endurance, Balance, and Safety Awareness SIGNATURE PANEL: (DIRECTOR DATA PROCESSING)
[2019-03-28] MEDS: MELATONIN 3 MG TABLET PO SCH (19:59)
[2019-03-28] MEDS: DOCUSATE NA/SENNA CONC 1 TAB PO PRN (20:00)
[2019-03-28] MEDS: ALPRAZOLAM 0.5 MG TABLET PO SCH (20:00)
[2019-03-28] MEDS: MAGNESIUM OXIDE 400 MG TAB PO SCH (20:00)
--- NOTE | 2019-03-29 00:44 | PN ---
Date of Progress Note: 03/28/2019 Subjective: Patient was seen this morning for followup. No new complaints or problems reported by h er. Leg swelling is better. Rash from lower leg is better. Objective: Vital Signs: Reviewed. HEENT: Unremarkable. Lungs: Clear to auscultation. Heart: Sounds normal. Abdomen: Soft. Bowel sounds normal. No guarding, rigidity, tenderness, or distention. Extremities: No leg edema and rash from both lower extremities much better than before. Impression: 1.Hypertension. 2.Leg edema. 3.Stroke with left-sided hemiparesis. 4.Insomnia. Plan: Continue current antihypertensive medication, losartan. Continue current DVT prophylaxis and I will see her tomorrow for followup. Continue alprazolam and melatonin at bedtime. JULIO/MODL Voice ID: [id number] Report ID: [id number]
[2019-03-29] MEDS: CLOTRIMAZOLE 1% CREAM 15 GM TOP SCH ×2 (08:00→20:00)
[2019-03-29] MEDS: TRIAMCINOLONE 0.1% CREAM 15GM TOP SCH ×2 (08:00→20:02)
[2019-03-29] MEDS: DULOXETINE 20 MG CAP PO SCH (08:29)
[2019-03-29] MEDS: LOSARTAN POTASSIUM 50 MG TABLET PO SCH (08:29)
[2019-03-29] MEDS: ENOXAPARIN 40 MG/0.4 ML SQ SCH (16:25)
[2019-03-29] MEDS: MAGNESIUM OXIDE 400 MG TAB PO SCH (20:03)
[2019-03-29] MEDS: ALPRAZOLAM 0.5 MG TABLET PO SCH (20:03)
[2019-03-29] MEDS: DOCUSATE NA/SENNA CONC 1 TAB PO PRN (20:03)
[2019-03-29] MEDS: MELATONIN 3 MG TABLET PO SCH (20:03)
--- NOTE | 2019-03-29 21:49 | R.PN ---
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 Pt denied any Shortness of Breath. She denies headache or nausea. She is making better progress with physical and occupational therapy. Her ADLs were performed with minimum assistance. Ambulated 300' with contact guard assistance using a rolling walker. On Cipro for UTI. Hgb 12.3, WBC 6.9, prealbumin 19.5. She has a mildly pruritic flat non-daisha petechial rash on the right medial leg measuring about 5" b y 3". The rash has the appearance of contact dermatitis. Treated with topical steroids and it is impr oving. VITAL SIGNS Temperature: 97.8 F SBP/DBP: 130/60 Pulse: 73 Resp: 16 MEDICATION ALLERGIES: No Known Drug Allergies (NKDA) ENVIRONMENTAL ALLERGIES: None Known - Substance Allergies None Known - Other Allergies None Known NURSING: - Shower allowing shower - Bladder care per protocol - Skin care per protocol PRECAUTIONS: - Fall Precaution Bed alarm TABS alarm Wheel chair alarm ACTIVITIES OOB only with supervision THERAPIES: - Occupational Therapy Cognitive Retraining. Visual Perceptual Training. - Dietary and Nutrition Adequate Nutrition. Nutritional Education. Nutritional Supplements. - Speech Therapy Cognitive Training. Expressive Language Skills. Memory Strategies. Receptive Language Skills. Speech Intelligibility Training. PHYSICAL EXAM - Gen Alert and awake Lying in bed No apparent distress Oriented to: person, time, and place - Skin No breakdown Normacephalic Scalp surgical site intact - Eyes No abnormalities - ENMT No abnormalities - Neck No abnormalities - CVS RRR - Chest No abnormalities - Resp Clear to auscultation - Abd + bowel sounds - GI Soft Deferred - No abnormalities - Ext no edema - MSK 3-4+/5 weakness in both lower extremities. - Neuro Diffuse weakness, incoordination and unsteady gait - Psych Moderate depression. ASSESSMENT: Pt. 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 was independent/mod-I in Locomotion, Safety Awarenes s, Balance, Social Cognition, Transfers Control, Sphincter Control, Self-Care, Communication, and End urance; and she had good Locomotion, Safety Awareness, Balance, Social Cognition, Transfers Control, Sphincter Control, Self-Care, Communication, and Endurance.Currently, she has deficits of Locomotion, Balance, Safety Awareness, Transfers Control, Self-Care, Endurance, and Communication.Pt. is now ref erred to [facility] for acute in-patient rehabilitation in order to maximize p atient's functional independence in activities of daily living, strength, ROM, and mobility.- Rehab G oal Patient has realistic goal of being discharged at assistance level 6-Danielle to reside at Home with Fam adriana/Relatives. MDM/PLAN: - Physical Therapy Gait dysfunction - to improve, our physical therapists will perform initial evaluation of pt's statu s upon admission and devise an individualized program for Gait Training, and Wheel Chair mobility Inability to transfer - to improve, our physical therapists will perform initial evaluation of pt's status upon admission and devise an individualized program for Bed mobility Need for home safety evaluation - to improve, our physical therapists will perform initial evaluatio n of pt's status upon admission and devise an individualized program for Home Evaluation Need in caregiver upon discharge - to improve, our physical therapists will perform initial evaluati on of pt's status upon admission and devise an individualized program for Caregiver Training New precaution - to improve, our physical therapists will perform initial evaluation of pt's status upon admission and devise an individualized program for Patient precaution education Poor balance - to improve, our physical therapists will perform initial evaluation of pt's status up on admission and devise an individualized program for Balance Training Poor endurance - to improve, our physical therapists will perform initial evaluation of pt's status upon admission and devise an individualized program for Endurance Training Weakness - to improve, our physical therapists will perform initial evaluation of pt's status upon a dmission and devise an individualized program for Aquatic Therapy, Neuromuscular Reeducation, and Str engthening Achieving independence - to improve, our physical therapists will perform initial evaluation of pt's status upon admission and devise an individualized program for Community Reintegration Activities - Occupational Therapy ADL deficits - to improve, our occupation therapists will perform initial evaluation of pt's status upon admission and devise an individualized program for Bathing, Bed mobility, Community Reintegratio n, Cooking, Dressing, Eating, Fine Motor Skills, Grooming, Homemaking, Kitchen Mobility, Laundry, Pat ient Education, Safety Awareness, Splinting - Positioning, Transfers(Toilet, Tub, Shower), and Wheel Chair Management Need for medicare biller - to improve, our occupation therapists will perform initial evaluation of pt's status upon admission and devise an individualized program for Caregiver Training Weakness - to improve, our occupation therapists will perform initial evaluation of pt's status upon admission and devise an individualized program for Aquatic Therapy, Balance, Endurance, UE ROM, and UE strengthening - Other See attached MAR (Medication Administration Record) Oma Glenn.pdf See attached MAR (Medication Administration Record) - Diet Type Continue Regular - Diet - Liquid Texture Continue Regular - Tube Feed Continue N/A - Bladder care per protocol - Fall Precaution Bed alarm TABS alarm Wheel chair alarm - Skin care per protocol - Diet - Solid Texture Continue Regular - Shower allowing shower for Dementia, TBI, Stroke, or others FUNCTIONAL STATUS: UPDATED AT WEEKLY TEAM CONFERENCE - Bladder Same accident frequency: 7-Ind - No accidents in the past 7 days - Bowel Same accident frequency: 7-Ind - No accidents in the past 7 days - Walking Same score based on distance walked: 0(N/A) - Wheelchair Same score based on distance traveled: 0(N/A) Same score based on distance traveled: 3(>=150ft) FUNCTIONAL STATUS: - Self-Care A. Eating Danielle B. Grooming Paresh C. Bathing modA D. Dressing - Upper modA E. Dressing - Lower Paresh F. Toileting modA - Sphincter Control G. Bladder control modA H. Bowel control Paresh - Transfers Control I. Bed/Chair/Wheelchair maxA J. Toilet maxA K. Tub/Shower maxA - Locomotion L. Walk/Wheelchair (B) maxA M. Stairs ADNO - Communication N. Comprehension (B) Paresh O. Expression (B) Paresh - Social Cognition P. Social Interaction sup Q. Problem Solving sup R. Memory sup - Endurance Good - Balance Good - Safety Awareness Good QI SCORES: - Self-Care A. Eating 05-Setup or clean-up assistance B. Oral hygiene 05-Setup or clean-up assistance C. Toileting hygiene 03-Partial/moderate assistance E. Shower/bathe self 02-Substantial/maximal assistance F. Upper body dressing 03-Partial/moderate assistance G. Lower body dressing 02-Substantial/maximal assistance H. Putting on/taking off footwear 01-Dependent - Mobility A. Roll left and right 03-Partial/moderate assistance B. Sit to lying 02-Substantial/maximal assistance C. Lying to sitting on side of bed 02-Substantial/maximal assistance D. Sit to stand 02-Substantial/maximal assistance E. Chair/mhl-jc-kyjof transfer 02-Substantial/maximal assistance F. Toilet transfer 02-Substantial/maximal assistance G. Car transfer 88-Not attempted due to medical condition or safety concerns I. Walk 10 feet 88-Not attempted due to medical condition or safety concerns J. Walk 50 feet with two turns 88-Not attempted due to medical condition or safety concerns K. Walk 150 feet 88-Not attempted due to medical condition or safety concerns L. Walking 10 feet on uneven surfaces 88-Not attempted due to medical condition or safety concerns M. 1 step (curb) 88-Not attempted due to medical condition or safety concerns N. 4 steps 88-Not attempted due to medical condition or safety concerns O. 12 steps 88-Not attempted due to medical condition or safety concerns P. Picking up object 88-Not attempted due to medical condition or safety concerns R. Wheel 50 feet with two turns 02-Substantial/maximal assistance S. Wheel 150 feet 02-Substantial/maximal assistance - Bladder and Bowel Bladder continence 0-Always continent Bowel continence 0-Always continent - Endurance Poor - Balance Poor - Safety Awareness Fair CURRENT FUNC. 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
--- NOTE | 2019-03-30 00:50 | PN ---
Date of Progress Note: 03/29/2019 Subjective: Patient was seen this morning for followup. She was feeling fine. Denied any complaint s. Objective: Vital Signs: Reviewed. HEENT: Unremarkable. Lungs: Clear to auscultation. Cardiac: Heart sounds normal. Abdomen: Soft. Bowel sounds normal. No guarding, rigidity, tenderness, or distention. Extremities: No leg edema and rash from both lower extremities significantly better. Impression: 1.Hypertension. 2.Leg edema, resolved. 3.Stroke with left-sided hemiparesis. 4.Insomnia. Plan: Continue current medication. We will continue to monitor blood pressure and make necessary ad justment on antihypertensive medication if needed. Continue current treatment for insomnia and I belen l see her tomorrow. JULIO/MODL Voice ID: [id number] Report ID: [id number]
[2019-03-30 06:31] LABS: Absolute Lymphocytes (CBC) 2.4 K/uL (0.7-4.9); Basophils % 0.4 % (0-1.3); Hematocrit 34.9 % (36.0-45.0); Lymphocytes % 33.8 % (15.3-44.8); MPV 9.3 fL (7.6-11.3); RBC Red Blood Cell Count 3.79 M/uL (3.86-4.86)
[2019-03-30 06:51] LABS: Albumin 2.9 g/dL (3.4-5.0); BUN Blood Urea Nitrogen 19 mg/dL (7-18); Bicarbonate 26 mmol/L (21-32); Glucose Level 124 mg/dL (74-106); Magnesium 2.4 mg/dL (1.8-2.4); Potassium 3.9 mmol/L (3.5-5.1); Prealbumin 18.8 mg/dL (20-40); Sodium Level 144 mmol/L (136-145)
[2019-03-30] MEDS: CLOTRIMAZOLE 1% CREAM 15 GM TOP SCH ×2 (08:00→20:31)
[2019-03-30] MEDS: LOSARTAN POTASSIUM 50 MG TABLET PO SCH (08:00)
[2019-03-30] MEDS: TRIAMCINOLONE 0.1% CREAM 15GM TOP SCH ×2 (08:00→20:30)
[2019-03-30] MEDS: DULOXETINE 20 MG CAP PO SCH (08:00)
--- NOTE | 2019-03-30 15:45 | FAST ---
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 Sawyer Rios M.D. 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 - Stroke 01 - Other Stroke (01.9) Intracranial Hemorrhage. Right [place] Infarct. ROLL LEFT AND RIGHT: ROLL LEFT AND RIGHT - STEP 1: Does the patient complete the activity by him/herself with no assistance (physical, verbal/nonverbal cueing, setup/clean-up)? No. ROLL LEFT AND RIGHT - STEP 2: Does the patient need only setup/clean-up assistance from one helper? No. ROLL LEFT AND RIGHT - STEP 3: Does the patient need only verbal/nonverbal cueing or touching/steadying/contact guard assistance fro m one helper? Yes. 1. [id number] ADMISSION PERFORMANCE: Supervision or touching assistance CODE: 04 SIT TO LYING: SIT TO LYING - STEP 1: Does the patient complete the activity by him/herself with no assistance (physical, verbal/nonverbal cueing, setup/clean-up)? No. SIT TO LYING - STEP 2: Does the patient need only setup/clean-up assistance from one helper? No. SIT TO LYING - STEP 3: Does the patient need only verbal/nonverbal cueing or touching/steadying/contact guard assistance fro m one helper? Yes. 1. [id number] ADMISSION PERFORMANCE: Supervision or touching assistance CODE: 04 LYING TO SITTING: LYING TO SITTING ON SIDE OF BED - STEP 1: Does the patient complete the activity by him/herself with no assistance (physical, verbal/nonverbal cueing, setup/clean-up)? No. LYING TO SITTING ON SIDE OF BED - STEP 2: Does the patient need only setup/clean-up assistance from one helper? No. LYING TO SITTING ON SIDE OF BED - STEP 3: Does the patient need only verbal/nonverbal cueing or touching/steadying/contact guard assistance fro m one helper? Yes. 1. [id number] ADMISSION PERFORMANCE: Supervision or touching assistance CODE: 04 SIT TO STAND: SIT TO STAND - STEP 1: Does the patient complete the activity by him/herself with no assistance (physical, verbal/nonverbal cueing, setup/clean-up)? No. SIT TO STAND - STEP 2: Does the patient need only setup/clean-up assistance from one helper? No. SIT TO STAND - STEP 3: Does the patient need only verbal/nonverbal cueing or touching/steadying/contact guard assistance fro m one helper? Yes. 1. [id number] ADMISSION PERFORMANCE: Supervision or touching assistance CODE: 04 TRANSFERS: BED, CHAIR: CHAIR/[id number] TRANSFER - STEP 1: Does the patient complete the activity by him/herself with no assistance (physical, verbal/nonverbal cueing, setup/clean-up)? No. CHAIR/[id number] TRANSFER - STEP 2: Does the patient need only setup/clean-up assistance from one helper? No. CHAIR/[id number] TRANSFER - STEP 3: Does the patient need only verbal/nonverbal cueing or touching/steadying/contact guard assistance fro m one helper? Yes. 1. [id number] ADMISSION PERFORMANCE: Supervision or touching assistance CODE: 04 TRANSFER TOILET: TOILET TRANSFER - STEP 1: Does the patient complete the activity by him/herself with no assistance (physical, verbal/nonverbal cueing, setup/clean-up)? No. TOILET TRANSFER - STEP 2: Does the patient need only setup/clean-up assistance from one helper? No. TOILET TRANSFER - STEP 3: Does the patient need only verbal/nonverbal cueing or touching/steadying/contact guard assistance fro m one helper? Yes. 1. [id number] ADMISSION PERFORMANCE: Supervision or touching assistance CODE: 04 TRANSFERS: CAR: Not attempted due to environmental limitations (e.g., lack of equipment, weather constraints) CODE: 10 WALK 10 FEET: WALK 10 FEET - STEP 1: Does the patient complete the activity by him/herself with no assistance (physical, verbal/nonverbal cueing, setup/clean-up)? No. WALK 10 FEET - STEP 2: Does the patient need only setup/clean-up assistance from one helper? No. WALK 10 FEET - STEP 3: Does the patient need only verbal/nonverbal cueing or touching/steadying/contact guard assistance fro m one helper? Yes. 1. [id number] ADMISSION PERFORMANCE: Supervision or touching assistance CODE: WALK 50 FEET: WALK 50 FEET - STEP 1: Does the patient complete the activity by him/herself with no assistance (physical, verbal/nonverbal cueing, setup/clean-up)? No. WALK 50 FEET - STEP 2: Does the patient need only setup/clean-up assistance from one helper? No. WALK 50 FEET - STEP 3: Does the patient need only verbal/nonverbal cueing or touching/steadying/contact guard assistance fro m one helper? Yes. 1. [id number] ADMISSION PERFORMANCE: Supervision or touching assistance CODE: WALK 150 FEET: WALK 150 FEET - STEP 1: Does the patient complete the activity by him/herself with no assistance (physical, verbal/nonverbal cueing, setup/clean-up)? No. WALK 150 FEET - STEP 2: Does the patient need only setup/clean-up assistance from one helper? No. WALK 150 FEET - STEP 3: Does the patient need only verbal/nonverbal cueing or touching/steadying/contact guard assistance fro m one helper? Yes. 1. [id number] ADMISSION PERFORMANCE: Supervision or touching assistance CODE: WALK 10 FEET UNEVEN: Not attempted due to medical condition or safety concerns CODE: 88 1 STEP (CURB): 1 STEP CURB - STEP 1: Does the patient complete the activity by him/herself with no assistance (physical, verbal/nonverbal cueing, setup/clean-up)? No. 1 STEP CURB - STEP 2: Does the patient need only setup/clean-up assistance from one helper? No. 1 STEP CURB - STEP 3: Does the patient need only verbal/nonverbal cueing or touching/steadying/contact guard assistance fro m one helper? No. 1 STEP CURB - STEP 4: Does the patient need physical assistance - for example lifting or trunk support from one helper - wi th the helper providing less than half of the effort? Yes. 1. [id number] ADMISSION PERFORMANCE: Partial/moderate assistance CODE: 03 4 STEPS: 4 STEPS - STEP 1: Does the patient complete the activity by him/herself with no assistance (physical, verbal/nonverbal cueing, setup/clean-up)? No. 4 STEPS - STEP 2: Does the patient need only setup/clean-up assistance from one helper? No. 4 STEPS - STEP 3: Does the patient need only verbal/nonverbal cueing or touching/steadying/contact guard assistance fro m one helper? No. 4 STEPS - STEP 4: Does the patient need physical assistance - for example lifting or trunk support from one helper - wi th the helper providing less than half of the effort? Yes. 1. [id number] ADMISSION PERFORMANCE: Partial/moderate assistance CODE: 03 12 STEPS: Not attempted due to medical condition or safety concerns CODE: 88 PICKING UP OBJECT: Not attempted due to medical condition or safety concerns CODE: 88 DOES THE PATIENT USE A WHEELCHAIR/SCOOTER? Q1. DOES THE PATIENT USE A WHEELCHAIR/SCOOTER?: Yes CODE: 1 WHEEL 50 FEET WITH TWO TURNS: WHEEL 50 FEET WITH TWO TURNS - STEP 1: Does the patient complete the activity by him/herself with no assistance (physical, verbal/nonverbal cueing, setup/clean-up)? Yes. 1. [id number] ADMISSION PERFORMANCE: Independent CODE: 06 INDICATE THE TYPE OF WHEELCHAIR/SCOOTER USED: RR1. INDICATE THE TYPE OF WHEELCHAIR/SCOOTER USED.: Manual CODE: 1 WHEEL 150 FEET: WHEEL 150 FEET - STEP 1: Does the patient complete the activity by him/herself with no assistance (physical, verbal/nonverbal cueing, setup/clean-up)? Yes. 1. [id number] ADMISSION PERFORMANCE: Independent CODE: 06 INDICATE THE TYPE OF WHEELCHAIR/SCOOTER USED: SS1. INDICATE THE TYPE OF WHEELCHAIR/SCOOTER USED.: Manual CODE: 1 BLADDER AND BOWEL: CODE: EXPR CODE: EXPR SIGNATURE PANEL: The following modified sections: 1. [id number] Admission Performance, 1. [id number] Admission Performance, 1. [id number] Admission Performance, 1. [id number] Admission Performance, 1. [id number] Admission Performance, 1. [id number] Admission Performance, 1. [id number] Admission Performance, 1. [id number] Admission Performance , 1. [id number] Admission Performance, 1. [id number] Admission Performance, 1. [id number] Admission Performanc e, 1. [id number] Admission Performance, Q1. Does the patient use a wheelchair/scooter?, 1. [id number] Admis willie Performance, RR1. Indicate the type of wheelchair/scooter used., 1. [id number] Admission Performanc e, Code, SS1. Indicate the type of wheelchair/scooter used. were [electronically] signed by Marck perla PT on WedMar 30 2019 15:44:58 GMT-0600 (Central Standard Time)
[2019-03-30] MEDS: ENOXAPARIN 40 MG/0.4 ML SQ SCH (16:11)
[2019-03-30] MEDS: DOCUSATE NA/SENNA CONC 1 TAB PO PRN (20:30)
[2019-03-30] MEDS: MELATONIN 3 MG TABLET PO SCH (20:30)
[2019-03-30] MEDS: MAGNESIUM OXIDE 400 MG TAB PO SCH (20:30)
[2019-03-30] MEDS: ALPRAZOLAM 0.5 MG TABLET PO SCH (20:30)
--- NOTE | 2019-03-30 23:16 | R.PN ---
ENCOUNTER DATE AND TIME: 03/30/2019 23:11 (SUPPLIER RELATIONSHIP DIRECTOR) NAME GLENN WALKER DATE OF : 1955 DATE OF ADMISSION: 03/11/2019 14:31 (SUPPLIER RELATIONSHIP DIRECTOR) Brain MassIntracranial HemorrhageRight [place] InfarctCHIEF COMPLAINT: Left sided weakness and debility SUBJECTIVE: Pt denied any depression. Pt denied any Shortness of Breath. She denies headache or nausea. She is making better progress with physical and occupational therapy. Her ADLs were performed with minimum assistance. Ambulated 415' with contact guard assistance using a rolling walker. On Cipro for UTI. Hgb 12.3, WBC 6.9, prealbumin 19.5. She has a mildly pruritic flat non-daisha petechial rash on the right medial leg measuring about 5" b y 3". The rash has the appearance of contact dermatitis. Treated with topical steroids and it is impr oving. VITAL SIGNS Temperature: 97.4 F SBP/DBP: 117/66 Pulse: 76 Resp: 16 MEDICATION ALLERGIES: No Known Drug Allergies (NKDA) ENVIRONMENTAL ALLERGIES: None Known - Substance Allergies None Known - Other Allergies None Known NURSING: - Shower allowing shower - Bladder care per protocol - Skin care per protocol PRECAUTIONS: - Fall Precaution Bed alarm TABS alarm Wheel chair alarm ACTIVITIES OOB only with supervision THERAPIES: - Occupational Therapy Cognitive Retraining. Visual Perceptual Training. - Dietary and Nutrition Adequate Nutrition. Nutritional Education. Nutritional Supplements. - Speech Therapy Cognitive Training. Expressive Language Skills. Memory Strategies. Receptive Language Skills. Speech Intelligibility Training. PHYSICAL EXAM - Gen Alert and awake Lying in bed No apparent distress Oriented to: person, time, and place - Skin No breakdown Normacephalic Scalp surgical site intact - Eyes No abnormalities - ENMT No abnormalities - Neck No abnormalities - CVS RRR - Chest No abnormalities - Resp Clear to auscultation - Abd + bowel sounds - GI Soft Deferred - No abnormalities - Ext no edema - MSK 3-4+/5 weakness in both lower extremities. - Neuro Diffuse weakness, incoordination and unsteady gait - Psych Moderate depression. ASSESSMENT: Pt. 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 was independent/mod-I in Locomotion, Safety Awarenes s, Balance, Social Cognition, Transfers Control, Sphincter Control, Self-Care, Communication, and End urance; and she had good Locomotion, Safety Awareness, Balance, Social Cognition, Transfers Control, Sphincter Control, Self-Care, Communication, and Endurance.Currently, she has deficits of Locomotion, Balance, Safety Awareness, Transfers Control, Self-Care, Endurance, and Communication.Pt. is now ref erred to [facility] for acute in-patient rehabilitation in order to maximize p atient's functional independence in activities of daily living, strength, ROM, and mobility.- Rehab G oal Patient has realistic goal of being discharged at assistance level 6-Danielle to reside at Home with Fam adriana/Relatives. MDM/PLAN: - Physical Therapy Gait dysfunction - to improve, our physical therapists will perform initial evaluation of pt's statu s upon admission and devise an individualized program for Gait Training, and Wheel Chair mobility Inability to transfer - to improve, our physical therapists will perform initial evaluation of pt's status upon admission and devise an individualized program for Bed mobility Need for home safety evaluation - to improve, our physical therapists will perform initial evaluatio n of pt's status upon admission and devise an individualized program for Home Evaluation Need in caregiver upon discharge - to improve, our physical therapists will perform initial evaluati on of pt's status upon admission and devise an individualized program for Caregiver Training New precaution - to improve, our physical therapists will perform initial evaluation of pt's status upon admission and devise an individualized program for Patient precaution education Poor balance - to improve, our physical therapists will perform initial evaluation of pt's status up on admission and devise an individualized program for Balance Training Poor endurance - to improve, our physical therapists will perform initial evaluation of pt's status upon admission and devise an individualized program for Endurance Training Weakness - to improve, our physical therapists will perform initial evaluation of pt's status upon a dmission and devise an individualized program for Aquatic Therapy, Neuromuscular Reeducation, and Str engthening Achieving independence - to improve, our physical therapists will perform initial evaluation of pt's status upon admission and devise an individualized program for Community Reintegration Activities - Occupational Therapy ADL deficits - to improve, our occupation therapists will perform initial evaluation of pt's status upon admission and devise an individualized program for Bathing, Bed mobility, Community Reintegratio n, Cooking, Dressing, Eating, Fine Motor Skills, Grooming, Homemaking, Kitchen Mobility, Laundry, Pat ient Education, Safety Awareness, Splinting - Positioning, Transfers(Toilet, Tub, Shower), and Wheel Chair Management Need for resident care spec - to improve, our occupation therapists will perform initial evaluation of pt's status upon admission and devise an individualized program for Caregiver Training Weakness - to improve, our occupation therapists will perform initial evaluation of pt's status upon admission and devise an individualized program for Aquatic Therapy, Balance, Endurance, UE ROM, and UE strengthening - Other See attached MAR (Medication Administration Record) Oma Glenn.pdf See attached MAR (Medication Administration Record) - Diet Type Continue Regular - Diet - Liquid Texture Continue Regular - Tube Feed Continue N/A - Bladder care per protocol - Fall Precaution Bed alarm TABS alarm Wheel chair alarm - Skin care per protocol - Diet - Solid Texture Continue Regular - Shower allowing shower for Dementia, TBI, Stroke, or others FUNCTIONAL STATUS: UPDATED AT WEEKLY TEAM CONFERENCE - Bladder Same accident frequency: 7-Ind - No accidents in the past 7 days - Bowel Same accident frequency: 7-Ind - No accidents in the past 7 days - Walking Same score based on distance walked: 0(N/A) - Wheelchair Same score based on distance traveled: 0(N/A) Same score based on distance traveled: 3(>=150ft) FUNCTIONAL STATUS: - Self-Care A. Eating Danielle B. Grooming Paresh C. Bathing modA D. Dressing - Upper modA E. Dressing - Lower Paresh F. Toileting modA - Sphincter Control G. Bladder control modA H. Bowel control Paresh - Transfers Control I. Bed/Chair/Wheelchair maxA J. Toilet maxA K. Tub/Shower maxA - Locomotion L. Walk/Wheelchair (B) maxA M. Stairs ADNO - Communication N. Comprehension (B) Paresh O. Expression (B) Paresh - Social Cognition P. Social Interaction sup Q. Problem Solving sup R. Memory sup - Endurance Good - Balance Good - Safety Awareness Good QI SCORES: - Self-Care A. Eating 05-Setup or clean-up assistance B. Oral hygiene 05-Setup or clean-up assistance C. Toileting hygiene 03-Partial/moderate assistance E. Shower/bathe self 02-Substantial/maximal assistance F. Upper body dressing 03-Partial/moderate assistance G. Lower body dressing 02-Substantial/maximal assistance H. Putting on/taking off footwear 01-Dependent - Mobility A. Roll left and right 03-Partial/moderate assistance B. Sit to lying 02-Substantial/maximal assistance C. Lying to sitting on side of bed 02-Substantial/maximal assistance D. Sit to stand 02-Substantial/maximal assistance E. Chair/xfr-xe-kguen transfer 02-Substantial/maximal assistance F. Toilet transfer 02-Substantial/maximal assistance G. Car transfer 88-Not attempted due to medical condition or safety concerns I. Walk 10 feet 88-Not attempted due to medical condition or safety concerns J. Walk 50 feet with two turns 88-Not attempted due to medical condition or safety concerns K. Walk 150 feet 88-Not attempted due to medical condition or safety concerns L. Walking 10 feet on uneven surfaces 88-Not attempted due to medical condition or safety concerns M. 1 step (curb) 88-Not attempted due to medical condition or safety concerns N. 4 steps 88-Not attempted due to medical condition or safety concerns O. 12 steps 88-Not attempted due to medical condition or safety concerns P. Picking up object 88-Not attempted due to medical condition or safety concerns R. Wheel 50 feet with two turns 02-Substantial/maximal assistance S. Wheel 150 feet 02-Substantial/maximal assistance - Bladder and Bowel Bladder continence 0-Always continent Bowel continence 0-Always continent - Endurance Poor - Balance Poor - Safety Awareness Fair CURRENT FUNC. DEFICITS: Self-Care, Mobility, Endurance, Balance, and Safety Awareness SIGNATURE PANEL: (SUPPLIER RELATIONSHIP DIRECTOR)
--- NOTE | 2019-03-31 01:28 | PN ---
Date of Progress Note: 03/30/2019 Subjective: Patient was seen this morning for followup. No new complaints or problems reported by patient. Objective: HEENT: Unremarkable. Lungs: Clear to auscultation. Heart: Sounds normal. Abdomen: Soft. Bowel sounds normal. No guarding, rigidity, tenderness, or distention. Extremities: No leg edema. Laboratory Data: White count 7.2, hemoglobin 11.7. Sodium 144, potassium 3.9, chloride 110, bicarb 26, BUN 19, creatinine 0.44, glucose 124. Impression: 1. Hypertension. 2. Insomnia. 3. Leg edema. 4. Stroke with left-sided hemiparesis. Plan: Continue current medication. Continue current antihypertensive medication. DVT prophylaxis. Physical therapy to be provided by Dr. Rios. I will see her tomorrow for followup. JULIO/MODL Voice ID: [id number] Report ID: [id number] MTDD
[2019-03-31] MEDS: LOSARTAN POTASSIUM 50 MG TABLET PO SCH (07:56)
[2019-03-31] MEDS: DULOXETINE 20 MG CAP PO SCH (07:56)
[2019-03-31] MEDS: TRIAMCINOLONE 0.1% CREAM 15GM TOP SCH ×2 (07:57→20:34)
[2019-03-31] MEDS: CLOTRIMAZOLE 1% CREAM 15 GM TOP SCH ×2 (07:57→20:33)
--- NOTE | 2019-03-31 10:04 | P.RH.PN ---
Estimated Length of Stay: 27 Expected Discharge Date: 04/05/19 Discharge Disposition Plan: Home Family Support: Yes [facility] Goal: Mobility, Transfers, Self Care Vital Signs: Last Vital Signs Temp 98 F 03/31/19 07:28 Pulse 82 03/31/19 07:28 Resp 16 03/31/19 07:28 BP 153/77 H 03/31/19 07:28 Pulse Ox 97 03/31/19 07:28 Laboratory: Laboratory Last Values WBC 7.2 K/uL (4.3-10.9) 03/30/19 05:50 RBC 3.79 M/uL (3.86-4.86) L 03/30/19 05:50 Hgb 11.7 g/dL (12.0-15.0) L 03/30/19 05:50 Hct 34.9 % (36.0-45.0) L 03/30/19 05:50 MCV 92.1 fL (80-100) 03/30/19 05:50 MCH 30.9 pg (27.0-35.0) 03/30/19 05:50 MCHC 33.5 g/dL (32.0-36.0) 03/30/19 05:50 RDW 14.1 % (12.1-15.2) 03/30/19 05:50 Plt Count 272 K/uL (152-406) D 03/30/19 05:50 MPV 9.3 fL (7.6-11.3) 03/30/19 05:50 Neutrophils % 52.6 % (41.7-73.7) 03/30/19 05:50 Lymphocytes % 33.8 % (15.3-44.8) 03/30/19 05:50 Monocytes % 10.6 % (3.3-12.3) 03/30/19 05:50 Eosinophils % 2.6 % (0-4.4) 03/30/19 05:50 Basophils % 0.4 % (0-1.3) 03/30/19 05:50 Absolute Neutrophils 3.8 K/uL (1.8-8.0) 03/30/19 05:50 Segmented Neutrophils 73 % (40-80) 03/11/19 05:52 Absolute Lymphocytes 2.4 K/uL (0.7-4.9) 03/30/19 05:50 Lymphocytes 15 % (15-42) 03/11/19 05:52 Monocytes 11 % (0-10) H 03/11/19 05:52 Absolute Monocytes 0.8 K/uL (0.1-1.3) 03/30/19 05:50 Eosinophils 1 % (0-3) 03/11/19 05:52 Absolute Eosinophils 0.2 K/uL (0-0.5) 03/30/19 05:50 Absolute Basophils 0.0 K/uL (0-0.5) 03/30/19 05:50 Morphology Comment Not seen (NOT SEEN) 03/11/19 05:52 Sodium 144 mmol/L (136-145) 03/30/19 05:50 Potassium 3.9 mmol/L (3.5-5.1) 03/30/19 05:50 Chloride 110 mmol/L (98-107) H 03/30/19 05:50 Carbon Dioxide 26 mmol/L (21-32) 03/30/19 05:50 BUN 19 mg/dL (7-18) H 03/30/19 05:50 Creatinine 0.44 mg/dL (0.55-1.3) L 03/30/19 05:50 Estimated GFR > 90 mL/min (=/>90) 03/30/19 05:50 Glucose 124 mg/dL (74-106) H 03/30/19 05:50 Calcium 8.5 mg/dL (8.5-10.1) 03/30/19 05:50 Magnesium 2.4 mg/dL (1.8-2.4) 03/30/19 05:50 Albumin 2.9 g/dL (3.4-5.0) L 03/30/19 05:50 Prealbumin 18.8 mg/dL (20-40) L 03/30/19 05:50 Urine Color Yellow 03/11/19 00:40 Urine Appearance Clear 03/11/19 00:40 Urine pH 5.0 (5.0-7.0) 03/11/19 00:40 Ur Specific Williamson 1.020 (1.005-1.030) 03/11/19 00:40 Urine Ketones Negative (NEG) 03/11/19 00:40 Urine Blood Negative (NEG) 03/11/19 00:40 Urine Nitrite Negative (NEG) 03/11/19 00:40 Urine Bilirubin Negative (NEG) 03/11/19 00:40 Urine Urobilinogen 0.2 mg/dL (0.2-1.0) 03/11/19 00:40 Ur Leukocyte Esterase 1+ (NEG) H 03/11/19 00:40 Urine RBC <5 /HPF (NONE SEEN) 03/11/19 00:40 Urine WBC 10-20 /HPF (<5) H 03/11/19 00:40 Ur Squamous Epith Cells 5-10 /HPF (NONE SEEN) H 03/11/19 00:40 Calcium Oxalate Crystal Few (NONE SEEN) 03/11/19 00:40 Urine Bacteria 20-50 /HPF (<20) H 03/11/19 00:40 Urine Mucus 3+ /HPF (NONE SEEN) H 03/11/19 00:40 Urine Culture Reflexed Not needed 03/11/19 00:40 Urine Glucose Negative (NEG) 03/11/19 00:40 Urine Total Protein Negative (NEG) 03/11/19 00:40 Weight: 122 lb 12.8 oz Wound Present: No Closed Surgical Incision Present: No Negative Pressure Wound Therapy Present: No Physician Update: Labs reviewed and are stable. Walking 250' with contact guard assistance. Able to stand unsupported. Medical Issues: Patient is incontinent daily with bladder and always continent with bowel. Functional Improvement: pt has demonstrated improved functional performance throughout the week. She is able to consistantly ambulate 150' at this time with CG. pt is improving her balance and stability and is able to at times maintain standing balance without the need for physical assist. pt is approaching the ability to perform functional activity with SBA. Speech Therapy Update: Min (trace) cognitive impairments persist characterized by decreased auditory comprehension and recall for complex information. When patient becomes anxious or overwhelmed she shuts down and tells herself that she cannot perform. Patient requires min verbal cues for generation of solutions to problem solving scenarios. Summary: Patient's care plan and mcc goals have been reviewed and revised as necessary. Please see the Rehabilitation Signature page for all necessary signatures.
--- NOTE | 2019-03-31 14:00 | FAST ---
ENCOUNTER DATE AND TIME: 03/31/2019 08:00 (ACCESS RN) NAME GLENN WALKER DATE OF : 1955 DATE OF ADMISSION: 03/11/2019 14:31 (ACCESS RN) PHONE: AGE: 63 N# [id number] GENDER: Female ENCOUNTER PHYSICIAN: Dr. Sawyer Rios M.D. 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 - Stroke 01 - Other Stroke (01.9) Intracranial Hemorrhage. Right [place] Infarct. EATING: Not assessed/no information CODE: - ORAL HYGIENE: Not assessed/no information CODE: - TOILETING HYGIENE: TOILETING HYGIENE - STEP 1: Does the patient complete the activity by him/herself with no assistance (physical, verbal/nonverbal cueing, setup/clean-up)? No. TOILETING HYGIENE - STEP 2: Does the patient need only setup/clean-up assistance from one helper? No. TOILETING HYGIENE - STEP 3: Does the patient need only verbal/nonverbal cueing or touching/steadying/contact guard assistance fro m one helper? Yes. 1. [id number] ADMISSION PERFORMANCE: Supervision or touching assistance CODE: 04 BATHING: SHOWER/BATHE SELF - STEP 1: Does the patient complete the activity by him/herself with no assistance (physical, verbal/nonverbal cueing, setup/clean-up)? No. SHOWER/BATHE SELF - STEP 2: Does the patient need only setup/clean-up assistance from one helper? No. SHOWER/BATHE SELF - STEP 3: Does the patient need only verbal/nonverbal cueing or touching/steadying/contact guard assistance fro m one helper? Yes. 1. [id number] ADMISSION PERFORMANCE: Supervision or touching assistance CODE: 04 DRESSING - UPPER BODY: DRESSING - UPPER BODY - STEP 1: Does the patient complete the activity by him/herself with no assistance (physical, verbal/nonverbal cueing, setup/clean-up)? No. DRESSING - UPPER BODY - STEP 2: Does the patient need only setup/clean-up assistance from one helper? No. DRESSING - UPPER BODY - STEP 3: Does the patient need only verbal/nonverbal cueing or touching/steadying/contact guard assistance fro m one helper? Yes. 1. [id number] ADMISSION PERFORMANCE: Supervision or touching assistance CODE: 04 DRESSING - LOWER BODY: DRESSING - LOWER BODY - STEP 1: Does the patient complete the activity by him/herself with no assistance (physical, verbal/nonverbal cueing, setup/clean-up)? No. DRESSING - LOWER BODY - STEP 2: Does the patient need only setup/clean-up assistance from one helper? No. DRESSING - LOWER BODY - STEP 3: Does the patient need only verbal/nonverbal cueing or touching/steadying/contact guard assistance fro m one helper? No. DRESSING - LOWER BODY - STEP 4: Does the patient need physical assistance - for example lifting or trunk support from one helper - wi th the helper providing less than half of the effort? Yes. 1. ADMISSION PERFORMANCE: Partial/moderate assistance CODE: 03 PUTTING ON/TAKING OFF FOOTWEAR: FOOTWEAR - STEP 1: Does the patient complete the activity by him/herself with no assistance (physical, verbal/nonverbal cueing, setup/clean-up)? No. FOOTWEAR - STEP 2: Does the patient need only setup/clean-up assistance from one helper? No. FOOTWEAR - STEP 3: Does the patient need only verbal/nonverbal cueing or touching/steadying/contact guard assistance fro m one helper? Yes. 1. ADMISSION PERFORMANCE: Supervision or touching assistance CODE: 04 DOES THE PATIENT USE A WHEELCHAIR/SCOOTER? CODE: EXPR INDICATE THE TYPE OF WHEELCHAIR/SCOOTER USED: CODE: EXPR INDICATE THE TYPE OF WHEELCHAIR/SCOOTER USED: CODE: EXPR BLADDER AND BOWEL: CODE: EXPR CODE: EXPR SIGNATURE PANEL: The following modified sections: 1. [id number] Admission Performance, 1. [id number] Admission Performance, 1. AD1620b Admission Performance, 1. [id number] Admission Performance, 1. NA8972i Admission Performance were [electronically] signed by Violet Ott OT on WedMar 31 2019 13:59:20 GMT-0600 ([place] tra Standard Time)
--- NOTE | 2019-03-31 15:20 | PN ---
Date of Progress Note: 03/31/2019 Subjective: Patient was seen this morning for followup. No new complaints or problems reported by gianna alberto. Objective: HEENT: Unremarkable. Lungs: Clear to auscultation. Heart: Sounds normal. Abdomen: Soft. Bowel sounds normal. No guarding, rigidity, tenderness, or distention. Extremities: No leg edema. Patient's rash on both lower extremity has almost completely healed and leg swelling also has almost completely resolved. Impression: 1.Hypertension. 2.Stroke with left-sided hemiparesis. 3.Insomnia. Plan: We will continue current medications. Continue current antihypertension medication. DVT prop hylaxis. Rehab physician, Dr. Rios to continue to provide rehab therapy per his recommendation. JULIO/MODL Voice ID: [id number] Report ID: [id number]
[2019-03-31] MEDS: ENOXAPARIN 40 MG/0.4 ML SQ SCH (17:11)
[2019-03-31] MEDS: ALPRAZOLAM 0.5 MG TABLET PO SCH (20:31)
[2019-03-31] MEDS: MELATONIN 3 MG TABLET PO SCH (20:31)
[2019-03-31] MEDS: MAGNESIUM OXIDE 400 MG TAB PO SCH (20:31)
--- NOTE | 2019-04-01 02:30 | FAST ---
SHIFT START DATE/TIME: 03/31/2019 19:00 (RESEARCH ENVIRONMENTAL SCIENTIST) SHIFT END DATE/TIME: 04/01/2019 07:00 (RESEARCH ENVIRONMENTAL SCIENTIST) NAME GLENN WALKER DATE OF : 1955 DATE OF ADMISSION: 03/11/2019 14:31 (RESEARCH ENVIRONMENTAL SCIENTIST) PHONE: AGE: 63 N# [id number] GENDER: Female ENCOUNTER PHYSICIAN: Dr. Sawyer Rios M.D. 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 - Stroke 01 - Other Stroke (01.9) Intracranial Hemorrhage. Right [place] Infarct. EATING: Not assessed/no information CODE: - ORAL HYGIENE: Patient refused ORAL HYGIENE - STEP 1: Does the patient complete the activity by him/herself with no assistance (physical, verbal/nonverbal cueing, setup/clean-up)? No. ORAL HYGIENE - STEP 2: Does the patient need only setup/clean-up assistance from one helper? No. ORAL HYGIENE - STEP 3: Does the patient need only verbal/nonverbal cueing or touching/steadying/contact guard assistance fro m one helper? No. ORAL HYGIENE - STEP 4: Does the patient need physical assistance - for example lifting or trunk support from one helper - wi th the helper providing less than half of the effort? Yes. 1. [id number] ADMISSION PERFORMANCE: Partial/moderate assistance CODE: 03 TOILETING HYGIENE: TOILETING HYGIENE - STEP 1: Does the patient complete the activity by him/herself with no assistance (physical, verbal/nonverbal cueing, setup/clean-up)? No. TOILETING HYGIENE - STEP 2: Does the patient need only setup/clean-up assistance from one helper? No. TOILETING HYGIENE - STEP 3: Does the patient need only verbal/nonverbal cueing or touching/steadying/contact guard assistance fro m one helper? No. TOILETING HYGIENE - STEP 4: Does the patient need physical assistance - for example lifting or trunk support from one helper - wi th the helper providing less than half of the effort? Yes. 1. [id number] ADMISSION PERFORMANCE: Partial/moderate assistance CODE: 03 BATHING: Not assessed/no information CODE: - DRESSING - UPPER BODY: Not assessed/no information CODE: - DRESSING - LOWER BODY: Not assessed/no information CODE: - PUTTING ON/TAKING OFF FOOTWEAR: Not assessed/no information CODE: - ROLL LEFT AND RIGHT: ROLL LEFT AND RIGHT - STEP 1: Does the patient complete the activity by him/herself with no assistance (physical, verbal/nonverbal cueing, setup/clean-up)? No. ROLL LEFT AND RIGHT - STEP 2: Does the patient need only setup/clean-up assistance from one helper? No. ROLL LEFT AND RIGHT - STEP 3: Does the patient need only verbal/nonverbal cueing or touching/steadying/contact guard assistance fro m one helper? No. ROLL LEFT AND RIGHT - STEP 4: Does the patient need physical assistance - for example lifting or trunk support from one helper - wi th the helper providing less than half of the effort? Yes. 1. [id number] ADMISSION PERFORMANCE: Partial/moderate assistance CODE: 03 SIT TO LYING: SIT TO LYING - STEP 1: Does the patient complete the activity by him/herself with no assistance (physical, verbal/nonverbal cueing, setup/clean-up)? No. SIT TO LYING - STEP 2: Does the patient need only setup/clean-up assistance from one helper? No. SIT TO LYING - STEP 3: Does the patient need only verbal/nonverbal cueing or touching/steadying/contact guard assistance fro m one helper? No. SIT TO LYING - STEP 4: Does the patient need physical assistance - for example lifting or trunk support from one helper - wi th the helper providing less than half of the effort? No. SIT TO LYING - STEP 5: Does the patient need physical assistance - for example lifting or trunk support from one helper - wi th the helper providing more than half of the effort? Yes. 1. [id number] ADMISSION PERFORMANCE: Substantial/maximal assistance CODE: 02 LYING TO SITTING: LYING TO SITTING ON SIDE OF BED - STEP 1: Does the patient complete the activity by him/herself with no assistance (physical, verbal/nonverbal cueing, setup/clean-up)? No. LYING TO SITTING ON SIDE OF BED - STEP 2: Does the patient need only setup/clean-up assistance from one helper? No. LYING TO SITTING ON SIDE OF BED - STEP 3: Does the patient need only verbal/nonverbal cueing or touching/steadying/contact guard assistance fro m one helper? No. LYING TO SITTING ON SIDE OF BED - STEP 4: Does the patient need physical assistance - for example lifting or trunk support from one helper - wi th the helper providing less than half of the effort? No. LYING TO SITTING ON SIDE OF BED - STEP 5: Does the patient need physical assistance - for example lifting or trunk support from one helper - wi th the helper providing more than half of the effort? Yes. 1. [id number] ADMISSION PERFORMANCE: Substantial/maximal assistance CODE: 02 SIT TO STAND: SIT TO STAND - STEP 1: Does the patient complete the activity by him/herself with no assistance (physical, verbal/nonverbal cueing, setup/clean-up)? No. SIT TO STAND - STEP 2: Does the patient need only setup/clean-up assistance from one helper? No. SIT TO STAND - STEP 3: Does the patient need only verbal/nonverbal cueing or touching/steadying/contact guard assistance fro m one helper? No. SIT TO STAND - STEP 4: Does the patient need physical assistance - for example lifting or trunk support from one helper - wi th the helper providing less than half of the effort? No. SIT TO STAND - STEP 5: Does the patient need physical assistance - for example lifting or trunk support from one helper - wi th the helper providing more than half of the effort? Yes. 1. [id number] ADMISSION PERFORMANCE: Substantial/maximal assistance CODE: 02 TRANSFERS: BED, CHAIR: CHAIR/[id number] TRANSFER - STEP 1: Does the patient complete the activity by him/herself with no assistance (physical, verbal/nonverbal cueing, setup/clean-up)? No. CHAIR/[id number] TRANSFER - STEP 2: Does the patient need only setup/clean-up assistance from one helper? No. CHAIR/[id number] TRANSFER - STEP 3: Does the patient need only verbal/nonverbal cueing or touching/steadying/contact guard assistance fro m one helper? No. CHAIR/[id number] TRANSFER - STEP 4: Does the patient need physical assistance - for example lifting or trunk support from one helper - wi th the helper providing less than half of the effort? No. CHAIR/[id number] TRANSFER - STEP 5: Does the patient need physical assistance - for example lifting or trunk support from one helper - wi th the helper providing more than half of the effort? Yes. 1. [id number] ADMISSION PERFORMANCE: Substantial/maximal assistance CODE: 02 TRANSFER TOILET: TOILET TRANSFER - STEP 1: Does the patient complete the activity by him/herself with no assistance (physical, verbal/nonverbal cueing, setup/clean-up)? No. TOILET TRANSFER - STEP 2: Does the patient need only setup/clean-up assistance from one helper? No. TOILET TRANSFER - STEP 3: Does the patient need only verbal/nonverbal cueing or touching/steadying/contact guard assistance fro m one helper? No. TOILET TRANSFER - STEP 4: Does the patient need physical assistance - for example lifting or trunk support from one helper - wi th the helper providing less than half of the effort? Yes. 1. [id number] ADMISSION PERFORMANCE: Partial/moderate assistance CODE: 03 TRANSFERS: CAR: Not assessed/no information CODE: - WALK 10 FEET: Not assessed/no information CODE: - 1 STEP (CURB): Not assessed/no information CODE: - PICKING UP OBJECT: Not assessed/no information CODE: - DOES THE PATIENT USE A WHEELCHAIR/SCOOTER? CODE: EXPR WHEEL 50 FEET WITH TWO TURNS: Not assessed/no information CODE: - INDICATE THE TYPE OF WHEELCHAIR/SCOOTER USED: CODE: EXPR WHEEL 150 FEET: Not assessed/no information CODE: - INDICATE THE TYPE OF WHEELCHAIR/SCOOTER USED: CODE: EXPR BLADDER AND BOWEL: H350. BLADDER CONTINENCE (3-DAY ASSESSMENT PERIOD): Always continent (no documented incontinence) CODE: 0 H400. BOWEL CONTINENCE (3-DAY ASSESSMENT PERIOD): Always continent CODE: 0
[2019-04-01] MEDS: LOSARTAN POTASSIUM 50 MG TABLET PO SCH (07:53)
[2019-04-01] MEDS: DULOXETINE 20 MG CAP PO SCH (07:53)
[2019-04-01] MEDS: TRIAMCINOLONE 0.1% CREAM 15GM TOP SCH ×2 (07:54→19:51)
[2019-04-01] MEDS: CLOTRIMAZOLE 1% CREAM 15 GM TOP SCH ×2 (07:55→19:51)
--- NOTE | 2019-04-01 10:21 | PN ---
Date of Progress Note: 04/01/2019 Subjective: Patient was seen this morning for followup. No new complaints, problems reported by shoshana gamez. Objective: Vital Signs: Reviewed. HEENT: Unremarkable. Lungs: Clear to auscultation. Heart: Sounds normal. Abdomen: Soft. Bowel sounds normal. No guarding, rigidity, tenderness, or distention. Extremities: Trace edema of dorsum foot noted. Impression: 1.Leg edema. 2.Hypertension. 3.Stroke with left-sided hemiparesis. 4.Insomnia. Plan: We will continue current antihypertensive medication. Continue DVT prophylaxis and physical t herapy under guidance of Dr. Rios. No need for any further intervention for leg edema. Patient had a negative venous Doppler done and she is on DVT prophylaxis. She was encouraged to move her fee t and legs as explained to her today as this is likely dependent edema. JULIO/MODL Voice ID: [id number] Report ID: [id number]
[2019-04-01] MEDS: ENOXAPARIN 40 MG/0.4 ML SQ SCH (16:33)
--- NOTE | 2019-04-01 17:41 | FAST ---
ENCOUNTER DATE AND TIME: 04/01/2019 08:00 (OPTOMETRIC AIDE) NAME GLENN WALKER DATE OF : 1955 DATE OF ADMISSION: 03/11/2019 14:31 (OPTOMETRIC AIDE) PHONE: AGE: 63 N# [id number] GENDER: Female ENCOUNTER PHYSICIAN: Dr. Sawyer Rios M.D. 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 - Stroke 01 - Other Stroke (01.9) Intracranial Hemorrhage. Right [place] Infarct. EATING: Not assessed/no information CODE: - ORAL HYGIENE: Not assessed/no information CODE: - TOILETING HYGIENE: TOILETING HYGIENE - STEP 1: Does the patient complete the activity by him/herself with no assistance (physical, verbal/nonverbal cueing, setup/clean-up)? No. TOILETING HYGIENE - STEP 2: Does the patient need only setup/clean-up assistance from one helper? No. TOILETING HYGIENE - STEP 3: Does the patient need only verbal/nonverbal cueing or touching/steadying/contact guard assistance fro m one helper? Yes. 1. [id number] ADMISSION PERFORMANCE: Supervision or touching assistance CODE: 04 BATHING: Not assessed/no information CODE: - DRESSING - UPPER BODY: Not assessed/no information CODE: - DRESSING - LOWER BODY: Not assessed/no information CODE: - PUTTING ON/TAKING OFF FOOTWEAR: Not assessed/no information CODE: - DOES THE PATIENT USE A WHEELCHAIR/SCOOTER? CODE: EXPR INDICATE THE TYPE OF WHEELCHAIR/SCOOTER USED: CODE: EXPR INDICATE THE TYPE OF WHEELCHAIR/SCOOTER USED: CODE: EXPR BLADDER AND BOWEL: CODE: EXPR CODE: EXPR SIGNATURE PANEL: The following modified sections: 1. [id number] Admission Performance were [electronically] signed by All keith Piña OT on Sat Apr 01 2019 17:40:27 GMT-0600 (Central Standard Time)
[2019-04-01] MEDS: ALPRAZOLAM 0.5 MG TABLET PO SCH (19:49)
[2019-04-01] MEDS: MELATONIN 3 MG TABLET PO SCH (19:49)
[2019-04-01] MEDS: DOCUSATE NA/SENNA CONC 1 TAB PO PRN (19:49)
[2019-04-01] MEDS: MAGNESIUM OXIDE 400 MG TAB PO SCH (19:49)
[2019-04-02] MEDS: DULOXETINE 20 MG CAP PO SCH (07:47)
[2019-04-02] MEDS: LOSARTAN POTASSIUM 50 MG TABLET PO SCH (07:47)
[2019-04-02] MEDS: CLOTRIMAZOLE 1% CREAM 15 GM TOP SCH ×2 (07:48→19:38)
[2019-04-02] MEDS: TRIAMCINOLONE 0.1% CREAM 15GM TOP SCH ×2 (07:48→19:37)
--- NOTE | 2019-04-02 12:19 | PN ---
Date of Progress Note: 04/02/2019 Subjective: Patient was seen this morning for followup. No new complaints, problems reported by her . She was sitting in wheelchair in the dining room. Her daughter was with her. No complaints, prob lems reported by her. Objective: Vital Signs: Reviewed. HEENT: Unremarkable. Lungs: Clear to auscultation. Heart: Sounds normal. Abdomen: Soft. Bowel sounds normal. No guarding, rigidity, tenderness, distention. Extremities: No leg edema. Impression: 1.Hypertension. 2.Insomnia. 3.Stroke with left-sided hemiparesis. Plan: We will continue current antihypertensive medication, DVT prophylaxis, and continue current in somnia treatment. Patient was encouraged to move her legs as taught yesterday to help with her swell ing of her feet and she started doing such exercises as taught yesterday. JULIO/MODL Voice ID: [id number] Report ID: [id number]
[2019-04-02] MEDS: ENOXAPARIN 40 MG/0.4 ML SQ SCH (16:14)
[2019-04-02] MEDS: ALPRAZOLAM 0.5 MG TABLET PO SCH (19:34)
[2019-04-02] MEDS: DOCUSATE NA/SENNA CONC 1 TAB PO PRN (19:34)
[2019-04-02] MEDS: MELATONIN 3 MG TABLET PO SCH (19:34)
[2019-04-02] MEDS: MAGNESIUM OXIDE 400 MG TAB PO SCH (19:35)
[2019-04-03] MEDS: DULOXETINE 20 MG CAP PO SCH (07:53)
[2019-04-03] MEDS: LOSARTAN POTASSIUM 50 MG TABLET PO SCH (07:54)
[2019-04-03] MEDS: TRIAMCINOLONE 0.1% CREAM 15GM TOP SCH ×2 (07:54→20:06)
[2019-04-03] MEDS: CLOTRIMAZOLE 1% CREAM 15 GM TOP SCH ×2 (07:55→20:00)
[2019-04-03] MEDS: ENOXAPARIN 40 MG/0.4 ML SQ SCH (16:02)
[2019-04-03] MEDS: ALPRAZOLAM 0.5 MG TABLET PO SCH (20:05)
[2019-04-03] MEDS: DOCUSATE NA/SENNA CONC 1 TAB PO PRN (20:05)
[2019-04-03] MEDS: MAGNESIUM OXIDE 400 MG TAB PO SCH (20:05)
[2019-04-03] MEDS: MELATONIN 3 MG TABLET PO SCH (20:06)
--- NOTE | 2019-04-03 20:08 | PN ---
Date of Progress Note: 04/03/2019 Subjective: Patient was seen this morning for followup. No new complaints or problems reported by h er. Sitting in wheelchair. Denied any complaints. Slept well last night. Objective: HEENT: Unremarkable. LUNGS: Clear to auscultation. HEART: Heart sounds normal. ABDOMEN: Soft, bowel sounds normal. No guarding, rigidity, tenderness or distention. EXTREMITIES: No leg edema. Impression: 1.Stroke with left-sided hemiparesis. 2.Hypertension. 3.Primary insomnia. Plan: We will continue current medication. Continue current Lovenox, antihypertensive medication. Physical therapy will be provided under guidance of Dr. Rios. Patient reported that yesterday chelsie logan did walk a couple of times outside in the hallway with the help of her family member using a walker . She is improving very well with physical therapy and hopefully she will be able to go home in next few days when rehab decides to discharge her medically, she is doing very well. JULIO/MODL Voice ID: [id number] Report ID: [id number]
[2019-04-04] MEDS: CLOTRIMAZOLE 1% CREAM 15 GM TOP SCH ×2 (08:00→20:00)
[2019-04-04] MEDS: DULOXETINE 20 MG CAP PO SCH (08:25)
[2019-04-04] MEDS: LOSARTAN POTASSIUM 50 MG TABLET PO SCH (08:25)
[2019-04-04] MEDS: TRIAMCINOLONE 0.1% CREAM 15GM TOP SCH ×2 (08:26→20:13)
[2019-04-04] MEDS: ENOXAPARIN 40 MG/0.4 ML SQ SCH (16:07)
--- NOTE | 2019-04-04 18:42 | R.PN ---
ENCOUNTER DATE AND TIME: 04/04/2019 18:38 (HOGSHEAD INSPECTOR) NAME GLENN WALKER DATE OF : 1955 DATE OF ADMISSION: 03/11/2019 14:31 (HOGSHEAD INSPECTOR) Brain MassIntracranial HemorrhageRight [place] InfarctCHIEF COMPLAINT: Left sided weakness and debility SUBJECTIVE: Pt denied any depression. Pt denied any Shortness of Breath. She denies headache or nausea. She is making better progress with physical and occupational therapy. Her ADLs were performed with minimum assistance. Ambulated 550' with contact guard assistance using a rolling walker. On Cipro for UTI. Hgb 12.3, WBC 6.9, prealbumin 19.5. She has a largely resolved mildly pruritic flat non-daisha petechial rash on the right medial leg gary suring about 5" by 3". The rash had the appearance of contact dermatitis. Treated with topical steroi ds and continues to improve. VITAL SIGNS Temperature: 97.8 F SBP/DBP: 156/91 Pulse: 85 Resp: 16 MEDICATION ALLERGIES: No Known Drug Allergies (NKDA) ENVIRONMENTAL ALLERGIES: None Known - Substance Allergies None Known - Other Allergies None Known NURSING: - Shower allowing shower - Bladder care per protocol - Skin care per protocol PRECAUTIONS: - Fall Precaution Bed alarm TABS alarm Wheel chair alarm ACTIVITIES OOB only with supervision THERAPIES: - Occupational Therapy Cognitive Retraining. Visual Perceptual Training. - Dietary and Nutrition Adequate Nutrition. Nutritional Education. Nutritional Supplements. - Speech Therapy Cognitive Training. Expressive Language Skills. Memory Strategies. Receptive Language Skills. Speech Intelligibility Training. PHYSICAL EXAM - Gen Alert and awake Lying in bed No apparent distress Oriented to: person, time, and place - Skin No breakdown Normacephalic Scalp surgical site intact - Eyes No abnormalities - ENMT No abnormalities - Neck No abnormalities - CVS RRR - Chest No abnormalities - Resp Clear to auscultation - Abd + bowel sounds - GI Soft Deferred - No abnormalities - Ext no edema - MSK 3-4+/5 weakness in both lower extremities. - Neuro Diffuse weakness, incoordination and unsteady gait - Psych Moderate depression. ASSESSMENT: Pt. is a 63 yo Right-handed female.On 01/25/2019 she was admitted to [facility] with diagnosis Brain Mass.Her impairment category is Brain Dysfunction 02 - Non-trau matic Brain Dysfunction (02.1).Pre-morbidly, Pt. was independent/mod-I in Locomotion, Safety Awarenes s, Balance, Social Cognition, Transfers Control, Sphincter Control, Self-Care, Communication, and End urance; and she had good Locomotion, Safety Awareness, Balance, Social Cognition, Transfers Control, Sphincter Control, Self-Care, Communication, and Endurance.Currently, she has deficits of Locomotion, Balance, Safety Awareness, Transfers Control, Self-Care, Endurance, and Communication.Pt. is now ref erred to [facility] for acute in-patient rehabilitation in order to maximize p atient's functional independence in activities of daily living, strength, ROM, and mobility.- Rehab G oal Patient has realistic goal of being discharged at assistance level 6-Danielle to reside at Home with Fam adriana/Relatives. MDM/PLAN: - Physical Therapy Gait dysfunction - to improve, our physical therapists will perform initial evaluation of pt's statu s upon admission and devise an individualized program for Gait Training, and Wheel Chair mobility Inability to transfer - to improve, our physical therapists will perform initial evaluation of pt's status upon admission and devise an individualized program for Bed mobility Need for home safety evaluation - to improve, our physical therapists will perform initial evaluatio n of pt's status upon admission and devise an individualized program for Home Evaluation Need in caregiver upon discharge - to improve, our physical therapists will perform initial evaluati on of pt's status upon admission and devise an individualized program for Caregiver Training New precaution - to improve, our physical therapists will perform initial evaluation of pt's status upon admission and devise an individualized program for Patient precaution education Poor balance - to improve, our physical therapists will perform initial evaluation of pt's status up on admission and devise an individualized program for Balance Training Poor endurance - to improve, our physical therapists will perform initial evaluation of pt's status upon admission and devise an individualized program for Endurance Training Weakness - to improve, our physical therapists will perform initial evaluation of pt's status upon a dmission and devise an individualized program for Aquatic Therapy, Neuromuscular Reeducation, and Str engthening Achieving independence - to improve, our physical therapists will perform initial evaluation of pt's status upon admission and devise an individualized program for Community Reintegration Activities - Occupational Therapy ADL deficits - to improve, our occupation therapists will perform initial evaluation of pt's status upon admission and devise an individualized program for Bathing, Bed mobility, Community Reintegratio n, Cooking, Dressing, Eating, Fine Motor Skills, Grooming, Homemaking, Kitchen Mobility, Laundry, Pat ient Education, Safety Awareness, Splinting - Positioning, Transfers(Toilet, Tub, Shower), and Wheel Chair Management Need for career and guidance counselor - to improve, our occupation therapists will perform initial evaluation of pt's status upon admission and devise an individualized program for Caregiver Training Weakness - to improve, our occupation therapists will perform initial evaluation of pt's status upon admission and devise an individualized program for Aquatic Therapy, Balance, Endurance, UE ROM, and UE strengthening - Other See attached MAR (Medication Administration Record) [email or web address] See attached MAR (Medication Administration Record) - Diet Type Continue Regular - Diet - Liquid Texture Continue Regular - Tube Feed Continue N/A - Bladder care per protocol - Fall Precaution Bed alarm TABS alarm Wheel chair alarm - Skin care per protocol - Diet - Solid Texture Continue Regular - Shower allowing shower for Dementia, TBI, Stroke, or others FUNCTIONAL STATUS: UPDATED AT WEEKLY TEAM CONFERENCE - Bladder Same accident frequency: 7-Ind - No accidents in the past 7 days - Bowel Same accident frequency: 7-Ind - No accidents in the past 7 days - Walking Same score based on distance walked: 0(N/A) - Wheelchair Same score based on distance traveled: 0(N/A) Same score based on distance traveled: 3(>=150ft) FUNCTIONAL STATUS: - Self-Care A. Eating Danielle B. Grooming Paresh C. Bathing modA D. Dressing - Upper modA E. Dressing - Lower Paresh F. Toileting modA - Sphincter Control G. Bladder control modA H. Bowel control Paresh - Transfers Control I. Bed/Chair/Wheelchair maxA J. Toilet maxA K. Tub/Shower maxA - Locomotion L. Walk/Wheelchair (B) maxA M. Stairs ADNO - Communication N. Comprehension (B) Paresh O. Expression (B) Paresh - Social Cognition P. Social Interaction sup Q. Problem Solving sup R. Memory sup - Endurance Good - Balance Good - Safety Awareness Good QI SCORES: - Self-Care A. Eating 05-Setup or clean-up assistance B. Oral hygiene 05-Setup or clean-up assistance C. Toileting hygiene 03-Partial/moderate assistance E. Shower/bathe self 02-Substantial/maximal assistance F. Upper body dressing 03-Partial/moderate assistance G. Lower body dressing 02-Substantial/maximal assistance H. Putting on/taking off footwear 01-Dependent - Mobility A. Roll left and right 03-Partial/moderate assistance B. Sit to lying 02-Substantial/maximal assistance C. Lying to sitting on side of bed 02-Substantial/maximal assistance D. Sit to stand 02-Substantial/maximal assistance E. Chair/hkk-jc-snays transfer 02-Substantial/maximal assistance F. Toilet transfer 02-Substantial/maximal assistance G. Car transfer 88-Not attempted due to medical condition or safety concerns I. Walk 10 feet 88-Not attempted due to medical condition or safety concerns J. Walk 50 feet with two turns 88-Not attempted due to medical condition or safety concerns K. Walk 150 feet 88-Not attempted due to medical condition or safety concerns L. Walking 10 feet on uneven surfaces 88-Not attempted due to medical condition or safety concerns M. 1 step (curb) 88-Not attempted due to medical condition or safety concerns N. 4 steps 88-Not attempted due to medical condition or safety concerns O. 12 steps 88-Not attempted due to medical condition or safety concerns P. Picking up object 88-Not attempted due to medical condition or safety concerns R. Wheel 50 feet with two turns 02-Substantial/maximal assistance S. Wheel 150 feet 02-Substantial/maximal assistance - Bladder and Bowel Bladder continence 0-Always continent Bowel continence 0-Always continent - Endurance Poor - Balance Poor - Safety Awareness Fair CURRENT FUNC. DEFICITS: Self-Care, Mobility, Endurance, Balance, and Safety Awareness SIGNATURE PANEL: (HOGSHEAD INSPECTOR)
[2019-04-04] MEDS: MAGNESIUM OXIDE 400 MG TAB PO SCH (20:14)
[2019-04-04] MEDS: DOCUSATE NA/SENNA CONC 1 TAB PO PRN (20:14)
[2019-04-04] MEDS: MELATONIN 3 MG TABLET PO SCH (21:21)
[2019-04-04] MEDS: ALPRAZOLAM 0.5 MG TABLET PO SCH (21:21)
--- NOTE | 2019-04-04 21:39 | PN ---
Date of Progress Note: 04/04/2019 Subjective: Patient was seen this morning for followup. She was sitting in the wheelchair. Denied any complaints. Objective: Vital Signs: Reviewed. HEENT: Unremarkable. Lungs: Clear to auscultation. Heart: Sounds normal. Abdomen: Soft. Bowel sounds normal. No guarding, rigidity, tenderness, or distention. Extremities: No leg edema. Impression: 1.Hypertension. 2.Stroke with left-sided hemiparesis. 3.Insomnia. Plan: Continue current medications. Continue current antihypertensive medication. DVT prophylaxis. Physical therapy under guidance of Dr. Rios will be provided. Possible discharge this week on Wednesday. JULIO/MODL Voice ID: [id number] Report ID: [id number]
[2019-04-05] MEDS: CLOTRIMAZOLE 1% CREAM 15 GM TOP SCH ×2 (08:00→19:50)
[2019-04-05] MEDS: TRIAMCINOLONE 0.1% CREAM 15GM TOP SCH ×2 (08:00→19:50)
[2019-04-05] MEDS: DULOXETINE 20 MG CAP PO SCH (08:17)
[2019-04-05] MEDS: LOSARTAN POTASSIUM 50 MG TABLET PO SCH (08:17)
--- NOTE | 2019-04-05 14:59 | FAST ---
SHIFT START DATE/TIME: 04/05/2019 07:00 (PBX MECHANIC) SHIFT END DATE/TIME: 04/05/2019 19:00 (PBX MECHANIC) NAME GLENN WALKER DATE OF : 1955 DATE OF ADMISSION: 03/11/2019 14:31 (PBX MECHANIC) PHONE: AGE: 63 N# [id number] GENDER: Female ENCOUNTER PHYSICIAN: Dr. Sawyer Rios M.D. 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 - Stroke 01 - Other Stroke (01.9) Intracranial Hemorrhage. Right [place] Infarct. EATING: EATING - STEP 1: Does the patient complete the activity by him/herself with no assistance (physical, verbal/nonverbal cueing, setup/clean-up)? No. EATING - STEP 2: Does the patient need only setup/clean-up assistance from one helper? Yes. 1. [id number] ADMISSION PERFORMANCE: Setup or clean-up assistance CODE: 05 ORAL HYGIENE: ORAL HYGIENE - STEP 1: Does the patient complete the activity by him/herself with no assistance (physical, verbal/nonverbal cueing, setup/clean-up)? Yes. 1. [id number] ADMISSION PERFORMANCE: Independent CODE: 06 TOILETING HYGIENE: TOILETING HYGIENE - STEP 1: Does the patient complete the activity by him/herself with no assistance (physical, verbal/nonverbal cueing, setup/clean-up)? No. TOILETING HYGIENE - STEP 2: Does the patient need only setup/clean-up assistance from one helper? No. TOILETING HYGIENE - STEP 3: Does the patient need only verbal/nonverbal cueing or touching/steadying/contact guard assistance fro m one helper? No. TOILETING HYGIENE - STEP 4: Does the patient need physical assistance - for example lifting or trunk support from one helper - wi th the helper providing less than half of the effort? Yes. 1. [id number] ADMISSION PERFORMANCE: Partial/moderate assistance CODE: 03 BATHING: Not assessed/no information CODE: - DRESSING - UPPER BODY: DRESSING - UPPER BODY - STEP 1: Does the patient complete the activity by him/herself with no assistance (physical, verbal/nonverbal cueing, setup/clean-up)? Yes. 1. [id number] ADMISSION PERFORMANCE: Independent CODE: 06 DRESSING - LOWER BODY: DRESSING - LOWER BODY - STEP 1: Does the patient complete the activity by him/herself with no assistance (physical, verbal/nonverbal cueing, setup/clean-up)? No. DRESSING - LOWER BODY - STEP 2: Does the patient need only setup/clean-up assistance from one helper? Yes. 1. [id number] ADMISSION PERFORMANCE: Setup or clean-up assistance CODE: 05 PUTTING ON/TAKING OFF FOOTWEAR: FOOTWEAR - STEP 1: Does the patient complete the activity by him/herself with no assistance (physical, verbal/nonverbal cueing, setup/clean-up)? No. FOOTWEAR - STEP 2: Does the patient need only setup/clean-up assistance from one helper? Yes. 1. [id number] ADMISSION PERFORMANCE: Setup or clean-up assistance CODE: 05 DOES THE PATIENT USE A WHEELCHAIR/SCOOTER? CODE: EXPR INDICATE THE TYPE OF WHEELCHAIR/SCOOTER USED: CODE: EXPR INDICATE THE TYPE OF WHEELCHAIR/SCOOTER USED: CODE: EXPR BLADDER AND BOWEL: H350. BLADDER CONTINENCE (3-DAY ASSESSMENT PERIOD): Always continent (no documented incontinence) CODE: 0 H400. BOWEL CONTINENCE (3-DAY ASSESSMENT PERIOD): Always continent CODE: 0 SIGNATURE PANEL: The following modified sections: 1. [id number] Admission Performance, 1. [id number] Admission Performance, 1. VJ3000K Admission Performance, 1. KW9054o Admission Performance, 1. BG7113y Admission Performance, 1. VP0870f Admission Performance, H350. Bladder Continence (3-day assessment period), H400. Bowel Co ntinence (3-day assessment period) were [electronically] signed by Cathy De La VegaNLissett on WedApr 05 2019 14:59:20 GMT-0600 (Central Standard Time)
[2019-04-05] MEDS: ENOXAPARIN 40 MG/0.4 ML SQ SCH (16:10)
[2019-04-05] MEDS ORDERED: ONDANSETRON 4 MG (ODT) TAB PO PRN (16:31)
[2019-04-05] MEDS: MAGNESIUM OXIDE 400 MG TAB PO SCH (19:49)
[2019-04-05] MEDS: MELATONIN 3 MG TABLET PO SCH (19:50)
--- NOTE | 2019-04-05 20:13 | PN ---
Date of Progress Note: 04/05/2019 Subjective: The patient was seen this morning for followup. No new complaints or problems reported by patient, lying in bed, not in distress. Objective: Vital Signs: Reviewed. HEENT: Unremarkable. Lungs: Clear to auscultation. Heart: Sounds normal. Abdomen: Soft. Bowel sounds normal. No guarding, rigidity, tenderness, distention. Extremities: No leg edema. Impression: 1.Hypertension. 2.Stroke with left-sided hemiparesis. 3.Insomnia. Plan: The patient's blood pressure has been elevated. Vital signs readings reviewed and she is taki ng losartan 25 mg p.o. daily. We will increase dose to 50 mg p.o. daily and I will see her tomorrow for followup. Continue Lovenox for DVT prophylaxis. JULIO/MODL Voice ID: [id number] Report ID: [id number]
[2019-04-05] MEDS: ALPRAZOLAM 0.5 MG TABLET PO SCH (21:48)
--- NOTE | 2019-04-06 00:34 | PN ---
Subjective: Ms. Ernandez is sitting in a chair beside her bed. She is in no acute distress. She has no new complaints. She does report improvement in strength to the left upper and lower extremity. She said she did well with her therapy today, ambulating around 500 feet stopping twice. Objective: Vital Signs: Blood pressure 114/58, pulse of 78, respiratory rate 16, temperature 97.6, oxygen saturation 97%. Weight 124 pounds, height 5 feet 2 inches, BMI 22.8. General: Ms. Ernandez is resting in chair. Lungs: She is clear to auscultation. Abdomen: Soft. Extremities: Show no significant edema, cyanosis, or clubbing. Her left lower extremity and upper e xtremity show at least 4+/5 strength, right side 5/5 strength. Laboratory Data: Labs were reviewed. Assessment: Ms. Ernandez is a 63-year-old patient with a left brain mass and stroke, who is recoverin g very well with physical and occupational therapy. [facility] has [facility] She is on Lovenox for deep venous thrombosis prophylaxis and Cozaar for hypertension. Plan: 1.Continue all current medications. 2.Continue her physical, occupational, and speech therapy. JÚNIOR/LENCHO Voice ID: [id number] Report ID: [id number]
[2019-04-06 06:29] LABS: Absolute Lymphocytes (CBC) 2.4 K/uL (0.7-4.9); Basophils % 0.3 % (0-1.3); Lymphocytes % 23.5 % (15.3-44.8); MPV 9.5 fL (7.6-11.3); RBC Red Blood Cell Count 3.83 M/uL (3.86-4.86)
[2019-04-06 06:51] LABS: Albumin 2.9 g/dL (3.4-5.0); BUN Blood Urea Nitrogen 14 mg/dL (7-18); Bicarbonate 26 mmol/L (21-32); Glucose Level 107 mg/dL (74-106); Magnesium 2.3 mg/dL (1.8-2.4); Potassium 3.8 mmol/L (3.5-5.1); Prealbumin 19.3 mg/dL (20-40); Sodium Level 145 mmol/L (136-145)
[2019-04-06] MEDS: TRIAMCINOLONE 0.1% CREAM 15GM TOP SCH ×2 (08:00→20:38)
[2019-04-06] MEDS: CLOTRIMAZOLE 1% CREAM 15 GM TOP SCH ×2 (08:00→20:00)
[2019-04-06] MEDS: DULOXETINE 20 MG CAP PO SCH (08:12)
[2019-04-06] MEDS: LOSARTAN POTASSIUM 50 MG TABLET PO SCH (08:12)
--- NOTE | 2019-04-06 15:13 | FAST ---
ENCOUNTER DATE AND TIME: 04/06/2019 08:00 (RN URGENT CARE) NAME GLENN WALKER DATE OF : 1955 DATE OF ADMISSION: 03/11/2019 14:31 (RN URGENT CARE) PHONE: AGE: 63 N# [id number] GENDER: Female ENCOUNTER PHYSICIAN: Dr. Sawyer Rios M.D. 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 - Stroke 01 - Other Stroke (01.9) Intracranial Hemorrhage. Right [place] Infarct. ROLL LEFT AND RIGHT: ROLL LEFT AND RIGHT - STEP 1: Does the patient complete the activity by him/herself with no assistance (physical, verbal/nonverbal cueing, setup/clean-up)? No. ROLL LEFT AND RIGHT - STEP 2: Does the patient need only setup/clean-up assistance from one helper? No. ROLL LEFT AND RIGHT - STEP 3: Does the patient need only verbal/nonverbal cueing or touching/steadying/contact guard assistance fro m one helper? Yes. 1. [id number] ADMISSION PERFORMANCE: Supervision or touching assistance CODE: 04 SIT TO LYING: SIT TO LYING - STEP 1: Does the patient complete the activity by him/herself with no assistance (physical, verbal/nonverbal cueing, setup/clean-up)? No. SIT TO LYING - STEP 2: Does the patient need only setup/clean-up assistance from one helper? No. SIT TO LYING - STEP 3: Does the patient need only verbal/nonverbal cueing or touching/steadying/contact guard assistance fro m one helper? Yes. 1. [id number] ADMISSION PERFORMANCE: Supervision or touching assistance CODE: 04 LYING TO SITTING: LYING TO SITTING ON SIDE OF BED - STEP 1: Does the patient complete the activity by him/herself with no assistance (physical, verbal/nonverbal cueing, setup/clean-up)? No. LYING TO SITTING ON SIDE OF BED - STEP 2: Does the patient need only setup/clean-up assistance from one helper? No. LYING TO SITTING ON SIDE OF BED - STEP 3: Does the patient need only verbal/nonverbal cueing or touching/steadying/contact guard assistance fro m one helper? Yes. 1. [id number] ADMISSION PERFORMANCE: Supervision or touching assistance CODE: 04 SIT TO STAND: SIT TO STAND - STEP 1: Does the patient complete the activity by him/herself with no assistance (physical, verbal/nonverbal cueing, setup/clean-up)? No. SIT TO STAND - STEP 2: Does the patient need only setup/clean-up assistance from one helper? No. SIT TO STAND - STEP 3: Does the patient need only verbal/nonverbal cueing or touching/steadying/contact guard assistance fro m one helper? Yes. 1. [id number] ADMISSION PERFORMANCE: Supervision or touching assistance CODE: 04 TRANSFERS: BED, CHAIR: CHAIR/[id number] TRANSFER - STEP 1: Does the patient complete the activity by him/herself with no assistance (physical, verbal/nonverbal cueing, setup/clean-up)? No. CHAIR/PPL-OH-[id number] TRANSFER - STEP 2: Does the patient need only setup/clean-up assistance from one helper? No. CHAIR/[id number] TRANSFER - STEP 3: Does the patient need only verbal/nonverbal cueing or touching/steadying/contact guard assistance fro m one helper? Yes. 1. [id number] ADMISSION PERFORMANCE: Supervision or touching assistance CODE: 04 TRANSFER TOILET: TOILET TRANSFER - STEP 1: Does the patient complete the activity by him/herself with no assistance (physical, verbal/nonverbal cueing, setup/clean-up)? No. TOILET TRANSFER - STEP 2: Does the patient need only setup/clean-up assistance from one helper? No. TOILET TRANSFER - STEP 3: Does the patient need only verbal/nonverbal cueing or touching/steadying/contact guard assistance fro m one helper? Yes. 1. [id number] ADMISSION PERFORMANCE: Supervision or touching assistance CODE: 04 TRANSFERS: CAR: CAR TRANSFER - STEP 1: Does the patient complete the activity by him/herself with no assistance (physical, verbal/nonverbal cueing, setup/clean-up)? No. CAR TRANSFER - STEP 2: Does the patient need only setup/clean-up assistance from one helper? No. CAR TRANSFER - STEP 3: Does the patient need only verbal/nonverbal cueing or touching/steadying/contact guard assistance fro m one helper? Yes. 1. [id number] ADMISSION PERFORMANCE: Supervision or touching assistance CODE: 04 WALK 10 FEET: WALK 10 FEET - STEP 1: Does the patient complete the activity by him/herself with no assistance (physical, verbal/nonverbal cueing, setup/clean-up)? No. WALK 10 FEET - STEP 2: Does the patient need only setup/clean-up assistance from one helper? No. WALK 10 FEET - STEP 3: Does the patient need only verbal/nonverbal cueing or touching/steadying/contact guard assistance fro m one helper? Yes. 1. [id number] ADMISSION PERFORMANCE: Supervision or touching assistance CODE: 04 WALK 50 FEET: WALK 50 FEET - STEP 1: Does the patient complete the activity by him/herself with no assistance (physical, verbal/nonverbal cueing, setup/clean-up)? No. WALK 50 FEET - STEP 2: Does the patient need only setup/clean-up assistance from one helper? No. WALK 50 FEET - STEP 3: Does the patient need only verbal/nonverbal cueing or touching/steadying/contact guard assistance fro m one helper? Yes. 1. [id number] ADMISSION PERFORMANCE: Supervision or touching assistance CODE: WALK 150 FEET: WALK 150 FEET - STEP 1: Does the patient complete the activity by him/herself with no assistance (physical, verbal/nonverbal cueing, setup/clean-up)? No. WALK 150 FEET - STEP 2: Does the patient need only setup/clean-up assistance from one helper? No. WALK 150 FEET - STEP 3: Does the patient need only verbal/nonverbal cueing or touching/steadying/contact guard assistance fro m one helper? Yes. 1. [id number] ADMISSION PERFORMANCE: Supervision or touching assistance CODE: WALK 10 FEET UNEVEN: Not attempted due to medical condition or safety concerns CODE: 88 1 STEP (CURB): 1 STEP CURB - STEP 1: Does the patient complete the activity by him/herself with no assistance (physical, verbal/nonverbal cueing, setup/clean-up)? No. 1 STEP CURB - STEP 2: Does the patient need only setup/clean-up assistance from one helper? No. 1 STEP CURB - STEP 3: Does the patient need only verbal/nonverbal cueing or touching/steadying/contact guard assistance fro m one helper? Yes. 1. [id number] ADMISSION PERFORMANCE: Supervision or touching assistance CODE: 04 4 STEPS: 4 STEPS - STEP 1: Does the patient complete the activity by him/herself with no assistance (physical, verbal/nonverbal cueing, setup/clean-up)? No. 4 STEPS - STEP 2: Does the patient need only setup/clean-up assistance from one helper? No. 4 STEPS - STEP 3: Does the patient need only verbal/nonverbal cueing or touching/steadying/contact guard assistance fro m one helper? Yes. 1. [id number] ADMISSION PERFORMANCE: Supervision or touching assistance CODE: 04 12 STEPS: Not attempted due to medical condition or safety concerns CODE: 88 PICKING UP OBJECT: Not attempted due to medical condition or safety concerns CODE: 88 DOES THE PATIENT USE A WHEELCHAIR/SCOOTER? Q1. DOES THE PATIENT USE A WHEELCHAIR/SCOOTER?: Yes CODE: 1 WHEEL 50 FEET WITH TWO TURNS: WHEEL 50 FEET WITH TWO TURNS - STEP 1: Does the patient complete the activity by him/herself with no assistance (physical, verbal/nonverbal cueing, setup/clean-up)? Yes. 1. [id number] ADMISSION PERFORMANCE: Independent CODE: 06 INDICATE THE TYPE OF WHEELCHAIR/SCOOTER USED: RR1. INDICATE THE TYPE OF WHEELCHAIR/SCOOTER USED.: Manual CODE: 1 WHEEL 150 FEET: WHEEL 150 FEET - STEP 1: Does the patient complete the activity by him/herself with no assistance (physical, verbal/nonverbal cueing, setup/clean-up)? Yes. 1. [id number] ADMISSION PERFORMANCE: Independent CODE: 06 INDICATE THE TYPE OF WHEELCHAIR/SCOOTER USED: SS1. INDICATE THE TYPE OF WHEELCHAIR/SCOOTER USED.: Manual CODE: 1 BLADDER AND BOWEL: CODE: EXPR CODE: EXPR SIGNATURE PANEL: The following modified sections: 1. [id number] Admission Performance, 1. DQ0051V Admission Performance, 1. YT7336Q Admission Performance, 1. [id number] Admission Performance, 1. KS0574F Admission Performance, 1. PW3079S Admission Performance, 1. QU4457V Admission Performance, 1. FM9418Y Admission Performance , 1. ES0338O Admission Performance, 1. TS8065O Admission Performance, 1. AE7505J Admission Performanc e, 1. GX0899W Admission Performance, Q1. Does the patient use a wheelchair/scooter?, 1. SK3878N Admis willie Performance, RR1. Indicate the type of wheelchair/scooter used., 1. ZQ5249S Admission Tanvi logan, Code, SS1. Indicate the type of wheelchair/scooter used. were [electronically] signed by Flo logan PTA on WedApr 06 2019 15:12:03 GMT-0600 (Central Standard Time)
[2019-04-06] MEDS: ENOXAPARIN 40 MG/0.4 ML SQ SCH (16:08)
[2019-04-06] MEDS: DOCUSATE NA/SENNA CONC 1 TAB PO PRN (20:37)
[2019-04-06] MEDS: MAGNESIUM OXIDE 400 MG TAB PO SCH (20:38)
[2019-04-06] MEDS: MELATONIN 3 MG TABLET PO SCH (20:38)
[2019-04-06] MEDS: ALPRAZOLAM 0.5 MG TABLET PO SCH (20:38)
--- NOTE | 2019-04-06 23:02 | PN ---
Subjective: Ms. Ernandez states she is doing very well. She does not have any pain. She is getting stronger in her left upper and lower extremities and ambulated around 500 feet without significant di fficulty today. She is mobilizing on a wheelchair very well and doing transfers very well. She has no new complaints. Objective: Vital Signs: Blood pressure 121/69, pulse 84, respiratory rate 16, temperature 97.8, bruce ght 124 pounds, height 5 feet 2 inches, oxygen saturation 99%. General: Ms. Ernandez has just finished therapy for the morning. She is back in her room, sitting co mfortably in a wheelchair, in no acute distress. HEENT: She is normocephalic, atraumatic. Sclerae are anicteric. Oropharynx pink and moist. Neck: Supple. Chest: Clear. Heart: Regular. Extremities: Show no edema, cyanosis, or clubbing. Neurologic: Alert, oriented to situation, place, and person. She has at least 4/5 strength in the l eft upper and lower extremity, following her stroke, and is doing very well from my perspective. Laboratory Studies: Complete blood count with differential shows a normal white blood cell count. H emoglobin is steady at 8.8, since 03/11/2019, when it was 11.6, essentially unchanged. Electrolyte p dave shows slightly elevated chloride of 112, slightly low creatinine of 0.41, which is unchanged sin ce March 11. Her pre-albumin is very slightly low at 19.3, calcium slightly low at 8.2, and magne sium normal at 2.3. Assessment: Ms. Ernandez is a 63-year-old patient with stroke as well as a [employer] tumor with partial res ection, who has comorbid depression, hypertension, insomnia, and is doing very well with physical and occupational therapy. Plan: 1.Continue with physical and occupational therapy. 2.Continue with Cymbalta as needed as well as Xanax as needed. Continue melatonin 3 mg at night for insomnia, Senokot-S for constipation, Lovenox 40 mg subcutaneously daily for DVT prophylaxis, Cozaar for hypertension and magnesium for muscle spasms. LB/MODL Voice ID: [id number] Report ID: [id number]
--- NOTE | 2019-04-07 00:02 | PN ---
Date of Progress Note: 04/06/2019 Subjective: Patient was seen this morning for followup. No new complaints, problems reported by shoshana gamez. Objective: Vital Signs: Reviewed. HEENT: Unremarkable. Lungs: Clear to auscultation. Heart: Sounds normal. Abdomen: Soft. Bowel sounds normal. No guarding, rigidity, tenderness, or distention. Extremities: No leg edema. Laboratory Data: White count 10.4, hemoglobin 11.8, platelets 280. Sodium 145, potassium 3.8, chlor scott 101, bicarb 26, BUN 14, creatinine 0.41, glucose 107. Impression: 1.Hypertension. 2.Stroke with left-sided hemiparesis. 3.Insomnia. Plan: We would go ahead and continue current antihypertensive medication and Lovenox. Yesterday, af ter she ate something, she had little bit stomach upset, but today she is feeling better. No vomitin g. No diarrhea today. Her abdomen is soft, no need for any further intervention at this point. JULIO/MODL Voice ID: [id number] Report ID: [id number]
[2019-04-07] MEDS: CLOTRIMAZOLE 1% CREAM 15 GM TOP SCH (07:53)
[2019-04-07] MEDS: TRIAMCINOLONE 0.1% CREAM 15GM TOP SCH ×2 (07:54→20:00)
[2019-04-07] MEDS: LOSARTAN POTASSIUM 50 MG TABLET PO SCH (07:55)
[2019-04-07] MEDS: DULOXETINE 20 MG CAP PO SCH (07:55)
[2019-04-07] MEDS ORDERED: CLOTRIMAZOLE 1% CREAM 15 GM TOP PRN (08:13)
--- NOTE | 2019-04-07 09:56 | P.RH.PN ---
Estimated Length of Stay: 33 Expected Discharge Date: 04/11/19 Discharge Disposition Plan: Home Family Support: Yes Shelter Goal: Mobility, Transfers, Self Care Vital Signs: Last Vital Signs Temp 97.5 F 04/07/19 07:01 Pulse 82 04/07/19 07:01 Resp 16 04/07/19 07:01 BP 155/86 H 04/07/19 07:01 Pulse Ox 98 04/07/19 07:01 Laboratory: Laboratory Last Values WBC 10.4 K/uL (4.3-10.9) D 04/06/19 06:06 RBC 3.83 M/uL (3.86-4.86) L 04/06/19 06:06 Hgb 11.8 g/dL (12.0-15.0) L 04/06/19 06:06 Hct 35.0 % (36.0-45.0) L 04/06/19 06:06 MCV 91.4 fL (80-100) 04/06/19 06:06 MCH 30.8 pg (27.0-35.0) 04/06/19 06:06 MCHC 33.7 g/dL (32.0-36.0) 04/06/19 06:06 RDW 14.0 % (12.1-15.2) 04/06/19 06:06 Plt Count 284 K/uL (152-406) 04/06/19 06:06 MPV 9.5 fL (7.6-11.3) 04/06/19 06:06 Neutrophils % 65.6 % (41.7-73.7) 04/06/19 06:06 Lymphocytes % 23.5 % (15.3-44.8) 04/06/19 06:06 Monocytes % 9.7 % (3.3-12.3) 04/06/19 06:06 Eosinophils % 0.9 % (0-4.4) 04/06/19 06:06 Basophils % 0.3 % (0-1.3) 04/06/19 06:06 Absolute Neutrophils 6.8 K/uL (1.8-8.0) 04/06/19 06:06 Segmented Neutrophils 73 % (40-80) 03/11/19 05:52 Absolute Lymphocytes 2.4 K/uL (0.7-4.9) 04/06/19 06:06 Lymphocytes 15 % (15-42) 03/11/19 05:52 Monocytes 11 % (0-10) H 03/11/19 05:52 Absolute Monocytes 1.0 K/uL (0.1-1.3) 04/06/19 06:06 Eosinophils 1 % (0-3) 03/11/19 05:52 Absolute Eosinophils 0.1 K/uL (0-0.5) 04/06/19 06:06 Absolute Basophils 0.0 K/uL (0-0.5) 04/06/19 06:06 Morphology Comment Not seen (NOT SEEN) 03/11/19 05:52 Sodium 145 mmol/L (136-145) 04/06/19 06:06 Potassium 3.8 mmol/L (3.5-5.1) 04/06/19 06:06 Chloride 112 mmol/L (98-107) H 04/06/19 06:06 Carbon Dioxide 26 mmol/L (21-32) 04/06/19 06:06 BUN 14 mg/dL (7-18) 04/06/19 06:06 Creatinine 0.41 mg/dL (0.55-1.3) L 04/06/19 06:06 Estimated GFR > 90 mL/min (=/>90) 04/06/19 06:06 Glucose 107 mg/dL (74-106) H 04/06/19 06:06 Calcium 8.2 mg/dL (8.5-10.1) L 04/06/19 06:06 Magnesium 2.3 mg/dL (1.8-2.4) 04/06/19 06:06 Albumin 2.9 g/dL (3.4-5.0) L 04/06/19 06:06 Prealbumin 19.3 mg/dL (20-40) L 04/06/19 06:06 Urine Color Yellow 03/11/19 00:40 Urine Appearance Clear 03/11/19 00:40 Urine pH 5.0 (5.0-7.0) 03/11/19 00:40 Ur Specific [place] 1.020 (1.005-1.030) 03/11/19 00:40 Urine Ketones Negative (NEG) 03/11/19 00:40 Urine Blood Negative (NEG) 03/11/19 00:40 Urine Nitrite Negative (NEG) 03/11/19 00:40 Urine Bilirubin Negative (NEG) 03/11/19 00:40 Urine Urobilinogen 0.2 mg/dL (0.2-1.0) 03/11/19 00:40 Ur Leukocyte Esterase 1+ (NEG) H 03/11/19 00:40 Urine RBC <5 /HPF (NONE SEEN) 03/11/19 00:40 Urine WBC 10-20 /HPF (<5) H 03/11/19 00:40 Ur Squamous Epith Cells 5-10 /HPF (NONE SEEN) H 03/11/19 00:40 Calcium Oxalate Crystal Few (NONE SEEN) 03/11/19 00:40 Urine Bacteria 20-50 /HPF (<20) H 03/11/19 00:40 Urine Mucus 3+ /HPF (NONE SEEN) H 03/11/19 00:40 Urine Culture Reflexed Not needed 03/11/19 00:40 Urine Glucose Negative (NEG) 03/11/19 00:40 Urine Total Protein Negative (NEG) 03/11/19 00:40 Weight: 124 lb 12.8 oz Wound Present: No Closed Surgical Incision Present: No Negative Pressure Wound Therapy Present: No Physician Update: Labs were reviewed and are stable. She is doing fairly well and appears to have reaches a baseline. She had slower progress over the last week. Walks 250' and transfers with contact guard assistance. Up and down 15 stairs with contact guard assistance. She still requires 24/7 care for at least the next several weeks. Medical Issues: Patient is incontinent daily with bladder and always continent with bowel. Functional Improvement: Patient has progressed well over her stay in rehab, however patient continues to require partial assistance for transfers and gait tx. at this time. Speech Therapy Update: Patient's overall cognitive-linguistic skills are within functional limits. However, during functional tasks patient can become overwhelmed or anxious quite easily and she "shutsdown." Patient is at [facility] for Auditory Comprehension, Verbal Expression and Memory, and SUPV for Safety and Problem Solving. Patient is being d/c next week at home with 24 hour supervision/family support. Patient will not require ST services once discharged to home. Summary: Patient's care plan and correction goals have been reviewed and revised as necessary. Please see the Rehabilitation Signature page for all necessary signatures.
--- NOTE | 2019-04-07 13:03 | PN ---
Date of Progress Note: 04/07/2019 Subjective: Patient was seen this morning for followup. No new complaints or problems reported by t he patient. Objective: Vital Signs: Reviewed. HEENT: Unremarkable. Lungs: Clear to auscultation. Heart: Sounds normal. Abdomen: Soft. Bowel sounds normal. No guarding, rigidity, tenderness, distention. Extremities: No leg edema. Impression: 1.Hypertension. 2.Stroke with left-sided hemiparesis. 3.Insomnia. Plan: We will continue current medication including current antihypertensive medication and Lovenox for DVT prophylaxis. Continue current treatment for insomnia. Her systolic blood pressure this morn ing was around 156. We will monitor that and if necessary make further adjustment on losartan. JULIO/MODL Voice ID: [id number] Report ID: [id number]
--- NOTE | 2019-04-07 15:50 | FAST ---
ENCOUNTER DATE AND TIME: 04/07/2019 08:00 (COMMERCIAL INSTALLER) NAME GLENN WALKER DATE OF : 1955 DATE OF ADMISSION: 03/11/2019 14:31 (COMMERCIAL INSTALLER) PHONE: AGE: 63 N# [id number] GENDER: Female ENCOUNTER PHYSICIAN: Dr. Sawyer Rios M.D. 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 - Stroke 01 - Other Stroke (01.9) Intracranial Hemorrhage. Right [place] Infarct. EATING: Not assessed/no information CODE: - ORAL HYGIENE: ORAL HYGIENE - STEP 1: Does the patient complete the activity by him/herself with no assistance (physical, verbal/nonverbal cueing, setup/clean-up)? Yes. 1. [id number] ADMISSION PERFORMANCE: Independent CODE: 06 TOILETING HYGIENE: TOILETING HYGIENE - STEP 1: Does the patient complete the activity by him/herself with no assistance (physical, verbal/nonverbal cueing, setup/clean-up)? No. TOILETING HYGIENE - STEP 2: Does the patient need only setup/clean-up assistance from one helper? No. TOILETING HYGIENE - STEP 3: Does the patient need only verbal/nonverbal cueing or touching/steadying/contact guard assistance fro m one helper? Yes. 1. [id number] ADMISSION PERFORMANCE: Supervision or touching assistance CODE: 04 BATHING: SHOWER/BATHE SELF - STEP 1: Does the patient complete the activity by him/herself with no assistance (physical, verbal/nonverbal cueing, setup/clean-up)? No. SHOWER/BATHE SELF - STEP 2: Does the patient need only setup/clean-up assistance from one helper? No. SHOWER/BATHE SELF - STEP 3: Does the patient need only verbal/nonverbal cueing or touching/steadying/contact guard assistance fro m one helper? Yes. 1. [id number] ADMISSION PERFORMANCE: Supervision or touching assistance CODE: 04 DRESSING - UPPER BODY: DRESSING - UPPER BODY - STEP 1: Does the patient complete the activity by him/herself with no assistance (physical, verbal/nonverbal cueing, setup/clean-up)? Yes. 1. [id number] ADMISSION PERFORMANCE: Independent CODE: 06 DRESSING - LOWER BODY: DRESSING - LOWER BODY - STEP 1: Does the patient complete the activity by him/herself with no assistance (physical, verbal/nonverbal cueing, setup/clean-up)? No. DRESSING - LOWER BODY - STEP 2: Does the patient need only setup/clean-up assistance from one helper? No. DRESSING - LOWER BODY - STEP 3: Does the patient need only verbal/nonverbal cueing or touching/steadying/contact guard assistance fro m one helper? Yes. 1. [id number] ADMISSION PERFORMANCE: Supervision or touching assistance CODE: 04 PUTTING ON/TAKING OFF FOOTWEAR: FOOTWEAR - STEP 1: Does the patient complete the activity by him/herself with no assistance (physical, verbal/nonverbal cueing, setup/clean-up)? No. FOOTWEAR - STEP 2: Does the patient need only setup/clean-up assistance from one helper? No. FOOTWEAR - STEP 3: Does the patient need only verbal/nonverbal cueing or touching/steadying/contact guard assistance fro m one helper? Yes. 1. [id number] ADMISSION PERFORMANCE: Supervision or touching assistance CODE: 04 DOES THE PATIENT USE A WHEELCHAIR/SCOOTER? CODE: EXPR INDICATE THE TYPE OF WHEELCHAIR/SCOOTER USED: CODE: EXPR INDICATE THE TYPE OF WHEELCHAIR/SCOOTER USED: CODE: EXPR BLADDER AND BOWEL: CODE: EXPR CODE: EXPR SIGNATURE PANEL: The following modified sections: 1. [id number] Admission Performance, 1. [id number] Admission Performance, 1. [id number] Admission Performance, 1. [id number] Admission Performance, 1. [id number] Admission Performance, 1. [id number] Admission Performance were [electronically] signed by TIMI Mohan on WedApr 07 2019 15:49:08 GMT-0600 (Central Standard Time)
[2019-04-07] MEDS: ENOXAPARIN 40 MG/0.4 ML SQ SCH (17:01)
[2019-04-07] MEDS: DOCUSATE NA/SENNA CONC 1 TAB PO PRN (19:43)
[2019-04-07] MEDS: MELATONIN 3 MG TABLET PO SCH (20:25)
[2019-04-07] MEDS: MAGNESIUM OXIDE 400 MG TAB PO SCH (20:25)
[2019-04-07] MEDS: ALPRAZOLAM 0.5 MG TABLET PO SCH (21:15)
--- NOTE | 2019-04-08 02:41 | FAST ---
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 Sawyer Rios M.D. 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 - Stroke 01 - Other Stroke (01.9) Intracranial Hemorrhage. Right [place] Infarct. EATING: Not assessed/no information CODE: - ORAL HYGIENE: ORAL HYGIENE - STEP 1: Does the patient complete the activity by him/herself with no assistance (physical, verbal/nonverbal cueing, setup/clean-up)? No. ORAL HYGIENE - STEP 2: Does the patient need only setup/clean-up assistance from one helper? No. ORAL HYGIENE - STEP 3: Does the patient need only verbal/nonverbal cueing or touching/steadying/contact guard assistance fro m one helper? Yes. 1. [id number] ADMISSION PERFORMANCE: Supervision or touching assistance CODE: 04 TOILETING HYGIENE: TOILETING HYGIENE - STEP 1: Does the patient complete the activity by him/herself with no assistance (physical, verbal/nonverbal cueing, setup/clean-up)? No. TOILETING HYGIENE - STEP 2: Does the patient need only setup/clean-up assistance from one helper? No. TOILETING HYGIENE - STEP 3: Does the patient need only verbal/nonverbal cueing or touching/steadying/contact guard assistance fro m one helper? No. TOILETING HYGIENE - STEP 4: Does the patient need physical assistance - for example lifting or trunk support from one helper - wi th the helper providing less than half of the effort? Yes. 1. [id number] ADMISSION PERFORMANCE: Partial/moderate assistance CODE: 03 BATHING: Not assessed/no information CODE: - DRESSING - UPPER BODY: Not assessed/no information CODE: - DRESSING - LOWER BODY: Not assessed/no information CODE: - PUTTING ON/TAKING OFF FOOTWEAR: Not assessed/no information CODE: - ROLL LEFT AND RIGHT: ROLL LEFT AND RIGHT - STEP 1: Does the patient complete the activity by him/herself with no assistance (physical, verbal/nonverbal cueing, setup/clean-up)? No. ROLL LEFT AND RIGHT - STEP 2: Does the patient need only setup/clean-up assistance from one helper? No. ROLL LEFT AND RIGHT - STEP 3: Does the patient need only verbal/nonverbal cueing or touching/steadying/contact guard assistance fro m one helper? No. ROLL LEFT AND RIGHT - STEP 4: Does the patient need physical assistance - for example lifting or trunk support from one helper - wi th the helper providing less than half of the effort? Yes. 1. [id number] ADMISSION PERFORMANCE: Partial/moderate assistance CODE: 03 SIT TO LYING: SIT TO LYING - STEP 1: Does the patient complete the activity by him/herself with no assistance (physical, verbal/nonverbal cueing, setup/clean-up)? No. SIT TO LYING - STEP 2: Does the patient need only setup/clean-up assistance from one helper? No. SIT TO LYING - STEP 3: Does the patient need only verbal/nonverbal cueing or touching/steadying/contact guard assistance fro m one helper? No. SIT TO LYING - STEP 4: Does the patient need physical assistance - for example lifting or trunk support from one helper - wi th the helper providing less than half of the effort? Yes. 1. [id number] ADMISSION PERFORMANCE: Partial/moderate assistance CODE: 03 LYING TO SITTING: LYING TO SITTING ON SIDE OF BED - STEP 1: Does the patient complete the activity by him/herself with no assistance (physical, verbal/nonverbal cueing, setup/clean-up)? No. LYING TO SITTING ON SIDE OF BED - STEP 2: Does the patient need only setup/clean-up assistance from one helper? No. LYING TO SITTING ON SIDE OF BED - STEP 3: Does the patient need only verbal/nonverbal cueing or touching/steadying/contact guard assistance fro m one helper? No. LYING TO SITTING ON SIDE OF BED - STEP 4: Does the patient need physical assistance - for example lifting or trunk support from one helper - wi th the helper providing less than half of the effort? Yes. 1. [id number] ADMISSION PERFORMANCE: Partial/moderate assistance CODE: 03 SIT TO STAND: SIT TO STAND - STEP 1: Does the patient complete the activity by him/herself with no assistance (physical, verbal/nonverbal cueing, setup/clean-up)? No. SIT TO STAND - STEP 2: Does the patient need only setup/clean-up assistance from one helper? No. SIT TO STAND - STEP 3: Does the patient need only verbal/nonverbal cueing or touching/steadying/contact guard assistance fro m one helper? No. SIT TO STAND - STEP 4: Does the patient need physical assistance - for example lifting or trunk support from one helper - wi th the helper providing less than half of the effort? Yes. 1. [id number] ADMISSION PERFORMANCE: Partial/moderate assistance CODE: 03 TRANSFERS: BED, CHAIR: CHAIR/[id number] TRANSFER - STEP 1: Does the patient complete the activity by him/herself with no assistance (physical, verbal/nonverbal cueing, setup/clean-up)? No. CHAIR/[id number] TRANSFER - STEP 2: Does the patient need only setup/clean-up assistance from one helper? No. CHAIR/[id number] TRANSFER - STEP 3: Does the patient need only verbal/nonverbal cueing or touching/steadying/contact guard assistance fro m one helper? No. CHAIR/[id number] TRANSFER - STEP 4: Does the patient need physical assistance - for example lifting or trunk support from one helper - wi th the helper providing less than half of the effort? Yes. 1. [id number] ADMISSION PERFORMANCE: Partial/moderate assistance CODE: 03 TRANSFER TOILET: TOILET TRANSFER - STEP 1: Does the patient complete the activity by him/herself with no assistance (physical, verbal/nonverbal cueing, setup/clean-up)? No. TOILET TRANSFER - STEP 2: Does the patient need only setup/clean-up assistance from one helper? No. TOILET TRANSFER - STEP 3: Does the patient need only verbal/nonverbal cueing or touching/steadying/contact guard assistance fro m one helper? No. TOILET TRANSFER - STEP 4: Does the patient need physical assistance - for example lifting or trunk support from one helper - wi th the helper providing less than half of the effort? Yes. 1. [id number] ADMISSION PERFORMANCE: Partial/moderate assistance CODE: 03 TRANSFERS: CAR: Not assessed/no information CODE: - WALK 10 FEET: Not assessed/no information CODE: - 1 STEP (CURB): Not assessed/no information CODE: - PICKING UP OBJECT: Not assessed/no information CODE: - DOES THE PATIENT USE A WHEELCHAIR/SCOOTER? CODE: EXPR WHEEL 50 FEET WITH TWO TURNS: Not assessed/no information CODE: - INDICATE THE TYPE OF WHEELCHAIR/SCOOTER USED: CODE: EXPR WHEEL 150 FEET: Not assessed/no information CODE: - INDICATE THE TYPE OF WHEELCHAIR/SCOOTER USED: CODE: EXPR BLADDER AND BOWEL: H350. BLADDER CONTINENCE (3-DAY ASSESSMENT PERIOD): Always continent (no documented incontinence) CODE: 0 H400. BOWEL CONTINENCE (3-DAY ASSESSMENT PERIOD): Always continent CODE: 0
[2019-04-08 05:33] VITALS: BMI 23.1
[2019-04-08] MEDS: TRIAMCINOLONE 0.1% CREAM 15GM TOP SCH ×2 (07:49→19:46)
[2019-04-08] MEDS: DULOXETINE 20 MG CAP PO SCH (07:49)
[2019-04-08] MEDS: LOSARTAN POTASSIUM 50 MG TABLET PO SCH (07:49)
--- NOTE | 2019-04-08 12:25 | PN ---
Date of Progress Note: 04/08/2019 Subjective: Patient was seen this morning for followup. She was sitting in wheelchair. No new comp laints or problems reported. Objective: Vital Signs: Reviewed. HEENT: Examination unremarkable. Lungs: Clear to auscultation. Heart: Sounds normal. Abdomen: Soft. Bowel sounds normal. No guarding, rigidity, tenderness, distention. Extremities: No leg edema. Impression: 1.Hypertension. 2.Stroke with left-sided hemiparesis. 3.Primary insomnia. Plan: We will continue current medications. Continue current antihypertensive medication, losartan and Lovenox. Patient is scheduled to go home on Wednesday. We will continue current insomnia medicati on. JULIO/MODL Voice ID: [id number] Report ID: [id number]
[2019-04-08] MEDS: ENOXAPARIN 40 MG/0.4 ML SQ SCH (17:00)
[2019-04-08] MEDS: DOCUSATE NA/SENNA CONC 1 TAB PO PRN (19:46)
[2019-04-08] MEDS: ALPRAZOLAM 0.5 MG TABLET PO SCH (19:46)
[2019-04-08] MEDS: MAGNESIUM OXIDE 400 MG TAB PO SCH (19:47)
[2019-04-08] MEDS: MELATONIN 3 MG TABLET PO SCH (19:47)
[2019-04-09] MEDS: LOSARTAN POTASSIUM 50 MG TABLET PO SCH (08:15)
[2019-04-09] MEDS: DULOXETINE 20 MG CAP PO SCH (08:15)
[2019-04-09] MEDS: TRIAMCINOLONE 0.1% CREAM 15GM TOP SCH ×2 (08:17→20:45)
--- NOTE | 2019-04-09 11:14 | PN ---
Date of Progress Note: 04/09/2019 Subjective: The patient was seen this morning for followup. No new complaints or problems reported by the patient. She had no sleep as well last night. No leg swelling. No rash. Objective: Vital Signs: Reviewed. HEENT: Unremarkable. Lungs: Clear to auscultation. Heart: Sounds normal. Abdomen: Soft. Bowel sounds normal. No guarding, rigidity, tenderness, or distention. Extremities: No leg edema. Impression: 1.Hypertension. 2.Primary insomnia. 3.Stroke with left-sided hemiparesis. Plan: Continue current medications including alprazolam, current antihypertensive medication, and DV T prophylaxis. I will see her tomorrow for followup. Her discharge from the rehab floor is schedule d for day after tomorrow. JULIO/MODL Voice ID: [id number] Report ID: [id number]
[2019-04-09] MEDS: ENOXAPARIN 40 MG/0.4 ML SQ SCH (16:51)
[2019-04-09] MEDS: DOCUSATE NA/SENNA CONC 1 TAB PO PRN (20:45)
[2019-04-09] MEDS: ALPRAZOLAM 0.5 MG TABLET PO SCH (20:45)
[2019-04-09] MEDS: MELATONIN 3 MG TABLET PO SCH (20:45)
[2019-04-09] MEDS: MAGNESIUM OXIDE 400 MG TAB PO SCH (20:45)
[2019-04-10] MEDS: DULOXETINE 20 MG CAP PO SCH (08:14)
[2019-04-10] MEDS: TRIAMCINOLONE 0.1% CREAM 15GM TOP SCH ×2 (08:14→20:11)
[2019-04-10] MEDS: LOSARTAN POTASSIUM 50 MG TABLET PO SCH ×2 (08:15→20:10)
[2019-04-10] MEDS: ENOXAPARIN 40 MG/0.4 ML SQ SCH (16:53)
--- NOTE | 2019-04-10 17:47 | R.PN ---
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 Pt denied any Shortness of Breath. She denies headache or nausea. She is making better progress with physical and occupational therapy. Her ADLs were performed with minimum assistance. Ambulated 250' with contact guard assistance using a rolling walker. On Cipro for UTI. Hgb 11.8, WBC 10.4, prealbumin 19.3. Up and down 15 steps with contact guard assistance. VITAL SIGNS Temperature: 97.4 F SBP/DBP: 172/96 Pulse: 92 Resp: 15 MEDICATION ALLERGIES: No Known Drug Allergies (NKDA) ENVIRONMENTAL ALLERGIES: None Known - Substance Allergies None Known - Other Allergies None Known NURSING: - Shower allowing shower - Bladder care per protocol - Skin care per protocol PRECAUTIONS: - Fall Precaution Bed alarm TABS alarm Wheel chair alarm ACTIVITIES OOB only with supervision THERAPIES: - Occupational Therapy Cognitive Retraining. Visual Perceptual Training. - Dietary and Nutrition Adequate Nutrition. Nutritional Education. Nutritional Supplements. - Speech Therapy Cognitive Training. Expressive Language Skills. Memory Strategies. Receptive Language Skills. Speech Intelligibility Training. PHYSICAL EXAM - Gen Alert and awake Lying in bed No apparent distress Oriented to: person, time, and place - Skin No breakdown Normacephalic Scalp surgical site intact - Eyes No abnormalities - ENMT No abnormalities - Neck No abnormalities - CVS RRR - Chest No abnormalities - Resp Clear to auscultation - Abd + bowel sounds - GI Soft Deferred - No abnormalities - Ext no edema - MSK 3-4+/5 weakness in both lower extremities. - Neuro Diffuse weakness, incoordination and unsteady gait - Psych Moderate depression. ASSESSMENT: Pt. is a 63 yo Right-handed female.On 01/25/2019 she was admitted to [facility] with diagnosis Brain Mass.Her impairment category is Brain Dysfunction 02 - Non-trau matic Brain Dysfunction (02.1).Pre-morbidly, Pt. was independent/mod-I in Locomotion, Safety Awarenes s, Balance, Social Cognition, Transfers Control, Sphincter Control, Self-Care, Communication, and End urance; and she had good Locomotion, Safety Awareness, Balance, Social Cognition, Transfers Control, Sphincter Control, Self-Care, Communication, and Endurance.Currently, she has deficits of Locomotion, Balance, Safety Awareness, Transfers Control, Self-Care, Endurance, and Communication.Pt. is now ref erred to [facility] for acute in-patient rehabilitation in order to maximize p atient's functional independence in activities of daily living, strength, ROM, and mobility.- Rehab G oal Patient has realistic goal of being discharged at assistance level 6-Danielle to reside at Home with Fam adriana/Relatives. MDM/PLAN: - Physical Therapy Gait dysfunction - to improve, our physical therapists will perform initial evaluation of pt's statu s upon admission and devise an individualized program for Gait Training, and Wheel Chair mobility Inability to transfer - to improve, our physical therapists will perform initial evaluation of pt's status upon admission and devise an individualized program for Bed mobility Need for home safety evaluation - to improve, our physical therapists will perform initial evaluatio n of pt's status upon admission and devise an individualized program for Home Evaluation Need in caregiver upon discharge - to improve, our physical therapists will perform initial evaluati on of pt's status upon admission and devise an individualized program for Caregiver Training New precaution - to improve, our physical therapists will perform initial evaluation of pt's status upon admission and devise an individualized program for Patient precaution education Poor balance - to improve, our physical therapists will perform initial evaluation of pt's status up on admission and devise an individualized program for Balance Training Poor endurance - to improve, our physical therapists will perform initial evaluation of pt's status upon admission and devise an individualized program for Endurance Training Weakness - to improve, our physical therapists will perform initial evaluation of pt's status upon a dmission and devise an individualized program for Aquatic Therapy, Neuromuscular Reeducation, and Str engthening Achieving independence - to improve, our physical therapists will perform initial evaluation of pt's status upon admission and devise an individualized program for Community Reintegration Activities - Occupational Therapy ADL deficits - to improve, our occupation therapists will perform initial evaluation of pt's status upon admission and devise an individualized program for Bathing, Bed mobility, Community Reintegratio n, Cooking, Dressing, Eating, Fine Motor Skills, Grooming, Homemaking, Kitchen Mobility, Laundry, Pat ient Education, Safety Awareness, Splinting - Positioning, Transfers(Toilet, Tub, Shower), and Wheel Chair Management Need for rn intensive care unit - to improve, our occupation therapists will perform initial evaluation of pt's status upon admission and devise an individualized program for Caregiver Training Weakness - to improve, our occupation therapists will perform initial evaluation of pt's status upon admission and devise an individualized program for Aquatic Therapy, Balance, Endurance, UE ROM, and UE strengthening - Other See attached MAR (Medication Administration Record) Glenn Ernandez.pdf See attached MAR (Medication Administration Record) - Diet Type Continue Regular - Diet - Liquid Texture Continue Regular - Tube Feed Continue N/A - Bladder care per protocol - Fall Precaution Bed alarm TABS alarm Wheel chair alarm - Skin care per protocol - Diet - Solid Texture Continue Regular - Shower allowing shower for Dementia, TBI, Stroke, or others FUNCTIONAL STATUS: UPDATED AT WEEKLY TEAM CONFERENCE - Bladder Same accident frequency: 7-Ind - No accidents in the past 7 days - Bowel Same accident frequency: 7-Ind - No accidents in the past 7 days - Walking Same score based on distance walked: 0(N/A) - Wheelchair Same score based on distance traveled: 0(N/A) Same score based on distance traveled: 3(>=150ft) FUNCTIONAL STATUS: - Self-Care A. Eating Danielle B. Grooming Paresh C. Bathing modA D. Dressing - Upper modA E. Dressing - Lower Paresh F. Toileting modA - Sphincter Control G. Bladder control modA H. Bowel control Paresh - Transfers Control I. Bed/Chair/Wheelchair maxA J. Toilet maxA K. Tub/Shower maxA - Locomotion L. Walk/Wheelchair (B) maxA M. Stairs ADNO - Communication N. Comprehension (B) Paresh O. Expression (B) Paresh - Social Cognition P. Social Interaction sup Q. Problem Solving sup R. Memory sup - Endurance Good - Balance Good - Safety Awareness Good QI SCORES: - Self-Care A. Eating 05-Setup or clean-up assistance B. Oral hygiene 05-Setup or clean-up assistance C. Toileting hygiene 03-Partial/moderate assistance E. Shower/bathe self 02-Substantial/maximal assistance F. Upper body dressing 03-Partial/moderate assistance G. Lower body dressing 02-Substantial/maximal assistance H. Putting on/taking off footwear 01-Dependent - Mobility A. Roll left and right 03-Partial/moderate assistance B. Sit to lying 02-Substantial/maximal assistance C. Lying to sitting on side of bed 02-Substantial/maximal assistance D. Sit to stand 02-Substantial/maximal assistance E. Chair/rzw-cc-[id number] transfer 02-Substantial/maximal assistance F. Toilet transfer 02-Substantial/maximal assistance G. Car transfer 88-Not attempted due to medical condition or safety concerns I. Walk 10 feet 88-Not attempted due to medical condition or safety concerns J. Walk 50 feet with two turns 88-Not attempted due to medical condition or safety concerns K. Walk 150 feet 88-Not attempted due to medical condition or safety concerns L. Walking 10 feet on uneven surfaces 88-Not attempted due to medical condition or safety concerns M. 1 step (curb) 88-Not attempted due to medical condition or safety concerns N. 4 steps 88-Not attempted due to medical condition or safety concerns O. 12 steps 88-Not attempted due to medical condition or safety concerns P. Picking up object 88-Not attempted due to medical condition or safety concerns R. Wheel 50 feet with two turns 02-Substantial/maximal assistance S. Wheel 150 feet 02-Substantial/maximal assistance - Bladder and Bowel Bladder continence 0-Always continent Bowel continence 0-Always continent - Endurance Poor - Balance Poor - Safety Awareness Fair CURRENT FUNC. DEFICITS: Self-Care, Mobility, Endurance, Balance, and Safety Awareness SIGNATURE PANEL: (PHOTOGRAPHIC PROCESS ATTENDANT)
[2019-04-10] MEDS: MAGNESIUM OXIDE 400 MG TAB PO SCH (20:10)
[2019-04-10] MEDS ORDERED: DOCUSATE NA/SENNA CONC 1 TAB PO PRN (20:28)
[2019-04-10] MEDS ORDERED: MELATONIN 3 MG TABLET PO SCH (21:00)
[2019-04-10] MEDS: ALPRAZOLAM 0.5 MG TABLET PO SCH (22:19)
--- NOTE | 2019-04-10 23:32 | PN ---
Date of Progress Note: 04/10/2019 Subjective: Patient was seen this morning for a followup. She was sitting in a wheelchair. Emotion ally, she was disturbed this morning because something happened, but denies any other specific compla ints. Objective: Vital Signs: Reviewed. HEENT: Unremarkable. Lungs: Clear to auscultation. Heart: Sounds normal. Abdomen: Soft. Bowel sounds normal. No guarding, rigidity, tenderness, distention. Extremities: No leg edema. Impression: 1.Hypertension. 2.Primary insomnia. 3.Stroke with left-sided hemiparesis. Plan: The patient's vital signs reviewed. Her blood pressure still is not well controlled, so I belen l go ahead and increase the dose of losartan 50 mg from once a day to 2 times a day. I will see her tomorrow for followup, possible discharge to go home tomorrow. JULIO/MODL Voice ID: [id number] Report ID: [id number]
[2019-04-11 07:15] VITALS: BP 132/80; TEMP 97.6
[2019-04-11] MEDS: TRIAMCINOLONE 0.1% CREAM 15GM TOP SCH (08:22)
[2019-04-11] MEDS: DULOXETINE 20 MG CAP PO SCH (08:23)
[2019-04-11] MEDS: LOSARTAN POTASSIUM 50 MG TABLET PO SCH (08:23)
--- NOTE | 2019-04-11 14:43 | FAST ---
SHIFT START DATE/TIME: 04/11/2019 07:00 (RATING CLERK) SHIFT END DATE/TIME: 04/11/2019 19:00 (RATING CLERK) NAME GLENN WALKER DATE OF : 1955 DATE OF ADMISSION: 03/11/2019 14:31 (RATING CLERK) PHONE: AGE: 63 N# [id number] GENDER: Female ENCOUNTER PHYSICIAN: Dr. Sawyer Rios M.D. 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 - Stroke 01 - Other Stroke (01.9) Intracranial Hemorrhage. Right [place] Infarct. EATING: EATING - STEP 1: Does the patient complete the activity by him/herself with no assistance (physical, verbal/nonverbal cueing, setup/clean-up)? Yes. 1. [id number] ADMISSION PERFORMANCE: Independent CODE: 06 ORAL HYGIENE: ORAL HYGIENE - STEP 1: Does the patient complete the activity by him/herself with no assistance (physical, verbal/nonverbal cueing, setup/clean-up)? Yes. 1. [id number] ADMISSION PERFORMANCE: Independent CODE: 06 TOILETING HYGIENE: TOILETING HYGIENE - STEP 1: Does the patient complete the activity by him/herself with no assistance (physical, verbal/nonverbal cueing, setup/clean-up)? No. TOILETING HYGIENE - STEP 2: Does the patient need only setup/clean-up assistance from one helper? No. TOILETING HYGIENE - STEP 3: Does the patient need only verbal/nonverbal cueing or touching/steadying/contact guard assistance fro m one helper? Yes. 1. [id number] ADMISSION PERFORMANCE: Supervision or touching assistance CODE: 04 BATHING: Not assessed/no information CODE: - DRESSING - UPPER BODY: DRESSING - UPPER BODY - STEP 1: Does the patient complete the activity by him/herself with no assistance (physical, verbal/nonverbal cueing, setup/clean-up)? No. DRESSING - UPPER BODY - STEP 2: Does the patient need only setup/clean-up assistance from one helper? No. DRESSING - UPPER BODY - STEP 3: Does the patient need only verbal/nonverbal cueing or touching/steadying/contact guard assistance fro m one helper? Yes. 1. [id number] ADMISSION PERFORMANCE: Supervision or touching assistance CODE: 04 DRESSING - LOWER BODY: DRESSING - LOWER BODY - STEP 1: Does the patient complete the activity by him/herself with no assistance (physical, verbal/nonverbal cueing, setup/clean-up)? No. DRESSING - LOWER BODY - STEP 2: Does the patient need only setup/clean-up assistance from one helper? No. DRESSING - LOWER BODY - STEP 3: Does the patient need only verbal/nonverbal cueing or touching/steadying/contact guard assistance fro m one helper? Yes. 1. [id number] ADMISSION PERFORMANCE: Supervision or touching assistance CODE: 04 PUTTING ON/TAKING OFF FOOTWEAR: FOOTWEAR - STEP 1: Does the patient complete the activity by him/herself with no assistance (physical, verbal/nonverbal cueing, setup/clean-up)? No. FOOTWEAR - STEP 2: Does the patient need only setup/clean-up assistance from one helper? No. FOOTWEAR - STEP 3: Does the patient need only verbal/nonverbal cueing or touching/steadying/contact guard assistance fro m one helper? Yes. 1. [id number] ADMISSION PERFORMANCE: Supervision or touching assistance CODE: 04 ROLL LEFT AND RIGHT: ROLL LEFT AND RIGHT - STEP 1: Does the patient complete the activity by him/herself with no assistance (physical, verbal/nonverbal cueing, setup/clean-up)? No. ROLL LEFT AND RIGHT - STEP 2: Does the patient need only setup/clean-up assistance from one helper? No. ROLL LEFT AND RIGHT - STEP 3: Does the patient need only verbal/nonverbal cueing or touching/steadying/contact guard assistance fro m one helper? Yes. 1. [id number] ADMISSION PERFORMANCE: Supervision or touching assistance CODE: 04 SIT TO LYING: SIT TO LYING - STEP 1: Does the patient complete the activity by him/herself with no assistance (physical, verbal/nonverbal cueing, setup/clean-up)? No. SIT TO LYING - STEP 2: Does the patient need only setup/clean-up assistance from one helper? No. SIT TO LYING - STEP 3: Does the patient need only verbal/nonverbal cueing or touching/steadying/contact guard assistance fro m one helper? Yes. 1. [id number] ADMISSION PERFORMANCE: Supervision or touching assistance CODE: 04 LYING TO SITTING: LYING TO SITTING ON SIDE OF BED - STEP 1: Does the patient complete the activity by him/herself with no assistance (physical, verbal/nonverbal cueing, setup/clean-up)? No. LYING TO SITTING ON SIDE OF BED - STEP 2: Does the patient need only setup/clean-up assistance from one helper? No. LYING TO SITTING ON SIDE OF BED - STEP 3: Does the patient need only verbal/nonverbal cueing or touching/steadying/contact guard assistance fro m one helper? Yes. 1. [id number] ADMISSION PERFORMANCE: Supervision or touching assistance CODE: 04 SIT TO STAND: SIT TO STAND - STEP 1: Does the patient complete the activity by him/herself with no assistance (physical, verbal/nonverbal cueing, setup/clean-up)? No. SIT TO STAND - STEP 2: Does the patient need only setup/clean-up assistance from one helper? No. SIT TO STAND - STEP 3: Does the patient need only verbal/nonverbal cueing or touching/steadying/contact guard assistance fro m one helper? Yes. 1. [id number] ADMISSION PERFORMANCE: Supervision or touching assistance CODE: 04 TRANSFERS: BED, CHAIR: CHAIR/RWN-SI-OYFLS TRANSFER - STEP 1: Does the patient complete the activity by him/herself with no assistance (physical, verbal/nonverbal cueing, setup/clean-up)? No. CHAIR/[id number] TRANSFER - STEP 2: Does the patient need only setup/clean-up assistance from one helper? No. CHAIR/DPR-AA-ZKLEN TRANSFER - STEP 3: Does the patient need only verbal/nonverbal cueing or touching/steadying/contact guard assistance fro m one helper? Yes. 1. [id number] ADMISSION PERFORMANCE: Supervision or touching assistance CODE: 04 TRANSFER TOILET: TOILET TRANSFER - STEP 1: Does the patient complete the activity by him/herself with no assistance (physical, verbal/nonverbal cueing, setup/clean-up)? No. TOILET TRANSFER - STEP 2: Does the patient need only setup/clean-up assistance from one helper? Yes. 1. [id number] ADMISSION PERFORMANCE: Setup or clean-up assistance CODE: 05 TRANSFERS: CAR: Not assessed/no information CODE: - WALK 10 FEET: Not assessed/no information CODE: - 1 STEP (CURB): Not assessed/no information CODE: - PICKING UP OBJECT: Not assessed/no information CODE: - DOES THE PATIENT USE A WHEELCHAIR/SCOOTER? Q1. DOES THE PATIENT USE A WHEELCHAIR/SCOOTER?: Yes CODE: 1 WHEEL 50 FEET WITH TWO TURNS: WHEEL 50 FEET WITH TWO TURNS - STEP 1: Does the patient complete the activity by him/herself with no assistance (physical, verbal/nonverbal cueing, setup/clean-up)? No. WHEEL 50 FEET WITH TWO TURNS - STEP 2: Does the patient need only setup/clean-up assistance from one helper? Yes. 1. [id number] ADMISSION PERFORMANCE: Setup or clean-up assistance CODE: 05 INDICATE THE TYPE OF WHEELCHAIR/SCOOTER USED: RR1. INDICATE THE TYPE OF WHEELCHAIR/SCOOTER USED.: Manual CODE: 1 WHEEL 150 FEET: Not assessed/no information CODE: - INDICATE THE TYPE OF WHEELCHAIR/SCOOTER USED: CODE: EXPR BLADDER AND BOWEL: H350. BLADDER CONTINENCE (3-DAY ASSESSMENT PERIOD): Incontinent daily (at least once a day) CODE: 3 H400. BOWEL CONTINENCE (3-DAY ASSESSMENT PERIOD): Always continent CODE: 0 SIGNATURE PANEL: The following modified sections: 1. [id number] Admission Performance, 1. [id number] Admission Performance, 1. PC5602D Admission Performance, 1. YM4736J Admission Performance, 1. LZ7345r Admission Performance, 1. GB1454r Admission Performance, 1. IL1418k Admission Performance, 1. PG6108a Admission Performance , 1. OD4097b Admission Performance, 1. VY5172c Admission Performance, 1. DX4274y Admission Performanc e, 1. UT1037x Admission Performance, 1. CP6601s Admission Performance, 1. ZI0547P Admission Performan ce, 1. DN2023I Admission Performance, 1. GE0659X Admission Performance, 1. AA0577E Admission Performa nce, 1. EU7288L Admission Performance, 1. ZT0206F Admission Performance, 1. KP7107H Admission Perform ance, 1. YS2666Z Admission Performance, Q1. Does the patient use a wheelchair/scooter?, 1. WI0501P Ad mission Performance, RR1. Indicate the type of wheelchair/scooter used., Code, H350. Bladder Continen ce (3-day assessment period), H400. Bowel Continence (3-day assessment period) were [electronically] signed by Hilda Ayers C.N.A. on WedApr 11 2019 14:42:15 GMT-0600 (Central Standard Time)
--- NOTE | 2019-04-11 18:08 | R.DS ---
FACILITY [facility] MR# [id number] NAME GLENN ERNANDEZ ADDRESS [address] [place] [address] [address] [id number] PHONE DATE OF 1955 AGE 63 SSN# [id number] GENDER Female DEXTERITY Right-handed MARITAL STATUS RACE ENCOUNTER PHYSICIAN Dr. Sawyer Rios M.D. REFERRING DOCTOR Graciela Sal REFERRING FACILITY [facility] DISCHARGE DIAGNOSIS: - Brain Dysfunction 02 - Non-traumatic Brain Dysfunction (02.1) Brain Mass. - Stroke 01 - Other Stroke (01.9) Intracranial Hemorrhage. Right [place] Infarct. 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 NURSING: - Shower allowing shower - Bladder care per protocol - Skin care per protocol PRECAUTIONS: - Fall Precaution Bed alarm TABS alarm Wheel chair alarm ACTIVITIES OOB only with supervision THERAPIES: - Occupational Therapy Cognitive Retraining Visual Perceptual Training - Dietary and Nutrition Adequate Nutrition Nutritional Education Nutritional Supplements - Speech Therapy Cognitive Training Expressive Language Skills Memory Strategies Receptive Language Skills Speech Intelligibility Training HISTORY OF PRESENT ILLNESS: Pt. is a 63 yo Right-handed female.On 01/25/2019 she was admitted to [facility] with diagnosis Brain Mass.Her impairment category is Brain Dysfunction 02 - Non-trau matic Brain Dysfunction (02.1).Pre-morbidly, Pt. was independent/mod-I in Locomotion, Safety Awarenes s, Balance, Social Cognition, Transfers Control, Sphincter Control, Self-Care, Communication, and End urance; and she had good Locomotion, Safety Awareness, Balance, Social Cognition, Transfers Control, Sphincter Control, Self-Care, Communication, and Endurance.Currently, she has deficits of Locomotion, Balance, Safety Awareness, Transfers Control, Self-Care, Endurance, and Communication.Pt. is now ref erred to [facility] for acute in-patient rehabilitation in order to maximize p atient's functional independence in activities of daily living, strength, ROM, and mobility.- Rehab G oal Patient has realistic goal of being discharged at assistance level 6-aDnielle to reside at Home with Fam adriana/Relatives. Glenn Ernandez is a 63 year old female that lives alone in a single nuzhat home. She was independent with all ADLs and self care. 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 Postoperative she had infarct on the right JULIO territory and possible amyloid angiopathy and was discharge to Inpatient rehab. On 03/05/2019, she complained of headache and feeling bad and Ct Scan revealed that she had slightly increased in the right to left midline shift in the region of the right frontal lobe and was admitted to [facility] and treated. She is now medically stable but in need of 24-hour nursing, doctor supervision and oversite while receiving participate in 3hours of therapy a day/15 hours per week and receive care with an intensive interdisciplinary approach.HOSPITAL COURSE: DIET - LIQUID TEXTURE: On 03/09/2019 Pt was upgraded to Regular Diet - Liquid Texture. DIET - SOLID TEXTURE: On 03/09/2019 Pt was upgraded to Regular Diet - Solid Texture. DIET TYPE: On 03/09/2019 Pt was upgraded to Regular Diet Type. FALL PRECAUTION: On 03/09/2019 the following precautions were added for the patient: Fall Precaution - Bed alarm, Fall Precaution - TABS alarm, and Fall Precaution - Wheel chair alarm. On 03/13/2019 the following precautions were added for the patient: Fall Precaution - Bed alarm, Fal l Precaution - TABS alarm, and Fall Precaution - Wheel chair alarm. The following precautions were removed for the patient: Fall Precaution - Bed alarm, Fall Precaution - TABS alarm, Fall Precaution - Wheel chair alarm, Fall Precaution - Bed alarm, Fall Precaution - T ABS alarm, and Fall Precaution - Wheel chair alarm. TUBE FEED: On 03/09/2019 Pt was changed to N/A Tube Feed. DISCHARGE PHYSICAL EXAM - Gen Alert and awake Lying in bed No apparent distress Oriented to: person, time, and place - Skin No breakdown Normacephalic Scalp surgical site intact - Eyes No abnormalities - ENMT No abnormalities - Neck No abnormalities - CVS RRR - Chest No abnormalities - Resp Clear to auscultation - Abd + bowel sounds - GI Soft Deferred - No abnormalities - Ext no edema - MSK 3-4+/5 weakness in both lower extremities. - Neuro Diffuse weakness, incoordination and unsteady gait - Psych Moderate depression. FUNCTIONAL STATUS: - Self-Care A. Eating 6-Danielle B. Grooming 6-Danielle C. Bathing 5-sup D. Dressing - Upper 5-sup E. Dressing - Lower 5-sup F. Toileting 5-sup - Sphincter Control G. Bladder control 5-sup H. Bowel control 5-sup - Transfers Control I. Bed/Chair/Wheelchair 5-sup J. Toilet 5-sup K. Tub/Shower 5-sup - Locomotion L. Walk/Wheelchair (B) 4-Paresh M. Stairs 4-Paresh - Communication N. Comprehension (B) 6-Danielle O. Expression (B) 6-Danielle - Social Cognition P. Social Interaction 6-Danielle Q. Problem Solving 6-Danielle R. Memory 6-Danielle - Endurance Good - Balance Good - Safety Awareness Good QI SCORES: - Self-Care A. Eating 05-Setup or clean-up assistance B. Oral hygiene 05-Setup or clean-up assistance C. Toileting hygiene 03-Partial/moderate assistance E. Shower/bathe self 02-Substantial/maximal assistance F. Upper body dressing 03-Partial/moderate assistance G. Lower body dressing 02-Substantial/maximal assistance H. Putting on/taking off footwear 01-Dependent - Mobility A. Roll left and right 03-Partial/moderate assistance B. Sit to lying 02-Substantial/maximal assistance C. Lying to sitting on side of bed 02-Substantial/maximal assistance D. Sit to stand 02-Substantial/maximal assistance E. Chair/lpc-jd-esvey transfer 02-Substantial/maximal assistance F. Toilet transfer 02-Substantial/maximal assistance G. Car transfer 88-Not attempted due to medical condition or safety concerns I. Walk 10 feet 88-Not attempted due to medical condition or safety concerns J. Walk 50 feet with two turns 88-Not attempted due to medical condition or safety concerns K. Walk 150 feet 88-Not attempted due to medical condition or safety concerns L. Walking 10 feet on uneven surfaces 88-Not attempted due to medical condition or safety concerns M. 1 step (curb) 88-Not attempted due to medical condition or safety concerns N. 4 steps 88-Not attempted due to medical condition or safety concerns O. 12 steps 88-Not attempted due to medical condition or safety concerns P. Picking up object 88-Not attempted due to medical condition or safety concerns R. Wheel 50 feet with two turns 02-Substantial/maximal assistance S. Wheel 150 feet 02-Substantial/maximal assistance - Bladder and Bowel Bladder continence 0-Always continent Bowel continence 0-Always continent - Endurance Poor - Balance Poor - Safety Awareness Fair DISCHARGE PLAN, FOLLOW UP CARE PROVISIONS: - Estimated Length of Stay (days) 13. - Consensus on plan Discharge plan has been discussed with primary caregiver. Patient/Family is in agreement with the gavino n. Primary caregiver is in agreement with the plan. - Patient/Family Goals Return home with assistance. - Planned Living Setting Upon Discharge Home, to live with Family/Relatives. Transitional Living. 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
--- NOTE | 2019-04-12 01:40 | DS ---
Date of Discharge: 04/11/2019 Disposition: Discharged to go home. Physical Examination: HEENT: Unremarkable. Lungs: Clear to auscultation. Heart: Heart sounds normal. Abdomen: Soft. Bowel sounds normal. No guarding, rigidity, tenderness, or distention. Extremities: No leg edema. Discharge Medications And Instructions: Melatonin 5 mg p.o. at bedtime, alprazolam 0.5 mg at bedtime , losartan 50 mg p.o. 2 times a day. Followup: Follow up at my office next week. Hospital Course: This is 63-year-old very pleasant female patient admitted to the hospital to rehab floor for rehab therapy. Please see dictated H and P for more information. Patient was admitted to the hospital to rehab floor. She received physical therapy under guidance of Dr. Rios. Her medi myriam condition remained stable except she had urinary tract infection, which was treated with oral ant ibiotics. She was on amlodipine as antihypertensive medication after she developed leg edema and senia h over lower extremity. Her amlodipine was discontinued. Venous Doppler of leg was negative for DVT . She was started on losartan 25 mg daily, and over period of this hospitalization, we increased the dose up to 50 mg 2 times a day and this last change was made yesterday. Every few days, we did have to make some change in the blood pressure medication dose because of blood pressure was not well con trolled. She has done very well with physical therapy and she was determined stable for discharge. Medically, she is stable for discharge. Her rash and leg swelling have completely resolved and I bel ieve that this could have been very well due to side effect from amlodipine and she was made aware of that. She had a CAT scan of the head done, which was negative for any acute changes. Midline shift and cerebral edema type of problems that were noted on prior CAT scan have resolved. Final Diagnoses: 1.Stroke with left-sided hemiparesis. 2.Hypertension. 3.Primary insomnia. 4.Anemia. 5.Urinary tract infection. 6.Hyperlipidemia. JULIO/MODL Voice ID: [id number] Report ID: [id number]
== END 2019-04-11 15:00 | disposition home health service (06) | DRG 56 ==
LOC: 5TH 19:01
PROVIDERS: ADMIT Internal Medicine; ATTEND Internal Medicine
DX: I69.954 Hemiplegia and hemiparesis following unspecified cerebrovascular disease affecting left non-dominant side (principal); G93.6 Cerebral edema; N39.0 Urinary tract infection, site not specified; D32.0 Benign neoplasm of cerebral meninges; I10 Essential (primary) hypertension; E78.5 Hyperlipidemia, unspecified; M81.0 Age-related osteoporosis without current pathological fracture; G47.00 Insomnia, unspecified; R53.81 Other malaise; F32.9 Major depressive disorder, single episode, unspecified; L30.9 Dermatitis, unspecified
CPT/HCPCS: 36415; 70450; 80048; 81001; 82040; 83735; 84134; 85025; 87077; 87086; 87088; 87186; 92507; 92523; 93970; 97110; 97112; 97116; 97127; 97161; 97530; 97542; J1650

== ENCOUNTER 2020-12-09 14:56 | Emergency (ER) | payer OTHER ==
--- NOTE | 2020-12-09 15:59 | RAD REPORT ---
EXAM DESCRIPTION: CT - Head Brain Wo Cont - 12/09/2020 3:50 pm CLINICAL HISTORY: Dizziness;Weakness Headache, drowsiness COMPARISON: Head Brain Wo Cont dated 03/24/2019; Head Brain Wo Cont dated 03/05/2019 TECHNIQUE: All CT scans are performed using dose optimization technique as appropriate and may inclu de automated exposure control or mA/KV adjustment according to patient size. FINDINGS: No intracranial hemorrhage, hydrocephalus or extra-axial fluid collection.Prominent gliosi s by the right frontal lobe. The paranasal sinuses and mastoids are clear. Right frontal craniotomy is noted. Mild vertebral ather osclerosis. IMPRESSION: No acute intracranial abnormality.
[2020-12-09 16:30] LABS: Protime INR 1.13
[2020-12-09 16:32] LABS: Absolute Lymphocytes (CBC) 3.6 K/uL (0.7-4.9); Basophils % 0.1 % (0-1.3); Hematocrit 38.8 % (36.0-45.0); Lymphocytes % 34.9 % (15.3-44.8); MPV 10.1 fL (7.6-11.3); RBC Red Blood Cell Count 4.16 M/uL (3.86-4.86)
[2020-12-09 16:44] LABS: ALT/SGPT 26 U/L (12-78); AST/SGOT 12 U/L (15-37); Albumin 3.8 g/dL (3.4-5.0); Alkaline Phosphatase 65 U/L (45-117); BUN Blood Urea Nitrogen 23 mg/dL (7-18); Bicarbonate 30 mmol/L (21-32); Bilirubin Direct < 0.1 mg/dL (0-0.2); Bilirubin Total 0.3 mg/dL (0.2-1.0); Glucose Level 92 mg/dL (74-106); Magnesium 2.5 mg/dL (1.8-2.4); NT PRO-BNP 218 pg/mL (<125); Potassium 3.6 mmol/L (3.5-5.1); Protein, Total 8.3 g/dL (6.4-8.2); Sodium Level 144 mmol/L (136-145); Troponin (Emerg Dept Use Only) < 0.02 ng/mL (0.0-0.045)
[2020-12-09] MEDS ORDERED: FOLIC ACID 5 MG/ML VIAL ONE (16:44)
[2020-12-09] MEDS ORDERED: NA CHLORIDE 0.9% 1,000 ML ONE (16:44)
[2020-12-09] MEDS ORDERED: NA CHLORIDE 0.9% 50 ML ONE (16:44)
--- NOTE | 2020-12-09 17:19 | RAD REPORT ---
EXAM DESCRIPTION: MRI - Brain W/Wo Cont - 12/09/2020 5:00 pm CLINICAL HISTORY: dizziness Headache, drowsiness, CVA symptomology COMPARISON: MRA Head Wo Cont dated 12/09/2020; Brain W/Wo Cont dated 05/16/2020 TECHNIQUE: Multi-sequence, multiplanar MR imaging of the brain was performed with contrast. FINDINGS: Postsurgical changes are present involving the right frontal lobe. Moderate adjacent FLAIR and T2 hyperintensity is seen in the right frontal lobe.. Mild to moderate periventricular chronic m icrovascular ischemia is seen. DWI is negative for acute CVA. The midline structures are normally formed. Mastoid air cells and paranasal sinuses are clear. No new or progressive was enhancement seen. Subtle enhancement along the margin of the surgical cavit y shows no real change since May 2020. IMPRESSION: No acute intracranial finding is observed. No acute CVA. Postsurgical changes right frontal lobe are again seen without suspicious change since May 2020.
--- NOTE | 2020-12-09 17:21 | RAD REPORT ---
EXAM DESCRIPTION: MRI - MRA Head Wo Cont - 12/09/2020 4:59 pm CLINICAL HISTORY: DIZZINESS CVA COMPARISON: Head Brain Wo Cont dated 12/09/2020 FINDINGS: 3D noncontrast [id number] MR angiography of the little traverse of [place] was performed. No aneurysm, flow-limiting stenosis or vascular malformation is seen. Forward flow seen in codominant vertebral arteries. The visualized dural venous sinuses appear patent. IMPRESSION: No significant flow abnormality of the little traverse of [place] is identified.
--- NOTE | 2020-12-09 17:24 | RAD REPORT ---
EXAM DESCRIPTION: RAD - Chest Single View - 12/09/2020 5:11 pm CLINICAL HISTORY: COUGH Chest pain. COMPARISON: Chest Single View dated 01/24/2019; CHEST SINGLE VIEW dated 04/10/2010; CHEST PA AND LAT 2 VIEW dated 07/16/2008 FINDINGS: Portable technique limits examination quality. The lungs are grossly clear. The heart is normal in size. No displaced fractures. IMPRESSION: No acute intrathoracic process suspected.
--- NOTE | 2020-12-09 17:27 | RAD REPORT ---
EXAM DESCRIPTION: MRI - MRA Neck W/Wo Cont - 12/09/2020 5:00 pm CLINICAL HISTORY: dizziness Headache, drowsiness, CVA symptomology COMPARISON: MRA Head Wo Cont dated 12/09/2020 FINDINGS: Contrast enhance 2D [id number] MR angiography of the neck vessels was performed. A left-sided aortic arch is noted with normal branching pattern. Both subclavian arteries and common carotid arteries are patent. Both internal carotid arteries are widely patent. Antegrade flow seen in both vertebral arteries. IMPRESSION: No significant flow abnormality suspected of the neck vessels.
--- NOTE | 2020-12-09 17:47 | EDPHYS ---
Physician Documentation [facility] Name: Bria Ernandez Age: 65 yrs Sex: Female : 1955 Arrival Date: 12/09/2020 Time: 14:57 Bed 5 Private MD: KARLY Physician Ruiz Pleitez HPI: 12/09 17:29 This 65 yrs old Female presents to ER via Wheelchair with complaints of suresh Headache. 17:29 The patient complains of pain to the top of head, forehead, left frontal area, left suresh side of the back of head, left occipital area, left base of the skull, right frontal area, right side of the back of head, right occipital area and right base of the skull. The patient describes the headache as aching. Onset: The symptoms/episode began/occurred just prior to arrival. Associated signs and symptoms: Pertinent positives: dizziness. Severity of symptoms: At its worst the pain was mild, in the emergency department the pain is unchanged. Headache History: Denies prior headaches. The symptoms are alleviated by nothing. the symptoms are aggravated by nothing. The patient has experienced similar episodes in the past, a few times. Historical: - Allergies: 15:02 No Known Allergies; aa5 - PMHx: 15:02 CVA; Hypertension; aa5 15:02 Craniotomy; Brain Tumor; aa5 - Immunization history:: Client reports receiving the 2nd dose of the Covid vaccine. - Social history:: Smoking status: Patient denies any tobacco usage or history of. - Family history:: not pertinent. ROS: 17:29 Constitutional: Negative for fever, chills, and weight loss, Eyes: Negative for injury, suresh pain, redness, and discharge, ENT: Negative for injury, pain, and discharge, Neck: Negative for injury, pain, and swelling, Cardiovascular: Negative for chest pain, palpitations, and edema, Respiratory: Negative for shortness of breath, cough, wheezing, and pleuritic chest pain, Abdomen/GI: Negative for abdominal pain, nausea, vomiting, diarrhea, and constipation, Back: Negative for injury and pain, : Negative for injury, bleeding, discharge, and swelling, MS/Extremity: Negative for injury and deformity, Skin: Negative for injury, rash, and discoloration, Psych: Negative for depression, anxiety, suicide ideation, homicidal ideation, and hallucinations, Allergy/Immunology: Negative for hives, rash, and allergies, Endocrine: Negative for neck swelling, polydipsia, polyuria, polyphagia, and marked weight changes, Hematologic/Lymphatic: Negative for swollen nodes, abnormal bleeding, and unusual bruising. 17:29 Neuro: Positive for dizziness, weakness. Exam: 17:29 Constitutional: This is a well developed, well nourished patient who is awake, alert, suresh and in no acute distress. Head/Face: Normocephalic, atraumatic. Eyes: Pupils equal round and reactive to light, extra-ocular motions intact. Lids and lashes normal. Conjunctiva and sclera are non-icteric and not injected. Cornea within normal limits. Periorbital areas with no swelling, redness, or edema. ENT: Nares patent. No nasal discharge, no septal abnormalities noted. Tympanic membranes are normal and external auditory canals are clear. Oropharynx with no redness, swelling, or masses, exudates, or evidence of obstruction, uvula midline. Mucous membranes moist. Neck: Trachea midline, no thyromegaly or masses palpated, and no cervical lymphadenopathy. Supple, full range of motion without nuchal rigidity, or vertebral point tenderness. No Meningismus. Chest/axilla: Normal chest wall appearance and motion. Nontender with no deformity. No lesions are appreciated. Cardiovascular: Regular rate and rhythm with a normal S1 and S2. No gallops, murmurs, or rubs. Normal PMI, no JVD. No pulse deficits. Respiratory: Lungs have equal breath sounds bilaterally, clear to auscultation and percussion. No rales, rhonchi or wheezes noted. No increased work of breathing, no retractions or nasal flaring. Abdomen/GI: Soft, non-tender, with normal bowel sounds. No distension or tympany. No guarding or rebound. No evidence of tenderness throughout. Back: No spinal tenderness. No costovertebral tenderness. Full range of motion. Female : Normal external genitalia. Skin: Warm, dry with normal turgor. Normal color with no rashes, no lesions, and no evidence of cellulitis. MS/ Extremity: Pulses equal, no cyanosis. Neurovascular intact. Full, normal range of motion. Neuro: Awake and alert, GCS 15, oriented to person, place, time, and situation. Cranial nerves II-XII grossly intact. Motor strength 5/5 in all extremities. Sensory grossly intact. Cerebellar exam normal. Normal gait. Psych: Awake, alert, with orientation to person, place and time. Behavior, mood, and affect are within normal limits. 17:29 Neuro: Orientation: is normal, appropriate for stated age, no acute changes, Mentation: appropriate for stated age, Memory: appropriate for stated age, no acute changes, Cranial nerves: grossly normal, is grossly normal based on the patient's age, no acute changes, Cerebellar function: is grossly normal, is grossly normal based on the patient's age, no acute changes, Motor: is grossly normal based on the patient's age, no acute changes, moves all fours, strength is normal, strength is 5/5 in all extremities, Sensation: is normal, no obvious gross deficits, appropriate no acute changes, Gait: not tested. Deep tendon reflexes are 2+ (normal) in the bilateral brachioradialis, bicep, tricep and patellar and Achilles tendons, Babinski testing is normal, seizure activity, is not displayed by the patient. 17:47 ECG was reviewed by the Attending Physician. [facility] Vital Signs: 15:03 BP 156 / 72; Pulse 68; Resp 16 S; Temp 97.3(TE); Pulse Ox 100% on R/A; Weight 52.16 kg aa5 (R); Height 5 ft. 2 in. (157.48 cm) (R); 17:40 BP 156 / 60; Pulse 60; Resp 14; Pulse Ox 100% on R/A; Pain 0/10; tw5 18:43 BP 139 / 81; Pulse 62; Resp 14; Temp 98.2(O); Pulse Ox 99% ; Pain 0/10; tw5 15:03 Body Mass Index 21.03 (52.16 kg, 157.48 cm) aa5 NIH Stroke Scale Scores: 17:29 NIHSS Score: 0 suresh Kingsford Coma Score: 17:43 Eye Response: spontaneous(4). Verbal Response: oriented(5). Motor Response: obeys [facility] commands(6). Total: 15. MDM: 15:21 Patient medically screened. suresh 17:43 Differential diagnosis: cerebral vascular accident, hypertensive headache, suresh hyponatremia, migraine, sinusitis, subarachnoid bleed, temporal arteritis, tension headache, trigeminal neuralgia, uremia. Data reviewed: vital signs, nurses notes, lab test result(s), EKG, radiologic studies, CT scan, MRI, plain films. Data interpreted: cargo router: rate is 60 beats/min, rhythm is regular, Pulse oximetry: on room air is 100 %. Test interpretation: by ED physician or midlevel provider: ECG, plain radiologic studies. Counseling: I had a detailed discussion with the patient and/or guardian regarding: the historical points, exam findings, and any diagnostic results supporting the discharge/admit diagnosis, lab results, radiology results, the need for outpatient follow up, a family practitioner, a neurologist. 12/09 15:23 Order name: Basic Metabolic Panel; Complete Time: 16:50 [facility] 12/09 15:23 Order name: CBC with Diff; Complete Time: 16:50 [facility] 12/09 15:23 Order name: LFT's; Complete Time: 16:50 [facility] 12/09 15:23 Order name: Magnesium; Complete Time: 16:50 [facility] 12/09 15:23 Order name: NT PRO-BNP; Complete Time: 16:50 [facility] 12/09 15:23 Order name: PT-INR; Complete Time: 16:50 [facility] 12/09 15:23 Order name: Troponin (emerg Dept Use Only); Complete Time: 16:50 [facility] 12/09 15:23 Order name: XRAY Chest (1 view); Complete Time: 17:29 [facility] 12/09 15:23 Order name: CT Head Brain wo Cont; Complete Time: 16:50 [facility] 12/09 16:24 Order name: MRA Head Wo Cont; Complete Time: 17:29 [facility] 12/09 16:26 Order name: Brain W/Wo Cont; Complete Time: 17:29 [facility] 12/09 16:38 Order name: CREATININE WHOLE BLOOD; Complete Time: 16:50 [facility] 12/09 15:23 Order name: EKG; Complete Time: 15:24 [facility] 12/09 15:23 Order name: Cardiac monitoring; Complete Time: 17:30 [facility] 12/09 15:23 Order name: EKG - Nurse/Tech; Complete Time: 17:30 [facility] 12/09 15:23 Order name: IV Saline Lock; Complete Time: 17:30 [facility] 12/09 15:23 Order name: Labs collected and sent; Complete Time: 17:30 [facility] 12/09 15:23 Order name: O2 Per Protocol; Complete Time: 17:30 suresh 12/09 15:23 Order name: O2 Sat Monitoring; Complete Time: 17:30 suresh 12/09 16:26 Order name: MRA Neck W/Wo Cont; Complete Time: 17:29 EDMS EC:47 Rate is 67 beats/min. Rhythm is regular. QRS [place] is Normal. MI interval is normal. QRS suresh interval is normal. QT interval is normal. No Q waves. T waves are Normal. No ST changes noted. Clinical impression: Normal ECG and No evidence of ischemia. Interpreted by me. Reviewed by me. Administered Medications: 17:28 Drug: foLIC Acid 1 mg Route: IVPB; Site: right antecubital; tw5 17:28 Drug: NS 0.9% 1000 ml Route: IV; Rate: 1 bolus; Site: right antecubital; tw5 17:39 Drug: Aspirin Chewable Tablet 162 mg Route: PO; tw5 Disposition Summary: 12/09/20 17:46 Discharge Ordered Location: Home suresh Problem: new suresh Symptoms: have improved suresh Condition: Stable suresh Diagnosis - Dizziness and giddiness suresh - Headache suresh Followup: suresh - With: Private Physician - When: 2 - 3 days - Reason: Recheck today's complaints, Continuance of care, Re-evaluation by your physician Followup: suresh - With: Sawyer Rios MD - When: 2 - 3 days - Reason: Recheck today's complaints, Re-evaluation by your physician Discharge Instructions: - Discharge Summary Sheet suresh - Dizziness suresh - Aspirin and Your Heart suresh - Dizziness, [id number] suresh Forms: - Medication Reconciliation Form suresh - Thank You Letter suresh - Antibiotic Education suresh - Prescription Opioid Use suresh Prescriptions: - Folic Acid 1 mg Oral Tablet - take 1 tablet by ORAL route once daily; 30 tablet; Refills: 0, Product suresh Selection Permitted NIH Stroke Scale - NIH Stroke Score Date: 12/09/2020 Time: 17:29 Total Score = 0 1a. Level of Consciousness (LOC) - 0(Alert) 1b. Level of Consciousness (LOC) (Month \T\ Age) - 0(Both) 1c. LOC Commands (Open \T\ Closes Eyes/Cracking Machine Operator) - 0(Both) 2. Best Gaze (Lateral Gaze Paresis) - 0(Normal) 3. Visual Field Loss - 0(No visual loss) 4. Facial Palsy - 0(Normal) 5a. Left Arm: Motor (10-second hold) - 0(No drift) 5b. Right Arm: Motor (10-second hold) - 0(No drift) 6a. Left Leg: Motor (5-second hold - always test supine) - 0(No drift) 6b. Right Leg: Motor (5-second hold - always test supine) - 0(No drift) 7. Limb Ataxia (finger/nose \T\ heel/whitehead - test with eyes open) - 0(Absent) 8. Sensory Loss (pinprick arms/legs/face) - 0(Normal) 9. Best Language: Aphasia (description/naming/reading) - 0(No aphasia) 10. Dysarthria (speech clarity - read or repeat words) - 0(Normal) 11. Extinction and Inattention (visual/tactile/auditory/spatial/personal) - 0(No abnormality) Initials: suresh Signatures: Dispatcher [employer] Ruiz Hernandez MD MD cha Calderon, Audri RN RN aa5 [place] 5 Corrections: (The following items were deleted from the chart) 16:24 15:24 MR STROKE PROTOCOL+MRI.RAD.BRZ ordered. EDMS EDMS
--- NOTE | 2020-12-09 17:47 | ER ---
Nurse's Notes [facility] Name: Bria Ernandez Age: 65 yrs Sex: Female : 1955 Arrival Date: 12/09/2020 Time: 14:57 Bed 5 Private MD: Diagnosis: Dizziness and giddiness;Headache Presentation: 12/09 15:03 Chief complaint: Patient states: "I feel like the right side of my head like there is aa5 air and my right leg is weak and it started a few days ago". Pt reports fall November 28, denies head injury. Coronavirus screen: At this time, the client does not indicate any symptoms associated with coronavirus-19. Ebola Screen: Patient negative for fever greater than or equal to 101.5 degrees Fahrenheit, and additional compatible Ebola Virus Disease symptoms. Initial Sepsis Screen: Does the patient meet any 2 criteria? No. Patient's initial sepsis screen is negative. Does the patient have a suspected source of infection? No. Patient's initial sepsis screen is negative. Risk Assessment: Do you want to hurt yourself or someone else? Patient reports no desire to harm self or others. Onset of symptoms was November 2020. 15:03 Method Of Arrival: Wheelchair aa5 15:03 Acuity: NED 3 aa5 Triage Assessment: 18:45 General: Appears in no apparent distress. Pain: Pain Pain began 2-3 days ago. Also tw5 complains of no other associated symptoms. Historical: - Allergies: 15:02 No Known Allergies; aa5 - PMHx: 15:02 CVA; Hypertension; aa5 15:02 Craniotomy; Brain Tumor; aa5 - Immunization history:: Client reports receiving the 2nd dose of the Covid vaccine. - Social history:: Smoking status: Patient denies any tobacco usage or history of. - Family history:: not pertinent. Screenin:40 Abuse screen: Denies threats or abuse. Denies injuries from another. Nutritional tw5 screening: No deficits noted. Tuberculosis screening: No symptoms or risk factors identified. Fall Risk None identified. Assessment: 17:40 General: Appears in no apparent distress. Behavior is cooperative, anxious. Pain: tw5 Denies pain. Neuro: Level of Consciousness is awake, alert, obeys commands, Oriented to person, place, time, situation, Moves all extremities. Full function in bilateral arm(s) leg(s) Speech is normal, Facial symmetry appears normal, Intact. Cardiovascular: Reports None Heart tones S1 S2 present Capillary refill < 3 seconds Pulses are all present. Respiratory: Airway is patent Trachea midline Respiratory effort is even, labored, Respiratory pattern is regular. 17:40 General: Reports she has been having some weakness mostly on her right side and a tw5 pressure in her head. This all started several days ago. Vital Signs: 15:03 BP 156 / 72; Pulse 68; Resp 16 S; Temp 97.3(TE); Pulse Ox 100% on R/A; Weight 52.16 kg aa5 (R); Height 5 ft. 2 in. (157.48 cm) (R); 17:40 BP 156 / 60; Pulse 60; Resp 14; Pulse Ox 100% on R/A; Pain 0/10; tw5 18:43 BP 139 / 81; Pulse 62; Resp 14; Temp 98.2(O); Pulse Ox 99% ; Pain 0/10; tw5 15:03 Body Mass Index 21.03 (52.16 kg, 157.48 cm) aa5 Bliss Coma Score: 17:43 Eye Response: spontaneous(4). Verbal Response: oriented(5). Motor Response: obeys suresh commands(6). Total: 15. NIH Stroke Scale Scores: 17:29 NIHSS Score: 0 suresh ED Course: 14:57 Patient arrived in ED. as 15:02 Arm band placed on. aa5 15:04 Triage completed. aa5 15:21 Ruiz Pleitez MD is Attending Physician. [facility] 15:22 Malachi Manzano PA is PHCP. jmm 15:51 CT Head Brain wo Cont In Process Unspecified. EDMS 15:55 Enrique Jaquez, DUC is Primary Nurse. jd3 16:40 MRA Neck W/Wo Cont Sent. ch5 16:40 Brain W/Wo Cont Sent. ch5 16:40 MRA Head Wo Cont Sent. ch5 17:00 MRA Head Wo Cont In Process Unspecified. EDMS 17:01 Brain W/Wo Cont In Process Unspecified. EDMS 17:01 MRA Neck W/Wo Cont In Process Unspecified. EDMS 17:10 XRAY Chest (1 view) In Process Unspecified. EDMS 17:40 No apparent distress. Awaiting lab results. tw5 17:40 Patient has correct armband on for positive identification. Bed in low position. Call tw5 light in reach. Side rails up X 1. front desk monitor on. Pulse ox on. NIBP on. Door closed. Noise minimized. Lights dimmed. Moved to private room. Warm blanket given. PO fluids given. Verbal reassurance given. 17:40 IV is intact. tw5 17:45 Sawyer Rios MD is Referral Physician. suresh 18:45 IV discontinued, intact, bleeding controlled, No redness/swelling at site. Pressure tw5 dressing applied. Administered Medications: 17:28 Drug: foLIC Acid 1 mg Route: IVPB; Site: right antecubital; tw5 17:28 Drug: NS 0.9% 1000 ml Route: IV; Rate: 1 bolus; Site: right antecubital; tw5 17:39 Drug: Aspirin Chewable Tablet 162 mg Route: PO; tw5 Outcome: 17:46 Discharge ordered by . suresh 18:43 Discharged to home via wheelchair, with family. tw5 18:43 Condition: stable 18:43 Discharge instructions given to patient, family, Instructed on discharge instructions, medication usage, Demonstrated understanding of instructions, follow-up care, Prescriptions given X 1. 18:45 Patient left the ED. tw5 NIH Stroke Scale - NIH Stroke Score Date: 12/09/2020 Time: 17:29 Total Score = 0 1a. Level of Consciousness (LOC) - 0(Alert) 1b. Level of Consciousness (LOC) (Month \\T\\ Age) - 0(Both) 1c. LOC Commands (Open \\T\\ Closes Eyes/Station Engineer Chief) - 0(Both) 2. Best Gaze (Lateral Gaze Paresis) - 0(Normal) 3. Visual Field Loss - 0(No visual loss) 4. Facial Palsy - 0(Normal) 5a. Left Arm: Motor (10-second hold) - 0(No drift) 5b. Right Arm: Motor (10-second hold) - 0(No drift) 6a. Left Leg: Motor (5-second hold - always test supine) - 0(No drift) 6b. Right Leg: Motor (5-second hold - always test supine) - 0(No drift) 7. Limb Ataxia (finger/nose \\T\\ heel/whitehead - test with eyes open) - 0(Absent) 8. Sensory Loss (pinprick arms/legs/face) - 0(Normal) 9. Best Language: Aphasia (description/naming/reading) - 0(No aphasia) 10. Dysarthria (speech clarity - read or repeat words) - 0(Normal) 11. Extinction and Inattention (visual/tactile/auditory/spatial/personal) - 0(No abnormality) Initials: [facility] Signatures: Dispatcher [employer] Ruiz Hernandez MD MD cha Mickail, Joel, PA PA jmm Martinez, Amelia as Calderon, Audri, RN RN aa5 Enrique Jaquez RN RN jd3 Kalyan Martin RN RN ch5 Argelia Martines tw5
[2020-12-09] MEDS ORDERED: ASPIRIN 81 MG CHEWABLE TABLET ONE (17:59)
[2020-12-10 06:01] VITALS: BP 139/81; TEMP 98.2; O2SAT 99
--- NOTE | 2020-12-10 16:42 | EKG ---
Test Date: 2020-12-09 Test Time: 17:17:43 Stationary Engineer Refrigeration: [place] MEASUREMENT RESULTS: Intervals: Rate: 67 NV: 126 QRSD: 86 QT: 432 QTc: 456 [facility]: P: 15 NV: 126 QRS: 1 T: 53 INTERPRETIVE STATEMENTS: Normal sinus rhythm Septal infarct, age undetermined Abnormal ECG Compared to ECG 01/24/2019 20:29:47 Sinus bradycardia no longer present Myocardial infarct finding still present Electronically Signed On 12-10-20 16:39:07 CDT by Mau Snowden
== END 2020-12-09 18:45 | disposition home or self-care (01) ==
LOC: ER 14:56
DX: R51.9 Headache, unspecified (principal); I10 Essential (primary) hypertension; Z86.73 Personal history of transient ischemic attack (TIA), and cerebral infarction without residual deficits
CPT/HCPCS: 93005; 85025; 80048; 36415; 83735; 85610; 82565; 80076; 84484; 83880; 70450; 71045; 70553; 70544; 70549; 96374; 99284; A9577; J7030